=== PATIENT | female | born 1990 | race Caucasian/White ===

== ENCOUNTER → 2018-08-02 16:16 | Outpatient (CLI) | payer BC, SELFPAY ==
[2018-08-05 13:29] LABS: HPV Reflexed? NOT INDICATED
== END ==
PROVIDERS: Visit Provider Obstetrics & Gynecology
DX: Z12.4 Encounter for screening for malignant neoplasm of cervix (principal)
CPT/HCPCS: 87624; 88175; G0145

== ENCOUNTER → 2019-01-16 11:57 | Outpatient (CLI) | payer OTHER, SELFPAY ==
[2019-01-16 14:29] LABS: hCG Titer Quant., Serum 9150 mIU/mL (1-3)
[2019-01-16 16:34] LABS: Chlamydia Trachomatis by PCR Negative (Negative); Neisserai gonorrhoeae by PCR Negative (Negative); Probe Check PASS; Sample Adequacy Control PASS; Specimen Processing Control PASS
== END ==
PROVIDERS: Visit Provider Advanced Practice Midwife
DX: N91.2 Amenorrhea, unspecified (principal); Z11.3 Encounter for screening for infections with a predominantly sexual mode of transmission
CPT/HCPCS: 36415; 84702; 87491; 87591

== ENCOUNTER → 2019-01-31 11:30 | Outpatient (CLI) | payer OTHER, SELFPAY ==
[2019-01-31 13:33] LABS: Absolute Lymphocyte Count 1.55 X10^3/uL (0.83-4.51); Absolute Neutrophil Count 5.9 X10^3/uL (2.0-7.7); Basophil# 0.01 X10^3/uL; Basophil% 0.1 % (0-1); Color, Urine Yellow (Yellow); Eosinophil# 0.04 X10^3/uL; Eosinophils% 0.5 % (0-5); Glucose, Dipstick Normal (Normal); Hematocrit 41.3 % (37-47); Hemoglobin 13.7 g/dL (12.0-15.0); Ketone-Dipstick Negative (Negative); Leukocyte Esterase-Dipstick 100 /ul (Negative); Lymphocyte # 1.55 X10^3/ul (4.0); Lymphocyte % 19.5 % (19-41); Mean Corp Hgb Conc 33.2 g/dL (32-36); Mean Corpuscular Hgb 31.1 pg (27.0-32.0); Mean Corpuscular Volume 93.7 fL (81-99); Mean Platelet Vol. 12.6 fl (6.2-12.0); Monocyte# 0.45 X10^3/uL; Monocyte% 5.7 % (0-10); NRBC Flagged by Analyzer 0 % (0-5); Neutrophil # 5.88 X10^3/uL (2.7-7.7); Neutrophil % 73.9 % (47-70); Nitrite-Dipstick Negative (Negative); Occult Blood-Urine 25 /ul (Negative); Platelet Count 133 K/mm3 (150-450); Protein-Dipstick Negative (Negative); RBC Distribution Width CV 11.2 % (11.6-14.6); RBC Distribution Width SD 38.7 fl (35.1-43.9); Red Blood Count 4.41 M/mm3 (4.2-5.4); Specific Gravity, Urine 1.025 (1.002-1.030); Urine Bilirubin Dipstick Negative (Negative); Urine Clarity Sl. Cloudy (Clear); Urine Urobilinogen Normal (Normal)
[2019-01-31 13:55] LABS: Amphetamine Urine VISTA NEGATIVE (<1000 ng/mL); Barbiturate Urine VISTA NEGATIVE (< 200 ng/mL); Benzodiazepine Urine VISTA NEGATIVE (< 200 ng/mL); Cocaine Urine VISTA NEGATIVE (< 300 ng/mL); Ecstacy Urine VISTA NEGATIVE (< 500 ng/mL); Methadone Urine VISTA NEGATIVE (< 300 ng/mL); PCP Urine VISTA NEGATIVE (< 25 ng/mL); THC Urine VISTA NEGATIVE (< 50 ng/mL); Vista UDS pH Range 5
[2019-01-31 13:59] LABS: Thyroid Stim Hormone (TSH) 0.75 uIU/mL (0.358-3.74)
[2019-01-31 14:40] LABS: HIV - WCH Non-Reactive (Nonreactive); Hepatitis B Surface Antigen Non-Reactive (Nonreactive); Hepatitis C Antibody Non-Reactive (Nonreactive); Rubella IgG 306.5 IU/mL; Vitamin D,25 Hydroxy 21.2 ng/mL (29.95-100.01)
[2019-02-03 02:41] LABS: Prenatal RPR NONREACTIVE (NONREACTIVE)
== END ==
PROVIDERS: Visit Provider Obstetrics & Gynecology
DX: Z34.81 Encounter for supervision of other normal pregnancy, first trimester (principal)
CPT/HCPCS: 36415; 80307; 81002; 82306; 84443; 85025; 86703; 86762; 86803; 87340

== ENCOUNTER → 2019-04-03 09:19 | Outpatient (CLI) | payer OTHER, SELFPAY | PROVIDERS: Referring Provider Obstetrics & Gynecology; Visit Provider Obstetrics & Gynecology | DX: R00.2 Palpitations (principal) | CPT/HCPCS: 93225; 93226 ==

== ENCOUNTER → 2019-06-27 15:37 | Outpatient (CLI) | payer OTHER, SELFPAY ==
[2019-06-27 17:09] LABS: Hematocrit 32.7 % (37-47); Hemoglobin 10.5 g/dL (12.0-15.0); Mean Corp Hgb Conc 32.1 g/dL (32-36); Mean Corpuscular Hgb 29.4 pg (27.0-32.0); Mean Corpuscular Volume 91.6 fL (81-99); Mean Platelet Vol. 12.4 fl (6.2-12.0); Platelet Count 130 K/mm3 (150-450); RBC Distribution Width CV 11.8 % (11.6-14.6); RBC Distribution Width SD 39.2 fl (35.1-43.9); Red Blood Count 3.57 M/mm3 (4.2-5.4)
[2019-06-27 17:12] LABS: Glucose Challenge Gest 1H 50g 100 mg/dL (70-140)
[2019-06-27 17:25] LABS: Vitamin D,25 Hydroxy 34.6 ng/mL
== END ==
PROVIDERS: Referring Provider Obstetrics & Gynecology; Visit Provider Obstetrics & Gynecology
DX: Z34.83 Encounter for supervision of other normal pregnancy, third trimester (principal)
CPT/HCPCS: 36415; 82306; 82950; 85027

== ENCOUNTER → 2019-07-26 10:38 | Outpatient (CLI) | payer OTHER, SELFPAY ==
[2019-07-26 11:29] LABS: Hematocrit 35.5 % (37-47); Hemoglobin 11.4 g/dL (12.0-15.0); Mean Corp Hgb Conc 32.1 g/dL (32-36); Mean Corpuscular Hgb 29.8 pg (27.0-32.0); Mean Corpuscular Volume 92.7 fL (81-99); Mean Platelet Vol. 11.7 fl (6.2-12.0); Platelet Count 123 K/mm3 (150-450); RBC Distribution Width CV 14.6 % (11.6-14.6); RBC Distribution Width SD 48.6 fl (35.1-43.9); Red Blood Count 3.83 M/mm3 (4.2-5.4); White Blood Count 11.5 K/mm3 (4.4-11.0)
== END ==
PROVIDERS: Visit Provider Obstetrics & Gynecology
DX: O99.113 Other diseases of the blood and blood-forming organs and certain disorders involving the immune mechanism complicating pregnancy, third trimester (principal); D69.6 Thrombocytopenia, unspecified; Z3A.00 Weeks of gestation of pregnancy not specified
CPT/HCPCS: 36415; 85027

== ENCOUNTER → 2019-08-21 | Outpatient (CLI) | payer OTHER, SELFPAY | END | disposition home or self-care (01) | PROVIDERS: Visit Provider Obstetrics & Gynecology | DX: Z36.85 Encounter for antenatal screening for Streptococcus B (principal) | CPT/HCPCS: 87081 ==

== ENCOUNTER 2019-08-24 00:05 | Inpatient (IN) | payer OTHER, SELFPAY ==
[2019-08-24] VITALS (66 sets, daily range): BP systolic 80–143; BP diastolic 49–86; PULSE 84–202; RESP 16; TEMP 36.7–38.4; O2SAT 86–100; BMI 25.6
[2019-08-24] MEDS: Lactated Ringers 1,000 ML 50 ML IV (00:35)
[2019-08-24] MEDS: Lactated Ringers 500 ML 999 ML IV ×3 (00:55→07:39)
[2019-08-24 01:07] LABS: Absolute Lymphocyte Count 2.53 X10^3/uL (0.83-4.51); Basophil# 0.05 X10^3/uL; Basophil% 0.3 % (0-1); Eosinophil# 0.19 X10^3/uL; Eosinophils% 1.2 % (0-5); Hematocrit 37.2 % (37-47); Lymphocyte # 2.53 X10^3/ul (4.0); Lymphocyte % 16.6 % (19-41); Mean Corp Hgb Conc 32.3 g/dL (32-36); Mean Corpuscular Hgb 29.7 pg (27.0-32.0); Mean Corpuscular Volume 92.1 fL (81-99); Mean Platelet Vol. 12.2 fl (6.2-12.0); Monocyte# 1.36 X10^3/uL; Monocyte% 8.9 % (0-10); NRBC Flagged by Analyzer 0 % (0-5); Neutrophil # 10.95 X10^3/uL (2.7-7.7); Neutrophil % 71.7 % (47-70); Platelet Count 132 K/mm3 (150-450); RBC Distribution Width CV 14.3 % (11.6-14.6); RBC Distribution Width SD 48.7 fl (35.1-43.9); Red Blood Count 4.04 M/mm3 (4.2-5.4); White Blood Count 15.3 K/mm3 (4.4-11.0)
[2019-08-24 03:09] LABS: Probe Check PASS
[2019-08-24 03:10] LABS: Group B Strep DNA By PCR POSITIVE (Negative)
[2019-08-24] MEDS: Oxytocin 30 units/NS 500 ml 30 UNITS/500 ML IV.SOLN IV (03:58)
[2019-08-24] MEDS: Lactated Ringers 1,000 ML 200 ML IV ×2 (06:59→13:37)
[2019-08-24] MEDS: fentaNYL-bupivacaine (epidural) 100 ML BAG EPIDURAL ×3 (08:00→12:53)
--- NOTE | 2019-08-24 08:04 | HP.PCM_ITS ---
- Problem List (1) 36 weeks gestation of Status: Acute (2) Spontaneous rupture of amniotic membranes Status: Acute History Date of Admission: 08/24/19 Final MARGO: 09/15/19 Final MARGO Source: US <20 weeks Gestational age: 36 Weeks and 6 Days History of this : This is a 29 year-old, G [2], P [0], at 36 weeks gestational age. Allergies No Known Allergies Allergy (Verified 08/24/19 01:13) Home Medications: Home Medications Vits [Prenatabs FA] 1 tab PO DAILY 08/24/19 Smoking Status: Never smoker Alcohol: None Number of Fetus(es): 1 NST - FHR Rate Baby A Baseline: 140 Variability:: Moderate Accelerations:: 15 x 15 Decelerations:: Variable NST Reactive:: Yes FHR Category:: Category II Uterine Activity:: Q3 minutes History Past Pregnancies: PRIOR DELIVERY HISTORY DEL DATE GEST LAB WT LB WT OZ TYPE ANES LABOR TX May 14 6 0 0 0 Sab General No Labs: Mom's Problem List Problem Status Onset Code 36 weeks gestation of Acute [id number].[id number] Spontaneous rupture of amniotic membranes Acute Mom's Labs & Results 08/24/19 08/24/19 08/24/19 00:03 00:20 00:35 WBC 15.3 H RBC 4.04 L Hgb 12.0 Hct 37.2 MCV 92.1 MCH 29.7 MCHC 32.3 RDW Std Deviation 48.7 H RDW Coeff of Johanna 14.3 Plt Count 132 L MPV 12.2 H Immature Gran % (Auto) 1.300 H Neut % (Auto) 71.7 H Lymph % (Auto) 16.6 L Mclean % (Auto) 8.9 Eos % (Auto) 1.2 Baso % (Auto) 0.3 Absolute Neuts (auto) 11.0 H Absolute Lymphs (auto) 2.53 Nucleated RBC % 0 Group B Strep DNA POSITIVE H Specimen Comment Not Reportable Blood Type A POSITIVE Antibody Screen NEGATIVE Course Did the patient receive Yes care? Labs Blood Type: A RH: POSITIVE RPR/VDRL/Syphilis Nonreactive Rubella status Immune HbSAg Negative Date Done: 01/31/19 Chlamydia Negative Gonorrhea Negative HIV/AIDS Non-Reactive Group B Strep: Collected on Admission Current Obstetrical History Gestational Diabetes No Incompetent Cervix No Infertility No IUGR No Macrosomia No Hypertension/Pre-eclampsia No Placenta Previa/Abruption No PTL/PROM Yes Uterine anomaly No Oligohydramnios No Polyhydramnios No Multiple gestation No Past Medical History Asthma No Diabetes No Hypertension No Heart disease No Mitral valve prolapse No Neurologic/Seizure disorder/ No Migraines Kidney disease No Liver disease No Varicosities No Clotting disorders/Hx of DVT No Thyroid Dysfunction No Other medical diseases No Psychiatric disorders No Major trauma No Abnormal PAP smear No Sleep apnea No Mammogram in the last 2 years No Enter DETAILS of medical pt wore Holter monitor early (first history week of April) for heart palpitations, then it stopped Social History Marital Status: Alleged father Victor Manuel Keating Hx Smoking No Smoking Status Never smoker Expected Delivery Method: Spontaneous Vaginal Number of Visits: 13 Review of Systems Constitutional: Denies: Chills, Fever, Weight Change HEENT: Denies: Head Aches, Sinus Congestion, Sinus Drainage Cardiovascular: Denies: Chest Pain, Palpitations Respiratory: Denies: Cough, Shortness of breath at rest, Sputum production Gastrointestinal: Denies: Abdominal Pain, Nausea, Vomiting Genitourinary: Denies: Dysuria Musculoskeletal: Denies: Joint Pain, Joint Tenderness Skin: Denies: Rash, Wounds Neurological: Denies: Numbness, Tingling, Focal weakness Psychiatric: Denies: Anxiety, Depression, Homicidal Ideations, Suicidal Ideations Hematologic/ Lymphatic: Denies: Easy Bruising, Easy Bleeding Physical Exam Vitals: Vital Signs Temp Pulse BP Pulse Ox 98.6 F 103 H 110/66 87 08/24/19 06:22 08/24/19 08:03 08/24/19 08:03 08/24/19 08:02 General: Alert, Oriented x3, No apparent distress HEENT: Atraumatic, Normocephalic. 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 Negative for: Vulvar lesions Estimated gestational size: Appropriate for gestational size Presentation: Cephalic Cervix Dilation (cm): 3 Station: -1 Effacement (%): 70 Assessment/Plan All Active Problems 36 weeks gestation of (Acute) Spontaneous rupture of amniotic membranes (Acute) A/P: This is a 29 year-old, G [2], P [0], at 36 weeks gestational age. Here with SROM at 2300 08/23/2019 NST Category II with + accels, variables, moderate variability, UC Q3 minutes Epidural just placed Will restart Pitocin for augmentation after latent labor Expect Essential Procedure Criteria Procedure Essential: Yes Criteria Note: SROM Labor Risk to Patient if Procedure Delayed: Threat to patient's life if surgery or procedure is not performed
--- NOTE | 2019-08-24 08:30 | PCM.PN.BLA ---
Progress Note LABOR PROGRESS NOTE Uncomfortable with contractions. Just finished epidural. AVSS GEN - NAD, AAO x3 FHR 140, moderate variability, + acceleration 10 x 10, + deceleration - timing unclear TOCO 2-3/10 min SVE 4/70/-2, soft and midposition A/P: 29yo @ 36 6/7wga with PROM in latent labor, Cat I FHR -Continue pitocin as tolerated by mother and fetus -Will plan to place IUPC when more comfortable in next hour. -Continue PCN for GBS pos NAAT STROKE Vital Signs/Narrative: Vital Signs Temp Pulse BP Pulse Ox 08/24/19 09:35 103 H 100 08/24/19 08:47 93 99/62 08/24/19 08:43 95 99 08/24/19 08:41 97 93/54 L 08/24/19 08:38 92 91/52 L 100 08/24/19 08:36 97 87/49 L 08/24/19 08:32 99 80/57 L 86 08/24/19 08:29 98.6 F 95 100 08/24/19 08:27 94 101/60 08/24/19 08:18 105 H 100 08/24/19 08:17 105 H 104/57 L 08/24/19 08:13 104 H 100 08/24/19 08:12 100 110/64 08/24/19 08:08 101 H 94/56 L 96 08/24/19 08:07 106 H 113/65 08/24/19 08:03 103 H 110/66 100 08/24/19 08:02 103 H 113/66 87 08/24/19 08:00 102 H 102/57 L 08/24/19 07:57 112 H 99 08/24/19 07:54 105 H 86 08/24/19 07:52 111 H 143/86 H 98 08/24/19 07:46 111 H 98 08/24/19 07:37 202 H 100 08/24/19 07:05 110 H 116/82 H 08/24/19 06:22 98.6 F 96 98/50 L 96
[2019-08-24] MEDS: Ondansetron 4 MG/2 ML Vial IV (08:53)
[2019-08-24] MEDS: 0.9% Saline Lock 10 ML Syringe IV ×2 (08:53→17:19)
[2019-08-24] MEDS: proCHLORPERazine 10 MG/2 ML Vial IV (11:22)
[2019-08-24] MEDS: Acetaminophen 500 MG Tablet 1000 MG PO (13:53)
[2019-08-24] MEDS: Oxytocin 30 units/NS 500 ml 30 UNITS/500 ML IV.SOLN 334 UNITS IV (14:34)
--- NOTE | 2019-08-24 14:46 | OP.PCM_ITS ---
Problem List (1) (spontaneous vaginal delivery) Status: Acute Vaginal Delivery Maternal Presentation: Active Labor, Spontaneous Rupture of Membranes Method of Induction: - - Pitocin augmentation Amniotic Membrane Rupture Type: Spontaneous at home Rupture of Membrane time: 2300h 08/23/19 Amniotic Fluid Description: Clear Final MARGO: 09/15/19 Final MARGO Source: US <20 weeks Gestational age: 36 Weeks and 6 Days Date of Procedure: 08/24/19 Pre-Operative Diagnosis: 36 6/7wga, SROM Post-Operative Diagnosis: 36 6/7wga, SROM Surgery/ Procedure Performed: Vacuum Assisted Vaginal Delivery Anesthesiologist: Abram Bruner Type of Anesthesia: Epidural Description of Procedure: Patient was FD/+1 station on my arrival and pushing to +2 station and OA. FHR Cat II with recurrent deepening variable decelerations. Recent elevated temperature and baseline at 160 bpm concerning for suspected triple I. IV antibiotics ordered. I advised vacuum assisted vaginal delivery given Cat II FHR and anticipating at least additional hour in second stage. Reviewed vacuum associated risks as well as section as alternative. Patient desired to proceed. The Kiwi cap was placed at the flexion point and 500mmHg suction applied at 1409h. Over 20 minutes with 10 pulls and no pop offs, waning maternal effort the head descended, to +5 station. The suction was released and Kiwi cap removed. The infant shoulders delivered with ease to reveal a vigorous female at 1429h. The infant was placed on the maternal abdomen and furt her attended by nursery personnel. The cord was doubly clamped and cut after approximately 4 minutes of life. Cord gases were obtained. The placenta delivered spontaneously and appeared intact on inspection. A small vaginal laceration was repaired with 3-0 Vicryl with hemostasis attained. Perineum was intact Sponge and needle counts correct x 2. Presentation: Vertex Placental Delivery Description: Expressed Placenta Disposition: [facility] Cord Vessel Description: 3 Vessels Nuchal Cord Compression: Without compression Cord Gases drawn per routine: ABG, VBG Cord Entanglement: None Drain: Arboleda to straight drain Estimated Blood Loss: 300 ml A gender: Female (1 minute): 8 (5 minute): 9 Episiotomy Description: None Laceration: Vaginal Extension/lac Medications given after delivery: IV Pitocin Complications: None
[2019-08-24] MEDS: Acetaminophen 325 MG Tablet PO (22:28)
[2019-08-25 03:58] VITALS: BP 96/58; PULSE 85; RESP 16; TEMP 36.6
[2019-08-25] MEDS: Ibuprofen 600 MG Tablet PO ×3 (04:00→20:34)
[2019-08-25] MEDS: Acetaminophen 325 MG Tablet PO (06:03)
[2019-08-25 07:45] VITALS: BP 89/55; PULSE 95; RESP 16; TEMP 36.5
--- NOTE | 2019-08-25 09:15 | PCM.PN.OB ---
Patient Problems: Active and Suspected Problems 36 weeks gestation of (Acute) Spontaneous rupture of amniotic membranes (Acute) (spontaneous vaginal delivery) (Acute) Subjective: No issues overnight. Pain is controlled. OOB to chair. Denies heavy lochia. , working on latch with clinical education consultant. Voiding without difficulty. Objective: avss - Physical Exam Vitals/I&O's: Vital Signs Temp Pulse Resp BP Pulse Ox 97.7 F L 95 16 89/55 L 96 08/25/19 07:45 08/25/19 07:45 08/25/19 07:45 08/25/19 07:45 08/24/19 17:08 Oxygen Delivery Method Room Air Weight: 74.298 kg Body Mass Index (BMI) 25.6 Intake and Output for Last 24 Hours 08/23/19 08/24/19 08/25/19 23:59 23:59 23:59 Intake Total 5242.59 / 5242.59 Output Total 5350 / 5350 Balance -107.41 / -107.41 General: Alert, Oriented x3, Cooperative, No apparent distress HEENT: Atraumatic, Normocephalic Lungs: Clear to auscultation, Normal air movement Cardiovascular: Regular rate, Regular Rhythm, Normal S1, Normal S2 Abdomen: Soft, Non Tender, Non-Distended, - - Fundus firm and nontender Extremities: No Calf Tenderness, - - trace LE edema Neurological: Neuro grossly intact Psych/Mental Status: Normal Affect, Appropriate, Alert and oriented to time, place, person, mood and affect Current Medications Acetaminophen (Tylenol) 325 - 650 mg PO Q4H PRN PRN PRN Reason: Pain Score 1-3/10 Last Admin: 08/25/19 06:03 Dose: 650 mg Documented by: Bisacodyl (Dulcolax) 10 mg RECTAL UD PRN PRN Reason: If no BM Dibucaine (Dibucaine) 1 applic TOPICAL TID PRN PRN; Protocol PRN Reason: Discomfort Hydrocortisone (Hytone) 1 applic TOPICAL TID PRN PRN; Protocol PRN Reason: Discomfort Ibuprofen (Motrin) 600 mg PO Q6H PRN PRN PRN Reason: Pain Score 1-3/10 Last Admin: 08/25/19 04:00 Dose: 600 mg Documented by: Methylergonovine Maleate (Methergine) 0.2 mg IM X1 PRN PRN Reason: Excess bleeding/uterine atony Multivit/Folic Acid/Iron (Prenatabs Fa) 1 tablet PO DAILY@1200 BLANCA Senna/Docusate Sodium (Senokot-S, Cristal-Colace) 1 - 2 tablet PO DAILY PRN PRN PRN Reason: Constipation Simethicone (Mylicon) 80 mg PO PCHS PRN PRN Reason: Indigestion/Stomach pain Sodium Chloride () 5 - 15 ml IV UD PRN PRN Reason: SALINE FLUSH Last Admin: 08/24/19 17:19 Dose: 10 ml Documented by: Medical Necessity - Tobacco Use Smoking Status: Never smoker Assessment/Plan All Active Problems 36 weeks gestation of (Acute) Spontaneous rupture of amniotic membranes (Acute) (spontaneous vaginal delivery) (Acute) 29yo P1 PPD#1 s/p VAVD @ 36 6/7wga, doing well. -Rh pos -Routine care - -Plan for d/c home tomorrow
[2019-08-25] MEDS: Prenatal Vits Tablet 1 TABLET PO (11:44)
[2019-08-25 12:00] VITALS: BP 99/61; PULSE 94; RESP 16; TEMP 37.1
[2019-08-25 20:00] VITALS: BP 94/63; PULSE 97; RESP 14; TEMP 36.7
[2019-08-25] MEDS: Senna/Docusate Sodium 1 Tablet PO (20:34)
[2019-08-26 02:00] VITALS: BP 104/64; PULSE 86; RESP 16; TEMP 36.6
[2019-08-26] MEDS: Acetaminophen 325 MG Tablet PO (02:08)
[2019-08-26] MEDS: Ibuprofen 600 MG Tablet PO ×2 (06:05→13:24)
[2019-08-26 08:21] VITALS: BP 88/60; PULSE 74; RESP 16; TEMP 36.9
--- NOTE | 2019-08-26 10:57 | DCINST_ITS ---
Discharge Diet: No Restrictions Discharge Activity: Return to Normal Activity, May not drive while taking narcotic pain medications., May Shower May resume sexual activity in: 4-6 weeks Additional Activity Instructions:: Nothing in the vagina for 4-6 weeks. You may return to work/school in 6 weeks. Call your doctor if your incision/area has: Continuous Slow Oozing, Sudden Increased Bleeding, Increased Pain/ Swelling, Increased Redness, Foul Smelling Discharge Additional Instructions: If you experience any of the following, contact your healthcare provider. * Bleeding that soaks a pad every hour for 2 hours * Fever 100.4 or higher * Unrelieved incision or abdominal pain * Swelling, redness, discharge or bleeding from your incision or episiotomy site * Your incision begins to separate * Problems urinating (including inability to urinate or burning while urinating). * Visual changes * Severe headache * Flu-like symptoms * Pain or redness in one of both of your breasts * Pain, warmth, tenderness or swelling in your legs, especially the calf area * Frequent nausea and vomiting * Symptoms of depression or anxiety If you experience any of the following, call 911 or go to the nearest Emergency Room. * Chest pain * Problems breathing * Seizure activity * Partial or complete paralysis of a body part, slurred speech, weakness or drooping of the face, or a sudden inability to walk or hold your balance Allergies/Adverse Reactions: Allergies No Known Allergies Allergy (Verified 08/24/19 01:13) Medications to take at Discharge Vits [Prenatabs FA] 1 tab PO DAILY 08/24/19 Please Follow Up With: Carlee Mukherjee MD When: Call to make an appointment with your doctor in 6 weeks. If you have problems with depression to call immediately. Test Results: Test results from this visit will be discussed in further detail at your follow- up appointment, if applicable.
--- NOTE | 2019-08-26 10:57 | PCM.DCVAG ---
Discharge Diet: No Restrictions Discharge Activity: Return to Normal Activity, May not drive while taking narcotic pain medications., May Shower May resume sexual activity in: 4-6 weeks Additional Activity Instructions:: Nothing in the vagina for 4-6 weeks. You may return to work/school in 6 weeks. Call your doctor if your incision/area has: Continuous Slow Oozing, Sudden Increased Bleeding, Increased Pain/ Swelling, Increased Redness, Foul Smelling Discharge Additional Instructions: If you experience any of the following, contact your healthcare provider. Bleeding that soaks a pad every hour for 2 hours Fever 100.4 or higher Unrelieved incision or abdominal pain Swelling, redness, discharge or bleeding from your incision or episiotomy site Your incision begins to separate Problems urinating (including inability to urinate or burning while urinating). Visual changes Severe headache Flu-like symptoms Pain or redness in one of both of your breasts Pain, warmth, tenderness or swelling in your legs, especially the calf area Frequent nausea and vomiting Symptoms of depression or anxiety If you experience any of the following, call 911 or go to the nearest Emergency Room. Chest pain Problems breathing Seizure activity Partial or complete paralysis of a body part, slurred speech, weakness or drooping of the face, or a sudden inability to walk or hold your balance Allergies/Adverse Reactions: Allergies No Known Allergies Allergy (Verified 08/24/19 01:13) Medications to take at Discharge Vits [Prenatabs FA] 1 tab PO DAILY 08/24/19 Please Follow Up With: Carlee Mukherjee MD When: Call to make an appointment with your doctor in 6 weeks. If you have problems with depression to call immediately. Test Results: Test results from this visit will be discussed in further detail at your follow-up appointment, if applicable.
--- NOTE | 2019-08-26 11:25 | PN.OBGYN_ITS ---
Patient Problems: Active and Suspected Problems 36 weeks gestation of (Acute) Spontaneous rupture of amniotic membranes (Acute) (spontaneous vaginal delivery) (Acute) Subjective: Feeling okay, but reporting some anxiety. It isn't bad, but feels like tiny knots in her stomach. Daughter is now under bili lights and the unknown worries her. Denies heavy bleeding. 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 is going well, but wants to work with at next feed just to make sure she's producing enough. Would like to stay at the hospital with baby if she has to stay for lights. Objective: VSS. Fundus, firm, midline, u/1. Lochia rubra moderate. well. Sli ght anxiety, but understands when to call. - Physical Exam Vitals/I&O's: Vital Signs Temp Pulse Resp BP Pulse Ox 98.5 F 74 16 88/60 L 96 08/26/19 08:21 08/26/19 08:21 08/26/19 08:21 08/26/19 08:21 08/24/19 17:08 Oxygen Delivery Method Room Air Weight: 74.298 kg Body Mass Index (BMI) 25.6 Intake and Output for Last 24 Hours 08/24/19 08/25/19 08/26/19 23:59 23:59 23:59 Intake Total 5242.59 / 5242.59 Output Total 5350 / 5350 Balance -107.41 / -107.41 General: Alert, Oriented x3, Cooperative HEENT: Atraumatic, PERRLA, EOMI, Normocephalic Neck: Supple, No JVD, Negative Carotid Bruits Lungs: Clear to auscultation, Normal air movement Cardiovascular: Regular rate, No murmurs Abdomen: Bowel Sounds Present, Soft, Non Tender, Passing Flatus Extremities: No edema, Capillary Refill Less than 3 Seconds Skin: No rashes, No breakdown Musculoskeletal: No Tenderness to Palpation of Joints or Extremities Neurological: Cranial nerves II-XII grossly intact Psych/Mental Status: Normal Affect, Appropriate, Anxious - over daughter under bili lights and the unknown Current Medications Acetaminophen (Tylenol) 325 - 650 mg PO Q4H PRN PRN PRN Reason: Pain Score 1-3/10 Last Admin: 08/26/19 02:08 Dose: 650 mg Documented by: Bisacodyl (Dulcolax) 10 mg RECTAL UD PRN PRN Reason: If no BM Dibucaine (Dibucaine) 1 applic TOPICAL TID PRN PRN; Protocol PRN Reason: Discomfort Hydrocortisone (Hytone) 1 applic TOPICAL TID PRN PRN; Protocol PRN Reason: Discomfort Ibuprofen (Motrin) 600 mg PO Q6H PRN PRN PRN Reason: Pain Score 1-3/10 Last Admin: 08/26/19 06:05 Dose: 600 mg Documented by: Methylergonovine Maleate (Methergine) 0.2 mg IM X1 PRN PRN Reason: Excess bleeding/uterine atony Multivit/Folic Acid/Iron (Prenatabs Fa) 1 tablet PO DAILY@1200 BLANCA Last Admin: 08/25/19 11:44 Dose: 1 tablet Documented by: Senna/Docusate Sodium (Senokot-S, Cristal-Colace) 1 - 2 tablet PO DAILY PRN PRN PRN Reason: Constipation Last Admin: 08/25/19 20:34 Dose: 1 tablet Documented by: Simethicone (Mylicon) 80 mg PO PCHS PRN PRN Reason: Indigestion/Stomach pain Sodium Chloride () 5 - 15 ml IV UD PRN PRN Reason: SALINE FLUSH Last Admin: 08/24/19 17:19 Dose: 10 ml Documented by: Medical Necessity - Tobacco Use Smoking Status: Never smoker Assessment/Plan All Active Problems 36 weeks gestation of (Acute) Spontaneous rupture of amniotic membranes (Acute) (spontaneous vaginal delivery) (Acute) 29yo P1 PPD#2 s/p VAVD @ 36 6/7wga, doing well. -Routine care - -Daughter under bilirubin lights -Plan for d/c to hotel status and stay until tomorrow -Will do social visit in AM to check on anxiety
[2019-08-26 15:22] VITALS: BP 109/62; PULSE 94; RESP 16; TEMP 36.9
[2019-08-26] MEDS: Prenatal Vits Tablet 1 TABLET PO (15:25)
[2019-08-26 17:50] VITALS: BP 109/62; PULSE 94; RESP 16; TEMP 36.9
== END 2019-08-26 18:20 | disposition home or self-care (01) | DRG 806 ==
PROVIDERS: Admitting Provider Obstetrics & Gynecology; Referring Provider Obstetrics & Gynecology; Visit Provider Obstetrics & Gynecology
DX: O76 Abnormality in fetal heart rate and rhythm complicating labor and delivery (principal); O71.4 Obstetric high vaginal laceration alone; Z37.0 Single live birth; O42.913 Preterm premature rupture of membranes, unspecified as to length of time between rupture and onset of labor, third trimester; Z3A.36 36 weeks gestation of pregnancy; O99.824 Streptococcus B carrier state complicating childbirth
CPT/HCPCS: 59025; 59050; 85025; 86850; 86900; 86901; 87653; 99218; J7120; A4216; G0378; J2405; J3490

== ENCOUNTER 2019-08-30 11:21 | Day surgery (SDC) | payer OTHER, SELFPAY ==
[2019-08-24 01:17] VITALS: BMI 25.6
== END 2019-08-30 12:24 | disposition home or self-care (01) ==
LOC: SDC 11:24
PROVIDERS: Visit Provider Anesthesiology
PROC: 3E0R3GC Introduction of Other Therapeutic Substance into Spinal Canal, Percutaneous Approach (ICD-10-PCS; CPT 62273; principal; 2019-08-30 11:00)
DX: G97.1 Other reaction to spinal and lumbar puncture (principal)
CPT/HCPCS: 62273; J7120

== ENCOUNTER → 2020-07-12 | Outpatient (CLI) | payer OTHER, SELFPAY ==
[2019-08-24 01:17] VITALS: BMI 25.6
[2020-07-16 06:07] LABS: Chlamydia By Nucleic Acid AMP Negative (Negative)
[2020-07-16 08:49] LABS: Gonococcus By Nucleic Acid AMP Negative (Negative)
== END | disposition home or self-care (01) ==
LOC: LABSPEC 13:46
PROVIDERS: Visit Provider Student in an Organized Health Care Education/Training Program
DX: Z11.3 Encounter for screening for infections with a predominantly sexual mode of transmission (principal)
CPT/HCPCS: 87491; 87591

== ENCOUNTER → 2020-07-16 09:09 | Outpatient (CLI) | payer OTHER, SELFPAY ==
[2019-08-24 01:17] VITALS: BMI 25.6
[2020-07-16 10:49] LABS: Absolute Lymphocyte Count 1.42 X10^3/uL (0.83-4.51); Absolute Neutrophil Count 5.4 X10^3/uL (2.0-7.7); Basophil# 0.03 X10^3/uL; Basophil% 0.4 % (0-1); Eosinophil# 0.05 X10^3/uL; Eosinophils% 0.7 % (0-5); Hematocrit 41.7 % (37-47); Hemoglobin 13.7 g/dL (12.0-15.0); Lymphocyte # 1.42 X10^3/ul (4.0); Lymphocyte % 19.1 % (19-41); Mean Corp Hgb Conc 32.9 g/dL (32-36); Mean Corpuscular Volume 94.3 fL (81-99); Mean Platelet Vol. 13.3 fl (6.2-12.0); Monocyte# 0.52 X10^3/uL; NRBC Flagged by Analyzer 0 % (0-5); Neutrophil % 72.5 % (47-70); Platelet Count 135 K/mm3 (150-450); RBC Distribution Width CV 11.6 % (11.6-14.6); RBC Distribution Width SD 39.9 fl (35.1-43.9); Red Blood Count 4.42 M/mm3 (4.2-5.4); White Blood Count 7.4 K/mm3 (4.4-11.0)
[2020-07-16 11:36] LABS: HIV - WCH Non-Reactive (Nonreactive); Hepatitis B Surface Antigen Non-Reactive (Nonreactive); Hepatitis C Antibody Non-Reactive (Nonreactive); Rubella IgG Reactive (Nonreactive); Syphilis Antibodies Non-reactive
== END ==
PROVIDERS: Visit Provider Student in an Organized Health Care Education/Training Program
DX: Z34.81 Encounter for supervision of other normal pregnancy, first trimester (principal)
CPT/HCPCS: 85025; 86703; 86762; 86780; 86803; 87086; 87088; 87340

== ENCOUNTER → 2020-12-06 09:27 | Outpatient (CLI) | payer BC, SELFPAY ==
[2019-08-24 01:17] VITALS: BMI 25.6
[2020-12-06 10:33] LABS: Hematocrit 35.7 % (37-47); Hemoglobin 11.5 g/dL (12.0-15.0); Mean Corp Hgb Conc 32.2 g/dL (32-36); Mean Corpuscular Hgb 30.2 pg (27.0-32.0); Mean Corpuscular Volume 93.7 fL (81-99); Mean Platelet Vol. 12.4 fl (6.2-12.0); Platelet Count 104 K/mm3 (150-450); RBC Distribution Width CV 11.8 % (11.6-14.6); RBC Distribution Width SD 40.1 fl (35.1-43.9); Red Blood Count 3.81 M/mm3 (4.2-5.4); White Blood Count 7.6 K/mm3 (4.4-11.0)
[2020-12-06 10:49] LABS: Glucose Challenge Gest 1H 50g 76 mg/dL (70-140)
== END ==
PROVIDERS: Visit Provider Obstetrics & Gynecology
DX: Z34.82 Encounter for supervision of other normal pregnancy, second trimester (principal)
CPT/HCPCS: 36415; 82950; 85027

== ENCOUNTER 2020-12-18 18:46 | Outpatient (CLI) | payer BC, SELFPAY ==
[2020-12-18 18:50] VITALS: BP 125/74; PULSE 105; TEMP 36.5
[2020-12-18 18:54] VITALS: BMI 20.7
--- NOTE | 2020-12-18 18:59 | OB.TRI.HP_ITS ---
HPI - General HPI Narrative COOPER CROCKETT, is a 30 F who presents with c/o pelvic pressure and pain. She was lying down resting, when she felt immense pelvic pressure and felt something hard vaginally like a head. Her , Victor Manuel, looked and noted some large amount of purplish tissue. Patient denies passage of tissue, discharge, mucus or fluid outside of the vagina. Denies urinary retention or feels of stool retention. Maternal Data Information MARGO Calculator Estimated Delivery Date Method Current WG Current Estimate 02/26/21 LMP (Certain) 30w 0d Other Estimates 02/26/21 Manual 30w 0d [facility] Medical History (Updated 12/18/20 @ 19:[address] Carlee He MD) Gestational thrombocytopenia Home Medications vit,[id number] 1 tab PO DAILY 08/24/19 [History Last Taken 08/22/19 19:00] Allergy/AdvReac Type Severity Reaction Status Date / Time No Known Allergies Allergy Verified 12/18/20 19:13 Social History Smoking Status: Never smoker History 2 Elective abortions 0 Hx Para 1 Spontaneous abortions 0 Hx # Term Pregnancies 0 Ectopic pregnancies 0 Hx # Pregnancies 1 Multiple births 0 # of living children 1 Past Pregnancies Del. Date Name GA/Weeks Outcome Route Bth Weight Gen Labor Lgth Anesthesia Del Locatn Provider FOB 08/24/19 Scotlyn 36 live - vacuum 6lb 8 oz Female 12 e pidural [facility] Delivery Date: 08/24/19 pprom, labor, chorioamnionitis Carlee Mukherjee Constitutional Constitutional: Reports other Details: shakes Gastrointestinal Gastrointestinal: Reports abdominal pain and other Details: lower belly pressure Genitourinary Genitourinary: Reports abdominal discomfort, contractions, movement, urinary frequency and other Details: no vaginal bleeding, denies mucus plug or fluid leakage ; Denies burning urination, difficulty urinating, flank pain, hematuria, low back pain or urinary incontinence Physical Exam Const alert, oriented x3 and no apparent distress HEENT normocephalic Resp normal respiratory effort and normal air movement GI normal to inspection, nondistended, normoactive bowel sounds, soft to palpation, non-tender and non-distended GI Narrative: No hemorrhoids Inspection: gravid appearance of the vagina normal Narrative: ft/l/h, posterior and firm on exam Exam with Valsalva with no pelvic organ prolapse appreciated Extremity no pedal edema NST FHR Rate Baby A Baseline: 130 Variability:: Moderate Accelerations:: 15 x 15 Decelerations:: None NST Reactive:: Yes FHR Category:: Category I Uterine Activity:: irritability Assessment & Plan (1) 30 weeks gestation of : PLAN: Follow up U/A FFN sent
[2020-12-18 19:34] VITALS: BP 93/55; PULSE 88; TEMP 37.1; O2SAT 99
[2020-12-18 19:51] LABS: Fetal Fibronectin Negative
[2020-12-18 20:02] LABS: Mucous, Urine 0 SEEN /hpf (<or=2+); Red Blood Cells-Urine 0 SEEN /hpf (0-5)
[2020-12-18 20:06] LABS: Color, Urine Yellow (Yellow); Glucose, Dipstick Normal (Normal); Ketone-Dipstick 15 mg/dl (Negative); Leukocyte Esterase-Dipstick 100 /ul (Negative); Nitrite-Dipstick Negative (Negative); Occult Blood-Urine Negative /ul (Negative); Protein-Dipstick 30 mg/dl (Negative); Urine Bilirubin Dipstick Negative (Negative); Urine Clarity Clear (Clear); Urine Urobilinogen Normal (Normal); Urine pH 6.5 (5.0 - 8.0)
[2020-12-18 20:12] LABS: Squamous Epithelial Cells - UA 5-10 SEEN /hpf (5-10); White Blood Cells 5-10 SEEN /hpf (0-5)
[2020-12-18 20:13] LABS: Bacteria 1+ /hpf (None Seen)
--- NOTE | 2020-12-18 21:13 | OB.TRI.NOTE ---
HPI - General HPI Narrative COOPER CROCKETT, is a 30 F who presents c/o pelvic pressure and pain. Symptoms improved from prior, but feels anxious about what had happened previously. Relates contractions less frequent than every 10 minutes since prior evaluation and irregular, mild. Nurse relates spotting on repeat exam. Maternal Data Information MARGO Calculator Estimated Delivery Date Method Current WG Current Estimate 02/26/21 LMP (Certain) 30w 0d Other Estimates 02/26/21 Manual 30w 0d PFSH PFSH Medical History (Updated 12/18/20 @ 21:[address] Carlee He MD) Gestational thrombocytopenia Home Medications vit,[id number] 1 tab PO DAILY 08/24/19 [History Last Taken 08/22/19 19:00] Allergy/AdvReac Type Severity Reaction Status Date / Time No Known Allergies Allergy Verified 12/18/20 19:13 Social History Smoking Status: Never smoker History 2 Elective abortions 0 Hx Para 1 Spontaneous abortions 0 Hx # Term Pregnancies 0 Ectopic pregnancies 0 Hx # Pregnancies 1 Multiple births 0 # of living children 1 Past Pregnancies Del. Date Name GA/Weeks Outcome Route Bth Weight Infant Gen Labor Lgth Anesthesia Del Locatn Provider FOB 08/24/19 Scotlyn 36 live - vacuum 6lb 8 oz Female 12 epidural [facility] Delivery Date: 08/24/19 pprom, labor, chorioamnionitis Carlee Mukherjee Assessment & Plan (1) 30 weeks gestation of : (2) False labor: PLAN: History suggests transient enlarged vulvovaginal varicosity Repeat SVE by RN /-3 with spotting noted. Cervical length performed with 38-48mm, funnel present, 39-47mm with Valsalva Likely difference in examiners over time. Given FFN neg, cervical length long - low risk for labor at this time. Will dc home (3) Cystitis during , antepartum: PLAN: Macrobid x 1 rx to pharmacy f/u Ucx
[2020-12-18] MEDS: Nitrofurantoin Macrocrystals 100 MG Capsule PO (21:35)
== END 2020-12-18 21:50 | disposition home or self-care (01) ==
LOC: WPOUT 18:46 → WP 18:47
PROVIDERS: Visit Provider Obstetrics & Gynecology
DX: O47.03 False labor before 37 completed weeks of gestation, third trimester (principal); O23.13 Infections of bladder in pregnancy, third trimester; Z3A.30 30 weeks gestation of pregnancy
CPT/HCPCS: 59025; 59050; 76815; 81001; 82731; 87086; 87088; 99218; G0378

== ENCOUNTER → 2021-01-14 11:48 | Outpatient (CLI) | payer BC, SELFPAY ==
[2021-01-14 12:07] LABS: Platelet Count 112 K/mm3 (150-450)
== END ==
PROVIDERS: Visit Provider Obstetrics & Gynecology
DX: D69.6 Thrombocytopenia, unspecified (principal)
CPT/HCPCS: 36415; 85049

== ENCOUNTER → 2021-02-04 | Outpatient (CLI) | payer BC, SELFPAY | END | disposition home or self-care (01) | LOC: LABSPEC 13:21 | PROVIDERS: Visit Provider Obstetrics & Gynecology | DX: Z36.85 Encounter for antenatal screening for Streptococcus B (principal) | CPT/HCPCS: 87081 ==

== ENCOUNTER 2021-02-21 14:42 | Inpatient (IN) | payer BC, SELFPAY ==
[2021-02-21] VITALS (29 sets, daily range): BP systolic 84–113; BP diastolic 51–69; PULSE 81–100; TEMP 36.7–37.2; O2SAT 97–100; BMI 22.4
[2021-02-21] MEDS: Lactated Ringers 1,000 ML 50 ML IV (16:00)
[2021-02-21 16:35] LABS: Absolute Neutrophil Count 12.3 X10^3/uL (2.0-7.7); Basophil# 0.03 X10^3/uL; Basophil% 0.2 % (0-1); Eosinophil# 0.06 X10^3/uL; Eosinophils% 0.4 % (0-5); Hematocrit 32.4 % (37-47); Hemoglobin 10.4 g/dL (12.0-15.0); Mean Corp Hgb Conc 32.1 g/dL (32-36); Mean Corpuscular Hgb 27.4 pg (27.0-32.0); Mean Corpuscular Volume 85.5 fL (81-99); Mean Platelet Vol. 12.7 fl (6.2-12.0); Monocyte# 0.84 X10^3/uL; Monocyte% 5.6 % (0-10); NRBC Flagged by Analyzer 0 % (0-5); Neutrophil # 12.25 X10^3/uL (2.7-7.7); Neutrophil % 81.3 % (47-70); Platelet Count 109 K/mm3 (150-450); RBC Distribution Width CV 13.2 % (11.6-14.6); RBC Distribution Width SD 40.5 fl (35.1-43.9); Red Blood Count 3.79 M/mm3 (4.2-5.4); White Blood Count 15.1 K/mm3 (4.4-11.0)
[2021-02-21] MEDS: Oxytocin 30 units/NS 500 ml 30 UNITS/500 ML IV.SOLN IV (16:37)
[2021-02-21] MEDS: Lactated Ringers 500 ML 999 ML IV (18:47)
[2021-02-21] MEDS: fentaNYL-bupivacaine (epidural) 100 ML BAG EPIDURAL (19:38)
[2021-02-21] MEDS: Lactated Ringers 1,000 ML 200 ML IV (23:23)
[2021-02-22] VITALS (19 sets, daily range): BP systolic 92–110; BP diastolic 52–72; PULSE 72–103; RESP 12–18; TEMP 36.6–37.3; O2SAT 97–100
[2021-02-22] MEDS: fentaNYL-bupivacaine (epidural) 100 ML BAG EPIDURAL (00:01)
[2021-02-22] MEDS: Oxytocin 30 units/NS 500 ml 30 UNITS/500 ML IV.SOLN 334 UNITS IV (01:50)
--- NOTE | 2021-02-22 01:55 | HP.PCM_ITS ---
History and Physical Date of Admission: 02/21/21 ACOG ANTEPARTUM RECORD - HISTORY AND PHYSICAL (02/22/2021) Name: MARIBEL KEATING History of this : This is a 31 year old [id number] presents at 39 wks + 2 days gestation for induction for persistent decreased movement. OB Physician: Carlee He MD [place]'s Physician: [facility] ...................................................................... : 1990 Age: 31 Address: [address] [place] [address] Phone: H) [phone]) [phone] Insurance Carrier: [employer] [id number] Emergency Contact: VICTOR MANUEL KEIRA [phone] ...................................................................... Final MARGO: 02/26/21 By Ultrasound: 7 weeks 6 days PARITY: (G-Total Pregnancies P-Fullterm,Premature,Induced AB,Spont AB, Ectopics, Multiple,Living) MARGO CONFIRMATION: By LMP: 05/22/20 By First Ultrasound Exam: 02/23/21 Final MARGO: 02/26/21 OB PROBLEM LIST: Hx low iron w first pg. Current vitamins have NO iron. Declines AFP and CF. May want [id number]. Info given. Palpitations - Holter - occas sinus tach Thrombocytopenia ALLERGIES: No Known Drug Allergies MEDICATIONS: aspirin 81 mg tablet,delayed release One tablet by mouth daily Gummy 400 mcg-35 mg-25 mg-5 mg chewable tablet Two pills by mouth once a day promethazine 12.5 mg tablet One pill by mouth every six hours prn nausea/vomiting Supplement (s) [No Strength] Zinc 40 to 50 mg daily Vitamin C 500 mg tablet One tablet by mouth daily Vitamin D3 50 mcg (2,000 unit) capsule One capsule by mouth daily Zyrtec 10 mg tablet One pill by mouth once a day -- Amenorrhea. SOCIAL HISTORY: Smoking - Never Alcohol Use - socially not while Diet - balanced Diet, caffeine < 2 drinks per day and Water intake tries for 1-2 liters. Lifestyle - Exercise - Less since crampiness/spotting. 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 Drug Use - denies use of street drugs Sexual Activity - Residence - with Place of - [place] Spouse-Sig Other Name - Victor Manuel Keating Spouse-Sig Other Occupation - [employer] Spouse-Sig Other Phone No - [phone] Children Name(s) - Eileen ([facility] PRIOR DELIVERY HISTORY DEL DATE GEST LAB WT LB WT OZ TYPE ANES LABOR TX May 16 6 0 0 0 Sab General No Aug 20 36 12 6 8 Vag Epidural No ANTEPARTUM FLOW CHART VISIT GE RTC FU F F LA U U DATE WK MD WKS HT PN HR M SS BP ED WT LA GL D EF ST __ ____ ___ __ __ ___ __ __ __ ___ __ __ __ ___ __ 22 Oct 39 + + 104/64 0 147 - - 19 Jan 38 SHM 1 35 V + de 94/68 0 146 tr - 3+ 60 -3 12 Oct 37 SHM 1 35 V + + 100/62 0 146 - - 3 50 -3 05 Oct 36 SHM 1 35 V + + 102/70 0 141 - - 2+ 50 -3 28 Sep 35 SHM 1 34 V + + 102/60 0 140 ne ne 14 Sep 33 SHM 2 32 V + + 106/74 0 139 tr ne 01 Sep 32 SHM 2 32 V + + 114/62 0 136 tr ne 24 Dec 30 SHM 2 + 90/52 0 136 tr - 20 Dec 30 SHM 2 30 V + + 92/58 0 136 - - 06 Dec 28 SHM 2 28 V + + 80/50 0 135 - - 14 Nov 24 SHM 3 26 ? + + 108/80 0 133 - - 16 Oct 21 SHM 4 21 + + 90/56 0 129 - - 01 Oct 18 SHM 4 18 on ? 96/66 0 129 - - 19 September 16 JMW 2 17 U+ ? 102/60 0 126 ne ne Aug 12 CM 4 +U O 98/58 0 124 - - 16 Jul 7 CM 4 + 102/60 0 125 tr ne ANTEPARTUM NOTE(S): Feb 21 2021: Feb 18 2021: ctx's today Feb 11 2021: uncomfortable Feb 04 2021: See note Jan 28 2021: Doing Well Jan 14 2021: Jan 01 2021: Pt has prolapse and fitting for pesssary Dec 24 2020: see note Dec 20 2020: ER visit Dec 06 2020: very sore in lower abdomen Nov 13 2020: feeling well. Glucose given for next visit. AM Oct 16 2020: see note Oct 01 2020: No concerns expressed Sep 18 2020: US today, Declines AFP Aug 19 2020: Jul 16 2020: genetic packet, labs today COMPREHENSIVE ANTEPARTUM NOTE(S): Feb 21 2021: Maribel is here for a NST at 39 w 2 d. She reports that she is feeling some FM this morning, but last night until this morning, she felt none. She states that she is having some irregular ctx's. Denies LoF, and reports that on Wednesday, she had a small amount of light pink discharge. No edema noted. 2 mild ctx's noted on EEFM during NST. Maribel is very pleased that she felt some FM during NST. NST r Feb 21 2021: Persistent decreased mvmt. Induction of labor pending [facility] WP. They will allow for continuous monitoring. Paperwork completed. LMT Feb 19 2021: Maribel is here following call to Triage. Some contr last night. Unsure if she's felt movement today. If so it's very faint. FHT located w ease- Maribel is relieved. During NST felt several vague movements. NST reactive per Dr GRIFFITH. Pt concerned about lack of credible movements and knowing when to notify office. BPP done. NATASHA. Feb 18 2021: NST for dec FM Feb 11 2021: Uncomfortable, achy. Reviewed late term discomforts, SROM, labor, and FM. LMT Feb 11 2021: Cervix moderate and midposition. US today confirms CEPHALIC and grossly normal PHILLIP. Discussed IOL indications. Labor precautions. Feb 10 2021: H taken to OB. tkg Feb 04 2021: GBS today, LARC completed and declined. She does report tingling in hands and feet most of the time. No edema reported or appreciated in exam today. Reviewed late discomforts, possible nerve compression that may be causing the tingling. FM, SROM, and labor reviewed. LMT Feb 04 2021: GBS today, reviewed indications. Prior hx delivery at 36wga. Si/sx labor, SROM reviewed. Pt emphasizes that epidural desired for delivery. Concerned about worsening prolapse due to pushing. Hx spinal headache prior. Reassured, unlikely to recur. Jan 28 2021: Doing well. Good FM . Is unsure if she wants pessary in use before delivery, may want to wait. Jan 28 2021: Concerned about weight gain as was 160lb when she had her first. I reviewed 16lb weight gain in all including regain of initial lost weight. S c/w dates. Pt reassured. PTL, ROM, FM precautions. Discussed passive pushing techniques in labor, plan to labor down given significant prolapse. Jan 20 2021: Entry for 01/14/21: Started pelvic floor therapy and feels this has helped with pelvic pressure and prolapse. No prolapse flares since she started. Jan 14 2021: Maribel offers no compliants today. Will have labs done while here. Dec 24 2020: Maribel is here for evaluation of protrusion from vagina. Dec 20 2020: Maribel is here for a PNV at 30 wks. Good FM. No edema present. Was seen at [facility] ER this week due to intense ctx's. Since the visit, pt continues to have light bleeding and soreness. Moderate ctx's since. No other concerns expressed. MK Dec 20 2020: Was seen on 12/18/20 at [facility] L for contractions, false labor. Hx suggests transient vulvovaginal varicosity swelling associated with tetanic contractions. Ruled out for PTL with negative FFN and long cervical length. She started Macrobid for possible UTI. Reviewed Ucx results today negative. Given no improvement of discomfort will d/c. Relates light bleeding now resolved, feels it was related to c Dec 06 2020: Maribel is here for visit. Labs today for GCT, CBC. Very sore in lower abdomen at times. Reviewed maternity support belt. She could consider PT if desires and declines at this time. LMT Dec 06 2020: Recommend maternity belt for lower abdominal, hip and back soreness. PTL, ROM, FM precautions. Discussed PPBC including LARCs, reviewing potential placement. Advised Tdap, reviewed indications Oct 16 2020: Maribel is here for visit. Planned CL in 2 weeks. Considering not doing the Progesterone at this time. Will discuss further with Dr LO. Will give glucola next visit. LMT Oct 16 2020: Anatomy scan wnl, ANTERIOR placenta, EFW 63rd%. FEMALE c/s NIPT. Pt considering progesterone supplementation further. CL 42mm. PTL precautions. Discussed movement. Oct 01 2020: Maribel is here for a PNV/ CL screening at 18 wks 6 days. Pt starting to feel flutters. Reports mild soreness in lower abdomen/ pelvic area. No other concerns or issues discussed at this time. MK Oct 01 2020: Reports round ligament pain. Discussed supportive measures. CL 45mm, reviewed. Discussed increased risk for PTL/PTD, reviewed progesterone supplementation in r/b vs. observation. Recommend progesterone over 17 OHP. Pt considering. Continue CL [id number]. PTL precautions reviewed. Sep 18 2020: Maribel is here following US for PNV. States she is feeling really well with no N/V at all. Not sure if she has started to feel FM. No edema noted but does have some c/o pain in feet as if standing on cement all day. No other concerns voiced. Urine neg/neg. LSS Aug 19 2020: 12/5w visit. Desires NIPT - drawn today. Hx of PTD - will plan for transvaginal CL screening weeks 16-24w. COVID/exposure on 08/03. Continue ASA 81 mg. F/u 4w. CM Aug 19 2020: Beginning to feel better after COVID. Able to eat better now and tolerating fluids well. Wants Materni T Plus today. kbm Aug 03 2020: Call Msg from 4:15 PM Sat. Maribel calling @ 10 wks 3 days to report COVID test today is POSITIVE. tested POS on , her initial test same day was negative. She felt worse as the days went by and today was POS. US 07/16 showed viable IUP, + FH. Wondering what to do? Reviewed Sx. NO Temp, Non-productive cough, sore throat, body aches, headache unrelieved w/Tylenol, still has taste and smell Jul 22 2020: TELEHEALTH NOB- Maribel is a 30 yo G 3 P 1 w MARGO 10-27-21 planning a vag del w epidural at [facility] using [facility] for post disch ped care and to breastfeed. She pumped for 6 mo w her first. She states will probably repeat that. 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 They are pleased about the pg although she wishes it would have been later. Maribel whitehead REVIEW OF SYSTEMS: GENERAL - Denies fever, or chills SKIN - Denies rash, new skin lesions, or change in moles EYES - Denies blurred vision, or change in visual acuity EARS - Denies ear pain, or difficulty hearing NOSE - Denies nasal congestion, discharge, or bleeding MOUTH - Denies sore throat, or difficulty swallowing NECK - Denies pain or swelling RESPIRATORY - Denies shortness of breath, cough, wheezing CARDIOVASCULAR - Denies palpitations, chest pain, orthopnea, PND, peripheral edema, syncope or claudication GASTROINTESTINAL - Denies nausea, vomiting, diarrhea, constipation, Denies abdominal pain, melena and or bright red blood GENITOURINARY - Denies dysuria, frequency of urination, urgency, or hesitancy MUSCULOSKELETAL - Denies joint or muscle pain, or back pain NEUROLOGICAL - Denies localized numbness, weakness, or tingling PSYCHIATRIC - Denies depression, anxiety, substance abuse or suicide attempts ENDOCRINE - Denies heat or cold intolerance, weight loss or gain, increasing thirst HEMATO-IMMUNOLOGIC - Denies easy bruising, bleeding, oral ulcerations or recurrent infections GENETICS SCREENING: Age 35+ years: No Thalassemia: No Neural Tube Defect: No Down Syndrome: No JOHANNA-SACHS: No Sickle Cell Disease: No Hemophilia: No Musc. Dystrophy: No Cystic Fibrosis: No-declines screening [place] Chorea: No Mental Retardation: No Fragile X: No Other genetic: No Other defects: No SABs/still births: No Drugs since LMP: Yes INFECTION HISTORY: High risk AIDS: No High risk Hepatitis: No Exposed to TB: No Exposed to Herpes: No Rash/viral illness since LMP: No History of STD: No MENSTRUAL HISTORY: *Menses Amount/Duration: 4-5 daysMenses Regularity: RegularFrequency: monthlyMenarche (Age Onset): 15* PAST SUMMARY: PARITY: 1. Total Pregnancies............ 3 2. Full Term Pregnancies........ 0 3. Premature.................... 1 4. Abortions - Induced.......... 1 5. Abortions - Spontaneous...... 0 6. Ectopics..................... 0 7. Multiple Births.............. 0 8. Living Children.............. 1 PAST #1: Date of :.................. 05/03/13 Gestation Weeks:................ 6 Length of labor(hours):......... 0 Sex:............................ UNKNOWN Weight-lbs:............... 0 Weight-oz:................ 0 Type of Delivery:............... Sab Type of Anesthesia:............. General Place of Delivery:.............. [place]. Treatment of Labor?:.... No Comment: PAST #2: Date of :.................. 08/24/19 Gestation Weeks:................ 36 Length of labor(hours):......... 12 Sex:............................ F Weight-lbs:............... 6 Weight-oz:................ 8 Type of Delivery:............... Vag Type of Anesthesia:............. Epidural Place of Delivery:.............. [place] Treatment of Labor?:.... No Comment: AROM @ 36W. SPINAL GARY PHYSICAL EXAMINATION General Appearence: 31 yo female in no acute distress Vital Signs: AF, VSS Heart: RRR without rubs or gallops Lungs: CTA x 2 Breasts: deferred Abdomen: gravid Pelvis: Cervix: Presentation: cephalic Station: Fetus: Size: AGA Movement: present Heart: present LAB TEST(S) ORDERED SINCE:06/01/20 02/21/2021 TYPE AND SCREEN 02/21/2021 COVID 19 AG RAPID (RN COLLECT) 02/21/2021 CBC W/DIFF, AUTOMATED 02/07/2021 RULE OUT BETA STREP (GRP. B) 01/14/2021 PLATELET COUNT 12/21/2020 URINE CULTURE 12/18/2020 URINALYSIS, COMPLETE 12/18/2020 FIBRONECTIN 12/06/2020 GLUCOSE CHALLENGE GEST 1H 50G 12/06/2020 CBC-COMPLETE BLOOD CNT NO DIFF 08/25/2020 [id number] PLUS CORE 07/18/2020 CULTURE, URINE 07/16/2020 RUBELLA IGG 07/16/2020 T AND S-NO CHARGE W/PNP 07/16/2020 L509.8000 07/16/2020 HIV - [facility] 07/16/2020 HEPATITIS C ANTIBODY 07/16/2020 HEPATITIS B SURFACE ANTIGEN 07/16/2020 CHLAMYDIA/GC GISELA APTIMA 07/16/2020 CBC W/DIFF, AUTOMATED == ==== Order Observation Description Value Ref_Range A* Site == ==== COVID [facility] [place], [place], [address]~ TYPE AND SCRE AB SCREEN GEL NEGATIVE ML CBC W/DIFF, AUT NOTE [place] CBC W/DIFF, AUT WBC 15.1 K/mm3 4.4-11.0 H ML CBC W/DIFF, AUT RBC 3.79 M/mm3 4.2-5.4 L ML CBC W/DIFF, AUT HGB 10.4 g/dL 12.0-15.0 L ML CBC W/DIFF, AUT HCT 32.4 37-47 L ML CBC W/DIFF, AUT MCV 85.5 fL 81-99 ML CBC W/DIFF, AUT MCH 27.4 pg 27.0-32.0 ML CBC W/DIFF, AUT MCHC 32.1 g/dL 32-36 ML CBC W/DIFF, AUT RDW CV 13.2 11.6-14.6 ML CBC W/DIFF, AUT RDW SD 40.5 fl 35.1-43.9 ML CBC W/DIFF, AUT PLT 109 K/mm3 150-450 L ML CBC W/DIFF, AUT MPV 12.7 fl 6.2-12.0 H ML CBC W/DIFF, AUT NEUT% 81.3 47-70 H ML CBC W/DIFF, AUT LY% 12.0 19-41 L ML CBC W/DIFF, AUT MONO% 5.6 0-10 ML CBC W/DIFF, AUT EO% 0.4 0-5 ML CBC W/DIFF, AUT BASO% 0.2 0-1 ML CBC W/DIFF, AUT IG% 0.500 0.0-0.9 ML IG% - Immature Granulocytes (promyelocytes, myelocytes and metamyelocytes) > 1% indicates that a LEFT SHIFT is Present. CBC W/DIFF, AUT ABSOLUTE NEUT 12.3 X10 3/uL 2.0-7.7 H ML CBC W/DIFF, AUT ABSOLUTE LYMPH 1.80 X10 3/uL 0.83-4.51 ML CBC W/DIFF, AUT NUCLEATED RBC 0 0-5 ML RULE OUT BETA S NOTE [place] PLATELET COUNT NOTE [place] PLATELET COUNT PLT 112 K/mm3 150-450 L ML URINE CULTURE NOTE [place] URINALYSIS, COM NOTE [place] URINALYSIS, COM WBC 5-10 SEEN /hpf 0-5 ML URINALYSIS, COM RBC 0 SEEN /hpf 0-5 ML URINALYSIS, COM EPI,SQUAMOUS 5-10 SEEN /hpf 5-10 ML URINALYSIS, COM BACTERIA 1+ /hpf None Seen ML URINALYSIS, COM MUCUS 0 SEEN /hpf <or=2+ ML FIBRONECT NOTE [place] FIBRONECT FFIBRONECTIN Negative ML GLUCOSE CHALLEN NOTE [place] GLUCOSE CHALLEN GLU GEST 50G 1H 76 mg/dL 70-140 ML CBC-COMPLETE BL NOTE [place] CBC-COMPLETE BL WBC 7.6 K/mm3 4.4-11.0 ML CBC-COMPLETE BL RBC 3.81 M/mm3 4.2-5.4 L ML CBC-COMPLETE BL HGB 11.5 g/dL 12.0-15.0 L ML CBC-COMPLETE BL HCT 35.7 37-47 L ML CBC-COMPLETE BL MCV 93.7 fL 81-99 ML CBC-COMPLETE BL MCH 30.2 pg 27.0-32.0 ML CBC-COMPLETE BL MCHC 32.2 g/dL 32-36 ML CBC-COMPLETE BL RDW CV 11.8 11.6-14.6 ML CBC-COMPLETE BL RDW SD 40.1 fl 35.1-43.9 ML CBC-COMPLETE BL PLT 104 K/mm3 150-450 L ML CBC-COMPLETE BL MPV 12.4 fl 6.2-12.0 H ML [id number] PLUS GESTATION Vasquez LC_SEQCA [id number] PLUS FRACTION 12% LC_SEQCA [id number] PLUS GESTATIONAL AGE > OR = 9 Yes LC_SEQCA [id number] PLUS TEST RESULT Negative LC_SEQCA [id number] PLUS GETTER FILLER COMMENTS LC_CARINE This specimen showed an expected representation of chromosome 21, 18 and 13 material. Clinical correlation is suggested. [id number] PLUS APPROVED BY OSMANI Greene MD, PhD, Director, [place] [id number] PLUS TRISOMY 21 (DOWN SYNDROM Negative LC_SEQCA [id number] PLUS TRISOMY 18 (GARZA SYND Negative LC_SEQCA [id number] PLUS TRISOMY 13 (PATAU SYNDRO Negative LC_SEQCA [id number] PLUS SEX LC_SEQCA Consistent with Female [id number] PLUS NEGATIVE PREDICTIVE VALU Note LC_SEQCA The Negative Predictive Value (NPV) for trisomy 21, 18, and 13 is greater than 99%. The NPV for SCA and ESS cannot be calculated as SCA and ESS are only reported when an abnormality is detected. [id number] PLUS POSITIVE PREDICTIVE VALU N/A LC_SEQCA [id number] PLUS ABOUT THE TEST LC_SEQCA The MaterniT(R) 21 PLUS laboratory-developed test (LDT) analyzes circulating cell-free DNA from a maternal blood sample. The test is indicated for use in women with increased risk for chromosomal aneuploidy. Validation data on twin pregnancies is limited and the ability of this test to detect aneuploidy in a triplet has not yet been validated. [id number] PLUS TEST METHOD LC_SEQCA Circulating cell-free DNA was purified from the plasma component of maternal blood. The extracted DNA was then converted into a genomic DNA library for aneuploidy analysis of chromosomes 21, 18, and 13 via next generation sequencing.[1] Optional findings based on the test order include sex chromosome aneuploidy (SCA)[2], and enhanced sequencing series (ESS)[3], which will only be reported on as an additional finding when an abnormality is detected. SCA testing includes information on X and Y representation, while ESS testing includes deletions in selected regions (22q, 15q, 11q, 8q, 5p, 4p, 1p) and trisomy of chromosomes 16 and 22. [id number] PLUS PERFORMANCE LC_SEQCA The performance characteristics of the MaterniT(R) 21 PLUS laboratory-developed test (LDT) have been determined in a clinical validation study with women at increased risk for chromosomal aneuploidy.[1],[2],[3],[4] [id number] PLUS PERFORMANCE CHARACTERIST Note LC_SEQCA ! Y-Chromosome ( Sex) ! Accuracy: 99.4% ! ! ! ! Region (associated syndrome) ! Est. Sens# ! Est. Spec ! ! ! ! Trisomy 21 (Down Syndrome) ! 99.1% ! 99.9% ! ! ! ! Trisomy 18 (Garza Syndrome) ! >99.9% ! 99.6% ! ! ! ! Trisomy 13 (Patau Syndrome) ! 91.7% ! 99.7% ! ! ! ! Sex Chromosome Aneuploidies## ! 96.2% ! 99.7% ! ! ! * As reported in [facility] database [id number] [http://dbsearch.clinicalPolyThericsome.org/search/ ] # Estimated Sensitivity. Sensitivity estimated across the observed size distribution of each syndrome [per [facility] database nstd37] and across the range of fractions observed in routine clinical NIPT. Actual sensitivity can also be influenced by other factors such as the size of the event, total sequence counts, amplification bias, or sequence bias. ## Vasquez gestation only. [id number] PLUS LIMITATIONS OF THE TEST LC_SEQCA While the results of these tests are highly accurate, discordant results, including inaccurate sex prediction, may occur due to placental, maternal, or mosaicism or neoplasm; vanishing twin; prior maternal organ transplant; or other causes. Sex chromosomal aneuploidies are not reportable for known multiple gestations. These tests are screening tests and not diagnostic; they do not replace the accuracy and precision of diagnosis with CVS or amniocentesis. A patient with a positive test result should be referred for genetic counseling and offered invasive diagnosis for confirmation of test results.[5] A negative result does not ensure an unaffected nor does it exclude the possibility of other chromosomal abnormalities or defects which are not a part of these tests. An uninformative result may be reported, the causes of which may include, but are not limited to, insufficient sequencing coverage, noise or artifacts in the region, amplification or sequencing bias, or insufficient fraction. These tests are not intended to identify pregnancies at risk for neural tube defects or ventral wall defects. Testing for whole chromosome abnormalities (including sex chromosomes) and for subchromosomal abnormalities could lead to the potential discovery of both and maternal genomic abnormalities that could have major, minor, or no, clinical significance. Evaluating the significance of a positive or a non-reportable result may involve both invasive testing and additional studies on the mother. Such investigations may lead to a diagnosis of maternal chromosomal or subchromosomal abnormalities, which on occasion may be associated with benign or malignant maternal neoplasms. These tests may not accurately identify triploidy, balanced rearrangements, or the precise location of subchromosomal duplications or deletions; these may be detected by diagnosis with CVS or amniocentesis. The ability to report results may be impacted by maternal BMI, maternal weight, maternal systemic lupus erythematosus (SLE) and/or by certain pharmaceutical agents such as low molecular weight heparin (for example: Lovenox(R), Xaparin(R), Clexane(R) and Fragmin(R)). The results of this testing, including the benefits and limitations, should be discussed with a qualified healthcare provider. management decisions, including termination of the , should not be based on the results of these tests alone. The healthcare provider is responsible for the use of this information in the management of their patient. [id number] PLUS NOTE LC_SEQCA This test was developed and its performance characteristics determined by [facility]. It has not been cleared or approved by the Food and Drug Administration. This laboratory is certified under the Clinical Laboratory Improvement Amendments (CLIA) as qualified to perform high complexity clinical laboratory testing and accredited by the [employer] (CAP). If there is future clinical need for adding MaterniT GENOME testing, this specimen will be available until term. [facility] samples will not be retained beyond 60 days. [facility] patients will have to send a new sample for re-sequencing ([facility] Test Code: 659762). [id number] PLUS REFERENCES LC_SEQCA 1. Lani LAU, et al. Connie Med. 2012;14(3):296-305. 2. Supriya HO et al. Prenat Diag. 2013;33(6):591-597. 3. Reinier C, et al. Clin Chem. 2015 Apr;61(4):608-616. 4. Lani LAU, et al. Connie Med. 2011;13(11):913-920. 5. ACOG/SMFM Joint Committee Opinion No. 545, Apr 2012. [id number] PLUS PDF . LC_SEQCA [facility]~[address] [place], [address]~ T AND AB SCREEN GEL NEGATIVE ML HEPATITIS B JESUS NOTE [place] HEPATITIS B JESUS HEP B SURF AG Non-Reactive Nonreactive ML HEPATITIS C ANT NOTE [place] HEPATITIS C ANT HEPATITIS C AB Non-Reactive Nonreactive ML Non Reactive: < 0.8 Equivocal: >/= 0.8 to < 1.0 Reactive: >/= 1.0 The CDC recommends that a reactive/equivocal HCV antibody result be followed up by the HCV Nucleic Acid Amplification test (892072) HIV - [facility] NOTE [place] HIV - [facility] HIV Non-Reactive Nonreactive ML L509.8000 NOTE [place]OU[place] L509.8000 SYPHILIS ABS Non-reactive ML RUBELLA IGG NOTE [place] RUBELLA IGG RUBELLA IGG Reactive Nonreactive ML Antibody Results Interpretation of Immune Status Non Reactive Presumed Non-Immune Equivocal Equivocal Reactive Presumed Immune CBC W/DIFF, AUT NOTE [place] CBC W/DIFF, AUT WBC 7.4 K/mm3 4.4-11.0 ML CBC W/DIFF, AUT RBC 4.42 M/mm3 4.2-5.4 ML CBC W/DIFF, AUT HGB 13.7 g/dL 12.0-15.0 ML CBC W/DIFF, AUT HCT 41.7 37-47 ML CBC W/DIFF, AUT MCV 94.3 fL 81-99 ML CBC W/DIFF, AUT MCH 31.0 pg 27.0-32.0 ML CBC W/DIFF, AUT MCHC 32.9 g/dL 32-36 ML CBC W/DIFF, AUT RDW CV 11.6 11.6-14.6 ML CBC W/DIFF, AUT RDW SD 39.9 fl 35.1-43.9 ML CBC W/DIFF, AUT PLT 135 K/mm3 150-450 L ML CBC W/DIFF, AUT MPV 13.3 fl 6.2-12.0 H ML CBC W/DIFF, AUT NEUT% 72.5 47-70 H ML CBC W/DIFF, AUT LY% 19.1 19-41 ML CBC W/DIFF, AUT MONO% 7.0 0-10 ML CBC W/DIFF, AUT EO% 0.7 0-5 ML CBC W/DIFF, AUT BASO% 0.4 0-1 ML CBC W/DIFF, AUT IG% 0.300 0.0-0.9 ML IG% - Immature Granulocytes (promyelocytes, myelocytes and metamyelocytes) > 1% indicates that a LEFT SHIFT is Present. CBC W/DIFF, AUT ABSOLUTE NEUT 5.4 X10 3/uL 2.0-7.7 ML CBC W/DIFF, AUT ABSOLUTE LYMPH 1.42 X10 3/uL 0.83-4.51 ML CBC W/DIFF, AUT NUCLEATED RBC 0 0-5 ML CULTURE, URINE NOTE [place] CHLAMYDIA/GC NA NOTE [place] CHLAMYDIA/GC NA CHLAMY,NUC ACID Negative Negative [facility] CHLAMYDIA/GC NA GC BY NUC ACID Negative Negative [facility]CI Performed at: = - [facility], [place] [id number] Connection Worker: Aparna Guadalupe MD, Phone: [phone] *Negative results from patients with symptom onset beyond five days should be treated as presumptive and confirmed by a molecular assay if clinically necessary. Negative results should not be used as the sole basis for treatment or for patient management. COVID 19 AG RAPID (RN COLLECT) *Positive results do not differentiate between SARS-CoV and SARS-CoV-2. If differentation of the specific SARS virus is desired an additional sample and an additional order is required. COVID 19 AG RAPID (RN COLLECT) * This test has not been FDA cleared or approved; the test has been authorized by FDA under an Emergency Use Authorization (EAU) for use by laboratories certified under CLIA that meet the requirements to perform moderate, high, or waived complexity tests. COVID 19 AG RAPID (RN COLLECT) Normal Reference Range: Negative SARS-CoV-2 (COVID 19) Negative RAPID METHOD [facility] COVID19 Ag Card, lateral flow A POSITIVE Group B Beta Streptococcus is not isolated. Below infection level. Mixed Contaminants [place] Count 1000-10,000 A POSITIVE Urine Culture Below infection level. ORGANISM 1: Mixed Gram Positive Organisms [place] Count 1000-10,000 == ==== Impression /Plan: 39 wks + 3 days intrauterine . Preparations in progress for delivery.
--- NOTE | 2021-02-22 02:01 | EX.PCM.OBRPT ---
Maternal Data Information MARGO Calculator Estimated Delivery Date Method Current WG Current Estimate 02/26/21 LMP (Certain) 39w 3d Other Estimates 02/26/21 Manual 39w 3d Vaginal Delivery Maternal Presentation Maternal Presentation: Elective Induction Type of Induction: Pitocin Operative Information Date of Procedure: 02/22/21 Pre-Operative Diagnosis: IUP Post-Operative Diagnosis: IUP Surgery / Procedure Performed: Spontaneous Vaginal Delivery Type of Anesthesia: Epidural Drain: Arboleda to straight drain Estimated Blood Loss: 250 cc Findings Description of Procedure: Spontaneous vaginal delivery of a viable female infant with Apgars of 8/9 from an occiput anterior presentation with clear amniotic fluid and normal three-vessel placenta. No episiotomy or lacerations. Sponges okay. Delivery physician: Ari Del Cid MD. Presentation: Vertex Amniotic Membrane Rupture Type: Spontaneous Amniotic Fluid Description: Clear Placental Delivery Description: Spontaneous Placenta Disposition: [facility] Cord Vessel Description: 3 Vessels Cord Entanglement: None Cord Gases: ABG and VBG Infant A Gender: Female (1 minute): 8 (5 minute): 9 Post Vaginal Delivery Medications Given After Delivery: IV Pitocin Episiotomy Description: None Laceration: None Complication Complications: None
--- NOTE | 2021-02-22 02:04 | PCM.DC ---
Discharge Instructions Diet Discharge Diet: No restrictions Activity Discharge Activity: May Drive (In 1 to 2 days if not taking narcotic pain medication), May Shower and May Take a Tub Bath May resume sexual activity in: 4-6 weeks Additional Activity Instructions:: Nothing in the vagina for 4-6 weeks. You may return to work/school in 6 weeks. Dressing / Incision Call your doctor if you observe: Fever of 101 or Higher, Inability to urinate, Inability to have a bowel movement and Using more than 1 pad per hour Follow Up Care Please Follow Up With: Carlee Anna MD When: Call [phone] to make an appointment with your doctor in 6 weeks. Test Results: Test results from this visit will be discussed in further detail at your follow-up appointment, if applicable. Discharge Plan Admission Admit Date/Time: 02/21/21 14:42 Primary Reason for Your Visit: Vaginal Delivery Attending Provider: Ari Del Cid Primary Care Provider: Care Physician,Anusha Primary Discharge Orders/Prescriptions Prescriptions: No Action vit,[id number] 1 TABLET tablet 1 tab PO DAILY RF: 0 Referrals / Follow Up: Care Physician,No Primary [Primary Care Provider] - Disposition Disposition (needs filled in before D/C Order can be placed): Home, Self Care
[2021-02-22] MEDS: Ibuprofen 600 MG Tablet PO ×3 (03:09→21:38)
[2021-02-22] MEDS: Acetaminophen 500 MG Tablet 1000 MG PO ×3 (05:52→18:55)
--- NOTE | 2021-02-22 10:26 | PN.OBGYN_ITS ---
Subjective Subjective Patient without complaints and doing well. Minimal vaginal bleeding. Plans to go home tomorrow. Objective Data Objective Data Vital Signs: Vital Signs Temp Pulse Resp BP Pulse Ox 98.4 F 76 12 92/52 L 98 02/22/21 07:48 02/22/21 07:48 02/22/21 07:48 02/22/21 07:48 02/22/21 01:54 Oxygen Delivery Method Room Air Weight: 145 lb 6 oz Body Mass Index (BMI) 22.4 Intake & Output: Intake and Output for Last 24 Hours 02/20/21 02/21/21 02/22/21 23:59 23:59 23:59 Intake Total 1807.64 / 1807.64 1028.97 / 1028.97 Output Total 400 / 400 2675 / 2675 Balance 1407.64 / 1407.64 -1646.03 / -1646.03 Lab / Micro Data Result Diagrams: 02/21/21 16:00 Labs: Laboratory Results - last 24 hr 02/21/21 16:00: WBC 15.1 H, RBC 3.79 L, Hgb 10.4 L, Hct 32.4 L, MCV 85.5, MCH 27.4, MCHC 32.1, RDW Std Deviation 40.5, RDW Coeff of Johanna 13.2, Plt Count 109 L, MPV 12.7 H, Immature Gran % (Auto) 0.500, Neut % (Auto) 81.3 H, Lymph % (Auto) 12.0 L, [place] % (Auto) 5.6, Eos % (Auto) 0.4, Baso % (Auto) 0.2, Absolute Neuts (auto) 12.3 H, Absolute Lymphs (auto) 1.80, Nucleated RBC % 0 02/21/21 16:00: Blood Type A POSITIVE, Antibody Screen NEGATIVE Micro: Microbiology 02/21/21 19:15 Nasal Secretion SARS-CoV-2 Antigen (Rapid) - Final
[2021-02-22] MEDS: Senna/Docusate Sodium 1 Tablet PO (21:06)
[2021-02-23 00:19] VITALS: BP 89/44; PULSE 61; RESP 16; TEMP 36.3; O2SAT 100
[2021-02-23 04:35] VITALS: BP 92/57; PULSE 96; RESP 16; TEMP 36.6; O2SAT 96
[2021-02-23] MEDS: Acetaminophen 500 MG Tablet 1000 MG PO ×2 (04:40→11:08)
[2021-02-23 09:19] VITALS: BP 94/62; PULSE 91; RESP 16; TEMP 37.2; O2SAT 96
[2021-02-23] MEDS: Ibuprofen 600 MG Tablet PO (09:24)
[2021-02-23] MEDS: Senna/Docusate Sodium 1 Tablet PO (09:24)
--- NOTE | 2021-02-23 09:43 | PCM.PN.OB ---
Subjective Subjective Patient without complaints. Minimal vaginal bleeding reported. Ready to go home. Will release to home with routine instructions. Objective Data Objective Data Vital Signs: Vital Signs Temp Pulse Resp BP Pulse Ox 98.9 F 91 16 94/62 96 02/23/21 09:19 02/23/21 09:19 02/23/21 09:19 02/23/21 09:19 02/23/21 09:19 Oxygen Delivery Method Room Air Weight: 145 lb 6 oz Body Mass Index (BMI) 22.4 Intake & Output: Intake and Output for Last 24 Hours 02/21/21 02/22/21 02/23/21 23:59 23:59 23:59 Intake Total 1807.64 / 1807.64 1028.97 / 1028.97 Output Total 400 / 400 2675 / 2675 Balance 1407.64 / 1407.64 -1646.03 / -1646.03 Lab / Micro Data Result Diagrams: 02/21/21 16:00 Micro: Microbiology 02/21/21 19:15 Nasal Secretion SARS-CoV-2 Antigen (Rapid) - Final
== END 2021-02-23 11:15 | disposition home or self-care (01) | DRG 807 ==
PROVIDERS: Admitting Provider Obstetrics & Gynecology; Visit Provider Obstetrics & Gynecology
DX: O99.12 Other diseases of the blood and blood-forming organs and certain disorders involving the immune mechanism complicating childbirth (principal); Z37.0 Single live birth; O36.8130 Decreased fetal movements, third trimester, not applicable or unspecified; Z3A.39 39 weeks gestation of pregnancy; D69.6 Thrombocytopenia, unspecified; Z86.16 Personal history of COVID-19
CPT/HCPCS: 59025; 59050; 85025; 86850; 86900; 86901; 87426; 99218; J7120; G0378

== ENCOUNTER → 2024-06-09 | Outpatient (CLI) | payer OTHER, SELFPAY ==
[2024-06-09 12:21] LABS: Absolute Lymphocyte Count 1.15 X10^3/uL (0.83-4.51); Absolute Neutrophil Count 4.6 X10^3/uL (2.0-7.7); Basophil# 0.03 X10^3/uL; Basophil% 0.5 % (0-1); Eosinophil# 0.04 X10^3/uL; Eosinophils% 0.6 % (0-5); Hematocrit 43.3 % (37-47); Hemoglobin 14.6 g/dL (12.0-15.0); Lymphocyte # 1.15 X10^3/ul (0.83-4.51); Lymphocyte % 18.5 % (19-41); Mean Corp Hgb Conc 33.7 g/dL (32-36); Mean Corpuscular Hgb 30.9 pg (27.0-32.0); Mean Corpuscular Volume 91.7 fL (81-99); Mean Platelet Vol. 12.4 fl (6.2-12.0); Monocyte# 0.42 X10^3/uL; Monocyte% 6.7 % (0-10); NRBC Flagged by Analyzer 0 % (0-5); Neutrophil # 4.57 X10^3/uL (2.7-7.7); Neutrophil % 73.4 % (47-70); Platelet Count 115 K/mm3 (150-450); RBC Distribution Width CV 11.9 % (11.6-14.6); RBC Distribution Width SD 40.2 fl (35.1-43.9); Red Blood Count 4.72 M/mm3 (4.2-5.4); White Blood Count 6.2 K/mm3 (4.4-11.0)
[2024-06-09 12:58] LABS: HIV - WCH Non-Reactive (Nonreactive); Hepatitis B Surface Antigen Non-Reactive (Nonreactive); Hepatitis C Antibody Non-Reactive (Nonreactive); Rubella IgG Reactive (Nonreactive); Syphilis Antibodies Non-reactive
[2024-06-14 08:50] LABS: Chlamydia By Nucleic Acid AMP Negative; Gonococcus By Nucleic Acid AMP Negative
== END | disposition home or self-care (01) ==
PROVIDERS: Referring Provider Obstetrics & Gynecology; Visit Provider Obstetrics & Gynecology
DX: O09.90 Supervision of high risk pregnancy, unspecified, unspecified trimester (principal); Z3A.00 Weeks of gestation of pregnancy not specified
CPT/HCPCS: 36415; 85025; 86703; 86762; 86780; 86803; 86850; 86900; 86901; 87086; 87340; 87491; 87591; 87624; 88175; G0145

== ENCOUNTER → 2024-06-13 | Outpatient (CLI) | payer OTHER, SELFPAY | END | disposition home or self-care (01) | LOC: BWCLAB 13:16 | PROVIDERS: Referring Provider Obstetrics & Gynecology; Visit Provider Obstetrics & Gynecology | DX: Z34.81 Encounter for supervision of other normal pregnancy, first trimester (principal) ==

== ENCOUNTER → 2024-10-02 | Outpatient (CLI) | payer OTHER, SELFPAY ==
[2024-10-02 15:04] LABS: Absolute Lymphocyte Count 1.49 X10^3/uL (0.83-4.51); Absolute Neutrophil Count 7.9 X10^3/uL (2.0-7.7); Basophil# 0.03 X10^3/uL; Basophil% 0.3 % (0-1); Eosinophil# 0.08 X10^3/uL; Eosinophils% 0.8 % (0-5); Hematocrit 36.7 % (37-47); Hemoglobin 12.4 g/dL (12.0-15.0); Lymphocyte # 1.49 X10^3/ul (0.83-4.51); Lymphocyte % 14.8 % (19-41); Mean Corp Hgb Conc 33.8 g/dL (32-36); Mean Corpuscular Hgb 31.1 pg (27.0-32.0); Mean Platelet Vol. 12.5 fl (6.2-12.0); Monocyte# 0.51 X10^3/uL; Monocyte% 5.1 % (0-10); NRBC Flagged by Analyzer 0 % (0-5); Neutrophil # 7.87 X10^3/uL (2.7-7.7); Neutrophil % 78.1 % (47-70); Platelet Count 103 K/mm3 (150-450); RBC Distribution Width CV 12.3 % (11.6-14.6); RBC Distribution Width SD 41.4 fl (35.1-43.9); Red Blood Count 3.99 M/mm3 (4.2-5.4); White Blood Count 10.1 K/mm3 (4.4-11.0)
[2024-10-02 15:56] LABS: Glucose Challenge Gest 1H 50g 110 mg/dL (70-140); HIV Nonreactive (Nonreactive); Syphilis Antibodies Nonreactive (Nonreactive)
== END | disposition home or self-care (01) ==
LOC: LAB 13:55
PROVIDERS: Advanced Practice Midwife; Referring Provider Obstetrics & Gynecology; Visit Provider Obstetrics & Gynecology
DX: O09.92 Supervision of high risk pregnancy, unspecified, second trimester (principal); Z3A.00 Weeks of gestation of pregnancy not specified; Z13.1 Encounter for screening for diabetes mellitus
CPT/HCPCS: 36415; 82950; 85025; 86703; 86780; 86850; 86900; 86901

== ENCOUNTER → 2024-10-04 | Outpatient (CLI) | payer OTHER, SELFPAY | END | disposition home or self-care (01) | LOC: LABSPEC 11:47 | PROVIDERS: Referring Provider Nurse Practitioner Women's Health; Visit Provider Nurse Practitioner Women's Health | DX: O26.899 Other specified pregnancy related conditions, unspecified trimester (principal); R10.2 Pelvic and perineal pain; Z3A.00 Weeks of gestation of pregnancy not specified | CPT/HCPCS: 87086 ==

== ENCOUNTER 2024-11-21 07:55 | Outpatient (CLI) | payer OTHER, SELFPAY ==
[2024-11-21 08:32] VITALS: BMI 21.6
[2024-11-21 08:39] VITALS: PULSE 91; RESP 16; TEMP 36.5; O2SAT 95
[2024-11-21 08:40] VITALS: BP 99/64; PULSE 91
[2024-11-21 08:52] LABS: Hematocrit 37.3 % (37-47); Hemoglobin 12.7 g/dL (12.0-15.0); Immature Granulocytes Count 0.060 X10^3/uL (0.0-0.0); Mean Corp Hgb Conc 34.0 g/dL (32-36); Mean Corpuscular Volume 90.1 fL (81-99); Mean Platelet Vol. 12.4 fl (6.2-12.0); NRBC Flagged by Analyzer 0 % (0-5); Platelet Count 108 K/mm3 (150-450); RBC Distribution Width CV 12.4 % (11.6-14.6); RBC Distribution Width SD 40.7 fl (35.1-43.9); Red Blood Count 4.14 M/mm3 (4.2-5.4); White Blood Count 11.2 K/mm3 (4.4-11.0)
[2024-11-21 09:09] LABS: Partial Thromboplast Time 23.7 Seconds (24.1-36.2); Prothrombin Time (Protime)PT. 12.4 SECONDS (11.7-14.9)
[2024-11-21 09:20] LABS: Color, Urine Yellow (Yellow); Glucose, Dipstick Normal (Normal); Ketone-Dipstick Negative (Negative); Leukocyte Esterase-Dipstick 500 /ul (Negative); Nitrite-Dipstick Negative (Negative); Occult Blood-Urine 10 /ul (Negative); Protein-Dipstick 15 mg/dl (Negative); Specific Gravity, Urine 1.015 (1.002-1.030); Urine Bilirubin Dipstick Negative (Negative)
[2024-11-21 09:31] LABS: Fibrinogen 425 mg/dl (203-444)
--- NOTE | 2024-11-21 09:52 | OB.TRI.PN ---
Progress Notes Date of Service: 11/21/24 Progress Note: Patient presents for triage evaluation secondary to vaginal bleeding pregnacy FHT: 140 Moderate variability reactive no decelerations category I tracing [place]: occasional Contractions Assessment and plan: threatened labor no cervical change Reactive NST, reassuring maternal and status patient discharged to home to follow-up as schedule no cervical change ua and culture sent. See problem list details for additional plan information. Laboratory Studies: Laboratory Tests 11/21/24 Range/Units 08:33 WBC 11.2 H (4.4-11.0) K/mm3 RBC 4.14 L (4.2-5.4) M/mm3 Hgb 12.7 (12.0-15.0) g/dL Hct 37.3 (37-47) % MCV 90.1 (81-99) fL MCH 30.7 (27.0-32.0) pg MCHC 34.0 (32-36) g/dL RDW Std Deviation 40.7 (35.1-43.9) fl RDW Coeff of Johanna 12.4 (11.6-14.6) % Plt Count 108 L (150-450) K/mm3 MPV 12.4 H (6.2-12.0) fl Immature Gran % (Auto) 0.500 (0.0-0.9) % Neut % (Auto) 77.0 H (47-70) % Lymph % (Auto) 15.4 L (19-41) % [place] % (Auto) 6.0 (0-10) % Eos % (Auto) 0.8 (0-5) % Baso % (Auto) 0.3 (0-1) % Absolute Neuts (auto) 8.7 H (2.0-7.7) X10^3/uL Absolute Lymphs (auto) 1.73 (0.83-4.51) X10^3/uL Nucleated RBC % 0 (0-5) % PT 12.4 (11.7-14.9) SECONDS INR 0.9 APTT 23.7 L (24.1-36.2) Seconds Fibrinogen 425 (203-444) mg/dl Urine Color Yellow (Yellow) Urine Clarity Sl. Cloudy (Clear) Urine pH 8.0 (5.0 - 8.0) Ur Specific [place] 1.015 (1.002-1.030) Urine Protein 15 H (Negative) mg/dl Urine Glucose (UA) Normal (Normal) mg/dl Urine Ketones Negative (Negative) mg/dl Urine Occult Blood 10 H (Negative) /ul Urine Nitrite Negative (Negative) Urine Bilirubin Negative (Negative) mg/dL Urine Urobilinogen Normal (Normal) mg/dl Ur Leukocyte Esterase 500 H (Negative) /ul Blood Type A POSITIVE Antibody Screen NEGATIVE Charges/Coding Procedures Urinary/Genital [id number]: [id number] non-stress test Interp
== END 2024-11-21 11:40 | disposition home or self-care (01) ==
LOC: WPOUT 08:08 → WP 08:08
PROVIDERS: Referring Provider Obstetrics & Gynecology; Visit Provider Obstetrics & Gynecology
DX: O46.90 Antepartum hemorrhage, unspecified, unspecified trimester (principal); Z3A.00 Weeks of gestation of pregnancy not specified
CPT/HCPCS: 36415; 59025; 59050; 81002; 85025; 85384; 85610; 85730; 86850; 86900; 86901; 87086; 87088; 99221; G0378

== ENCOUNTER → 2024-11-23 | Outpatient (CLI) | payer OTHER, SELFPAY ==
--- NOTE | 2024-11-23 17:09 | US_ITS ---
PROCEDURE: OB LIMITED WITH BIOMETRICS 11/23/2024 REASON FOR EXAM: GROWTH TECHNIQUE: OB LIMITED WITH BIOMETRICS COMPARISON: None FINDINGS Number: 1 Position: Vertex Placental Position: Anterior and not low-lying Placental Abnormalities: No evidence of previa. DIMENSIONS: Biparietal Diameter: 8.3 cm: 33 weeks and 3 days: 29 percentile/ Head Circumference: 32.78 cm: 37 weeks and 2 days: 89 percentile/ Abdominal Circumference: 28.76 cm: 32 weeks and 5 days: 20 percentile/ Femur Length: 6.74 cm: 34 weeks and 5 days: 58 percentile./ ESTIMATED WEIGHT: 2220 g plus/-332 g ESTIMATED WEIGHT PERCENTILE (24+ weeks): 31 ESTIMATED GESTATIONAL AGE: Baseline: 34 weeks and 0 days By Ultrasound: 34 weeks and 6 days ESTIMATED DATE OF DELIVERY: Baseline: January 04, 2025 By Ultrasound: December 29, 2024 BIOPHYSICAL ASSESSMENT: Amniotic Fluid Volume: 3.1 cm Amniotic Fluid Index: 10.2 (8-24 cm normal range) Cardiac Motion: 141 beats per minute (average) Trunk and Limb Motion: Present. MATERNAL ANATOMY: Adnexa: Neither maternal ovary is successfully identified. Cervical Length (if measured): 3.9 cm US/OB Limited With Biometrics IMPRESSION: Single live intrauterine gestation with a mean gestational age of 34 weeks and 6 days. Reading Location: [id number]
--- OUTSIDE RECORDS SUMMARY | 2024-11-23 23:10 | XMS RPT_ITS | CCD ---
Author Organization [facility] Providers Care Electromechanic Name Role Phone No Doctor Assigned, Nodr Unavailable Unavail able Karohl, Jessica Unavailable Unavailable Karohl, Jessica Unavailable Unavailable Marques, PA-C Unavailable Unavailable Marques, PA-C Unavailable Unavailable No Doctor Assigned, Nodr Unavailable Unavail able GARDENIA MCDERMOTT Attending Unavailab celena CARCAMO, PHYSICIAN Primary Care Unavailable Tamika Sandhu Unavailable Unavailable Unavailable Tamika Sandhu Attending Tamika Martinez Primary Care Pk Sandhu, Tamika Levine Referring Pk Sandhu, Tamika Levine Attending Tamika Martinez Primary Care Pk Sandhu, Tamika Levine Referring Pk Laraarjoanna, Tamika Levine Attending Tamika Martinez Primary Care Pk Sandhu, Tamika Levine Referring Tamika Martinez MD Primary Care Provider Tamika Sandhu MD Unavailable TAMIKA SANDHU Primary Care Unavailab MELISSA Zaragoza Attending Unavailable Tamika Sandhu MD Primary Care Provider TAMIKA SANDHU Attending Unavailab TAMIKA Gunn Referring Unavailab le TAMIKA SANDHU Primary Care Unavailab TAMIKA Gunn Attending Unavailab TAMIKA Gunn Referring Unavailab TAMIKA Gunn Primary Care Unavailab TAMIKA Gunn Attending Unavailab TAMIKA Gunn Primary Care Unavailab le NO PRIMARY CAREMD Primary Care Unavailable AMARA GALLEGOS Attending Unavailable ROSALBA HOSKINS Referring Unavailab le NO PRIMARY CAREMD Primary Care Unavailable ROSALBA HOSKINS Referring Unavailab TAMIKA Kellogg Attending Unavailable Care Physician, No Primary Primary Care Provider Unavailable Care Physician, No Primary Referring Provider Un available Deborah ALCARAZ, Dr. Lennon Attending Provider Dr. Citlalli Cabrera MD Referring Provider Dr. Rosalba Yang DO Attending Provider [place] ACCOUNTING MANAGER-C, Kamla Attending Provider [phone] Kecia Faye CNM Attending Provider [phone] Marce ACCOUNTING MANAGER-C, Kamla Referring Provider Care Physician, No Primary Primary Care Provider Unavailable Care Physician, No Primary Referring Provider Un available Deborah ALCARAZ, Dr. Lennon Attending Provider Dr. Citlalli Cabrera MD Referring Provider [phone] Kecia Faye CNM Referring Provider [phone] Dr. Samm Colbert MD Attending Provider [phone] Samm Colbert MD Referring Provider [phone] Care Physician, No Primary Primary Care Provider Unavailable Care Physician, No Primary Referring Provider Un available Marce ACCOUNTING MANAGERKamla Attending Unavailable Care Physician, No Primary Primary Care Unava ilable Marce ACCOUNTING MANAGER, Kamla Referring Unavailable Care Physician, No Primary Primary Care Unava ilable Citlalli Cabrera Attending Unavailable Citlalli Cabrera Referring Unavailable Care Physician, No Primary Referring Unava ilable Care Physician, No Primary Primary Care Unava ilable Citlalli Cabrera Attending Unavailable Marce ACCOUNTING MANAGER, Kamla Attending Unavailable Care Physician, No Primary Primary Care Unava ilable Care Physician, No Primary Referring Unava ilable Care Physician, No Primary Primary Care Unava ilable Care Physician, No Primary Referring Unava ilable Citlalli Cabrera Attending Unavailable Care Physician, No Primary Primary Care Unava ilable Care Physician, No Primary Referring Unava ilable Deborah Citlalli Attending Unavailable Care Physician, No Primary Primary Care Unava ilable Care Physician, No Primary Referring Unava ilable Marce ACCOUNTING MANAGER, Kamla Attending Unavailable Care Physician, No Primary Primary Care Unava ilable Care Physician, No Primary Referring Unava ilable [place] ACCOUNTING MANAGER, Kamla Attending Unavailable Care Physician, No Primary Primary Care Unava ilable Care Physician, No Primary Referring Unava ilable Kecia Faye Attending Unavailable Rosalba Yang Attending Unavailabl e Care Physician, No Primary Primary Care Unava ilable Care Physician, No Primary Referring Unava ilable Care Physician, No Primary Primary Care Unava ilable Prah, Samm Attending Unavailable Kecia Faye Referring Unavailable Care Physician, No Primary Primary Care Unava ilable Care Physician, No Primary Referring Unava ilable Marcanthony, Citlalli Attending Unavailable Care Physician, No Primary Primary Care Unava ilable Marcanthony, Citlalli Attending Unavailable Marcanthony, Citlalli Consulting Unavailable Marcanthony, Citlalli Referring Unavailable Care Physician, No Primary Primary Care Unava ilable Prah, Samm Referring Unavailable Pracharley, Samm Attending Unavailable Care Physician, No Primary Primary Care Unava ilable Marcanthony, Citlalli Referring Unavailable Marcanthony, Citlalli Attending Unavailable Care Physician, No Primary Primary Care Unava ilable Marcanthony, Citlalli Attending Unavailable Marcanthony, Citlalli Referring Unavailable Care Physician, No Primary Primary Care Unava ilable Marcanthony, Citlalli Attending Unavailable Marcanthony, Citlalli Referring Unavailable Karthikeyananthony , Dr. Lennon Other Provider [phone] Medications Current Medications Medication Drug Class(es) Dates Sig (Normalized) Sig (Original) amoxicillin 875 mg / clavulanate 125 mg oral tablet (1 source) Penicillin-class Antibacterial Start: 06-18-2023 End: 06-28-2023 take 1 tablet by mouth twice daily amoxicillin-pot clavulanate (Augmentin) 875-125 mg tablet Indications: Acute sinusitis, recurrence not specified, unspecified location Take 1 tablet (875 mg) by mouth 2 times a day for 10 days. 20 tablet 0 06/18/2023 06/28/2023 Active azelaic acid 0.15 mg/mg topical gel (6 sources) Start: 10-15-2021 End: 03-28-2024 azelaic acid (Finacea) 15 % gel APPLY A THIN LAYER TO THE FACE EVERY MORNING. 10/15/2021 03/28/2024 Discontinued (Therapy completed) cephalexin 500 mg oral capsule (1 source) Cephalosporin Antibacterial Start: 11-21-2024 take 1 capsule by mouth every six hours Cephalexin 500 mg capsule Active 500 mg PO EVERY 6 HOURS 28 7 0 November 21, 2024 12:00am lisdexamfetamine dimesylate 40 mg oral capsule (9 sources) Central Nervous System Stimulant Start: 03-09-2024 End: 04-08-2024 take 1 capsule by mouth once daily in the morning lisdexamfetamine (Vyvanse) 40 mg capsule Indications: Attention deficit disorder, unspecified type Take 1 capsule (40 mg) by mouth once daily in the morning. 30 capsule 03/09/2024 04/08/2024 Active Start: 12-10-2023 End: 01-09-2024 take 1 capsule by mouth once daily in the morning lisdexamfetamine (Vyvanse) 40 mg capsule Indications: Attention deficit disorder, unspecified hyperactivity presence Take 1 capsule (40 mg) by mouth once daily in the morning. 30 capsule 12/10/2023 01/09/2024 Active Start: 06-14-2023 End: 07-14-2023 take 1 capsule by mouth once daily in the morning lisdexamfetamine (Vyvanse) 40 mg capsule Indications: Attention deficit disorder, unspecified hyperactivity presence Take 1 capsule (40 mg) by mouth once daily in the morning. 30 capsule 0 06/14/2023 07/14/2023 Active Start: 04-12-2023 End: 05-12-2023 take 1 capsule by mouth once daily in the morning lisdexamfetamine (Vyvanse) 40 mg capsule Indications: Attention deficit disorder, unspecified hyperactivity presence Take 1 capsule (40 mg) by mouth once daily in the morning. 30 capsule 0 04/12/2023 05/12/2023 Active Start: 11-30-2022 End: 12-30-2022 take 1 capsule by mouth once daily in the morning lisdexamfetamine (Vyvanse) 40 mg capsule Indications: Attention deficit disorder, unspecified hyperactivity presence Take 1 capsule (40 mg) by mouth once daily in the morning. 30 capsule 0 11/30/2022 12/30/2022 Active Start: 09-01-2022 End: 10-01-2022 take 1 capsule by mouth once daily in the morning lisdexamfetamine (Vyvanse) 40 mg capsule Indications: Attention deficit disorder, unspecified hyperactivity presence Take 1 capsule (40 mg) by mouth once daily in the morning. 30 capsule 0 09/01/2022 10/01/2022 Active Start: 08-04-2022 End: 09-01-2022 take 1 capsule by mouth once daily Vyvanse 30 mg capsule Indications: Attention deficit disorder, unspecified hyperactivity presence Take 1 capsule (30 mg) by mouth once daily. 30 capsule 0 08/04/2022 09/01/2022 Discontinued (Therapy completed) Start: 04-21-2022 take 1 capsule by [facility] once daily Vyvanse 30 MG Oral Capsule TAKE 1 CAPSULE Daily Quantity: 30 Refills: 0 Ordered: 23-Jun-2022 Tamika Sandhu MD Start : 21-Apr-2022 Active oseltamivir 75 mg oral capsule (1 source) Neuraminidase Inhibitor Start: 05-07-2023 End: 05-12-2023 take 1 capsule by mouth twice daily oseltamivir (Tamiflu) 75 mg capsule Indications: Influenza Take 1 capsule (75 mg) by mouth 2 times a day for 5 days. 10 capsule 0 05/07/2023 05/12/2023 Active Pnv No.750-Os-[id number]-Dha- Epa-Fish 400 mcg-35 mg- 25 mg-5 mg tablet,chewable (9 sources) Start: 06-02-2024 Pnv No.749-Rl-Qe9-Dha- Epa-Fish 400 mcg-35 mg- 25 mg-5 mg tablet,chewable Active 1 {tbl} PO DAILY June 02, 2024 1:00am Start: 06-02-2024 Pnv No.153-Fa- Pj9-Ucn-Euv-Fish 400 mcg-35 mg- 25 mg-5 mg tablet,chewable Active {tbl} PO June 02, 2024 1:00am predniSONE 20 mg oral tablet (1 source) Start: 06-18-2023 End: 06-23-2023 take 1 tablet by mouth once daily predniSONE (Deltasone) 20 mg tablet Indications: Acute sinusitis, recurrence not specified, unspecified location Take 1 tablet (20 mg) by mouth once daily for 5 days. 5 tablet 0 06/18/2023 06/23/2023 Active tretinoin 0.5 mg/ml topical cream (8 sources) Retinoid Start: 04-13-2022 tretinoin (Ret in-A) 0.05 % cream APPLY A THIN LAYER TO THE FACE NIGHTLY TOLERATED. 04/13/2022 Active Start: 04-13-2022 Tretinoin 0.05 % External Cream Quantity: 45 Refills: 0 Ordered: 13-Apr-2022 DO Start : 13-Apr-2022 Active Completed/Discontinued Medications Medication Drug Class(es) Dates Sig (Normalized) Sig (Original) amoxicillin 500 mg oral tablet (6 sources) Penicillin-class Antibacterial Start: 10-11-2024 End: 11-08-2024 take 1 tablet by mouth three times daily Amoxicillin 500 mg tablet Discontinued 500 mg PO THREE TIMES A DAY 84 28 0 October 11, 2024 12:00am November 07, 2024 12:00am November 08, 2024 12:06am Start: 03-28-2024 End: 04-07-2024 take 1 tablet by mouth twice daily amoxicillin (Amoxil) 875 mg tablet Indications: Acute sinusitis, recurrence not specified, unspecified location Take 1 tablet (875 mg) by mouth 2 times a day for 10 days. 20 tablet 03/28/2024 04/07/2024 Active nitrofurantoin, macrocrystals 25 mg / nitrofurantoin, monohydrate 75 mg oral capsule (8 sources) Nitrofuran Antibacterial Start: 10-04-2024 End: 10-11-2024 take 1 capsule by mouth twice daily at mealtime Nitrofurantoin Monohyd/M-Cryst (Macrobid) 100 mg capsule Discontinued 100 mg PO TWICE A DAY 14 7 0 October 04, 2024 12:00am October 10, 2024 12:00am October 11, 2024 12:08am must administer with a meal/food ondansetron 4 mg oral tablet (13 sources) Serotonin-3 Receptor Antagonist Start: 06-02-2024 End: 10-17-2024 take 1 tablet by mouth every eight hours as needed Ondansetron Hcl 4 mg tablet Discontinued 4 mg PO Q8H as needed June 02, 2024 1:00am October 17, 2024 9:33am Start: 05-07-2023 End: 03-28-2024 take 1 tablet by mouth every eight hours for nausea ondansetron ODT (Zofran-ODT) 4 mg disintegrating tablet Indications: Influenza Take 1 tablet (4 mg) by mouth every 8 hours if needed for nausea or vomiting. 10 tablet 05/07/2023 03/28/2024 Discontinued (Therapy completed) Vit,[id number]-Tqmsx 1 TABLET tablet (9 sources) Start: 08-24-2019 End: 06-02-2024 take 1 tablet by mouth once daily Vit,[id number]-Cuwn-Kfsvx 1 TABLET tablet Discontinued 1 {tbl} PO DAILY August 24, 2019 12:00am June 02, 2024 10:17am Check with primary doctor Start: 08-24-2019 End: 06-02-2024 take 1 tablet by mouth once daily Vit,Rqdr09-Vuxz-Xqyta 1 TABLET tablet Discontinued 1 {tbl} PO DAILY August 24, 2019 12:00am June 02, 2024 10:17am Problems Active Problems Problem Classification Problem Date Documented Date Episodic/Chronic Abdominal pain (1 source) Pelvic and perineal pain; Translations: [Pelvic and perineal pain] Onset: 10-04-2024 Episodic Bacterial infection; unspecified site (3 sources) History of methicillin resistant Staphylococcus aureus infection; Translations: [Personal history of Methicillin resistant Staphylococcus aureus] Episodic Comment on above: Rt leg, 2005; Coagulation and hemorrhagic disorders (1 source) Thrombocytopenia, unspecified; Translations: [Thrombocytopenia, unspecified] Onset: 10-17-2024 Chronic Disorders usually diagnosed in infancy, childhood, or adolescence (15 sources) Attention deficit hyperactivity disorder, predominantly inattentive type; Translations: [Attention deficit disorder without mention of hyperactivity] Onset: 09-01-2022 09-01-2022 Chronic Influenza (3 sources) Influenza; Translations: [Influenza due to unidentified influenza virus with other respiratory manifestations] Onset: 05-07-2023 05-07-2023 Episodic Other complications of (20 sources) High risk ; Translations: [Supervision of high risk , unspecified, unspecified trimester] 09-06-2024 Episodic Comment on above: PRR , MARGO 01[birth year]/25 ,girl PC Eileen, Ivette Victor Manuel Other complications of (20 sources) H/O: premature delivery; Translations: [Supervision of other high risk pregnancies, unspecified trimester] 06-02-2024 Episodic Comment on above: first 36 w ks Other complications of (20 sources) H/O: previous delivery by vacuum extraction; Translations: [Supervision of with other poor reproductive or obstetric history, unspecified trimester] 06-02-2024 Episodic Comment on above: first Other complications of (20 sources) Urinary tract infection in ; Translations: [Unspecified infection of urinary tract in , unspecified trimester] 10-04-2024 Episodic Comment on above: culture pending, amelia wade sent macrobid initially. Culture actinomyces, at 50,000 but will treat with Amoxil X 4 wk and will then need repeat culture. LM for ID to discuss, patient declining ATB tx. Other complications of (20 sources) Thrombocytopenic disorder; Translations: [Other diseases of the blood and blood-forming organs and certain disorders involving the immune mechanism complicating , unspecified trimester] 10-02-2024 Episodic Comment on above: repeat in 2 weeks- h ematology consult Platelet count has b een greater than 100K so no intervention needed at this time. She does not meet the criteria for ITP.If Platelets are greater than 80,000, she can get Epidural anesthesia since that is what she wants.. Other complications of (1 source) Other diseases of the blood and blood-forming organs and certain disorders involving the immune mechanism complicating , unspecified trimester; Translations: [Other diseases of the blood and blood-forming organs and certain disorders involving the immune mechanism complicating , unspecified trimester] Onset: 10-17-2024 Episodic Other complications of (1 source) Other specified related conditions, unspecified trimester; Translations: [Other specified related conditions, unspecified trimester] Onset: 10-11-2024 Episodic Other complications of (1 source) Supervision of other high risk pregnancies, unspecified trimester; Translations: [Supervision of other high risk pregnancies, unspecified trimester] Onset: 10-02-2024 Episodic Other complications of (1 source) Supervision of with other poor reproductive or obstetric history, unspecified trimester; Translations: [Supervision of with other poor reproductive or obstetric history, unspecified trimester] Onset: 10-02-2024 Episodic Other complications of (1 source) Supervision of high risk , unspecified, second trimester; Translations: [Supervision of high risk , unspecified, second trimester] Onset: 10-05-2024 Episodic Other and delivery including normal (20 sources) Vaginal delivery; Translations: [Encounter for full-term uncomplicated delivery] Onset: 06-28-2024 12-18-2020 Episodic Comment on above: NIPT low risk, f/u a natomy complete & nl. Other upper respiratory disease (16 sources) Ulcer of nasal septum; Translations: [Abscess, furuncle and carbuncle of nose] 10-17-2024 Episodic Polyhydramnios and other problems of amniotic cavity (9 sources) Spontaneous rupture of membranes 12-18-2020 Episodic Prolapse of female genital organs (20 sources) Cystocele co-occurrent with incomplete uterovaginal prolapse; Translations: [Incomplete uterovaginal prolapse] 10-04-2024 Chronic Comment on above: declines pessary Residual codes; unclassified (9 sources) Gestation period, 36 weeks; Translations: [36 weeks gestation of ] 12-18-2020 Episodic Residual codes; unclassified (20 sources) H/O: ; Translations: [Personal history of other complications of , childbirth and the puerperium] 06-02-2024 Episodic Comment on above: first Residual codes; unclassified (1 source) Personal history of other complications of , childbirth and the puerperium; Translations: [Personal history of other complications of , childbirth and the puerperium] Onset: 10-02-2024 Episodic Residual codes; unclassified (1 source) 26 weeks gestation of ; Translations: [26 weeks gestation of ] Onset: 10-02-2024 Episodic Screening and history of mental health and substance abuse codes (3 sources) Personal history of other mental and behavioral disorders; Translations: [History of attention deficit hyperactivity disorder (ADHD)] Episodic Past or Other Problems Problem Classification Problem Date Documented Da te Episodic/Chronic Other complications of (1 source) Supervision of high risk , unspecified, unspecified trimester; Translations: [Supervision of high risk , unspecified, unspecified trimester] Onset: 08-04-2024 Episodic Other screening for suspected conditions (not mental disorders or infectious disease) (1 source) Encounter for screening for malignant neoplasm of cervix; Translations: [Encounter for screening for malignant neoplasm of cervix] Onset: 06-09-2024 Episodic Other upper respiratory infections (4 sources) Acute sinusitis; Translations: [Acute sinusitis, unspecified] Onset: 06-18-2023 06-18-2023 Episodic Residual codes; unclassified (1 source) 10 weeks gestation of ; Translations: [10 weeks gestation of ] Onset: 06-09-2024 Episodic Results Test Name Value Interpretation Reference Range Facility Absolute lymphocyte countOrd ered By: Citlalli Cabrera on 11-21-2024 Lymphocytes Auto (Unsp spec) [#/Vol] 1.73 10*3/uL 0.83-4.51 [facility] Absolute neutrophil countOrd ered By: Citlalli Cabrera on 11-21-2024 Neutrophils (Bld) [#/Vol] 8.7 10*3/uL High 2.0-7.7 [facility] Activated partial thrombopla stin time (aPTT) in platelet poor plasma by coagulation aOrdered By: Citlalli Cabrera on 11-21-2024 aPTT Coag (PPP) [Time] 23.7 s Low 24.1-36.2 [facility] Automated lymphocyte count a s percentage of total leukocytesOrdered By: Citlalli Cabrera on 11-21-2024 Lymphocytes/100 WBC Auto (Unsp spec) 15.4 % Low 19-41 [facility] Basophil percentageOrdered B y: Citlalli Cabrera on 11-21-2024 Basophils/100 WBC (Bld) 0.3 % 0-1 [facility] Bilirubin Test strip Ql (U)O rdered By: Citlalli Cabrera on 11-21-2024 Bilirubin Ql (U) Negative Negative [facility] CBC W/Diff, Automatedon 11-01 Absolute Lymph 1.73 X10 3/uL Normal 0.83-4.51 [facility] Comment on above: Performed By: #### L 7000.1800, L7400.0280, M100.2200 #### [facility] [address] [place], [address] Absolute Neut 8.7 X10 3/uL High 2.0-7.7 [facility] Comment on above: Performed By: #### L 7000.1800, L7400.0280, M100.2200 #### [facility] [address] [place], [address] Basophils/100 WBC (Bld) 0.3 % Normal 0-1 [facility] Comment on above: Performed By: #### L 7000.1800, [id number], M100.2200 #### [facility] [address] [place], [address] Eosinophils/100 WBC (Bld) 0.8 % Normal 0-5 [facility] Comment on above: Performed By: #### L 7000.1800, L7400.0280, M100.2200 #### [facility] [address] [place], [address] Erythrocyte distribution width (RBC) [Ratio] 12.4 % Normal 11.6-14.6 [facility] Comment on above: Performed By: #### L 7000.1800, L7400.0280, M100.2200 #### [facility] [address] [place], [address] Hematocrit (Bld) [Volume fraction] 37.3 % Normal 37-47 [facility] Comment on above: Performed By: #### L 7000.1800, L7400.0280, M100.2200 #### [facility] [address] [place], [address] Hemoglobin (Bld) [Mass/Vol] 12.7 g/dL Normal 12.0-15.0 [facility] Comment on above: Performed By: #### L 7000.1800, L7400.0280, M100.2200 #### [facility] [address] [place], [address] IG% 0.500 Normal 0.0-0.9 [facility] Comment on above: Result Comment: IG% - Immature Granulocytes (promyelocytes, myelocytes and metamyelocytes) > 1% indicates that a LEFT SHIFT is Present. Performed By: #### L 7000.1800, L7400.0280, M100.2200 #### [facility] [address] [place], [address] Lymphocytes/100 WBC (Bld) 15.4 % Low 19-41 [facility] Comment on above: Performed By: #### L 7000.1800, [id number], M100.2200 #### [facility] [address] [place], [address] MCH (RBC) [Entitic mass] 30.7 pg Normal 27.0-32.0 [facility] Comment on above: Performed By: #### L 7000.1800, [id number], M100.2200 #### [facility] [address] [place], [address] MCHC (RBC) [Mass/Vol] 34.0 g/dL Normal 32-36 [facility] Comment on above: Performed By: #### L 7000.1800, [id number], M100.2200 #### [facility] [address] [place], [address] MCV (RBC) [Entitic vol] 90.1 fL Normal 81-99 [facility] Comment on above: Performed By: #### L 7000.1800, [id number], M100.2200 #### [facility] [address] [place], [address] Monocytes/100 WBC (Bld) 6.0 % Normal 0-10 [facility] Comment on above: Performed By: #### L 7000.1800, [id number], M100.2200 #### [facility] [address] [place], [address] Neutrophils/100 WBC (Bld) 77.0 % High 47-70 [facility] Comment on above: Performed By: #### L 7000.1800, [id number], M1.2199 #### [facility] [address] [place], [address] Nucleated RBC (Bld) [#/Vol] 0 10*3/uL Normal 0-5 [facility] Comment on above: Performed By: #### L 7000.1800, [id number], #### [facility] [address] [place], [address] Platelet mean volume (Bld) [Entitic vol] 12.4 fL High 6.2-12.0 [facility] Comment on above: Performed By: #### L 7000.1800, [id number], #### [facility] [address] [place], [address] Platelets (Bld) [#/Vol] 108 10*3/uL Low 150-450 [facility] Comment on above: Performed By: #### L 7000.1800, [id number], .2199 #### [facility] [address] [place], [address] RBC (Bld) [#/Vol] 4.14 10*6/uL Low 4.2-5.4 [facility] Comment on above: Performed By: #### L 7000.1800, [id number], #### [facility] [address] [place], [address] RDW SD 40.7 fl Normal 35.1-43.9 [facility] Comment on above: Performed By: #### L 7000.1800, [id number], M100.0 #### [facility] [address] [place], [address] WBC (Bld) [#/Vol] 11.2 10*3/uL High 4.4-11.0 [facility] Comment on above: Performed By: #### L 7000.1800, [id number], M100.2200 #### [facility] [address] [place], [address] Eosinophil percentageOrdered By: Citlalli Cabrera on 11-21-2024 Eosinophils/100 WBC (Bld) 0.8 % 0-5 [facility] Erythrocyte distribution wid th ratioOrdered By: Citlalli Cabrera on 11-21-2024 Erythrocyte distribution width (RBC) [Ratio] 12.4 % 11.6-14.6 [facility] Erythrocyte distribution wid th standard deviationOrdered By: Citlalli Cabrera on 11-21-2024 Erythrocyte distribution width (RBC) [Ratio] 40.7 fl 35.1-43.9 [facility] Fibrinogenon 11-21-2024 FIBRINOGEN 425 mg/dl Normal 203-444 [facility] Comment on above: Performed By: #### L 7000.1800, [id number], M100.2200 #### [facility] [address] [place], [address] Hematocrit Auto (Bld) [Volum e fraction]Ordered By: Citlalli Cabrera on 11-21-2024 Hematocrit (Bld) [Volume fraction] 37.3 % 37-47 [facility] Hemoglobin measurementOrdere d By: Citlalli Cabrera on 11-21-2024 Hemoglobin (Bld) [Mass/Vol] 12.7 g/dL 12.0-15.0 [facility] Immature granulocytes/100 WB C Auto (Bld)Ordered By: Citlalli Cabrera on 11-21-2024 Immature granulocytes/100 WBC (Bld) 0.500 % 0.0-0.9 [facility] Comment on above: IG% - Immature Granu locytes (promyelocytes, myelocytes and metamyelocytes) > 1% indicates that a LEFT SHIFT is Present. International normalized rat io (INR) calculationOrdered By: Citlalli Cabrera on 11-21-2024 INR Coag (Bld) [Relative time] 0.9 {INR} [facility] Ketones Test strip Ql (U)Ord ered By: Citlalli Cabrera on 11-21-2024 Ketones Ql (U) Negative Negative [facility] MCV (mean corpuscular volume ) determinationOrdered By: Citlalli Cabrera on 11-21-2024 MCV (RBC) [Entitic vol] 90.1 fL 81-99 [facility] Mean corpuscular hemoglobin (MCH) determinationOrdered By: Citlalli Cabrera on 11-21-2024 MCH (RBC) [Entitic mass] 30.7 pg 27.0-32.0 [facility] Mean corpuscular hemoglobin concentration (MCHC) determinationOrdered By: Citlalli Cabrera on 11-21-2024 MCHC (RBC) [Mass/Vol] 34.0 g/dL 32-36 [facility] Mean platelet volume determi nationOrdered By: Citlalli Cabrera on 11-21-2024 Platelet mean volume (Bld) [Entitic vol] 12.4 fL High 6.2-12.0 [facility] Monocyte percentageOrdered B y: Citlalli Cabrera on 11-21-2024 Monocytes/100 WBC (Bld) 6.0 % 0-10 [facility] Neutrophil percentageOrdered By: Citlalli Cabrera on 11-21-2024 Neutrophils/100 WBC (Bld) 77.0 % High 47-70 [facility] Nitrite Test strip Ql (U)Ord ered By: Citlalli Cabrera on 11-21-2024 Nitrite Ql (U) Negative Negative [facility] Nucleated red blood cell per centageOrdered By: Citlalli Cabrera on 11-21-2024 Nucleated RBC/100 WBC (Bld) [Ratio] 0 % 0-5 [facility] OB Triage Progress Noteon OB Triage Progress Note [facility] Medical Records Department [address] [place] [address] OB Triage Progress Note 11/21/24 0952 MR#: [id number] Acct: [id number] Name: MARIBEL CROCKETT Rep #: [id number] : 1990 34 From: Citlalli Cabrera MD PCP: Care Physician,No Primary Status:DEP CLI Y DOS: Location: WPOUT Progress Notes Date of Service: 11/21/24 Progress Note: Patient presents for triage evaluation secondary to vaginal bleeding pregnacy FHT: 140 Moderate variability reactive no decelerations category I tracing [place]: occasional Contractions Assessment and plan: threatened labor no cervical change Reactive NST, reassuring maternal and status patient discharged to home to follow-up as schedule no cervical change ua and culture sent. See problem list details for additional plan information. Laboratory Studies: Laboratory Tests 11/21/24 Range/Units 08:33 WBC 11.2 H (4.4-11.0) K/mm3 RBC 4.14 L (4.2-5.4) M/mm3 Hgb 12.7 (12.0-15.0) g/dL Hct 37.3 (37-47) % MCV 90.1 (81-99) fL MCH 30.7 (27.0-32.0) pg MCHC 34.0 (32-36) g/dL RDW Std Deviation 40.7 (35.1-43.9) fl RDW Coeff of Johanna 12.4 (11.6-14.6) % Plt Count 108 L (150-450) K/mm3 MPV 12.4 H (6.2-12.0) fl Immature Gran % (Auto) 0.500 (0.0-0.9) % Neut % (Auto) 77.0 H (47-70) % Lymph % (Auto) 15.4 L (19-41) % [place] % (Auto) 6.0 (0-10) % Eos % (Auto) 0.8 (0-5) % Baso % (Auto) 0.3 (0-1) % Absolute Neuts (auto) 8.7 H (2.0-7.7) X10 3/uL Absolute Lymphs (auto) 1.73 (0.83-4.51) X10 3/uL Nucleated RBC % 0 (0-5) % PT 12.4 (11.7-14.9) SECONDS INR 0.9 APTT 23.7 L (24.1-36.2) Seconds Fibrinogen 425 (203-444) mg/dl Urine Color Yellow (Yellow) Urine Clarity Sl. Cloudy (Clear) Urine pH 8.0 (5.0 - 8.0) Ur Specific [place] 1.015 (1.002-1.030) Urine Protein 15 H (Negative) mg/dl Urine Glucose (UA) Normal (Normal) mg/dl Urine Ketones Negative (Negative) mg/dl Urine Occult Blood 10 H (Negative) /ul Urine Nitrite Negative (Negative) Urine Bilirubin Negative (Negative) mg/dL Urine Urobilinogen Normal (Normal) mg/dl Ur Leukocyte Esterase 500 H (Negative) /ul Blood Type A POSITIVE Antibody Screen NEGATIVE Charges/Coding Procedures Urinary/Genital 52xxx-59xxx: [id number] non-stress test Interp 11/21/242001 Date Citlalli Cabrera MD Cosigner Signature (if applicable): Date CC: Dr. Citlalli Cabrera MD; No Primary Care Physician Signed Normal [facility] Partial Thromboplast Timeon 11-21-2024 aPTT Coag (Bld) [Time] 23.7 s Low 24.1-36.2 [facility] Comment on above: Performed By: #### L 7000.1800, L7400.0280, M100.2200 #### [facility] [address] [place] [address], [address] Platelet countOrdered By: Khoi Cabrera on 11-21-2024 Platelets (Bld) [#/Vol] 108 10*3/uL Low 150-450 [facility] Protein Test strip Ql (U)Ord ered By: Citlalli Cabrera on 11-21-2024 Protein Ql (U) 15 mg/dl High Negative [facility] Prothrombin Time w/INRon INR Coag (PPP) [Relative time] 0.9 {INR} Normal [facility] Comment on above: Performed By: #### L 7000.1800, L7400.0280, M100.2200 #### [facility] [address] [place], [address] PT Coag (PPP) [Time] 12.4 s Normal 11.7-14.9 [facility] Comment on above: Performed By: #### L 7000.1800, L7400.0280, M100.2200 #### [facility] [address] [place], [address] Prothrombin timeOrdered By: Citlalli Cabrera on 11-21-2024 PT Coag (PPP) [Time] 12.4 s 11.7-14.9 [facility] RBC Auto (Bld) [#/Vol]Ordere d By: Citlalli Cabrera on 11-21-2024 RBC (Bld) [#/Vol] 4.14 10*6/uL Low 4.2-5.4 [facility] Type AND Screenon 11-21-2024 Ab SCREEN GEL Negative Normal [facility] Comment on above: Order Comment: Labor Performed By: #### L 7000.1800, L7400.0280, M100.2200 #### [facility] [address] [place], [address] Urinalysis, Routine (Dipstic k)on 11-21-2024 BILIRUBIN URINE Negative Normal Negative [facility] Comment on above: Order Comment: CLEAN CATCH Performed By: #### L 7000.1800, L7400.0280, M100.2200 #### [facility] [address] [place], [address] Clarity (U) Sl. Cloudy Normal Clear [facility] Comment on above: Order Comment: CLEAN CATCH Performed By: #### L 7000.1800, L7400.0280, M100.2200 #### [facility] [address] [place], [address] Color (U) Yellow Normal Yellow [facility] Comment on above: Order Comment: CLEAN CATCH Performed By: #### L 7000.1800, L7400.0280, M100.2200 #### [facility] [address] [place], [address] GLUCOSE, UR Normal Normal Normal [facility] Comment on above: Order Comment: CLEAN CATCH Performed By: #### L 7000.1800, L7400.0280, M100.2200 #### [facility] [address] [place], [address] KETONE UR Negative Normal Negative [facility] Comment on above: Order Comment: CLEAN CATCH Performed By: #### L 7000.1800, L7400.0280, M100.2200 #### [facility] [address] [place], [address] LEUK ESTERASE 500 /ul Abnormal Negative [facility] Comment on above: Order Comment: CLEAN CATCH Performed By: #### L 7000.1800, L7400.0280, M100.2200 #### [facility] [address] [place], [address] Nitrite Ql (U) Negative Normal Negative [facility] Comment on above: Order Comment: CLEAN CATCH Performed By: #### L 7000.1800, L7400.0280, M100.2200 #### [facility] [address] [place], [address] OCCULT BLOOD-UR 10 /ul Abnormal Negative [facility] Comment on above: Order Comment: CLEAN CATCH Performed By: #### L 7000.1800, L7400.0280, M100.2200 #### [facility] [address] [place], [address] pH UR 8.0 Normal 5.0 - 8.0 [facility] Comment on above: Order Comment: CLEAN CATCH Performed By: #### L 7000.1800, L7400.0280, M100.2200 #### [facility] [address] [place], [address] PROT DIPSTX 15 mg/dl Abnormal Negative [facility] Comment on above: Order Comment: CLEAN CATCH Performed By: #### L 7000.1800, L7400.0280, M100.2200 #### [facility] [address] [place], [address] SP.GR. DIPSTX 1.015 Normal 1.002-1.030 [facility] Comment on above: Order Comment: CLEAN CATCH Performed By: #### L 7000.1800, L7400.0280, M100.2200 #### [facility] [address] [place], [address] UROBILI Normal Normal Normal [facility] Comment on above: Order Comment: CLEAN CATCH Performed By: #### L 7000.1800, L7400.0280, M100.2200 #### [facility] [address] [place], [address] BILIRUBIN URINE Normal Negative [facility] Comment on above: Order Comment: COLLE CTOR TO SPECIFY Result Comment: Canc elled via OM: Order edited - Discontinuing original order Performed By: #### L 7000.1800, L7400.0280, M100.2200 #### [facility] [address] [place], [address] Clarity (U) Normal Clear [facility] Comment on above: Order Comment: COLLE CTOR TO SPECIFY Result Comment: Canc elled via OM: Order edited - Discontinuing original order Performed By: #### L 7000.1800, L7400.0280, M100.2200 #### [facility] [address] [place], [address] Color (U) Normal Yellow [facility] Comment on above: Order Comment: COLLE CTOR TO SPECIFY Result Comment: Canc elled via OM: Order edited - Discontinuing original order Performed By: #### L 7000.1800, L7400.0280, M100.2200 #### [facility] [address] [place], [address] GLUCOSE, UR Normal Normal [facility] Comment on above: Order Comment: COLLE CTOR TO SPECIFY Result Comment: Canc elled via OM: Order edited - Discontinuing original order Performed By: #### L 7000.1800, L7400.0280, M100.2200 #### [facility] [address] [place], [address] KETONE UR Normal Negative [facility] Comment on above: Order Comment: CAROLE CTOR TO SPECIFY Result Comment: Canc elled via OM: Order edited - Discontinuing original order Performed By: #### L 7000.1800, L7400.0280, M100.2200 #### [facility] [address] [place], [address] LEUK ESTERASE Normal Negative [facility] Comment on above: Order Comment: CAROLE CTOR TO SPECIFY Result Comment: Canc elled via OM: Order edited - Discontinuing original order Performed By: #### L 7000.1800, L7400.0280, M100.2200 #### [facility] [address] [place], [address] Nitrite Ql (U) Normal Negative [facility] Comment on above: Order Comment: CAROLE CTOR TO SPECIFY Result Comment: Canc elled via OM: Order edited - Discontinuing original order Performed By: #### L 7000.1800, L7400.0280, M100.2200 #### [facility] [address] [place], [address] OCCULT BLOOD-UR Normal Negative [facility] Comment on above: Order Comment: COLLE CTOR TO SPECIFY Result Comment: Canc elled via OM: Order edited - Discontinuing original order Performed By: #### L 7000.1800, L7400.0280, M100.2200 #### [facility] [address] [place], [address] pH UR Normal 5.0 - 8.0 [facility] Comment on above: Order Comment: COLLE CTOR TO SPECIFY Result Comment: Canc elled via OM: Order edited - Discontinuing original order Performed By: #### L 7000.1800, L7400.0280, M100.2200 #### [facility] [address] [place], [address] PROT DIPSTX Normal Negative [facility] Comment on above: Order Comment: COLLE CTOR TO SPECIFY Result Comment: Canc elled via OM: Order edited - Discontinuing original order Performed By: #### L 7000.1800, L7400.0280, M100.2200 #### [facility] [address] [place], [address] SP.GR. DIPSTX Normal 1.002-1.030 [facility] Comment on above: Order Comment: COLLE CTOR TO SPECIFY Result Comment: Canc elled via OM: Order edited - Discontinuing original order Performed By: #### L 7000.1800, L7400.0280, M100.2200 #### [facility] [address] [place], [address] UR Preservative Normal [facility] Comment on above: Order Comment: COLLE CTOR TO SPECIFY Result Comment: Canc elled via OM: Order edited - Discontinuing original order Performed By: #### L 7000.1800, L7400.0280, M100.2200 #### [facility] [address] [place], [address] UROBILI Normal Normal [facility] Comment on above: Order Comment: COLLE CTOR TO SPECIFY Result Comment: Canc elled via OM: Order edited - Discontinuing original order Performed By: #### L 7000.1800, L7400.0280, M100.2200 #### [facility] [address] [place], [address] Urine clarityOrdered By: Felton Cabrera on 11-21-2024 Clarity (U) Sl. Cloudy Clear [facility] Urine color determinationOrd ered By: Citlalli Cabrera on 11-21-2024 Color (U) Yellow Yellow [facility] Urine glucose detectionOrder ed By: Citlalli Cabrera on 11-21-2024 Glucose Ql (U) Normal mg/dl Normal [facility] Urine leukocyte esterase det ection by dipstickOrdered By: Citlalli Cabrera on 11-21-2024 Leukocyte esterase Test strip Ql (U) 500 /ul High Negative [facility] Urine pHOrdered By: Citlalli medrano on 11-21-2024 pH (U) 8.0 [pH] 5.0 - 8.0 [facility] Urine specific gravity measu rementOrdered By: Citlalli Cabrera on 11-21-2024 Specific gravity (U) [Rel density] 1.015 1.002-1.030 [facility] Urine urobilinogen measureme ntOrdered By: Citlalli Cabrera on 11-21-2024 Urobilinogen Ql (U) Normal mg/dl Normal [facility] White blood cell (WBC) count Ordered By: Citlalli Cabrera on 11-21-2024 WBC (Bld) [#/Vol] 11.2 10*3/uL High 4.4-11.0 [facility] - Chemistry and C hemistry - challengeOrdered By: Kamla Zheng on 11-08-2024 Glucose Ql (U) Negative [facility] - UrinalysisOrder ed By: Kamla Zheng on 11-08-2024 Protein Ql (U) Negative [facility] 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 Reporton 11-08-2024 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 Report [address], [address] [place] [address] OFFICE VISIT Date of Service: 11/08/24 MR#: [id number] Acct: [id number] Name: MARIBEL CROCKETT Rep #: [id number] : 1990 Provider: MITZI johnson Age/Sex: 34/F Location: [facility] Status: Signed Intake Vital Signs 10/02/24 14:24 10/23/24 15:11 11/08/24 15:43 Height 5 ft 7.5 in 5 ft 7.5 in 5 ft 7.5 in Weight: 143 lb 2 oz BMI 22.1 BP 118/64 Intake Visit Reasons: 32 wk ob Chief Complaint: 32 Week OB Inspector Cold Working Required: No Is patient in pain?: No Allergies No Known Allergies Allergy (Verified 11/08/24 15:44) Medications ???Medication ???Instructions ???Recorded ???Confirmed ???Type PNV 153-FA 400 mcg-om3 35 mg-dha tab PO 06/02/24 11/08/24 History 25 mg-epa 5 mg-fish oil chew tablet Last Menstrual Period: 03/30/24 Zika: Zika virus screening: Negative : No PFSH PFSH Medical History Varicose vein vulva-delivered FH: breast cancer Cystitis during , antepartum False labor Gestational thrombocytopenia 30 weeks gestation of Surgical History H/O basal cell carcinoma excision History of surgery History of surgery History of surgery Family History Grandmother Breast cancer, Onset Age: 65 Maternal- mets to liver Grandfather Myocardial infarction, Onset Age: 78 Paternal Social History adopted: No household members: spouse and children number of children: 2 current occupational status: unemployed current occupation: [employer] pets and animals: Yes pets and animals: dog(s) history of recent travel: No sexually active: Yes Smoking Status: Never smoker alcohol intake: current alcohol intake frequency: a few times a month details: Not while substance use type: does not use well-balanced diet: daily or most days caffeine: Yes Type: coffee Number of servings: 2 eating out: rarely or never during the past year weight has: remained stable what type of physical activity do you participate in: none ramesh/congregation: Gn[employer]ism seatbelt use: always do you feel safe at home: Yes 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 Date Name GA/Weeks Outcome Route Bth Weight Infant Gen Labor Lgth Anesthesia Del Locatn Provider FOB 08/24/19 [place] 36 live - vacuum 6lb 8 oz Female 12 epidural [facility] l[facility]aron Neri Rush 02/22/21 [place] 38 live - full term 6# 8oz Female epidural [facility] Asamichelle cid Victor Manuel Delivery Date: 08/24/19 Last Updated by: Carlee He MD pprom, labor, chorioamnionitis Delivery Date: 02/22/21 Last Updated by: Patricia Nichols iol, , prolapse(vulvo-vaginal varicosity) at 26 wks and two more times after- no problems since HPI 32 wk ob Details: MARIBEL CROCKETT is a 34 year old who presents for routine OB visit. OB Visit MARGO Calculator Estimated Delivery Date Method Current WG Current Estimate 01/04/25 LMP (Uncertain) 31w 6d Other Estimates 01/02/25 Ultrasound #1 32w 1d Expected Delivery Route/Plan Labor Preferences- CB/BF classes: no labor support person: Victor Manuel labor intervention preferences: [] pain management options preferred: discussed cut cord/dad catch: cord : yes PP control planned: discussed discussed possible routes of delivery and associated risks: [] special requests: [] Specific Issue/Plans Covid status: [] Flu vaccine: [] Tdap vaccine: [] Rhogam: [] LARC form signed: [] Problem list reviewed and updated with the most current plan of care details and appropriate orders placed. Relevant counseling for the gestational age provided. Continue routine care and follow up unless otherwise noted in visit notes/problem list details Initial Weight: Not Recorded Date -???-???-???-???-???-???- ???-???-???-???-???-???- EGA Weight BP Urine Prot -???-???-???-???-???-???- ???-???-???-???-???-???- Glucose FHR FuHt Pres Dilation -???-???-???-???-???-???- ???-???-???-???-???-???- Effaced St Visit Note 06/09/24 -???-???-???-???-???-???- ???-???-???-???-???-???- 10w 1d 121 lb 6 oz 116/80 -???-???-???-???-???-???- ???-???-???-???-???-???- 175 -???-???-???-???-???-???- ???-???-???-???-???-???- SM- CRL 3.5 cm cons with LMP 07/14/24 -???- (more content not included)... Normal [facility] - Chemistry and C hemistry - challengeOrdered By: Citlalli Cabrera on 10-23-2024 Glucose Ql (U) Negative [facility] - UrinalysisOrder ed By: Citlalli Cabrera on 10-23-2024 Protein Ql (U) Negative [facility] 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 Reporton 10-23-2024 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 Report [facility] [address], [address] [place] [address] OFFICE VISIT Date of Service: 10/23/24 MR#: [id number] Acct: [id number] Name: MARIBEL CROCKETT Rep #: [id number] : 1990 Provider: Dr. Citlalli acuna MD Age/Sex: 34/F Location: [facility] Status: Signed Intake Vital Signs 08/09/24 15:05 10/17/24 09:36 10/23/24 15:11 Height 5 ft 7.5 in 5 ft 7.5 in Weight: 144 lb 4 oz BMI 22.2 BP 95/60 Intake Visit Reasons: 30wk ob, pessary fitting. Inspector Cold Working Required: No Is patient in pain?: Yes (vaginal prolapse causing discomfort) Allergies No Known Allergies Allergy (Verified 10/23/24 15:09) Medications ???Medication ???Instructions ???Recorded ???Confirmed ???Type PNV 153-FA 400 mcg-om3 35 mg-dha tab PO 06/02/24 10/23/24 History 25 mg-epa 5 mg-fish oil chew tablet amoxicillin 500 mg tablet 500 mg PO TID 28 days #84 tabs 03/2710/23/24 Rx Last Menstrual Period: 03/30/24 Zika: Zika virus screening: Negative : No PFSH PFSH Medical History Varicose vein vulva-delivered FH: breast cancer Cystitis during , antepartum False labor Gestational thrombocytopenia 30 weeks gestation of Surgical History H/O basal cell carcinoma excision History of surgery History of surgery History of surgery Family History Grandmother Breast cancer, Onset Age: 65 Maternal- mets to liver Grandfather Myocardial infarction, Onset Age: 78 Paternal Social History adopted: No household members: spouse and children number of children: 2 current occupational status: unemployed current occupation: [employer] pets and animals: Yes pets and animals: dog(s) history of recent travel: No sexually active: Yes Smoking Status: Never smoker alcohol intake: current alcohol intake frequency: a few times a month details: Not while substance use type: does not use well-balanced diet: daily or most days caffeine: Yes Type: coffee Number of servings: 2 eating out: rarely or never during the past year weight has: remained stable what type of physical activity do you participate in: none ramesh/congregation: [employer] seatbelt use: always do you feel safe at home: Yes 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 Date Name GA/Weeks Outcome Route Bth Weight Gen Labor Lgth Anesthesia Del Locatn Provider FOB 08/24/19 [place] 36 live - vacuum 6lb 8 oz Female 12 epidural [facility] l[facility] Neri Victor Manuel 02/22/21 [place] 38 live - full term 6# 8oz Female epidural [facility] Asamichelle cid Victor Manuel Delivery Date: 08/24/19 Last Updated by: Carlee He MD pprom, labor, chorioamnionitis Delivery Date: 02/22/21 Last Updated by: Patricia Nichols iol, , prolapse(vulvo-vaginal varicosity) at 26 wks and two more times after- no problems since HPI 30wk ob, pessary fitting. Details: MARIBEL CROCKETT is a 34 year old who presents for routine OB visit. OB Visit MARGO Calculator Estimated Delivery Date Method Current WG Current Estimate 01/04/25 LMP (Uncertain) 29w 4d Other Estimates 01/02/25 Ultrasound #1 29w 6d Expected Delivery Route/Plan Labor Preferences- CB/BF classes: no labor support person: Victor Manuel labor intervention preferences: [] pain management options preferred: discussed cut cord/dad catch: cord : yes PP control planned: discussed discussed possible routes of delivery and associated risks: [] special requests: [] Specific Issue/Plans Covid status: [] Flu vaccine: [] Tdap vaccine: [] Rhogam: [] LARC form signed: [] Problem list reviewed and updated with the most current plan of care details and appropriate orders placed. Relevant counseling for the gestational age provided. Continue routine care and follow up unless otherwise noted in visit notes/problem list details Initial Weight: Not Recorded Date -???-???-???-???-???-???- ???-???-???-???-???-???- EGA Weight BP Urine Prot -???-???-???-???-???-???- ???-???-???-???-???-???- Glucose FHR FuHt Pres Dilation -???-???-???-???-???-???- ???-???-???-???-???-???- Effaced St Visit Note 06/09/24 -???-???-???-???-???-???- ???-???-???-???-???-???- 10w 1d 121 lb 6 oz 116/80 -???-???-???-???-???-???- ???-???-???-???-???-???- (more content not included)... Normal [facility] Absolute lymphocyte countOrd ered By: Samm Colbert on 10-17-2024 Lymphocytes Auto (Unsp spec) [#/Vol] 1.56 10*3/uL 0.83-4.51 [facility] Absolute neutrophil countOrd ered By: Samm Colbert on 10-17-2024 Neutrophils (Bld) [#/Vol] 7.0 10*3/uL 2.0-7.7 [facility] Anion gap in Serum or Plasma Ordered By: Samm Colbert on 10-17-2024 Anion gap [Moles/Vol] 10 mmol/L 5-15 [facility] Automated lymphocyte count a s percentage of total leukocytesOrdered By: Samm Colbert on 10-17-2024 Lymphocytes/100 WBC Auto (Unsp spec) 16.8 % Low 19-41 [facility] BUN/creatinine ratioOrdered By: Samm Colbert on 10-17-2024 Urea nitrogen/Creatinine [Mass ratio] 18.6 mg/mg 10-20 [facility] Basophil percentageOrdered B y: Samm Colbert on 10-17-2024 Basophils/100 WBC (Bld) 0.2 % 0-1 [facility] Bilirubin, totalOrdered By: Samm Colbert on 10-17-2024 Bilirubin [Mass/Vol] mg/dL 0.00-1.30 [facility] CBC W/Diff, Automatedon 10-01 Absolute Lymph 1.56 X10 3/uL Normal 0.83-4.51 [facility] Comment on above: Performed By: #### L 7000.1800, L7400.0280, M100.2200 #### [facility] [address] [place], [address] Absolute Neut 7.0 X10 3/uL Normal 2.0-7.7 [facility] Comment on above: Performed By: #### L 7000.1800, L7400.0280, M100.2200 #### [facility] [address] [place], [address] Basophils/100 WBC (Bld) 0.2 % Normal 0-1 [facility] Comment on above: Performed By: #### L 7000.1800, L7400.0280, M100.2200 #### [facility] [address] [place], [address] Eosinophils/100 WBC (Bld) 0.9 % Normal 0-5 [facility] Comment on above: Performed By: #### L 7000.1800, L7400.0280, M100.2200 #### [facility] [address] [place], [address] Erythrocyte distribution width (RBC) [Ratio] 12.6 % Normal 11.6-14.6 [facility] Comment on above: Performed By: #### L 7000.1800, L7400.0280, M100.2200 #### [facility] [address] [place], [address] Hematocrit (Bld) [Volume fraction] 37.7 % Normal 37-47 [facility] Comment on above: Performed By: #### L 7000.1800, L7400.0280, M100.2200 #### [facility] [address] [place], [address] Hemoglobin (Bld) [Mass/Vol] 12.8 g/dL Normal 12.0-15.0 [facility] Comment on above: Performed By: #### L 7000.1800, L7400.0280, M100.2200 #### [facility] [address] [place], [address] IG% 0.500 Normal 0.0-0.9 [facility] Comment on above: Result Comment: IG% - Immature Granulocytes (promyelocytes, myelocytes and metamyelocytes) > 1% indicates that a LEFT SHIFT is Present. Performed By: #### L 7000.1800, L7400.0280, M100.0 #### [facility] [address] [place], [address] Lymphocytes/100 WBC (Bld) 16.8 % Low 19-41 [facility] Comment on above: Performed By: #### L 7000.1800, L7400.0280, M100.0 #### [facility] [address] [place], [address] MCH (RBC) [Entitic mass] 30.9 pg Normal 27.0-32.0 [facility] Comment on above: Performed By: #### L 7000.1800, L7400.0280, M100.0 #### [facility] [address] [place], [address] MCHC (RBC) [Mass/Vol] 34.0 g/dL Normal 32-36 [facility] Comment on above: Performed By: #### L 7000.1800, L7400.0280, M100.2200 #### [facility] [address] [place], [address] MCV (RBC) [Entitic vol] 91.1 fL Normal 81-99 [facility] Comment on above: Performed By: #### L 7000.1800, L7400.0280, M100.2200 #### [facility] [address] [place], [address] Monocytes/100 WBC (Bld) 6.7 % Normal 0-10 [facility] Comment on above: Performed By: #### L 7000.1800, L7400.0280, M100.2200 #### [facility] [address] [place], [address] Neutrophils/100 WBC (Bld) 74.9 % High 47-70 [facility] Comment on above: Performed By: #### L 7000.1800, L7400.0280, M100.2200 #### [facility] [address] [place], [address] Nucleated RBC (Bld) [#/Vol] 0 10*3/uL Normal 0-5 [facility] Comment on above: Performed By: #### L 7000.1800, L7400.0280, M100.2200 #### [facility] [address] [place], [address] Platelet mean volume (Bld) [Entitic vol] 11.9 fL Normal 6.2-12.0 [facility] Comment on above: Performed By: #### L 7000.1800, L7400.0280, M100.2200 #### [facility] [address] [place], [address] Platelets (Bld) [#/Vol] 105 10*3/uL Low 150-450 [facility] Comment on above: Performed By: #### L 7000.1800, L7400.0280, M100.2200 #### [facility] [address] [place], [address] RBC (Bld) [#/Vol] 4.14 10*6/uL Low 4.2-5.4 [facility] Comment on above: Performed By: #### L 7000.1800, L7400.0280, M100.2200 #### [facility] [address] [place], [address] RDW SD 41.7 fl Normal 35.1-43.9 [facility] Comment on above: Performed By: #### L 7000.1800, L7400.0280, M100.2200 #### [facility] [address] [place], [address] WBC (Bld) [#/Vol] 9.3 10*3/uL Normal 4.4-11.0 [facility] Comment on above: Performed By: #### L 7000.1800, L7400.0280, M100.0 #### [facility] [address] [place], [address] Carbon dioxide, total [Moles /volume] in Central venous bloodOrdered By: Samm Colbert on 10-17-2024 CO2 [Moles/Vol] 21.0 mmol/L 21.0-32.0 [facility] Chloride assayOrdered By: Aidee Colbert on 10-17-2024 Chloride [Moles/Vol] 104 mmol/L 98-108 [facility] Comprehensive Metabolic Prof ilon 10-17-2024 Albumin [Mass/Vol] 3.5 g/dL Normal 3.5-5.0 [facility] Comment on above: Performed By: #### L 7000.1800, L7400.0280, M1.0 #### [facility] [address] [place], [address] Albumin/Globulin [Mass ratio] 1.5 {ratio} Normal 0.9-2.4 [facility] Comment on above: Performed By: #### L 7000.1800, L7400.0280, M100.2200 #### [facility] [address] [place], [address] ALK PHOS 54 U/L Normal 35-104 [facility] Comment on above: Performed By: #### L 7000.1800, L7400.0280, .2199 #### [facility] [address] [place], [address] ALT [Catalytic activity/Vol] 15 U/L Normal <=34 [facility] Comment on above: Performed By: #### L 7000.1800, L7400.0280, .2199 #### [facility] [address] [place], [address] AST [Catalytic activity/Vol] 21 U/L Normal <=31 [facility] Comment on above: Performed By: #### L 7000.1800, L7400.0280, #### [facility] [address] [place], [address] BUN/CRE 18.6 RATIO Normal 10-20 [facility] Comment on above: Performed By: #### L 7000.1800, L7400.0280, #### [facility] [address] [place], [address] Calcium [Mass/Vol] 8.2 mg/dL Normal 7.6-11.0 [facility] Comment on above: Performed By: #### L 7000.1800, L7400.0280, #### [facility] [address] [place], [address] Chloride [Moles/Vol] 104 mmol/L Normal 98-108 [facility] Comment on above: Performed By: #### L 7000.1800, L7400.0280, #### [facility] [address] [place], [address] CO2 [Moles/Vol] 21.0 mmol/L Normal 21.0-32.0 [facility] Comment on above: Performed By: #### L 7000.1800, L7400.0280, M100.2200 #### [facility] [address] [place], [address] Creatinine [Mass/Vol] 0.42 mg/dL Low 0.70-1.20 [facility] Comment on above: Performed By: #### L 7000.1800, L7400.0280, M100.2200 #### [facility] [address] [place], [address] GAP 10 Normal 5-15 [facility] Comment on above: Performed By: #### L 7000.1800, L7400.0280, M100.0 #### [facility] [address] [place], [address] GFR/1.73 sq M.predicted among non-blacks MDRD (S/P/Bld) [Vol rate/Area] 132 mL/min/{1.73_m2} Normal >60 [facility] Comment on above: Result Comment: mL/m in/1.73m2 CKD-EPI Creatinine Equation (2020) Performed By: #### L 7000.1800, L7400.0280, M100.0 #### [facility] [address] [place], [address] Globulin (S) [Mass/Vol] 2.3 g/dL Normal 2.2-4.2 [facility] Comment on above: Performed By: #### L 7000.1800, L7400.0280, M100.2200 #### [facility] [address] [place], [address] Glucose [Mass/Vol] 78 mg/dL Normal 70-99 [facility] Comment on above: Performed By: #### L 7000.1800, L7400.0280, M100.2200 #### [facility] [address] [place], [address] Potassium [Moles/Vol] 3.8 mmol/L Normal 3.3-5.1 [facility] Comment on above: Performed By: #### L 7000.1800, L7400.0280, M100.2200 #### [facility] [address] [place], [address] Sodium [Moles/Vol] 136 mmol/L Normal 133-145 [facility] Comment on above: Performed By: #### L 7000.1800, L7400.0280, M100.2200 #### [facility] [address] [place], [address] T BILI < 0.15 Normal 0.00-1.30 [facility] Comment on above: Performed By: #### L 7000.1800, L7400.0280, M100.2200 #### [facility] [address] [place], [address] T PROT 5.9 g/dL Normal 5.9-8.4 [facility] Comment on above: Performed By: #### L 7000.1800, L7400.0280, M100.2200 #### [facility] [address] [place], [address] Urea nitrogen [Mass/Vol] 8 mg/dL Normal 4-19 [facility] Comment on above: Performed By: #### L 7000.1800, L7400.0280, M100.2200 #### [facility] [address] [place], [address] Eosinophil percentageOrdered By: Samm Colbert on 10-17-2024 Eosinophils/100 WBC (Bld) 0.9 % 0-5 [facility] Erythrocyte distribution wid th ratioOrdered By: Samm Colbert on 10-17-2024 Erythrocyte distribution width (RBC) [Ratio] 12.6 % 11.6-14.6 [facility] Erythrocyte distribution wid th standard deviationOrdered By: Samm Colbert on 10-17-2024 Erythrocyte distribution width (RBC) [Ratio] 41.7 fl 35.1-43.9 [facility] Ferritinon 10-17-2024 Ferritin [Mass/Vol] 14 ng/mL Low 22-378 [facility] Comment on above: Performed By: #### L 7000.1800, L7400.0280, M100.2200 #### [facility] [address] [place], [place], [id number] Glomerular filtration rate ( GFR) estimation/1.73 sq m using serum, plasma, or whole bOrdered By: Samm Colbert on 10-17-2024 GFR/1.73 sq M.predicted among non-blacks MDRD (S/P/Bld) [Vol rate/Area] 132 mL/min/{1.73_m2} >60 [facility] Comment on above: mL/min/1.73m2 CKD-EP I Creatinine Equation (2020) Hematocrit Auto (Bld) [Volum e fraction]Ordered By: Samm Colbert on 10-17-2024 Hematocrit (Bld) [Volume fraction] 37.7 % 37-47 [facility] Hemoglobin measurementOrdere d By: Samm Colbert on 10-17-2024 Hemoglobin (Bld) [Mass/Vol] 12.8 g/dL 12.0-15.0 [facility] Immature granulocytes/100 WB C Auto (Bld)Ordered By: Samm Colbert on 10-17-2024 Immature granulocytes/100 WBC (Bld) 0.500 % 0.0-0.9 [facility] Comment on above: IG% - Immature Granu locytes (promyelocytes, myelocytes and metamyelocytes) > 1% indicates that a LEFT SHIFT is Present. Iron measurement (mass/mass) Ordered By: Samm Colbert on 10-17-2024 Iron (Unsp spec) [Mass/Mass] 87 ug/dL 50-170 [facility] Iron+Iron Binding Capacityon 10-17-2024 Iron [Mass/Vol] 87 ug/dL Normal 50-170 [facility] Comment on above: Performed By: #### L 7000.1800, L7400.0280, M100.2200 #### [facility] [address] [place], [address] IRON SATURATION 21.0 Normal 13-59 [facility] Comment on above: Performed By: #### L 7000.1800, L7400.0280, M100.2200 #### [facility] [address] [place], [address] TIBC 425 ug/dL Normal 250-450 [facility] Comment on above: Performed By: #### L 7000.1800, L7400.0280, M100.2200 #### [facility] [address] [place], [address] UIBC 338 ug/dL Normal 228-428 [facility] Comment on above: Performed By: #### L 7000.1800, L7400.0280, M100.2200 #### [facility] [address] [place], [address] LDHon 10-17-2024 LDH 157 U/L Normal 84-246 [facility] Comment on above: Order Comment: 1 Performed By: #### L 7000.1800, L7400.0280, M100.2200 #### [facility] [address] [place], [address] Laboratory - Chemistry and C hemistry - challengeOrdered By: Samm Colbert on 10-17-2024 AST [Catalytic activity/Vol] 21 U/L <32 [facility] Lactate dehydrogenase (LDH) measurementOrdered By: Samm Colbert on 10-17-2024 LDH [Catalytic activity/Vol] 157 U/L 84-246 [facility] MCV (mean corpuscular volume ) determinationOrdered By: Samm Colbert on 10-17-2024 MCV (RBC) [Entitic vol] 91.1 fL 81-99 [facility] Mean corpuscular hemoglobin (MCH) determinationOrdered By: Samm Colbert on 10-17-2024 MCH (RBC) [Entitic mass] 30.9 pg 27.0-32.0 [facility] Mean corpuscular hemoglobin concentration (MCHC) determinationOrdered By: Samm Colbert on 10-17-2024 MCHC (RBC) [Mass/Vol] 34.0 g/dL 32-36 [facility] Mean platelet volume determi nationOrdered By: Samm Colbert on 10-17-2024 Platelet mean volume (Bld) [Entitic vol] 11.9 fL 6.2-12.0 [facility] Monocyte percentageOrdered B y: Samm Colbert on 10-17-2024 Monocytes/100 WBC (Bld) 6.7 % 0-10 [facility] Neutrophil percentageOrdered By: [place] Sayra on 10-17-2024 Neutrophils/100 WBC (Bld) 74.9 % High 47-70 [facility] No Panel InformationOrdered By: Samm Colbert on 10-17-2024 Unsaturated Iron Binding Capacity 338 ug/dL 228-428 [facility] Nucleated red blood cell per centageOrdered By: Samm Colbert on 10-17-2024 Nucleated RBC/100 WBC (Bld) [Ratio] 0 % 0-5 [facility] Oncology Visit Reporton 10-01 Oncology Visit Report [facility] [place] [facility] [address] [place] [address] OFFICE VISIT Date of Service: 10/17/24 09 MR#: [id number] Acct: [id number] Name: MARIBEL CROCKETT Rep #: [id number] : 1990 From: Samm Colbert MD Age/Sex: 34/F Location: [facility] Status: Signed HPI Subjective Date of Service 10/17/24 Chief Complaint Referred for thrombocytopenia. History of Present Illness 34-year-old woman was found to have low platelets, she is now 29 weeks and referred for further evaluation. She has had low platelets for about 4/5 years, they are always above 100,000. With all her other pregnancies platelets have been low but has never needed platelet transfusion. Denies family history, has bleeding from the left nostril on and off. [facility] Medical History Varicose vein vulva-delivered FH: breast cancer Cystitis during , antepartum False labor Gestational thrombocytopenia 30 weeks gestation of Surgical History H/O basal cell carcinoma excision History of surgery History of surgery History of surgery Family History Grandmother Breast cancer, Onset Age: 65 Maternal- mets to liver Grandfather Myocardial infarction, Onset Age: 78 Paternal Social History adopted: No household members: spouse and children number of children: 2 current occupational status: unemployed current occupation: [employer] pets and animals: Yes pets and animals: dog(s) history of recent travel: No sexually active: Yes Smoking Status: Never smoker alcohol intake: current alcohol intake frequency: a few times a month details: Not while substance use type: does not use well-balanced diet: daily or most days caffeine: Yes Type: coffee Number of servings: 2 eating out: rarely or never during the past year weight has: remained stable what type of physical activity do you participate in: none ramesh/congregation: Gnosticism seatbelt use: always do you feel safe at home: Yes 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 Female Reproductive History Menstrual Ab induced: 0 Ab spontaneous: 0 Ectopics: 0 ROS Constitutional Constitutional: Reports systems reviewed and no addt'l complaints, except as documented Eyes Eyes: Reports systems reviewed and no addt'l complaints, except as documented ENT HEENT: Reports systems reviewed and no addt'l complaints, except as documented Cardiovascular Cardiovascular: Reports systems reviewed and no addt'l complaints, except as documented Respiratory/Chest Respiratory/Chest: Reports systems reviewed and no addt'l complaints, except as documented Gastrointestinal Gastrointestinal: Reports systems reviewed and no addt'l complaints, except as documented Genitourinary Genitourinary: Reports systems reviewed and no addt'l complaints, except as documented Musculoskeletal Musculoskeletal: Reports systems reviewed and no addt'l complaints, except as documented Integumentary Integumentary: Reports systems reviewed and no addt'l complaints, except as documented Neurologic Neurologic: Reports systems reviewed and no addt'l complaints, except as documented Psychiatric Psychiatric: Reports systems reviewed and no addt'l complaints, except as documented Endocrine Endocrinology: Reports systems reviewed and no addt'l complaints, except as documented Hematologic/Lymphatic Hematologic/Lymphatic: Reports systems reviewed and no addt'l complaints, except as documented Allergic/Immunologic Allergic/Immunologic: Reports systems reviewed and no addt'l complaints, except as documented Intake Vital Signs 10/04/24 10:35 10/17/24 09:35 10/17/24 09:36 Height 5 ft 7.5 in 5 ft 7.5 in 5 ft 7.5 in Weight: 63.049 kg 64.212 kg BMI 21.4 21.8 BP 109/70 90/59 L Blood Pressure Location Lt brachial Position Sitting Respiration 18 Pulse 82 Pulse Source Monitor Temp 98.2 F Temperature Source Temporal Artery Pulse Oximetry (%) 98 Oxygen Delivery Method room air Intake Is patient in pain?: Yes ( pain) Pain scale (1-10): 3 Allergies No Known Allergies Allergy (Verified 10/17/24 09:33) Medications ???Medication ???Instructions ???Recorded ???Confirmed ???Type PNV 153-FA 400 mcg-om3 35 mg-dha tab PO 06/02/24 10/17/24 History 25 mg-epa 5 mg-fish oil chew tablet amoxicillin 500 mg tablet 500 mg PO TID 28 days #84 tabs 03/2710/17/24 Rx Central Venous Access Central Venous Access: No Exam Physical Exam Const alert, oriented x3 and no apparent distress HEENT normocephalic, exter (more content not included)... Normal [facility] Platelet countOrdered By: Aidee Colbert on 10-17-2024 Platelets (Bld) [#/Vol] 105 10*3/uL Low 150-450 [facility] Potassium measurement (mass/ volume)Ordered By: Samm Colbert on 10-17-2024 Potassium (Unsp spec) [Mass/Vol] 3.8 mmol/L 3.3-5.1 [facility] RBC Auto (Bld) [#/Vol]Ordere d By: Samm Colbert on 10-17-2024 RBC (Bld) [#/Vol] 4.14 10*6/uL Low 4.2-5.4 [facility] Serum creatinine measurement (mass/volume)Ordered By: Samm Colbert on 10-17-2024 Creatinine [Mass/Vol] 0.42 mg/dL Low 0.70-1.20 [facility] Serum globulin measurementOr dered By: Samm Colbert on 10-17-2024 Globulin (S) [Mass/Vol] 2.3 g/dL 2.2-4.2 [facility] Serum glucose measurement (m ass/volume)Ordered By: Samm Colbert on 10-17-2024 Glucose [Mass/Vol] 78 mg/dL 70-99 [facility] Serum or plasma alanine elizondo otransferase (ALT) measurementOrdered By: Samm Colbert on 10-17-2024 ALT [Catalytic activity/Vol] 15 U/L <35 [facility] Serum or plasma albumin kourtney urement (mass/volume)Ordered By: Samm Colbert on 10-17-2024 Albumin [Mass/Vol] 3.5 g/dL 3.5-5.0 [facility] Serum or plasma albumin/glob ulin mass ratioOrdered By: Samm Colbert on 10-17-2024 Albumin/Globulin [Mass ratio] 1.5 {ratio} 0.9-2.4 [facility] Serum or plasma alkaline nhung sphatase measurementOrdered By: Samm Colbert on 10-17-2024 ALP [Catalytic activity/Vol] 54 U/L 35-104 [facility] Serum or plasma calcium kourtney urement (mass/volume)Ordered By: Samm Colbert on 10-17-2024 Calcium [Mass/Vol] 8.2 mg/dL 7.6-11.0 [facility] Serum or plasma ferritin mary surement (mass/volume)Ordered By: Samm Colbert on 10-17-2024 Ferritin [Mass/Vol] 14 ng/mL Low 22-378 [facility] Serum or plasma iron saturat ion measurement (mass fraction)Ordered By: Samm Colbert on 10-17-2024 Iron saturation [Mass fraction] 21.0 % 13-59 [facility] Serum or plasma urea nitroge n measurement (mass/volume)Ordered By: Samm Colbert on 10-17-2024 Urea nitrogen [Mass/Vol] 8 mg/dL 4-19 [facility] Sodium levelOrdered By: Carlos Colbert on 10-17-2024 Sodium [Moles/Vol] 136 mmol/L 133-145 [facility] Total proteinOrdered By: Gilmer Colbert on 10-17-2024 Protein [Mass/Vol] 5.9 g/dL 5.9-8.4 [facility] Vitamin B12on 10-17-2024 Cobalamin (Vitamin B12) [Mass/Vol] 523 pg/mL Normal 180-914 [facility] Comment on above: Performed By: #### L 7000.1800, L7400.0280, M1 #### [facility] [address] [place], [place], [id number] Vitamin B12 ser/plasOrdered By: Samm Colbert on 10-17-2024 Cobalamin (Vitamin B12) [Mass/Vol] 523 pg/mL 180-914 [facility] White blood cell (WBC) count Ordered By: Samm Colbert on 10-17-2024 WBC (Bld) [#/Vol] 9.3 10*3/uL 4.4-11.0 [facility] Urine Cultureon 10-11-2024 URC #2 FORMERLY [facility]. Susceptibility not normally performed on this organism. Urine Culture Urine Culture Urine Culture Urine Culture Urine Culture Streptococcus mitis/ oralis [place] Count 11,000-25,000 [place] odontolyticus [place] odontolyticus Streptococcus mitis/ oralis: REACTION Ampicillin Islt [place] <=0.25 S Penicillin G Islt [place] 0.12 Cefotaxime Islt [place] <=0.12 S cefTRIAXone Islt [place] <=0.12 S Linezolid Islt [place] <=2 S Vancomycin Islt [place] 0.5 S Normal [facility] Comment on above: Performed By: #### L 7000.1800, L7400.0280, M100.2200 #### [facility] [address] [place], [address] Laboratory - Chemistry and C hemistry - challengeOrdered By: Kamla Zheng on 10-04-2024 Bilirubin Ql (U) Negative [facility] Glucose Ql (U) Negative [facility] Ketones Ql (U) Negative [facility] pH (U) 8.0 [pH] [facility] Specific gravity (U) [Rel density] 1.010 [facility] Urobilinogen (U) [Mass/Vol] Negative [facility] - Hematology and Cell countsOrdered By: Kamla Zheng on 10-04-2024 Hemoglobin Ql (U) Negative [facility] - Specimen inform ationOrdered By: Kamla Zheng on 10-04-2024 Clarity (U) Cloudy [facility] Color (U) YELLOW [facility] - UrinalysisOrder ed By: Kamla Zheng on 10-04-2024 Nitrite Ql (U) Negative [facility] Protein Ql (U) Negative [facility] No Panel InformationOrdered By: Kamla Zheng on 10-04-2024 Urine Leukocytes Positive [facility] Urine Non-Hemolyzed Blood Negative [facility] 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 Reporton 10-04-2024 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 prolapse Inspector Cold Working Required: No Is patient in pain?: No Allergies No Known Allergies Allergy (Verified 10/04/24 11:24) Medications ???Medication ???Instructions ???Recorded ???Confirmed ???Type PNV 153-FA 400 mcg-om3 35 mg-dha tab PO 06/02/24 10/04/24 History 25 mg-epa 5 mg-fish oil chew tablet ondansetron HCl 4 mg tablet 4 mg PO Q8H PRN 06/02/24 10/04/24 History nitrofurantoin 100 mg PO BID 7 days #14 caps 08/2510/04/24 Rx monohydrate/macrocrystals 100 mg capsule (Macrobid) Last Menstrual Period: 03/30/24 Zika: Zika virus screening: Negative : No PFSH PFSH Medical History Varicose vein vulva-delivered FH: breast cancer Cystitis during , antepartum False labor Gestational thrombocytopenia 30 weeks gestation of Surgical History H/O basal cell carcinoma excision History of surgery History of surgery History of surgery Family History Grandmother Breast cancer, Onset Age: 65 Maternal- mets to liver Grandfather Myocardial infarction, Onset Age: 78 Paternal Social History adopted: No household members: spouse and children number of children: 2 current occupational status: unemployed current occupation: [employer] pets and animals: Yes pets and animals: dog(s) history of recent travel: No sexually active: Yes Smoking Status: Never smoker alcohol intake: current alcohol intake frequency: a few times a month details: Not while substance use type: does not use well-balanced diet: daily or most days caffeine: Yes Type: coffee Number of servings: 2 eating out: rarely or never during the past year weight has: remained stable what type of physical activity do you participate in: none ramesh/congregation: [employer] seatbelt use: always do you feel safe at home: Yes 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 Date Name GA/Weeks Outcome Route Bth Weight Gen Labor Lgth Anesthesia Del Locatn Provider FOB 08/24/19 Jose Elykadi 36 live - vacuum 6lb 8 oz Female 12 epidural [facility] Neri Rush 02/22/21 Ivette 39 live - full term 6# 8oz Female epidural [facility] Delivery Date: 08/24/19 Last Updated by: Carlee He MD pprom, labor, chorioamnionitis Delivery Date: 02/22/21 Last Updated by: Patricia Nichols iol, , prolapse(vulvo-vaginal varicosity) at 26 wks and two more times after- no problems since HPI Possible Prolapse 26w6d per Details: MARIBEL CROCKETT is a 34 year old who presents for routine OB visit. OB Visit MARGO Calculator Estimated Delivery Date Method Current WG Current Estimate 01/04/25 LMP (Uncertain) 26w 6d Other Estimates 01/02/25 Ultrasound #1 27w 1d Expected Delivery Route/Plan Labor Preferences- CB/BF classes: no labor support person: Victor Manuel labor intervention preferences: [] pain management options preferred: discussed cut cord/dad catch: cord : yes PP control planned: discussed discussed possible routes of delivery and associated risks: [] special requests: [] Specific Issue/Plans Covid status: [] Flu vaccine: [] Tdap vaccine: [] Rhogam: [] LARC form signed: [] Problem list reviewed and updated with the most current plan of care details and appropriate orders placed. Relevant counseling for the gestational age provided. Continue routine care and follow up unless otherwise noted in visit notes/problem list details Initial Weight: Not Recorded Date -???-???-???-???-???-???- ???-???-???-???-???-???- EGA Weight BP Urine Prot -???-???-???-???-???-???- ???-???-???-???-???-???- Glucose FHR FuHt Pres Dilation -???-???-???-???-???-???- ???-???-???-???-???-???- (more content not included)... Normal [facility] Urine cultureOrdered By: Elias Zheng on 10-04-2024 Bacteria identified Cx Nom (U) Streptococcus mitis/ oralis Abnormal [facility] Bacteria identified Cx Nom (U) [place] odontolyticus Abnormal [facility] Absolute lymphocyte countOrd ered By: Kecia Faye on 10-02-2024 Lymphocytes Auto (Unsp spec) [#/Vol] 1.49 10*3/uL 0.83-4.51 [facility] Absolute neutrophil countOrd ered By: Kecia Faye on 10-02-2024 Neutrophils (Bld) [#/Vol] 7.9 10*3/uL High 2.0-7.7 [facility] Automated lymphocyte count a s percentage of total leukocytesOrdered By: Kecia Yunier on 10-02-2024 Lymphocytes/100 WBC Auto (Unsp spec) 14.8 % Low 19-41 [facility] Basophil percentageOrdered B y: Kecia Faye on 10-02-2024 Basophils/100 WBC (Bld) 0.3 % 0-1 [facility] CBC W/Diff, Automatedon Absolute Lymph 1.49 X10 3/uL Normal 0.83-4.51 [facility] Comment on above: Performed By: #### L 7000.1800, L7400.0280, M100.2200 #### [facility] [address] [place], [address] Absolute Neut 7.9 X10 3/uL High 2.0-7.7 [facility] Comment on above: Performed By: #### L 7000.1800, L7400.0280, M100.2200 #### [facility] [address] [place], [address] Basophils/100 WBC (Bld) 0.3 % Normal 0-1 [facility] Comment on above: Performed By: #### L 7000.1800, L7400.0280, M100.2200 #### [facility] [address] [place], [address] Eosinophils/100 WBC (Bld) 0.8 % Normal 0-5 [facility] Comment on above: Performed By: #### L 7000.1800, L7400.0280, M100.2200 #### [facility] [address] [place], [address] Erythrocyte distribution width (RBC) [Ratio] 12.3 % Normal 11.6-14.6 [facility] Comment on above: Performed By: #### L 7000.1800, L7400.0280, 0 #### [facility] [address] [place], [address] Hematocrit (Bld) [Volume fraction] 36.7 % Low 37-47 [facility] Comment on above: Performed By: #### L 7000.1800, L7400.0280, #### [facility] [address] [place], [address] Hemoglobin (Bld) [Mass/Vol] 12.4 g/dL Normal 12.0-15.0 [facility] Comment on above: Performed By: #### L 7000.1800, L7400.0280, #### [facility] [address] [place], [address] IG% 0.900 Normal 0.0-0.9 [facility] Comment on above: Result Comment: IG% - Immature Granulocytes (promyelocytes, myelocytes and metamyelocytes) > 1% indicates that a LEFT SHIFT is Present. Performed By: #### L 7000.1800, L7400.0280, #### [facility] [address] [place], [address] Lymphocytes/100 WBC (Bld) 14.8 % Low 19-41 [facility] Comment on above: Performed By: #### L 7000.1800, L7400.0280, #### [facility] [address] [place], [address] MCH (RBC) [Entitic mass] 31.1 pg Normal 27.0-32.0 [facility] Comment on above: Performed By: #### L 7000.1800, L7400.0280, M100.2200 #### [facility] [address] [place], [address] MCHC (RBC) [Mass/Vol] 33.8 g/dL Normal 32-36 [facility] Comment on above: Performed By: #### L 7000.1800, L7400.0280, M100.2200 #### [facility] [address] [place], [address] MCV (RBC) [Entitic vol] 92.0 fL Normal 81-99 [facility] Comment on above: Performed By: #### L 7000.1800, L7400.0280, M100.0 #### [facility] [address] [place], [address] Monocytes/100 WBC (Bld) 5.1 % Normal 0-10 [facility] Comment on above: Performed By: #### L 7000.1800, L7400.0280, M100.2200 #### [facility] [address] [place], [address] Neutrophils/100 WBC (Bld) 78.1 % High 47-70 [facility] Comment on above: Performed By: #### L 7000.1800, L7400.0280, M100.0 #### [facility] [address] [place], [address] Nucleated RBC (Bld) [#/Vol] 0 10*3/uL Normal 0-5 [facility] Comment on above: Performed By: #### L 7000.1800, L7400.0280, M100.2200 #### [facility] [address] [place], [address] Platelet mean volume (Bld) [Entitic vol] 12.5 fL High 6.2-12.0 [facility] Comment on above: Performed By: #### L 7000.1800, L7400.0280, M100.2200 #### [facility] [address] [place], [address] Platelets (Bld) [#/Vol] 103 10*3/uL Low 150-450 [facility] Comment on above: Performed By: #### L 7000.1800, L7400.0280, M100.2200 #### [facility] [address] [place], [address] RBC (Bld) [#/Vol] 3.99 10*6/uL Low 4.2-5.4 [facility] Comment on above: Performed By: #### L 7000.1800, L7400.0280, M100.2200 #### [facility] [address] [place], [address] RDW SD 41.4 fl Normal 35.1-43.9 [facility] Comment on above: Performed By: #### L 7000.1800, L7400.0280, M100.2200 #### [facility] [address] [place], [address] WBC (Bld) [#/Vol] 10.1 10*3/uL Normal 4.4-11.0 [facility] Comment on above: Performed By: #### L 7000.1800, L7400.0280, M100.2200 #### [facility] [address] [place], [address] Eosinophil percentageOrdered By: Kecia Faye on 10-02-2024 Eosinophils/100 WBC (Bld) 0.8 % 0-5 [facility] Erythrocyte distribution wid th ratioOrdered By: Kecia Faye on 10-02-2024 Erythrocyte distribution width (RBC) [Ratio] 12.3 % 11.6-14.6 [facility] Erythrocyte distribution wid th standard deviationOrdered By: Kecia Faye on 10-02-2024 Erythrocyte distribution width (RBC) [Ratio] 41.4 fl 35.1-43.9 [facility] Glucose Challenge Gest 1H 50 boogie 10-02-2024 GLU GEST 50g 1H 110 mg/dL Normal 70-140 [facility] Comment on above: Performed By: #### L 7000.1800, L7400.0280, M100.2200 #### [facility] [address] [place], [place], [id number] Glucose measurement at 2 james rs post-dose gestational glucose tolerance testOrdered By: Kecia Faye on 10-02-2024 Glucose [Mass/Vol] 110 mg/dL 70-140 [facility] HIVon 10-02-2024 HIV Non-Reactive Normal Nonreactive [facility] Comment on above: Result Comment: Non- Reactive Reactive Repeatedly reactive samples must be confirmed according to CDC recommended confirmatory algorithms. The subresults for either HIVAG or AHIV can be used as an aid in the selection of the confirmation algorithm for reactive samples. Send out specimens with Reactive results to [facility] for confirmation. Order the HIV antibody detection and differentiation: lc#[id number] Performed By: #### L 7000.1800, L7400.0280, M100.2200 #### [facility] [address] [facility] [place], [place], [id number] Hematocrit Auto (Bld) [Volum e fraction]Ordered By: Kecia Faye on 10-02-2024 Hematocrit (Bld) [Volume fraction] 36.7 % Low 37-47 [facility] Hemoglobin measurementOrdere d By: Kecia Faye on 10-02-2024 Hemoglobin (Bld) [Mass/Vol] 12.4 g/dL 12.0-15.0 [facility] Immature granulocytes/100 WB C Auto (Bld)Ordered By: Kecia Faye on 10-02-2024 Immature granulocytes/100 WBC (Bld) 0.900 % 0.0-0.9 [facility] Comment on above: IG% - Immature Granu locytes (promyelocytes, myelocytes and metamyelocytes) > 1% indicates that a LEFT SHIFT is Present. Laboratory - Chemistry and C hemistry - challengeOrdered By: Kecia Faye on 10-02-2024 Glucose Ql (U) Negative [facility] - UrinalysisOrder ed By: Kecia Faye on 10-02-2024 Protein Ql (U) Negative [facility] MCV (mean corpuscular volume ) determinationOrdered By: Kecia Faye on 10-02-2024 MCV (RBC) [Entitic vol] 92.0 fL 81-99 [facility] Mean corpuscular hemoglobin (MCH) determinationOrdered By: Kecia Faye on 10-02-2024 MCH (RBC) [Entitic mass] 31.1 pg 27.0-32.0 [facility] Mean corpuscular hemoglobin concentration (MCHC) determinationOrdered By: Kecia Faye on 10-02-2024 MCHC (RBC) [Mass/Vol] 33.8 g/dL 32-36 [facility] Mean platelet volume determi nationOrdered By: Kecia Faye on 10-02-2024 Platelet mean volume (Bld) [Entitic vol] 12.5 fL High 6.2-12.0 [facility] Monocyte percentageOrdered B y: Kecia Faye on 10-02-2024 Monocytes/100 WBC (Bld) 5.1 % 0-10 [facility] Neutrophil percentageOrdered By: Kecia Faye on 10-02-2024 Neutrophils/100 WBC (Bld) 78.1 % High 47-70 [facility] No Panel InformationOrdered By: Kecia Faye on 10-02-2024 HIV (1&2) Antibody Non-Reactive Nonreactive [facility] Comment on above: Non-ReactiveReactive Repeatedly reactive samples must be confirmed according to CDC recommended confirmatory algorithms. The subresults for either HIVAG or AHIV can be used as an aid in the selection of the confirmation algorithm for reactive samples.Send out specimens with Reactive results to [facility] for confirmation.Order the HIV antibody detection and differentiation: lc#[id number] Nucleated red blood cell per centageOrdered By: Kecia Faye on 10-02-2024 Nucleated RBC/100 WBC (Bld) [Ratio] 0 % 0-5 [facility] 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 Reporton 10-02-2024 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 Report [facility]'[address], [address] [place] [address] OFFICE VISIT Date of Service: 10/02/24 MR#: [id number] Acct: [id number] Name: MARIBEL CROCKETT Rep #: [id number] : 1990 Provider: LEYLA Masters ams Age/Sex: 34/F Location: [facility] Status: Signed Intake Vital Signs 08/09/24 15:05 09/06/24 14:13 10/02/24 14:24 Height 5 ft 7.5 in 5 ft 7.5 in 5 ft 7.5 in Weight: 139 lb 4 oz BMI 21.4 BP 96/65 Intake Visit Reasons: 27 WK OB/GLUCOSE Chief Complaint: 27wk OB Inspector Cold Working Required: No Is patient in pain?: No Allergies No Known Allergies Allergy (Verified 10/02/24 14:26) Medications ???Medication ???Instructions ???Recorded ???Confirmed ???Type PNV 153-FA 400 mcg-om3 35 mg-dha tab PO 06/02/24 10/02/24 History 25 mg-epa 5 mg-fish oil chew tablet ondansetron HCl 4 mg tablet 4 mg PO Q8H PRN 06/02/24 10/02/24 History Last Menstrual Period: 03/30/24 : No Have you fallen in the past year?: No PFSH PFSH Medical History Varicose vein vulva-delivered FH: breast cancer Cystitis during , antepartum False labor Gestational thrombocytopenia 30 weeks gestation of Surgical History H/O basal cell carcinoma excision History of surgery History of surgery History of surgery Family History Grandmother Breast cancer, Onset Age: 65 Maternal- mets to liver Grandfather Myocardial infarction, Onset Age: 78 Paternal Social History adopted: No household members: spouse and children number of children: 2 current occupational status: unemployed current occupation: [employer] pets and animals: Yes pets and animals: dog(s) history of recent travel: No sexually active: Yes Smoking Status: Never smoker alcohol intake: current alcohol intake frequency: a few times a month details: Not while substance use type: does not use well-balanced diet: daily or most days caffeine: Yes Type: coffee Number of servings: 2 eating out: rarely or never during the past year weight has: remained stable what type of physical activity do you participate in: none ramesh/congregation: Gnosticism seatbelt use: always do you feel safe at home: Yes 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 Date Name GA/Weeks Outcome Route Bth Weight Infant Gen Labor Lgth Anesthesia Del Locatn Provider FOB 08/24/19 [place] 36 live - vacuum 6lb 8 oz Female 12 epidural [facility] Neri Rush 02/22/21 [place] 38 live - full term 6# 8oz Female epidural [facility] Delivery Date: 08/24/19 Last Updated by: Carlee He MD pprom, labor, chorioamnionitis Delivery Date: 02/22/21 Last Updated by: Patricia Nichols iol, , prolapse(vulvo-vaginal varicosity) at 26 wks and two more times after- no problems since HPI 27 WK OB/GLUCOSE Details: MARIBEL CROCKETT is a 34 year old who presents for routine OB visit. OB Visit [facility] Calculator Estimated Delivery Date Method Current WG Current Estimate 01/04/25 LMP (Uncertain) 26w 4d Other Estimates 01/02/25 Ultrasound #1 26w 6d Expected Delivery Route/Plan Labor Preferences- CB/BF classes: no labor support person: Victor Manuel labor intervention preferences: [] pain management options preferred: discussed cut cord/dad catch: cord : yes PP control planned: discussed discussed possible routes of delivery and associated risks: [] special requests: [] Specific Issue/Plans Covid status: [] Flu vaccine: [] Tdap vaccine: [] Rhogam: [] LARC form signed: [] Problem list reviewed and updated with the most current plan of care details and appropriate orders placed. Relevant counseling for the gestational age provided. Continue routine care and follow up unless otherwise noted in visit notes/problem list details Initial Weight: Not Recorded Date -???-???-???-???-???-???- ???-???-???-???-???-???- EGA Weight BP Urine Prot -???-???-???-???-???-???- ???-???-???-???-???-???- Glucose FHR FuHt Pres Dilation -???-???-???-???-???-???- ???-???-???-???-???-???- Effaced St Visit Note 06/09/24 -???-???-???-???-???-???- ???-???-???-???-???-???- 10w 1d 121 lb 6 oz 116/80 -???-???-???-???-???-???- ???-???-???-???-???-???- 175 -???-???-???-???-???-???- ???-???-???-?? (more content not included)... Normal [facility] Platelet countOrdered By: Rian Faye on 10-02-2024 Platelets (Bld) [#/Vol] 103 10*3/uL Low 150-450 [facility] RBC Auto (Bld) [#/Vol]Ordere d By: Kecia Faye on 10-02-2024 RBC (Bld) [#/Vol] 3.99 10*6/uL Low 4.2-5.4 [facility] Syphilis Antibodieson 2024 Syphilis Abs Non-Reactive Normal Nonreactive [facility] Comment on above: Performed By: #### L 7000.1800, L7400.0280, M100.2200 #### [facility] [address] [place], [place], [id number] Type AND Screenon 10-02-2024 Ab SCREEN GEL Negative Normal [facility] Comment on above: Order Comment: PN Performed By: #### L 7000.1800, L7400.0280, M100.2200 #### [facility] [address], [address] White blood cell (WBC) count Ordered By: Kecia Faye on 10-02-2024 WBC (Bld) [#/Vol] 10.1 10*3/uL 4.4-11.0 [facility] - Chemistry and C hemistry - challengeOrdered By: Kamla Zheng on 09-06-2024 Glucose Ql (U) Negative [facility] - UrinalysisOrder ed By: Kamla Zheng on 09-06-2024 Protein Ql (U) Negative [facility] 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 Reporton 09-06-2024 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 Report [facility] [address], [address] [place] [address] OFFICE VISIT Date of Service: 09/06/24 MR#: [id number] Acct: [id number] Name: MARIBEL CROCKETT Rep #: [id number] : 1990 Provider: MITZI johnson Age/Sex: 34/F Location: [facility] Status: Signed Intake Vital Signs 07/14/24 13:29 08/09/24 15:05 09/06/24 14:13 Height 5 ft 7.5 in 5 ft 7.5 in 5 ft 7.5 in Weight: 134 lb 8 oz BMI 20.7 BP 106/70 Intake Visit Reasons: 23 wk ob Chief Complaint: 23 Week OB Inspector Cold Working Required: No Is patient in pain?: No Allergies No Known Allergies Allergy (Verified 09/06/24 14:13) Medications ???Medication ???Instructions ???Recorded ???Confirmed ???Type PNV 153-FA 400 mcg-om3 35 mg-dha tab PO 06/02/24 09/06/24 History 25 mg-epa 5 mg-fish oil chew tablet ondansetron HCl 4 mg tablet 4 mg PO Q8H PRN 06/02/24 09/06/24 History Last Menstrual Period: 03/30/24 Zika: Zika virus screening: Negative : No PFSH PFSH Medical History Varicose vein vulva-delivered FH: breast cancer Cystitis during , antepartum False labor Gestational thrombocytopenia 30 weeks gestation of Surgical History H/O basal cell carcinoma excision History of surgery History of surgery History of surgery Family History Grandmother Breast cancer, Onset Age: 65 Maternal- mets to liver Grandfather Myocardial infarction, Onset Age: 78 Paternal Social History adopted: No household members: spouse and children number of children: 2 current occupational status: unemployed current occupation: [employer] pets and animals: Yes pets and animals: dog(s) history of recent travel: No sexually active: Yes Smoking Status: Never smoker alcohol intake: current alcohol intake frequency: a few times a month details: Not while substance use type: does not use well-balanced diet: daily or most days caffeine: Yes Type: coffee Number of servings: 2 eating out: rarely or never during the past year weight has: remained stable what type of physical activity do you participate in: none ramesh/congregation: Gnosticism seatbelt use: always do you feel safe at home: Yes 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 Date Name GA/Weeks Outcome Route Bth Weight Gen Labor Lgth Anesthesia Del Locatn Provider FOB 08/24/19 [place] 36 live - vacuum 6lb 8 oz Female 12 epidural [facility] Jg Rush 02/22/21 [place] 38 live - full term 6# 8oz Female epidural [facility] Cal Rush Delivery Date: 08/24/19 Last Updated by: Carlee He MD pprom, labor, chorioamnionitis Delivery Date: 02/22/21 Last Updated by: Patricia Nichols iol, , prolapse(vulvo-vaginal varicosity) at 26 wks and two more times after- no problems since HPI 23 wk ob Details: MARIBEL CROCKETT is a 34 year old who presents for routine OB visit. OB Visit [facility] Calculator Estimated Delivery Date Method Current WG Current Estimate 01/04/25 LMP (Uncertain) 22w 6d Other Estimates 01/02/25 Ultrasound #1 23w 1d Expected Delivery Route/Plan Labor Preferences- CB/BF classes: no labor support person: Victor Manuel labor intervention preferences: [] pain management options preferred: discussed cut cord/dad catch: cord : yes PP control planned: discussed discussed possible routes of delivery and associated risks: [] special requests: [] Specific Issue/Plans Covid status: [] Flu vaccine: [] Tdap vaccine: [] Rhogam: [] LARC form signed: [] Problem list reviewed and updated with the most current plan of care details and appropriate orders placed. Relevant counseling for the gestational age provided. Continue routine care and follow up unless otherwise noted in visit notes/problem list details Initial Weight: Not Recorded Date -???-???-???-???-???-???- ???-???-???-???-???-???- EGA Weight BP Urine Prot -???-???-???-???-???-???- ???-???-???-???-???-???- Glucose FHR FuHt Pres Dilation -???-???-???-???-???-???- ???-???-???-???-???-???- Effaced St Visit Note 06/09/24 -???-???-???-???-???-???- ???-???-???-???-???-???- 10w 1d 121 lb 6 oz 116/80 -???-???-???-???-???-???- ???-???-???-???-???-???- 175 -???-???-???-???-???-???- ?? (more content not included)... Normal [facility] - Chemistry and C hemistry - challengeOrdered By: Citlalli Cabrera on 08-09-2024 Glucose Ql (U) Negative [facility] - UrinalysisOrder ed By: Citlalli Cabrera on 08-09-2024 Protein Ql (U) Negative [facility] 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 Reporton 08-09-2024 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 Report [facility] [address], [address] [place] [address] OFFICE VISIT Date of Service: 08/09/24 MR#: [id number] Acct: [id number] Name: MARIBEL CROCKETT Rep #: [id number] : 1990 Provider: Dr. Citlalli acuna MD Age/Sex: 34/F Location: [facility] Status: Signed Intake Vital Signs 07/14/24 13:29 08/09/24 15:03 08/09/24 15:05 Height 5 ft 7.5 in 5 ft 7.5 in 5 ft 7.5 in Weight: 130 lb BMI 20.0 BP 103/65 Intake Visit Reasons: 19wk ob Inspector Cold Working Required: No Is patient in pain?: No Allergies No Known Allergies Allergy (Verified 08/09/24 15:04) Medications ???Medication ???Instructions ???Recorded ???Confirmed ???Type PNV 153-FA 400 mcg-om3 35 mg-dha tab PO 06/02/24 08/09/24 History 25 mg-epa 5 mg-fish oil chew tablet ondansetron HCl 4 mg tablet 4 mg PO Q8H PRN 06/02/24 08/09/24 History Last Menstrual Period: 03/30/24 Zika: Zika virus screening: Negative : No PFSH PFSH Medical History Varicose vein vulva-delivered FH: breast cancer Cystitis during , antepartum False labor Gestational thrombocytopenia 30 weeks gestation of Surgical History H/O basal cell carcinoma excision History of surgery History of surgery History of surgery Family History Grandmother Breast cancer, Onset Age: 65 Maternal- mets to liver Grandfather Myocardial infarction, Onset Age: 78 Paternal Social History adopted: No household members: spouse and children number of children: 2 current occupational status: unemployed current occupation: [employer] pets and animals: Yes pets and animals: dog(s) history of recent travel: No sexually active: Yes Smoking Status: Never smoker alcohol intake: current alcohol intake frequency: a few times a month details: Not while substance use type: does not use well-balanced diet: daily or most days caffeine: Yes Type: coffee Number of servings: 2 eating out: rarely or never during the past year weight has: remained stable what type of physical activity do you participate in: none ramesh/congregation: Gnosticism seatbelt use: always do you feel safe at home: Yes 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 Date Name GA/Weeks Outcome Route Bth Weight Gen Labor Lgth Anesthesia Del Locat[facility] Provider [facility] 6[facility] 8 [facility] Female 12 epidural [facility] Ho titi Rush 02/22/21 [place] 38 live - full term 6# 8oz Female epidural [facility] Cal Rush Delivery Date: 08/24/19 Last Updated by: Carlee He MD pprom, labor, chorioamnionitis Delivery Date: 02/22/21 Last Updated by: Patriica Nichols iol, , prolapse(vulvo-vaginal varicosity) at 26 wks and two more times after- no problems since HPI 19wk ob Details: MARIBEL CROCKETT is a 34 year old who presents for routine OB visit. OB Visit [facility] Calculator Estimated Delivery Date Method Current WG Current Estimate 01/04/25 LMP (Uncertain) 18w 6d Other Estimates 01/02/25 Ultrasound #1 19w 1d Expected Delivery Route/Plan Labor Preferences- CB/BF classes: [] labor support person: [] labor intervention preferences: [] pain management options preferred: [] cut cord/dad catch: [] : [] PP control planned: [] discussed possible routes of delivery and associated risks: [] special requests: [] Specific Issue/Plans Covid status: [] Flu vaccine: [] Tdap vaccine: [] Rhogam: [] LARC form signed: [] Problem list reviewed and updated with the most current plan of care details and appropriate orders placed. Relevant counseling for the gestational age provided. Continue routine care and follow up unless otherwise noted in visit notes/problem list details Initial Weight: Not Recorded Date -???-???-???-???-???-???- ???-???-???-???-???-???- EGA Weight BP Urine Prot -???-???-???-???-???-???- ???-???-???-???-???-???- Glucose FHR FuHt Pres Dilation -???-???-???-???-???-???- ???-???-???-???-???-???- Effaced St Visit Note 06/09/24 -???-???-???-???-???-???- ???-???-???-???-???-???- 10w 1d 121 lb 6 oz 116/80 -???-???-???-???-???-???- ???-???-???-???-???-???- 175 -???-???-???-???-???-???- ???-???-???-???-???-???- SM- CRL 3.5 cm cons with LMP 03 (more content not included)... Normal [facility] - Chemistry and C hemistry - challengeOrdered By: Rosalba Mike on 07-14-2024 Glucose Ql (U) Negative [facility] - UrinalysisOrder ed By: Rosalba Mike on 07-14-2024 Protein Ql (U) Negative [facility] 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 Reporton 07-14-2024 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 Report [facility] [address], [address] [place] [address] OFFICE VISIT Date of Service: 07/14/24 MR#: [id number] Acct: [id number] Name: MARIBEL CROCKETT Rep #: [id number] : 1990 Provider: Dr. Rosalba Mata DO Age/Sex: 34/F Location: [facility] Status: Signed Intake Vital Signs 02/21/21 15:13 06/09/24 10:15 07/14/24 13:28 07/14/24 13:29 Height 5 ft 7.5 in 5 ft 7.5 in 5 ft 7.5 in 5 ft 7.5 in Weight: 126 lb 2 oz BMI 19.4 BP 115/75 Intake Visit Reasons: 15 wk OB Inspector Cold Working Required: No Is patient in pain?: No Allergies No Known Allergies Allergy (Verified 07/14/24 13:28) Medications ???Medication ???Instructions ???Recorded ???Confirmed ???Type PNV 153-FA 400 mcg-om3 35 mg-dha tab PO 06/02/24 07/14/24 History 25 mg-epa 5 mg-fish oil chew tablet ondansetron HCl 4 mg tablet 4 mg PO Q8H PRN 06/02/24 07/14/24 History Last Menstrual Period: 03/30/24 Zika: Zika virus screening: Negative : No PFSH PFSH Medical History Varicose vein vulva-delivered FH: breast cancer Cystitis during , antepartum False labor Gestational thrombocytopenia 30 weeks gestation of Surgical History H/O basal cell carcinoma excision History of surgery History of surgery History of surgery Family History Grandmother Breast cancer, Onset Age: 65 Maternal- mets to liver Grandfather Myocardial infarction, Onset Age: 78 Paternal Social History adopted: No household members: spouse and children number of children: 2 current occupational status: unemployed current occupation: [employer] pets and animals: Yes pets and animals: dog(s) history of recent travel: No sexually active: Yes Smoking Status: Never smoker alcohol intake: current alcohol intake frequency: a few times a month details: Not while substance use type: does not use well-balanced diet: daily or most days caffeine: Yes Type: coffee Number of servings: 2 eating out: rarely or never during the past year weight has: remained stable what type of physical activity do you participate in: none ramesh/congregation: Gnosticism seatbelt use: always do you feel safe at home: Yes 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 Date Name GA/Weeks Outcome Route Bth Weight Gen Labor Lgth Anesthesia Del Locatn Provider [facility] - [facility] 6lb 8 [facility] Female 12 epidural [facility] Jg Rush 02/22/21 [place] 38 live - full term 6# 8oz Female epidural [facility] Cal Rush Delivery Date: 08/24/19 Last Updated by: Carlee He MD pprom, labor, chorioamnionitis Delivery Date: 02/22/21 Last Updated by: Patricia Nichols iol, , prolapse(vulvo-vaginal varicosity) at 26 wks and two more times after- no problems since HPI 15 wk OB Details: MARIBEL CROCKETT is a 34 year old who presents for routine OB visit. OB Visit [facility] Calculator Estimated Delivery Date Method Current WG Current Estimate 01/04/25 LMP (Uncertain) 15w 1d Other Estimates 01/02/25 Ultrasound #1 15w 3d Expected Delivery Route/Plan Labor Preferences- CB/BF classes: [] labor support person: [] labor intervention preferences: [] pain management options preferred: [] cut cord/dad catch: [] : [] PP control planned: [] discussed possible routes of delivery and associated risks: [] special requests: [] Specific Issue/Plans Covid status: [] Flu vaccine: [] Tdap vaccine: [] Rhogam: [] LARC form signed: [] Problem list reviewed and updated with the most current plan of care details and appropriate orders placed. Relevant counseling for the gestational age provided. Continue routine care and follow up unless otherwise noted in visit notes/problem list details Initial Weight: Not Recorded Date -???-???-???-???-???-???- ???-???-???-???-???-???- EGA Weight BP Urine Prot -???-???-???-???-???-???- ???-???-???-???-???-???- Glucose FHR FuHt Pres Dilation -???-???-???-???-???-???- ???-???-???-???-???-???- Effaced St Visit Note 06/09/24 -???-???-???-???-???-???- ???-???-???-???-???-???- 10w 1d 121 lb 6 oz 116/80 -???-???-???-???-???-???- ???-???-???-???-???-???- 175 -???-???-???-???-???-???- ???-???-???-???-?? (more content not included)... Normal [facility] PAP IG HPV APTIMA 16/18,45on 07-04-2024 ORDER Normal [facility] Comment on above: Order Comment: Clini ximena Info: Collection Vial: Thin Prep Vial SUPERVISOR SCREEN PRINTING Source: CERVICAL Date LMP/Menopause: LMP Date: Place date of last LMP if known 03/30/24 Collection Techniques: CX BROOM ONLY Result Comment: IGP, Aptima HPV, rfc 16/18,45 Interpretation: NEGATIVE FOR INTRAEPITHELIAL LESION AND MALIGNANCY Specimen Adequacy: Satisfactory for evaluation. Endocervical and/or squamous metaplastic cells (endocervical component) are present. Comments: The pap smear is a screening test designated to aid in the detection of pre-malignant and malignant conditions of the uterine cervix. It is not a diagnostic procedure and should not be used as the sole means of detecting cervical cancer. Both false-positive and false-negative reports do occur. This liquid based ThinPrep(R) pap test was screened with the use of an image guided system. Performed by Domingo Solis, Jointer Machine (ASCP) This nucleic acid amplification test detects fourteen high-risk HPV types (16,18,31,33,35,39,45,51,52,56,58,59,66,68) without differentiation. HPV RESULTS: HPV Aptima: Negative HPV Genotype Reflex Criteria not met, HPV Genotype not performed. TESTING PERFORMED AT [facility]. ORIGINAL REPORT ON FILE IN LAB CONTAINS ADDITIONAL TEST SITE INFORMATION. Performed By: #### L 7000.1800, L7400.0280, M100.2200 #### [facility] [address], [address] Chlamydia/GC GISELA aptimaon CHLAMY,NUC ACID Negative Normal [facility] Comment on above: Performed By: #### L 7000.1800, L7400.0280, M100.2200 #### [facility] [address] [place], [address] GC BY NUC ACID Negative Normal [facility] Comment on above: Performed By: #### L 7000.1800, L7400.0280, M100.2200 #### [facility] [address] [place], [address] NATERAon 06-13-2024 NATURA SEE SCANNED REPORT Normal [facility] Comment on above: Performed By: #### L 7000.1800, L7400.0280, M100.2200 #### [facility] [address] [place], [address] Urine Cultureon 06-10-2024 URC Culture exhibits no growth. Normal [facility] Comment on above: Performed By: #### L 7000.1800, L7400.0280, M100.2200 #### [facility] [address] [place], [address] Absolute lymphocyte countOrd ered By: Citlalli Cabrera on 06-09-2024 Lymphocytes Auto (Unsp spec) [#/Vol] 1.15 10*3/uL 0.83-4.51 [facility] Absolute neutrophil countOrd ered By: Citlalli Cabrera on 06-09-2024 Neutrophils (Bld) [#/Vol] 4.6 10*3/uL 2.0-7.7 [facility] Automated lymphocyte count a s percentage of total leukocytesOrdered By: Citlalli Cabrera on 06-09-2024 Lymphocytes/100 WBC Auto (Unsp spec) 18.5 % Low 19-41 [facility] Basophil percentageOrdered B y: Citlalli Cabrera on 06-09-2024 Basophils/100 WBC (Bld) 0.5 % 0-1 [facility] CBC W/Diff, Automatedon 02- Absolute Lymph 1.15 X10 3/uL Normal 0.83-4.51 [facility] Comment on above: Performed By: #### L 509.4005, L3890.6100, L3890.6300, L3890.6005, L900.0098, BTS, L509.8000, L100.0100 #### [facility] [address] [place], [address] Absolute Neut 4.6 X10 3/uL Normal 2.0-7.7 [facility] Comment on above: Performed By: #### L 509.4005, L3890.6100, L3890.6300, L3890.6005, L900.0098, BTS, L509.8000, L100.0100 #### [facility] [address] [place], [address] Basophils/100 WBC (Bld) 0.5 % Normal 0-1 [facility] Comment on above: Performed By: #### L 509.4005, L3890.6100, L3890.6300, L3890.6005, L900.0098, BTS, L509.8000, L100.0100 #### [facility] [address] [facility] [place], [address] Eosinophils/100 WBC (Bld) 0.6 % Normal 0-5 [facility] Comment on above: Performed By: #### L 509.4005, L3890.6100, L3890.6300, L3890.6005, L900.0098, BTS, L509.8000, L100.0100 #### [facility] [address] [place], [address] Erythrocyte distribution width (RBC) [Ratio] 11.9 % Normal 11.6-14.6 [facility] Comment on above: Performed By: #### L 509.4005, L3890.6100, L3890.6300, L3890.6005, L900.0098, BTS, L509.8000, L100.0100 #### [facility] [address] [place], [address] Hematocrit (Bld) [Volume fraction] 43.3 % Normal 37-47 [facility] Comment on above: Performed By: #### L 509.4005, L3890.6100, L3890.6300, L3890.6005, L900.0098, BTS, L509.8000, L100.0100 #### [facility] [address] [place], [address] Hemoglobin (Bld) [Mass/Vol] 14.6 g/dL Normal 12.0-15.0 [facility] Comment on above: Performed By: #### L 509.4005, L3890.6100, L3890.6300, L3890.6005, L900.0098, BTS, L509.8000, L100.0100 #### [facility] [address] [place], [address] IG% 0.300 Normal 0.0-0.9 [facility] Comment on above: Result Comment: IG% - Immature Granulocytes (promyelocytes, myelocytes and metamyelocytes) > 1% indicates that a LEFT SHIFT is Present. Performed By: #### L 509.4005, L3890.6100, L3890.6300, L3890.6005, L900.0098, BTS, L509.8000, L100.0100 #### [facility] [address] [place], [address] Lymphocytes/100 WBC (Bld) 18.5 % Low 19-41 [facility] Comment on above: Performed By: #### L 509.4005, L3890.6100, L3890.6300, L3890.6005, L900.0098, BTS, L509.8000, L100.0100 #### [facility] [address] [place], [address] MCH (RBC) [Entitic mass] 30.9 pg Normal 27.0-32.0 [facility] Comment on above: Performed By: #### L 509.4005, L3890.6100, L3890.6300, L3890.6005, L900.0098, BTS, L509.8000, L100.0100 #### [facility] [address] [place], [address] MCHC (RBC) [Mass/Vol] 33.7 g/dL Normal 32-36 [facility] Comment on above: Performed By: #### L 509.4005, L3890.6100, L3890.6300, L3890.6005, L900.0098, BTS, L509.8000, L100.0100 #### [facility] [address] [place], [address] MCV (RBC) [Entitic vol] 91.7 fL Normal 81-99 [facility] Comment on above: Performed By: #### L 509.4005, L3890.6100, L3890.6300, L3890.6005, L900.0098, BTS, L509.8000, L100.0100 #### [facility] [address] [place], [address] Monocytes/100 WBC (Bld) 6.7 % Normal 0-10 [facility] Comment on above: Performed By: #### L 509.4005, L3890.6100, L3890.6300, L3890.6005, L900.0098, BTS, L509.8000, L100.0100 #### [facility] [address] [place], [address] Neutrophils/100 WBC (Bld) 73.4 % High 47-70 [facility] Comment on above: Performed By: #### L 509.4005, L3890.6100, L3890.6300, L3890.6005, L900.0098, BTS, L509.8000, L100.0100 #### [facility] [address] [place], [address] Nucleated RBC (Bld) [#/Vol] 0 10*3/uL Normal 0-5 [facility] Comment on above: Performed By: #### L 509.4005, L3890.6100, L3890.6300, L3890.6005, L900.0098, BTS, L509.8000, L100.0100 #### [facility] [address] [place], [address] Platelet mean volume (Bld) [Entitic vol] 12.4 fL High 6.2-12.0 [facility] Comment on above: Performed By: #### L 509.4005, L3890.6100, L3890.6300, L3890.6005, L900.0098, BTS, L509.8000, L100.0100 #### [facility] [address] [place], [address] Platelets (Bld) [#/Vol] 115 10*3/uL Low 150-450 [facility] Comment on above: Performed By: #### L 509.4005, L3890.6100, L3890.6300, L3890.6005, L900.0098, BTS, L509.8000, L100.0100 #### [facility] [address] [place], [address] RBC (Bld) [#/Vol] 4.72 10*6/uL Normal 4.2-5.4 [facility] Comment on above: Performed By: #### L 509.4005, L3890.6100, L3890.6300, L3890.6005, L900.0098, BTS, L509.8000, L100.0100 #### [facility] [address] [place], [address] RDW SD 40.2 fl Normal 35.1-43.9 [facility] Comment on above: Performed By: #### L 509.4005, L3890.6100, L3890.6300, L3890.6005, L900.0098, BTS, L509.8000, L100.0100 #### [facility] [address] [place], [address] WBC (Bld) [#/Vol] 6.2 10*3/uL Normal 4.4-11.0 [facility] Comment on above: Performed By: #### L 509.4005, L3890.6100, L3890.6300, L3890.6005, L900.0098, BTS, L509.8000, L100.0100 #### [facility] [address] [place], [address] Cervical or vaginal specimen microscopic examination by liquid based cytology (reportOrdered By: Citlalli Cabrera on 06-09-2024 Cytology report Cyto stain.thin prep Doc (Cvx/Vag) Not Reportable [facility] Chlamydia trachomatis rRNA d etection by probe and target amplification methodOrdered By: Citlalli Cabrera on 06-09-2024 C. trachomatis rRNA GISELA+probe Ql (Unsp spec) Negative [facility] Eosinophil percentageOrdered By: Citlalli Cabrera on 06-09-2024 Eosinophils/100 WBC (Bld) 0.6 % 0-5 [facility] Erythrocyte distribution wid th ratioOrdered By: Citlalli Cabrera on 06-09-2024 Erythrocyte distribution width (RBC) [Ratio] 11.9 % 11.6-14.6 [facility] Erythrocyte distribution wid th standard deviationOrdered By: Citlalli Cabrera on 06-09-2024 Erythrocyte distribution width (RBC) [Ratio] 40.2 fl 35.1-43.9 [facility] HIV - WCHon 06-09-2024 HIV Non-Reactive Normal Nonreactive [facility] Comment on above: Order Comment: Reaso n for Exam: Performed By: #### L 509.4005, L3890.6100, L3890.6300, L3890.6005, L900.0098, BTS, L509.8000, L100.0100 #### [facility] [address] [place], [address] HIV 1 and HIV-2 antibody ass ay with HIV-1 p24 antigen detectionOrdered By: Citlalli Cabrera on 06-09-2024 HIV 1+2 Ab+HIV1 p24 Ag IA Ql Non-Reactive Nonreactive [facility] Hematocrit Auto (Bld) [Volum e fraction]Ordered By: Citlalli Cabrera on 06-09-2024 Hematocrit (Bld) [Volume fraction] 43.3 % 37-47 [facility] Hemoglobin measurementOrdere d By: Citlalli Cabrera on 06-09-2024 Hemoglobin (Bld) [Mass/Vol] 14.6 g/dL 12.0-15.0 [facility] Hepatitis B Surface Antigeno n 06-09-2024 HEP B Surf Ag [facility]-Reactive [facility] Comment on above: Order Comment: Reaso n for Exam: Performed By: #### L 509.4005, L3890.6100, L3890.6300, L3890.6005, L900.0098, BTS, L509.8000, L100.0100 #### [facility] [address] [place], [address] Hepatitis C Antibodyon 06-09 Hepatitis C AB Non-Reactive Normal Nonreactive [facility] Comment on above: Order Comment: Reaso n for Exam: Result Comment: Non Reactive: < 0.8 Equivocal: >/= 0.8 to < 1.0 Reactive: >/= 1.0 The CDC requires that a reactive/equivocal HCV antibody result be sent out for confirmation. HCV Quant by PCR testing. Performed By: #### L 7000.1800, L7400.0280, M100.2200 #### [facility] [address] [place], [address] Immature granulocytes/100 WB C Auto (Bld)Ordered By: Citlalli Cabrera on 06-09-2024 Immature granulocytes/100 WBC (Bld) 0.300 % 0.0-0.9 [facility] Comment on above: IG% - Immature Granu locytes (promyelocytes, myelocytes and metamyelocytes) > 1% indicates that a LEFT SHIFT is Present. L509.8000on 06-09-2024 Syphilis Abs Non-Reactive Normal [facility] Comment on above: Order Comment: Reaso n for Exam: Performed By: #### L 509.4005, L3890.6100, L3890.6300, L3890.6005, L900.0098, BTS, L509.8000, L100.0100 #### [facility] [address], [address] MCV (mean corpuscular volume ) determinationOrdered By: Citlalli Cabrera on 06-09-2024 MCV (RBC) [Entitic vol] 91.7 fL 81-99 [facility] Mean corpuscular hemoglobin (MCH) determinationOrdered By: Citlalli Cabrera on 06-09-2024 MCH (RBC) [Entitic mass] 30.9 pg 27.0-32.0 [facility] Mean corpuscular hemoglobin concentration (MCHC) determinationOrdered By: Citlalli Cabrera on 06-09-2024 MCHC (RBC) [Mass/Vol] 33.7 g/dL 32-36 [facility] Mean platelet volume determi nationOrdered By: Citlalli Cabrera on 06-09-2024 Platelet mean volume (Bld) [Entitic vol] 12.4 fL High 6.2-12.0 [facility] Monocyte percentageOrdered B y: Citlalli Cabrera on 06-09-2024 Monocytes/100 WBC (Bld) 6.7 % 0-10 [facility] NATERAon 06-09-2024 NATURA SEE SCANNED REPORT Normal [facility] Comment on above: Order Comment: This specimen has been REJECTED due to Laboratory criteria: Quanity Not Sufficient. Comments: NIPT with Gender only Result Comment: This specimen has been REJECTED due to Laboratory criteria: Quanity Not Sufficient. Performed By: #### L 509.4005, L3890.6100, L3890.6300, L3890.6005, L900.0098, BTS, L509.8000, L100.0100 #### [facility] [address] [place], [address] Neisseria gonorrhoeae nuclei c acid detection by amplified probe techniqueOrdered By: Citlalli Cabrera on 06-09-2024 N. gonorrhoeae DNA GISELA+probe Ql (Unsp spec) Negative [facility] Neutrophil percentageOrdered By: Citlalli Cabrera on 06-09-2024 Neutrophils/100 WBC (Bld) 73.4 % High 47-70 [facility] No Panel InformationOrdered By: Citlalli Cabrera on 06-09-2024 Pap Smear Test Ordered See comment W [facility] Comment on above: IGP, Aptima HPV, rfc 16/18,45Interpretation:NEGATIVE FOR INTRAEPITHELIAL LESION AND MALIGNANCYSpecimen Adequacy:Satisfactory for evaluation. Endocervical and/or squamousmetaplastic cells (endocervical component) are present.Comments:The pap smear is a screening test designated to aid in thedetection of pre-malignant and malignant conditions of theuterine cervix. It is not a diagnostic procedure and shouldnot be used as the sole means of detecting cervical cancer. Both false-positive and false-negative reports do occur.This liquid based ThinPrep(R) pap test was screened with the use of an image guided system. Performed by Domingo Solis, Jointer Machine (ASCP) This nucleic acid amplification test detects fourteen high-risk HPV types (16,18,31,33,35,39,45,51,52,56,58,59,66,68) without differentiation.HPV RESULTS: HPV Aptima: Negative HPV Genotype Reflex Criteria not met, HPV Genotype not performed. ____ TESTING PERFORMED AT [facility]. ORIGINAL REPORT ON FILE IN LAB CONTAINS ADDITIONAL TEST SITE INFORMATION. 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 Citlalli acuna MD Age/Sex: 34/F Location: [facility] Status: Signed Intake Vital Signs 02/21/21 15:13 06/09/24 10:15 Height 5 ft 7.5 in 5 ft 7.5 in Weight: 121 lb 6 oz BMI 18.7 BP 116/80 Intake Visit Reasons: LMP 03/30/24 MARGO 01/04/25 Inspector Cold Working Required: No Is patient in pain?: No Allergies No Known Allergies Allergy (Verified 06/09/24 10:17) Medications ???Medication ???Instructions ???Recorded ???Confirmed ???Type PNV 153-FA 400 mcg-om3 35 mg-dha tab PO 06/02/24 06/09/24 History 25 mg-epa 5 mg-fish oil chew tablet ondansetron HCl 4 mg tablet 4 mg PO Q8H PRN 06/02/24 06/09/24 History Last Menstrual Period: 03/30/24 Zika: Zika virus screening: Negative : No Have you fallen in the past year?: No PFSH PFSH Medical History Varicose vein vulva-delivered FH: breast cancer Cystitis during , antepartum False labor Gestational thrombocytopenia 30 weeks gestation of Surgical History H/O basal cell carcinoma excision History of surgery History of surgery History of surgery Family History Grandmother Breast cancer, Onset Age: 65 Maternal- mets to liver Grandfather Myocardial infarction, Onset Age: 78 Paternal Social History adopted: No household members: spouse and children number of children: 2 service: No current occupational status: unemployed current occupation: [employer] pets and animals: Yes pets and animals: dog(s) history of recent travel: No sexually active: Yes Smoking Status: Never smoker alcohol intake: current alcohol intake frequency: a few times a month details: Not while substance use type: does not use well-balanced diet: daily or most days caffeine: Yes Type: coffee Number of servings: 2 eating out: rarely or never during the past year weight has: remained stable what type of physical activity do you participate in: none ramesh/congregation: Gnosticism seatbelt use: always do you feel safe at home: Yes 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 Date Name GA/Weeks Outcome Route Bth Weight Gen Labor Lgth Anesthesia Del Locatn Provider FOB 08/24/19 [place] 36 live - vacuum 6lb 8 oz Female 12 epidural [facility] 02/22/21 [place] 38 live - full term 6# 8oz Female epidural [facility] Cal Rush Delivery Date: 08/24/19 Last Updated by: Carlee He MD pprom, labor, chorioamnionitis Delivery Date: 02/22/21 Last Updated by: Patricia Nichols iol, , prolapse(vulvo-vaginal varicosity) at 26 wks and two more times after- no problems since HPI LMP 03/30/24 MARGO 01/04/25 Details: MARIBEL CROCKETT is a 34 year old who presents for New OB visit. OB Visit [facility] Calculator Estimated Delivery Date Method Current WG Current Estimate 01/04/25 LMP (Uncertain) 10w 1d Other Estimates 01/02/25 Ultrasound #1 10w 3d Comments: HIV: Urine Culture: Sequential Screen: NIPT Screen: Estimated Due Date: 01/04/25 Expected Delivery Route/Plan Labor Preferences- CB/BF classes: [] labor support person: [] labor intervention preferences: [] pain management options preferred: [] cut cord/dad catch: [] : [] PP control planned: [] discussed possible routes of delivery and associated risks: [] special requests: [] Specific Issue/Plans Covid status: [] Flu vaccine: [] Tdap vaccine: [] Rhogam: [] LARC form signed: [] Problem list reviewed and updated with the most current plan of care details and appropriate orders placed. Relevant counseling for the gestational age provided. Continue routine care and follow up unless otherwise noted in visit notes/problem list details Initial Weight: Not Recorded Date -???-???-???-???-???-???- ???-???-???-???-???-???- EGA Weight BP Urine Prot -???-???-???-???-???-???- ???-???-???-???-???-???- Glucose FHR FuHt Pres Dilation -???-???-???-???-???-???- ???-???-???-???-???-???- Effaced St Visit Note 06/09/24 -???-???-???-???-???-???- ???-???-???-???-???-???- 10w (more content not included)... Normal [facility] Platelet countOrdered By: Khoi Cabrera on 06-09-2024 Platelets (Bld) [#/Vol] 115 10*3/uL Low 150-450 [facility] RBC Auto (Bld) [#/Vol]Ordere d By: Citlalli Cabrera on 06-09-2024 RBC (Bld) [#/Vol] 4.72 10*6/uL 4.2-5.4 [facility] Rubella IgGon 06-09-2024 Rubella IgG Reactive Normal Nonreactive [facility] Comment on above: Order Comment: Reaso n for Exam: Result Comment: Anti body Results Interpretation of Immune Status Non Reactive Presumed Non-Immune Equivocal Equivocal Reactive Presumed Immune Performed By: #### L 509.4005, L3890.6100, L3890.6300, L3890.6005, L900.0098, BTS, L509.8000, L100.0100 #### [facility] [address] [place], [address] Serum Treponema species anti body detectionOrdered By: Citlalli Cabrera on 06-09-2024 Treponema sp Ab Ql (S) Non-Reactive [facility] Type AND Screenon 06-09-2024 ABO and Rh group Nom (Bld) Blood group A Rh(D) positive Normal [facility] Comment on above: Order Comment: PN Performed By: #### L 7000.1800, L7400.0280, M100.2200 #### [facility] [address] [place], [address] Ab SCREEN GEL Negative Normal [facility] Comment on above: Order Comment: PN Performed By: #### L 7000.1800, L7400.0280, M100.2200 #### [facility] [address] [place], [address] Urine cultureOrdered By: Felton Cabrera on 06-09-2024 Bacteria identified Cx Nom (U) Culture exhibits no growth. [facility] White blood cell (WBC) count Ordered By: Citlalli Cabrera on 06-09-2024 WBC (Bld) [#/Vol] 6.2 10*3/uL 4.4-11.0 [facility] Office Visiton 05-19-2022 Follow-up visit Diagnoses/Problems ADD (attention deficit disorder) (314.00) (F98.8) Orders ADD (attention deficit disorder) Renew: Vyvanse 30 MG Oral Capsule; TAKE 1 CAPSULE Daily Provider Impressions Continue current medications. F/u in 3-4 months, sooner if needed. Chief Complaint 1 mo f/u History of Present IllnessHere for f/u ADHD. She states that the medication is working well for her right now. Review of Systems Constitutional: Negative except as documented in history of present illness. Respiratory: Negative except as documented in history of present illness. Cardiovascular: Negative except as documented in history of present illness. Active Problems ADD (attention deficit disorder) (314.00) (F98.8) Past Medical History History of attention deficit hyperactivity disorder (ADHD) (V11.8) (Z86.59) History of methicillin resistant Staphylococcus aureus infection (V12.04) (Z86.14) Rt leg, 2006 Surgical History History of Appendectomy 2005 History of Breast augmentation 2013 History of [place] tooth extraction x4, 2009 Social History Caffeine use (V49.89) (Z78.9) Never smoker Occasional alcohol use Allergies No Known Drug Allergies Recorded By: Tonya Kearney; 04/07/2022 3:19:18 PM Current Meds Medication NameInstruction Tretinoin 0.05 % External Cream Vyvanse 30 MG Oral CapsuleTAKE 1 CAPSULE Daily Vitals Vital Signs Recorded: 19May2022 10:07AM Heart Rate94 Ipbfilra790, LUE, Sitting Yhgswahaw87, LUE, Sitting Height5 ft 7.75 in Vbybmi659 lb 8 oz BMI Oiixxeqbmj57.61 kg/m2 BSA Calculated1.65 Tobacco Useb) No Falls Screening (Age 18+)a) No falls within the last year O2 Aklkbdqkkm71 Physical Exam General: Alert and oriented, No acute distress. Respiratory: Lungs are clear to auscultation, Respirations are non-labored, Breath sounds are equal. Cardiovascular: Normal rate, Regular rhythm, No murmur. Integumentary: Warm, Dry. Neurologic: Alert, Oriented, No focal deficits. Psychiatric: Cooperative, Appropriate mood AND affect. Signatures Electronically signed by : Tamika Sandhu MD; May 19 2022 10:30AM EST (Author) Normal [facility] DRUG SCREEN,URINE WITH REFLE X TO CONFIRMATIONon 04-21-2022 AMPHETAMINE SCREEN,U Negative Normal NEGATIVE [facility] Comment on above: Result Comment: CUTO FF LEVEL: 500 NG/ML Cross-reactivity has been reported with high concentrations of the following drugs: buproprion, chloroquine, chlorpromazine, ephedrine, mephentermine, fenfluramine, phentermine, phenylpropanolamine, pseudoephedrine, and propranolol. Performed By: #### D RUGR #### [place] [address] BARBITURATES SCREEN,U Negative Normal NEGATIVE [facility] Comment on above: Result Comment: CUTO FF LEVEL: 200 NG/ML Performed By: #### D RUGR #### [place] [address] BENZODIAZEPINES SCREEN,U Negative Normal NEGATIVE [facility] Comment on above: Result Comment: CUTO FF LEVEL: 200 NG/ML Performed By: #### D RUGR #### [place] [address] CANNABINOIDS SCREEN,U Negative Normal NEGATIVE [facility] Comment on above: Result Comment: CUTO FF LEVEL: 50 NG/ML Performed By: #### D RUGR #### [place] [address] COCAINE METABOLITE SCREEN,U Negative Normal NEGATIVE [facility] Comment on above: Result Comment: CUTO FF LEVEL: 150 NG/ML Performed By: #### D RUGR #### [place] [address] DRUG SCREEN COMMENT SEE BELOW Normal [facility] Comment on above: Result Comment: Drug screen results are presumptive and should not be used to assess compliance with prescribed medication. Definitive confirmatory drug testing has been added to this sample for any positive screen result and will be reported separately. . Toxicology screening results are reported qualitatively. The concentration must be greater than or equal to the cutoff to be reported as positive. The concentration at which the screening test can detect an individual drug or metabolite varies. The absence of expected drug(s) and/or drug metabolite(s) may indicate non-compliance, inappropriate timing of specimen collection relative to drug administration, poor drug absorption, diluted/adulterated urine, or limitations of testing. For medical purposes only; not valid for forensic use. . Interpretive questions should be directed to the laboratory medical directors. Performed By: #### D RUGR #### [place] [address] FENTANYL SCREEN,URINE Negative Normal NEGATIVE [facility] Comment on above: Result Comment: CUTO FF LEVEL: 5 NG/ML Performed By: #### D RUGR #### [place] [address] METHADONE SCREEN,U Negative Normal NEGATIVE [facility] Comment on above: Result Comment: CUTO FF LEVEL: 150 NG/ML The metabolite Q-perxe-vquznucqatowll (LAAM) is not detected by this method in concentrations that would be found in the urine of patients on LAAM therapy. Performed By: #### D RUGR #### [place] [address] OPIATES SCREEN,U Negative Normal NEGATIVE [facility] Comment on above: Result Comment: CUTO FF LEVEL: 300 NG/ML The opiate screen does not detect fentanyl, meperidine, or tramadol. Oxycodone is not consistently detected (refer to Oxycodone Screen, Urine result). Performed By: #### D RUGR #### [place] [address] OXYCODONE SCREEN,U Negative Normal NEGATIVE [facility] Comment on above: Result Comment: CUTO FF LEVEL: 100 NG/ML This test will accurately detect both oxycodone and oxymorphone. Performed By: #### D RUGR #### [place] [address] PCP SCREEN,U Negative Normal NEGATIVE [facility] Comment on above: Result Comment: CUTO FF LEVEL: 25 NG/ML Cross-reactivity has been reported with dextromethorphan. Performed By: #### D RUGR #### [place] [address] Laboratory - Drug toxicology on 04-21-2022 Amphetamines Screen Ql (U) Negative NEGATIVE -[facility] [employer] [facility] Work Phone: Comment on above: CUTOFF LEVEL: 500 NG /ML Cross-reactivity has been reported with high concentrations of the following drugs: buproprion, chloroquine, chlorpromazine, ephedrine, mephentermine, fenfluramine, phentermine, phenylpropanolamine, pseudoephedrine, and propranolol. Barbiturates Screen Ql (U) Negative NEGATIVE [facility] Work Phone: Comment on above: CUTOFF LEVEL: 200 NG /ML Benzodiazepines Ql (U) Negative NEGATIVE [facility] Work Phone: Comment on above: CUTOFF LEVEL: 200 NG /ML Benzoylecgonine Screen Ql (U) Negative NEGATIVE [facility] Work Phone: Comment on above: CUTOFF LEVEL: 150 NG /ML Cannabinoids Screen Ql (U) Negative NEGATIVE [facility] Work Phone: Comment on above: CUTOFF LEVEL: 50 NG/ ML Methadone Screen Ql (U) Negative NEGATIVE [facility] Work Phone: Comment on above: CUTOFF LEVEL: 150 NG /ML The metabolite I-xqxyb-nvsfpzizvyydhr (LAAM) is not detected by this method in concentrations that would be found in the urine of patients on LAAM therapy. Opiates Screen Ql (U) Negative NEGATIVE [facility] Work Phone: Comment on above: CUTOFF LEVEL: 300 NG /ML The opiate screen does not detect fentanyl, meperidine, or tramadol. Oxycodone is not consistently detected (refer to Oxycodone Screen, Urine result). oxyCODONE+oxyMORphone Screen Ql (U) Negative NEGATIVE [facility] Work Phone: Comment on above: CUTOFF LEVEL: 100 NG /ML This test will accurately detect both oxycodone and oxymorphone. Phencyclidine Ql (U) Negative NEGATIVE [facility] Work Phone: Comment on above: CUTOFF LEVEL: 25 NG/ ML Cross-reactivity has been reported with dextromethorphan. No Panel Informationon 04-21 Negative NEGATIVE [employer] [facility] Work Phone: Comment on above: CUTOFF LEVEL: 5 NG/M L SEE BELOW -[employer] [facility] Work Phone: Comment on above: Drug screen results are presumptive and should not be used to assess compliance with prescribed medication. Definitive confirmatory drug testing has been added to this sample for any positive screen result and will be reported separately. .Toxicology screening results are reported qualitatively. The concentration must be greater than or equal to the cutoff to be reported as positive. The concentration at which the screening test can detect an individual drug or metabolite varies. The absence of expected drug(s) and/or drug metabolite(s) may indicate non-compliance, inappropriate timing of specimen collection relative to drug administration, poor drug absorption, diluted/adulterated urine, or limitations of testing. For medical purposes only; not valid for forensic use. .Interpretive questions should be directed to the laboratory medical directors. Office Visiton 04-21-2022 Follow-up visit Diagnoses/Problems ADD (attention deficit disorder) (314.00) (F98.8) Orders ADD (attention deficit disorder) Start: Vyvanse 30 MG Oral Capsule; TAKE 1 CAPSULE Daily Provider Impressions We will start Vyvanse at 30 mg daily. Get Drug screen and controlled substance agreement today. F/u in 1 month, sooner if needed. Chief Complaint 2 week f/u, lab review History of Present IllnessHere for f/u recent labs, ADHD. We did get her records from her psychiatrist. Review of Systems Constitutional: Negative except as documented in history of present illness. Respiratory: Negative except as documented in history of present illness. Cardiovascular: Negative except as documented in history of present illness. Active Problems ADD (attention deficit disorder) (314.00) (F98.8) Past Medical History History of attention deficit hyperactivity disorder (ADHD) (V11.8) (Z86.59) History of methicillin resistant Staphylococcus aureus infection (V12.04) (Z86.14) Rt leg, 2006 Surgical History History of Appendectomy 2005 History of Breast augmentation 2014 History of [place] tooth extraction x4, 2010 Social History Caffeine use (V49.89) (Z78.9) Never smoker Occasional alcohol use Allergies No Known Drug Allergies Recorded By: Tonya Kearney; 04/07/2022 3:19:18 PM Vitals Vital Signs Recorded: 21Apr2022 10:04AM Heart Rate92 Itjmzgdj703, LUE, Sitting Zegorciky49, LUE, Sitting Height5 ft 7.75 in Yybbes242 lb 9 oz BMI Kqeggbamzt68.08 kg/m2 BSA Calculated1.67 Tobacco Useb) No Falls Screening (Age 18+)a) No falls within the last year O2 Kdyruiqecw36 Physical Exam General: Alert and oriented, No acute distress. Respiratory: Lungs are clear to auscultation, Respirations are non-labored, Breath sounds are equal. Cardiovascular: Normal rate, Regular rhythm, No murmur. Integumentary: Warm, Dry. Neurologic: Alert, Oriented, No focal deficits. Psychiatric: Cooperative, Appropriate mood AND affect. Results/Data Complete Blood Count + [id number] 10:42AMTamika Sandhu [Apr 20, 2022 9:04AM Tamika Sandhu] appt 04/21 Test NameResultFlagReference White Blood Cell Count4.4 x10E9/L4.4 - 11.3 Red Blood Cell Count4.50 x10E12/LSee Below Reference Range: 4.00 - 5.20 Ejwhrxlmgt65.8 g/dLSee Below Reference Range: 12.0 - 16.0 HCT42.9 %See Below Reference Range: 36.0 - 46.0 MCV95 fL80 - 100 MCHC32.2 g/dLSee Below Reference Range: 32.0 - 36.0 Platelet Hlphx323 x10E9/LL150 - 450 RDW-CV11.8 %See Below Reference Range: 11.5 - 14.5 Neutrophil %52.7 %See Below Reference Range: 40.0 - 80.0 % Automated Immature Gran0.2 %0.0 - 0.9 Immature Granulocyte Count (IG) includes promyelocytes, myelocytes and metamyelocytes but does not include bands. Percent differential counts (%) should be interpreted in the context of the absolute cell counts (cells/L). Lymphocyte %37.7 %See Below Reference Range: 13.0 - 44.0 Monocyte %7.5 %2.0 - 10.0 Eosinophil %1.4 %0.0 - 6.0 Basophil %0.5 %0.0 - 2.0 Neutrophil Count2.32 x10E9/LSee Below Reference Range: 1.20 - 7.70 Percent differential counts (%) should be interpreted in the context of the absolute cell counts (cells/L). Lymphocyte Count1.66 x10E9/LSee Below Reference Range: 1.20 - 4.80 Monocyte Count0.33 x10E9/LSee Below Reference Range: 0.10 - 1.00 Eosinophil Count0.06 x10E9/LSee Below Reference Range: 0.00 - 0.70 Basophil Count0.02 x10E9/LSee Below Reference Range: 0.00 - 0.10 Comprehensive Metabolic [id number] 10:42Tamika Johnston [Apr 20, 2022 9:04AM Tamika Sandhu] appt 04/21 Test NameResultFlagReference Glucose, Serum73 mg/dLL74 - 99 Sodium, Bvenu738 mmol/L136 - 145 POTASSIUM3.6 mmol/L3.5 - 5.3 Chloride, Oaqna219 mmol/L98 - 107 Bicarbonate, Serum28 mmol/L21 - 32 Anion Gap, Serum13 mmol/L10 - 20 Blood Urea Nitrogen, Serum11 mg/dL6 - 23 CREATININE0.76 mg/dLSee Below Reference Range: 0.50 - 1.05 Calcium, Serum9.3 mg/dL8.6 - 10.3 Albumin, Serum4.5 g/dL3.4 - 5.0 ALKALINE TYEJBTGKBTW02 U/L33 - 110 Protein, Total Serum6.7 g/dL6.4 - 8.2 Bilirubin, Serum Total0.6 mg/dL0.0 - 1.2 ALT (SGPT), Serum17 U/L7 - 45 Patients treated with Sulfasalazine may generate falsely decreased results for ALT. GFR FEMALE>90 mL/min/1.73m2>90 CALCULATIONS OF ESTIMATED GFR ARE PERFORMED USING THE 2020 CKD-EPI STUDY REFIT EQUATION WITHOUT THE RACE VARIABLE FOR THE IDMS-TRACEABLE CREATININE METHODS. https://jasn.asnjournals. org/content//ASN.8103120397 AST22 U/L9 - 39 Lipid Gtudf55Rwl6337 10:42Tamika Johnston [Apr 20, 2022 9:04AM Tamika Sandhu] appt 04/21 Test NameResultFlagReference Cholesterol, Dawwr086 mg/dL0 - 199 . AGE DESIRABLE BORDERLINE HIGH HIGH 0-19 Y 0 - 169 170 - 199 >/= 200 20-24 Y 0 - 189 190 - 224 >/= 225 >24 Y 0 - 199 200 - 239 >/= 240 All ranges are based on fasting samples. Specific therapeutic targets will vary based on patient-specific cardiac r (more content not included)... Normal [employer] Tobacco Screening.on 022 Fall risk assessment a) No falls within the last year [facility] Work Phone: Tobacco use status CPHS b) No [facility] Work Phone: CBC AND DIFFERENTIALon 04-09 % AUTOMATED IMMATURE GRAN 0.2 % Normal 0.0 - 0.9 [facility] Comment on above: Result Comment: Shala ture Granulocyte Count (IG) includes promyelocytes, myelocytes and metamyelocytes but does not include bands. Percent differential counts (%) should be interpreted in the context of the absolute cell counts (cells/L). Performed By: #### C BCDF #### [address] [address] Basophils (Bld) [#/Vol] 0.02 10*3/uL Normal 0.00 - 0.10 [facility] Comment on above: Performed By: #### C BCDF #### [address] [address] Basophils/100 WBC (Bld) 0.5 % Normal 0.0 - 2.0 [facility] Comment on above: Performed By: #### C BCDF #### [address] [address] Eosinophils (Bld) [#/Vol] 0.06 10*3/uL Normal 0.00 - 0.70 [facility] Comment on above: Performed By: #### C BCDF #### [address] [place] [address] Eosinophils/100 WBC (Bld) 1.4 % Normal 0.0 - 6.0 [facility] Comment on above: Performed By: #### C BCDF #### [address] [address] Erythrocyte distribution width (RBC) [Ratio] 11.8 % Normal 11.5 - 14.5 [facility] Comment on above: Performed By: #### C BCDF #### [address] [address] Hematocrit (Bld) [Volume fraction] 42.9 % Normal 36.0 - 46.0 [facility] Comment on above: Performed By: #### C BCDF #### [address] [address] Hemoglobin (Bld) [Mass/Vol] 13.8 g/dL Normal 12.0 - 16.0 [facility] Comment on above: Performed By: #### C BCDF #### [address] [address] Lymphocytes (Bld) [#/Vol] 1.66 10*3/uL Normal 1.20 - 4.80 [facility] Comment on above: Performed By: #### C BCDF #### [address] [address] Lymphocytes/100 WBC (Bld) 37.7 % Normal 13.0 - 44.0 [facility] Comment on above: Performed By: #### C BCDF #### [address] [address] MCHC (RBC) [Mass/Vol] 32.2 g/dL Normal 32.0 - 36.0 [facility] Comment on above: Performed By: #### C BCDF #### [address] [address] MCV (RBC) [Entitic vol] 95 fL Normal 80 - 100 [facility] Comment on above: Performed By: #### C BCDF #### [address] [address] Monocytes (Bld) [#/Vol] 0.33 10*3/uL Normal 0.10 - 1.00 [facility] Comment on above: Performed By: #### C BCDF #### [address] [address] Monocytes/100 WBC (Bld) 7.5 % Normal 2.0 - 10.0 [facility] Comment on above: Performed By: #### C BCDF #### [address] [address] Neutrophils (Bld) [#/Vol] 2.32 10*3/uL Normal 1.20 - 7.70 [facility] Comment on above: Result Comment: Perc ent differential counts (%) should be interpreted in the context of the absolute cell counts (cells/L). Performed By: #### C BCDF #### [address] [address] Neutrophils/100 WBC (Bld) 52.7 % Normal 40.0 - 80.0 [facility] Comment on above: Performed By: #### C BCDF #### [address] [address] Platelets (Bld) [#/Vol] 130 10*3/uL Low 150 - 450 [facility] Comment on above: Performed By: #### C BCDF #### [address] [address] RBC 4.50 x10E12/L Normal 4.00 - 5.20 [facility] Comment on above: Performed By: #### C BCDF #### [address] [address] WBC (Bld) [#/Vol] 4.4 10*3/uL Normal 4.4 - 11.3 [facility] Comment on above: Performed By: #### C BCDF #### [address] [address] COMPREHENSIVE PANELon 2021 Albumin [Mass/Vol] 4.5 g/dL Normal 3.4 - 5.0 [facility] Comment on above: Performed By: #### C MP #### [address] [address] ALP [Catalytic activity/Vol] 44 U/L Normal 33 - 110 [facility] Comment on above: Performed By: #### C MP #### [address] [address] ALT [Catalytic activity/Vol] 17 U/L Normal 7 - 45 [facility] Comment on above: Result Comment: Annalisa ents treated with Sulfasalazine may generate falsely decreased results for ALT. Performed By: #### C MP #### [address] [address] Anion gap [Moles/Vol] 13 mmol/L Normal 10 - 20 [facility] Comment on above: Performed By: #### C MP #### [address] [address] AST [Catalytic activity/Vol] 22 U/L Normal 9 - 39 [facility] Comment on above: Performed By: #### C MP #### [address] [address] Bilirubin [Mass/Vol] 0.6 mg/dL Normal 0.0 - 1.2 [facility] Comment on above: Performed By: #### C MP #### [address] [address] Calcium [Mass/Vol] 9.3 mg/dL Normal 8.6 - 10.3 [facility] Comment on above: Performed By: #### C MP #### [address] [address] Chloride [Moles/Vol] 103 mmol/L Normal 98 - 107 [facility] Comment on above: Performed By: #### C MP #### [address] [address] Creatinine [Mass/Vol] 0.76 mg/dL Normal 0.50 - 1.05 [facility] Comment on above: Performed By: #### C MP #### [address] [address] eGFR FEMALE >90 Normal >90 [facility] Comment on above: Result Comment: CALC ULATIONS OF ESTIMATED GFR ARE PERFORMED USING THE 2020 CKD-EPI STUDY REFIT EQUATION WITHOUT THE RACE VARIABLE FOR THE IDMS-TRACEABLE CREATININE METHODS. https://jasn.asnjournals.org/content//ASN.46545 [address] Performed By: #### C MP #### [address] [address] Glucose [Mass/Vol] 73 mg/dL Low 74 - 99 [facility] Comment on above: Performed By: #### C MP #### [address] [address] HCO3 (Bld) [Moles/Vol] 28 mmol/L Normal 21 - 32 [facility] Comment on above: Performed By: #### C MP #### [address] [address] Potassium [Moles/Vol] 3.6 mmol/L Normal 3.5 - 5.3 [facility] Comment on above: Performed By: #### C MP #### [address] [address] Protein [Mass/Vol] 6.7 g/dL Normal 6.4 - 8.2 [facility] Comment on above: Performed By: #### C MP #### [address] [address] Sodium [Moles/Vol] 140 mmol/L Normal 136 - 145 [facility] Comment on above: Performed By: #### C MP #### [address] [address] Urea nitrogen [Mass/Vol] 11 mg/dL Normal 6 - 23 [facility] Comment on above: Performed By: #### C MP #### [address] [address] Complete Blood Count + Diffe jorden 04-09-2022 Basophils/100 WBC (Bld) 0.5 % 0.0 - 2.0 [facility] [facility] Work Phone: Erythrocyte distribution width (RBC) [Ratio] 11.8 % See Below [facility] Work Phone: Comment on above: Reference Range: 11. 5 - 14.5 Hematocrit (Bld) [Volume fraction] 42.9 % See Below [facility] Work Phone: Comment on above: Reference Range: 36. 0 - 46.0 Hemoglobin (Bld) [Mass/Vol] 13.8 g/dL See Below [facility] Work Phone: Comment on above: Reference Range: 12. 0 - 16.0 Lymphocytes/100 WBC (Bld) 37.7 % See Below [facility] Work Phone: Comment on above: Reference Range: 13. 0 - 44.0 MCHC (RBC) [Mass/Vol] 32.2 g/dL See Below [facility] Work Phone: Comment on above: Reference Range: 32. 0 - 36.0 MCV (RBC) [Entitic vol] 95 fL 80 - 100 [facility] Work Phone: Monocytes/100 WBC (Bld) 7.5 % 2.0 - 10.0 [facility] Work Phone: Neutrophils/100 WBC (Bld) 52.7 % See Below [facility] Work Phone: Comment on above: Reference Range: 40. 0 - 80.0 Platelets (Bld) [#/Vol] 130 10*3/uL below low threshold 150 - 450 [facility] Work Phone: RBC (Bld) [#/Vol] 4.50 {x10E12/L} See Below [facility] Work Phone: Comment on above: Reference Range: 4.0 0 - 5.20 WBC (Bld) [#/Vol] 4.4 10*3/uL 4.4 - 11.3 [facility] Work Phone: Complete Blood Count + Differential 0.02 {x10E9/L} See Below [facility] Work Phone: Comment on above: Reference Range: 0.0 0 - 0.10 Complete Blood Count + Differential 0.06 {x10E9/L} See Below [employer] [facility] Work Phone: Comment on above: Reference Range: 0.0 0 - 0.70 Complete Blood Count + Differential 0.33 {x10E9/L} See Below [facility] Work Phone: Comment on above: Reference Range: 0.1 0 - 1.00 Complete Blood Count + Differential 1.66 {x10E9/L} See Below [employer] [facility] Work Phone: Comment on above: Reference Range: 1.2 0 - 4.80 Complete Blood Count + Differential 2.32 {x10E9/L} See Below [employer] [facility] Work Phone: Comment on above: Reference Range: 1.2 0 - 7.70 Percent differential counts (%) should be interpreted in the context of the absolute cell counts (cells/L). Complete Blood Count + Differential 1.4 % 0.0 - 6.0 [employer] [facility] [facility] Work Phone: Complete Blood Count + Differential 0.2 % 0.0 - 0.9 [facility] Work Phone: Comment on above: Immature Granulocyte Count (IG) includes promyelocytes, myelocytes and metamyelocytes but does not include bands. Percent differential counts (%) should be interpreted in the context of the absolute cell counts (cells/L). LIPID PANEL (CORONARY RISK 2 )on 04-09-2022 Cholesterol [Mass/Vol] 161 mg/dL Normal 0 - 199 [facility] Comment on above: Result Comment: . AGE DESIRABLE BORDERLINE HIGH HIGH 0-19 Y 0 - 169 170 - 199 >/= 200 20-24 Y 0 - 189 190 - 224 >/= 225 >24 Y 0 - 199 200 - 239 >/= 240 All ranges are based on fasting samples. Specific therapeutic targets will vary based on patient-specific cardiac risk. . Pediatric guidelines reference:Pediatrics 2011, 128(S5). Adult guidelines reference: NCEP ATPIII Guidelines, ED 2001, 258:2486-97 . Venipuncture immediately after or during the administration of Metamizole may lead to falsely low results. Testing should be performed immediately prior to Metamizole dosing. Performed By: #### L IPID #### [address] [address] Cholesterol in HDL [Mass/Vol] 93.0 mg/dL Normal [facility] Comment on above: Result Comment: . AGE VERY LOW LOW NORMAL HIGH 0-19 Y < 35 < 40 40-45 ---- 20-24 Y ---- < 40 >45 ---- >24 Y ---- < 40 40-60 >60 . Performed By: #### L IPID #### [address] [address] Cholesterol in LDL [Mass/Vol] 47 mg/dL Normal 0 - 99 [facility] Comment on above: Result Comment: . NEAR BORD AGE DESIRABLE OPTIMAL HIGH HIGH VERY HIGH 0-19 Y 0 - 109 --- 110-129 >/= 130 ---- 20-24 Y 0 - 119 --- 120-159 >/= 160 ---- >24 Y 0 - 99 100-129 130-159 160-189 >/=190 . Performed By: #### L IPID #### [address] [address] Cholesterol in VLDL [Mass/Vol] 21 mg/dL Normal 0 - 40 [facility] Comment on above: Performed By: #### L IPID #### [address] [address] Cholesterol.total/Chol esterol in HDL [Mass ratio] 1.7 {ratio} Normal [facility] Comment on above: Result Comment: REF VALUES DESIRABLE < 3.4 HIGH RISK > 5.0 Performed By: #### L IPID #### [address] [address] Triglyceride [Mass/Vol] 104 mg/dL Normal 0 - 149 [facility] Comment on above: Result Comment: . AGE DESIRABLE BORDERLINE HIGH HIGH VERY HIGH 0 D-90 D 19 - 174 ---- ---- ---- 91 D- 9 Y 0 - 74 75 - 99 >/= 100 ---- 10-19 Y 0 - 89 90 - 129 >/= 130 ---- 20-24 Y 0 - 114 115 - 149 >/= 150 ---- >24 Y 0 - 149 150 - 199 200- 499 >/= 500 . Venipuncture immediately after or during the administration of Metamizole may lead to falsely low results. Testing should be performed immediately prior to Metamizole dosing. Performed By: #### L IPID #### [address] [address] Laboratory - Chemistry and C hemistry - challengeon 04-09-2022 Albumin BCP dye [Mass/Vol] 4.5 g/dL 3.4 - 5.0 [facility] Work Phone: ALP [Catalytic activity/Vol] 44 U/L 33 - 110 [facility] Work Phone: ALT With P-5'-P [Catalytic activity/Vol] 17 U/L 7 - 45 [facility] Work Phone: Comment on above: Patients treated wit h Sulfasalazine may generate falsely decreased results for ALT. Anion gap [Moles/Vol] 13 mmol/L 10 - 20 [facility] Work Phone: AST With P-5'-P [Catalytic activity/Vol] 22 U/L 9 - 39 [facility] Work Phone: Bilirubin [Mass/Vol] 0.6 mg/dL 0.0 - 1.2 [facility] Work Phone: Calcium [Mass/Vol] 9.3 mg/dL 8.6 - 10.3 [facility] Work Phone: Chloride [Moles/Vol] 103 mmol/L 98 - 107 [facility] Work Phone: CO2 [Moles/Vol] 28 mmol/L 21 - 32 [facility] Work Phone: Creatinine [Mass/Vol] 0.76 mg/dL See Below [facility] Work Phone: Comment on above: Reference Range: 0.5 0 - 1.05 Glucose [Mass/Vol] 73 mg/dL below low threshold 74 - 99 [facility] Work Phone: Potassium [Moles/Vol] 3.6 mmol/L 3.5 - 5.3 [facility] Work Phone: Protein [Mass/Vol] 6.7 g/dL 6.4 - 8.2 [facility] Work Phone: Sodium [Moles/Vol] 140 mmol/L 136 - 145 [facility] Work Phone: TSH Qn 1.39 m[IU]/L See Below [facility] Work Phone: Comment on above: Reference Range: 0.4 4 - 3.98 TSH testing is performed using different testing methodology at [facility] than at other [facility] hospitals. Direct result comparisons should only be made within the same method. Urea nitrogen [Mass/Vol] 11 mg/dL 6 - 23 [facility] Work Phone: Lipid Panelon 04-09-2022 Cholesterol [Mass/Vol] 161 mg/dL 0 - 199 [email or web address] Work Phone: Comment on above: . AGE DESIRABLE BORD CLAIRE HIGH HIGH 0-19 Y 0 - 169 170 - 199 >/= 200 20-24 Y 0 - 189 190 - 224 >/= 225 >24 Y 0 - 199 200 - 239 >/= 240 All ranges are based on fasting samples. Specific therapeutic targets will vary based on patient-specific cardiac risk.. Pediatric guidelines reference:Pediatrics 2011, 128(S5). Adult guidelines reference: NCEP ATPIII Guidelines, ED 2001, 258:5056-97. Venipuncture immediately after or during the administration of Metamizole may lead to falsely low results. Testing should be performed immediately prior to Metamizole dosing. Cholesterol in HDL [Mass/Vol] 93.0 mg/dL [facility] Work Phone: Comment on above: . AGE VERY LOW LOW N ORMAL HIGH 0-19 Y < 35 < 40 40-45 ---- 20-24 Y ---- < 40 >45 ---- >24 Y ---- < 40 40-60 >60. Cholesterol in LDL [Mass/Vol] 47 mg/dL 0 - 99 [email or web address] Work Phone: Comment on above: . NEAR BORD AGE ISABEL RABLE OPTIMAL HIGH HIGH VERY HIGH 0-19 Y 0 - 109 --- 110-129 >/= 130 ---- 20-24 Y 0 - 119 --- 120-159 >/= 160 ---- >24 Y 0 - 99 100-129 130-159 160-189 >/=190. Cholesterol.total/Chol esterol in HDL [Mass ratio] 1.7 {ratio} [facility] Work Phone: Comment on above: REF VALUESDESIRABLE < 3.4HIGH RISK > 5.0 Triglyceride [Mass/Vol] 104 mg/dL 0 - 149 [facility] Work Phone: Comment on above: . AGE DESIRABLE BORD CLAIRE HIGH HIGH VERY HIGH 0 D-90 D 19 - 174 ---- ---- ----91 D- 9 Y 0 - 74 75 - 99 >/= 100 ---- 10-19 Y 0 - 89 90 - 129 >/= 130 ---- 20-24 Y 0 - 114 115 - 149 >/= 150 ---- >24 Y 0 - 149 150 - 199 200- 499 >/= 500. Venipuncture immediately after or during the administration of Metamizole may lead to falsely low results. Testing should be performed immediately prior to Metamizole dosing. Lipid Panel 21 mg/dL 0 - 40 [facility] Work Phone: No Panel Informationon 04-09 >90 >90 [facility] Work Phone: Comment on above: CALCULATIONS OF TIFFANY MATED GFR ARE PERFORMED USING THE 2020 CKD-EPI STUDY REFIT EQUATION WITHOUT THE RACE VARIABLE FOR THE IDMS-TRACEABLE CREATININE METHODS.https://jasn.asnjournals.org/content//A SN.7976006688 TSH WITH REFLEX TO FREE T4 I F ABNORMALon 04-09-2022 TSH Qn 1.39 m[IU]/L Normal 0.44 - 3.98 [facility] Comment on above: Result Comment: TSH testing is performed using different testing methodology at [facility] than at other [facility]. Direct result comparisons should only be made within the same method. Performed By: #### T HYDS #### [address] [address] VITAMIN B12on 04-09-2022 Cobalamin (Vitamin B12) [Mass/Vol] 474 pg/mL Normal 211 - 911 [facility] Comment on above: Performed By: #### V TB12 #### [address] [address] Vitamin B12, Serumon 022 Cobalamin (Vitamin B12) [Mass/Vol] 474 pg/mL 211 - 911 [facility] Work Phone: Office Visiton 04-07-2022 Follow-up visit Diagnoses/Problems Encounter for preventive health examination (V70.0) (Z00.00) ADD (attention deficit disorder) (314.00) (F98.8) Orders ADD (attention deficit disorder), Health Maintenance Complete Blood Count + Differential; Status:Active; Requested for:[id number]; Comprehensive Metabolic Panel; Status:Active; Requested for:[id number]; Drug Screen, Urine With Reflex To Confirmation; Status:Active; Requested for:[id number]; Lipid Panel; Status:Active; Requested for:[id number]; TSH WITH REFLEX TO FREE T4 IF ABNORMAL; Status:Active; Requested for:[id number]; Vitamin B12, Serum; Status:Active; Requested for:[id number]; SocHx: Never smoker Tobacco Use Screening; Status:Complete; Done: [id number] Provider Impressions Will check some labs/urine, get her old records. F/u in 2 weeks and we will consider starting medication at that time. 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 Overall she is doing well. She states that she is interested in restarting ADHD medication. Has been off since she had kids - about 4 years since she last took something. She was on Vyvanse on before. She has tried straterra and did not tolerate that. She was on medication for at least 6-7 years. She was seen in [place] for it in the past. She is having issues with focus, concentration. States that she is considering going back to work and would really find it helpful to be on medication to help with that. Review of Systems Constitutional: Negative except as documented in history of present illness. Respiratory: Negative except as documented in history of present illness. Cardiovascular: Negative except as documented in history of present illness. Past Medical History History of attention deficit hyperactivity disorder (ADHD) (V11.8) (Z86.59) History of methicillin resistant Staphylococcus aureus infection (V12.04) (Z86.14) Rt leg, 2006 Surgical History History of Appendectomy 2005 History of Breast augmentation 2014 History of [place] tooth extraction x4, 2010 Social History Caffeine use (V49.89) (Z78.9) Never smoker Occasional alcohol use Allergies No Known Drug Allergies Recorded By: Tonya Kearney; 04/07/2022 3:19:18 PM Vitals Vital Signs Recorded: [id number] 03:16PM Heart Rate82 Ivtdmfkt985, LUE, Sitting Miqadlrsy45, LUE, Sitting Height5 ft 7.75 in Uuytng274 lb 8 oz BMI Evppczvmky16.76 kg/m2 BSA Calculated1.66 Tobacco Useb) No Falls Screening (Age 18+)a) No falls within the last year O2 Kvlrjtduph13 Physical Exam General: Alert and oriented, No acute distress. Respiratory: Lungs are clear to auscultation, Respirations are non-labored, Breath sounds are equal. Cardiovascular: Normal rate, Regular rhythm, No murmur. Integumentary: Warm, Dry. Neurologic: Alert, Oriented, No focal deficits. Psychiatric: Cooperative, Appropriate mood AND affect. Signatures Electronically signed by : Tamika Sandhu MD; Apr 07 2022 5:07PM EST (Author) Normal [email or web address] Tobacco Screening.on Fall risk assessment a) No falls within the last year [facility] Work Phone: Tobacco use status [facility]PHS b) No [facility] Work Phone: CT PULMONARY ARTERIESon CT PULMONARY ARTERIES EXAMINATION: CT PULMONARY ARTERIES HISTORY: ORDERING SYSTEM PROVIDED HISTORY: Pulmonary embolism (PE) suspected, neg D-dimer, TECHNOLOGIST PROVIDED HISTORY: Illness/Other Reason for exam: Pulmonary embolism (PE) suspected, neg D-dimer Encounter Type: Initial Additional signs and symptoms: Pulmonary embolism (PE) suspected, neg D-dimer ORDERING SYSTEM PROVIDED DIAGNOSIS CODES: COMPARISON: X-ray chest 12/02/2021. TECHNIQUE: CT angiography of the pulmonary arteries following the administration of intravenous contrast. Coronal and sagittal MIP images were performed. Dose reduction techniques were achieved by using automated exposure control and/or adjustment of mA and/or kV according to patient size and/or use of iterative reconstruction technique. CONTRAST: IOPAMIDOL 76 % INTRAVENOUS SOLUTION - 75 mL, FINDINGS: The heart is normal in size. There is no abnormal pericardial effusion. The thoracic aorta is patent and nondilated. There is no aortic dissection flap. The pulmonary arteries opacify normally with no intraluminal filling defect identified. There are no enlarged thoracic lymph nodes. There is residual thymic tissue. The tracheobronchial tree appears patent. There is very minimal dependent pulmonary atelectasis. There is no lung consolidation or lung mass. There is no pleural effusion. There is no pneumothorax. Minimal biapical pleural thickening is noted. The imaged upper abdomen is within the limits of normal. There is no acute osseous pathology. IMPRESSION: No visible pulmonary embolism. No active lung disease. Workstation ID: [id number] Dictated by: RASHAWN CHAVES on WedDec 02, 2021 6:10:33 PM EDT Transcribed by: RASHAWN CHAVES on WedDec 02, 2021 6:10:33 PM EDT Finalized by: RASHAWN CHAVES on WedDec 02, 2021 6:10:33 PM EDT [facility] Comment on above: Order Comment: Injur y/Trauma or Illness?:Illness/Other How long have you had these symptoms (acute/chronic)?:Acute Reason for exam?:Pulmonary embolism (PE) suspected, neg D-dimer Type of Exam?:Initial Additional signs and symptoms?:Pulmonary embolism (PE) suspected, neg D-dimer XR CHEST PA/APon 12-02-2021 XR CHEST PA/AP EXAMINATION: XR CHEST PA/AP HISTORY: ORDERING SYSTEM PROVIDED HISTORY: chest pain, TECHNOLOGIST PROVIDED HISTORY: Illness/Other Reason for exam: chest pain Cancer History: unk Surgery, RadiationHistory: breast implants Encounter Type: Initial Additional signs and symptoms: chest pain ORDERING SYSTEM PROVIDED DIAGNOSIS CODES: COMPARISON: None FINDINGS: One-view chest x-ray. No pneumothorax, pleural effusion or focal airspace consolidation. Heart is normal in size. Bony thorax is unremarkable. IMPRESSION: No acute cardiopulmonary process. ST/klb Workstation ID: [id number] Dictated by: REBECCA KIRK on WedDec 02, 2021 4:57:59 PM EDT Transcribed by: KORINA JENNINGS on WedDec 02, 2021 5:09:44 PM EDT Finalized by: REBECCA KIRK on WedDec 02, 2021 7:16:44 PM EDT [facility] Comment on above: Order Comment: Injur y/Trauma or Illness?:Illness/Other How long have you had these symptoms (acute/chronic)?:Acute Reason for exam?:chest pain History of cancer?:unk Surgeries, chemotherapy, or radiation?:breast implants Type of Exam?:Initial Additional signs and symptoms?:chest pain CNTHERAPYon 01-03-2021 CNTHERAPY OT/PT/Speech Visit ( PTWS) ----- MARIBEL CROCKETT ([id number]) 1990 F Date Time Provider Department 01/03/21 7:30 AM TREVOR MIRELES PTDULCE Date Time Provider Department Vickery 01/03/2021 7:30 AM [id number], CARA PTDULCE [place] Reason for Visit: PT Eval [747] PT Discharge [752] Primary Visit Diagnosis:Female genital prolapse, unspecified type [N81.9] Other Visit Diagnosis:Muscle weakness [M62.81] Allergies As of Date: 01/03/2021 (No Known Allergies) Date Reviewed: 06/09/2013 Reviewed by: Pattie Le)(Hist) KJ Goldstein - Fully Assessed Prescriptions as of 03/04/2021 - bimatoprost(LATISSE 0.03 % EYELASH DROPS) Once dialy as directed to upper lash line Progress Notes: Trevor Mireles PT 03/04/2021 11:23 AM Addendum 03/04/2021 [facility] PHYSICAL THERAPY DISCONTINUANCE OF CARE Plan of Care Period: Start of Care Date: 01/03/21 Last Visit Date: 01/03/2021 Therapy Program: Patient did not return for follow up care as planned. Please refer to last visit note for interventions provided for this episode of care. Assessment: Unable to formally assess goal achievement. Reason for Discontinuation of Care: Patient has not returned to therapy or scheduled additional follow-up appointments. Trevor Mireles PT Episode Visit Count: 1 Therapist That Will Oversee The Plan Of Care: Trevor Mireles Start of Care Date: 01/03/21 Onset Date: 12/13/20 Patient Identified by Name and Date of : Yes REHABILITATION AND SPORTS THERAPY PHYSICAL THERAPY EVALUATION PLAN OF CARE: Assessment: Maribel Crockett presents with the chief complaint of pelvic organ prolapse. She presents with impairments of decreased core strength; feeling of pelvic pressure. Pelvic floor muscle assessment deferred due to current , can perform after delivery once cleared by physician. She may benefit from skilled therapy services to increase strength, improve pelvic organ prolapse symptoms, and improve overall functional activities. Prognosis: Good Good due to: current objective clinical presentation Goals for Episode of Care: created on 01/03/21 through 03/04/21 [place] in home exercise program. Patient will demonstrate increase in core strength to at least 4/5 during manual muscle testing in order to improve function for prior functional tasks. Incontinence: Increase strength of pelvic floor to Power: at least 3/5-TBA Patient demonstrates ability to perform diaphragmatic breathing / relaxation Patient demonstrates ability to correctly isolate pelvic floor muscles-TBA Patient displays improved muscle dynamics of pelvic floor including ability to lengthen muscles-TBA Patient reports improved pelvic organ prolapse symptoms compared to baseline. Patient Goals: improve pelvic pressure, "know how to relax pelvic muscles for delivery" Planned Interventions, Frequency, and Duration: Current Frequency: 1x/week Duration: 3 weeks (reassess at 3 weeks and progress as indicated) Total Number of Visits Planned: 3 Planned Treatment Interventions: Therapeutic exercise (49259);Manual therapy (38353);Self-long-term management (22640);Patient/Family/Ca regiver Education PLAN FOR NEXT VISIT: progress strengthening exercises as tolerated Patient demonstrates good understanding of plan of care and treatment. The above goals and plan of care were discussed and agreed upon by patient/family. SUBJECTIVE: Pt is 32 weeks . Pt reports going to the hospital a few weeks ago, thinking she was having the baby due to having a bulge in vaginal canal. Pt reports SKIN TANNER determined it was prolapse. Pt reports wearing belly belt, which helps with pressure. 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 Intake Information: Prescription present Previous Treatment: None Falls Interview: No positive findings with falls interview Aquatic Screen: No PAST MEDICAL HISTORY Diagnosis Date - PMH - PAST MEDICAL HISTORY OF stap Mers[place] PAST SURGICAL HISTORY Procedure Laterality Date - PAST SURGICAL HISTORY OF wisdom teeth Pain: Pain Pain Level: 0 Pain Location: (pelvic floor) Post Treatment Pain Post Treatment Pain Level: No Change PROMIS Scales T-scores: mean of general population = 50. 5 points is clinically meaningfully difference Percentiles provide an indication of how the patient's score ranks in relation to the general population. Higher percentile rankings indicate better function/quality of life. 50th percentile is the average of the general (more content not included)... Normal [facility] Prolactin Lvlon 11-03-2017 Protein mass conc 14.3 ng/mL Normal [facility] Comment on above: Result Comment: Male 4.0 - 15.2 Female 4.8 - 23.3Performed At: [facility] [id number] [place], [place] [id number] Vincent PhD Ph:[phone] Performed By: #### 1 [id number] ####IBRAHIMA Monsalve Outs [id number] [place] [address] Auto Diffon 11-02-2017 Basophils Auto #/vol (Bld) 0.0 E3/mcL Normal 0.0-0.2 [facility] Comment on above: Order Comment: Order Added by Discern Expert. Performed By: #### 2 [id number] ####IBRAHIMA [address] [place] [address] Basophils/100 WBC Auto (Bld) 0.3 % Normal 0.0-2.0 [facility] Comment on above: Order Comment: Order Added by Discern Expert. Performed By: #### 2 [id number] ####IBRAHIMA [address] [place] [address] Eos Absolute 0.1 E3/mcL Normal 0.0-0.7 [facility] Comment on above: Order Comment: Order Added by Discern Expert. Performed By: #### 2 [id number] ####IBRAHIMA [address]FzzHsgl[address] [place] [address] Eosinophils/100 WBC Auto (Bld) 1.2 % Normal 0.0-11.0 [facility] Comment on above: Order Comment: Order Added by Discern Expert. Performed By: #### 2 [id number] ####IBRAHIMA [address] [place] [address] Lymphocytes Auto #/vol (Bld) 2.0 E3/mcL Normal 1.2-3.4 [facility] Comment on above: Order Comment: Order Added by Discern Expert. Performed By: #### 2 [id number] ####IBRAHIMA [address] [place] [address] Lymphocytes/100 WBC Auto (Bld) 33.9 % Normal 20.0-55.0 [facility] Comment on above: Order Comment: Order Added by Discern Expert. Performed By: #### 2 [id number] ####IBRAHIMA [address] [place] [address] Amite Absolute 0.4 E3/mcL Normal 0.0-0.7 [facility] Comment on above: Order Comment: Order Added by Discern Expert. Performed By: #### 2 [id number] ####IBRAHIMA [address] [place] [address] Monocytes/100 WBC Auto (Bld) 7.1 % Normal 0.0-10.0 [facility] Comment on above: Order Comment: Order Added by Discern Expert. Performed By: #### 2 [id number] ####IBRAHIMA [address] [place] [address] Neutro Absolute 3.3 E3/mcL Normal 1.4-6.5 [facility] Comment on above: Order Comment: Order Added by Discern Expert. Performed By: #### 2 [id number] ####IBRAHIMA [address] [place] [address] Neutro Auto 57.5 % Normal 37.0-75.0 [facility] Comment on above: Order Comment: Order Added by Discern Expert. Performed By: #### 2 [id number] ####IBRAHIMA [address] [place] [address] CBC w/ Auto Diffon 8 Erythrocyte distribution width Auto Ratio (RBC) 12.4 % Normal 11.5-14.5 [facility] Comment on above: Performed By: #### 2 [id number] ####IBRAHIMA [address] [place] [id number] Hematocrit Auto Volume Fraction (Bld) 43.8 % Normal 36.0-48.0 [facility] Comment on above: Performed By: #### 2 [id number] ####IBRAHIMA [address] [place] [id number] Hemoglobin mass conc (Bld) 14.5 g/dL Normal 12.0-16.0 [facility] Comment on above: Performed By: #### 2 [id number] ####IBRAHIMA [address] [place] [id number] MCH Auto Entitic mass (RBC) 31.0 pg Normal 27.0-31.0 [facility] Comment on above: Performed By: #### 2 [id number] ####IBRAHIMA [address] [place] [address] MCHC Auto mass conc (RBC) 33.2 g/dL Normal 33.0-37.0 [facility] Comment on above: Performed By: #### 2 [id number] ####IBRAHIMA [address] [place] [id number] MCV Auto Entitic volume (RBC) 93.5 fL Normal 78.0-100.0 [facility] Comment on above: Performed By: #### 2 [id number] ####IBRAHIMA [address] [place] [id number] Platelet mean volume Auto Entitic volume (Bld) 10.0 fL Normal 7.4-11.0 [facility] Comment on above: Performed By: #### 2 [id number] ####IBRAHIMA [address] [place] [id number] Platelets Auto #/vol (Bld) 158 E3/mcL Normal 130-400 [facility] Comment on above: Performed By: #### 2 [id number] ####IBRAHIMA [address] [place] [id number] RBC Auto #/vol (Bld) 4.68 E6/mcL Normal 3.90-5.40 [facility] Comment on above: Performed By: #### 2 [id number] ####IBRAHIMA [address] [place] [id number] WBC Auto #/vol (Bld) 5.8 E3/mcL Normal 3.6-11.0 [facility] Comment on above: Performed By: #### 2 [id number] ####IBRAHIMA [address] [place] [address] CMPon 11-02-2017 Albumin mass conc 4.1 g/dL Normal 3.2-5.0 [facility] Comment on above: Performed By: #### 2 [id number] ####IBRAHIMA [address] [place] [address] Albumin/Globulin mass ratio 1.6 {ratio} Normal 1.1-1.9 [facility] Comment on above: Performed By: #### 2 [id number] ####IBRAHIMA [address] [place] [address] Alk Phos 46 Int._Unit/L Normal 42-121 [facility] Comment on above: Performed By: #### 2 [id number] ####IBRAHIMA [address] [place] [address] ALT enzyme act/vol 18 Int._Unit/L Normal 10-40 [facility] Comment on above: Performed By: #### 2 [id number] ####IBRAHIMA [id number] [place] [address] AST enzyme act/vol 24 Int._Unit/L Normal 10-42 [facility] Comment on above: Performed By: #### 2 [id number] ####IBRAHIMA [id number] [place] [address] Bili Total 0.7 mg/dL Normal 0.2-1.0 [facility] Comment on above: Performed By: #### 2 [id number] ####IBRAHIMA [id number] [place] [address] Creatinine mass conc 0.7 mg/dL Normal 0.6-1.3 [facility] Comment on above: Performed By: #### 2 [id number] ####IBRAHIMA [id number] [place] [address] Globulin Calculated mass conc (S) 2.6 g/dL Normal 2.0-4.0 [facility] Comment on above: Performed By: #### 2 [id number] ####IBRAHIMA [id number] [place] [address] Protein mass conc 6.7 g/dL Normal 6.4-8.3 [facility] Comment on above: Performed By: #### 2 [id number] ####IBRAHIMA [id number] [place] [address] Urea nitrogen mass conc 6 mg/dL Low 7-18 [facility] Comment on above: Performed By: #### 2 [id number] ####IBRAHIMA [id number] [place] [address] Urea nitrogen/Creatinine mass ratio 8.6 ratio Normal 5.4-30.0 [facility] Comment on above: Performed By: #### 2 [id number] ####IBRAHIMA CuhHkha1039 [place] [address] Calcium mass conc 9.5 mg/dL Normal 8.4-10.2 [facility] Comment on above: Performed By: #### 2 [id number] ####IBRAHIMA UsrGrby5610 [place] [address] Chloride molar conc 105 mmol/L Normal 98-107 [facility] Comment on above: Performed By: #### 2 [id number] ####IBRAHIMAKadeem [id number] [place] [address] CO2 molar conc 27.9 mmol/L Normal 24.0-30.0 [facility] Comment on above: Performed By: #### 2 [id number] ####IBRAHIMAKadeem MathewPqpMxjk5907 [place] [address] Glucose mass conc 89 mg/dL Normal 70-99 [facility] Comment on above: Performed By: #### 2 [id number] ####IBRAHIMAKadeem [id number] [place] [address] Potassium molar conc 3.9 mmol/L Normal 3.5-5.1 [facility] Comment on above: Performed By: #### 2 [id number] ####IBRAHIMAKadeem [id number] [place] [address] Sodium molar conc 141 mmol/L Normal 136-145 [facility] Comment on above: Performed By: #### 2 [id number] ####IBRAHIMAKadeem [id number] [place] [address] Folateon 11-02-2017 Folate Lvl 17.20 ng/mL Normal >=4.00 [facility] Comment on above: Result Comment: The WHO Technical Consultation on folate and vitamin B12 deficiencieshas determined that deficient folate concentrations are considered to beless than 4ng/ml. Performed By: #### 2 [id number] ####IBRAHIMA [id number] [place] [address] Lipid Profileon 11-02-2017 Cholesterol in HDL mass conc 103 mg/dL Normal >=41 [facility] Comment on above: Performed By: #### 3 [id number] ####IBRAHIMAKadeem [id number] [place] [address] Cholesterol in LDL mass conc 69 mg/dL Normal 0-130 [facility] Comment on above: Result Comment: <100 [id number] NEAR / ABOVE [id number] 159 BORDERLINE [id number] HIGH>190 VERY HIGHCALC LDL NOT VALID WHEN TRIGLYCERIDE IS >400 MG/DL Performed By: #### 3 [id number] ####IBRAHIMAKadeem [id number] [place] [address] Cholesterol in VLDL mass conc 9 mg/dL Normal [facility] Comment on above: Performed By: #### 3 [id number] ####IBRAHIMAKadeem [id number] [place] [address] Cholesterol mass conc 181 mg/dL Normal 50-200 [facility] Comment on above: Result Comment: TOTA L CHOLEESTEROL: <200 NORMAL 200 - 239 BORDERLINE HIGH >240 HIGH Performed By: #### 3 [id number] ####IBRAHIMAKadeem [id number] [place] [address] Triglyceride mass conc 45 mg/dL Normal 35-150 [facility] Comment on above: Result Comment: <150 [id number] BORDERLINE [id number] HIGH>500 VERY HIGH Performed By: #### 3 [id number] ####IBRAHIMA [id number] [place] [address] TSHon 11-02-2017 Thyrotropin Qn 2.77 mIU/m Normal 0.30-5.60 [facility] Comment on above: Performed By: #### 2 [id number] ####IBRAHIMA [id number] [place] [address] Vit B12on 11-02-2017 Cobalamin (Vitamin B12) mass conc 361 pg/mL Normal 180-914 [facility] Comment on above: Performed By: #### 2 [id number] ####IBRAHIMA Mkaezmal8279 [place] [address] Vitamin D 25 Hydroxyon 11-02 Vitamin D 25 Hydroxy 37.0 ng/mL Normal 30.0-100.0 [facility] Comment on above: Performed By: #### 5 [id number] ####IBRAHIMA [id number] [place] [address] eGFRon 11-02-2017 eGFR AA >60 Normal [facility] Comment on above: Order Comment: Order added by Discern Expert. Performed By: #### 1 [id number] ####IBRAHIMA [id number] [place] [address] GFR/1.73 sq M predicted among non-blacks MDRD vol rate/area (S/P/Bld) mL/min/{1.73_m2} Normal [facility] Comment on above: Order Comment: Order added by Discern Expert. Performed By: #### 1 [id number] ####IBRAHIMA JxdPmfn7321 [place] [address] Vital Signs Date Time Vital Sign Value Performing Clinician Facility 11-23-2024 15:34-0400 Body height 172.72 cm No Primary Care Physician [facility] 11-23-2024 15:32-0400 Body mass index (BMI) [Ratio] 22.1 kg/m2 No Primary Care Physician [facility] 11-23-2024 15:32-0400 Body weight 65.99 kg No Primary Care Physician [facility] 11-23-2024 15:32-0400 Diastolic blood pressure 64 mm[Hg] No Primary Care Physician [facility] 11-23-2024 15:32-0400 Systolic blood pressure 99 mm[Hg] No Primary Care Physician [facility] 11-21-2024 08:40-0400 Diastolic blood pressure 64 mm[Hg] No Primary Care Physician [facility] 11-21-2024 08:40-0400 Heart rate 91 /min No Primary Care Physician [facility] 11-21-2024 08:40-0400 Systolic blood pressure 99 mm[Hg] No Primary Care Physician [facility] 11-21-2024 08:39-0400 Body temperature 97.7 [degF] No Primary Care Physician [facility] 11-21-2024 08:39-0400 Respiratory rate 16 /min No Primary Care Physician [facility] 11-21-2024 08:39-0400 SaO2% (BldA) [Mass fraction] 95 % No Primary Care Physician [facility] 11-21-2024 08:32-0400 Body height 172.72 cm No Primary Care Physician [facility] 11-21-2024 08:32-0400 Body mass index (BMI) [Ratio] 21.6 kg/m2 No Primary Care Physician [facility] 11-21-2024 08:32-0400 Body weight 64.5 kg No Primary Care Physician [facility] 11-08-2024 15:43-0400 Body height 171.45 cm No Primary Care Physician [facility] 11-08-2024 15:43-0400 Body mass index (BMI) [Ratio] 22.1 kg/m2 No Primary Care Physician [facility] 11-08-2024 15:43-0400 Body weight 64.92 kg No Primary Care Physician [facility] 11-08-2024 15:43-0400 Diastolic blood pressure 64 mm[Hg] No Primary Care Physician [facility] 11-08-2024 15:43-0400 Systolic blood pressure 118 mm[Hg] No Primary Care Physician [facility] 10-23-2024 15:11-0400 Body height 171.45 cm No Primary Care Physician [facility] 10-23-2024 15:11-0400 Body mass index (BMI) [Ratio] 22.2 kg/m2 No Primary Care Physician [facility] 10-23-2024 15:11-0400 Body weight 65.43 kg No Primary Care Physician [facility] 10-23-2024 15:11-0400 Diastolic blood pressure 60 mm[Hg] No Primary Care Physician [facility] 10-23-2024 15:11-0400 Systolic blood pressure 95 mm[Hg] No Primary Care Physician [facility] 10-17-2024 09:36-0400 Body height 171.45 cm No Primary Care Physician [facility] 10-17-2024 09:35-0400 Body mass index (BMI) [Ratio] 21.8 kg/m2 No Primary Care Physician [facility] 10-17-2024 09:35-0400 Body temperature 98.2 [degF] No Primary Care Physician [facility] 10-17-2024 09:35-0400 Body weight 64.21 kg No Primary Care Physician [facility] 10-17-2024 09:35-0400 Diastolic blood pressure 59 mm[Hg] No Primary Care Physician [facility] 10-17-2024 09:35-0400 Heart rate 82 /min No Primary Care Physician [facility] 10-17-2024 09:35-0400 Respiratory rate 18 /min No Primary Care Physician [facility] 10-17-2024 09:35-0400 SaO2% (BldA) [Mass fraction] 98 % No Primary Care Physician [facility] 10-17-2024 09:35-0400 Systolic blood pressure 90 mm[Hg] No Primary Care Physician [facility] 10-04-2024 10:35-0400 Body height 171.45 cm No Primary Care Physician [facility] 10-04-2024 10:35-0400 Body mass index (BMI) [Ratio] 21.4 kg/m2 No Primary Care Physician [facility] 10-04-2024 10:35-0400 Body weight 63.04 kg No Primary Care Physician [facility] 10-04-2024 10:35-0400 Diastolic blood pressure 70 mm[Hg] No Primary Care Physician [facility] 10-04-2024 10:35-0400 Systolic blood pressure 109 mm[Hg] No Primary Care Physician [facility] 10-02-2024 14:24-0400 Body height 171.45 cm No Primary Care Physician [facility] 10-02-2024 14:24-0400 Body mass index (BMI) [Ratio] 21.4 kg/m2 No Primary Care Physician [facility] 10-02-2024 14:24-0400 Body weight 63.16 kg No Primary Care Physician [facility] 10-02-2024 14:24-0400 Diastolic blood pressure 65 mm[Hg] No Primary Care Physician [facility] 10-02-2024 14:24-0400 Systolic blood pressure 96 mm[Hg] No Primary Care Physician [facility] 09-06-2024 14:13-0400 Body mass index (BMI) [Ratio] 20.7 kg/m2 No Primary Care Physician [facility] 09-06-2024 14:13-0400 Body weight 61 kg No Primary Care Physician [facility] 09-06-2024 14:13-0400 Diastolic blood pressure 70 mm[Hg] No Primary Care Physician [facility] 09-06-2024 14:13-0400 Systolic blood pressure 106 mm[Hg] No Primary Care Physician [facility] 08-09-2024 15:05-0400 Body mass index (BMI) [Ratio] 20 kg/m2 No Primary Care Physician [facility] 08-09-2024 15:05-0400 Body weight 58.96 kg No Primary Care Physician [facility] 08-09-2024 15:05-0400 Diastolic blood pressure 65 mm[Hg] No Primary Care Physician [facility] 08-09-2024 15:05-0400 Systolic blood pressure 103 mm[Hg] No Primary Care Physician [facility] 07-14-2024 13:28-0400 Body mass index (BMI) [Ratio] 19.4 kg/m2 No Primary Care Physician [facility] 07-14-2024 13:28-0400 Body weight 57.2 kg No Primary Care Physician [facility] 07-14-2024 13:28-0400 Diastolic blood pressure 75 mm[Hg] No Primary Care Physician [facility] 07-14-2024 13:28-0400 Systolic blood pressure 115 mm[Hg] No Primary Care Physician [facility] 06-09-2024 10:15-0500 Body mass index (BMI) [Ratio] 18.7 kg/m2 No Primary Care Physician [facility] 06-09-2024 10:15-0500 Body weight 55.05 kg No Primary Care Physician [facility] 06-09-2024 10:15-0500 Diastolic blood pressure 80 mm[Hg] No Primary Care Physician [facility] 06-09-2024 10:15-0500 Systolic blood pressure 116 mm[Hg] No Primary Care Physician [facility] 03-28-2024 11:29-0500 Body height 170.2 cm Tamika Sandhu MD Work Phone: [facility] 03-28-2024 11:29-0500 Body mass index (BMI) [Ratio] 18.43 kg/m2 Tamika Sandhu MD Work Phone: [facility] 03-28-2024 11:29-0500 Body weight 53.38 kg Tamika Sandhu MD Work Phone: [facility] 03-28-2024 11:29-0500 Diastolic blood pressure 64 mm[Hg] Tamika Sandhu MD Work Phone: [facility] 03-28-2024 11:29-0500 Heart rate 117 /min Tamika Sandhu MD Work Phone: [facility] 03-28-2024 11:29-0500 SaO2% (BldA) [Mass fraction] 99 % Tamika Sandhu MD Work Phone: [facility] 03-28-2024 11:29-0500 Systolic blood pressure 111 mm[Hg] Tamika Sandhu MD Work Phone: [facility] 12-17-2023 09:04-0400 Body height 170.2 cm Tamika Sandhu MD Work Phone: [facility] 12-17-2023 09:04-0400 Body mass index (BMI) [Ratio] 18.34 kg/m2 Tamika Sandhu MD Work Phone: [facility] 12-17-2023 09:04-0400 Body weight 53.12 kg Tamika Sandhu MD Work Phone: [facility] 12-17-2023 09:04-0400 Diastolic blood pressure 62 mm[Hg] Tamika Sandhu MD Work Phone: [facility] 12-17-2023 09:04-0400 Heart rate 93 /min Tamika Sandhu MD Work Phone: [facility] 12-17-2023 09:04-0400 SaO2% (BldA) [Mass fraction] 99 % Tamika Sandhu MD Work Phone: [facility] 12-17-2023 09:04-0400 Systolic blood pressure 96 mm[Hg] Tamika Sandhu MD Work Phone: [facility] 06-18-2023 10:53-0500 Body height 170.2 cm Tamika Sandhu MD Work Phone: [facility] 06-18-2023 10:53-0500 Body mass index (BMI) [Ratio] 18.2 kg/m2 Tamika Sandhu MD Work Phone: [facility] 06-18-2023 10:53-0500 Body weight 52.71 kg Tamika Sandhu MD Work Phone: [facility] 06-18-2023 10:53-0500 Diastolic blood pressure 70 mm[Hg] Tamika Sandhu MD Work Phone: [facility] 06-18-2023 10:53-0500 Heart rate 120 /min Tamika Sandhu MD Work Phone: [facility] 06-18-2023 10:53-0500 Systolic blood pressure 108 mm[Hg] Tamika Sandhu MD Work Phone: [facility] 05-07-2023 09:12-0500 Body height 170.2 cm Melissa Lin [employer] Work Phone: [facility] 05-07-2023 09:12-0500 Body mass index (BMI) [Ratio] 18.01 kg/m2 Melissa Lin [employer] Work Phone: [facility] 05-07-2023 09:12-0500 Body temperature 97.59 [degF] Melissa Lin [employer] Work Phone: [facility] 05-07-2023 09:12-0500 Body weight 52.16 kg Melissa Alvesta [employer] Work Phone: [facility] 05-07-2023 09:12-0500 Diastolic blood pressure 73 mm[Hg] Melissa Riley [employer] Work Phone: [facility] 05-07-2023 09:12-0500 Heart rate 112 /min Melissa Riley [employer] Work Phone: [facility] 05-07-2023 09:12-0500 Respiratory rate 16 /min Melissa Riley [employer] Work Phone: [facility] 05-07-2023 09:12-0500 SaO2% (BldA) [Mass fraction] 96 % Melissa Riley [employer] Work Phone: [facility] 05-07-2023 09:12-0500 Systolic blood pressure 110 mm[Hg] Melissa Riley [employer] Work Phone: [facility] 12-14-2022 09:29-0400 Body height 171.5 cm Tamika Sandhu MD Work Phone: [facility] 12-14-2022 09:29-0400 Body mass index (BMI) [Ratio] 17.9 kg/m2 Tamika Sandhu MD Work Phone: [facility] 12-14-2022 09:29-0400 Body weight 52.62 kg Tamika Sandhu MD Work Phone: [facility] 12-14-2022 09:29-0400 Diastolic blood pressure 76 mm[Hg] Tamika Sandhu MD Work Phone: [facility] 12-14-2022 09:29-0400 Heart rate 92 /min Tamika Sandhu MD Work Phone: [facility] 12-14-2022 09:29-0400 Systolic blood pressure 116 mm[Hg] Tamika Sandhu MD Work Phone: [facility] 09-01-2022 10:05-0400 Body height 171.5 cm Tamika Sandhu MD Work Phone: [facility] 09-01-2022 10:05-0400 Body mass index (BMI) [Ratio] 17.36 kg/m2 Tamika Sandhu MD Work Phone: [facility] 09-01-2022 10:05-0400 Body weight 51.03 kg Tamika Sandhu MD Work Phone: [facility] 09-01-2022 10:05-0400 Diastolic blood pressure 70 mm[Hg] Tamika Sandhu MD Work Phone: [facility] 09-01-2022 10:05-0400 Heart rate 100 /min Tamika Sandhu MD Work Phone: [facility] 09-01-2022 10:05-0400 SaO2% (BldA) [Mass fraction] 99 % Tamika Sandhu MD Work Phone: [facility] 09-01-2022 10:05-0400 Systolic blood pressure 112 mm[Hg] Tamika Sandhu MD Work Phone: [facility] 04-21-2022 10:04-0500 Body height 172.09 cm Tamika Sandhu Work Phone: [facility] Work Phone: 04-21-2022 10:04-0500 Body mass index (BMI) [Ratio] 19.08 kg/m2 Tamika Sandhu Work Phone: [facility] Work Phone: 04-21-2022 10:04-0500 Body surface area Derived from formula 1.67 m2 Tamika Sandhu Work Phone: [facility] Work Phone: 04-21-2022 10:04-0500 Body weight 56.5 kg Tamika Sandhu Work Phone: [facility] Work Phone: 04-21-2022 10:04-0500 Diastolic blood pressure 68 mm[Hg] Tamika Sandhu Work Phone: [facility] Work Phone: 04-21-2022 10:04-0500 Heart rate 92 /min Tamika Sandhu Work Phone: [facility] Work Phone: 04-21-2022 10:04-0500 SaO2% (BldA) [Mass fraction] 98 % Tamika Sandhu Work Phone: [facility] Work Phone: 04-21-2022 10:04-0500 Systolic blood pressure 100 mm[Hg] Tamika Sandhu Work Phone: [facility] Work Phone: 04-07-2022 15:16-0500 Body height 172.09 cm Tamika Sandhu Work Phone: [facility] Work Phone: 04-07-2022 15:16-0500 Body mass index (BMI) [Ratio] 18.76 kg/m2 Tamika Sandhu Work Phone: [facility] Work Phone: 04-07-2022 15:16-0500 Body surface area Derived from formula 1.66 m2 Tamika Sandhu Work Phone: [facility] Work Phone: 04-07-2022 15:16-0500 Body weight 55.57 kg Tamika Sandhu Work Phone: [employer] [facility] Work Phone: 04-07-2022 15:16-0500 Diastolic blood pressure 72 mm[Hg] Tamika Sandhu Work Phone: [employer] [employer] [facility] Work Phone: 04-07-2022 15:16-0500 Heart rate 82 /min Tamika Sandhu Work Phone: [employer] [facility] Work Phone: 04-07-2022 15:16-0500 SaO2% (BldA) [Mass fraction] 97 % Tamika Sandhu Work Phone: [employer] [facility] Work Phone: 04-07-2022 15:16-0500 Systolic blood pressure 100 mm[Hg] Tamika Sandhu Work Phone: [employer] [facility] Work Phone: Encounters Encounter Date Encounter Type Care Provider Facility Start: 11-23-2024 End: 11-23-2024 ambulatory No Primary Care Physician Facility:[facility] Start: 11-23-2024 End: 11-23-[address] Citlalli Cabrera MD -[facility] Work Phone: Start: 11-21-2024 ambulatory No Primary Car e Physician Facility:[facility] Start: 11-21-2024 Non-patient / Non-visit Dr. Khoi Cabrera MD -[facility] Start: 11-21-2024 End: 11-21-2024 ambulatory No Primary Care Physician -[facility] Start: 11-21-2024 End: 11-21-[address] Citlalli Cabrera MD [facility] Work Phone: Start: 11-08-2024 End: 11-08-2024 Patient encounter procedure Kamla CARTAGENA -[facility] Work Phone: Start: 11-08-2024 End: 11-08-2024 ambulatory No Primary Care Physician -[facility] Start: 10-23-2024 End: 10-23-[address] Citlalli Cabrera MD -[facility] Work Phone: Start: 10-23-2024 End: 10-23-2024 ambulatory No Primary Care Physician [facility] Work Phone: Start: 10-17-[address] Samm Colbert MD -[facility] Start: 10-17-2024 ambulatory No Primary Car e Physician Facility:[facility] Start: 10-17-2024 End: 10-17-[address] Samm Colbert MD -[facility] Work Phone: Start: 10-17-2024 End: 10-17-2024 ambulatory No Primary Care Physician [facility] Work Phone: Start: 10-04-2024 End: 10-04-2024 ambulatory No Primary Care Physician [facility] Work Phone: Start: 10-04-2024 End: 10-04-2024 Patient encounter procedure Kamla Zheng ACCOUNTING MANAGER-C -[facility] Work Phone: Start: 10-04-2024 End: 10-04-2024 Patient encounter procedure Kamla Zheng ACCOUNTING MANAGER-C -[facility] Work Phone: Start: 10-04-2024 End: 10-04-2024 ambulatory No Primary Care Physician [facility] Work Phone: Start: 10-04-2024 End: 10-04-2024 ambulatory Kamla Zheng ACCOUNTING MANAGER Facility:[facility] Start: 10-02-2024 End: 10-02-2024 ambulatory No Primary Care Physician [facility] Work Phone: Start: 10-02-2024 End: 10-02-2024 Patient encounter procedure Kecia Faye CNM -[facility] Work Phone: Start: 10-02-2024 End: 10-02-2024 ambulatory No Primary Care Physician Facility:[facility] Start: 09-06-2024 End: 09-06-2024 Patient encounter procedure Kamla CARTAGENA -[facility] Work Phone: Start: 09-06-2024 End: 09-06-2024 ambulatory No Primary Care Physician Facility:[facility] Start: 08-29-2024 End: 08-29-2024 ambulatory MD NO PRIMARY CARE [facility] Start: 08-15-2024 End: 08-15-2024 ambulatory MD NO PRIMARY CARE [facility] Start: 08-09-2024 End: 08-09-[address] Citlalli Cabrera MD -[facility] Work Phone: Start: 08-09-2024 End: 08-09-2024 ambulatory No Primary Care Physician Facility:[facility] Start: 07-14-2024 End: 07-14-[address] Rosalba Yang DO -[facility] Work Phone: Start: 07-14-2024 End: 07-14-2024 ambulatory Rosalba Yang Facility:[facility] Start: 06-13-2024 End: 06-13-[address] Citlalli Cabrera MD -[facility] Start: 06-13-2024 End: 06-13-2024 ambulatory No Primary Care Physician Facility:[facility] Start: 06-09-2024 End: 06-09-[address] Citlalli Cabrera MD -[facility] Work Phone: Start: 06-09-2024 End: 06-09-2024 ambulatory No Primary Care Physician Facility:[facility] Start: 06-09-2024 End: 06-09-2024 ambulatory No Primary Care Physician Facility:[facility] Start: 03-28-2024 End: 03-28-2024 Office outpatient visit 15 minutes Tamika Sandhu MD Work Phone: [facility] Comment on above: Acute sinusitis, rec urrence not specified, unspecified location (Primary Dx) Start: 03-28-2024 End: 03-28-2024 ambulatory TAMIKA Quan [facility] Start: 12-17-2023 End: 12-17-2023 Office outpatient visit 15 minutes Tamika Sandhu MD Work Phone: [facility] Comment on above: Attention deficit di sorder, unspecified hyperactivity presence Start: 12-17-2023 End: 12-17-2023 ambulatory TAMIKA Quan [facility] Start: 06-18-2023 End: 06-18-2023 ambulatory TAMIKA Quan [facility] Start: 06-18-2023 End: 06-18-2023 Office outpatient visit 25 minutes Tamika Sandhu MD Work Phone: [facility] Comment on above: Acute sinusitis, rec urrence not specified, unspecified location (Primary Dx); Attention deficit disorder, unspecified hyperactivity presence Start: 05-07-2023 End: 05-07-2023 [facility] Start: 05-07-2023 End: 05-07-2023 Patient encounter procedure Melissa Lin APRN-[employer] Work Phone: [facility] Comment on above: Influenza (Primary D x) Start: 12-14-2022 End: 12-14-2022 Office outpatient visit 15 minutes Tamika Sandhu MD Work Phone: [facility] Comment on above: Attention deficit di sorder, unspecified hyperactivity presence (Primary Dx) Start: 09-01-2022 End: 09-01-2022 Office outpatient visit 15 minutes Tamika Sandhu MD Work Phone: [facility] Comment on above: Attention deficit di sorder, unspecified hyperactivity presence Start: 06-23-2022 AUDIT Tamika plunkett Work Phone: [facility] Work Phone: Start: 05-19-2022 ambulatory Tamika Sandhu Facility:[id number] Start: 04-21-2022 EPV, Provider: Tamika Sandhu, Status: Pen, Time: 10:00 AM Tamika Sandhu Work Phone: [employer] [facility] Work Phone: Start: 04-21-2022 Office outpatient vi sit 15 minutes Tamika Sandhu Work Phone: [employer] Work Phone: Start: 04-21-2022 ambulatory Tamika Sandhu Facility:[id number] Start: 04-20-2022 Chart Update Tamika plunkett Work Phone: [employer] Work Phone: Start: 04-07-2022 ambulatory Tamika Sandhu Facility:[id number] Start: 12-02-2021 End: 12-02-2021 Emergency department patient visit [facility] Start: 11-02-2017 End: 11-03-2017 Patient encounter WILLIAM Marques Facility:[facility] Start: 01-18-2017 End: 01-19-2017 Patient encounter Nodr No Doctor Assigned Facility:[facility] Procedures Date Procedure Procedure Detail Performing Clinician Start: 11-21-2024 Fibrinogen assay, quantitative No Primary Care Physician Start: 11-21-2024 Urnls dip stick/tabl et reagent auto microscopy No Primary Care Physician Start: 10-17-2024 Total iron binding c apacity measurement No Primary Care Physician Start: 10-04-2024 Urine culture No Primar y Care Physician Start: 10-02-2024 Serologic test for syphilis No Primary Care Physician Start: 06-13-2024 Procedure No Primary Care Physician Start: 06-09-2024 Urine culture No Primar y Care Physician Start: 06-09-2024 Liquid based cervica l cytology screening No Primary Care Physician Start: 06-09-2024 Hepatitis B surface antigen measurement No Primary Care Physician Start: 06-09-2024 Hepatitis C antibody measurement No Primary Care Physician Comment on above: Non Reactive: < 0.8 Equivocal: >/= 0.8 to < 1.0 Reactive: >/= 1.0The CDC requires that a reactive/equivocal HCV antibody result be sent out for confirmation. HCV Quant by PCR testing. Start: 06-09-2024 Rubella IgG measurement No Primary Care Physician Comment on above: Antibody Results Int erpretation of Immune Status Non Reactive Presumed Non-Immune Equivocal Equivocal Reactive Presumed Immune Start: 06-18-2023 FOLLOW UP IN FAMILY MEDICINE TAMIKA SANDHU Start: 04-09-2022 Lipid 1996 panel - S rima or Plasma Tamika Sandhu MD Work Phone: Appendectomy Tamika mccormick Work Phone: Comment on above: 2005; Augmentation mammoplasty Marysol Sandhu Work Phone: Comment on above: 2013; Extraction of wisdom tooth K doug Sandhu Work Phone: Comment on above: x4, 2009; Plan of Treatment Date Care Activity Detail Author Start: 2041 Zoster Vaccines (1 of 2) Zoster Vaccines (1 of 2) [facility] Start: 04-09-2027 Lipid panel Lipid Panel [facility] Start: 11-21-2024 Bacteria identified in Urine by Culture Urine Culture [facility] Start: 11-21-2024 End: 11-21-2024 [facility] Start: 11-21-2024 Nonstress test [facility] Start: 11-21-2024 Obstetric monitoring [facility] Start: 11-21-2024 Vital signs measurements [facility] Start: 11-21-2024 Catheterization of vein [facility] Start: 11-21-2024 Patient discharge [facility] Start: 10-17-2024 CBC W Auto Differential panel - Blood [facility] Start: 10-17-2024 Cobalamin (Vitamin B12) [Mass/volume] in Serum or Plasma [facility] Start: 10-17-2024 Comprehensive metabolic 2000 panel - Serum or Plasma [facility] Start: 10-17-2024 Iron and Iron binding capacity panel - Serum or Plasma [facility] Start: 10-17-2024 [facility] Start: 10-17-2024 Ferritin [Mass/volume] in Serum or Plasma [facility] Start: 10-17-2024 Lactate dehydrogenase measurement [facility] Start: 10-04-2024 Bacteria identified in Urine by Culture Urine Culture [facility] Start: 10-04-2024 [facility] Start: 06-23-2024 End: 06-23-2024 Patient encounter procedure [facility] Start: 01-02-2024 COVID-19 Vaccine ( season) COVID-19 Vaccine () [facility] Start: 01-02-2024 Influenza vaccination Influenza Vaccine (#1) [facility] Start: 12-17-2023 End: 12-17-2023 Patient encounter procedure 12/17/2023 9:00 AM EDT Office Visit [address] [phone] aTmika Sandhu MD [address] [place] [address] Medical Office [place], [place] [id number] [facility] Start: 06-14-2023 End: 06-14-2023 Patient encounter procedure 06/14/2023 9:20 AM EST Office Visit [address] [phone] Tamika Sandhu MD [address] [place] [address] [place] [address] [facility] Start: 01-01-2023 COVID-19 Vaccine () COVID-19 Vaccine () [facility] Start: 01-01-2023 Influenza vaccination [facility] Start: 12-03-2022 End: 12-03-2022 Patient encounter procedure 12/03/2022 9:20 AM EDT Office Visit [address] [phone] Tamika Sandhu MD [address] [facility] [place] [address] [facility] Start: 09-01-2022 EPV, Provider: Tamika Sandhu, Status: Pen, Time: 10:00 AM EPV, Provider: Tamika Sandhu, Status: Pen, Time: 10:00 AM [facility] Work Phone: Start: 05-19-2022 EPV, Provider: Tamika Sandhu, Status: Pen, Time: 10:00 AM EPV, Provider: Tamika Sandhu, Status: Pen, Time: 10:00 AM [facility] Work Phone: Start: 01-11-2012 Screening for malignant neoplasm of cervix [facility] Start: 2009 Hepatitis C screening Hepatitis C Screening [facility] Start: 01-11-2004 Varicella vaccination Varicella Vaccines (1 of 2 - 13+ 2-dose series) [facility] Start: 11-14-2003 Varicella vaccination Varicella Vaccines (1 of 2 - 2-dose childhood series) [facility] Start: 10-18-2003 DTaP/Tdap/Td Vaccines (6 - Tdap) DTaP/Tdap/Td Vaccines (6 - Tdap) [facility] Start: 1991 COVID-19 Vaccine (#1) COVID-19 Vaccine (#1) [facility] Start: 1991 HIV screening HIV Screening [facility] Start: 1991 Yearly Adult Physical Yearly Adult Physical [facility] Alanine aminotransfe rase [Enzymatic activity/volume] in Serum or Plasma [facility] Albumin [Mass/volume ] in Serum or Plasma [facility] Alkaline phosphatase [Enzymatic activity/volume] in Serum or Plasma [facility] Anion gap in Serum or Plasma [facility] Bilirubin, total measurement [facility] BUN/Creatinine ratio [facility] Calcium [Mass/volume ] in Serum or Plasma [facility] Carbon dioxide, tota l [Moles/volume] in Central venous blood [facility] Creatinine [Mass/vol ume] in Serum or Plasma [facility] Erythrocyte mean cor puscular volume determination [facility] Erythrocyte mean cor puscular volume determination [facility] Folate [Moles/volume ] in Serum or Plasma [facility] Glucose [Mass/volume ] in Serum or Plasma [facility] Hematocrit [Volume F raction] of Blood [facility] Hematocrit [Volume F raction] of Blood [facility] Hemoglobin [Mass/vol ume] in Blood [facility] Hemoglobin [Mass/vol ume] in Blood [facility] Iron [Mass/mass] in Unspecified specimen [facility] Iron saturation [Mas s Fraction] in Serum or Plasma [facility] Leukocytes [#/volume ] in Blood [facility] Leukocytes [#/volume ] in Blood [facility] Mean corpuscular hem oglobin concentration determination [facility] Mean corpuscular hem oglobin concentration determination [facility] Mean corpuscular hem oglobin determination [facility] Mean corpuscular hem oglobin determination [facility] Measurement of gluco se 2 hours after glucose challenge for glucose tolerance test [facility] Measurement of renal function [facility] Neutrophil count [facility] Neutrophil count [facility] Neutrophil percent differential count [facility] Neutrophil percent differential count [facility] Patient Education Kick Counts ED False Labor OB Triage: Return to Hospital or Notify Physician if you Experience: [facility] Work Phone: Platelets [#/volume] in Blood [facility] Platelets [#/volume] in Blood [facility] Potassium measurement [facility] Red blood cell count [facility] Red blood cell count [facility] Red cell distributio n width determination [facility] Red cell distributio n width determination [facility] Serologic test for syphilis [facility] Serum chloride measurement [facility] Sodium measurement [facility] Total iron binding c apacity measurement [facility] Total protein measurement [facility] Ultrasound scan for growth [facility] Urea nitrogen [Mass/ volume] in Serum or Plasma [facility] Urine culture [facility] Urine culture [facility] Immunizations Immunization Date Immunization Notes Care Provider Shant mendez 08-17-2019 tetanus toxoid, redu luis diphtheria toxoid, and acellular pertussis vaccine, adsorbed No Primary Care Physician [facility] 10-08-2006 meningococcal polysaccharide (groups A, C, Y and W-135) diphtheria toxoid conjugate vaccine (MCV4P) Tamika Sandhu Work Phone: [facility] Work Phone: 10-17-2003 measles, mumps and rubella virus vaccine Tamika Solorzanojoanna Work Phone: [facility] Work Phone: 10-17-2003 TD(adult) unspecifie d formulation Tamikaphill Larakeily Work Phone: [facility] Work Phone: 08-10-1996 diphtheria, tetanus toxoids and pertussis vaccine Tamika Kadeem Rashadjoanna Work Phone: [facility] Work Phone: 08-10-1996 trivalent poliovirus vaccine, live, oral Tamika Larakeily Work Phone: [facility] Work Phone: 07-27-1995 hepatitis B vaccine, pediatric or pediatric/adolescent dosage Tamika Kadeem Marcokeily Work Phone: [facility] [employer] [facility] Work Phone: 02-23-1995 hepatitis B vaccine, pediatric or pediatric/adolescent dosage Tamikaphill Larakeily Work Phone: [facility] Work Phone: 01-21-1995 hepatitis B vaccine, pediatric or pediatric/adolescent dosage Tamika Sandhu Work Phone: [facility] Work Phone: 12-24-1992 diphtheria, tetanus toxoids and pertussis vaccine [facility] Work Phone: [facility] Work Phone: 11-11-1992 haemophilus influenz ae type b vaccine, PRP-T conjugate Tamika Quan [facility] Work Phone: [facility] Work Phone: 11-11-1992 measles, mumps and rubella virus vaccine Tamika Quan [facility] Work Phone: [facility] Work Phone: 11-11-1992 trivalent poliovirus vaccine, live, oral [facility] Work Phone: [facility] Work Phone: 1991 diphtheria, tetanus toxoids and pertussis vaccine [facility] Work Phone: [facility] Work Phone: 1991 haemophilus influenz ae type b vaccine, PRP-T conjugate [facility] Work Phone: [facility] Work Phone: 1991 diphtheria, tetanus toxoids and pertussis vaccine [facility] Work Phone: [facility] Work Phone: 1991 haemophilus influenz ae type b vaccine, PRP-T conjugate Tamika Quan [facility] Work Phone: [facility] Work Phone: 1991 trivalent poliovirus vaccine, live, oral [facility] Work Phone: [facility] Work Phone: 1991 diphtheria, tetanus toxoids and pertussis vaccine Tamika Sandhu Work Phone: [facility] Work Phone: 1991 haemophilus influenz ae type b vaccine, PRP-T conjugate [facility] Work Phone: [facility] Work Phone: 1991 trivalent poliovirus vaccine, live, oral [facility] Work Phone: [facility] Work Phone: Payers Date Payer Category Payer Self-pay 2022 Managed Care (Private) [employer] [id number] 2022 Private Health Insurance [employer] [facility] [employer] [id number] 2022-Present [id number] [place] [id number] 2022 Private Health Insurance [id number] 2021 Unknown [id number] 2017 Unknown 1991 Unknown [id number] 2.16.840.1.533309.3.579. 2.902 1991 Unknown [id number] 2.16.840.1.219476.3.579. 2.356 1991 Unknown [id number] 2.16.840.1.687289.3.579. 2.356 1991 Unknown [id number] 2.16.840.1.801988.3.579. 2.356 1991 Unknown [id number] 2.16.840.1.208335.3.579. 2.1243 1991 Unknown [id number] 2.16.840.1.690311.3.579. 2.1244 1991 Unknown [id number] 2.840.1.021120.3.579. 2.1244 1991 Unknown [id number] 2.840.1.788925.3.579. 2.1244 1991 Unknown [id number] 2.16840.1.507199.3.579. 2.479 1991 Unknown [id number] 2.16.840.1.925804.3.579. 2.479 Unknown [id number] 2.16840.1.986616.3.579. 2.462 Unknown [id number] 2.16.840.1.200320.3.579. 2.462 Unknown [id number] 2.16.840.1.093932.3.579. 2.462 Unknown [id number] 2.16.840.1.948442.3.579. 2.462 Unknown [id number] 2.16.840.1.049757.3.579. 2.462 Unknown [id number] 2.16.840.1.904435.3.579. 2.462 Unknown [id number] 2.16.840.1.742106.3.579. 2.462 Unknown [id number] 2.16.840.1.381904.3.579. 2.462 Unknown [id number] 2.16.840.1.289507.3.579. 2.462 Unknown [id number] 2.16.840.1.375533.3.579. 2.462 Unknown [id number] 2.16.840.1.752135.3.579. 2.462 Unknown [id number] 2.16.840.1.354843.3.579. 2.462 Unknown [id number] 2.16.840.1.180402.3.579. 2.462 Unknown [id number] 2.16.840.1.037963.3.579. 2.462 Unknown [id number] 2.16.840.1.236727.3.579. 2.462 Unknown [id number] 2.16.840.1.857652.3.579. 2.462 Unknown [id number] 2.16.840.1.195303.3.579. 2.462 Social History Date Type Detail Facility Start: 09-01-2022 End: 06-18-2023 Occasional alcohol use Occasional alcohol use [facility] Work Phone: Start: 09-01-2022 End: 10-04-2024 Tobacco smoking status NHIS Never smoked tobacco [facility] Work Phone: Start: 09-01-2022 Tobacco use and exposure Smokeless tobacco non-user [facility] Work Phone: Start: 09-01-2022 End: 12-17-2023 Alcohol intake Current drinker of alcohol (finding) [facility] Work Phone: Start: 1990 Sex Assigned At Not on file [facility] Work Phone: Start: 09-01-2022 End: 06-18-2023 Gender identity Not on file [facility] Work Phone: Start: 08-22-2022 End: 03-28-2024 Exposure to SARS-CoV-2 (event) Not sure [facility] Start: 08-24-2019 Alcohol Alcohol [facility] Start: 1990 Sex Assigned At Female W [facility] Clinical Notes 01-03-2021 to 11-23-2024 Note Date & Type Note Facility 11-23-2024 Progress note [facility] 11-23-2024 Progress note Note Date/Time November 23, 2024 4:08pm [facility] [address], [address] [place] [address] OFFICE VISIT Date of Service: 11/23/24 MR#: [id number] Acct: [id number] Name: MARIBEL CROCKETT Rep #: [id number] : 1990 Provider: Dr. Jesus Cabrera MD Age/Sex: 34/F Location: [facility] Status: Signed Intake Vital Signs 10/02/24 14:24 11/21/24 08:32 11/23/24 15:32 11/23/24 15:34 Height 5 ft 7.5 in 5 ft 8 in 5 ft 8 in 5 ft 8 in Weight: 145 lb 8 oz BMI 22.1 BP 99/64 Intake Visit Reasons: 34 wk ob Inspector Cold Working Required: No Is patient in pain?: No Allergies No Known Allergies Allergy (Verified 11/23/24 15:32) Medications ?Medication ?Instructions ?Recorded ?Confirmed ?Type PNV 153-FA 400 mcg-om3 35 mg-dha 1 tab PO DAILY pregna ncy 06/02/24 11/23/24 History 25 mg-epa 5 mg-fish oil chew tablet cephalexin 500 mg capsule 500 mg PO Q6 7 days #28 caps 11/21/24 11/23/24 Rx Last Menstrual Period: 03/30/24 Zika: Zika virus screening: Negative : No PFSH PFSH Medical History Varicose vein vulva-delivered FH: breast cancer Cystitis during , antepartum False labor Gestational thrombocytopenia 30 weeks gestation of Surgical History H/O basal cell carcinoma excision History of surgery History of surgery History of surgery Family History Grandmother Breast cancer, Onset Age: 65 Maternal- mets to liver Grandfather Myocardial infarction, Onset Age: 78 Paternal Social History adopted: No household members: spouse and children number of children: 2 current occupational status: unemployed current occupation: [employer] pets and animals: Yes pets and animals: dog(s) history of recent travel: No sexually active: Yes Smoking Status: Never smoker alcohol intake: current alcohol intake frequency: a few times a month details: Not while substance use type: does not use well-balanced diet: daily or most days caffeine: Yes Type: coffee Number of servings: 2 eating out: rarely or never during the past year weight has: remained stable what type of physical activity do you participate in: none ramesh/congregation: [employer] seatbelt use: always do you feel safe at home: Yes 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 Date Name GA/Weeks Outcome Route Bth Weight Infant Gen Labor Lgth Anesthesia Del Locat[facility] 8 [facility] Female 12 e pidural [facility] Ibis Rush 02/22/21 Ivette 38 live - full term 6# 8oz Female epi dural [facility] Nehemias Rush Delivery Date: 08/24/19 Last Updated by: Carlee He MD pprom, labor, chorioamnionitis Delivery Date: 02/22/21 Last Updated by: Patricia Nichols iol, , prolapse(vulvo-vaginal varicosity) at 26 wks and two more times after- no problems since HPI 34 wk ob Details: MARIBEL CROCKETT is a 34 year old who presents for routine OB visit. OB Visit [facility] Calculator Estimated Delivery Date Method Current WG Current Estimate 01/04/25 LMP (Uncertain) 34w 0d Other Estimates 01/02/25 Ultrasound #1 34w 2d Expected Delivery Route/Plan Labor Preferences- CB/BF classes: no labor support person: Victor Manuel labor intervention preferences: [] pain management options preferred: discussed cut cord/dad catch: cord : yes PP control planned: discussed discussed possible routes of delivery and associated risks: [] special requests: [] Specific Issue/Plans Covid status: [] Flu vaccine: [] Tdap vaccine: [] Rhogam: [] LARC form signed: [] Problem list reviewed and updated with the most current plan of care details and appropriate orders placed. Relevant counseling for the gestational age provided. Continue routine care and follow up unless otherwise noted in visit notes/problem list details Initial Weight: Not Recorded Date -?-?-?-?-?-?-?-?-?-?-?-?- EGA Weight BP Urine Prot -?-?-?-?-?-?-?-?-?-?-?-?- Glucose FHR FuHt Pres Dilation -?-?-?-?-?-?-?-?-?-?-?-?- Effaced St Visit Note 06/09/24 -?-?-?-?-?-?-?-?-?-?-?-?- 10w 1d 121 lb 6 oz 116/80 -?-?-?-?-?-?-?-?-?-?-?-?- 175 -?-?-?-?-?-?-?-?-?-?-?-?- SM- CRL 3.5 cm c ons with LMP 07/14/24 -?-?-?-?-?-?-?-?-?-?-?-?- 15w 1d 126 lb 2 oz 115/75 Nega tive -?-?-?-?-?-?-?-?-?-?-?-?- Negative 164 -?--?-?-?-?-?-?-?-?-?-?-?- JV- has complain t about headaches from sinus congestion which is also secondary to allergies. anatomy ultrasound ordered. 08/09/24 -?-?-?-?-?-?-?-?-?-?-?-?- 18w 6d 130 lb 103/65 Negative -?-?-?-?-?-?-?-?-?-?-?-?- Negative 150 -?-?-?-?-?-?-?-?-?-?-?-?- SM- no vb lof co vulvar discomfort, has had even before 09/06/24 -?-?-?-?-?-?-?-?-?-?-?-?- 22w 6d 134 lb 8 oz 106/70 Nega tive -?-?-?-?-?-?-?-?-?-?-?-?- Negative 153 -?-?-?-?-?-?-?-?-?-?-?-?- -No VB, LOF. G oodFM. No concerns 10/02/24 -?-?-?-?-?-?-?-?-?-?-?-?- 26w 4d 139 lb 4 oz 96/65 Nega tive -?-?-?-?-?-?-?-?-?-?-?-?- Negative 155 25 -?-?-?-?-?-?-?-?-?-?-?-?- KW- no vb/crampi ng. good fm. glucose today. support belt for pelvic pain. 10/04/24 -?-?-?-?-?-?-?-?-?-?-?-?- 26w 6d 139 lb 109/70 Negative -?-?-?-?-?-?-?-?-?-?-?-?- Negative 148 0 -?-?-?-?-?-?-?-?-?-?-?-?- -No VB, LOF. H as vaginal prolapse/see exam note. 10/23/24 -?-?-?-?-?-?-?-?-?-?-?-?- 29w 4d 144 lb 4 oz 95/60 Nega tive -?-?-?-?-?-?-?-?-?-?-?-?- Negative 140 28 -?-?-?-?--?-?-?-?-?-?-?-?- Sm- no vb lof go od fm no reuglar ctx reviewed platelet counts. reviewed pelvic pressure and reviewed pessary indications 11/08/24 -?-?-?-?-?-?-?-?-?-?-?-?- 31w 6d 143 lb 2 oz 118/64 Nega tive -?-?-?-?-?-?-?-?-?-?-?-?- Negative 146 30 -?-?-?-?-?-?-?-?-?-?-?-?- MH-No VB, LOF. S ome pubic bone discomfort. Good Fm. 11/23/24 -?-?-?-?-?-?-?-?-?-?-?-?- 34w 0d 145 lb 8 oz 99/64 Nega tive -?-?-?-?-?-?-?-?-?-?-?-?- Negative 150 32 1.5 -?-?-?-?-?-?-?-?-?-?-?-?- SM- seen in [facility] wednesday for contracitons and bleeding, had more brown discharge yesterday morning. ACOG First Trimester First Trimester: Discussed Results POC Urinalysis 2 Dip (Clinic) Office Urine Glucose Negative Last Edit by Kamla Sheehan on 11/23/24 15:37 Office Urine Protein Negative Last Edit by Kamla Sheehan on 11/23/24 15:37 Coding Level of Care Code OB Routine Diagnoses Thrombocytopenia affecting O99.119; D69.6 Nasal septum ulceration J34.0 Urinary tract infection in mother during second trimester of O23.42 Trimester: second trimester Cystocele with incomplete uterovaginal prolapse N81.2 Hx of delivery, currently O09.899 Supervision of high risk in third trimester O09.93 Trimester: third trimester Hx of delivery by vacuum extraction, currently O09.299 34 weeks gestation of Z3A.34 Weeks of gestation: 34 weeks History of chorioamnionitis Z87.59 Assessment and Plan Assessment and Plan (1) Thrombocytopenia affecting : Status: Chronic Comment: Platelet count has been greater than 100K so no intervention needed at this time. She does not meet the criteria for ITP. If Platelets are greater than 80,000, she can get Epidural anesthesia since that is what she wants.. (2) Nasal septum ulceration: Status: Acute (3) UTI in : Status: Acute Qualifiers: Trimester: second trimester Qualified Code(s): O23.42 - Unspecified infection of urinary tract in , second trimester Comment: macrobid initially. Culture actinomyces, at 50,000 but will treat with Amoxil X 4 wk and will then need repeat culture. LM for ID to discuss, patient declining ATB tx. (4) Cystocele with incomplete uterovaginal prolapse: Status: Acute Comment: declines pessary (5) Hx of delivery, currently : Status: Acute Comment: first 36 wks (6) Supervision of high-risk : Status: Acute Qualifiers: Trimester: third trimester Qualified Code(s): O09.93 - Supervision of high risk , unspecified, third trimester Comment: PRR , [facility] 01/04/25,girl PC Eileen, [place] Victor Manuel (7) Hx of delivery by vacuum extraction, currently : Status: Acute Comment: first (8) : Status: Acute Qualifiers: Weeks of gestation: 34 weeks Qualified Code(s): Z3A.34 - 34 weeks gestation of Comment: NIPT low risk, f/u anatomy complete & nl. (9) History of chorioamnionitis: Status: Acute Comment: first Orders: Orders POC Urinalysis 2 Dip (Clinic) Today 11/23/24 3048 <Electronically signed by Citlalli mi MD> Date _ [facility]alli [facility]rera [facility] Signature: Date (if applicable) CC: ~ [facility] Work Phone: 1(867) 364-624906-23-2025 [facility] [address] [place] [address], [address] [place] [address] OFFICE VISIT Date of Service: 10/23/24 MR#: [id number] Acct: [id number] Name: MARIBEL CROCKETT Rep #: [id number] : 1990 Provider: Dr. Jesus Cabrera MD Age/Sex: 34/F Location: [facility] Status: Signed Intake Vital Signs 08/09/24 15:05 10/17/24 09:36 10/23/24 15:11 Height 5 ft 7.5 in 5 ft 7.5 in Weight: 144 lb 4 oz BMI 22.2 BP 95/60 Intake Visit Reasons: 30wk ob, pessary fitting. Inspector Cold Working Required: No Is patient in pain?: Yes (vaginal prolapse causing discomfort) Allergies No Known Allergies Allergy (Verified 10/23/24 15:09) Medications ?Medication ?Instructions ?Recorded ?Confirmed ?Type PNV 153-FA 400 mcg-om3 35 mg-dha tab PO 06/02/2410/23 History 25 mg-epa 5 mg-fish oil chew tablet amoxicillin 500 mg tablet 500 mg PO TID 28 days #84 ta bs 10/11/24 10/23/24 Rx Last Menstrual Period: 03/30/24 Zika: Zika virus screening: Negative : No PFSH PFSH Medical History Varicose vein vulva-delivered FH: breast cancer Cystitis during , antepartum False labor Gestational thrombocytopenia 30 weeks gestation of Surgical History H/O basal cell carcinoma excision History of surgery History of surgery History of surgery Family History Grandmother Breast cancer, Onset Age: 65 Maternal- mets to liver Grandfather Myocardial infarction, Onset Age: 78 Paternal Social History adopted: No household members: spouse and children number of children: 2 current occupational status: unemployed current occupation: [employer] pets and animals: Yes pets and animals: dog(s) history of recent travel: No sexually active: Yes Smoking Status: Never smoker alcohol intake: current alcohol intake frequency: a few times a month details: Not while substance use type: does not use well-balanced diet: daily or most days caffeine: Yes Type: coffee Number of servings: 2 eating out: rarely or never during the past year weight has: remained stable what type of physical activity do you participate in: none ramesh/congregation: Gnostic[employer] seatbelt use: always do you feel safe at home: Yes 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 Date Name GA/Weeks Outcome Route Bth Weight Infant Gen Labor Lgth A nesthesia Del Locatn Provider FOB 08/24/19 [place] 36 live - vacuum 6lb 8 oz Female 12 e pidural [facility] Ibis Rush 02/22/21 [place] 38 live - full term 6# 8oz Female epi dural [facility] Nehemias Rush Delivery Date: 08/24/19 Last Updated by: Carlee He MD pprom, labor, chorioamnionitis Delivery Date: 02/22/21 Last Updated by: Patricia Nichols iol, , prolapse(vulvo-vaginal varicosity) at 26 wks and two more times after- no problems since HPI 30wk ob, pessary fitting. Details: MARIBEL CROCKETT is a 34 year old who presents for routine OB visit. OB Visit MARGO Calculator Estimated Delivery Date Method Current WG Current Estimate 01/04/25 LMP (Uncertain) 29w 4d Other Estimates 01/02/25 Ultrasound #1 29w 6d Expected Delivery Route/Plan Labor Preferences- CB/BF classes: no labor support person: Victor Manuel labor intervention preferences: [] pain management options preferred: discussed cut cord/dad catch: cord : yes PP control planned: discussed discussed possible routes of delivery and associated risks: [] special requests: [] Specific Issue/Plans Covid status: [] Flu vaccine: [] Tdap vaccine: [] Rhogam: [] LARC form signed: [] Problem list reviewed and updated with the most current plan of care details and appropriate ordersplaced. Relevant counseling for the gestational age provided. Continue routine care and follow up unless otherwise noted in visit notes/problem list details Initial Weight: Not Recorded Date -?-?-?-?-?-?-?-?-?-?-?-?- EGA Weight BP Urine Prot -?-?-?-?-?-?-?-?-?-?-?-?- Glucose FHR FuHt Pres Dilation -?-?-?-?-?-?-?-?-?-?-?-?- Effaced St Visit Note 06/09/24 -?-?-?-?-?-?-?-?-?-?-?-?- 10w 1d 121 lb 6 oz 116/80 -?-?-?-?-?-?-?-?-?-?-?-?- 175 -?-?-?-?-?-?-?-?-?-?-?-?- SM- CRL 3.5 cm c ons with LMP 07/14/24 -?-?-?-?-?-?-?-?-?-?-?-?- 15w 1d 126 lb 2 oz 115/75 Nega tive -?-?-?-?-?-?-?-?-?-?-?-?- Negative 164 -?-?-?-?-?-?-?-?-?-?-?-?- JV- has complain t about headaches from sinus congestion which is also secondary to allergies. anatomy ultrasound ordered. 08/09/24 -?-?-?-?-?-?-?-?-?-?-?-?- 18w 6d 130 lb 103/65 Negative -?-?-?-?-?-?-?-?-?-?-?-?- Negative 150 -?-?-?-?-?-?-?-?-?-?-?-?- SM- no vb lof co vulvar discomfort, has had even before 09/06/24 -?-?-?-?-?-?-?-?-?-?-?-?- 22w 6d 134 lb 8 oz 106/70 Nega tive -?-?-?-?-?-?-?-?-?-?-?-?- Negative 153 -?-?-?-?-?-?-?-?-?-?-?-?- -No VB, LOF. G oodFM. No concerns 10/02/24 -?-?-?-?-?-?-?-?-?-?-?-?- 26w 4d 139 lb 4 oz 96/65 Nega tive -?-?-?-?-?-?-?-?-?-?-?-?- Negative 155 25 -?-?-?-?-?-?-?-?-?-?-?-?- KW- no vb/crampi ng. amy fm. glucose today. support belt for pelvic pain. 10/04/24 -?-?-?-?-?-?-?-?-?--?-?-?- 26w 6d 139 lb 109/70 Negative -?-?-?-?-?-?-?-?-?-?-?-?- Negative 148 0 -?-?-?-?-?-?-?-?-?-?-?-?- -No VB, LOF. H as vaginal prolapse/see exam note. 10/23/24 -?-?-?-?-?-?-?-?-?-?-?-?- 29w 4d 144 lb 4 oz 95/60 Nega tive -?-?-?-?-?-?-?-?-?-?-?-?- Negative 140 28 -?-?-?-?-?-?-?-?-?-?-?-?- Sm- no vb lof go od fm no reuglar ctx reviewed platelet counts. reviewed pelvic pressure and reviewed pessary indications ACOG First Trimester First Trimester: Discussed Results POC Urinalysis 2 Dip (Clinic) Office Urine Glucose Negative Last Edit by Kamla Sheehan on 10/23/24 15:17 Office Urine Protein Negative Last Edit by Kamla Sheehan on 10/23/24 15:17 Coding Level of Care Code OB Routine Diagnoses Thrombocytopenia affecting O99.119; D69.6 Nasal septum ulceration J34.0 Urinary tract infection in mother during second trimester of O23.42 Trimester: second trimester Cystocele with incomplete uterovaginal prolapse N81.2 Hx of delivery, currently O09.899 Supervision of high risk in second trimester O09.92 Trimester: second trimester Hx of delivery by vacuum extraction, currently O09.299 29 weeks gestation of Z3A.29 Weeks of gestation: 29 weeks History of chorioamnionitis Z87.59 Assessment and Plan Assessment and Plan (1) Thrombocytopenia affecting : Status: Chronic Comment: Platelet count has been greater than 100K so no intervention needed at this time. She does not meetthe criteria for ITP. If Platelets are greater than 80,000, she can get Epidural anesthesia since that is what she wants.. (2) Nasal septum ulceration: Status: Acute (3) UTI in : Status: Acute Qualifiers: Trimester: second trimester Qualified Code(s): O23.42 - Unspecified infection of urinary tract in , second trimester Comment: macrobid initially. Culture actinomyces, at 50,000 but will treat with Amoxil X 4 wk and will then need repeat culture. LM for ID to discuss, patient declining ATB tx. (4) Cystocele with incomplete uterovaginal prolapse: Status: Acute Comment: declines pessary (5) Hx of delivery, currently : Status: Acute Comment: first 36 wks (6) Supervision of high-risk : Status: Acute Qualifiers: Trimester: second trimester Qualified Code(s): O09.92 - Supervision of high risk , unspecified, second trimester Comment: PRR , MARGO 01/04/25,girl PC Eileen, [place] Victor Manuel (7) Hx of delivery by vacuum extraction, currently : Status: Acute Comment: first (8) : Status: Acute Qualifiers: Weeks of gestation: 29 weeks Qualified Code(s): Z3A.29 - 29 weeks gestation of Comment: NIPT low risk, f/u anatomy complete & nl. (9) History of chorioamnionitis: Status: Acute Comment: first Orders: Orders POC Urinalysis 2 Dip (Clinic) Today 10/23/24 1533 hiwot ALCARAZ> Date _ Citlalli Cabrera MD Cosigner Signature: Date (if applicable) CC: ~ [facility]06-23-2025 Progress note Author Citlalli Cabrera [facility] Note Date/Time October 23, 2024 3:33 pm [facility] [address] [place] [address], [address] [place] [address] OFFICE VISIT Date of Service: 10/23/24 MR#: [id number] Acct: [id number] Name: MARIBEL CROCKETT Rep #: [id number] : 1990 Provider: Dr. Jesus Cabrera MD Age/Sex: 34/F Location: [facility] Status: Signed Intake Vital Signs 08/09/24 15:05 10/17/24 09:36 10/23/24 15:11 Height 5 ft 7.5 in 5 ft 7.5 in Weight: 144 lb 4 oz BMI 22.2 BP 95/60 Intake Visit Reasons: 30wk ob, pessary fitting. Inspector Cold Working Required: No Is patient in pain?: Yes (vaginal prolapse causing discomfort) Allergies No Known Allergies Allergy (Verified 10/23/24 15:09) Medications ?Medication ?Instructions ?Recorded ?Confirmed ?Type PNV 153-FA 400 mcg-om3 35 mg-dha tab PO 06/02/2410/23 History 25 mg-epa 5 mg-fish oil chew tablet amoxicillin 500 mg tablet 500 mg PO TID 28 days #84 ta bs 10/11/24 10/23/24 Rx Last Menstrual Period: 03/30/24 Zika: Zika virus screening: Negative : No PFSH PFSH Medical History Varicose vein vulva-delivered FH: breast cancer Cystitis during , antepartum False labor Gestational thrombocytopenia 30 weeks gestation of Surgical History H/O basal cell carcinoma excision History of surgery History of surgery History of surgery Family History Grandmother Breast cancer, Onset Age: 65 Maternal- mets to liver Grandfather Myocardial infarction, Onset Age: 78 Paternal Social History adopted: No household members: spouse and children number of children: 2 current occupational status: unemployed current occupation: [employer] pets and animals: Yes pets and animals: dog(s) history of recent travel: No sexually active: Yes Smoking Status: Never smoker alcohol intake: current alcohol intake frequency: a few times a month details: Not while substance use type: does not use well-balanced diet: daily or most days caffeine: Yes Type: coffee Number of servings: 2 eating out: rarely or never during the past year weight has: remained stable what type of physical activity do you participate in: none ramesh/congregation: Gnostic[employer] seatbelt use: always do you feel safe at home: Yes 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 Date Name GA/Weeks Outcome Route Bth Weight Infant Gen Labor Lgth A nesthesia Del Locatn Provider FOB 08/24/19 [facility] 36 live - vacuum 6lb 8 oz Female 12 e pidural [facility] Ibis Rush 02/22/21 [place] 38 live - full term 6# 8oz Female epi dural [facility] Nehemias Rush Delivery Date: 08/24/19 Last Updated by: Carlee He MD pprom, labor, chorioamnionitis Delivery Date: 02/22/21 Last Updated by: Patricia Nichols iol, , prolapse(vulvo-vaginal varicosity) at 26 wks and two more times after- no problems since HPI 30wk ob, pessary fitting. Details: MARIBEL CROCKETT is a 34 year old who presents for routine OB visit. OB Visit MARGO Calculator Estimated Delivery Date Method Current WG Current Estimate 01/04/25 LMP (Uncertain) 29w 4d Other Estimates 01/02/25 Ultrasound #1 29w 6d Expected Delivery Route/Plan Labor Preferences- CB/BF classes: no labor support person: Victor Manuel labor intervention preferences: [] pain management options preferred: discussed cut cord/dad catch: cord : yes PP control planned: discussed discussed possible routes of delivery and associated risks: [] special requests: [] Specific Issue/Plans Covid status: [] Flu vaccine: [] Tdap vaccine: [] Rhogam: [] LARC form signed: [] Problem list reviewed and updated with the most current plan of care details and appropriate orders placed. Relevant counseling for the gestational age provided. Continue routine care and follow up unless otherwise noted in visit notes/problem list details Initial Weight: Not Recorded Date -?-?-?-?-?-?-?-?-?-?-?-?- EGA Weight BP Urine Prot -?-?-?-?-?-?-?-?-?-?-?-?- Glucose FHR FuHt Pres Dilation -?-?-?-?-?-?-?-?-?-?-?-?- Effaced St Visit Note 06/09/24 -?-?-?-?-?-?-?-?-?-?-?-?- 10w 1d 121 lb 6 oz 116/80 -?-?-?-?-?-?-?-?-?-?-?-?- 175 -?-?-?-?-?-?-?-?-?-?-?-?- SM- CRL 3.5 cm c ons with LMP 07/14/24 -?-?-?-?-?-?-?-?-?-?-?-?- 15w 1d 126 lb 2 oz 115/75 Nega tive -?-?-?-?-?-?-?-?-?-?-?-?- Negative 164 -?-?-?-?-?-?-?-?-?-?-?-?- JV- has complain t about headaches from sinus congestion which is also secondary to allergies. anatomy ultrasound ordered. 08/09/24 -?-?-?-?-?-?-?-?-?-?-?-?- 18w 6d 130 lb 103/65 Negative -?-?-?-?-?-?-?-?-?-?-?-?- Negative 150 -?-?-?-?-?-?-?-?-?-?-?-?- SM- no vb lof co vulvar discomfort, has had even before 09/06/24 -?-?-?-?-?-?-?-?-?-?-?-?- 22w 6d 134 lb 8 oz 106/70 Nega tive -?-?-?-?-?-?-?-?-?-?-?-?- Negative 153 -?-?-?-?-?-?-?-?-?-?-?-?- -No VB, LOF. G oodFM. No concerns 10/02/24 -?-?-?-?-?-?-?-?-?-?-?-?- 26w 4d 139 lb 4 oz 96/65 Nega tive -?-?-?-?-?-?-?-?-?-?-?-?- Negative 155 25 -?-?-?-?-?-?-?-?-?-?-?-?- KW- no vb/crampi ng. good fm. glucose today. support belt for pelvic pain. 10/04/24 -?-?-?-?-?-?-?-?-?--?-?-?- 26w 6d 139 lb 109/70 Negative -?-?-?-?-?-?-?-?-?-?-?-?- Negative 148 0 -?-?-?-?-?-?-?-?-?-?-?-?- -No VB, LOF. H as vaginal prolapse/see exam note. 10/23/24 -?-?-?-?-?-?-?-?-?-?-?-?- 29w 4d 144 lb 4 oz 95/60 Nega tive -?-?-?-?-?-?-?-?-?-?-?-?- Negative 140 28 -?-?-?-?-?-?-?-?-?-?-?-?- Sm- no vb lof go od fm no reuglar ctx reviewed platelet counts. reviewed pelvic pressure and reviewed pessary indications ACOG First Trimester First Trimester: Discussed Results POC Urinalysis 2 Dip (Clinic) Office Urine Glucose Negative Last Edit by Kamla Sheehan on 10/23/24 15:17 Office Urine Protein Negative Last Edit by Kamla Sheehan on 10/23/24 15:17 Coding Level of Care Code OB Routine Diagnoses Thrombocytopenia affecting O99.119; D69.6 Nasal septum ulceration J34.0 Urinary tract infection in mother during second trimester of O23.42 Trimester: second trimester Cystocele with incomplete uterovaginal prolapse N81.2 Hx of delivery, currently O09.899 Supervision of high risk in second trimester O09.92 Trimester: second trimester Hx of delivery by vacuum extraction, currently O09.299 29 weeks gestation of Z3A.29 Weeks of gestation: 29 weeks History of chorioamnionitis Z87.59 Assessment and Plan Assessment and Plan (1) Thrombocytopenia affecting : Status: Chronic Comment: Platelet count has been greater than 100K so no intervention needed at this time. She does not meet the criteria for ITP. If Platelets are greater than 80,000, she can get Epidural anesthesia since that is what she wants.. (2) Nasal septum ulceration: Status: Acute (3) UTI in : Status: Acute Qualifiers: Trimester: second trimester Qualified Code(s): O23.42 - Unspecified infection of urinary tract in , second trimester Comment: macrobid initially. Culture actinomyces, at 50,000 but will treat with Amoxil X 4 wk and will then need repeat culture. LM for ID to discuss, patient declining ATB tx. (4) Cystocele with incomplete uterovaginal prolapse: Status: Acute Comment: declines pessary (5) Hx of delivery, currently : Status: Acute Comment: first 36 wks (6) Supervision of high-risk : Status: Acute Qualifiers: Trimester: second trimester Qualified Code(s): O09.92 - Supervision of high risk , unspecified, second trimester Comment: PRR , MARGO 01/04/25,girl PC Eileen[place]h Victor Manuel (7) Hx of delivery by vacuum extraction, currently : Status: Acute Comment: first (8) : Status: Acute Qualifiers: Weeks of gestation: 29 weeks Qualified Code(s): Z3A.29 - 29 weeks gestation of Comment: NIPT low risk, f/u anatomy complete & nl. (9) History of chorioamnionitis: Status: Acute Comment: first Orders: Orders POC Urinalysis 2 Dip (Clinic) Today 10/23/24 1533 <Electronically signed by Citlalli mi MD> Date _ Citlalli Cabrera MD Cosign Signature: Date (if applicable) CC: ~ [facility] Work Phone: 1(402) 380-218006-02-2025 Progress [facility] [address] [place] [address], [address] [place] [address] OFFICE VISIT Date of Service: 10/02/24 MR#: [id number] Acct: [id number] Name: MARIBEL CROCKETT Rep #: [id number] : 1990 Provider: LEYLA Faye Age/Sex: 34/F Location: [facility] Status: Signed Intake Vital Signs 08/09/24 15:05 09/06/24 14:13 10/02/24 14:24 Height 5 ft 7.5 in 5 ft 7.5 in 5 ft 7.5 in Weight: 139 lb 4 oz BMI 21.4 BP 96/65 Intake Visit Reasons: 27 WK OB/GLUCOSE Chief Complaint: 27wk OB Inspector Cold Working Required: No Is patient in pain?: No Allergies No Known Allergies Allergy (Verified 10/02/24 14:26) Medications ?Medication ?Instructions ?Recorded ?Confirmed ?Type PNV 153-FA 400 mcg-om3 35 mg-dha tab PO 06/02/2410/02 History 25 mg-epa 5 mg-fish oil chew tablet ondansetron HCl 4 mg tablet 4 mg PO Q8H PRN 06/02/24 0 10/02/24 History Last Menstrual Period: 03/30/24 : No Have you fallen in the past year?: No PFSH PFSH Medical History Varicose vein vulva-delivered FH: breast cancer Cystitis during , antepartum False labor Gestational thrombocytopenia 30 weeks gestation of Surgical History H/O basal cell carcinoma excision History of surgery History of surgery History of surgery Family History Grandmother Breast cancer, Onset Age: 65 Maternal- mets to liver Grandfather Myocardial infarction, Onset Age: 78 Paternal Social History adopted: No household members: spouse and children number of children: 2 current occupational status: unemployed current occupation: [employer] pets and animals: Yes pets and animals: dog(s) history of recent travel: No sexually active: Yes Smoking Status: Never smoker alcohol intake: current alcohol intake frequency: a few times a month details: Not while substance use type: does not use well-balanced diet: daily or most days caffeine: Yes Type: coffee Number of servings: 2 eating out: rarely or never during the past year weight has: remained stable what type of physical activity do you participate in: none ramesh/congregation: [employer] seatbelt use: always do you feel safe at home: Yes 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 Date Name GA/Weeks Outcome Route Bth Weight Gen Labor Lgth Anesthesia Del Locatn Provider FOB 08/24/19 [place] 36 live - vacuum 6lb 8 oz Female 12 e pidural [facility] Ibis Rush 02/22/21 [place] 38 live - full term 6# 8oz Female epi dural [facility] Nehemias Rush Delivery Date: 08/24/19 Last Updated by: Carlee He MD pprom, labor, chorioamnionitis Delivery Date: 02/22/21 Last Updated by: Patricia Nichols iol, , prolapse(vulvo-vaginal varicosity) at 26 wks and two more times after- no problems since HPI 27 WK OB/GLUCOSE Details: MARIBEL CROCKETT is a 34 year old who presents for routine OB visit. OB Visit MARGO Calculator Estimated Delivery Date Method Current WG Current Estimate 01/04/25 LMP (Uncertain) 26w 4d Other Estimates 01/02/25 Ultrasound #1 26w 6d Expected Delivery Route/Plan Labor Preferences- CB/BF classes: no labor support person: Victor Manuel labor intervention preferences: [] pain management options preferred: discussed cut cord/dad catch: cord : yes PP control planned: discussed discussed possible routes of delivery and associated risks: [] special requests: [] Specific Issue/Plans Covid status: [] Flu vaccine: [] Tdap vaccine: [] Rhogam: [] LARC form signed: [] Problem list reviewed and updated with the most current plan of care details and appropriate ordersplaced. Relevant counseling for the gestational age provided. Continue routine care and follow up unless otherwise noted in visit notes/problem list details Initial Weight: Not Recorded Date -?-?-?-?-?-?-?-?-?-?-?-?- EGA Weight BP Urine Prot -?-?-?-?-?-?-?-?-?-?-?-?- Glucose FHR FuHt Pres Dilation -?-?-?-?-?-?-?-?-?-?-?-?- Effaced St Visit Note 06/09/24 -?-?-?-?-?-?-?-?-?-?-?-?- 10w 1d 121 lb 6 oz 116/80 -?-?-?-?-?-?-?-?-?-?-?-?- 175 -?-?-?-?-?-?-?-?-?-?-?-?- SM- CRL 3.5 cm c ons with LMP 07/14/24 -?-?-?-?-?-?-?-?-?-?-?-?- 15w 1d 126 lb 2 oz 115/75 Nega tive -?-?-?-?-?-?-?-?-?-?-?-?- Negative 164 -?-?-?-?-?-?-?-?-?-?-?-?- JV- has complain t about headaches from sinus congestion which is also secondary to allergies. anatomy ultrasound ordered. 08/09/24 -?-?-?-?-?-?-?-?-?-?-?-?- 18w 6d 130 lb 103/65 Negative -?-?-?-?-?-?-?-?-?-?-?-?- Negative 150 -?-?-?-?-?-?-?-?-?-?-?-?- SM- no vb lof co vulvar discomfort, has had even before 09/06/24 -?-?-?-?-?-?-?-?-?-?-?-?- 22w 6d 134 lb 8 oz 106/70 Nega tive -?-?-?-?-?-?-?-?-?-?-?-?- Negative 153 -?-?-?-?-?-?-?-?-?-?-?-?- MH-No VB, LOF. G oodFM. No concerns 10/02/24 -?-?-?-?-?-?-?-?-?-?-?-?- 26w 4d 139 lb 4 oz 96/65 Nega tive -?-?-?-?-?-?-?-?-?-?-?-?- Negative 155 25 -?-?-?-?-?-?-?-?-?-?-?-?- KW- no vb/crampi ng. good fm. glucose today. support belt for pelvic pain. ACOG First Trimester First Trimester: Discussed ROS Const Reports system reviewed and no additional complaints, except as documented Eyes Reports system reviewed and no additional complaints, except as documented ENT Reports system reviewed and no additional complaints, except as documented Card Reports system reviewed and no additional complaints, except as documented Resp Reports system reviewed and no additional complaints, except as documented GI Reports system reviewed and no additional complaints, except as documented, Denies nausea and Denies vomiting Reports system reviewed and no additional complaints, except as documented Musc Reports system reviewed and no additional complaints, except as documented Skin/Breast Reports system reviewed and no additional complaints, except as documented Neuro Yes system reviewed and no additional complaints, except as documented Psych Reports system reviewed and no additional complaints, except as documented Endo Reports system reviewed and no additional complaints, except as documented Otni/Lymph Reports system reviewed and no additional complaints, except as documented Aller/Immun Reports system reviewed and no additional complaints, except as documented Exam Const General: cooperative, healthy appearing and no acute distress Orientation: alert, awake and oriented x3 Neck Neck: normal visual inspection and full ROM Resp Effort & Inspection: normal respiratory effort, able to speak in complete sentences and symmetric chest movement GI Inspection: normal to inspection Palpation: soft and other Other: gravid Skin General: no rashes or lesions noted Neuro General: patient alert, patient awake and patient oriented x3 Cognition: normal cognition Speech: speech normal Gait: normal gait Motor: muscle tone normal throughout Extrem General: normal to inspection and full ROM Psych Appearance: grossly normal Mental Status: mental status grossly normal Mood: congruent mood Affect: normal affect Speech and Movement: speech and movement normal Attitude: cooperative Thought Process: normal Thought Content: normal Judgment: judgment good Results POC Urinalysis 2 Dip (Clinic) Office Urine Glucose Negative Last Edit by Odalys Post on 10/02/24 14:30 Office Urine Protein Negative Last Edit by Odalys Post on 10/02/24 14:30 Coding Level of Care Code OB Routine Diagnoses Hx of delivery, currently O09.899 Supervision of high risk in second trimester O09.92 Trimester: second trimester Hx of delivery by vacuum extraction, currently O09.299 26 weeks gestation of Z3A.26 Weeks of gestation: 26 weeks History of chorioamnionitis Z87.59 Assessment and Plan Assessment and Plan (1) Hx of delivery, currently : Status: Acute Comment: first 36 wks (2) Supervision of high-risk : Status: Acute Qualifiers: Trimester: second trimester Qualified Code(s): O09.92 - Supervision of high risk , unspecified, second trimester Comment: PRR , MARGO 01/04/25,girl PC Eileen, [place] Victor Manuel (3) Hx of delivery by vacuum extraction, currently : Status: Acute Comment: first (4) : Status: Acute Qualifiers: Weeks of gestation: 26 weeks Qualified Code(s): Z3A.26 - 26 weeks gestation of Comment: NIPT low risk, f/u anatomy complete & nl. (5) History of chorioamnionitis: Status: Acute Comment: first Orders: Orders POC Urinalysis 2 Dip (Clinic) Today Plan Details Additional Comments: ACOG trimester education reviewed and updated. see problem list details for updated plan management information and see below for orders placed atthis visit. GA appropriate handout given. Clinical Quality Measures Falls Risk Screening/Assistive Devices Have you fallen in the past year?: No 10/02/24 1445 s CNM> Date _ Kecia Faye CNM Cosigner Signature: Date (if applicable) CC: ~ [facility]06-02-2025 Progress note Author Kecia Faye [facility] Note Date/Time October 02, 2024 2:45p [facility] [address] [place] [address], [address] [place] [address] OFFICE VISIT Date of Service: 10/02/24 MR#: [id number] Acct: [id number] Name: MARIBEL CROCKETT Rep #: [id number] : 1990 Provider: LEYLA Faye Age/Sex: 34/F Location: [facility] Status: Signed Intake Vital Signs 08/09/24 15:05 09/06/24 14:13 10/02/24 14:24 Height 5 ft 7.5 in 5 ft 7.5 in 5 ft 7.5 in Weight: 139 lb 4 oz BMI 21.4 BP 96/65 Intake Visit Reasons: 27 WK OB/GLUCOSE Chief Complaint: 27wk OB Inspector Cold Working Required: No Is patient in pain?: No Allergies No Known Allergies Allergy (Verified 10/02/24 14:26) Medications ?Medication ?Instructions ?Recorded ?Confirmed ?Type PNV 153-FA 400 mcg-om3 35 mg-dha tab PO 06/02/2410/02 History 25 mg-epa 5 mg-fish oil chew tablet ondansetron HCl 4 mg tablet 4 mg PO Q8H PRN 06/02/24 0 10/02/24 History Last Menstrual Period: 03/30/24 : No Have you fallen in the past year?: No PFSH PFSH Medical History Varicose vein vulva-delivered FH: breast cancer Cystitis during , antepartum False labor Gestational thrombocytopenia 30 weeks gestation of Surgical History H/O basal cell carcinoma excision History of surgery History of surgery History of surgery Family History Grandmother Breast cancer, Onset Age: 65 Maternal- mets to liver Grandfather Myocardial infarction, Onset Age: 78 Paternal Social History adopted: No household members: spouse and children number of children: 2 current occupational status: unemployed current occupation: [employer] pets and animals: Yes pets and animals: dog(s) history of recent travel: No sexually active: Yes Smoking Status: Never smoker alcohol intake: current alcohol intake frequency: a few times a month details: Not while substance use type: does not use well-balanced diet: daily or most days caffeine: Yes Type: coffee Number of servings: 2 eating out: rarely or never during the past year weight has: remained stable what type of physical activity do you participate in: none ramesh/congregation: Gnosticism seatbelt use: always do you feel safe at home: Yes 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 Date Name GA/Weeks Outcome Route Bth Weight Infant Gen Labor Lgth Anesthesia Del Locatn Provider FOB 08/24/19 Scotlyn 36 live - vacuum 6lb 8 oz Female 12 e pidural [facility] Ibis Rush 02/22/21 Ivette 38 live - full term 6# 8oz Female epi dural [facility] Nehemias Rush Delivery Date: 08/24/19 Last Updated by: Carlee He MD pprom, labor, chorioamnionitis Delivery Date: 02/22/21 Last Updated by: Patricia Nichols iol, , prolapse(vulvo-vaginal varicosity) at 26 wks and two more times after- no problems since HPI 27 WK OB/GLUCOSE Details: MARIBEL CROCKETT is a 34 year old who presents for routine OB visit. OB Visit MARGO Calculator Estimated Delivery Date Method Current WG Current Estimate 01/04/25 LMP (Uncertain) 26w 4d Other Estimates 01/02/25 Ultrasound #1 26w 6d Expected Delivery Route/Plan Labor Preferences- CB/BF classes: no labor support person: Victor Manuel labor intervention preferences: [] pain management options preferred: discussed cut cord/dad catch: cord : yes PP control planned: discussed discussed possible routes of delivery and associated risks: [] special requests: [] Specific Issue/Plans Covid status: [] Flu vaccine: [] Tdap vaccine: [] Rhogam: [] LARC form signed: [] Problem list reviewed and updated with the most current plan of care details and appropriate orders placed. Relevant counseling for the gestational age provided. Continue routine care and follow up unless otherwise noted in visit notes/problem list details Initial Weight: Not Recorded Date -?-?-?-?-?-?-?-?-?-?-?-?- EGA Weight BP Urine Prot -?-?-?-?-?-?-?-?-?-?-?-?- Glucose FHR FuHt Pres Dilation -?-?-?-?-?-?-?-?-?-?-?-?- Effaced St Visit Note 06/09/24 -?-?-?-?-?-?-?-?-?-?-?-?- 10w 1d 121 lb 6 oz 116/80 -?-?-?-?-?-?-?-?-?-?-?-?- 175 -?-?-?-?-?-?-?-?-?-?-?-?- SM- CRL 3.5 cm c ons with LMP 07/14/24 -?-?-?-?-?-?-?-?-?-?-?-?- 15w 1d 126 lb 2 oz 115/75 Nega tive -?-?-?-?-?-?-?-?-?-?-?-?- Negative 164 -?-?-?-?-?-?-?-?-?-?-?-?- JV- has complain t about headaches from sinus congestion which is also secondary to allergies. anatomy ultrasound ordered. 08/09/24 -?-?-?-?-?-?-?-?-?-?-?-?- 18w 6d 130 lb 103/65 Negative -?-?-?-?-?-?-?-?-?-?-?-?- Negative 150 -?-?-?-?-?-?-?-?-?-?-?-?- SM- no vb lof co vulvar discomfort, has had even before 09/06/24 -?-?-?-?-?-?-?-?-?-?-?-?- 22w 6d 134 lb 8 oz 106/70 Nega tive -?-?-?-?-?-?-?-?-?-?-?-?- Negative 153 -?-?-?-?-?-?-?-?-?-?-?-?- MH-No VB, LOF. G oodFM. No concerns 10/02/24 -?-?-?-?-?-?-?-?-?-?-?-?- 26w 4d 139 lb 4 oz 96/65 Nega tive -?-?-?-?-?-?-?-?-?-?-?-?- Negative 155 25 -?-?-?-?-?-?-?-?-?-?-?-?- KW- no vb/crampi ng. good fm. glucose today. support belt for pelvic pain. ACOG First Trimester First Trimester: Discussed ROS Const Reports system reviewed and no additional complaints, except as documented Eyes Reports system reviewed and no additional complaints, except as documented ENT Reports system reviewed and no additional complaints, except as documented Card Reports system reviewed and no additional complaints, except as documented Resp Reports system reviewed and no additional complaints, except as documented GI Reports system reviewed and no additional complaints, except as documented, Denies nausea and Denies vomiting Reports system reviewed and no additional complaints, except as documented Musc Reports system reviewed and no additional complaints, except as documented Skin/Breast Reports system reviewed and no additional complaints, except as documented Neuro Yes system reviewed and no additional complaints, except as documented Psych Reports system reviewed and no additional complaints, except as documented Endo Reports system reviewed and no additional complaints, except as documented Toni/Lymph Reports system reviewed and no additional complaints, except as documented Aller/Immun Reports system reviewed and no additional complaints, except as documented Exam Const General: cooperative, healthy appearing and no acute distress Orientation: alert, awake and oriented x3 Neck Neck: normal visual inspection and full ROM Resp Effort & Inspection: normal respiratory effort, able to speak in complete sentences and symmetric chest movement GI Inspection: normal to inspection Palpation: soft and other Other: gravid Skin General: no rashes or lesions noted Neuro General: patient alert, patient awake and patient oriented x3 Cognition: normal cognition Speech: speech normal Gait: normal gait Motor: muscle tone normal throughout Extrem General: normal to inspection and full ROM Psych Appearance: grossly normal Mental Status: mental status grossly normal Mood: congruent mood Affect: normal affect Speech and Movement: speech and movement normal Attitude: cooperative Thought Process: normal Thought Content: normal Judgment: judgment good Results POC Urinalysis 2 Dip (Clinic) Office Urine Glucose Negative Last Edit by Odalys Post on 10/02/24 14:30 Office Urine Protein Negative Last Edit by Odalys Post on 10/02/24 14:30 Coding Level of Care Code OB Routine Diagnoses Hx of delivery, currently O09.899 Supervision of high risk in second trimester O09.92 Trimester: second trimester Hx of delivery by vacuum extraction, currently O09.299 26 weeks gestation of Z3A.26 Weeks of gestation: 26 weeks History of chorioamnionitis Z87.59 Assessment and Plan Assessment and Plan (1) Hx of delivery, currently : Status: Acute Comment: first 36 wks (2) Supervision of high-risk : Status: Acute Qualifiers: Trimester: second trimester Qualified Code(s): O09.92 - Supervision of high risk , unspecified, second trimester Comment: PRR , MARGO 01/04/25,girl PC Ivette Arellano Victor Manuel (3) Hx of delivery by vacuum extraction, currently : Status: Acute Comment: first (4) : Status: Acute Qualifiers: Weeks of gestation: 26 weeks Qualified Code(s): Z3A.26 - 26 weeks gestation of Comment: NIPT low risk, f/u anatomy complete & nl. (5) History of chorioamnionitis: Status: Acute Comment: first Orders: Orders POC Urinalysis 2 Dip (Clinic) Today Plan Details Additional Comments: ACOG trimester education reviewed and updated. see problem list details for updated plan management information and see below for orders placed at this visit. GA appropriate handout given. Clinical Quality Measures Falls Risk Screening/Assistive Devices Have you fallen in the past year?: No 10/02/24 2907 <Electronically signed by Kecia dillard CNM> Date _ Kecia Faye CNM Cosigner Signature: Date (if applicable) CC: ~ [facility] [employer] Work Phone: 1(167) 566-866504-09-2025 Evaluation note* Diagnosis Onset Date Resolution Status Admit Date History of chorioamnionitis acute August 09, 2024 2:55pm Hx of delivery by vacuum extraction, currently acute A pril 2024 2:55pm Hx of delivery, curr ently acute August 09, 2024 2:55pm acute August 09 2:55pm Supervision of high-risk acute August 09, 2024 2:55pm History of chorioamnionitis acute September 06, 2024 2:08pm Hx of delivery by vacuum extraction, currently acute M ay 2024 2:08pm Hx of delivery, curr ently acute September 06, 2024 2: 08pm acute September 06, 2024 2:08pm Supervision of high-risk acute September 06, 2024 2: 08pm History of chorioamnionitis acute October 02, 2024 2:10pm Hx of delivery by vacuum extraction, currently acute J [facility] 2024 2:10pm Hx of delivery, curr ently acute October 02, 2024 2 :10pm acute October 02, 2024 2:10pm Supervision of high-risk acute October 02, 2024 2 :10pm Cystocele with incomplete uterovaginal prolapse acute October 04, 2024 10:31am History of chorioamnionitis acute October 04, 2024 10:31am Hx of delivery by vacuum extraction, currently acute J [facility] 2024 10:31am Hx of delivery, curr ently acute October 04, 2024 1 0:31am acute October 04, 2024 10:31am Supervision of high-risk acute October 04, 2024 1 0:31am UTI in acute October 10:31am Thrombocytopenia affecting chronic October 04, 2024 1 0:31am Nasal septum ulceration acute J [facility] 2024 9:06am Thrombocytopenia affecting chronic October 17, 2024 9:06am Cystocele with incomplete uterovaginal prolapse acute October 23, 2024 2:49pm History of chorioamnionitis acute October 23, 2024 2:49pm Hx of delivery by vacuum extraction, [facility] 2:49pm Hx of delivery, curr ently acute October 23, 2024 2:49pm Nasal septum ulceration acute [facility] 2:49pm acute October 23 2:49pm Supervision of high-risk acute October 23, 2024 2:49pm UTI in acute October 2:49pm Thrombocytopenia affecting chronic October 23, 2024 2:49pm Cystocele with incomplete uterovaginal prolapse acute November 08, 2024 3:37pm History of chorioamnionitis acute November 08, 2024 3:37pm Hx of delivery by vacuum extraction, currently acute [facility] 2024 3:37pm Hx of delivery, curr ently acute November 08, 2024 3 :37pm acute November 08, 2024 3:37pm Supervision of high-risk acute November 08, 2024 3 :37pm UTI in acute October 3:37pm Thrombocytopenia affecting chronic November 08, 2024 3 :37pm [facility] Work Phone: 1(374) 846-146404-09-2025 Evaluation note* Diagnosis Onset Date Resolution Status Admit Date History of chorioamnionitis acute August 09, 2024 2:55pm Hx of delivery by vacuum extraction, currently acute A pril 2024 2:55pm Hx of delivery, curr ently acute August 09, 2024 2:55pm acute August 09 2:55pm Supervision of high-risk acute August 09, 2024 2:55pm History of chorioamnionitis acute September 06, 2024 2:08pm Hx of delivery by vacuum extraction, currently acute M ay 2024 2:08pm Hx of delivery, curr ently acute September 06, 2024 2: 08pm acute September 06, 2024 2:08pm Supervision of high-risk acute September 06, 2024 2: 08pm History of chorioamnionitis acute October 02, 2024 2:10pm Hx of delivery by vacuum extraction, currently acute J [facility] 2024 2:10pm Hx of delivery, curr ently acute October 02, 2024 2 :10pm acute October 02, 2024 2:10pm Supervision of high-risk acute October 02, 2024 2 :10pm Cystocele with incomplete uterovaginal prolapse acute October 04, 2024 10:31am History of chorioamnionitis acute October 04, 2024 10:31am Hx of delivery by vacuum extraction, currently acute J [facility] 2024 10:31am Hx of delivery, curr ently acute October 04, 2024 1 0:31am acute October 04, 2024 10:31am Supervision of high-risk acute October 04, 2024 1 0:31am UTI in acute October 10:31am Thrombocytopenia affecting chronic October 04, 2024 1 0:31am Nasal septum ulceration acute J une 2024 9:06am Thrombocytopenia affecting chronic October 17, 2024 9:06am Cystocele with incomplete uterovaginal prolapse acute October 23, 2024 2:49pm History of chorioamnionitis acute October 23, 2024 2:49pm Hx of delivery by vacuum extraction, currently acute J 2024 2:49pm Hx of delivery, curr ently acute October 23, 2024 2:49pm Nasal septum ulceration acute J [facility] 2024 2:49pm acute October 23 2:49pm Supervision of high-risk acute October 23, 2024 2:49pm UTI in acute October 2:49pm Thrombocytopenia affecting chronic October 23, 2024 2:49pm Cystocele with incomplete uterovaginal prolapse acute November 08, 2024 3:37pm History of chorioamnionitis acute November 08, 2024 3:37pm Hx of delivery by vacuum extraction, currently acute J [email or web address] 3:37pm Hx of delivery, curr ently acute November 08, 2024 3 :37pm acute November 08, 2024 3:37pm Supervision of high-risk acute November 08, 2024 3 :37pm UTI in acute October 3:37pm Thrombocytopenia affecting chronic November 08, 2024 3 :37pm Cystocele with incomplete uterovaginal prolapse acute November 23, 2024 3:15pm History of chorioamnionitis acute November 23, 2024 3:15pm Hx of delivery by vacuum extraction, currently acute J 2024 3:15pm Hx of delivery, curr ently acute November 23, 2024 3:15pm Nasal septum ulceration acute [facility]20[facility] 3:15pm acute November 23 3:15pm Supervision of high-risk acute November 23, 2024 3:15pm UTI in acute October 3:15pm Thrombocytopenia affecting chronic November 23, 2024 3:15pm [facility] Work Phone: 1(444) 106-982703-14-2025 Evaluation note* Diagnosis Onset Date Resolution Status Admit Date History of chorioamnionitis acute July 14, 2024 1:20pm Hx of delivery by vacuum extraction, currently acute [facility] 2024 1:20pm Hx of delivery, curr ently acute July 14, 2024 1:20pm acute July 14 1:20pm Supervision of high-risk acute July 14, 2024 1:20pm History of chorioamnionitis acute August 09, 2024 2:55pm Hx of delivery by vacuum extraction, currently acute A pril 2024 2:55pm Hx of delivery, curr ently acute August 09, 2024 2:55pm acute August 09 2:55pm Supervision of high-risk acute August 09, 2024 2:55pm History of chorioamnionitis acute September 06, 2024 2:08pm Hx of delivery by vacuum extraction, currently acute M ay 2024 2:08pm Hx of delivery, curr ently acute September 06, 2024 2: 08pm acute September 06, 2024 2:08pm Supervision of high-risk acute September 06, 2024 2: 08pm History of chorioamnionitis acute October 02, 2024 2:10pm Hx of delivery by vacuum extraction, currently acute J [facility] 2024 2:10pm Hx of delivery, curr ently acute October 02, 2024 2 :10pm acute October 02, 2024 2:10pm Supervision of high-risk acute October 02, 2024 2 :10pm Cystocele with incomplete uterovaginal prolapse acute October 04, 2024 10:31am History of chorioamnionitis acute October 04, 2024 10:31am Hx of delivery by vacuum extraction, currently acute J [facility] 2024 10:31am Hx of delivery, curr ently acute October 04, 2024 1 0:31am acute October 04, 2024 10:31am Supervision of high-risk acute October 04, 2024 1 0:31am UTI in acute October 10:31am Thrombocytopenia affecting chronic October 04, 2024 1 0:31am Nasal septum ulceration acute J [facility] 2024 9:06am Thrombocytopenia affecting chronic October 17, 2024 9:06am [facility] Work Phone: 1(779) 328-654903-14-2025 Evaluation note* Diagnosis Onset Date Resolution Status Admit Date History of chorioamnionitis acute July 14, 2024 1:20pm Hx of delivery by vacuum extraction, currently acute M arch 2024 1:20pm Hx of delivery, curr ently acute July 14, 2024 1:20pm acute July 14 1:20pm Supervision of high-risk acute July 14, 2024 1:20pm History of chorioamnionitis acute August 09, 2024 2:55pm Hx of delivery by vacuum extraction, currently acute A pril 2024 2:55pm Hx of delivery, curr ently acute August 09, 2024 2:55pm acute August 09 2:55pm Supervision of high-risk acute August 09, 2024 2:55pm History of chorioamnionitis acute September 06, 2024 2:08pm Hx of delivery by vacuum extraction, currently acute M ay 2024 2:08pm Hx of delivery, curr ently acute September 06, 2024 2: 08pm acute September 06, 2024 2:08pm Supervision of high-risk acute September 06, 2024 2: 08pm History of chorioamnionitis acute October 02, 2024 2:10pm Hx of delivery by vacuum extraction, currently acute J [facility] 2024 2:10pm Hx of delivery, curr ently acute October 02, 2024 2 :10pm acute October 02, 2024 2:10pm Supervision of high-risk acute October 02, 2024 2 :10pm Cystocele with incomplete uterovaginal prolapse acute October 04, 2024 10:31am History of chorioamnionitis acute October 04, 2024 10:31am Hx of delivery by vacuum extraction, currently acute J [facility] 2024 10:31am Hx of delivery, curr ently acute October 04, 2024 1 0:31am acute October 04, 2024 10:31am Supervision of high-risk acute October 04, 2024 1 0:31am UTI in acute October 10:31am Thrombocytopenia affecting chronic October 04, 2024 1 0:31am Nasal septum ulceration acute J [facility] 2024 9:06am Thrombocytopenia affecting chronic October 17, 2024 9:06am Cystocele with incomplete uterovaginal prolapse acute October 23, 2024 2:49pm History of chorioamnionitis acute October 23, 2024 2:49pm Hx of delivery by vacuum extraction, currently acute J une 2024 2:49pm Hx of delivery, curr ently acute October 23, 2024 2:49pm Nasal septum ulceration acute J une 2024 2:49pm acute October 23 2:49pm Supervision of high-risk acute October 23, 2024 2:49pm UTI in acute October 2:49pm Thrombocytopenia affecting chronic October 23, 2024 2:49pm [facility] Work Phone: 1(225) 189-255103-14-2025 Evaluation note* Diagnosis Onset Date Resolution Status Admit Date History of chorioamnionitis acute July 14, 2024 1:20pm Hx of delivery by vacuum extraction, currently acute M arch 2024 1:20pm Hx of delivery, curr ently acute July 14, 2024 1:20pm acute July 14 1:20pm Supervision of high-risk acute July 14, 2024 1:20pm History of chorioamnionitis acute August 09, 2024 2:55pm Hx of delivery by vacuum extraction, currently acute A pril 2024 2:55pm Hx of delivery, curr ently acute August 09, 2024 2:55pm acute August 09 2:55pm Supervision of high-risk acute August 09, 2024 2:55pm History of chorioamnionitis acute September 06, 2024 2:08pm Hx of delivery by vacuum extraction, currently acute M ay 2024 2:08pm Hx of delivery, curr ently acute September 06, 2024 2: 08pm acute September 06, 2024 2:08pm Supervision of high-risk acute September 06, 2024 2: 08pm History of chorioamnionitis acute October 02, 2024 2:10pm Hx of delivery by vacuum extraction, currently acute J une 2024 2:10pm Hx of delivery, curr ently acute October 02, 2024 2 :10pm acute October 02, 2024 2:10pm Supervision of high-risk acute October 02, 2024 2 :10pm Cystocele with incomplete uterovaginal prolapse acute October 04, 2024 10:31am History of chorioamnionitis acute October 04, 2024 10:31am Hx of delivery by vacuum extraction, currently acute [facility] 10:31am Hx of delivery, curr ently acute October 04, 2024 1 0:31am acute October 04, 2024 10:31am Supervision of high-risk acute October 04, 2024 1 0:31am UTI in acute October 10:31am Thrombocytopenia affecting chronic October 04, 2024 1 0:31am Nasal septum ulceration acute J [facility] 2024 9:06am Thrombocytopenia affecting chronic October 17, 2024 9:06am Cystocele with incomplete uterovaginal prolapse acute October 23, 2024 2:49pm History of chorioamnionitis acute October 23, 2024 2:49pm Hx of delivery by vacuum extraction, currently acute [facility] 2024 2:49pm Hx of delivery, curr ently acute October 23, 2024 2:49pm Nasal septum ulceration acute [facility] 2024 2:49pm acute October 23 2:49pm Supervision of high-risk acute October 23, 2024 2:49pm UTI in acute October 2:49pm Thrombocytopenia affecting chronic October 23, 2024 2:49pm Cystocele with incomplete uterovaginal prolapse acute November 08, 2024 3:37pm History of chorioamnionitis acute November 08, 2024 3:37pm Hx of delivery by vacuum extraction, currently acute [facility] 2024 3:37pm Hx of delivery, curr ently acute November 08, 2024 3 :37pm Nasal septum ulceration acute [facility] 2024 3:37pm acute November 08, 2024 3:37pm Supervision of high-risk acute November 08, 2024 3 :37pm UTI in acute October 3:37pm Thrombocytopenia affecting chronic November 08, 2024 3 :37pm [facility] Work Phone: 1(991) 250-851202-07-2025 Evaluation note* Diagnosis Onset Date Resolution Status Admit Date History of chorioamnionitis acute June 09, 2024 10:08am Hx of delivery by vacuum extraction, currently acute F [email or web address] 10:08am Hx of delivery, currently acute June 09, 2024 10:08am acute June 09, 2024 10:08am Supervision of high-risk acute June 09 10:08am History of chorioamnionitis acute July 14, 2024 1:20pm Hx of delivery by vacuum extraction, currently acute M arch 2024 1:20pm Hx of delivery, currently acute July 14, 2 025 1:20pm acute July 14 1:20pm Supervision of high-risk acute July 14, 2024 1:20pm History of chorioamnionitis acute August 09, 2024 2:55pm Hx of delivery by vacuum extraction, currently acute A pril 2024 2:55pm Hx of delivery, currently acute August 09 2:55pm acute August 09 2:55pm Supervision of high-risk acute August 09, 2024 2:55pm History of chorioamnionitis acute September 06, 2024 2:08pm Hx of delivery by vacuum extraction, currently acute M 2024 2:08pm Hx of delivery, currently acute September 06, 2024 2:08pm acute September 06, 2024 2:08pm Supervision of high-risk acute September 06, 2024 2: 08pm History of chorioamnionitis acute October 02, 2024 2:10pm Hx of delivery by vacuum extraction, currently acute J [facility] 2024 2:10pm Hx of delivery, currently acute October 02 2:10pm acute October 02, 2024 2:10pm Supervision of high-risk acute October 02, 2024 2 :10pm [facility] Work Phone: 1(706) 322-718302-07-2025 Evaluation note* Diagnosis Onset Date Resolution Status Admit Date History of chorioamnionitis acute June 09, 2024 10:08am Hx of delivery by vacuum extraction, currently acute F [email or web address] 10:08am Hx of delivery, currently acute June 09, 2024 10:08am acute June 09, 2024 10:08am Supervision of high-risk acute June 09 10:08am History of chorioamnionitis acute July 14, 2024 1:20pm Hx of delivery by vacuum extraction, currently acute M arch 2024 1:20pm Hx of delivery, currently acute July 14, 2 025 1:20pm acute July 14 1:20pm Supervision of high-risk acute July 14, 2024 1:20pm History of chorioamnionitis acute August 09, 2024 2:55pm Hx of delivery by vacuum extraction, currently acute A pril 2024 2:55pm Hx of delivery, currently acute August 09 2:55pm acute August 09 2:55pm Supervision of high-risk acute August 09, 2024 2:55pm History of chorioamnionitis acute September 06, 2024 2:08pm Hx of delivery by vacuum extraction, currently acute M ay 2024 2:08pm Hx of delivery, currently acute September 06, 2024 2:08pm acute September 06, 2024 2:08pm Supervision of high-risk acute September 06, 2024 2: 08pm History of chorioamnionitis acute October 02, 2024 2:10pm Hx of delivery by vacuum extraction, currently acute J une 2024 2:10pm Hx of delivery, currently acute October 02 2:10pm acute October 02, 2024 2:10pm Supervision of high-risk acute October 02, 2024 2 :10pm Cystocele with incomplete uterovaginal prolapse acute October 04, 2024 10:31am History of chorioamnionitis acute October 04, 2024 10:31am Hx of delivery by vacuum extraction, currently acute J une 2024 10:31am Hx of delivery, currently acute October 04 10:31am acute October 04, 2024 10:31am Supervision of high-risk acute October 04, 2024 1 0:31am Thrombocytopenia affecting acute October 04, 2024 1 0:31am UTI in acute October 10:31am [facility] Work Phone: 1([phone]) 297-514602-07-2025 Evaluation note* Diagnosis Onset Date Resolution Status Admit Date History of chorioamnionitis acute June 09, 2024 10:08am Hx of delivery by vacuum extraction, currently acute F ebruary 2024 10:08am Hx of delivery, currently acute June 09, 2024 10:08am acute June 09, 2024 10:08am Supervision of high-risk acute June 09 10:08am History of chorioamnionitis acute July 14, 2024 1:20pm Hx of delivery by vacuum extraction, currently acute M arch 2024 1:20pm Hx of delivery, currently acute July 14, 1:20pm acute July 14 1:20pm Supervision of high-risk acute July 14, 2024 1:20pm History of chorioamnionitis acute August 09, 2024 2:55pm Hx of delivery by vacuum extraction, currently acute A pril 2024 2:55pm Hx of delivery, currently acute August 09 2:55pm acute August 09 2:55pm Supervision of high-risk acute August 09, 2024 2:55pm History of chorioamnionitis acute September 06, 2024 2:08pm Hx of delivery by vacuum extraction, currently acute M ay 2024 2:08pm Hx of delivery, currently acute September 06, 2024 2:08pm acute September 06, 2024 2:08pm Supervision of high-risk acute September 06, 2024 2: 08pm History of chorioamnionitis acute October 02, 2024 2:10pm Hx of delivery by vacuum extraction, currently acute J une 2024 2:10pm Hx of delivery, currently acute October 02 2:10pm acute October 02, 2024 2:10pm Supervision of high-risk acute October 02, 2024 2 :10pm History of chorioamnionitis acute October 04, 2024 10:31am Hx of delivery by vacuum extraction, currently acute J une 2024 10:31am Hx of delivery, currently acute October 04 10:31am acute October 04, 2024 10:31am Supervision of high-risk acute October 04, 2024 1 0:31am Thrombocytopenia affecting acute October 04, 2024 1 0:31am [facility] Work Phone: 1(117) 810-214111-26-2024 History of Present illness Narrative* Mlie Zee MA - 03/28/2024 11:20 AM EST Subjective Patient ID: Maribel Crockett is a 34 y.o. female who presents for patient woke up yesterday feel fatigue and their glands were swollen. Patients childrens have the sniffles and cough. X 1 day. HPI Review of Systems Objective There were no vitals taken for this visit. Physical Exam Assessment/Plan * Tamika Sandhu MD - 03/28/2024 11:20 AM EST Subjective Maribel Crockett is a 34 y.o. female who presents for No chief complaint on file.. Here c/o 2 day h/o fatigue, swollen glands, sinus pressure. She has had sinus pressure, drainage since her dog hit her in the face about a year ago. Objective Visit Vitals BP 111/64 (BP Location: Left arm, Patient Position: Sitting, BP Cuff Size: Adult) Pulse (!) 117 Physical Exam Vitals reviewed. Constitutional: General: She is not in acute distress. HENT: Head: Normocephalic and atraumatic. Right Ear: Tympanic membrane normal. Left Ear: Tympanic membrane normal. Mouth/Throat: Mouth: Mucous membranes are moist. Comments: Mild erythema, no exudates. Cardiovascular: Rate and Rhythm: Normal rate and regular rhythm. Heart sounds: No murmur heard. Pulmonary: Effort: Pulmonary effort is normal. No respiratory distress. Breath sounds: Normal breath sounds. Skin: General: Skin is warm and dry. Neurological: General: No focal deficit present. Mental Status: She is alert. Mental status is at baseline. Assessment/Plan Problem List Items Addressed This Visit None Visit Diagnoses Acute sinusitis, recurrence not specified, unspecified location - Primary Relevant Medications amoxicillin (Amoxil) 875 mg tablet Tamika Sandhu MD [facility]: 1([phone]) 705-490511-26-2024 Instructions* Patient Instructions* Tamika Sandhu MD - 03/28/2024 11:20 AM EST We will treat with amoxicillin and also discussed referral to ENT for further evaluation of the sinus issues she has had. She will let us know if she needs a referral. [facility] Work Phone: 1(342) 876-605208-16-2024 History of Present illness Narrative* Mile Zee MA - 12/17/2023 9:00 AM EDT Subjective Patient ID: Maribel Crockett is a 33 y.o. female who presents for 6 month follow up. HPI Review of Systems Objective There were no vitals taken for this visit. Physical Exam Assessment/Plan * Tamika Sandhu MD - 12/17/2023 9:00 AM EDT Subjective Maribel Crockett is a 33 y.o. female who presents for No chief complaint on file.. Here for f/u ADD. She feels that the medication is working well for her. Feels like the current dose is working well. Objective Visit Vitals BP 96/62 (BP Location: Left arm, Patient Position: Sitting, BP Cuff Size: Adult) Pulse 93 Physical Exam Vitals reviewed. Constitutional: General: She is not in acute distress. Cardiovascular: Rate and Rhythm: Normal rate and regular rhythm. Heart sounds: No murmur heard. Pulmonary: Effort: Pulmonary effort is normal. No respiratory distress. Breath sounds: Normal breath sounds. Skin: General: Skin is warm and dry. Neurological: General: No focal deficit present. Mental Status: She is alert. Mental status is at baseline. Assessment/Plan Problem List Items Addressed This Visit Attention deficit disorder Tamika Sandhu MD [facility] Work Phone: 1([phone]) 480-285408-16-2024 Instructions* Patient Instructions* Tamika Sandhu MD - 12/17/2023 9:00 AM EDT Continue current medications. Follow up with specialists as scheduled. Follow up in 6 months, sooner if needed. [facility] Work Phone: 1(148) 301-320202-16-2024 History of Present illness Narrative* Mile Zee MA - 06/18/2023 10:40 AM EST Subjective Patient ID: Maribel Crockett is a 33 y.o. female who presents for 6 month follow up and patient has hada cough for over a month and unable to get rid of it HPI Review of Systems Objective There were no vitals taken for this visit. Physical Exam Assessment/Plan * Tamika Sandhu MD - 06/18/2023 10:40 AM EST Subjective Maribel Crockett is a 33 y.o. female who presents for No chief complaint on file.. Here for f/u ADD. She feels that the medication is working well for her. Feels like the current dose is working well. She has had a cough for about a month, having a lot of sinus drainage. She has been coughing so hard that her left ribs are hurting. No known fevers. She had flu in May and was treated with tamiflu but has just not gotten better. Objective Visit Vitals BP 108/70 (BP Location: Left arm, Patient Position: Sitting, BP Cuff Size: Adult) Pulse (!) 120 Physical Exam Vitals reviewed. Constitutional: General: She is not in acute distress. Cardiovascular: Rate and Rhythm: Normal rate and regular rhythm. Heart sounds: No murmur heard. Pulmonary: Effort: Pulmonary effort is normal. No respiratory distress. Breath sounds: Normal breath sounds. Skin: General: Skin is warm and dry. Neurological: General: No focal deficit present. Mental Status: She is alert. Mental status is at baseline. Assessment/Plan Problem List Items Addressed This Visit Attention deficit disorder Relevant Orders Follow Up In Primary Care - Established Other Visit Diagnoses Acute sinusitis, recurrence not specified, unspecified location - Primary Relevant Medications amoxicillin-pot clavulanate (Augmentin) 875-125 mg tablet predniSONE (Deltasone) 20 mg tablet Tamika Sandhu MD [facility] Work Phone: 1([phone]) 609-647402-16-2024 Instructions* Patient Instructions* Tamika Sandhu MD - 06/18/2023 10:40 AM EST Will treat with augmentin and prednisone. Follow up if no improvement or if she worsens. Otherwise continue current medications and follow up in 6 months. [facility] Work Phone: 1([phone]) 193-945701-05-2024 History of Present illness Narrative* CAMILA Reid - 05/07/2023 9:05 AM EST [facility] CAMILA Reid Visit Note - 05/07/2023 9:37 AM This note was generated with voice recognition software and may contain errors including spelling, grammar, syntax, and misrecognization of what was dictated. Patient: Maribel Crockett, , 33 y.o., female PCP: Tamika Sandhu MD ALLERGIES: No Known Allergies CURRENT MEDICATIONS: Current Outpatient Medications Medication Instructions azelaic acid (Finacea) 15 % gel APPLY A THIN LAYER TO THE FACE EVERY MORNING. lisdexamfetamine (VYVANSE) 40 mg, oral, Every morning ondansetron ODT (ZOFRAN-ODT) 4 mg, oral, Every 8 hours PRN oseltamivir (TAMIFLU) 75 mg, oral, 2 times daily tretinoin (Retin-A) 0.05 % cream APPLY A THIN LAYER TO THE FACE NIGHTLY TOLERATED. PAST MEDICAL HX: Patient Active Problem List Diagnosis Attention deficit disorder Also has history of acne. SURGICAL HX: Past Surgical History: Procedure Laterality Date OTHER SURGICAL HISTORY 04/07/2022 Breast augmentation OTHER SURGICAL HISTORY 04/07/2022 Appendectomy OTHER SURGICAL HISTORY 04/07/2022 [place] tooth extraction FAMILY HX: No pertinent history. SOCIAL HX: reports that she has never smoked. She has never used smokeless tobacco. ; is a stay at [employer]. Has two young children. CHIEF COMPLAINT: Chief Complaint Patient presents with URI BODY ACHES, HEADACHES, CHILLS, COUGH X 1 DAY HISTORY OF PRESENT ILLNESS: The history was obtained from patientSelam López is a 33 y.o. female, who presents with a chief complaint of body aches, headaches, fatigue, sweating/chills, and a productive cough x 3 days. Has also had PND and a runny nose. Reports her currently has influenza B andis on Tamiflu. She denies having any sore throat, ear pain, abdominal pain, chest pain, wheezing/shortness of breath, rashes, urinary symptoms, nausea/vomiting, and diarrhea. Denies any lightheadedness or dizziness; no changes in mental status. No swelling in legs. Appetite is normal; is able to eat and drink fluids without difficulty; denies loss of sense of taste or smell. Reports symptoms havegotten worse since onset. Has been taking Tylenol without much relief; no other qwcy-bvs-spwhtzm medications or home remedies for symptom management. Has received the COVID vaccine x 1 . Last known COVID infection was in 2019. Is not a smoker. No known history of asthma/COPD/respiratory issues. REVIEW OF SYSTEMS: 10 systems reviewed negative with exception of history of present illness as listed above. TODAY'S VITALS: BP 110/73 Pulse (!) 112 Temp 36.4 C (97.6 F) Resp 16 Ht 1.702 m (5' 7") Wt 52.2 kg (115 lb) LMP 05/07/2023 SpO2 96% BMI 18.01 kg/m Recheck HR: 104. PHYSICAL EXAMINATION: General: Mildly ill-appearing, well nourished female; alert and oriented; in no acute distress. Sitting comfortably on exam table. Non-dyspneic. Eyes: Pupils equal, round and reactive to light. No conjunctival erythema; no scleral icterus. HENT: No frontal or maxillary sinus tenderness; + audible nasal congestion. Airway patent, TMs and ear canals clear/unremarkable bilaterally. Nasal mucosa mildly injected and edematous. Oral mucosa moist. Posterior pharynx mildly injected but without vesicles or oropharyngeal exudate aside from PND. Uvula is midline. Managing oral secretions without difficulty. Neck: Supple. Mildly tender, mobile anterior cervical lymphadenopathy bilat. Trachea is midline. Respiratory: Respirations easy and unlabored, Breath sounds equal. Lungs are clear to auscultation;no wheezes, rhonchi, or rales; has good air movement throughout. + productive cough noted. Non-dyspneic with ambulation; able to maintain SpO2. Cardiovascular: Normal rate, Regular rhythm. Normal S1S2. No m/r/g. No peripheral edema. Gastrointestinal: Soft, non-tender, non-distended; no palpable masses or organomegaly. Bowel soundsnormoactive. Musculoskeletal: Grossly normal; appropriate for age. Integumentary: [place], warm, dry, and intact. No rashes or skin discoloration appreciated. Good skin turgor. Neurologic: Alert and oriented, no gross deficits. Cognition and Speech: Oriented, Speech clear and coherent. Psychiatric: Cooperative, Appropriate mood & affect. Medical Decision Making LABORATORY or RADIOLOGICAL IMAGING ORDERS/RESULTS: None. IMPRESSION/PLAN: Course: Worsening; stable 1. Influenza - oseltamivir (Tamiflu) 75 mg capsule; Take 1 capsule (75 mg) by mouth 2 times a day for 5 days. Dispense: 10 capsule; Refill: 0 - ondansetron ODT (Zofran-ODT) 4 mg disintegrating tablet; Take 1 tablet (4 mg) by mouth every 8 hours if needed for nausea or vomiting. Dispense: 10 tablet; Refill: 0 No red flags on exam; symptoms suspicious for Influenza B based on her known exposure within her household. She declines testing at this point. Per her request, as sxs have been ongoing for <48 hours, will begin Tamiflu (as well as Zofran, per her request, as she reports this was helpful during a prior year's use of Tamiflu). Instructed to increase her fluid intake, continue conservative measures for management of symptoms, as well. Patient was advised to follow-up with her primary care provider for any persisting symptoms or additional concerns in 3-5 days. Patient agrees plan of care, questions were encouraged and answered. CAMILA Reid Advanced Practice Provider [facility] documented in this [facility] Work Phone: [phone]) 190-889308-14-2023 History of Present illness Narrative* Debbie Otero CMA - 12/14/2022 9:20 AM EDT Subjective Patient ID: Maribel Crockett is a 32 y.o. female who presents for 3 month check HPI Review of Systems Objective There were no vitals taken for this visit. Physical Exam Assessment/Plan * Tamika Sandhu MD - 12/14/2022 9:20 AM EDT Subjective Maribel Crockett is a 32 y.o. female who presents for No chief complaint on file.. Here for f/u ADD. She feels that the medication is working well for her. Feels like the current dose is working well. Objective Visit Vitals BP 116/76 Pulse 92 Physical Exam Vitals reviewed. Constitutional: General: She is not in acute distress. Pulmonary: Effort: Pulmonary effort is normal. No respiratory distress. Skin: General: Skin is warm and dry. Neurological: General: No focal deficit present. Mental Status: She is alert. Mental status is at baseline. Assessment/Plan Problem List Items Addressed This Visit Attention deficit disorder - Primary Tamika Sandhu MD [facility] Work Phone: 1(284) 265-395208-14-2023 Instructions* Patient Instructions* Tamika Sandhu MD - 12/14/2022 9:20 AM EDT Continue current medications. Follow up in 6 months, sooner if needed. [facility] Work Phone: 1([phone]) 352-922905-02-2023 History of Present illness Narrative* Porsha Lord MA - 09/01/2022 10:00 AM EDT Pt is here today for 4 month check up. * Tamika Sandhu MD - 09/01/2022 10:00 AM EDT Subjective Maribel Crockett is a 32 y.o. female who presents for No chief complaint on file.. Here for f/u ADD. She states that the medication is working well for her right now but it does wearoff early in the day - she would be interested in increasing and we will go up to 40 mg daily. Objective Visit Vitals BP 112/70 Pulse 100 Physical Exam Vitals reviewed. Constitutional: General: She is not in acute distress. Pulmonary: Effort: Pulmonary effort is normal. No respiratory distress. Skin: General: Skin is warm and dry. Neurological: General: No focal deficit present. Mental Status: She is alert. Mental status is at baseline. Assessment/Plan Problem List Items Addressed This Visit Other Attention deficit disorder Tamika Sandhu MD [facility] Work Phone: 1([phone]) 183-659905-02-2023 Instructions* Patient Instructions* Tamika Sandhu MD - 09/01/2022 10:00 AM EDT Will increase the vyvanse to 40 mg daily, follow up here in 3 months, sooner if needed. [facility] Work Phone: 1([phone]) 924-321609-03-2021 NoteHNO ID: [id number] Author: Trevor Mireles PT Service: ? Author Type: Physical Therapist Type: Progress Notes Filed: 03/04/2021 11:23 AM Note Text: 03/04/2021 [facility] PHYSICAL THERAPY DISCONTINUANCE OF CARE Plan of Care Period: Start of Care Date: 01/03/21 Last Visit Date: 01/03/2021 Therapy Program: Patient did not return for follow up care as planned. Please refer to last visit note for interventions provided for this episode of care. Assessment: Unable to formally assess goal achievement. Reason for Discontinuation of Care: Patient has not returned to therapy or scheduled additional follow-up appointments. Trevor Mireles PT Episode Visit Count: 1 Therapist That Will Oversee The Plan Of Care: Trevor Mireles Start of Care Date: 01/03/21 Onset Date: 12/13/20 Patient Identified by Name and Date of : Yes REHABILITATION AND SPORTS THERAPY PHYSICAL THERAPY EVALUATION PLAN OF CARE: Assessment: Maribel Crockett presents with the chief complaint of pelvic organ prolapse. She presents with impairments of decreased core strength; feeling of pelvic pressure. Pelvic floor muscle assessment deferred due to current , can perform after delivery once cleared by physician. She may benefit from skilled therapy services to increase strength, improve pelvic organ prolapse symptoms, and improve overall functional activities. Prognosis: Good Good due to: current objective clinical presentation Goals for Episode of Care: created on 01/03/21 through 03/04/21 [place] in home exercise program. Patient will demonstrate increase in core strength to at least 4/5 during manual muscle testing in order to improve function for prior functional tasks. Incontinence: Increase strength of pelvic floor to Power: at least 3/5-TBA Patient demonstrates ability to perform diaphragmatic breathing / relaxation Patient demonstrates ability to correctly isolate pelvic floor muscles-TBA Patient displays improved muscle dynamics of pelvic floor including ability to lengthen muscles-TBA Patient reports improved pelvic organ prolapse symptoms compared to baseline. Patient Goals: improve pelvic pressure, "know how to relax pelvic muscles for delivery" Planned Interventions, Frequency, and Duration: Current Frequency: 1x/week Duration: 3 weeks (reassess at 3 weeks and progress as indicated) Total Number of Visits Planned: 3 Planned Treatment Interventions: Therapeutic exercise (49699);Manual therapy (96464);Self-long-term management (26894);Patient/Family/Caregiver Education PLAN FOR NEXT VISIT: progress strengthening exercises as tolerated Patient demonstrates good understanding of plan of care and treatment. The above goals and plan of care were discussed and agreed upon by patient/family. SUBJECTIVE: Pt is 32 weeks . Pt reports going to the hospital a few weeks ago, thinking she was having the baby due to having a bulge in vaginal canal. Pt reports [facility] determined it was prolapse. Pt reports wearing belly belt, which helps with pressure. 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 Intake Information: Prescription present Previous Treatment: None Falls Interview: No positive findings with falls interview Aquatic Screen: No PAST MEDICAL HISTORY Diagnosis Date - PMH - PAST MEDICAL HISTORY OF stap [place] PAST SURGICAL HISTORY Procedure Laterality Date - PAST SURGICAL HISTORY OF wisdom teeth Pain: Pain Pain Level: 0 Pain Location: (pelvic floor) Post Treatment Pain Post Treatment Pain Level: No Change PROMIS Scales T-scores: mean of general population = 50. 5 points is clinically meaningfully difference Percentiles provide an indication of how the patient's score ranks in relation to the general population. Higher percentile rankings indicate better function/quality of life. 50th percentile is the average of the general population and indicates half of respondents had a worse score. T-scores: mean of general population = 50. 5 points is clinically meaningfully difference Percentiles provide an indication of how the patient's score ranks in relation to the general population. Higher percentile rankings indicate better function/quality of life. 50th percentile is the average of the general population and indicates half of respondents had a worse score. OBJECTIVE MEASURES WITH LEVEL OF FUNCTION: Pelvic Floor Pregnancies: 2 Births: 1 Vaginal Delivery: Vacuum assisted Pain with penetration: No Urinary/Bowel History : Urinary History;Bowel History Difficulty starting stream: (more content not included)...[facility] Diagnosis Attention deficit disorder, unspecified hyperactivity presence documented in this encounter [facility] Work Phone: Evaluation note* Diagnosis Attention deficit disorder, unspecified hyperactivity presence- Primary documented in this encounter [facility] Work Phone: Evaluation note* Diagnosis Influenza- Primary Influenza with other respiratory manifestations documented in this encounter [facility] Work Phone: Evaluation note* Diagnosis Acute sinusitis, recurrence not specified, unspecified location- Primary Attention deficit disorder, unspecified hyperactivity presence documented in this encounter [facility] Work Phone: Evaluation note* Diagnosis Acute sinusitis, recurrence not specified, unspecified location- Primary documented in this encounter [facility] Work Phone: Evaluation note* Diagnosis Attention deficit disorder, unspecified hyperactivity presence documented in this encounter [facility] Work Phone: History of Present illness NarrativeHere for f/u recent labs, ADHD. We did get her records from her psychiatrist.-[facility] Work Phone: Reason for referral (narrative)* Consultation (Routine) - Authorized Specialty Diagnoses / Procedures Referred By Atul t Referred To Contact Primary Care Diagnoses Attention deficit disorder, unspecified hyperactivity presence Procedures Follow Up In Primary Care - Established Tamika Sandhu MD [address] [facility] [place] [address] Referral ID Status Reason Start Date Expiration Date V isits Requested Visits Authorized [id number] Authorized 12/14/2022 06/12/2023 1 1 [facility] Work Phone: [place] for referral (narrative)* Consultation (Routine) - Authorized Specialty Diagnoses / Procedures Referred By Contac t Referred To Contact Primary Care Diagnoses Attention deficit disorder, unspecified hyperactivity presence Procedures Follow Up In Primary Care - Established Tamika Sandhu MD [address] [place] [address] Referral ID Status Reason Start Date Expiration Date V isits Requested Visits Authorized [id number] Authorized 06/18/2023 06/17/2024 1 1 [facility] Work Phone: Rejenp for referral (narrative)* Consultation (Routine) - Authorized Specialty Diagnoses / Procedures Referred By Contac t Referred To Contact Primary Care Procedures Follow Up In Primary Care - Established Tamika Sandhu MD [address] [place] [address] Referral ID Status Reason Start Date Expiration Date V isits Requested Visits Authorized [id number] Authorized 12/17/2023 12/16/2024 1 1 [facility] Work Phone: Refzpu for referral (narrative)No reason for referral information availableHazel [facility] Work Phone: Reason for visit Narrative* Consultation (Routine) - Closed Specialty Diagnoses / Procedures Referred By Contac t Referred To Contact Primary Care Diagnoses Attention deficit disorder, unspecified hyperactivity presence Procedures Follow Up In Primary Care - Established Tamika Sandhu MD [address] [facility] [place] [address] Referral ID Status Reason Start Date Expiration Date Visits Re quested Visits Authorized [id number] Closed 12/14/2022 06/12/2023 1 1 [facility] Work Phone: Reason for visit Narrative* Consultation (Routine) - Authorized Specialty Diagnoses / Procedures Referred By Contjoseline t Referred To Contact Primary Care Diagnoses Attention deficit disorder, unspecified hyperactivity presence Procedures Follow Up In Primary Care - Established Tamika Sandhu MD [address] [place] [address] Referral ID Status Reason Start Date Expiration Date V isits Requested Visits Authorized [id number] Authorized 06/18/2023 06/17/2024 1 1 [facility] Work Phone: Summary Purpose Family History Unknown Family Member Name Dates Details Family history of liver canc er: Maternal Grandmother(V16.0, Z80.0) Status:Active Family history of cardiac di sorder: Paternal Grandfather(V17.49, Z82.49) Status:Active Unknown Family Member Name Dates Details Family history of liver canc er: Maternal Grandmother(V16.0, Z80.0) Status:Active Family history of cardiac di sorder: Paternal Grandfather(V17.49, Z82.49) Status:Active Unknown Family Member Name Dates Details Family history of liver canc er: Maternal Grandmother(V16.0, Z80.0) Status:Active Family history of cardiac di sorder: Paternal Grandfather(V17.49, Z82.49) Status:Active Relationship Condition Age at Onset Recorded Date/T gloria grandmother Malignant neoplasm of breast 65 grandfather Myocardial infarction 78 Advance Directives No Advanced Directives Records FoundNo Advanced Directives Records FoundNo Advanced Directives Records FoundNo Advanced Directives Records FoundNo Advanced Directives Records FoundNo Advanced Directives Records FoundNo Advanced Directives Records FoundNo Advanced Directives Records FoundNo Advanced Directives Records Found Chief Complaint 2 week f/u, lab review Chief Complaint and Reason for Visit Chief Complaint Admit Date LMP 03/30/24 MARGO 01/04/25 June 09 10:08am 15 wk OB July 14, 2024 1:2 0pm 19wk ob August 09, 2024 2:55 pm 23 wk ob September 06, 2024 2:08pm INT LAB ORDERS October 02, 2024 1:54p m 27 WK OB/GLUCOSE October 02, 2024 2:10p m Reason for Visit Admit Date History of chorioamnionitis June 10:08am Hx of delivery by vacuum extraction, cur rently June 09, 2024 10:08am Hx of delivery, currently pregna nt June 09, 2024 10:08am June 09, 2024 1 0:08am Supervision of high-risk Febru [email or web address] 10:08am History of chorioamnionitis July 14, 2024 1:20pm Hx of delivery by vacuum extraction, cur rently July 14, 2024 1:20pm Hx of delivery, currently pregna nt July 14, 2024 1:20pm July 14, 2024 1:2 0pm Supervision of high-risk July 14, 2024 1:20pm History of chorioamnionitis August 09, 2 2:55pm Hx of delivery by vacuum extraction, cur rently August 09, 2024 2:55pm Hx of delivery, currently pregna nt August 09, 2024 2:55pm August 09, 2024 2:55 pm Supervision of high-risk August 09, 2024 2:55pm History of chorioamnionitis September 06 2:08pm Hx of delivery by vacuum extraction, cur rently September 06, 2024 2:08pm Hx of delivery, currently pregna nt September 06, 2024 2:08pm September 06, 2024 2:08pm Supervision of high-risk September 062024 2:08pm History of chorioamnionitis October 02 2:10pm Hx of delivery by vacuum extraction, cur rently October 02, 2024 2:10pm Hx of delivery, currently pregna nt October 02, 2024 2:10pm October 02, 2024 2:10p m Supervision of high-risk October 02, 2024 2:10pm Chief Complaint Admit Date LMP 03/30/24 MARGO 01/04/25 June 09 10:08am 15 wk OB July 14, 2024 1:2 0pm 19wk ob August 09, 2024 2:55 pm 23 wk ob September 06, 2024 2:08pm INT LAB ORDERS October 02, 2024 1:54p m 27 WK OB/GLUCOSE October 02, 2024 2:10p m Possible Prolapse 26w6d per MH October 04, 2024 10:31am Reason for Visit Admit Date History of chorioamnionitis June 10:08am Hx of delivery by vacuum extraction, cur rently June 09, 2024 10:08am Hx of delivery, currently pregna nt June 09, 2024 10:08am June 09, 2024 1 0:08am Supervision of high-risk Febru [email or web address] 10:08am History of chorioamnionitis July 14, 2024 1:20pm Hx of delivery by vacuum extraction, cur rently July 14, 2024 1:20pm Hx of delivery, currently pregna nt July 14, 2024 1:20pm July 14, 2024 1:2 0pm Supervision of high-risk July 14, 2024 1:20pm History of chorioamnionitis August 09, 2 2:55pm Hx of delivery by vacuum extraction, cur rently August 09, 2024 2:55pm Hx of delivery, currently pregna nt August 09, 2024 2:55pm August 09, 2024 2:55 pm Supervision of high-risk August 09, 2024 2:55pm History of chorioamnionitis September 06 2:08pm Hx of delivery by vacuum extraction, cur rently September 06, 2024 2:08pm Hx of delivery, currently pregna nt September 06, 2024 2:08pm September 06, 2024 2:08pm Supervision of high-risk September 062024 2:08pm History of chorioamnionitis October 02 2:10pm Hx of delivery by vacuum extraction, cur rently October 02, 2024 2:10pm Hx of delivery, currently pregna nt October 02, 2024 2:10pm October 02, 2024 2:10p m Supervision of high-risk October 02, 2024 2:10pm Cystocele with incomplete uterovaginal p rolapse October 04, 2024 10:31am History of chorioamnionitis October 04 10:31am Hx of delivery by vacuum extraction, cur rently October 04, 2024 10:31am Hx of delivery, currently pregna nt October 04, 2024 10:31am October 04, 2024 10:31 am Supervision of high-risk October 04, 2024 10:31am Thrombocytopenia affecting Dedrick 2024 10:31am UTI in October 04, 2024 10:31 am Reason for Visit Admit Date History of chorioamnionitis June 10:08am Hx of delivery by vacuum extraction, cur rently June 09, 2024 10:08am Hx of delivery, currently pregna nt June 09, 2024 10:08am June 09, 2024 1 0:08am Supervision of high-risk Febru [email or web address] 10:08am History of chorioamnionitis July 14, 2024 1:20pm Hx of delivery by vacuum extraction, cur rently July 14, 2024 1:20pm Hx of delivery, currently pregna nt July 14, 2024 1:20pm July 14, 2024 1:2 0pm Supervision of high-risk July 14, 2024 1:20pm History of chorioamnionitis August 09, 2:55pm Hx of delivery by vacuum extraction, cur rently August 09, 2024 2:55pm Hx of delivery, currently pregna nt August 09, 2024 2:55pm August 09, 2024 2:55 pm Supervision of high-risk August 09, 2024 2:55pm History of chorioamnionitis September 06 2:08pm Hx of delivery by vacuum extraction, cur rently September 06, 2024 2:08pm Hx of delivery, currently pregna nt September 06, 2024 2:08pm September 06, 2024 2:08pm Supervision of high-risk September 062024 2:08pm History of chorioamnionitis October 02 2:10pm Hx of delivery by vacuum extraction, cur rently October 02, 2024 2:10pm Hx of delivery, currently pregna nt October 02, 2024 2:10pm October 02, 2024 2:10p m Supervision of high-risk October 02, 2024 2:10pm History of chorioamnionitis October 04 10:31am Hx of delivery by vacuum extraction, cur rently October 04, 2024 10:31am Hx of delivery, currently pregna nt October 04, 2024 10:31am October 04, 2024 10:31 am Supervision of high-risk October 04, 2024 10:31am Thrombocytopenia affecting Dedrick 2024 10:31am Chief Complaint Admit Date 15 wk OB July 14, 2024 1:2 0pm 19wk ob August 09, 2024 2:55 pm 23 wk ob September 06, 2024 2:08pm INT LAB ORDERS October 02, 2024 1:54p m 27 WK OB/GLUCOSE October 02, 2024 2:10p m Possible Prolapse 26w6d per MH October 04, 2024 10:31am THROMBOCYTOPENIA October 17, 2024 9:06 am MED ONC October 17, 2024 10:1 8am Reason for Visit Admit Date History of chorioamnionitis July 14, 2024 1:20pm Hx of delivery by vacuum extraction, cur rently July 14, 2024 1:20pm Hx of delivery, currently pregna nt July 14, 2024 1:20pm July 14, 2024 1:2 0pm Supervision of high-risk July 14, 2024 1:20pm History of chorioamnionitis August 09, 2 025 2:55pm Hx of delivery by vacuum extraction, cur rently August 09, 2024 2:55pm Hx of delivery, currently pregna nt August 09, 2024 2:55pm August 09, 2024 2:55 pm Supervision of high-risk August 09, 2024 2:55pm History of chorioamnionitis September 06 2:08pm Hx of delivery by vacuum extraction, cur rently September 06, 2024 2:08pm Hx of delivery, currently pregna nt September 06, 2024 2:08pm September 06, 2024 2:08pm Supervision of high-risk September 062024 2:08pm History of chorioamnionitis October 02 2:10pm Hx of delivery by vacuum extraction, cur rently October 02, 2024 2:10pm Hx of delivery, currently pregna nt October 02, 2024 2:10pm October 02, 2024 2:10p m Supervision of high-risk October 02, 2024 2:10pm Cystocele with incomplete uterovaginal p rolapse October 04, 2024 10:31am History of chorioamnionitis October 04 10:31am Hx of delivery by vacuum extraction, cur rently October 04, 2024 10:31am Hx of delivery, currently pregna nt October 04, 2024 10:31am October 04, 2024 10:31 am Supervision of high-risk October 04, 2024 10:31am UTI in October 04, 2024 10:31 am Thrombocytopenia affecting Oct 10:31am Nasal septum ulceration October 17, 2024 9:06am Thrombocytopenia affecting Dedrick e 2024 9:06am Chief Complaint Admit Date 15 wk OB July 14, 2024 1:2 0pm 19wk ob August 09, 2024 2:55 pm 23 wk ob September 06, 2024 2:08pm INT LAB ORDERS October 02, 2024 1:54p m 27 WK OB/GLUCOSE October 02, 2024 2:10p m Possible Prolapse 26w6d per MH October 04, 2024 10:31am THROMBOCYTOPENIA October 17, 2024 9:06 am MED ONC October 17, 2024 10:1 8am 30wk ob, pessary fitting. October 23 2:49pm Reason for Visit Admit Date History of chorioamnionitis July 14, 2024 1:20pm Hx of delivery by vacuum extraction, cur rently July 14, 2024 1:20pm Hx of delivery, currently pregna nt July 14, 2024 1:20pm July 14, 2024 1:2 0pm Supervision of high-risk July 14, 2024 1:20pm History of chorioamnionitis August 09, 2 025 2:55pm Hx of delivery by vacuum extraction, cur rently August 09, 2024 2:55pm Hx of delivery, currently pregna nt August 09, 2024 2:55pm August 09, 2024 2:55 pm Supervision of high-risk August 09, 2024 2:55pm History of chorioamnionitis September 06 2:08pm Hx of delivery by vacuum extraction, cur rently September 06, 2024 2:08pm Hx of delivery, currently pregna nt September 06, 2024 2:08pm September 06, 2024 2:08pm Supervision of high-risk September 062024 2:08pm History of chorioamnionitis October 02 2:10pm Hx of delivery by vacuum extraction, cur rently October 02, 2024 2:10pm Hx of delivery, currently pregna nt October 02, 2024 2:10pm October 02, 2024 2:10p m Supervision of high-risk October 02, 2024 2:10pm Cystocele with incomplete uterovaginal p rolapse October 04, 2024 10:31am History of chorioamnionitis October 04 10:31am Hx of delivery by vacuum extraction, cur rently October 04, 2024 10:31am Hx of delivery, currently pregna nt October 04, 2024 10:31am October 04, 2024 10:31 am Supervision of high-risk October 04, 2024 10:31am UTI in October 04, 2024 10:31 am Thrombocytopenia affecting Oct 10:31am Nasal septum ulceration October 17, 2024 9:06am Thrombocytopenia affecting Dedrick 2024 9:06am Cystocele with incomplete uterovaginal p rolapse October 23, 2024 2:49pm History of chorioamnionitis October 23, 2 025 2:49pm Hx of delivery by vacuum extraction, cur rently October 23, 2024 2:49pm Hx of delivery, currently pregna nt October 23, 2024 2:49pm Nasal septum ulceration October 23, 2024 2:49pm October 23, 2024 2:49 pm Supervision of high-risk October 23, 2024 2:49pm UTI in October 23, 2024 2:49 pm Thrombocytopenia affecting Dedrick e 2024 2:49pm Chief Complaint Admit Date 15 wk OB July 14, 2024 1:2 0pm 19wk ob August 09, 2024 2:55 pm 23 wk ob September 06, 2024 2:08pm INT LAB ORDERS October 02, 2024 1:54p m 27 WK OB/GLUCOSE October 02, 2024 2:10p m Possible Prolapse 26w6d per MH October 04, 2024 10:31am THROMBOCYTOPENIA October 17, 2024 9:06 am MED ONC October 17, 2024 10:1 8am 30wk ob, pessary fitting. October 23 2:49pm 32 wk ob November 08, 2024 3:37p m Reason for Visit Admit Date History of chorioamnionitis July 14, 2024 1:20pm Hx of delivery by vacuum extraction, cur rently July 14, 2024 1:20pm Hx of delivery, currently pregna nt July 14, 2024 1:20pm July 14, 2024 1:2 0pm Supervision of high-risk July 14, 2024 1:20pm History of chorioamnionitis August 09, 2 025 2:55pm Hx of delivery by vacuum extraction, cur rently August 09, 2024 2:55pm Hx of delivery, currently pregna nt August 09, 2024 2:55pm August 09, 2024 2:55 pm Supervision of high-risk August 09, 2024 2:55pm History of chorioamnionitis September 06 2:08pm Hx of delivery by vacuum extraction, cur rently September 06, 2024 2:08pm Hx of delivery, currently pregna nt September 06, 2024 2:08pm September 06, 2024 2:08pm Supervision of high-risk September 062024 2:08pm History of chorioamnionitis October 02 2:10pm Hx of delivery by vacuum extraction, cur rently October 02, 2024 2:10pm Hx of delivery, currently pregna nt October 02, 2024 2:10pm October 02, 2024 2:10p m Supervision of high-risk October 02, 2024 2:10pm Cystocele with incomplete uterovaginal p rolapse October 04, 2024 10:31am History of chorioamnionitis October 04 10:31am Hx of delivery by vacuum extraction, cur rently October 04, 2024 10:31am Hx of delivery, currently pregna nt October 04, 2024 10:31am October 04, 2024 10:31 am Supervision of high-risk October 04, 2024 10:31am UTI in October 04, 2024 10:31 am Thrombocytopenia affecting Oct 10:31am Nasal septum ulceration October 17, 2024 9:06am Thrombocytopenia affecting Oct 9:06am Cystocele with incomplete uterovaginal p rolapse October 23, 2024 2:49pm History of chorioamnionitis October 23 2:49pm Hx of delivery by vacuum extraction, cur rently October 23, 2024 2:49pm Hx of delivery, currently pregna nt October 23, 2024 2:49pm Nasal septum ulceration October 23, 2024 2:49pm October 23, 2024 2:49 pm Supervision of high-risk October 23, 2024 2:49pm UTI in October 23, 2024 2:49 pm Thrombocytopenia affecting Oct 2:49pm Cystocele with incomplete uterovaginal p rolapse November 08, 2024 3:37pm History of chorioamnionitis November 08 3:37pm Hx of delivery by vacuum extraction, cur rently November 08, 2024 3:37pm Hx of delivery, currently pregna nt November 08, 2024 3:37pm Nasal septum ulceration November 08, 2024 3 :37pm November 08, 2024 3:37p m Supervision of high-risk November 08, 2024 3:37pm UTI in November 08, 2024 3:37p m Thrombocytopenia affecting Oct 3:37pm Chief Complaint Admit Date 19wk ob August 09, 2024 2:55 pm 23 wk ob September 06, 2024 2:08pm INT LAB ORDERS October 02, 2024 1:54p m 27 WK OB/GLUCOSE October 02, 2024 2:10p m Possible Prolapse 26w6d per MH October 04, 2024 10:31am THROMBOCYTOPENIA October 17, 2024 9:06 am MED ONC October 17, 2024 10:1 8am 30wk ob, pessary fitting. October 23 2:49pm 32 wk ob November 08, 2024 3:37p m BLEEDING November 21, 2024 7:55 am Reason for Visit Admit Date History of chorioamnionitis August 09, 2 025 2:55pm Hx of delivery by vacuum extraction, cur rently August 09, 2024 2:55pm Hx of delivery, currently pregna nt August 09, 2024 2:55pm August 09, 2024 2:55 pm Supervision of high-risk August 09, 2024 2:55pm History of chorioamnionitis September 06 2:08pm Hx of delivery by vacuum extraction, cur rently September 06, 2024 2:08pm Hx of delivery, currently pregna nt September 06, 2024 2:08pm September 06, 2024 2:08pm Supervision of high-risk September 062024 2:08pm History of chorioamnionitis October 02 2:10pm Hx of delivery by vacuum extraction, cur rently October 02, 2024 2:10pm Hx of delivery, currently pregna nt October 02, 2024 2:10pm October 02, 2024 2:10p m Supervision of high-risk October 02, 2024 2:10pm Cystocele with incomplete uterovaginal p rolapse October 04, 2024 10:31am History of chorioamnionitis October 04 10:31am Hx of delivery by vacuum extraction, cur rently October 04, 2024 10:31am Hx of delivery, currently pregna nt October 04, 2024 10:31am October 04, 2024 10:31 am Supervision of high-risk October 04, 2024 10:31am UTI in October 04, 2024 10:31 am Thrombocytopenia affecting Oct 10:31am Nasal septum ulceration October 17, 2024 9:06am Thrombocytopenia affecting Oct 9:06am Cystocele with incomplete uterovaginal p rolapse October 23, 2024 2:49pm History of chorioamnionitis October 23, 025 2:49pm Hx of delivery by vacuum extraction, cur rently October 23, 2024 2:49pm Hx of delivery, currently pregna nt October 23, 2024 2:49pm Nasal septum ulceration October 23, 2024 2:49pm October 23, 2024 2:49 pm Supervision of high-risk October 23, 2024 2:49pm UTI in October 23, 2024 2:49 pm Thrombocytopenia affecting Oct 2:49pm Cystocele with incomplete uterovaginal p rolapse November 08, 2024 3:37pm History of chorioamnionitis November 08 3:37pm Hx of delivery by vacuum extraction, cur rently November 08, 2024 3:37pm Hx of delivery, currently pregna nt November 08, 2024 3:37pm November 08, 2024 3:37p m Supervision of high-risk November 08, 2024 3:37pm UTI in November 08, 2024 3:37p m Thrombocytopenia affecting Oct 3:37pm Chief Complaint Admit Date 19wk ob August 09, 2024 2:55 pm 23 wk ob September 06, 2024 2:08pm INT LAB ORDERS October 02, 2024 1:54p m 27 WK OB/GLUCOSE October 02, 2024 2:10p m Possible Prolapse 26w6d per MH October 04, 2024 10:31am THROMBOCYTOPENIA October 17, 2024 9:06 am MED ONC October 17, 2024 10:1 8am 30wk ob, pessary fitting. October 23 2:49pm 32 wk ob November 08, 2024 3:37p m BLEEDING November 21, 2024 7:55 am BLEEDING November 21, 2024 9:52 am 34 wk ob November 23, 2024 3:15 pm Reason for Visit Admit Date History of chorioamnionitis August 09, 2 025 2:55pm Hx of delivery by vacuum extraction, cur rently August 09, 2024 2:55pm Hx of delivery, currently pregna nt August 09, 2024 2:55pm August 09, 2024 2:55 pm Supervision of high-risk August 09, 2024 2:55pm History of chorioamnionitis September 06 2:08pm Hx of delivery by vacuum extraction, cur rently September 06, 2024 2:08pm Hx of delivery, currently pregna nt September 06, 2024 2:08pm September 06, 2024 2:08pm Supervision of high-risk September 062024 2:08pm History of chorioamnionitis October 02 2:10pm Hx of delivery by vacuum extraction, cur rently October 02, 2024 2:10pm Hx of delivery, currently pregna nt October 02, 2024 2:10pm October 02, 2024 2:10p m Supervision of high-risk October 02, 2024 2:10pm Cystocele with incomplete uterovaginal p rolapse October 04, 2024 10:31am History of chorioamnionitis October 04 10:31am Hx of delivery by vacuum extraction, cur rently October 04, 2024 10:31am Hx of delivery, currently pregna nt October 04, 2024 10:31am October 04, 2024 10:31 am Supervision of high-risk October 04, 2024 10:31am UTI in October 04, 2024 10:31 am Thrombocytopenia affecting Oct 10:31am Nasal septum ulceration October 17, 2024 9:06am Thrombocytopenia affecting Dedrick e 2024 9:06am Cystocele with incomplete uterovaginal p rolapse October 23, 2024 2:49pm History of chorioamnionitis October 23, 025 2:49pm Hx of delivery by vacuum extraction, cur rently October 23, 2024 2:49pm Hx of delivery, currently pregna nt October 23, 2024 2:49pm Nasal septum ulceration October 23, 2024 2:49pm October 23, 2024 2:49 pm Supervision of high-risk October 23, 2024 2:49pm UTI in October 23, 2024 2:49 pm Thrombocytopenia affecting Dedrick e 2024 2:49pm Cystocele with incomplete uterovaginal p rolapse November 08, 2024 3:37pm History of chorioamnionitis November 08 3:37pm Hx of delivery by vacuum extraction, cur rently November 08, 2024 3:37pm Hx of delivery, currently pregna nt November 08, 2024 3:37pm November 08, 2024 3:37p m Supervision of high-risk November 08, 2024 3:37pm UTI in November 08, 2024 3:37p m Thrombocytopenia affecting Oct 3:37pm Cystocele with incomplete uterovaginal p rolapse November 23, 2024 3:15pm History of chorioamnionitis November 23, 025 3:15pm Hx of delivery by vacuum extraction, cur rently November 23, 2024 3:15pm Hx of delivery, currently pregna nt November 23, 2024 3:15pm Nasal septum ulceration November 23, 2024 3:15pm November 23, 2024 3:15 pm Supervision of high-risk November 23, 2024 3:15pm UTI in November 23, 2024 3:15 pm Thrombocytopenia affecting Oct 3:15pm Additional Source Comments INFORMATION SOURCE (unrecogn ized section and content) DATE CREATED AUTHOR 01/17/2018 [facility] DATE CREATED AUTHOR AUTHOR'S ORGANIZ ATION 06/06/2021 [facility] DATE CREATED AUTHOR AUTHOR'S ORGANIZ ATION 12/05/2021 [facility] DATE CREATED AUTHOR AUTHOR'S ORGANIZ ATION 05/20/2022 [facility] DATE CREATED AUTHOR AUTHOR'S ORGANIZ ATION 05/20/2022 [facility] DATE CREATED AUTHOR AUTHOR'S ORGANIZ ATION 05/08/2023 [facility] DATE CREATED AUTHOR AUTHOR'S ORGANIZ ATION 05/27/2024 [facility] DATE CREATED AUTHOR AUTHOR'S ORGANIZ ATION 08/30/2024 [facility] DATE CREATED AUTHOR AUTHOR'S ORGANIZ ATION 11/22/2024 [facility] Care Teams (unrecognized sec tion and content) Electromechanic Relationship Specialty Start Date End Date Tamika Sandhu MD [address] [facility] [place] [address] PCP - General 04/07/22 Electromechanic Relationship Specialty Start Date End Date Tamika Sandhu MD [address] [facility] [place] [address] PCP - General 04/07/22 Tamika Sandhu MD [address] [facility] [place] [address] PCP - [facility] PCP 07/01/22 Electromechanic Relationship Specialty Start Date End Date Tamika Sandhu MD [address] [facility] [place] [address] PCP - General 04/07/22 Tamika Sandhu MD [address] [facility] [place] [address] PCP - [facility] PCP 07/01/22 Electromechanic Relationship Specialty Start Date End Date Tamika Sandhu MD [address] [facility] [place] [address] PCP - General 04/07/22 Tamika Sandhu MD [address] [facility] [place] [address] PCP - [facility] PCP 07/01/22 Electromechanic Relationship Specialty Start Date End Date Tamika Sandhu MD [address] [address] PCP - General 04/07/22 Electromechanic Relationship Specialty Start Date End Date Tamika Sandhu MD [address] [place] [address] PCP - General 04/07/22 Team Status: Active Member Role Status Dates No Primary Care Physician Primary Care Provider Active Team Status: Inactive Member Role Status Dates No Primary Care Physician Primary Care Provider Active Start: June 09, 2024 End: June 09, 2024 No Primary Care Physician Referring Provider Active Start: June 09, 2024 End: June 09, 2024 Dr. Citlalli Cabrera MD Attending Provider Active Start: June 09, 2024 End: June 09, 2024 Team Status: Inactive Member Role Status Dates No Primary Care Physician Primary Care Provider Active Start: June 09, 2024 End: June 09, 2024 Dr. Citlalli Cabrera MD Attending Provider Active Start: June 09, 2024 End: June 09, 2024 Dr. Citlalli Cabrera MD Referring Provider Active Start: June 09, 2024 End: June 09, 2024 Team Status: Inactive Member Role Status Dates No Primary Care Physician Primary Care Provider Active Start: June 13, 2024 End: June 13, 2024 Dr. Citlalli Cabrera MD Attending Provider Active Start: June 13, 2024 End: June 13, 2024 Dr. Citlalli Cabrera MD Referring Provider Active Start: June 13, 2024 End: June 13, 2024 Team Status: Inactive Member Role Status Dates No Primary Care Physician Primary Care Provider Active Start: July 14, 2024 End: July 14, 2024 No Primary Care Physician Referring Provider Active Start: July 14, 2024 End: July 14, 2024 Dr. Rosalba Yang DO Attending Provider Activ e Start: July 14, 2024 End: July 14, 2024 Team Status: Inactive Member Role Status Dates No Primary Care Physician Primary Care Provider Active Start: August 09, 2024 End: August 09, 2024 No Primary Care Physician Referring Provider Active Start: August 09, 2024 End: August 09, 2024 Dr. Citlalli Cabrera MD Attending Provider Active Start: August 09, 2024 End: August 09, 2024 Team Status: Inactive Member Role Status Dates No Primary Care Physician Primary Care Provider Active Start: September 06, 2024 End: September 06, 2024 No Primary Care Physician Referring Provider Active Start: September 06, 2024 End: September 06, 2024 Kamla Zheng NP ACCOUNTING MANAGER-C Attending Provider Active Start: September 06, 2024 End: September 06, 2024 Team Status: Active Member Role Status Dates No Primary Care Physician Primary Care Provider Active Start: October 02, 2024 Dr. Citlalli Cabrera MD Attending Provider Active Start: October 02, 2024 Dr. Citlalli Cabrera MD Referring Provider Active Start: October 02, 2024 Team Status: Inactive Member Role Status Dates No Primary Care Physician Primary Care Provider Active Start: October 02, 2024 End: October 02, 2024 No Primary Care Physician Referring Provider Active Start: October 02, 2024 End: October 02, 2024 Kecia Faye CNM Attending Provider Active S tart: October 02, 2024 End: October 02, 2024 Team Status: Inactive Member Role Status Dates No Primary Care Physician Primary Care Provider Active Start: October 02, 2024 End: October 02, 2024 Dr. Citlalli Cabrera MD Attending Provider Active Start: October 02, 2024 End: October 02, 2024 Dr. Citlalli Cabrera MD Referring Provider Active Start: October 02, 2024 End: October 02, 2024 Team Status: Inactive Member Role Status Dates No Primary Care Physician Primary Care Provider Active Start: October 04, 2024 End: October 04, 2024 No Primary Care Physician Referring Provider Active Start: October 04, 2024 End: October 04, 2024 Kamla Zheng NP ACCOUNTING MANAGER-C Attending Provider Active Start: October 04, 2024 End: October 04, 2024 Team Status: Active Member Role Status Dates No Primary Care Physician Primary Care Provider Active Start: October 04, 2024 Kamla Zheng ACCOUNTING MANAGER, ACCOUNTING MANAGER-C Attending Provider Active Start: October 04, 2024 Kamla Zheng ACCOUNTING MANAGER, ACCOUNTING MANAGER-C Referring Provider Active Start: October 04, 2024 Team Status: Inactive Member Role Status Dates No Primary Care Physician Primary Care Provider Active Start: October 04, 2024 End: October 04, 2024 Kamla Zheng ACCOUNTING MANAGER, ACCOUNTING MANAGER-C Attending Provider Active Start: October 04, 2024 End: October 04, 2024 Kamla Zheng ACCOUNTING MANAGER, ACCOUNTING MANAGER-C Referring Provider Active Start: October 04, 2024 End: October 04, 2024 Team Status: Inactive Member Role Status Dates No Primary Care Physician Primary Care Provider Active Start: October 17, 2024 End: October 17, 2024 Kecia Faye CNM Referring Provider Active S tart: October 17, 2024 End: October 17, 2024 Dr. Samm Colbert MD Attending Provider Active S tart: October 17, 2024 End: October 17, 2024 Team Status: Active Member Role Status Dates No Primary Care Physician Primary Care Provider Active Start: October 17, 2024 Dr. Samm Colbert MD Attending Provider Active S tart: October 17, 2024 Dr. Samm Colbert MD Referring Provider Active S tart: October 17, 2024 Team Status: Inactive Member Role Status Dates No Primary Care Physician Primary Care Provider Active Start: October 23, 2024 End: October 23, 2024 No Primary Care Physician Referring Provider Active Start: October 23, 2024 End: October 23, 2024 Dr. Citlalli Cabrera MD Attending Provider Active Start: October 23, 2024 End: October 23, 2024 Team Status: Active Member Role/Relationship Status Dates No Primary Care Physician Primary Care Provider Active Team Status: Inactive Member Role/Relationship Status Dates No Primary Care Physician Primary Care Provider Active Start: July 14, 2024 End: July 14, 2024 No Primary Care Physician Referring Provider Active Start: July 14, 2024 End: July 14, 2024 Dr. Rosalba Yang DO Attending Provider Activ e Start: July 14, 2024 End: July 14, 2024 Team Status: Inactive Member Role/Relationship Status Dates No Primary Care Physician Primary Care Provider Active Start: August 09, 2024 End: August 09, 2024 No Primary Care Physician Referring Provider Active Start: August 09, 2024 End: August 09, 2024 Dr. Citlalli Cabrera MD Attending Provider Active Start: August 09, 2024 End: August 09, 2024 Team Status: Inactive Member Role/Relationship Status Dates No Primary Care Physician Primary Care Provider Active Start: September 06, 2024 End: September 06, 2024 No Primary Care Physician Referring Provider Active Start: September 06, 2024 End: September 06, 2024 Kamla Zheng ACCOUNTING MANAGER, ACCOUNTING MANAGER-C Attending Provider Active Start: September 06, 2024 End: September 06, 2024 Team Status: Inactive Member Role/Relationship Status Dates No Primary Care Physician Primary Care Provider Active Start: October 02, 2024 End: October 02, 2024 Dr. Citlalli Cabrera MD Attending Provider Active Start: October 02, 2024 End: October 02, 2024 Dr. Citlalli Cabrera MD Referring Provider Active Start: October 02, 2024 End: October 02, 2024 Team Status: Inactive Member Role/Relationship Status Dates No Primary Care Physician Primary Care Provider Active Start: October 02, 2024 End: October 02, 2024 No Primary Care Physician Referring Provider Active Start: October 02, 2024 End: October 02, 2024 Kecia Faye CNM Attending Provider Active S tart: October 02, 2024 End: October 02, 2024 Team Status: Inactive Member Role/Relationship Status Dates No Primary Care Physician Primary Care Provider Active Start: October 04, 2024 End: October 04, 2024 No Primary Care Physician Referring Provider Active Start: October 04, 2024 End: October 04, 2024 Kamla Zheng ACCOUNTING MANAGER, ACCOUNTING MANAGER-C Attending Provider Active Start: October 04, 2024 End: October 04, 2024 Team Status: Inactive Member Role/Relationship Status Dates No Primary Care Physician Primary Care Provider Active Start: October 04, 2024 End: October 04, 2024 Kamla Zheng ACCOUNTING MANAGER, ACCOUNTING MANAGER-C Attending Provider Active Start: October 04, 2024 End: October 04, 2024 Kamla Zheng ACCOUNTING MANAGER, ACCOUNTING MANAGER-C Referring Provider Active Start: October 04, 2024 End: October 04, 2024 Team Status: Inactive Member Role/Relationship Status Dates No Primary Care Physician Primary Care Provider Active Start: October 17, 2024 End: October 17, 2024 Kecia Faye CNM Referring Provider Active S tart: October 17, 2024 End: October 17, 2024 Dr. Samm Colbert MD Attending Provider Active S tart: October 17, 2024 End: October 17, 2024 Team Status: Active Member Role/Relationship Status Dates No Primary Care Physician Primary Care Provider Active Start: October 17, 2024 Dr. Samm Colbert MD Attending Provider Active S tart: October 17, 2024 Dr. Samm Colbert MD Referring Provider Active S tart: October 17, 2024 Team Status: Inactive Member Role/Relationship Status Dates No Primary Care Physician Primary Care Provider Active Start: October 23, 2024 End: October 23, 2024 No Primary Care Physician Referring Provider Active Start: October 23, 2024 End: October 23, 2024 Dr. Citlalli Cabrera MD Attending Provider Active Start: October 23, 2024 End: October 23, 2024 Team Status: Inactive Member Role/Relationship Status Dates No Primary Care Physician Primary Care Provider Active Start: November 08, 2024 End: November 08, 2024 No Primary Care Physician Referring Provider Active Start: November 08, 2024 End: November 08, 2024 Kamla Zheng ACCOUNTING MANAGER, ACCOUNTING MANAGER-C Attending Provider Active Start: November 08, 2024 End: November 08, 2024 Team Status: Inactive Member Role/Relationship Status Dates No Primary Care Physician Primary Care Provider Active Start: August 09, 2024 End: August 09, 2024 No Primary Care Physician Referring Provider Active Start: August 09, 2024 End: August 09, 2024 Dr. Citlalli Cabrera MD Attending Provider Active Start: August 09, 2024 End: August 09, 2024 Team Status: Inactive Member Role/Relationship Status Dates No Primary Care Physician Primary Care Provider Active Start: September 06, 2024 End: September 06, 2024 No Primary Care Physician Referring Provider Active Start: September 06, 2024 End: September 06, 2024 Kamla Zheng ACCOUNTING MANAGER, ACCOUNTING MANAGER-C Attending Provider Active Start: September 06, 2024 End: September 06, 2024 Team Status: Inactive Member Role/Relationship Status Dates No Primary Care Physician Primary Care Provider Active Start: October 02, 2024 End: October 02, 2024 Dr. Citlalli Cabrera MD Attending Provider Active Start: October 02, 2024 End: October 02, 2024 Dr. Citlalli Cabrera MD Referring Provider Active Start: October 02, 2024 End: October 02, 2024 Team Status: Inactive Member Role/Relationship Status Dates No Primary Care Physician Primary Care Provider Active Start: October 02, 2024 End: October 02, 2024 No Primary Care Physician Referring Provider Active Start: October 02, 2024 End: October 02, 2024 Kecia Faye CNM Attending Provider Active S tart: October 02, 2024 End: October 02, 2024 Team Status: Inactive Member Role/Relationship Status Dates No Primary Care Physician Primary Care Provider Active Start: October 04, 2024 End: October 04, 2024 No Primary Care Physician Referring Provider Active Start: October 04, 2024 End: October 04, 2024 Kamla Zheng ACCOUNTING MANAGER, ACCOUNTING MANAGER-C Attending Provider Active Start: October 04, 2024 End: October 04, 2024 Team Status: Inactive Member Role/Relationship Status Dates No Primary Care Physician Primary Care Provider Active Start: October 04, 2024 End: October 04, 2024 Kamla Zheng ACCOUNTING MANAGER, ACCOUNTING MANAGER-C Attending Provider Active Start: October 04, 2024 End: October 04, 2024 Kamla Zheng ACCOUNTING MANAGER, ACCOUNTING MANAGER-C Referring Provider Active Start: October 04, 2024 End: October 04, 2024 Team Status: Inactive Member Role/Relationship Status Dates No Primary Care Physician Primary Care Provider Active Start: October 17, 2024 End: October 17, 2024 Kecia Faye CNM Referring Provider Active S tart: October 17, 2024 End: October 17, 2024 Dr. Samm Colbert MD Attending Provider Active S tart: October 17, 2024 End: October 17, 2024 Team Status: Active Member Role/Relationship Status Dates No Primary Care Physician Primary Care Provider Active Start: October 17, 2024 Dr. Samm Colbert MD Attending Provider Active S tart: October 17, 2024 Dr. Samm Colbert MD Referring Provider Active S tart: October 17, 2024 Team Status: Inactive Member Role/Relationship Status Dates No Primary Care Physician Primary Care Provider Active Start: October 23, 2024 End: October 23, 2024 No Primary Care Physician Referring Provider Active Start: October 23, 2024 End: October 23, 2024 Dr. Citlalli Cabrera MD Attending Provider Active Start: October 23, 2024 End: October 23, 2024 Team Status: Inactive Member Role/Relationship Status Dates No Primary Care Physician Primary Care Provider Active Start: November 08, 2024 End: November 08, 2024 No Primary Care Physician Referring Provider Active Start: November 08, 2024 End: November 08, 2024 Kamla Zheng ACCOUNTING MANAGER, ACCOUNTING MANAGER-C Attending Provider Active Start: November 08, 2024 End: November 08, 2024 Team Status: Inactive Member Role/Relationship Status Dates No Primary Care Physician Primary Care Provider Active Start: November 21, 2024 End: November 21, 2024 Dr. Citlalli Cabrera MD Attending Provider Active Start: November 21, 2024 End: November 21, 2024 Dr. Citlalli Cabrera MD Referring Provider Active Start: November 21, 2024 End: November 21, 2024 Team Status: Active Member Role/Relationship Status Dates No Primary Care Physician Primary Care Provider Active Start: November 21, 2024 Dr. Citlalli Cabrera MD Attending Provider Active Start: November 21, 2024 Dr. Citlalli Cabrera MD Referring Provider Active Start: November 21, 2024 Dr. Citlalli Cabrera MD Other Provider Active Start: November 21, 2024 Team Status: Inactive Member Role/Relationship Status Dates No Primary Care Physician Primary Care Provider Active Start: November 23, 2024 End: November 23, 2024 No Primary Care Physician Referring Provider Active Start: November 23, 2024 End: November 23, 2024 Dr. Citlalli Cabrera MD Attending Provider Active Start: November 23, 2024 End: November 23, 2024 Reason for Visit (unrecogniz ed section and content) Reason Comments URI BODY ACHES, HEADACHE S, CHILLS, COUGH X 1 DAY Goals (unrecognized section and content) Goals may be documented in a n alternate sectionGoals may be documented in an alternate sectionGoals may be documented in an alternate sectionGoals may be documented in an alternate sectionGoals may be documented in an alternate sectionGoals may be documented in an alternate sectionGoals may be documented in an alternate sectionGoals may be documented in an alternate sectionGoals may be documented in an alternate section FOR RECORDS PERTAINING TO PATIENTS WHO ARE OR HAVE BEEN ENROLLED IN A CHEMICAL DEPENDENCY/SUBSTANCEABUSE PROGRAM, SOME INFORMATION MAY BE OMITTED. This clinical summary was aggregated from multiple sources. Caution should be exercised in using it in the provision of clinical care. This summary normalizes information from multiple sources, and as a consequence, information in this document may materially change the coding, format and clinical context of patient data. In addition, data may be omitted in some cases. CLINICAL DECISIONS SHOULD BE BASED ON THE PRIMARY CLINICAL RECORDS. [facility]. provides no warranty or guarantee of the accuracy or completeness of information in this document.
== END | disposition home or self-care (01) ==
LOC: US 17:04
PROVIDERS: Referring Provider Obstetrics & Gynecology; Visit Provider Obstetrics & Gynecology
DX: Z34.83 Encounter for supervision of other normal pregnancy, third trimester (principal); Z3A.34 34 weeks gestation of pregnancy
CPT/HCPCS: 76816

== ENCOUNTER 2024-11-30 15:45 | Outpatient (CLI) | payer OTHER, SELFPAY ==
[2024-11-30 16:14] VITALS: BMI 21.9
[2024-11-30 16:29] VITALS: BP 102/65; PULSE 88; PULSE 90; O2SAT 98
[2024-11-30 16:34] VITALS: PULSE 90; O2SAT 96
[2024-11-30 16:39] VITALS: PULSE 91; O2SAT 97
[2024-11-30 16:43] VITALS: BP 99/63; PULSE 85; RESP 16; TEMP 36.6
[2024-11-30 16:44] VITALS: PULSE 89; O2SAT 97
[2024-11-30 17:12] LABS: Hematocrit 36.0 % (37-47); Hemoglobin 12.1 g/dL (12.0-15.0); Mean Corp Hgb Conc 33.6 g/dL (32-36); Mean Corpuscular Volume 90.5 fL (81-99); Mean Platelet Vol. 12.5 fl (6.2-12.0); Platelet Count 100 K/mm3 (150-450); RBC Distribution Width CV 12.1 % (11.6-14.6); RBC Distribution Width SD 39.8 fl (35.1-43.9); Red Blood Count 3.98 M/mm3 (4.2-5.4); White Blood Count 12.0 K/mm3 (4.4-11.0)
--- NOTE | 2024-11-30 17:30 | OB.TRI.HP_ITS ---
HPI - General HPI Narrative COOPER CROCKETT, is a 34 F who presents for headache n oblurry vision, took tylenol with minimal effect normal bps no vb lof good fm irregular ctx. Maternal Data Information MARGO Calculator Estimated Delivery Date Method Current WG Current Estimate 01/04/25 LMP (Uncertain) 35w 1d Other Estimates 01/02/25 Ultrasound #1 35w 3d PFSH PFSH Medical History Varicose vein vulva-delivered FH: breast cancer Cystitis during , antepartum False labor Gestational thrombocytopenia 30 weeks gestation of Home Medications ?Medication ?Instructions ?Recorded ?Last Taken ?Type PNV 153-FA 400 mcg-om3 35 mg-dha 1 tab PO DAILY pregna ncy 06/02/24 11/30/24 07:00 History 25 mg-epa 5 mg-fish oil chew tablet 1 TAB cephalexin 500 mg capsule 500 mg PO Q6 7 days #28 caps 11/21/24 Unknown Rx Allergy/AdvReac Type Severity Reaction Status Date / Time No Known Allergies Allergy Verified 11/30/24 16:59 Family History Grandmother Breast cancer, Onset Age: 65 Maternal- mets to liver Grandfather Myocardial infarction, Onset Age: 78 Paternal Surgical History H/O basal cell carcinoma excision History of surgery History of surgery History of surgery Social History adopted: No household members: spouse and children number of children: 2 current occupational status: unemployed current occupation: [employer] pets and animals: Yes pets and animals: dog(s) history of recent travel: No sexually active: Yes Smoking Status: Never smoker alcohol intake: current alcohol intake frequency: a few times a month details: Not while substance use type: does not use well-balanced diet: daily or most days caffeine: Yes Type: coffee Number of servings: 2 eating out: rarely or never during the past year weight has: remained stable what type of physical activity do you participate in: none ramesh/anabaptism: Adventist seatbelt use: always do you feel safe at home: Yes additional social history: 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 Date Name GA/Weeks Outcome Route Bth Weight Gen Labor Lgth Anesthesia Del Locatn Provider FOB 08/24/19 Jose Elyn 36 live - vacuum 6lb 8 oz Female 12 e pidural [facility] Ibis Rush 02/22/21 [place] 38 live - full term 6# 8oz Female epi dural [facility] Nehemias Rush Delivery Date: 08/24/19 Last Updated by: Carlee He MD pprom, labor, chorioamnionitis Delivery Date: 02/22/21 Last Updated by: Patricia Nichols iol, , prolapse(vulvo-vaginal varicosity) at 26 wks and two more times after- no problems since Visit Details Expected Delivery Route/Plan Labor Preferences- CB/BF classes: no labor support person: Victor Manuel labor intervention preferences: [] pain management options preferred: discussed cut cord/dad catch: cord : yes PP control planned: discussed discussed possible routes of delivery and associated risks: [] special requests: [] Plans Covid status: [] Flu vaccine: [] Tdap vaccine: [] Rhogam: [] LARC form signed: [] Problem list reviewed and updated with the most current plan of care details and appropriate orders placed. Relevant counseling for the gestational age provided. Continue routine care and follow up unless otherwise noted in visit notes/problem list details OB Flowsheet Initial Weight: Not Recorded Date -?-?-?-?-?-?-?-?-?-?-?-?- EGA Weight BP Urine Prot -?-?-?-?-?-?-?-?-?-?-?-?- Glucose FHR FuHt Pres Dilation -?-?-?-?-?-?-?-?-?-?-?-?- Effaced St Visit Note 06/09/24 -?-?-?-?-?-?-?-?-?-?-?-?- 10w 1d 121 lb 6 oz 116/80 -?-?-?-?-?-?-?-?-?-?-?-?- 175 -?-?-?-?-?-?-?-?-?-?-?-?- SM- CRL 3.5 cm c ons with LMP 07/14/24 -?-?-?-?-?-?-?-?-?-?-?-?- 15w 1d 126 lb 2 oz 115/75 Nega tive -?-?-?-?-?-?-?-?-?-?-?-?- Negative 164 -?-?-?-?-?--?-?-?-?-?-?-?- JV- has complain t about headaches from sinus congestion which is also secondary to allergies. anatomy ultrasound ordered. 08/09/24 -?-?-?-?-?-?-?-?-?-?-?-?- 18w 6d 130 lb 103/65 Negative -?-?-?-?-?-?-?-?-?-?-?-?- Negative 150 -?-?-?-?-?-?-?-?-?-?-?-?- SM- no vb lof co vulvar discomfort, has had even before 09/06/24 -?-?-?-?-?-?-?-?-?-?-?-?- 22w 6d 134 lb 8 oz 106/70 Nega tive -?-?-?-?-?-?-?-?-?-?-?-?- Negative 153 -?--?-?-?-?-?-?-?-?-?-?-?- MH-No VB, LOF. G oodFM. No concerns 10/02/24 -?-?-?-?-?-?-?-?-?-?-?-?- 26w 4d 139 lb 4 oz 96/65 Nega tive -?-?-?-?-?-?-?-?-?-?-?-?- Negative 155 25 -?-?-?-?-?-?-?-?-?-?-?-?- KW- no vb/crampi ng. good fm. glucose today. support belt for pelvic pain. 10/04/24 -?-?-?-?-?-?-?-?-?-?-?-?- 26w 6d 139 lb 109/70 Negative -?-?-?-?-?-?-?-?-?-?-?-?- Negative 148 0 -?-?-?-?-?-?-?-?-?-?-?-?- MH-No VB, LOF. H as vaginal prolapse/see exam note. 10/23/24 -?-?-?-?-?-?-?-?-?-?-?-?- 29w 4d 144 lb 4 oz 95/60 Nega tive -?-?-?-?-?-?-?-?-?-?-?-?- Negative 140 28 -?-?-?-?-?-?-?-?--?-?-?-?- Sm- no vb lof go od fm no reuglar ctx reviewed platelet counts. reviewed pelvic pressure and reviewed pessary indications 11/08/24 -?-?-?-?-?-?-?-?-?-?-?-?- 31w 6d 143 lb 2 oz 118/64 Nega tive -?-?-?-?-?-?-?-?-?-?-?-?- Negative 146 30 -?-?-?-?-?-?-?-?-?-?-?-?- -No VB, LOF. S ome pubic bone discomfort. Good Fm. 11/23/24 -?-?-?-?-?-?-?-?-?-?-?-?- 34w 0d 145 lb 8 oz 99/64 Nega tive -?-?-?-?-?-?-?-?-?-?-?-?- Negative 150 32 1.5 -?-?-?--?-?-?-?-?-?-?-?-?- SM- [facility] wednesday for contracitons and bleeding, had more brown discharge yesterday morning. Physical Exam Const alert, oriented x3 and no apparent distress HEENT Head and Scalp: normocephalic and atraumatic Eyes EOMs intact bilaterally Neck full ROM and no lymphadenopathy Chest inspection of chest normal Resp normal respiratory effort GI GI Narrative: gravid, abdomen nontender, AGA Neuro no focal motor deficits Motor Exam: clonus absent NST FHR Rate Baby A Baseline: 140 Variability:: Moderate Accelerations:: 15 x 15 Decelerations:: None NST Reactive:: Yes FHR Category:: Category I Uterine Activity:: no regular Assessment & Plan (1) Headache in : (2) Hx of delivery, currently : COMMENT: first 36 wks (3) Cystocele with incomplete uterovaginal prolapse: COMMENT: declines pessary (4) UTI in : QUALIFIERS: Trimester: second trimester Qualified Code(s): O23.42 - Unspecified infection of urinary tract in , second trimester COMMENT: macrobid initially. Culture actinomyces, at 50,000 but will treat with Amoxil X 4 wk and will then need repeat culture. LM for ID to discuss, patient declining ATB tx. (5) Nasal septum ulceration: (6) Thrombocytopenia affecting : COMMENT: Platelet count has been greater than 100K so no intervention needed at this time. She does not meet the criteria for ITP. If Platelets are greater than 80,000, she can get Epidural anesthesia since that is what she wants.. (7) Supervision of high-risk : QUALIFIERS: Trimester: third trimester Qualified Code(s): O09.93 - Supervision of high risk , unspecified, third trimester COMMENT: PRR , MARGO 01/04/25,girl PC Eileen, Ivette Victor Manuel (8) Hx of delivery by vacuum extraction, currently : COMMENT: first (9) : QUALIFIERS: Weeks of gestation: 34 weeks Qualified Code(s): Z3A.34 - 34 weeks gestation of COMMENT: NIPT low risk, f/u anatomy complete & nl. (10) History of chorioamnionitis: COMMENT: first PLAN: Plan 35 weeks exp management labs WNL reviewed medications Charges/Coding Procedures Urinary/Genital [id number]: [id number] non-stress test Interp Multi Select Codes Visit Charges Office Visit/Consults: 96021 OV L3 Est 20min
[2024-11-30 17:38] LABS: Creatinine, Urine (random) 54.00 mg/dL (28.00-217.00); Protein, Urine (Random) 9.0 mg/dL (0.0-12.0); Protein:Creat Ratio 166 mg/g CRE (0-200)
[2024-11-30 17:51] LABS: AST(SGOT) 32 U/L (<=31); Alanine Aminotransfer ALT/SGPT 20 U/L (<=34); Estimated Creatinine Clearance 230.62 ml/min (50-250); Uric Acid 3.3 mg/dL (2.6-6.0)
== END 2024-11-30 18:00 | disposition home or self-care (01) ==
LOC: WPOUT 16:13 → WP 16:13
PROVIDERS: Referring Provider Obstetrics & Gynecology; Visit Provider Obstetrics & Gynecology
DX: O99.891 Other specified diseases and conditions complicating pregnancy (principal); R51.9 Headache, unspecified; Z3A.35 35 weeks gestation of pregnancy; H53.8 Other visual disturbances
CPT/HCPCS: 36415; 59025; 59050; 82565; 82570; 84156; 84450; 84460; 84550; 85027; 99221; G0378

== ENCOUNTER 2024-12-08 11:32 | Inpatient (IN) | payer BC, SELFPAY ==
[2024-12-08] VITALS (64 sets, daily range): BP systolic 92–122; BP diastolic 53–71; PULSE 81–108; RESP 15–20; TEMP 36.2–37.6; O2SAT 95–100; BMI 23.6
--- OUTSIDE RECORDS SUMMARY | 2024-12-08 00:43 | XMS RPT_ITS | CCD ---
Author Organization [facility] Team Providers Care Director Sales Training Name Role Phone No Doctor Assigned, Nodr Unavailable Unavail able Karohl, Jessica Unavailable Unavailable Karohl, Jessica Unavailable Unavailable Marques, PA-C Unavailable Unavailable Marques, PA-C Unavailable Unavailable No Doctor Assigned, Nodr Unavailable Unavail able GARDENIA MCDERMOTT Attending Unavailab celena CARCAMO, PHYSICIAN Primary Care Unavailable Tamika Sandhu Unavailable [phone] Unavailable Unavailable Tamika Sandhu Attending Pk Sandhu, Tamika Levine Primary Care Pk Sandhu, Tamika Levine Referring Pk Sandhu, Tamika Levine Attending Tamika Martinez Primary Care Pk Sandhu, Tamika Levine Referring Pk Larawyjoanna, Tamika Levine Attending Tamika Martinez Primary Care [...] ROSALBA HOSKINS Referring Unavailab le NO PRIMARY CARE, Primary Care Unavailable ROSALBA HOSKINS Referring Unavailab TAMIKA Kellogg Attending Unavailable Care Physician, No Primary Primary Care Provider Unavailable Care Physician, No Primary Referring Provider Un available Dr. Citlalli Cabrera MD Attending Provider Dr. Citlalli Cabrera MD Referring Provider Dr. Rosalba Yang DO Attending Provider Marce [employer] CONTROLS ENGINEER-C, Kamla Attending Provider [phone] Yunier MAYER, Kecia Attending Provider [phone] Marce [employer] CONTROLS ENGINEER-C, Kamla Referring Provider Care Physician, No Primary Primary Care Provider Unavailable Care Physician, No Primary Referring Provider Un available Dr. Citlalli Cabrera MD Attending Provider Dr. Citlalli Cabrera MD Referring Provider [phone] Yunier MAYER, Kecia Referring Provider [phone] Dr. Samm Colbert MD Attending Provider Dr. Samm Colbert MD Referring Provider Care Physician, No Primary Primary Care Provider Unavailable Care Physician, No Primary Referring Provider Un available Dr. Citlalli Cabrera MD Other Provider [phone] Rosalba Yang Attending Unavailabl e Care Physician, No Primary Primary Care Unava ilable Care Physician, No Primary Referring Unava ilable Care Physician, No Primary Referring Unava ilable Care Physician, No Primary Primary Care Unava ilable Kecia Faye Attending Unavailable Citlalli Cabrera Referring Unavailable Care Physician, No Primary Primary Care Unava ilable Citlalli Cabrera Attending Unavailable Care Physician, No Primary Referring Unava ilable Care Physician, No Primary Primary Care Unava ilable Citlalli Cabrera Attending Unavailable Care Physician, No Primary Referring Unava ilable Kamla Zheng Attending Unavailable Care Physician, No Primary Primary Care Unava ilable Care Physician, No Primary Primary Care Unava ilable Marcanthony, Citlalli Referring Unavailable Marcanthony, Citlalli Attending Unavailable Marcanthony, Citlalli Consulting Unavailable Marcanthony, Citlalli Referring Unavailable Care Physician, No Primary Primary Care Unava ilable Marcanthony, Citlalli Attending Unavailable Marcanthony, Citlalli Consulting Unavailable Marce, Kamla Referring Unavailable [place], Kamla Attending Unavailable Care Physician, No Primary Primary Care Unava ilable Marcanthony, Citlalli Referring Unavailable Care Physician, No Primary Primary Care Unava ilable Marcanthony, Citlalli Attending Unavailable Marcanthony, Citlalli Referring Unavailable Care Physician, No Primary Primary Care Unava ilable Marcanthony, Citlalli Attending Unavailable Care Physician, No Primary Primary Care Unava ilable Marcanthony, Citlalli Attending Unavailable Care Physician, No Primary Referring Unava ilable Marcanthony, Citlalli Referring Unavailable Care Physician, No Primary Primary Care Unava ilable Marcanthony, Citlalli Attending Unavailable Marcanthony, Citlalli Referring Unavailable Care Physician, No Primary Primary Care Unava ilable Marcanthony, Citlalli Attending Unavailable Marcanthony, Citlalli Referring Unavailable Care Physician, No Primary Primary Care Unava ilable Marcanthony, Citlalli Attending Unavailable Care Physician, No Primary Primary Care Unava ilable Prah, Samm Referring Unavailable Prah, Samm Attending Unavailable Care Physician, No Primary Referring Unava ilable [place], Kamla Attending Unavailable Care Physician, No Primary Primary Care Unava ilable Care Physician, No Primary Primary Care Unava ilable Prah, Samm Attending Unavailable Kecia Faye Referring Unavailable Care Physician, No Primary Referring Unava ilable Care Physician, No Primary Primary Care Unava ilable Marcanthony, Citlalli Attending Unavailable OskaloosaKamla Attending Unavailable Care Physician, No Primary Referring Unava ilable Care Physician, No Primary Primary Care Unava ilable Care Physician, No Primary Referring Unava ilable Marcanthony, Citlalli Attending Unavailable Care Physician, No Primary Primary Care Unava ilable Medications Current Medications Medication Drug Class(es) Dates [...] (Therapy completed) cephalexin 500 mg oral capsule (3 sources) Cephalosporin Antibacterial Start: 11-21-2024 take 1 capsule [...] Start: 04-21-2022 take 1 capsule by [facility] once daily Vyvanse 30 MG Oral [...] 10 capsule 0 05/07/2023 05/12/2023 Active Pnv No.581-Fs-Zj6-Dha- Epa-Fish 400 mcg-35 mg- 25 mg-5 mg tablet,chewable (11 sources) Start: 06-02-2024 Pnv No.385-Aa-On3-Dha- Epa-Fish 400 mcg-35 mg- 25 mg-5 mg tablet,chewable Active 1 {tbl} PO DAILY June 02, 2024 1:00am Start: 06-02-2024 Pnv No.153-Fa- Td0-Hwb-Mfe-Fish 400 mcg-35 mg- 25 mg-5 mg tablet,chewable [...] Sig (Original) amoxicillin 500 mg oral tablet (8 sources) Penicillin-class Antibacterial Start: 10-11-2024 End: 11-08-2024 [...] / nitrofurantoin, monohydrate 75 mg oral capsule (10 sources) Nitrofuran Antibacterial Start: 10-04-2024 End: 10-11-2024 take 1 capsule by mouth twice daily at mealtime Nitrofurantoin Monohyd/M-Cryst (Macrobid) 100 mg capsule Discontinued 100 mg PO TWICE A DAY 14 7 0 October 04, 2024 12:00am October 10, 2024 12:00am October 11, 2024 12:08am must administer with a meal/food ondansetron 4 mg oral tablet (15 sources) Serotonin-3 Receptor Antagonist Start: 06-02-2024 End: [...] 10 tablet 05/07/2023 03/28/2024 Discontinued (Therapy completed) Vit,Kasv83-Drmm-Pytbd 1 TABLET tablet (11 sources) Start: 08-24-2019 End: 06-02-2024 take 1 tablet by mouth once daily Vit,Psjn88-Nifj-Xksyt 1 TABLET tablet Discontinued 1 {tbl} PO DAILY August 24, 2019 12:00am June 02, 2024 10:17am Check with primary doctor Start: 08-24-2019 End: 06-02-2024 take 1 tablet by mouth once daily Vit,Vbus80-Iqda-Gwrrb 1 TABLET tablet Discontinued 1 {tbl} PO [...] aureus] Episodic Comment on above: Rt leg, 2006; Coagulation and hemorrhagic disorders (2 sources) Thrombocytopenia, unspecified; Translations: [Thrombocytopenia, unspecified] Onset: 12-01-2024 Chronic Disorders usually diagnosed in infancy, childhood, or adolescence (15 sources) Attention deficit hyperactivity disorder, predominantly inattentive type; Translations: [Attention deficit disorder without mention of hyperactivity] Onset: 09-01-2022 09-01-2022 Chronic Headache; including migraine (2 sources) Headache; including migraine; Translations: [Headache, unspecified] Onset: 12-01-2024 Hemorrhage during ; abruptio placenta; placenta previa (2 sources) Hemorrhage in early , unspecified; Translations: [Antepartum hemorrhage, unspecified, unspecified trimester] Onset: 11-23-2024 Episodic Influenza (3 sources) Influenza; Translations: [Influenza due to unidentified influenza virus with other respiratory manifestations] Onset: 05-07-2023 05-07-2023 Episodic Other complications of (20 sources) High risk ; Translations: [Supervision of high risk , unspecified, unspecified trimester] 09-06-2024 Episodic Comment on above: PRR , MARGO 01/04/25 ,girl PC [place], [place] Victor Manuel Other complications of (20 sources) [...] Episodic Comment on above: culture pending, amelia mauro sent macrobid initially. Culture actinomyces, at 50,000 [...] is what she wants.. Other complications of (2 sources) Headache; Translations: [Other specified related conditions, unspecified trimester] 11-30-2024 Episodic Other complications of (2 sources) Other specified related conditions, unspecified trimester; Translations: [Other specified related conditions, unspecified trimester] Onset: 12-01-2024 Episodic Other complications of (2 sources) Supervision of other high risk pregnancies, unspecified trimester; Translations: [Supervision of other high risk pregnancies, unspecified trimester] Onset: 12-01-2024 Episodic Other complications of (2 sources) Unspecified infection of urinary tract in , second trimester; Translations: [Unspecified infection of urinary tract in , second trimester] Onset: 12-01-2024 Episodic Other complications of (2 sources) Other diseases of the blood and blood-forming organs and certain disorders involving the immune mechanism complicating , unspecified trimester; Translations: [Other diseases of the blood and blood-forming organs and certain disorders involving the immune mechanism complicating , unspecified trimester] Onset: 12-01-2024 Episodic Other complications of (2 sources) Supervision of high risk , unspecified, third trimester; Translations: [Supervision of high risk , unspecified, third trimester] Onset: 12-01-2024 Episodic Other complications of (2 sources) Supervision of with other poor reproductive or obstetric history, unspecified trimester; Translations: [Supervision of with other poor reproductive or obstetric history, unspecified trimester] Onset: 12-01-2024 Episodic Other complications of (1 source) Uterine size-date discrepancy, unspecified trimester; Translations: [Uterine size-date discrepancy, unspecified trimester] Onset: 11-23-2024 Episodic Other complications of (1 source) Supervision of high risk , unspecified, second trimester; Translations: [Supervision of high risk , unspecified, second trimester] Onset: 10-05-2024 Episodic Other and delivery including normal (20 sources) Vaginal delivery; Translations: [Encounter for full-term uncomplicated delivery] Onset: 06-28-2024 12-18-2020 Episodic Comment on above: NIPT low risk, f/u a natomy complete & nl. Other upper respiratory disease (20 sources) Ulcer of nasal septum; Translations: [Abscess, furuncle and carbuncle of nose] 10-17-2024 Episodic Other upper respiratory disease (2 sources) Abscess, furuncle and carbuncle of nose; Translations: [Abscess, furuncle and carbuncle of nose] Onset: 12-01-2024 Episodic Polyhydramnios and other problems of amniotic cavity (11 sources) Spontaneous rupture of membranes 12-18-2020 Episodic Prolapse of female genital organs (20 sources) Cystocele co-occurrent with incomplete uterovaginal prolapse; Translations: [Incomplete uterovaginal prolapse] Onset: 12-01-2024 10-04-2024 Chronic Comment on above: declines pessary Residual codes; unclassified (11 sources) Gestation period, 36 weeks; Translations: [36 weeks gestation of ] 12-18-2020 Episodic Residual codes; unclassified (20 sources) H/O: ; Translations: [Personal history of other complications of , childbirth and the puerperium] 06-02-2024 Episodic Comment on above: first Residual codes; unclassified (2 sources) 34 weeks gestation of ; Translations: [34 weeks gestation of ] Onset: 12-01-2024 Episodic Residual codes; unclassified (2 sources) Personal history of other complications of , childbirth and the puerperium; Translations: [Personal history of other complications of , childbirth and the puerperium] Onset: 12-01-2024 Episodic Residual codes; unclassified (1 source) 26 [...] Test Name Value Interpretation Reference Range Facility AST(SGOT)on 11-30-2024 AST [Catalytic activity/Vol] 32 U/L Normal <=31 [facility] Comment on above: Performed By: #### L 100.0500, L501.1400, L501.4405, L501.0900, L501.1105, L501.4100 #### [facility] [address] [place], [address] Alanine Aminotransferas (SGP T)on 11-30-2024 ALT [Catalytic activity/Vol] 20 U/L Normal <=34 [facility] Comment on above: Performed By: #### L 501.0250, L509.8002, BTS, L3890.6006, L100.0100 #### [facility] [address] [place], [address] CBC-Complete Blood Cnt No Di ffon 11-30-2024 Erythrocyte distribution width (RBC) [Ratio] 12.1 % Normal 11.6-14.6 [facility] Comment on above: Performed By: #### L 100.0500, L501.1400, L501.4405, L501.0900, L501.1105, L501.4100 #### [facility] [address] [place], [address] Hematocrit (Bld) [Volume fraction] 36.0 % Low 37-47 [facility] Comment on above: Performed By: #### L 100.0500, L501.1400, L501.4405, L501.0900, L501.1105, L501.4100 #### [facility] [address] [place], [address] Hemoglobin (Bld) [Mass/Vol] 12.1 g/dL Normal 12.0-15.0 [facility] Comment on above: Performed By: #### L 100.0500, L501.1400, L501.4405, L501.0900, L501.1105, L501.4100 #### [facility] [address] [place], [address] MCH (RBC) [Entitic mass] 30.4 pg Normal 27.0-32.0 [facility] Comment on above: Performed By: #### L 100.0500, L501.1400, L501.4405, L501.0900, L501.1105, L501.4100 #### [facility] [address] [place], [address] MCHC (RBC) [Mass/Vol] 33.6 g/dL Normal 32-36 [facility] Comment on above: Performed By: #### L 100.0500, L501.1400, L501.4405, L501.0900, L501.1105, L501.4100 #### [facility] [address] [place], [address] MCV (RBC) [Entitic vol] 90.5 fL Normal 81-99 [facility] Comment on above: Performed By: #### L 100.0500, L501.1400, L501.4405, L501.0900, L501.1105, L501.4100 #### [facility] [address] [place], [address] Platelet mean volume (Bld) [Entitic vol] 12.5 fL High 6.2-12.0 [facility] Comment on above: Performed By: #### L 100.0500, L501.1400, L501.4405, L501.0900, L501.1105, L501.4100 #### [facility] [address] [place], [address] Platelets (Bld) [#/Vol] 100 10*3/uL Low 150-450 [facility] Comment on above: Performed By: #### L 100.0500, L501.1400, L501.4405, L501.0900, L501.1105, L501.4100 #### [facility] [address] [place], [address] RBC (Bld) [#/Vol] 3.98 10*6/uL Low 4.2-5.4 [facility] Comment on above: Performed By: #### L 100.0500, L501.1400, L501.4405, L501.0900, L501.1105, L501.4100 #### [facility] [address] [place], [address] RDW SD 39.8 fl Normal 35.1-43.9 [facility] Comment on above: Performed By: #### L 100.0500, L501.1400, L501.4405, L501.0900, L501.1105, L501.4100 #### [facility] [address] [place], [address] WBC (Bld) [#/Vol] 12.0 10*3/uL High 4.4-11.0 [facility] Comment on above: Performed By: #### L 100.0500, L501.1400, L501.4405, L501.0900, L501.1105, L501.4100 #### [facility] [address] [place], [address] Erythrocyte distribution wid th ratioOrdered By: Citlalli Cabrera on 11-30-2024 Erythrocyte distribution width (RBC) [Ratio] 12.1 % 11.6-14.6 [facility] Erythrocyte distribution wid th standard deviationOrdered By: Citlalli Cabrera on 11-30-2024 Erythrocyte distribution width (RBC) [Ratio] 39.8 fl 35.1-43.9 [facility] Glomerular filtration rate ( GFR) estimation/1.73 sq m using serum, plasma, or whole bOrdered By: Citlalli Cabrera on 11-30-2024 GFR/1.73 sq M.predicted among non-blacks MDRD (S/P/Bld) [Vol rate/Area] 139 mL/min/{1.73_m2} >60 [facility] Comment on above: mL/min/1.73m2 CKD-EP I Creatinine Equation (2020) Hematocrit Auto (Bld) [Volum e fraction]Ordered By: Citlalli Cabrera on 11-30-2024 Hematocrit (Bld) [Volume fraction] 36.0 % Low 37-47 [facility] Hemoglobin measurementOrdere d By: Citlalli Cabrera on 11-30-2024 Hemoglobin (Bld) [Mass/Vol] 12.1 g/dL 12.0-15.0 [facility] - Chemistry and C hemistry - challengeOrdered By: Citlalli Cabrera on 11-30-2024 AST [Catalytic activity/Vol] 32 U/L <32 [facility] MCV (mean corpuscular volume ) determinationOrdered By: Citlalli Cabrera on 11-30-2024 MCV (RBC) [Entitic vol] 90.5 fL 81-99 [facility] Mean corpuscular hemoglobin (MCH) determinationOrdered By: Citlalli Cabrera on 11-30-2024 MCH (RBC) [Entitic mass] 30.4 pg 27.0-32.0 [facility] Mean corpuscular hemoglobin concentration (MCHC) determinationOrdered By: Citlalli Cabrera on 11-30-2024 MCHC (RBC) [Mass/Vol] 33.6 g/dL 32-36 [facility] Mean platelet volume determi nationOrdered By: Citlalli Cabrera on 11-30-2024 Platelet mean volume (Bld) [Entitic vol] 12.5 fL High 6.2-12.0 [facility] OB Triage Physician Noteon 0 11-30-2024 OB Triage Physician Note [facility] Medical Records Department [address] [place] [address] OB Triage Physician Note 11/30/24 1730 MR#: [id number] Acct: [id number] Name: MARIBEL CROCKETT Rep #: [id number] : 1990 34 From: Citlalli Cabrera MD PCP: Care Physician,No Primary Status:DEP CLI Y Location: [facility] HPI - General HPI Narrative MARIBEL CROCKETT, is a 34 F who presents for headache n oblurry vision, took tylenol with minimal effect normal bps no vb lof good fm irregular ctx. Maternal Data Information MARGO Calculator Estimated Delivery Date Method Current WG Current Estimate 01/04/25 LMP (Uncertain) 35w 1d Other Estimates 01/02/25 Ultrasound #1 35w 3d PFSH PFSH Medical History Varicose vein vulva-delivered FH: breast cancer Cystitis during , antepartum False labor Gestational thrombocytopenia 30 weeks gestation of Home Medications ???Medication ???Instructions ???Recorded ???Last Taken ???Type PNV 153-FA 400 mcg-om3 35 mg-dha 1 tab PO DAILY 06/02/24 11/30/24 07:00 History 25 mg-epa 5 mg-fish oil chew tablet 1 TAB cephalexin 500 mg capsule 500 mg PO Q6 7 days #28 caps 11/21 Unknown Rx Allergy/AdvReac Type Severity Reaction Status Date / Time No Known Allergies Allergy Verified 11/30/24 16:59 Family History Grandmother Breast cancer, Onset Age: 65 Maternal- mets to liver Grandfather Myocardial infarction, Onset Age: 78 Paternal Surgical History H/O basal cell carcinoma excision History of surgery History of surgery History of surgery Social History adopted: No household members: spouse and children number of children: 2 current occupational status: unemployed current occupation: [employer] pets and animals: Yes pets and animals: [...] physical activity do you participate in: none ramesh/mormon: Yarsanism seatbelt use: always do you feel safe at home: Yes additional social history: 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 History 3 Elective abortions 0 Hx Para [...] epidural [facility] Ho lmes Neri Rush 02/22/21 [place] 39 live - full term 6# 8oz Female epidural [facility] Asamichelle cid Victor Manuel Delivery Date: 08/24/19 Last Updated by: Carlee He MD pprom, labor, chorioamnionitis Delivery Date: 02/22/21 Last Updated by: Patricia Nichols iol, , prolapse(vulvo-vaginal varicosity) at 26 wks and two more times after- no problems since Visit Details Expected Delivery Route/Plan Labor Preferences- CB/BF classes: no labor support person: Victor Manuel labor intervention preferences: [] pain management options preferred: discussed cut cord/dad catch: cord : yes PP control planned: discussed discussed possible routes of delivery and associated risks: [] special requests: [] Plans Covid status: [] Flu vaccine: [] Tdap vaccine: [] Rhogam: [] LARC form signed: [] Problem list reviewed and updated with the most current plan of care details and appropriate orders placed. Relevant counseling for the gestational age provided. Continue routine care and follow up unless otherwise noted in visit notes/problem list details OB Flowsheet Initial Weight: Not Recorded Date -???-???-???-???-???-???- ???-???-???-???-???-???- EGA Weight BP Urine Prot -???-???-???-???-???-???- ???-???-???-???-???-???- Glucose FHR FuHt Pres Dilation -???-???-???-???-???-???- ???-???-???-???-???-???- Effaced St Visit Note 06/09/24 -???-???-???-???-???-???- ???-???-???-???-???-???- 10w 1d 121 lb 6 oz 116/80 -???-???-???-???-???-???- ???-???-???-???-???-???- 175 -???-???-???-???-???-???- ???-???-???-???-???-???- SM- CRL 3.5 cm cons with LMP 07/14/24 -???-???-???-???-???-???- ???-???-???-???-???-???- 15w 1d 126 lb 2 oz 115/75 Negative -???-???-???-???-???-???- ???-???-???-???-???-??? (more content not included)... Normal [facility] Platelet countOrdered By: Khoi Cabrera on 11-30-2024 Platelets (Bld) [#/Vol] 100 10*3/uL Low 150-450 [facility] Protein+Creatinine Ratio,Uri neon 11-30-2024 PROT:CRE RATIO 166 mg/g CRE Normal 0-200 [facility] Comment on above: Performed By: #### L 100.0500, L501.1400, L501.4405, L501.0900, L501.1105, L501.4100 #### [facility] [place], [address] Protein (U) [Mass/Vol] 9.0 mg/dL Normal 0.0-12.0 [facility] Comment on above: Performed By: #### L 100.0500, L501.1400, L501.4405, L501.0900, L501.1105, L501.4100 #### [facility] [address] [place], [address] UR CREAT 54.00 mg/dL Normal 28.00-217.00 [facility] Comment on above: Performed By: #### L 100.0500, L501.1400, L501.4405, L501.0900, L501.1105, L501.4100 #### [facility] [address] [place], [address] RBC Auto (Bld) [#/Vol]Ordere d By: Citlalli Cabrera on 11-30-2024 RBC (Bld) [#/Vol] 3.98 10*6/uL Low 4.2-5.4 [facility] Random urine creatinine kourtney urement (mass/volume)Ordered By: Citlalli Cabrera on 11-30-2024 Creatinine Unsp time (U) [Mass/Vol] 54.00 mg/dL 28.00-217.00 [facility] Serum Creatinine AND GFRon 0 11-30-2024 Creatinine [Mass/Vol] 0.35 mg/dL Low 0.70-1.20 [facility] Comment on above: Performed By: #### L 100.0500, L501.1400, L501.4405, L501.0900, L501.1105, L501.4100 #### [facility] [address] [place], [address] ECRCL 230.62 ml/min Normal 50-250 [facility] Comment on above: Performed By: #### L 100.0500, L501.1400, L501.4405, L501.0900, L501.1105, L501.4100 #### [facility] [address] [place], [address] GFR/1.73 sq M.predicted among non-blacks MDRD (S/P/Bld) [Vol rate/Area] 139 mL/min/{1.73_m2} Normal >60 [facility] Comment on above: Result Comment: mL/m in/1.73m2 CKD-EPI Creatinine Equation (2020) Performed By: #### L 100.0500, L501.1400, L501.4405, L501.0900, L501.1105, L501.4100 #### [facility] [address] [place], [address] Serum creatinine measurement (mass/volume)Ordered By: Citlalli Cabrera on 11-30-2024 Creatinine [Mass/Vol] 0.35 mg/dL Low 0.70-1.20 [facility] Serum or plasma alanine elizondo otransferase (ALT) measurementOrdered By: Citlalli Cabrera on 11-30-2024 ALT [Catalytic activity/Vol] 20 U/L <35 [facility] Serum or plasma uric acid me asurement (mass/volume)Ordered By: Citlalli Cabrera on 11-30-2024 Urate [Mass/Vol] 3.3 mg/dL 2.6-6.0 [facility] Comment on above: The drugs N-Acetylcy steine and Metamizole may falsely depress this assay. Uric Acidon 11-30-2024 URIC 3.3 mg/dL Normal 2.6-6.0 [facility] Comment on above: Result Comment: The drugs N-Acetylcysteine and Metamizole may falsely depress this assay. Performed By: #### L 100.0500, L501.1400, L501.4405, L501.0900, L501.1105, L501.4100 #### [facility] [address] [place], [address] Urine protein measurement (m ass/volume)Ordered By: Citlalli Cabrera on 11-30-2024 Protein (U) [Mass/Vol] 9.0 mg/dL 0.0-12.0 [facility] Urine protein/creatinine mas s ratioOrdered By: Citlalli Cabrera on 11-30-2024 Protein/Creatinine (U) [Mass ratio] 166 mg/g CRE 0-200 [facility] White blood cell (WBC) count Ordered By: Citlalli Cabrera on 11-30-2024 WBC (Bld) [#/Vol] 12.0 10*3/uL High 4.4-11.0 [facility] Urine Cultureon 11-24-2024 URC Pending Mixed Gram Positive Organisms Kelley Count 80,000-100,000 MIXC Mixed contaminants. Submit a new specimen if indicated. Normal [facility] Comment on above: Performed By: #### L 501.0250, L509.8002, BTS, L3890.6006, L100.0100 #### [facility] [address] [facility] [place], [place], [address] Laboratory - Chemistry and C hemistry - challengeOrdered By: Citlalli Cabrera on 11-23-2024 Glucose Ql (U) Negative [facility] - UrinalysisOrder ed By: Citlalli Cabrera on 11-23-2024 Protein Ql (U) Negative [facility] OB Limited With Biometricson 11-23-2024 OB Limited With Biometrics [facility] Imaging Services [address] [place], [place] [address] OB Limited With Biometrics MR#: [id number] Acct: [id number] Name: MARIBEL CROCKETT Rep #: [id number] : 1990 F 34 From: Jacky thayer MD PCP: Care Physician,No Primary Status: REG CLI Study: OB Limited With Biometrics Date of Exam: 11/23 Exam# [id number] Ordering Dr: Citlalli Cabrera PROCEDURE: OB LIMITED WITH BIOMETRICS 11/23/2024 REASON FOR EXAM: GROWTH TECHNIQUE: OB LIMITED WITH BIOMETRICS COMPARISON: None FINDINGS Number: 1 Position: Vertex Placental Position: Anterior and not low-lying Placental Abnormalities: No evidence of previa. DIMENSIONS: Biparietal Diameter: 8.3 cm: 33 weeks and 3 days: 29 percentile/ Head Circumference: 32.78 cm: 37 weeks and 2 days: 89 percentile/ Abdominal Circumference: 28.76 cm: 32 weeks and 5 days: 20 percentile/ Femur Length: 6.74 cm: 34 weeks and 5 days: 58 percentile./ ESTIMATED WEIGHT: 2220 g plus/-332 g ESTIMATED WEIGHT PERCENTILE (24+ weeks): 31 ESTIMATED GESTATIONAL AGE: Baseline: 34 weeks and 0 days By Ultrasound: 34 weeks and 6 days ESTIMATED DATE OF DELIVERY: Baseline: January 04, 2025 By Ultrasound: December 29, 2024 BIOPHYSICAL ASSESSMENT: Amniotic Fluid Volume: 3.1 cm Amniotic Fluid Index: 10.2 (8-24 cm normal range) Cardiac Motion: 141 beats per minute (average) Trunk and Limb Motion: Present. MATERNAL ANATOMY: Adnexa: Neither maternal ovary is successfully identified. Cervical Length (if measured): 3.9 cm US/OB Limited With Biometrics IMPRESSION: Single live intrauterine gestation with a mean gestational age of 34 weeks and 6 days. Reading Location: [id number] CC: Dr. Citlalli Cabrera MD; No Primary Care Physician Distribution Accounting Clerk: Signed Normal [facility] Logistics Account Manager Office Visit Reporton 11-23-2024 Logistics Account Manager Office Visit Report [facility] [address], [address] [place] [address] OFFICE VISIT Date of Service: 11/23/24 MR#: [id number] Acct: [id number] Name: MARIBEL CROCKETT Rep #: [id number] : 1990 Provider: Dr. Citlalli acuna MD Age/Sex: 34/F Location: [facility] Status: Signed Intake Vital Signs 10/02/24 14:24 11/21/24 08:32 11/23/24 15:32 11/23/24 15:34 Height 5 ft 7.5 in 5 ft 8 in 5 ft 8 in 5 ft 8 in Weight: 145 lb 8 oz BMI 22.1 BP 99/64 Intake Visit Reasons: 34 wk ob Administrative And Program Specialist Required: No Is patient in pain?: No Allergies No Known Allergies Allergy (Verified 11/23/24 15:32) Medications ???Medication ???Instructions ???Recorded ???Confirmed ???Type PNV 153-FA 400 mcg-om3 35 mg-dha 1 tab PO DAILY 06/02/24 11/23/24 History 25 mg-epa 5 mg-fish oil chew tablet cephalexin 500 mg capsule 500 mg PO Q6 7 days #28 caps 11/2111/23/24 Rx Last Menstrual Period: 03/30/24 Zika: Zika [...] 2 current occupational status: unemployed current occupation: [employer] pets and animals: Yes pets and animals: [...] physical activity do you participate in: none ramesh/mormon: Yarsanism seatbelt use: always do you feel safe at home: Yes 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 Date Name GA/Weeks Outcome Route Bth Weight Gen Labor Lgth Anesthesia Del Locatn Provider FOB 08/24/19 [place] 36 live - vacuum 6lb 8 oz Female 12 epidural [facility] Ho titi He Victor Manuel 02/22/21 [place] 38 live - full term 6# 8oz Female epidural [facility] Cal Rush Delivery Date: 08/24/19 Last [...] lb 6 oz 116/80 -???-???-???-???-???-???- ???-???-???-???-???-???- 175 -???-???-???- (more content not included)... Normal [facility] Absolute lymphocyte countOrd ered By: Citlalli Cabrera on 11-21-2024 Lymphocytes Auto (Unsp spec) [#/Vol] 1.73 10*3/uL 0.83-4.51 [facility] Absolute neutrophil countOrd ered By: Citlalli Cabrera on 11-21-2024 Neutrophils (Bld) [#/Vol] 8.7 10*3/uL High 2.0-7.7 [facility] Activated partial thrombopla stin time (aPTT) in platelet poor plasma by coagulation aOrdered By: Citlalli Cabrera on 11-21-2024 aPTT Coag (PPP) [Time] 23.7 s Low 24.1-36.2 [facility] Automated lymphocyte count a s percentage of total leukocytesOrdered By: Citlalli Cabrera on 11-21-2024 Lymphocytes/100 WBC Auto (Unsp spec) 15.4 % Low 19-41 [facility] Basophil percentageOrdered B y: Citlalli Cabrera on 11-21-2024 Basophils/100 WBC (Bld) 0.3 % 0-1 [facility] Bilirubin Test strip Ql (U)O rdered By: Citlalli Cabrera on 11-21-2024 Bilirubin Ql (U) Negative Negative [facility] CBC W/Diff, Automatedon 11-01 Absolute Lymph 1.73 X10 3/uL Normal 0.83-4.51 [facility] Comment on above: Performed By: #### L 501.0250, L509.8002, BTS, L3890.6006, L100.0100 #### [facility] [address] [place], [address] Absolute Neut 8.7 X10 3/uL High 2.0-7.7 [facility] Comment on above: Performed By: #### L 501.0250, L509.8002, BTS, L3890.6006, L100.0100 #### [facility] [address] [place], [address] Basophils/100 WBC (Bld) 0.3 % Normal 0-1 [facility] Comment on above: Performed By: #### L 501.0250, L509.8002, BTS, L3890.6006, L100.0100 #### [facility] [address] [place], [address] Eosinophils/100 WBC (Bld) 0.8 % Normal 0-5 [facility] Comment on above: Performed By: #### L 501.0250, L509.8002, BTS, L3890.6006, L100.0100 #### [facility] [address] [place], [address] Erythrocyte distribution width (RBC) [Ratio] 12.4 % Normal 11.6-14.6 [facility] Comment on above: Performed By: #### L 501.0250, L509.8002, BTS, L3890.6006, L100.0100 #### [facility] [address] [place], [address] Hematocrit (Bld) [Volume fraction] 37.3 % Normal 37-47 [facility] Comment on above: Performed By: #### L 501.0250, L509.8002, BTS, L3890.6006, L100.0100 #### [facility] [address] [place], [address] Hemoglobin (Bld) [Mass/Vol] 12.7 g/dL Normal 12.0-15.0 [facility] Comment on above: Performed By: #### L 501.0250, L509.8002, BTS, L3890.6006, L100.0100 #### [facility] [address] [place], [address] IG% 0.500 Normal 0.0-0.9 [facility] Comment on above: Result Comment: IG% - Immature Granulocytes (promyelocytes, myelocytes and metamyelocytes) > 1% indicates that a LEFT SHIFT is Present. Performed By: #### L 501.0250, L509.8002, BTS, L3890.6006, L100.0100 #### [facility] [address] [place], [address] Lymphocytes/100 WBC (Bld) 15.4 % Low 19-41 [facility] Comment on above: Performed By: #### L 501.0250, L509.8002, BTS, L3890.6006, L100.0100 #### [facility] [address] [place], [address] MCH (RBC) [Entitic mass] 30.7 pg Normal 27.0-32.0 [facility] Comment on above: Performed By: #### L 501.0250, L509.8002, BTS, L3890.6006, L100.0100 #### [facility] [address] [place], [address] MCHC (RBC) [Mass/Vol] 34.0 g/dL Normal 32-36 [facility] Comment on above: Performed By: #### L 501.0250, L509.8002, BTS, L3890.6006, L100.0100 #### [facility] [address] [place], [address] MCV (RBC) [Entitic vol] 90.1 fL Normal 81-99 [facility] Comment on above: Performed By: #### L 501.0250, L509.8002, BTS, L3890.6006, L100.0100 #### [facility] [address] [place], [address] Monocytes/100 WBC (Bld) 6.0 % Normal 0-10 [facility] Comment on above: Performed By: #### L 501.0250, L509.8002, BTS, L3890.6006, L100.0100 #### [facility] [address] [place], [address] Neutrophils/100 WBC (Bld) 77.0 % High 47-70 [facility] Comment on above: Performed By: #### L 501.0250, L509.8002, BTS, L3890.6006, L100.0100 #### [facility] [address] [place], [address] Nucleated RBC (Bld) [#/Vol] 0 10*3/uL Normal 0-5 [facility] Comment on above: Performed By: #### L 501.0250, L509.8002, BTS, L3890.6006, L100.0100 #### [facility] [address] [place], [address] Platelet mean volume (Bld) [Entitic vol] 12.4 fL High 6.2-12.0 [facility] Comment on above: Performed By: #### L 501.0250, L509.8002, BTS, L3890.6006, L100.0100 #### [facility] [address] [place], [address] Platelets (Bld) [#/Vol] 108 10*3/uL Low 150-450 [facility] Comment on above: Performed By: #### L 501.0250, L509.8002, BTS, L3890.6006, L100.0100 #### [facility] [address] [place], [address] RBC (Bld) [#/Vol] 4.14 10*6/uL Low 4.2-5.4 [facility] Comment on above: Performed By: #### L 501.0250, L509.8002, BTS, L3890.6006, L100.0100 #### [facility] [address] [place], [address] RDW SD 40.7 fl Normal 35.1-43.9 [facility] Comment on above: Performed By: #### L 501.0250, L509.8002, BTS, L3890.6006, L100.0100 #### [facility] [address] [place], [address] WBC (Bld) [#/Vol] 11.2 10*3/uL High 4.4-11.0 [facility] Comment on above: Performed By: #### L 501.0250, L509.8002, BTS, L3890.6006, L100.0100 #### [facility] [address] [place], [address] Eosinophil percentageOrdered By: Citlalli Cabrera on 11-21-2024 Eosinophils/100 WBC (Bld) 0.8 % 0-5 [facility] Erythrocyte distribution wid th ratioOrdered By: Citlalli Cabrera on 11-21-2024 Erythrocyte distribution width (RBC) [Ratio] 12.4 % 11.6-14.6 [facility] Erythrocyte distribution wid th standard deviationOrdered By: Citlalli Cabrera on 11-21-2024 Erythrocyte distribution width (RBC) [Ratio] 40.7 fl 35.1-43.9 [facility] Fibrinogenon 11-21-2024 FIBRINOGEN 425 mg/dl Normal 203-444 [facility] Comment on above: Performed By: #### L 501.0250, L509.8002, BTS, L3890.6006, L100.0100 #### [facility] [place], [address] Hematocrit Auto (Bld) [Volum e fraction]Ordered By: Citlalli Cabrera on 11-21-2024 Hematocrit (Bld) [Volume fraction] 37.3 % 37-47 [facility] Hemoglobin measurementOrdere d By: Citlalli Cabrera on 11-21-2024 Hemoglobin (Bld) [Mass/Vol] 12.7 g/dL 12.0-15.0 [facility] Immature granulocytes/100 WB C Auto (Bld)Ordered By: Citlalli Cabrera on 11-21-2024 Immature granulocytes/100 WBC (Bld) 0.500 % 0.0-0.9 [facility] Comment on above: IG% - Immature Granu locytes (promyelocytes, myelocytes and metamyelocytes) > 1% indicates that a LEFT SHIFT is Present. International normalized rat io (INR) calculationOrdered By: Citlalli Cabrera on 11-21-2024 INR Coag (Bld) [Relative time] 0.9 {INR} [facility] Ketones Test strip Ql (U)Ord ered By: Citlalli Cabrera on 11-21-2024 Ketones Ql (U) Negative Negative [facility] MCV (mean corpuscular volume ) determinationOrdered By: Citlalli Cabrera on 11-21-2024 MCV (RBC) [Entitic vol] 90.1 fL 81-99 [facility] Mean corpuscular hemoglobin (MCH) determinationOrdered By: Citlalli Cabrera on 11-21-2024 MCH (RBC) [Entitic mass] 30.7 pg 27.0-32.0 [facility] Mean corpuscular hemoglobin concentration (MCHC) determinationOrdered By: Citlalli Cabrera on 11-21-2024 MCHC (RBC) [Mass/Vol] 34.0 g/dL 32-36 [facility] Mean platelet volume determi nationOrdered By: Citlalli Cabrera on 11-21-2024 Platelet mean volume (Bld) [Entitic vol] 12.4 fL High 6.2-12.0 [facility] Monocyte percentageOrdered B y: Citlalli Cabrera on 11-21-2024 Monocytes/100 WBC (Bld) 6.0 % 0-10 [facility] Neutrophil percentageOrdered By: Citlalli Cabrera on 11-21-2024 Neutrophils/100 WBC (Bld) 77.0 % High 47-70 [facility] Nitrite Test strip Ql (U)Ord ered By: Citlalli Cabrera on 11-21-2024 Nitrite Ql (U) Negative Negative [facility] Nucleated red blood cell per centageOrdered By: Citlalli Cabrera on 11-21-2024 Nucleated RBC/100 WBC (Bld) [Ratio] 0 % 0-5 [facility] OB Triage Progress Noteon OB Triage Progress Note [facility] Medical Records Department [address] [place] [address] OB Triage Progress Note 11/21/24 0952 MR#: [id number] Acct: [id number] Name: MARIBEL CROCKETT Rep #: [id number] : 1990 34 From: Citlalli Cabrera MD PCP: Care Physician,No Primary Status:DEP CLI Y DOS: Location: WPOUT Progress Notes Date of Service: 11/21/24 Progress Note: Patient presents for triage evaluation secondary to vaginal bleeding pregnacy FHT: 140 Moderate variability reactive no decelerations category I tracing [place]: occasional Contractions Assessment and plan: threatened labor [...] Lymph % (Auto) 15.4 L (19-41) % O'Brien % (Auto) 6.0 (0-10) % Eos % [...] pH 8.0 (5.0 - 8.0) Ur Specific [place] 1.015 (1.002-1.030) Urine Protein 15 H (Negative) mg/dl Urine Glucose (UA) Normal (Normal) mg/dl Urine Ketones Negative (Negative) mg/dl Urine Occult Blood 10 H (Negative) /ul Urine Nitrite Negative (Negative) Urine Bilirubin Negative (Negative) mg/dL Urine Urobilinogen Normal (Normal) mg/dl Ur Leukocyte Esterase 500 H (Negative) /ul Blood Type A POSITIVE Antibody Screen NEGATIVE Charges/Coding Procedures Urinary/Genital 52xxx-59xxx: 39234-17 non-stress test Interp 11/21/242001 Date Citlalli Cabrera MD Cosigner Signature (if applicable): Date CC: Dr. Citlalli Cabrera MD; No Primary Care Physician Signed ADDENDUM by Dr. Citlalli Cabrera MD on 11/30/24 at 1733 Addendum 33 weeks 11/30/241732 Date Citlalli Cabrera MD cc: Dr. Citlalli Cabrera MD; No Primary Care Physician * Signed Normal [facility] Partial Thromboplast Timeon 11-21-2024 aPTT Coag (Bld) [Time] 23.7 s Low 24.1-36.2 [facility] Comment on above: Performed By: #### L 501.0250, L509.8002, BTS, L3890.6006, L100.0100 #### [facility] [address] [place], [address] Platelet countOrdered By: Khoi Cabrera on 11-21-2024 Platelets (Bld) [#/Vol] 108 10*3/uL Low 150-450 [facility] Protein Test strip Ql (U)Ord ered By: Citlalli Cabrera on 11-21-2024 Protein Ql (U) 15 mg/dl High Negative [facility] Prothrombin Time w/INRon INR Coag (PPP) [Relative time] 0.9 {INR} Normal [facility] Comment on above: Performed By: #### L 501.0250, L509.8002, BTS, L3890.6006, L100.0100 #### [facility] [address] [place], [address] PT Coag (PPP) [Time] 12.4 s Normal 11.7-14.[address] [facility] Comment on above: Performed By: #### L 501.0250, L509.8002, BTS, L3890.6006, L100.0100 #### [facility] [address] [place], [address] Prothrombin timeOrdered By: Citlalli Cabrera on 11-21-2024 PT Coag (PPP) [Time] 12.4 s 11.7-14.[address] [facility] RBC Auto (Bld) [#/Vol]Ordere d By: Citlalli Cabrera on 11-21-2024 RBC (Bld) [#/Vol] 4.14 10*6/uL Low 4.2-5.4 [facility] Type AND Screenon 11-21-2024 Ab SCREEN GEL Negative Normal [facility] Comment on above: Order Comment: Labor Performed By: #### L 501.0250, L509.8002, BTS, L3890.6006, L100.0100 #### [facility] [address] [place], [address] Urinalysis, Routine (Dipstic k)on 11-21-2024 BILIRUBIN URINE Negative Normal Negative [facility] Comment on above: Order Comment: CLEAN CATCH Performed By: #### L 501.0250, L509.8002, BTS, L3890.6006, L100.0100 #### [facility] [address] [place], [address] Clarity (U) Sl. Cloudy Normal Clear [facility] Comment on above: Order Comment: CLEAN CATCH Performed By: #### L 501.0250, L509.8002, BTS, L3890.6006, L100.0100 #### [facility] [address] [place], [address] Color (U) Yellow Normal Yellow [facility] Comment on above: Order Comment: CLEAN CATCH Performed By: #### L 501.0250, L509.8002, BTS, L3890.6006, L100.0100 #### [facility] [address] [place], [address] GLUCOSE, UR Normal Normal Normal [facility] Comment on above: Order Comment: CLEAN CATCH Performed By: #### L 501.0250, L509.8002, BTS, L3890.6006, L100.0100 #### [facility] [address] [place], [address] KETONE UR Negative Normal Negative [facility] Comment on above: Order Comment: CLEAN CATCH Performed By: #### L 501.0250, L509.8002, BTS, L3890.6006, L100.0100 #### [facility] [address] [place], [address] LEUK ESTERASE 500 /ul Abnormal Negative [facility] Comment on above: Order Comment: CLEAN CATCH Performed By: #### L 501.0250, L509.8002, BTS, L3890.6006, L100.0100 #### [facility] [address] [place], [address] Nitrite Ql (U) Negative Normal Negative [facility] Comment on above: Order Comment: CLEAN CATCH Performed By: #### L 501.0250, L509.8002, BTS, L3890.6006, L100.0100 #### [facility] [address] [place], [address] OCCULT BLOOD-UR 10 /ul Abnormal Negative [facility] Comment on above: Order Comment: CLEAN CATCH Performed By: #### L 501.0250, L509.8002, BTS, L3890.6006, L100.0100 #### [facility] [address] [place], [address] pH UR 8.0 Normal 5.0 - 8.0 [facility] Comment on above: Order Comment: CLEAN CATCH Performed By: #### L 501.0250, L509.8002, BTS, L3890.6006, L100.0100 #### [facility] [address] [place], [address] PROT DIPSTX 15 mg/dl Abnormal Negative [facility] Comment on above: Order Comment: CLEAN CATCH Performed By: #### L 501.0250, L509.8002, BTS, L3890.6006, L100.0100 #### [facility] [address] [place], [address] SP.GR. DIPSTX 1.015 Normal 1.002-1.030 [facility] Comment on above: Order Comment: CLEAN CATCH Performed By: #### L 501.0250, L509.8002, BTS, L3890.6006, L100.0100 #### [facility] [address] [place], [address] UROBILI Normal Normal Normal [facility] Comment on above: Order Comment: CLEAN CATCH Performed By: #### L 501.0250, L509.8002, BTS, L3890.6006, L100.0100 #### [facility] [address] [place], [address] BILIRUBIN URINE Normal Negative [facility] Comment on above: Order Comment: COLLE CTOR TO SPECIFY Result Comment: Canc elled via OM: Order edited - Discontinuing original order Performed By: #### L 501.0250, L509.8002, BTS, L3890.6006, L100.0100 #### [facility] [address] [place], [address] Clarity (U) Normal Clear [facility] Comment on above: Order Comment: COLLE CTOR TO SPECIFY Result Comment: Canc elled via OM: Order edited - Discontinuing original order Performed By: #### L 501.0250, L509.8002, BTS, L3890.6006, L100.0100 #### [facility] [address] [place], [address] Color (U) Normal Yellow [facility] Comment on above: Order Comment: COLLE CTOR TO SPECIFY Result Comment: Canc elled via OM: Order edited - Discontinuing original order Performed By: #### L 501.0250, L509.8002, BTS, L3890.6006, L100.0100 #### [facility] [address] [place], [address] GLUCOSE, UR Normal Normal [facility] Comment on above: Order Comment: COLLE CTOR TO SPECIFY Result Comment: Canc elled via OM: Order edited - Discontinuing original order Performed By: #### L 501.0250, L509.8002, BTS, L3890.6006, L100.0100 #### [facility] [address] [place], [address] KETONE UR Normal Negative [facility] Comment on above: Order Comment: COLLE CTOR TO SPECIFY Result Comment: Canc elled via OM: Order edited - Discontinuing original order Performed By: #### L 501.0250, L509.8002, BTS, L3890.6006, L100.0100 #### [facility] [address] [place], [address] LEUK ESTERASE Normal Negative [facility] Comment on above: Order Comment: COLLE CTOR TO SPECIFY Result Comment: Canc elled via OM: Order edited - Discontinuing original order Performed By: #### L 501.0250, L509.8002, BTS, L3890.6006, L100.0100 #### [facility] [address] [place], [address] Nitrite Ql (U) Normal Negative [facility] Comment on above: Order Comment: COLLE CTOR TO SPECIFY Result Comment: Canc elled via OM: Order edited - Discontinuing original order Performed By: #### L 501.0250, L509.8002, BTS, L3890.6006, L100.0100 #### [facility] [address] [place], [address] OCCULT BLOOD-UR Normal Negative [facility] Comment on above: Order Comment: COLLE CTOR TO SPECIFY Result Comment: Canc elled via OM: Order edited - Discontinuing original order Performed By: #### L 501.0250, L509.8002, BTS, L3890.6006, L100.0100 #### [facility] [address] [place], [address] pH UR Normal 5.0 - 8.0 [facility] Comment on above: Order Comment: COLLE CTOR TO SPECIFY Result Comment: Canc elled via OM: Order edited - Discontinuing original order Performed By: #### L 501.0250, L509.8002, BTS, L3890.6006, L100.0100 #### [facility] [address] [place], [address] PROT DIPSTX Normal Negative [facility] Comment on above: Order Comment: COLLE CTOR TO SPECIFY Result Comment: Canc elled via OM: Order edited - Discontinuing original order Performed By: #### L 501.0250, L509.8002, BTS, L3890.6006, L100.0100 #### [facility] [address] [place], [address] SP.GR. DIPSTX Normal 1.002-1.030 [facility] Comment on above: Order Comment: COLLE CTOR TO SPECIFY Result Comment: Canc elled via OM: Order edited - Discontinuing original order Performed By: #### L 501.0250, L509.8002, BTS, L3890.6006, L100.0100 #### [facility] [address] [place], [address] UR Preservative Normal [facility] Comment on above: Order Comment: COLLE CTOR TO SPECIFY Result Comment: Canc elled via OM: Order edited - Discontinuing original order Performed By: #### L 501.0250, L509.8002, BTS, L3890.6006, L100.0100 #### [facility] [address] [place], [place], [address] UROBILI Normal Normal [facility] Comment on above: Order Comment: COLLE CTOR TO SPECIFY Result Comment: Jeancarlos elled via OM: Order edited - Discontinuing original order Performed By: #### L 501.0250, L509.8002, BTS, L3890.6006, L100.0100 #### [facility] [address] [place], [place], [address] Urine clarityOrdered By: Felton Cabrera on 11-21-2024 Clarity (U) Sl. Cloudy Clear [facility] Urine color determinationOrd ered By: Citlalli Cabrera on 11-21-2024 Color (U) Yellow Yellow [facility] Urine cultureOrdered By: Felton Cabrera on 11-21-2024 Bacteria identified Cx Nom (U) Positive Abnormal [facility] Urine glucose detectionOrder ed By: Citlalli Cabrera on 11-21-2024 Glucose Ql (U) Normal mg/dl Normal [facility] Urine leukocyte esterase det ection by dipstickOrdered By: Citlalli Cabrera on 11-21-2024 Leukocyte esterase Test strip Ql (U) 500 /ul High Negative [facility] Urine pHOrdered By: Citlalli medrano on 11-21-2024 pH (U) 8.0 [pH] 5.0 - 8.0 [facility] Urine specific gravity measu rementOrdered By: Citlalli Cabrera on 11-21-2024 Specific gravity (U) [Rel density] 1.015 1.002-1.030 [facility] Urine urobilinogen measureme ntOrdered By: Citlalli Cabrera on 11-21-2024 Urobilinogen Ql (U) Normal mg/dl Normal [facility] White blood cell (WBC) count Ordered By: Citlalli Cabrera on 11-21-2024 WBC (Bld) [#/Vol] 11.2 10*3/uL High 4.4-11.0 [facility] - Chemistry and C hemistry - challengeOrdered By: Kamla Zheng on 11-08-2024 Glucose Ql (U) Negative [facility] - UrinalysisOrder ed By: Kamla Zheng on 11-08-2024 Protein Ql (U) Negative [facility] Logistics Account Manager Office Visit Reporton 11-08-2024 Logistics Account Manager Office Visit Report [facility] [address], [address] [place] [address] OFFICE VISIT Date of Service: 11/08/24 MR#: [id number] Acct: [id number] Name: MARIBEL CROCKETT Rep #: [id number] : 1990 Provider: MITZI johnson Age/Sex: 34/F Location: [facility] Status: Signed Intake Vital Signs 10/02/24 14:24 10/23/24 15:11 11/08/24 15:43 Height 5 ft 7.5 in 5 ft 7.5 in 5 ft 7.5 in Weight: 143 lb 2 oz BMI 22.1 BP 118/64 Intake Visit Reasons: 32 wk ob Chief Complaint: 32 Week OB Administrative And Program Specialist Required: No Is patient in pain?: No [...] 2 current occupational status: unemployed current occupation: [employer] pets and animals: Yes pets and animals: [...] physical activity do you participate in: none ramesh/mormon: Yarsanism seatbelt use: always do you feel safe at home: Yes 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 Normal [facility] - Chemistry and C hemistry - challengeOrdered By: Citlalli Cabrera on 10-23-2024 Glucose Ql (U) Negative [facility] - UrinalysisOrder ed By: Citlalli Cabrera on 10-23-2024 Protein Ql (U) Negative [facility] Logistics Account Manager Office Visit Reporton 10-23-2024 Logistics Account Manager Office Visit Report [facility] [address], [address] [place] [address] OFFICE VISIT Date of Service: 10/23/24 MR#: [id number] Acct: [id number] Name: MARIBEL CROCKETT Rep #: [id number] : 1990 Provider: Dr. Citlalli acuna MD Age/Sex: 34/F Location: [facility] Status: Signed Intake Vital Signs 08/09/24 15:05 10/17/24 09:36 10/23/24 15:11 Height 5 ft 7.5 in 5 ft 7.5 in Weight: 144 lb 4 oz BMI 22.2 BP 95/60 Intake Visit Reasons: 30wk ob, pessary fitting. 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 Normal [facility] Absolute lymphocyte countOrd ered By: Samm Castillo on 10-17-2024 Lymphocytes Auto (Unsp spec) [#/Vol] 1.56 10*3/uL 0.83-4.51 [facility] Absolute neutrophil countOrd ered By: Samm [facility] on 10-17-2024 Neutrophils (Bld) [#/Vol] 7.0 10*3/uL 2.0-7.7 [facility] Anion gap in Serum or Plasma Ordered By: Samm Colbert on 10-17-2024 Anion gap [Moles/Vol] 10 mmol/L 5-15 [facility] Automated lymphocyte count a s percentage of total leukocytesOrdered By: Samm Colbert on 10-17-2024 Lymphocytes/100 WBC Auto (Unsp spec) 16.8 % Low 19-41 [facility] BUN/creatinine ratioOrdered By: Samm Colbert on 10-17-2024 Urea nitrogen/Creatinine [Mass ratio] 18.6 mg/mg 10- [facility] Basophil percentageOrdered B y: Samm Colbert on 10-17-2024 Basophils/100 WBC (Bld) 0.2 % 0-1 [facility] Bilirubin, totalOrdered By: Samm Colbert on 10-17-2024 Bilirubin [Mass/Vol] mg/dL 0.00-1.[address] [facility] CBC W/Diff, Automatedon 10-01 Absolute Lymph 1.56 X10 3/uL Normal 0.83-4.51 [facility] Comment on above: Performed By: #### L 501.0250, L509.8002, BTS, L3890.6006, L100.0100 #### [facility] [address] [place], [address] Absolute Neut 7.0 X10 3/uL Normal 2.0-7.7 [facility] Comment on above: Performed By: #### L 501.0250, L509.8002, BTS, L3890.6006, L100.0100 #### [facility] [address] [place], [address] Basophils/100 WBC (Bld) 0.2 % Normal 0-1 [facility] Comment on above: Performed By: #### L 501.0250, L509.8002, BTS, L3890.6006, L100.0100 #### [facility] [address] [place], [address] Eosinophils/100 WBC (Bld) 0.9 % Normal 0-5 [facility] Comment on above: Performed By: #### L 501.0250, L509.8002, BTS, L3890.6006, L100.0100 #### [facility] [address] [place], [address] Erythrocyte distribution width (RBC) [Ratio] 12.6 % Normal 11.6-14.6 [facility] Comment on above: Performed By: #### L 501.0250, L509.8002, BTS, L3890.6006, L100.0100 #### [facility] [address] [place], [address] Hematocrit (Bld) [Volume fraction] 37.7 % Normal 37-47 [facility] Comment on above: Performed By: #### L 501.0250, L509.8002, BTS, L3890.6006, L100.0100 #### [facility] [address] [place], [address] Hemoglobin (Bld) [Mass/Vol] 12.8 g/dL Normal 12.0-15.0 [facility] Comment on above: Performed By: #### L 501.0250, L509.8002, BTS, L3890.6006, L100.0100 #### [facility] [address] [place], [address] IG% 0.500 Normal 0.0-0.9 [facility] Comment on above: Result Comment: IG% - Immature Granulocytes (promyelocytes, myelocytes and metamyelocytes) > 1% indicates that a LEFT SHIFT is Present. Performed By: #### L 501.0250, L509.8002, BTS, L3890.6006, L100.0100 #### [facility] [address] [place], [address] Lymphocytes/100 WBC (Bld) 16.8 % Low 19-41 [facility] Comment on above: Performed By: #### L 501.0250, L509.8002, BTS, L3890.6006, L100.0100 #### [facility] [address] [place], [address] MCH (RBC) [Entitic mass] 30.9 pg Normal 27.0-32.0 [facility] Comment on above: Performed By: #### L 501.0250, L509.8002, BTS, L3890.6006, L100.0100 #### [facility] [address] [place], [address] MCHC (RBC) [Mass/Vol] 34.0 g/dL Normal 32-36 [facility] Comment on above: Performed By: #### L 501.0250, L509.8002, BTS, L3890.6006, L100.0100 #### [facility] [address] [place], [address] MCV (RBC) [Entitic vol] 91.1 fL Normal 81-99 [facility] Comment on above: Performed By: #### L 501.0250, L509.8002, BTS, L3890.6006, L100.0100 #### [facility] [address] [place], [address] Monocytes/100 WBC (Bld) 6.7 % Normal 0-10 [facility] Comment on above: Performed By: #### L 501.0250, L509.8002, BTS, L3890.6006, L100.0100 #### [facility] [address] [place], [address] Neutrophils/100 WBC (Bld) 74.9 % High 47-70 [facility] Comment on above: Performed By: #### L 501.0250, L509.8002, BTS, L3890.6006, L100.0100 #### [facility] [address] [place], [address] Nucleated RBC (Bld) [#/Vol] 0 10*3/uL Normal 0-5 [facility] Comment on above: Performed By: #### L 501.0250, L509.8002, BTS, L3890.6006, L100.0100 #### [facility] [address] [place], [address] Platelet mean volume (Bld) [Entitic vol] 11.9 fL Normal 6.2-12.0 [facility] Comment on above: Performed By: #### L 501.0250, L509.8002, BTS, L3890.6006, L100.0100 #### [facility] [address] [place], [address] Platelets (Bld) [#/Vol] 105 10*3/uL Low 150-450 [facility] Comment on above: Performed By: #### L 501.0250, L509.8002, BTS, L3890.6006, L100.0100 #### [facility] [address] [place], [address] RBC (Bld) [#/Vol] 4.14 10*6/uL Low 4.2-5.4 [facility] Comment on above: Performed By: #### L 501.0250, L509.8002, BTS, L3890.6006, L100.0100 #### [facility] [address] [place], [address] RDW SD 41.7 fl Normal 35.1-43.9 [facility] Comment on above: Performed By: #### L 501.0250, L509.8002, BTS, L3890.6006, L100.0100 #### [facility] [address] [place], [address] WBC (Bld) [#/Vol] 9.3 10*3/uL Normal 4.4-11.0 [facility] Comment on above: Performed By: #### L 501.0250, L509.8002, BTS, L3890.6006, L100.0100 #### [facility] [address] [place], [address] Carbon dioxide, total [Moles /volume] in Central venous bloodOrdered By: Samm Colbert on 10-17-2024 CO2 [Moles/Vol] 21.0 mmol/L 21.0-32.0 [facility] Chloride assayOrdered By: Aidee Colbert on 10-17-2024 Chloride [Moles/Vol] 104 mmol/L 98-[address] [facility] Comprehensive Metabolic Prof ilon 10-17-2024 Albumin [Mass/Vol] 3.5 g/dL Normal 3.5-5.0 [facility] Comment on above: Performed By: #### L 501.0250, L509.8002, BTS, L3890.6006, L100.0100 #### [facility] [address] [place], [address] Albumin/Globulin [Mass ratio] 1.5 {ratio} Normal 0.9-2.4 [facility] Comment on above: Performed By: #### L 501.0250, L509.8002, BTS, L3890.6006, L100.0100 #### [facility] [address] [place], [address] ALK PHOS 54 U/L Normal 35-104 [facility] Comment on above: Performed By: #### L 501.0250, L509.8002, BTS, L3890.6006, L100.0100 #### [facility] [address] [place], [address] ALT [Catalytic activity/Vol] 15 U/L Normal <=34 [facility] Comment on above: Performed By: #### L 501.0250, L509.8002, BTS, L3890.6006, L100.0100 #### [facility] [address] [place], [address] AST [Catalytic activity/Vol] 21 U/L Normal <=31 [facility] Comment on above: Performed By: #### L 501.0250, L509.8002, BTS, L3890.6006, L100.0100 #### [facility] [address] [place], [address] BUN/CRE 18.6 RATIO Normal 10-20 [facility] Comment on above: Performed By: #### L 501.0250, L509.8002, BTS, L3890.6006, L100.0100 #### [facility] [address] [place], [address] Calcium [Mass/Vol] 8.2 mg/dL Normal 7.6-11.0 [facility] Comment on above: Performed By: #### L 501.0250, L509.8002, BTS, L3890.6006, L100.0100 #### [facility] [address] [place], [address] Chloride [Moles/Vol] 104 mmol/L Normal 98-[address] [facility] Comment on above: Performed By: #### L 501.0250, L509.8002, BTS, L3890.6006, L100.0100 #### [facility] [address] [place], [address] CO2 [Moles/Vol] 21.0 mmol/L Normal 21.0-32.0 [facility] Comment on above: Performed By: #### L 501.0250, L509.8002, BTS, L3890.6006, L100.0100 #### [facility] [address] [place], [address] Creatinine [Mass/Vol] 0.42 mg/dL Low 0.70-1.20 [facility] Comment on above: Performed By: #### L 501.0250, L509.8002, BTS, L3890.6006, L100.0100 #### [facility] [address] [place], [address] GAP 10 Normal 5-15 [facility] Comment on above: Performed By: #### L 501.0250, L509.8002, BTS, L3890.6006, L100.0100 #### [facility] [address] [place], [address] GFR/1.73 sq M.predicted among non-blacks MDRD (S/P/Bld) [Vol rate/Area] 132 mL/min/{1.73_m2} Normal >60 [facility] Comment on above: Result Comment: mL/m in/1.73m2 CKD-EPI Creatinine Equation (2020) Performed By: #### L 501.0250, L509.8002, BTS, L3890.6006, L100.0100 #### [facility] [address] [place], [address] Globulin (S) [Mass/Vol] 2.3 g/dL Normal 2.2-4.2 [facility] Comment on above: Performed By: #### L 501.0250, L509.8002, BTS, L3890.6006, L100.0100 #### [facility] [address] [place], [address] Glucose [Mass/Vol] 78 mg/dL Normal 70-99 [facility] Comment on above: Performed By: #### L 501.0250, L509.8002, BTS, L3890.6006, L100.0100 #### [facility] [address] [place], [address] Potassium [Moles/Vol] 3.8 mmol/L Normal 3.3-5.1 [facility] Comment on above: Performed By: #### L 501.0250, L509.8002, BTS, L3890.6006, L100.0100 #### [facility] [address] [place], [address] Sodium [Moles/Vol] 136 mmol/L Normal 133-145 [facility] Comment on above: Performed By: #### L 501.0250, L509.8002, BTS, L3890.6006, L100.0100 #### [facility] [address] [place], [address] T BILI < 0.15 Normal 0.00-1.30 [facility] Comment on above: Performed By: #### L 501.0250, L509.8002, BTS, L3890.6006, L100.0100 #### [facility] [address] [place], [address] T PROT 5.9 g/dL Normal 5.9-8.4 [facility] Comment on above: Performed By: #### L 501.0250, L509.8002, BTS, L3890.6006, L100.0100 #### [facility] [address] [place], [address] Urea nitrogen [Mass/Vol] 8 mg/dL Normal 4-19 [facility] Comment on above: Performed By: #### L 501.0250, L509.8002, BTS, L3890.6006, L100.0100 #### [facility] [address] [place], [address] Eosinophil percentageOrdered By: Samm Colbert on 10-17-2024 Eosinophils/100 WBC (Bld) 0.9 % 0-5 [facility] Erythrocyte distribution wid th ratioOrdered By: Samm Colbert on 10-17-2024 Erythrocyte distribution width (RBC) [Ratio] 12.6 % 11.6-14.6 [facility] Erythrocyte distribution wid th standard deviationOrdered By: Samm Colbert on 10-17-2024 Erythrocyte distribution width (RBC) [Ratio] 41.7 fl 35.1-43.9 [facility] Ferritinon 10-17-2024 Ferritin [Mass/Vol] 14 ng/mL Low 22-378 [facility] Comment on above: Performed By: #### L 501.0250, L509.8002, BTS, L3890.6006, L100.0100 #### [facility] [address] [place], [place], [address] Glomerular filtration rate ( GFR) estimation/1.73 sq m using serum, plasma, or whole bOrdered By: Samm Colbert on 10-17-2024 GFR/1.73 sq M.predicted among non-blacks MDRD (S/P/Bld) [Vol rate/Area] 132 mL/min/{1.73_m2} >60 [facility] Comment on above: mL/min/1.73m2 CKD-EP I Creatinine Equation (2020) Hematocrit Auto (Bld) [Volum e fraction]Ordered By: Samm Colbert on 10-17-2024 Hematocrit (Bld) [Volume fraction] 37.7 % 37-47 [facility] Hemoglobin measurementOrdere d By: Samm Colbert on 10-17-2024 Hemoglobin (Bld) [Mass/Vol] 12.8 g/dL 12.0-15.0 [facility] Immature granulocytes/100 WB C Auto (Bld)Ordered By: Samm Colbert on 10-17-2024 Immature granulocytes/100 WBC (Bld) 0.500 % 0.0-0.9 [facility] Comment on above: IG% - Immature Granu locytes (promyelocytes, myelocytes and metamyelocytes) > 1% indicates that a LEFT SHIFT is Present. Iron measurement (mass/mass) Ordered By: Samm Colbert on 10-17-2024 Iron (Unsp spec) [Mass/Mass] 87 ug/dL 50-170 [facility] Iron+Iron Binding Capacityon 10-17-2024 Iron [Mass/Vol] 87 ug/dL Normal 50-170 [facility] Comment on above: Performed By: #### L 501.0250, L509.8002, BTS, L3890.6006, L100.0100 #### [facility] [address] [place], [place], [address] IRON SATURATION 21.0 Normal 13-59 [facility] Comment on above: Performed By: #### L 501.0250, L509.8002, BTS, L3890.6006, L100.0100 #### [facility] [address] [place], [address] TIBC 425 ug/dL Normal 250-450 [facility] Comment on above: Performed By: #### L 501.0250, L509.8002, BTS, L3890.6006, L100.0100 #### [facility] [address] [place], [address] UIBC 338 ug/dL Normal 228-428 [facility] Comment on above: Performed By: #### L 501.0250, L509.8002, BTS, L3890.6006, L100.0100 #### [facility] [address] [place], [address] LDHon 10-17-2024 LDH 157 U/L Normal 84-246 [facility] Comment on above: Order Comment: 1 Performed By: #### L 501.0250, L509.8002, BTS, L3890.6006, L100.0100 #### [facility] [address] [place], [address] Laboratory - Chemistry and C hemistry - challengeOrdered By: Samm Colbert on 10-17-2024 AST [Catalytic activity/Vol] 21 U/L <32 [facility] Lactate dehydrogenase (LDH) measurementOrdered By: Samm Colbert on 10-17-2024 LDH [Catalytic activity/Vol] 157 U/L 84-246 [facility] MCV (mean corpuscular volume ) determinationOrdered By: Samm Clobert on 10-17-2024 MCV (RBC) [Entitic vol] 91.1 fL 81-99 [facility] Mean corpuscular hemoglobin (MCH) determinationOrdered By: Samm Colbert on 10-17-2024 MCH (RBC) [Entitic mass] 30.9 pg 27.0-32.0 [facility] Mean corpuscular hemoglobin concentration (MCHC) determinationOrdered By: Samm Colbert on 10-17-2024 MCHC (RBC) [Mass/Vol] 34.0 g/dL 32-36 [facility] Mean platelet volume determi nationOrdered By: Samm Colbert on 10-17-2024 Platelet mean volume (Bld) [Entitic vol] 11.9 fL 6.2-12.0 [facility] Monocyte percentageOrdered B y: Samm Colbert on 10-17-2024 Monocytes/100 WBC (Bld) 6.7 % 0-10 [facility] Neutrophil percentageOrdered By: [place] Sayra on 10-17-2024 Neutrophils/100 WBC (Bld) 74.9 % High 47-70 [facility] No Panel InformationOrdered By: Samm Colbert on 10-17-2024 Unsaturated Iron Binding Capacity 338 ug/dL 228-428 [facility] Nucleated red blood cell per centageOrdered By: Samm Colbert on 10-17-2024 Nucleated RBC/100 WBC (Bld) [Ratio] 0 % 0-5 [facility] Oncology Visit Reporton 10-01 Oncology Visit Report [facility] [address] [place] [address] OFFICE VISIT Date of Service: 10/17/24931 MR#: [id number] Acct: [id number] Name: MARIBEL CROCKETT Rep #: [id number] : 1990 From: Samm Colbert MD Age/Sex: 34/F Location: [facility] Status: Signed HPI Subjective Date of Service [...] the left nostril on and off. 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 Normal [facility] Platelet countOrdered By: Aidee Colbert on 10-17-2024 Platelets (Bld) [#/Vol] 105 10*3/uL Low 150-450 [facility] Potassium measurement (mass/ volume)Ordered By: Samm Colbert on 10-17-2024 Potassium (Unsp spec) [Mass/Vol] 3.8 mmol/L 3.3-5.1 [facility] RBC Auto (Bld) [#/Vol]Ordere d By: Samm Colbret on 10-17-2024 RBC (Bld) [#/Vol] 4.14 10*6/uL Low 4.2-5.4 [facility] Serum creatinine measurement (mass/volume)Ordered By: Samm Colbert on 10-17-2024 Creatinine [Mass/Vol] 0.42 mg/dL Low 0.70-1.20 [facility] Serum globulin measurementOr dered By: Samm Colbert on 10-17-2024 Globulin (S) [Mass/Vol] 2.3 g/dL 2.2-4.2 [facility] Serum glucose measurement (m ass/volume)Ordered By: Samm Colbert on 10-17-2024 Glucose [Mass/Vol] 78 mg/dL 70-99 [facility] Serum or plasma alanine elizondo otransferase (ALT) measurementOrdered By: Samm Colbert on 10-17-2024 ALT [Catalytic activity/Vol] 15 U/L <35 [facility] Serum or plasma albumin kourtney urement (mass/volume)Ordered By: Samm Colbert on 10-17-2024 Albumin [Mass/Vol] 3.5 g/dL 3.5-5.0 [facility] Serum or plasma albumin/glob ulin mass ratioOrdered By: Samm Colbert on 10-17-2024 Albumin/Globulin [Mass ratio] 1.5 {ratio} 0.9-2.4 [facility] Serum or plasma alkaline nhung sphatase measurementOrdered By: Samm Colbert on 10-17-2024 ALP [Catalytic activity/Vol] 54 U/L 35-104 [facility] Serum or plasma calcium kourtney urement (mass/volume)Ordered By: Samm Colbert on 10-17-2024 Calcium [Mass/Vol] 8.2 mg/dL 7.6-11.0 [facility] Serum or plasma ferritin mary surement (mass/volume)Ordered By: Samm Colbert on 10-17-2024 Ferritin [Mass/Vol] 14 ng/mL Low 22-378 [facility] Serum or plasma iron saturat ion measurement (mass fraction)Ordered By: Samm Colbert on 10-17-2024 Iron saturation [Mass fraction] 21.0 % 13-59 [facility] Serum or plasma urea nitroge n measurement (mass/volume)Ordered By: Samm Colbert on 10-17-2024 Urea nitrogen [Mass/Vol] 8 mg/dL 4-19 [facility] Sodium levelOrdered By: Carlos Colbert on 10-17-2024 Sodium [Moles/Vol] 136 mmol/L 133-145 [facility] Total proteinOrdered By: Gilmer Colbert on 10-17-2024 Protein [Mass/Vol] 5.9 g/dL 5.9-8.4 [facility] Vitamin B12on 10-17-2024 Cobalamin (Vitamin B12) [Mass/Vol] 523 pg/mL Normal 180-914 [facility] Comment on above: Performed By: #### L 501.0250, L509.8002, BTS, L3890.6006, L100.0100 #### [facility] [address] [place], [place], [id number] Vitamin B12 ser/plasOrdered By: Samm Colbert on 10-17-2024 Cobalamin (Vitamin B12) [Mass/Vol] 523 pg/mL 180-914 [facility] White blood cell (WBC) count Ordered By: Samm Colbert on 10-17-2024 WBC (Bld) [#/Vol] 9.3 10*3/uL 4.4-11.0 [facility] Urine Cultureon 10-11-2024 URC #2 FORMERLY ACTINOMY GAURANG SPP. Susceptibility not normally performed on this organism. Urine Culture Urine Culture Urine Culture Urine Culture Urine Culture Streptococcus mitis/ oralis Kelley Count 11,000-25,000 Schaalia odontolyticus Schaalia odontolyticus Streptococcus mitis/ oralis: REACTION Ampicillin Islt [place] <=0.25 S Penicillin G Islt [place] 0.12 Cefotaxime Islt [place] <=0.12 S cefTRIAXone Islt [place] <=0.12 S Linezolid Islt [place] <=2 S Vancomycin Islt [place] 0.5 S Normal [facility] Comment on above: Performed By: #### L 501.0250, L509.8002, BTS, L3890.6006, L100.0100 #### [facility] [address] [place], [place], [address] Laboratory - Chemistry and C hemistry - challengeOrdered By: Kamla Zheng on 10-04-2024 Bilirubin Ql (U) Negative [facility] Glucose Ql (U) Negative [facility] Ketones Ql (U) Negative [facility] pH (U) 8.0 [pH] [facility] Specific gravity (U) [Rel density] 1.010 [facility] Urobilinogen (U) [Mass/Vol] Negative [facility] Laboratory - Hematology and Cell countsOrdered By: Kamla Zheng on 10-04-2024 Hemoglobin Ql (U) Negative [facility] Laboratory - Specimen inform ationOrdered By: Kamla Zheng on 10-04-2024 Clarity (U) Cloudy [facility] Color (U) YELLOW [facility] Laboratory - UrinalysisOrder ed By: Kamla Zheng on 10-04-2024 Nitrite Ql (U) Negative [facility] Protein Ql (U) Negative [facility] No Panel InformationOrdered By: Kamla Zheng on 10-04-2024 Urine Leukocytes Positive [facility] Urine Non-Hemolyzed Blood Negative [facility] Logistics Account Manager Office Visit Reporton 10-04-2024 Logistics Account Manager Office Visit Report [facility]'s [address], [facility] [address] [place] [address] OFFICE VISIT Date of Service: 10/04/24 MR#: [id number] Acct: [id number] Name: MARIBEL CROCKETT Rep #: [id number] : 1990 Provider: MITZI johnson Age/Sex: 34/F Location: [facility] Status: Signed Intake Vital Signs 10/02/24 14:24 10/04/24 09:41 10/04/24 10:35 Height 5 ft 7.5 in 5 ft 7.5 in 5 ft 7.5 in Weight: 139 lb 4 oz 139 lb BMI 21.4 21.4 BP 96/65 109/70 Intake Visit Reasons: Possible Prolapse 26w6d per Chief Complaint: 26 wk OB Poss. prolapse Administrative And Program Specialist Required: No Is patient in pain?: No [...] 2 current occupational status: unemployed current occupation: [employer] pets and animals: Yes pets and animals: [...] physical activity do you participate in: none ramesh/mormon: Yarsanism seatbelt use: always do you feel safe at home: Yes additional social history: 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 History 3 Elective abortions 0 Hx Para [...] epidural [facility] Neri Rush 02/22/21 [place] 38 live - full term 6# 8oz Female epidural [facility] Cal Rush Delivery Date: 08/24/19 Last [...] -???-???-???-???-???-???- ???-???-???-???-???-???- (more content not included)... Normal [facility] Urine cultureOrdered By: Elias Zheng on 10-04-2024 Bacteria identified Cx Nom (U) Streptococcus mitis/ oralis Abnormal [facility] Bacteria identified Cx Nom (U) Scha[place] odontolyticus Abnormal [facility] Absolute lymphocyte countOrd ered By: Kecia Yunier on 10-02-2024 Lymphocytes Auto (Unsp spec) [#/Vol] 1.49 10*3/uL 0.83-4.51 [facility] Absolute neutrophil countOrd ered By: Kecia Yunier on 10-02-2024 Neutrophils (Bld) [#/Vol] 7.9 10*3/uL High 2.0-7.7 [facility] Automated lymphocyte count a s percentage of total leukocytesOrdered By: Kecia Faye on 10-02-2024 Lymphocytes/100 WBC Auto (Unsp spec) 14.8 % Low 19-41 [facility] Basophil percentageOrdered B y: Kecia Faye on 10-02-2024 Basophils/100 WBC (Bld) 0.3 % 0-1 [facility] CBC W/Diff, Automatedon Absolute Lymph 1.49 X10 3/uL Normal 0.83-4.51 [facility] Comment on above: Performed By: #### L 501.0250, L509.8002, BTS, L3890.6006, L100.0100 #### [facility] [address] [place], [address] Absolute Neut 7.9 X10 3/uL High 2.0-7.7 [facility] Comment on above: Performed By: #### L 501.0250, L509.8002, BTS, L3890.6006, L100.0100 #### [facility] [address] [place], [address] Basophils/100 WBC (Bld) 0.3 % Normal 0-1 [facility] Comment on above: Performed By: #### L 501.0250, L509.8002, BTS, L3890.6006, L100.0100 #### [facility] [address] [place], [address] Eosinophils/100 WBC (Bld) 0.8 % Normal 0-5 [facility] Comment on above: Performed By: #### L 501.0250, L509.8002, BTS, L3890.6006, L100.0100 #### [facility] [address] [place], [address] Erythrocyte distribution width (RBC) [Ratio] 12.3 % Normal 11.6-14.6 [facility] Comment on above: Performed By: #### L 501.0250, L509.8002, BTS, L3890.6006, L100.0100 #### [facility] [address] [place], [address] Hematocrit (Bld) [Volume fraction] 36.7 % Low 37-47 [facility] Comment on above: Performed By: #### L 501.0250, L509.8002, BTS, L3890.6006, L100.0100 #### [facility] [address] [place], [address] Hemoglobin (Bld) [Mass/Vol] 12.4 g/dL Normal 12.0-15.0 [facility] Comment on above: Performed By: #### L 501.0250, L509.8002, BTS, L3890.6006, L100.0100 #### [facility] [address] [place], [address] IG% 0.900 Normal 0.0-0.9 [facility] Comment on above: Result Comment: IG% - Immature Granulocytes (promyelocytes, myelocytes and metamyelocytes) > 1% indicates that a LEFT SHIFT is Present. Performed By: #### L 501.0250, L509.8002, BTS, L3890.6006, L100.0100 #### [facility] [address] [place], [address] Lymphocytes/100 WBC (Bld) 14.8 % Low 19-41 [facility] Comment on above: Performed By: #### L 501.0250, L509.8002, BTS, L3890.6006, L100.0100 #### [facility] [address] [place], [address] MCH (RBC) [Entitic mass] 31.1 pg Normal 27.0-32.0 [facility] Comment on above: Performed By: #### L 501.0250, L509.8002, BTS, L3890.6006, L100.0100 #### [facility] [address] [place], [address] MCHC (RBC) [Mass/Vol] 33.8 g/dL Normal 32-36 [facility] Comment on above: Performed By: #### L 501.0250, L509.8002, BTS, L3890.6006, L100.0100 #### [facility] [address] [place], [address] MCV (RBC) [Entitic vol] 92.0 fL Normal 81-99 [facility] Comment on above: Performed By: #### L 501.0250, L509.8002, BTS, L3890.6006, L100.0100 #### [facility] [address] [place], [address] Monocytes/100 WBC (Bld) 5.1 % Normal 0-10 [facility] Comment on above: Performed By: #### L 501.0250, L509.8002, BTS, L3890.6006, L100.0100 #### [facility] [address] [place], [address] Neutrophils/100 WBC (Bld) 78.1 % High 47-70 [facility] Comment on above: Performed By: #### L 501.0250, L509.8002, BTS, L3890.6006, L100.0100 #### [facility] [address] [place], [address] Nucleated RBC (Bld) [#/Vol] 0 10*3/uL Normal 0-5 [facility] Comment on above: Performed By: #### L 501.0250, L509.8002, BTS, L3890.6006, L100.0100 #### [facility] [address] [place], [address] Platelet mean volume (Bld) [Entitic vol] 12.5 fL High 6.2-12.0 [facility] Comment on above: Performed By: #### L 501.0250, L509.8002, BTS, L3890.6006, L100.0100 #### [facility] [address] [place], [address] Platelets (Bld) [#/Vol] 103 10*3/uL Low 150-450 [facility] Comment on above: Performed By: #### L 501.0250, L509.8002, BTS, L3890.6006, L100.0100 #### [facility] [address] [place], [address] RBC (Bld) [#/Vol] 3.99 10*6/uL Low 4.2-5.4 [facility] Comment on above: Performed By: #### L 501.0250, L509.8002, BTS, L3890.6006, L100.0100 #### [facility] [address] [place], [address] RDW SD 41.4 fl Normal 35.1-43.9 [facility] Comment on above: Performed By: #### L 501.0250, L509.8002, BTS, L3890.6006, L100.0100 #### [facility] [address] [place], [address] WBC (Bld) [#/Vol] 10.1 10*3/uL Normal 4.4-11.0 [facility] Comment on above: Performed By: #### L 501.0250, L509.8002, BTS, L3890.6006, L100.0100 #### [facility] [address] [place], [place], [address] Eosinophil percentageOrdered By: Kecia Faye on 10-02-2024 Eosinophils/100 WBC (Bld) 0.8 % 0-5 [facility] Erythrocyte distribution wid th ratioOrdered By: Kecia Faye on 10-02-2024 Erythrocyte distribution width (RBC) [Ratio] 12.3 % 11.6-14.6 [facility] Erythrocyte distribution wid th standard deviationOrdered By: Kecia Faye on 10-02-2024 Erythrocyte distribution width (RBC) [Ratio] 41.4 fl 35.1-43.9 [facility] Glucose Challenge Gest 1H 50 boogie 10-02-2024 GLU GEST 50g 1H 110 mg/dL Normal 70-140 [facility] Comment on above: Performed By: #### L 501.0250, L509.8002, BTS, L3890.6006, L100.0100 #### [facility] [address] [facility] [place], [place], [id number] Glucose measurement at 2 james rs post-dose gestational glucose tolerance testOrdered By: Kecia Faye on 10-02-2024 Glucose [Mass/Vol] 110 mg/dL 70-140 [facility] HIVon 10-02-2024 HIV Non-Reactive Normal Nonreactive [facility] Comment on above: Result Comment: Non- Reactive Reactive Repeatedly reactive samples must be confirmed according to CDC recommended confirmatory algorithms. The subresults for either HIVAG or AHIV can be used as an aid in the selection of the confirmation algorithm for reactive samples. Send out specimens with Reactive results to [facility] for confirmation. Order the HIV antibody detection and differentiation: lc#[id number] Performed By: #### L 501.0250, L509.8002, BTS, L3890.6006, L100.0100 #### [facility] [address] [place], [address] Hematocrit Auto (Bld) [Volum e fraction]Ordered By: Kecia Faye on 10-02-2024 Hematocrit (Bld) [Volume fraction] 36.7 % Low 37-47 [facility] Hemoglobin measurementOrdere d By: Kecia Faye on 10-02-2024 Hemoglobin (Bld) [Mass/Vol] 12.4 g/dL 12.0-15.0 [facility] Immature granulocytes/100 WB C Auto (Bld)Ordered By: Kecia Faye on 10-02-2024 Immature granulocytes/100 WBC (Bld) 0.900 % 0.0-0.9 [facility] Comment on above: IG% - Immature Granu locytes (promyelocytes, myelocytes and metamyelocytes) > 1% indicates that a LEFT SHIFT is Present. Laboratory - Chemistry and C hemistry - challengeOrdered By: Kecia Faye on 10-02-2024 Glucose Ql (U) Negative [facility] Laboratory - UrinalysisOrder ed By: Kecia Faye on 10-02-2024 Protein Ql (U) Negative [facility] MCV (mean corpuscular volume ) determinationOrdered By: Kecia Faye on 10-02-2024 MCV (RBC) [Entitic vol] 92.0 fL 81-99 [facility] Mean corpuscular hemoglobin (MCH) determinationOrdered By: Kecia Faye on 10-02-2024 MCH (RBC) [Entitic mass] 31.1 pg 27.0-32.0 [facility] Mean corpuscular hemoglobin concentration (MCHC) determinationOrdered By: Kecia Faye on 10-02-2024 MCHC (RBC) [Mass/Vol] 33.8 g/dL 32-36 [facility] Mean platelet volume determi nationOrdered By: Kecia Faye on 10-02-2024 Platelet mean volume (Bld) [Entitic vol] 12.5 fL High 6.2-12.0 [facility] Monocyte percentageOrdered B y: Kecia Faye on 10-02-2024 Monocytes/100 WBC (Bld) 5.1 % 0-10 [facility] Neutrophil percentageOrdered By: Kecia Faye on 10-02-2024 Neutrophils/100 WBC (Bld) 78.1 % High 47-70 [facility] No Panel InformationOrdered By: Kecia aFye on 10-02-2024 HIV (1&2) Antibody Non-Reactive Nonreactive [facility] Comment on above: Non-ReactiveReactive Repeatedly reactive samples must be confirmed according to CDC recommended confirmatory algorithms. The subresults for either HIVAG or AHIV can be used as an aid in the selection of the confirmation algorithm for reactive samples.Send out specimens with Reactive results to [facility] for confirmation.Order the HIV antibody detection and differentiation: #[id number] Nucleated red blood cell per centageOrdered By: Kecia Faye on 10-02-2024 Nucleated RBC/100 WBC (Bld) [Ratio] 0 % 0-5 [facility] Logistics Account Manager Office Visit Reporton 10-02-2024 Logistics Account Manager Office Visit Report [facility] [address], [address] [place] [address] OFFICE VISIT Date of Service: 10/02/24 MR#: [id number] Acct: [id number] Name: MARIBEL CROCKETT Rep #: [id number] : 1990 Provider: LEYLA Masters ams Age/Sex: 34/F Location: [facility] Status: Signed Intake Vital Signs 08/09/24 15:05 09/06/24 14:13 10/02/24 14:24 Height 5 ft 7.5 in 5 ft 7.5 in 5 ft 7.5 in Weight: 139 lb 4 oz BMI 21.4 BP 96/65 Intake Visit Reasons: 27 WK OB/GLUCOSE Chief Complaint: 27wk OB Administrative And Program Specialist Required: No Is patient in pain?: No [...] 2 current occupational status: unemployed current occupation: [employer] pets and animals: Yes pets and animals: [...] physical activity do you participate in: none ramesh/mormon: Yarsanism seatbelt use: always do you feel safe at home: Yes 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 Date Name GA/Weeks Outcome Route Bth Weight Gen Labor Lgth Anesthesia Del Locatn Provider FOB 08/24/19 Jose Elykadi 36 live - vacuum 6lb 8 oz Female 12 epidural [facility] Jg Rush 02/22/21 [place] 38 live - full term 6# 8oz Female epidural [facility] Cal Rush Delivery Date: 08/24/19 Last [...] -???-???-???-???-???-???- ???-???-???-?? (more content not included)... Normal [facility] Platelet countOrdered By: Rian Faye on 10-02-2024 Platelets (Bld) [#/Vol] 103 10*3/uL Low 150-450 [facility] RBC Auto (Bld) [#/Vol]Ordere d By: Kecia Faye on 10-02-2024 RBC (Bld) [#/Vol] 3.99 10*6/uL Low 4.2-5.4 [facility] Syphilis Antibodieson 2024 Syphilis Abs Non-Reactive Normal Nonreactive [facility] Comment on above: Performed By: #### L 501.0250, L509.8002, BTS, L3890.6006, L100.0100 #### [facility] [address] [place], [address] Type AND Screenon 10-02-2024 Ab SCREEN GEL Negative Normal [facility] Comment on above: Order Comment: PN Performed By: #### L 501.0250, L509.8002, BTS, L3890.6006, L100.0100 #### [facility] [address] [place], [address] White blood cell (WBC) count Ordered By: Kecia Faye on 10-02-2024 WBC (Bld) [#/Vol] 10.1 10*3/uL 4.4-11.0 [facility] Laboratory - Chemistry and C hemistry - challengeOrdered By: Kamla Zheng on 09-06-2024 Glucose Ql (U) Negative [facility] Laboratory - UrinalysisOrder ed By: Kamla Zheng on 09-06-2024 Protein Ql (U) Negative [facility] Logistics Account Manager Office Visit Reporton 09-06-2024 Logistics Account Manager Office Visit Report [address], [address] [place] [address] OFFICE VISIT Date of Service: 09/06/24 MR#: [id number] Acct: [id number] Name: MARIBEL CROCKETT Rep #: [id number] : 1990 Provider: MITZI johnson Age/Sex: 34/F Location: [facility] Status: Signed Intake Vital Signs 07/14/24 13:29 08/09/24 15:05 09/06/24 14:13 Height 5 ft 7.5 in 5 ft 7.5 in 5 ft 7.5 in Weight: 134 lb 8 oz BMI 20.7 BP 106/70 Intake Visit Reasons: 23 wk ob Chief Complaint: 23 Week OB Administrative And Program Specialist Required: No Is patient in pain?: No [...] 2 current occupational status: unemployed current occupation: [employer] pets and animals: Yes pets and animals: [...] physical activity do you participate in: none ramesh/mormon: Yarsanism seatbelt use: always do you feel safe at home: Yes 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 (more content not included)... Normal [facility] Laboratory - Chemistry and C hemistry - challengeOrdered By: Citlalli Cabrera on 08-09-2024 Glucose Ql (U) Negative [facility] Laboratory - UrinalysisOrder ed By: Citlalli Cabrera on 08-09-2024 Protein Ql (U) Negative [facility] Logistics Account Manager Office Visit Reporton 08-09-2024 Logistics Account Manager Office Visit Report [facility] [address], [address] [place] [address] OFFICE VISIT Date of Service: 08/09/24 MR#: [id number] Acct: [id number] Name: MARIBEL CROCKETT Rep #: [id number] : 1990 Provider: Dr. Citlalli acuna MD Age/Sex: 34/F Location: [facility] Status: Signed Intake Vital Signs 07/14/24 13:29 08/09/24 15:03 08/09/24 15:05 Height 5 ft 7.5 in 5 ft 7.5 in 5 ft 7.5 in Weight: 130 lb BMI 20.0 BP 103/65 Intake Visit Reasons: 19wk ob Administrative And Program Specialist Required: No Is patient in pain?: No [...] 2 current occupational status: unemployed current occupation: [employer] pets and animals: Yes pets and animals: [...] physical activity do you participate in: none ramesh/mormon: Yarsanism seatbelt use: always do you feel safe at home: Yes 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 Date Name GA/Weeks Outcome Route Bth Weight Infant Gen Labor Lgth Anesthesia Del Locatn Provider FOB 08/24/19 Jose Elyn 36 live - vacuum 6lb 8 oz Female 12 epidural [facility] titi Rsuh 02/22/21 [place] 38 live - full term 6# 8oz Female epidural [facility] Cal Rush Delivery Date: 08/24/19 Last [...] LMP 03 (more content not included)... Normal [facility] Laboratory - Chemistry and C hemistry - challengeOrdered By: Rosalba Mike on 07-14-2024 Glucose Ql (U) Negative [facility] Laboratory - UrinalysisOrder ed By: Rosalba Mike on 07-14-2024 Protein Ql (U) Negative [facility] Logistics Account Manager Office Visit Reporton 07-14-2024 Logistics Account Manager Office Visit Report [facility] [address], [address] [place] [address] OFFICE VISIT Date of Service: 07/14/24 MR#: [id number] Acct: [id number] Name: MARIBEL CROCKETT Rep #: [id number] : 1990 Provider: Dr. Rosalba Mata DO Age/Sex: 34/F Location: [facility] Status: Signed Intake Vital Signs 02/21/21 15:13 06/09/24 10:15 07/14/24 13:28 07/14/24 13:29 Height 5 ft 7.5 in 5 ft 7.5 in 5 ft 7.5 in 5 ft 7.5 in Weight: 126 lb 2 oz BMI 19.4 BP 115/75 Intake Visit Reasons: 15 wk OB Administrative And Program Specialist Required: No Is patient in pain?: No [...] 2 current occupational status: unemployed current occupation: [employer] pets and animals: Yes pets and animals: [...] physical activity do you participate in: none ramesh/mormon: Yarsanism seatbelt use: always do you feel safe at home: Yes 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 Date Name GA/Weeks Outcome Route Bth Weight Gen Labor Lgth Anesthesia Del Rustyatkadi Provider FOB 08/24/19 Eileen 36 live - vacuum 6lb 8 oz Female 12 epidural [facility] Ho josekaron Kelseyson 02/22/21 Ivette 38 live - full term 6# 8oz Female epidural [facility] [place] Delivery Date: 08/24/19 Last Updated [...] -???-???-???-???-???-???- ???-???-???-???-?? (more content not included)... Normal [facility] PAP IG HPV APTIMA 16/18,45on 07-04-2024 ORDER Normal [facility] Comment on above: Order Comment: Clini ximena Info: Collection Vial: Thin Prep VialGYN Source: CERVICALDate LMP/Menopause: LMPDate: Place date of last LMP if known 03/30/24Collection Techniques: CX BROOM ONLY Result Comment: IGP, [...] image guided system. Performed by Domingo Solis, Journeyman Level Acoustic Analyst (ASCP) This nucleic acid amplification test detects fourteen high-risk HPV types (16,18,31,33,35,39,45,51,52,56,58,59,66,68) without differentiation. HPV RESULTS: HPV Aptima: Negative HPV Genotype Reflex Criteria not met, HPV Genotype not performed. TESTING PERFORMED AT [facility]. ORIGINAL REPORT ON FILE IN LAB CONTAINS ADDITIONAL TEST SITE INFORMATION. Performed By: #### L 100.0500, L501.1400, L501.4405, L501.0900, L501.1105, L501.4100 #### [facility] [address] [place], [address] Chlamydia/GC GISELA aptimaon CHLAMY,NUC ACID Negative [facility] Comment on above: Performed By: #### L 501.0250, L509.8002, BTS, L3890.6006, L100.0100 #### [facility] [address] [place], [address] GC BY NUC ACID Negative [facility] Comment on above: Performed By: #### L 501.0250, L509.8002, BTS, L3890.6006, L100.0100 #### [facility] [address] [place], [address] NATERAon 06-13-2024 NATURA SEE SCANNED REPORT Normal [facility] Comment on above: Performed By: #### L 501.0250, L509.8002, BTS, L3890.6006, L100.0100 #### [facility] [address] [place], [address] Urine Cultureon 06-10-2024 URC Culture exhibits no growth. Normal [facility] Comment on above: Performed By: #### L 501.0250, L509.8002, BTS, L3890.6006, L100.0100 #### [facility] [address] [place], [address] Absolute lymphocyte countOrd ered By: Citlalli Napierjavier on 06-09-2024 Lymphocytes Auto (Unsp spec) [#/Vol] 1.15 10*3/uL 0.83-4.51 [facility] Absolute neutrophil countOrd ered By: Citlallilm Napierjavier on 06-09-2024 Neutrophils (Bld) [#/Vol] 4.6 10*3/uL 2.0-7.7 [facility] Automated lymphocyte count a s percentage of total leukocytesOrdered By: Citlalli Deborah on 06-09-2024 Lymphocytes/100 WBC Auto (Unsp spec) 18.5 % Low 19-41 [facility] Basophil percentageOrdered B y: Citlalli Cabrera on 06-09-2024 Basophils/100 WBC (Bld) 0.5 % 0-1 [facility] CBC W/Diff, Automatedon Absolute Lymph 1.15 X10 3/uL Normal 0.83-4.51 [facility] Comment on above: Performed By: #### L 501.0250, L509.8002, BTS, L3890.6006, L100.0100 #### [facility] [address] [place], [address] Absolute Neut 4.6 X10 3/uL Normal 2.0-7.7 [facility] Comment on above: Performed By: #### L 501.0250, L509.8002, BTS, L3890.6006, L100.0100 #### [facility] [address] [place], [address] Basophils/100 WBC (Bld) 0.5 % Normal 0-1 [facility] Comment on above: Performed By: #### L 501.0250, L509.8002, BTS, L3890.6006, L100.0100 #### [facility] [address] [place], [address] Eosinophils/100 WBC (Bld) 0.6 % Normal 0-5 [facility] Comment on above: Performed By: #### L 501.0250, L509.8002, BTS, L3890.6006, L100.0100 #### [facility] [address] [place], [address] Erythrocyte distribution width (RBC) [Ratio] 11.9 % Normal 11.6-14.6 [facility] Comment on above: Performed By: #### L 501.0250, L509.8002, BTS, L3890.6006, L100.0100 #### [facility] [address] [place], [address] Hematocrit (Bld) [Volume fraction] 43.3 % Normal 37-47 [facility] Comment on above: Performed By: #### L 501.0250, L509.8002, BTS, L3890.6006, L100.0100 #### [facility] [address] [place], [address] Hemoglobin (Bld) [Mass/Vol] 14.6 g/dL Normal 12.0-15.0 [facility] Comment on above: Performed By: #### L 501.0250, L509.8002, BTS, L3890.6006, L100.0100 #### [facility] [address] [place], [address] IG% 0.300 Normal 0.0-0.9 [facility] Comment on above: Result Comment: IG% - Immature Granulocytes (promyelocytes, myelocytes and metamyelocytes) > 1% indicates that a LEFT SHIFT is Present. Performed By: #### L 501.0250, L509.8002, BTS, L3890.6006, L100.0100 #### [facility] [address] [place], [address] Lymphocytes/100 WBC (Bld) 18.5 % Low 19-41 [facility] Comment on above: Performed By: #### L 501.0250, L509.8002, BTS, L3890.6006, L100.0100 #### [facility] [address] [place], [address] MCH (RBC) [Entitic mass] 30.9 pg Normal 27.0-32.0 [facility] Comment on above: Performed By: #### L 501.0250, L509.8002, BTS, L3890.6006, L100.0100 #### [facility] [address] [place], [address] MCHC (RBC) [Mass/Vol] 33.7 g/dL Normal 32-36 [facility] Comment on above: Performed By: #### L 501.0250, L509.8002, BTS, L3890.6006, L100.0100 #### [facility] [address] [place], [address] MCV (RBC) [Entitic vol] 91.7 fL Normal 81-99 [facility] Comment on above: Performed By: #### L 501.0250, L509.8002, BTS, L3890.6006, L100.0100 #### [facility] [address] [place], [address] Monocytes/100 WBC (Bld) 6.7 % Normal 0-10 [facility] Comment on above: Performed By: #### L 501.0250, L509.8002, BTS, L3890.6006, L100.0100 #### [facility] [address] [place], [address] Neutrophils/100 WBC (Bld) 73.4 % High 47-70 [facility] Comment on above: Performed By: #### L 501.0250, L509.8002, BTS, L3890.6006, L100.0100 #### [facility] [address] [place], [address] Nucleated RBC (Bld) [#/Vol] 0 10*3/uL Normal 0-5 [facility] Comment on above: Performed By: #### L 501.0250, L509.8002, BTS, L3890.6006, L100.0100 #### [facility] [address] [place], [address] Platelet mean volume (Bld) [Entitic vol] 12.4 fL High 6.2-12.0 [facility] Comment on above: Performed By: #### L 501.0250, L509.8002, BTS, L3890.6006, L100.0100 #### [facility] [address] [place], [address] Platelets (Bld) [#/Vol] 115 10*3/uL Low 150-450 [facility] Comment on above: Performed By: #### L 501.0250, L509.8002, BTS, L3890.6006, L100.0100 #### [facility] [address] [place], [address] RBC (Bld) [#/Vol] 4.72 10*6/uL Normal 4.2-5.4 [facility] Comment on above: Performed By: #### L 501.0250, L509.8002, BTS, L3890.6006, L100.0100 #### [facility] [address] [place], [address] RDW SD 40.2 fl Normal 35.1-43.9 [facility] Comment on above: Performed By: #### L 501.0250, L509.8002, BTS, L3890.6006, L100.0100 #### [facility] [address] [place], [place], [address] WBC (Bld) [#/Vol] 6.2 10*3/uL Normal 4.4-11.0 [facility] Comment on above: Performed By: #### L 501.0250, L509.8002, BTS, L3890.6006, L100.0100 #### [facility] [address] [place], [address] Cervical or vaginal specimen microscopic examination by liquid based cytology (reportOrdered By: Citlalli Cabrera on 06-09-2024 Cytology report Cyto stain.thin prep Doc (Cvx/Vag) Not Reportable [facility] Chlamydia trachomatis rRNA d etection by probe and target amplification methodOrdered By: Citlalli Cabrera on 06-09-2024 C. trachomatis rRNA GISELA+probe Ql (Unsp spec) Negative [facility] Eosinophil percentageOrdered By: Citlalli Cabrera on 06-09-2024 Eosinophils/100 WBC (Bld) 0.6 % 0-5 [facility] Erythrocyte distribution wid th ratioOrdered By: Citlalli Cabrera on 06-09-2024 Erythrocyte distribution width (RBC) [Ratio] 11.9 % 11.6-14.6 [facility] Erythrocyte distribution wid th standard deviationOrdered By: Citlalli Cabrera on 06-09-2024 Erythrocyte distribution width (RBC) [Ratio] 40.2 fl 35.1-43.9 [facility] HIV - WCHon 06-09-2024 HIV Non-Reactive Normal Nonreactive [facility] Comment on above: Order Comment: Reaso n for Exam: Performed By: #### L 501.0250, L509.8002, BTS, L3890.6006, L100.0100 #### [facility] [address] [place], [address] HIV 1 and HIV-2 antibody ass ay with HIV-1 p24 antigen detectionOrdered By: Citlalli Cabrera on 06-09-2024 HIV 1+2 Ab+HIV1 p24 Ag IA Ql Non-Reactive Nonreactive [facility] Hematocrit Auto (Bld) [Volum e fraction]Ordered By: Citlalli Cabrera on 06-09-2024 Hematocrit (Bld) [Volume fraction] 43.3 % 37-47 [facility] Hemoglobin measurementOrdere d By: Citlalli Cabrera on 06-09-2024 Hemoglobin (Bld) [Mass/Vol] 14.6 g/dL 12.0-15.0 [facility] Hepatitis B Surface Antigeno n 06-09-2024 HEP B Surf Ag Non-Reactive [facility] Comment on above: Order Comment: Reaso n for Exam: Performed By: #### L 501.0250, L509.8002, BTS, L3890.6006, L100.0100 #### [facility] [address] [place], [place], [address] Hepatitis C Antibodyon 06-09 Hepatitis C AB Non-Reactive [facility] Comment on above: Order Comment: Reaso n for Exam: Result Comment: Non Reactive: < 0.8 Equivocal: >/= 0.8 to < 1.0 Reactive: >/= 1.0 The CDC requires that a reactive/equivocal HCV antibody result be sent out for confirmation. HCV Quant by PCR testing. Performed By: #### L 501.0250, L509.8002, BTS, L3890.6006, L100.0100 #### [facility] [address] [facility] [place], [place], [address] Immature granulocytes/100 WB C Auto (Bld)Ordered By: Citlalli Cabrera on 06-09-2024 Immature granulocytes/100 WBC (Bld) 0.300 % 0.0-0.9 [facility] Comment on above: IG% - Immature Granu locytes (promyelocytes, myelocytes and metamyelocytes) > 1% indicates that a LEFT SHIFT is Present. L509.8000on 06-09-2024 Syphilis Abs Non-Reactive Normal [facility] Comment on above: Order Comment: Reaso n for Exam: Performed By: #### L 501.0250, L509.8002, BTS, L3890.6006, L100.0100 #### [facility] [address] [place], [address] MCV (mean corpuscular volume ) determinationOrdered By: Citlalli Cabrera on 06-09-2024 MCV (RBC) [Entitic vol] 91.7 fL 81-99 [facility] Mean corpuscular hemoglobin (MCH) determinationOrdered By: Citlalli Cabrera on 06-09-2024 MCH (RBC) [Entitic mass] 30.9 pg 27.0-32.0 [facility] Mean corpuscular hemoglobin concentration (MCHC) determinationOrdered By: Citlalli Cabrera on 06-09-2024 MCHC (RBC) [Mass/Vol] 33.7 g/dL 32-36 [facility] Mean platelet volume determi nationOrdered By: Citlalli Cabrera on 06-09-2024 Platelet mean volume (Bld) [Entitic vol] 12.4 fL High 6.2-12.0 [facility] Monocyte percentageOrdered B y: Citlalli Cabrera on 06-09-2024 Monocytes/100 WBC (Bld) 6.7 % 0-10 [facility] NATERAon 06-09-2024 NATURA SEE SCANNED REPORT Normal [facility] Comment on above: Order Comment: This specimen has been REJECTED due to Laboratory criteria:Quanity Not Sufficient.Comments: NIPT with Gender only Result Comment: This specimen has been REJECTED due to Laboratory criteria: Quanity Not Sufficient. Performed By: #### L 501.0250, L509.8002, BTS, L3890.6006, L100.0100 #### [facility] [address] [place], [place], [address] Neisseria gonorrhoeae nuclei c acid detection by amplified probe techniqueOrdered By: Citlalli Cabrera on 06-09-2024 N. gonorrhoeae DNA GISELA+probe Ql (Unsp spec) Negative [facility] Neutrophil percentageOrdered By: Citlalli Cabrera on 06-09-2024 Neutrophils/100 WBC (Bld) 73.4 % High 47-70 [facility] No Panel InformationOrdered By: Citlalli Cabrera on 06-09-2024 Pap Smear Test Ordered See comment [facility] Comment on above: IGP, Aptima HPV, [...] image guided system. Performed by Domingo Solis, Journeyman Level Acoustic Analyst (ASCP) This nucleic acid amplification test detects fourteen high-risk HPV types (16,18,31,33,35,39,45,51,52,56,58,59,66,68) without differentiation.HPV RESULTS: HPV Aptima: Negative HPV Genotype Reflex Criteria not met, HPV Genotype not performed. ____ TESTING PERFORMED AT [facility]. ORIGINAL REPORT ON FILE IN LAB CONTAINS ADDITIONAL TEST SITE INFORMATION. Nucleated red blood cell per centageOrdered By: Citlalli Cabrera on 06-09-2024 Nucleated RBC/100 WBC (Bld) [Ratio] 0 % 0-5 [facility] Logistics Account Manager Office Visit Reporton 06-09-2024 Logistics Account Manager Office Visit Report [facility] [address], [address] [place] [address] OFFICE VISIT Date of Service: 06/09/24 MR#: [id number] Acct: [id number] Name: MARIBEL CROCKETT Rep #: [id number] : 1990 Provider: Dr. Citlalli acuna MD Age/Sex: 34/F Location: [facility] Status: Signed Intake Vital Signs 02/21/21 15:13 06/09/24 10:15 Height 5 ft 7.5 in 5 ft 7.5 in Weight: 121 lb 6 oz BMI 18.7 BP 116/80 Intake Visit Reasons: LMP 03/30/24 MARGO 01/04/25 Administrative And Program Specialist Required: No Is patient in pain?: No [...] No current occupational status: unemployed current occupation: [employer] pets and animals: Yes pets and animals: [...] physical activity do you participate in: none ramesh/mormon: Yarsanism seatbelt use: always do you feel safe at home: Yes 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 OB Visit MARGO Calculator Estimated [...] ???-???-???-???-???-???- 10w (more content not included)... Normal [facility] Platelet countOrdered By: Khoi Cabrera on 06-09-2024 Platelets (Bld) [#/Vol] 115 10*3/uL Low 150-450 [facility] RBC Auto (Bld) [#/Vol]Ordere d By: Citlalli Cabrera on 06-09-2024 RBC (Bld) [#/Vol] 4.72 10*6/uL 4.2-5.4 [facility] Rubella IgGon 06-09-2024 Rubella IgG Reactive Normal Nonreactive [facility] Comment on above: Order Comment: Reaso n for Exam: Result Comment: Anti body Results Interpretation of Immune Status Non Reactive Presumed Non-Immune Equivocal Equivocal Reactive Presumed Immune Performed By: #### L 501.0250, L509.8002, BTS, L3890.6006, L100.0100 #### [facility] [address] [place], [address] Serum Treponema species anti body detectionOrdered By: Citlalli Cabrera on 06-09-2024 Treponema sp Ab Ql (S) Non-Reactive [facility] Type AND Screenon 06-09-2024 ABO and Rh group Nom (Bld) Blood group A Rh(D) positive Normal [facility] Comment on above: Order Comment: PN Performed By: #### L 501.0250, L509.8002, BTS, L3890.6006, L100.0100 #### [facility] [address] [place], [address] Ab SCREEN GEL Negative Normal [facility] Comment on above: Order Comment: PN Performed By: #### L 501.0250, L509.8002, BTS, L3890.6006, L100.0100 #### [facility] [address] [place], [address] Urine cultureOrdered By: Felton Cabrera on 06-09-2024 Bacteria identified Cx Nom (U) Culture exhibits no growth. [facility] White blood cell (WBC) count Ordered By: Citlalli Cabrera on 06-09-2024 WBC (Bld) [#/Vol] 6.2 10*3/uL 4.4-11.0 [facility] Office Visiton 05-19-2022 Follow-up visit Diagnoses/Problems ADD [...] History of Breast augmentation 2014 History of [place] tooth extraction x4, 2010 Social History Caffeine use (V49.89) (Z78.9) Never smoker Occasional alcohol use Allergies No Known Drug Allergies Recorded By: Tonya Kearney; 04/07/2022 3:19:18 PM Current Meds Medication NameInstruction Tretinoin 0.05 % External Cream Vyvanse 30 MG Oral CapsuleTAKE 1 CAPSULE Daily Vitals Vital Signs Recorded: 19May2022 10:07AM Heart Rate94 Wizkjtwm816, LUE, Sitting Uoyfqjcsw31, LUE, Sitting Height5 ft 7.75 in Nqxkqq342 lb 8 oz BMI Vtqdzhaybl01.61 kg/m2 BSA Calculated1.65 Tobacco Useb) No Falls Screening (Age 18+)a) No falls within the last year O2 Ypndgmzllt17 Physical Exam General: Alert and oriented, No acute distress. Respiratory: Lungs are clear to auscultation, Respirations are non-labored, Breath sounds are equal. Cardiovascular: Normal rate, Regular rhythm, No murmur. Integumentary: Warm, Dry. Neurologic: Alert, Oriented, No focal deficits. Psychiatric: Cooperative, Appropriate mood AND affect. Signatures Electronically signed by : Tamika Sandhu MD; May 19 2022 10:30AM EST (Author) Normal [facility] DRUG SCREEN,URINE WITH REFLE X TO CONFIRMATIONon 04-21-2022 AMPHETAMINE SCREEN,U Negative Normal NEGATIVE [facility] Comment on above: Result Comment: CUTO FF LEVEL: 500 NG/ML Cross-reactivity has been reported with high concentrations of the following drugs: buproprion, chloroquine, chlorpromazine, ephedrine, mephentermine, fenfluramine, phentermine, phenylpropanolamine, pseudoephedrine, and propranolol. Performed By: #### D RUGR #### [place] [address] BARBITURATES SCREEN,U Negative Normal NEGATIVE [facility] Comment on above: Result Comment: CUTO FF LEVEL: 200 NG/ML Performed By: #### D RUGR #### [place] [id number] BENZODIAZEPINES SCREEN,U Negative Normal NEGATIVE [facility] Comment on above: Result Comment: CUTO FF LEVEL: 200 NG/ML Performed By: #### D RUGR #### [place] [address] CANNABINOIDS SCREEN,U Negative Normal NEGATIVE [facility] Comment on above: Result Comment: CUTO FF LEVEL: 50 NG/ML Performed By: #### D RUGR #### [place] [address] COCAINE METABOLITE SCREEN,U Negative Normal NEGATIVE [facility] Comment on above: Result Comment: CUTO FF LEVEL: 150 NG/ML Performed By: #### D RUGR #### [place] [address] DRUG SCREEN COMMENT SEE BELOW Normal [facility] Comment on above: Result Comment: Drug screen [...] directors. Performed By: #### D RUGR #### [place] [address] FENTANYL SCREEN,URINE Negative Normal NEGATIVE [facility] Comment on above: Result Comment: CUTO FF LEVEL: 5 NG/ML Performed By: #### D RUGR #### [place] [address] METHADONE SCREEN,U Negative Normal NEGATIVE [facility] Comment on above: Result Comment: CUTO FF LEVEL: 150 NG/ML The metabolite J-xnirw-duaqbrbozqhpmn (LAAM) is not detected by this method in concentrations that would be found in the urine of patients on LAAM therapy. Performed By: #### D RUGR #### [place] [id number] OPIATES SCREEN,U Negative Normal NEGATIVE [facility] Comment on above: Result Comment: CUTO FF LEVEL: 300 NG/ML The opiate screen does not detect fentanyl, meperidine, or tramadol. Oxycodone is not consistently detected (refer to Oxycodone Screen, Urine result). Performed By: #### D RUGR #### [place] [address] OXYCODONE SCREEN,U Negative Normal NEGATIVE [facility] Comment on above: Result Comment: CUTO FF LEVEL: 100 NG/ML This test will accurately detect both oxycodone and oxymorphone. Performed By: #### D RUGR #### [place] [address] PCP SCREEN,U Negative Normal NEGATIVE [facility] Comment on above: Result Comment: CUTO FF LEVEL: 25 NG/ML Cross-reactivity has been reported with dextromethorphan. Performed By: #### D RUGR #### [place] [id number] Laboratory - Drug toxicology on 04-21-2022 Amphetamines Screen Ql (U) Negative NEGATIVE [facility] [...] CUTOFF LEVEL: 150 NG /ML The metabolite D-bnzhf-bcgkerkdshqyix (LAAM) is not detected by this method [...] dextromethorphan. No Panel Informationon 04-21 Negative NEGATIVE [facility] Work Phone: Comment on above: CUTOFF LEVEL: 5 NG/M L SEE BELOW [facility] Work Phone: Comment on above: Drug screen [...] leg, 2006 Surgical History History of Appendectomy 2006 History of Breast augmentation 2014 History of [place] tooth extraction x4, 2010 Social History Caffeine use (V49.89) (Z78.9) Never smoker Occasional alcohol use Allergies No Known Drug Allergies Recorded By: Tonya Kearney; 04/07/2022 3:19:18 PM Vitals Vital Signs Recorded: 01Ihl5714 10:04AM Heart Rate92 Vtpwjliq770, LUE, Sitting Kmkeqcznc87, LUE, Sitting Height5 ft 7.75 in Rcbrut066 lb 9 oz BMI Aqmsnqelzc12.08 kg/m2 BSA Calculated1.67 Tobacco Useb) No Falls Screening (Age 18+)a) No falls within the last year O2 Aipwaieeqw14 Physical Exam General: Alert and oriented, No acute distress. Respiratory: Lungs are clear to auscultation, Respirations are non-labored, Breath sounds are equal. Cardiovascular: Normal rate, Regular rhythm, No murmur. Integumentary: Warm, Dry. Neurologic: Alert, Oriented, No focal deficits. Psychiatric: Cooperative, Appropriate mood AND affect. Results/Data Complete Blood Count + [id number] 10:42AMTamika Sandhu [Apr 20, 2022 9:04AM Tamika Sandhu] appt 04/21 Test NameResultFlagReference White Blood Cell Count4.4 x10E9/L4.4 - 11.3 Red Blood Cell Count4.50 x10E12/LSee Below Reference Range: 4.00 - 5.20 Kvfykcmydp65.8 g/dLSee Below Reference Range: 12.0 - 16.0 HCT42.9 %See Below Reference Range: 36.0 - 46.0 MCV95 fL80 - 100 MCHC32.2 g/dLSee Below Reference Range: 32.0 - 36.0 Platelet Gppva794 x10E9/LL150 - 450 RDW-CV11.8 %See Below Reference [...] Reference Range: 0.00 - 0.10 Comprehensive Metabolic [id number] 10:42Tamika Johnston [Apr 20, 2022 9:04AM Tamika Sandhu] appt 04/21 Test NameResultFlagReference Glucose, Serum73 mg/dLL74 - 99 Sodium, Zysio756 mmol/L136 - 145 POTASSIUM3.6 mmol/L3.5 - 5.3 Chloride, Eonwc217 mmol/L98 - 107 Bicarbonate, Serum28 mmol/L21 - 32 Anion Gap, Serum13 mmol/L10 - 20 Blood Urea Nitrogen, Serum11 mg/dL6 - 23 CREATININE0.76 mg/dLSee Below Reference Range: 0.50 - 1.05 Calcium, Serum9.3 mg/dL8.6 - 10.3 Albumin, Serum4.5 g/dL3.4 - 5.0 ALKALINE [id number] U/L33 - 110 Protein, Total Serum6.7 g/dL6.4 - 8.2 Bilirubin, Serum Total0.6 mg/dL0.0 - 1.2 ALT (SGPT), Serum17 U/L7 - 45 Patients treated with Sulfasalazine may generate falsely decreased results for ALT. GFR FEMALE>90 mL/min/1.73m2>90 CALCULATIONS OF ESTIMATED GFR ARE PERFORMED USING THE 2020 CKD-EPI STUDY REFIT EQUATION WITHOUT THE RACE VARIABLE FOR THE IDMS-TRACEABLE CREATININE METHODS. https://jasn.asnjournals. org/content/early//ASN.0514187927 AST22 U/L9 - 39 Lipid Zkymh42Fsa8216 10:42Tr [place] [Apr 20, 2022 9:04AM Tamika Sandhu] appt 04/21 Test NameResultFlagReference Cholesterol, Otihw649 mg/dL0 - 199 . AGE DESIRABLE BORDERLINE HIGH HIGH 0-19 Y 0 - 169 170 - 199 >/= 200 20-24 Y 0 - 189 190 - 224 >/= 225 >24 Y 0 - 199 200 - 239 >/= 240 All ranges are based on fasting samples. Specific therapeutic targets will vary based on patient-specific cardiac r (more content not included)... Normal [facility] Tobacco Screening.on 022 Fall risk assessment a) No falls within the last year [facility] Work Phone: Tobacco use status CPHS b) No [facility] Work Phone: CBC AND DIFFERENTIALon 04-09 % AUTOMATED IMMATURE GRAN 0.2 % Normal 0.0 - 0.9 [facility] Comment on above: Result Comment: Shala ture Granulocyte Count (IG) includes promyelocytes, myelocytes and metamyelocytes but does not include bands. Percent differential counts (%) should be interpreted in the context of the absolute cell counts (cells/L). Performed By: #### C BCDF #### [address] [address] Basophils (Bld) [#/Vol] 0.02 10*3/uL Normal 0.00 - 0.10 [facility] Comment on above: Performed By: #### C BCDF #### [address] [address] Basophils/100 WBC (Bld) 0.5 % Normal 0.0 - 2.0 [facility] Comment on above: Performed By: #### C BCDF #### [address] [address] Eosinophils (Bld) [#/Vol] 0.06 10*3/uL Normal 0.00 - 0.70 [facility] Comment on above: Performed By: #### C BCDF #### [address] [address] Eosinophils/100 WBC (Bld) 1.4 % Normal 0.0 - 6.0 [facility] Comment on above: Performed By: #### C BCDF #### [address] [address] Erythrocyte distribution width (RBC) [Ratio] 11.8 % Normal 11.5 - 14.5 [facility] Comment on above: Performed By: #### C BCDF #### [address] [address] Hematocrit (Bld) [Volume fraction] 42.9 % Normal 36.0 - 46.0 [facility] Comment on above: Performed By: #### C BCDF #### [address] [address] Hemoglobin (Bld) [Mass/Vol] 13.8 g/dL Normal 12.0 - 16.0 [facility] Comment on above: Performed By: #### C BCDF #### [address] [address] Lymphocytes (Bld) [#/Vol] 1.66 10*3/uL Normal 1.20 - 4.80 [facility] Comment on above: Performed By: #### C BCDF #### [address] [address] Lymphocytes/100 WBC (Bld) 37.7 % Normal 13.0 - 44.0 [facility] Comment on above: Performed By: #### C BCDF #### [address] [address] MCHC (RBC) [Mass/Vol] 32.2 g/dL Normal 32.0 - 36.0 [facility] Comment on above: Performed By: #### C BCDF #### [address] [address] MCV (RBC) [Entitic vol] 95 fL Normal 80 - 100 [facility] Comment on above: Performed By: #### C BCDF #### [address] [address] Monocytes (Bld) [#/Vol] 0.33 10*3/uL Normal 0.10 - 1.00 [facility] Comment on above: Performed By: #### C BCDF #### [address] [address] Monocytes/100 WBC (Bld) 7.5 % Normal 2.0 - 10.0 [facility] Comment on above: Performed By: #### C BCDF #### [address] [address] Neutrophils (Bld) [#/Vol] 2.32 10*3/uL Normal 1.20 - 7.70 [facility] Comment on above: Result Comment: Perc ent differential counts (%) should be interpreted in the context of the absolute cell counts (cells/L). Performed By: #### C BCDF #### [address] [address] Neutrophils/100 WBC (Bld) 52.7 % Normal 40.0 - 80.0 [facility] Comment on above: Performed By: #### C BCDF #### [address] [address] Platelets (Bld) [#/Vol] 130 10*3/uL Low 150 - 450 [facility] Comment on above: Performed By: #### C BCDF #### [address] [address] RBC 4.50 x10E12/L Normal 4.00 - 5.20 [facility] Comment on above: Performed By: #### C BCDF #### [address] [address] WBC (Bld) [#/Vol] 4.4 10*3/uL Normal 4.4 - 11.3 [facility] Comment on above: Performed By: #### C BCDF #### [address] [address] COMPREHENSIVE PANELon 2021 Albumin [Mass/Vol] 4.5 g/dL Normal 3.4 - 5.0 [facility] Comment on above: Performed By: #### C MP #### [address] [address] ALP [Catalytic activity/Vol] 44 U/L Normal 33 - 110 [facility] Comment on above: Performed By: #### C MP #### [address] [address] ALT [Catalytic activity/Vol] 17 U/L Normal 7 - 45 [facility] Comment on above: Result Comment: Annalisa ents treated with Sulfasalazine may generate falsely decreased results for ALT. Performed By: #### C MP #### [address] [address] Anion gap [Moles/Vol] 13 mmol/L Normal 10 - 20 [facility] Comment on above: Performed By: #### C MP #### [address] [address] AST [Catalytic activity/Vol] 22 U/L Normal 9 - 39 [facility] Comment on above: Performed By: #### C MP #### [address] [address] Bilirubin [Mass/Vol] 0.6 mg/dL Normal 0.0 - 1.2 [facility] Comment on above: Performed By: #### C MP #### [address] [address] Calcium [Mass/Vol] 9.3 mg/dL Normal 8.6 - 10.3 [facility] Comment on above: Performed By: #### C MP #### [address] [address] Chloride [Moles/Vol] 103 mmol/L Normal 98 - 107 [facility] Comment on above: Performed By: #### C MP #### [address] [address] Creatinine [Mass/Vol] 0.76 mg/dL Normal 0.50 - 1.05 [facility] Comment on above: Performed By: #### C MP #### [address] [address] eGFR FEMALE >90 Normal >90 [facility] Comment on above: Result Comment: CALC ULATIONS OF ESTIMATED GFR ARE PERFORMED USING THE 2020 CKD-EPI STUDY REFIT EQUATION WITHOUT THE RACE VARIABLE FOR THE IDMS-TRACEABLE CREATININE METHODS. https://jasn.asnjournals.org/content/early//ASN.61758 55004 Performed By: #### C MP #### [address] [address] Glucose [Mass/Vol] 73 mg/dL Low 74 - 99 [facility] Comment on above: Performed By: #### C MP #### [address] [address] HCO3 (Bld) [Moles/Vol] 28 mmol/L Normal 21 - 32 [facility] Comment on above: Performed By: #### C MP #### [address] [address] Potassium [Moles/Vol] 3.6 mmol/L Normal 3.5 - 5.3 [facility] Comment on above: Performed By: #### C MP #### [address] [address] Protein [Mass/Vol] 6.7 g/dL Normal 6.4 - 8.2 [facility] Comment on above: Performed By: #### C MP #### [address] [address] Sodium [Moles/Vol] 140 mmol/L Normal 136 - 145 [facility] Comment on above: Performed By: #### C MP #### [address] [address] Urea nitrogen [Mass/Vol] 11 mg/dL Normal 6 - 23 [facility] Comment on above: Performed By: #### C MP #### [address] [address] Complete Blood Count + Diffe rentialon 04-09-2022 Basophils/100 WBC (Bld) 0.5 % 0.0 - 2.0 [facility] Work Phone: Erythrocyte distribution width (RBC) [Ratio] 11.8 % See Below -[facility] Work Phone: Comment on above: Reference Range: 11. 5 - 14.5 Hematocrit (Bld) [Volume fraction] 42.9 % See Below [facility] Work Phone: Comment on above: Reference Range: 36. 0 - 46.0 Hemoglobin (Bld) [Mass/Vol] 13.8 g/dL See Below -[facility] Work Phone: Comment on above: Reference Range: 12. 0 - 16.0 Lymphocytes/100 WBC (Bld) 37.7 % See Below -[facility] Work Phone: [...] (Bld) [#/Vol] 4.4 10*3/uL 4.4 - 11.3 [facility] Work Phone: Complete Blood Count + Differential 0.02 {x10E9/L} See Below [facility] Work Phone: Comment on above: Reference Range: 0.0 0 - 0.10 Complete Blood Count + Differential 0.06 {x10E9/L} See Below [facility] Work Phone: Comment on above: Reference Range: 0.0 0 - 0.70 Complete Blood Count + Differential 0.33 {x10E9/L} See Below [facility] Work Phone: Comment on above: Reference Range: 0.1 0 - 1.00 Complete Blood Count + Differential 1.66 {x10E9/L} See Below [facility] Work Phone: Comment on above: Reference Range: 1.2 0 - 4.80 Complete Blood Count + Differential 2.32 {x10E9/L} See Below [facility] Work Phone: Comment on above: Reference Range: 1.2 0 - 7.70 Percent differential counts (%) should be interpreted in the context of the absolute cell counts (cells/L). Complete Blood Count + Differential 1.4 % 0.0 - 6.0 [facility] Work Phone: Complete Blood Count + Differential 0.2 % 0.0 - 0.9 [facility] Work Phone: Comment on above: Immature Granulocyte Count (IG) includes promyelocytes, myelocytes and metamyelocytes but does not include bands. Percent differential counts (%) should be interpreted in the context of the absolute cell counts (cells/L). LIPID PANEL (CORONARY RISK 2 )on 04-09-2022 Cholesterol [Mass/Vol] 161 mg/dL Normal 0 - 199 [facility] Comment on above: Result Comment: . AGE [...] dosing. Performed By: #### L IPID #### [address] [address] Cholesterol in HDL [Mass/Vol] 93.0 mg/dL Normal [facility] Comment on above: Result Comment: . AGE VERY LOW LOW NORMAL HIGH 0-19 Y < 35 < 40 40-45 ---- 20-24 Y ---- < 40 >45 ---- >24 Y ---- < 40 40-60 >60 . Performed By: #### L IPID #### [address] [address] Cholesterol in LDL [Mass/Vol] 47 mg/dL Normal 0 - 99 [facility] Comment on above: Result Comment: . NEAR BORD AGE DESIRABLE OPTIMAL HIGH HIGH VERY HIGH 0-19 Y 0 - 109 --- 110-129 >/= 130 ---- 20-24 Y 0 - 119 --- 120-159 >/= 160 ---- >24 Y 0 - 99 100-129 130-159 160-189 >/=190 . Performed By: #### L IPID #### [address] [address] Cholesterol in VLDL [Mass/Vol] 21 mg/dL Normal 0 - 40 [facility] Comment on above: Performed By: #### L IPID #### [address] [address] Cholesterol.total/Chol esterol in HDL [Mass ratio] 1.7 {ratio} Normal [facility] Comment on above: Result Comment: REF VALUES DESIRABLE < 3.4 HIGH RISK > 5.0 Performed By: #### L IPID #### [address] [address] Triglyceride [Mass/Vol] 104 mg/dL Normal 0 - 149 [facility] Comment on above: Result Comment: . AGE [...] dosing. Performed By: #### L IPID #### [facility] [address] [place] [address] Laboratory - Chemistry and C hemistry - [...] Phone: Creatinine [Mass/Vol] 0.76 mg/dL See Below [facility] Work Phone: Comment on above: Reference Range: 0.5 0 - 1.05 Glucose [Mass/Vol] 73 mg/dL below low threshold 74 - 99 [facility] Work Phone: Potassium [Moles/Vol] 3.6 mmol/L 3.5 - 5.3 [facility] Work Phone: Protein [Mass/Vol] 6.7 g/dL 6.4 - 8.2 -[facility] Work Phone: Sodium [Moles/Vol] 140 mmol/L 136 - 145 -[facility] Work Phone: TSH Qn 1.39 m[IU]/L See Below [facility] Work Phone: Comment on above: Reference Range: 0.4 4 - 3.98 TSH testing is performed using different testing methodology at [facility] than at other [facility]. Direct result comparisons should only be made within the same method. Urea nitrogen [Mass/Vol] 11 mg/dL 6 - 23 -[facility] Work Phone: Lipid Panelon 04-09-2022 Cholesterol [Mass/Vol] 161 mg/dL 0 - 199 [facility] Work Phone: Comment [...] guidelines reference: NCEP ATPIII Guidelines, ED 2001, 258:2486-97. Venipuncture immediately after or during the administration of Metamizole may lead to falsely low results. Testing should be performed immediately prior to Metamizole dosing. Cholesterol in HDL [Mass/Vol] 93.0 mg/dL [employer] Work Phone: Comment on above: . AGE VERY LOW LOW N ORMAL HIGH 0-19 Y < 35 < 40 40-45 ---- 20-24 Y ---- < 40 >45 ---- >24 Y ---- < 40 40-60 >60. Cholesterol in LDL [Mass/Vol] 47 mg/dL 0 - 99 [facility] [employer] Work Phone: Comment on above: . NEAR BORD AGE ISABEL RABLE OPTIMAL HIGH HIGH VERY HIGH 0-19 Y 0 - 109 --- 110-129 >/= 130 ---- 20-24 Y 0 - 119 --- 120-159 >/= 160 ---- >24 Y 0 - 99 100-129 130-159 160-189 >/=190. Cholesterol.total/Chol esterol in HDL [Mass ratio] 1.7 {ratio} [email or web address] Work Phone: Comment on above: REF VALUESDESIRABLE < 3.4HIGH RISK > 5.0 Triglyceride [Mass/Vol] 104 mg/dL 0 - 149 [employer] [employer] Work Phone: Comment on above: . AGE [...] Lipid Panel 21 mg/dL 0 - 40 [facility] Work Phone: No Panel Informationon 04-09 >90 >90 [employer] [facility] Work Phone: Comment on above: CALCULATIONS OF TIFFANY MATED GFR ARE PERFORMED USING THE 2020 CKD-EPI STUDY REFIT EQUATION WITHOUT THE RACE VARIABLE FOR THE IDMS-TRACEABLE CREATININE METHODS.https://jasn.asnjournals.org/content//A SN.4874578251 TSH WITH REFLEX TO FREE T4 I F ABNORMALon 04-09-2022 TSH Qn 1.39 m[IU]/L Normal 0.44 - 3.98 [facility] Comment on above: Result Comment: TSH testing is performed using different testing methodology at [facility] than at other [facility]. Direct result comparisons should only be made within the same method. Performed By: #### T HYDS #### [address] [address] VITAMIN B12on 04-09-2022 Cobalamin (Vitamin B12) [Mass/Vol] 474 pg/mL Normal 211 - 911 [facility] Comment on above: Performed By: #### V TB12 #### [address] [address] Vitamin B12, Serumon 022 Cobalamin (Vitamin B12) [Mass/Vol] 474 pg/mL 211 - 911 [facility] Work Phone: Office Visiton 04-07-2022 Follow-up visit Diagnoses/Problems Encounter for preventive health examination (V70.0) (Z00.00) ADD (attention deficit disorder) (314.00) (F98.8) Orders ADD (attention deficit disorder), Health Maintenance Complete Blood Count + Differential; Status:Active; Requested for:[id number]; Comprehensive Metabolic Panel; Status:Active; Requested for:[id number]; Drug Screen, Urine With Reflex To Confirmation; Status:Active; Requested for:[id number]; Lipid Panel; Status:Active; Requested for:[id number]; TSH WITH REFLEX TO FREE T4 IF ABNORMAL; Status:Active; Requested for:[id number]; Vitamin B12, Serum; Status:Active; Requested for:[id number]; SocHx: Never smoker Tobacco Use Screening; Status:Complete; Done: [id number] Provider Impressions Will check some labs/urine, get her old records. F/u in 2 weeks and we will consider starting medication at that time. 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 She was seen in [place] for it in the past. She is [...] leg, 2006 Surgical History History of Appendectomy 2006 History of Breast augmentation 2014 History of [place] tooth extraction x4, 2010 Social History Caffeine use (V49.89) (Z78.9) Never smoker Occasional alcohol use Allergies No Known Drug Allergies Recorded By: Tonya Kearney; 04/07/2022 3:19:18 PM Vitals Vital Signs Recorded: 89Msr1020 03:16PM Heart Rate82 Kdbhehaq401, LUE, Sitting Qlowhscfe06, LUE, Sitting Height5 ft 7.75 in Wgoxft324 lb 8 oz BMI Kvzfrpkthz57.76 kg/m2 BSA Calculated1.66 Tobacco Useb) No Falls Screening (Age 18+)a) No falls within the last year O2 Ouuwboflhh70 Physical Exam General: Alert and oriented, No acute distress. Respiratory: Lungs are clear to auscultation, Respirations are non-labored, Breath sounds are equal. Cardiovascular: Normal rate, Regular rhythm, No murmur. Integumentary: Warm, Dry. Neurologic: Alert, Oriented, No focal deficits. Psychiatric: Cooperative, Appropriate mood AND affect. Signatures Electronically signed by : Tamika Sandhu MD; Apr 07 2022 5:07PM EST (Author) Normal [facility] Tobacco Screening.on 022 Fall risk assessment a) No falls within the last year [facility] Work Phone: Tobacco use status CPHS b) No [facility] Work Phone: CT PULMONARY ARTERIESon 08-0 CT PULMONARY ARTERIES EXAMINATION: CT PULMONARY ARTERIES [...] WedDec 02, 2021 6:10:33 PM EDT [facility] Comment on above: Order Comment: Injur y/Trauma [...] is unremarkable. IMPRESSION: No acute cardiopulmonary process. [employer] Workstation ID: [id number] Dictated by: REBECCA KIRK on WedDec 02, 2021 4:57:59 PM EDT Transcribed by: KORINA JENNINGS on WedDec 02, 2021 5:09:44 PM EDT Finalized by: REBECCA KIRK on WedDec 02, 2021 7:16:44 PM EDT [facility] Comment on above: Order Comment: Injur y/Trauma or Illness?:Illness/Other How long have you had these symptoms (acute/chronic)?:Acute Reason for exam?:chest pain History of cancer?:unk Surgeries, chemotherapy, or radiation?:breast implants Type of Exam?:Initial Additional signs and symptoms?:chest pain CNTHERAPYon 01-03-2021 CNTHERAPY OT/PT/Speech Visit ( PTWS) ----- MARIBEL CROCKETT ([id number]) 1990 F Date Time Provider Department 01/03/21 7:30 AM TREVOR MIRELES Date Time Provider Department [place] 01/03/2021 7:30 AM [id number] MIRELES Mohit Escalona Reason for Visit: PT Eval [747] [...] Mireles PT 03/04/2021 11:23 AM Addendum 03/04/2021 [facility] PHYSICAL THERAPY DISCONTINUANCE [...] of Care: created on 01/03/21 through 03/04/21 Power in home exercise program. Patient will demonstrate [...] to baseline. Patient Goals: improve pelvic pressure, know how to relax pelvic muscles for delivery Planned Interventions, Frequency, and Duration: Current Frequency: 1x/week Duration: 3 weeks (reassess at 3 weeks and progress as indicated) Total Number of Visits Planned: 3 Planned Treatment Interventions: Therapeutic exercise (67501);Manual therapy (82295);Self-retirement management (47407);Patient/Family/Ca regiver Education PLAN FOR NEXT VISIT: progress [...] a bulge in vaginal canal. 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 Pt reports wearing belly belt, which helps with pressure. Patient Goals: improve pelvic pressure, know how to relax pelvic muscles for delivery Functional Limitations: standing;walking;lifting Prior Level of Function: [...] the general (more content not included)... Normal [facility] G[facility]ia Prolactin Lvlon 11-03-2017 Protein mass conc 14.3 ng/mL Normal [facility] Comment on above: Result Comment: Male 4.0 - 15.2 Female 4.8 - 23.3Performed At: [facility] CenterIvypsm[address] [place], [place] [id number] Vincent PhD Ph:[phone] Performed By: #### 1 [id number] ####IBRAHIMA Monsalve [address] [place] [address] Auto Diffon 11-02-2017 Basophils Auto #/vol (Bld) 0.0 E3/mcL Normal 0.0-0.2 [facility] Comment on above: Order Comment: Order Added by Discern Expert. Performed By: #### 2 [id number] ####IBRAHIMA AljXhqs[address] [place] [address] Basophils/100 WBC Auto (Bld) 0.3 % Normal 0.0-2.0 [facility] Comment on above: Order Comment: Order Added by Discern Expert. Performed By: #### 2 [id number] ####IBRAHIMAKadeem PageXxiIywl[address]100 [place] [address] Eos Absolute 0.1 E3/mcL Normal 0.0-0.7 [facility] Comment on above: Order Comment: Order Added by Discern Expert. Performed By: #### 2 [id number] ####IBRAHIMAKadeem PagePoeBiji[address]190 [place] [address] Eosinophils/100 WBC Auto (Bld) 1.2 % Normal 0.0-11.0 [facility] Comment on above: Order Comment: Order Added by Discern Expert. Performed By: #### 2 [id number] ####IBRAHIMA QfaKsqz[address]20 [place] [address] Lymphocytes Auto #/vol (Bld) 2.0 E3/mcL Normal 1.2-3.4 [facility] Comment on above: Order Comment: Order Added by Discern Expert. Performed By: #### 2 [id number] ####IBRAHIMAKadeem PageEgvPhgv8517 [place] [address] Lymphocytes/100 WBC Auto (Bld) 33.9 % Normal 20.0-55.0 [facility] Comment on above: Order Comment: Order Added by Discern Expert. Performed By: #### 2 [id number] ####IBRAHIMA PageIxvSfbs[address]41 [place] [address] O'Brien Absolute 0.4 E3/mcL Normal 0.0-0.7 [facility] Comment on above: Order Comment: Order Added by Discern Expert. Performed By: #### 2 [id number] ####IBRAHIMA Hao[address] [place] [address] Monocytes/100 WBC Auto (Bld) 7.1 % Normal 0.0-10.0 [facility] Comment on above: Order Comment: Order Added by Discern Expert. Performed By: #### 2 [id number] ####IBRAHIMA [address]ao[address] [place] [address] Neutro Absolute 3.3 E3/mcL Normal 1.4-6.5 [facility] Comment on above: Order Comment: Order Added by Discern Expert. Performed By: #### 2 [id number] ####IBRAHIMA [address]ao[address] [place] [address] Neutro Auto 57.5 % Normal 37.0-75.0 [facility] Comment on above: Order Comment: Order Added by Discern Expert. Performed By: #### 2 [id number] ####IBRAHIMA Hao[address] [place] [address] CBC w/ Auto Diffon 8 Erythrocyte distribution width Auto Ratio (RBC) 12.4 % Normal 11.5-14.5 [facility] Comment on above: Performed By: #### 2 [id number] ####IBRAHIMA [address]ao[address] [place] [address] Hematocrit Auto Volume Fraction (Bld) 43.8 % Normal 36.0-48.0 [facility] Comment on above: Performed By: #### 2 [id number] ####IBRAHIMA PageFtuKupj[address]85 [place] [address] Hemoglobin mass conc (Bld) 14.5 g/dL Normal 12.0-16.0 [facility] Comment on above: Performed By: #### 2 [id number] ####IBRAHIMA PageOmhLsrn2409 [place] [address] MCH Auto Entitic mass (RBC) 31.0 pg Normal 27.0-31.0 [facility] Comment on above: Performed By: #### 2 161081 ####IBRAHIMA [id number] [place] [address] MCHC Auto mass conc (RBC) 33.2 g/dL Normal 33.0-37.0 [facility] Comment on above: Performed By: #### 2 551208 ####IBRAHIMA PageJsjVejv1639 [place] [address] MCV Auto Entitic volume (RBC) 93.5 fL Normal 78.0-100.0 [facility] Comment on above: Performed By: #### 2 196047 ####IBRAHIMA BjkIyum[address]23 [place] [address] Platelet mean volume Auto Entitic volume (Bld) 10.0 fL Normal 7.4-11.0 [facility] Comment on above: Performed By: #### 2 [id number] ####IBRAHIMA PageCskXcae[address]02 [place] [address] Platelets Auto #/vol (Bld) 158 E3/mcL Normal 130-400 [facility] Comment on above: Performed By: #### 2 [id number] ####IBRAHIMA GehNuhe[address] [place] [address] RBC Auto #/vol (Bld) 4.68 E6/mcL Normal 3.90-5.40 [facility] Comment on above: Performed By: #### 2 [id number] ####IBRAHIMA [id number] [place] [address] WBC Auto #/vol (Bld) 5.8 E3/mcL Normal 3.6-11.0 [facility] Comment on above: Performed By: #### 2 [id number] ####IBRAHIMA [id number] [place] [address] CMPon 11-02-2017 Albumin mass conc 4.1 g/dL Normal 3.2-5.0 [facility] Comment on above: Performed By: #### 2 [id number] ####IBRAHIMA [id number] [place] [address] Albumin/Globulin mass ratio 1.6 {ratio} Normal 1.1-1.9 [facility] Comment on above: Performed By: #### 2 [id number] ####IBRAHIMA PageFvoMipr6357 [place] [address] Alk Phos 46 Int._Unit/L Normal 42-121 [facility] Comment on above: Performed By: #### 2 [id number] ####IBRAHIMA Mathew[address] [place] [address] ALT enzyme act/vol 18 Int._Unit/L Normal 10-40 [facility] Comment on above: Performed By: #### 2 [id number] ####IBRAHIMA Mathew[address] [place] [address] AST enzyme act/vol 24 Int._Unit/L Normal 10-42 [facility] Comment on above: Performed By: #### 2 [id number] ####IBRAHIMA Mathew[address] [place] [address] Bili Total 0.7 mg/dL Normal 0.2-1.0 [facility] Comment on above: Performed By: #### 2 [id number] ####IBRAHIMA Mathew[address]25 [place] [address] Creatinine mass conc 0.7 mg/dL Normal 0.6-1.3 [facility] Comment on above: Performed By: #### 2 [id number] ####IBRAHIMA Mathew1025 [place] [address] Globulin Calculated mass conc (S) 2.6 g/dL Normal 2.0-4.0 [facility] Comment on above: Performed By: #### 2 [id number] ####IBRAHIMA [id number] [place] [address] Protein mass conc 6.7 g/dL Normal 6.4-8.3 [facility] Comment on above: Performed By: #### 2 [id number] ####IBRAHIMA [id number] [place] [address] Urea nitrogen mass conc 6 mg/dL Low 7-18 [facility] Comment on above: Performed By: #### 2 [id number] ####IBRAHIMA OocSyil5760 [place] [address] Urea nitrogen/Creatinine mass ratio 8.6 ratio Normal 5.4-30.0 [facility] Comment on above: Performed By: #### 2 [id number] ####IBRAHIMA [id number] [place] [address] Calcium mass conc 9.5 mg/dL Normal 8.4-10.2 [facility] Comment on above: Performed By: #### 2 [id number] ####IBRAHIMA [id number] [place] [address] Chloride molar conc 105 mmol/L Normal 98-107 [facility] Comment on above: Performed By: #### 2 [id number] ####IBRAHIMA PageBjlRcia4828 [place] [address] CO2 molar conc 27.9 mmol/L Normal 24.0-30.0 [facility] Comment on above: Performed By: #### 2 [id number] ####IBRAHIMA BdjQxts6309 [place] [address] Glucose mass conc 89 mg/dL Normal 70-99 [facility] Comment on above: Performed By: #### 2 [id number] ####IBRAHIMA PageVpwOsqi3900 [place] [address] Potassium molar conc 3.9 mmol/L Normal 3.5-5.1 [facility] Comment on above: Performed By: #### 2 [id number] ####IBRAHIMA [id number] [place] [address] Sodium molar conc 141 mmol/L Normal 136-145 [facility] Comment on above: Performed By: #### 2 [id number] ####IBRAHIMA [id number] [place] [address] Folateon 11-02-2017 Folate Lvl 17.20 ng/mL Normal >=4.00 [facility] Comment on above: Result Comment: The WHO Technical Consultation on folate and vitamin B12 deficiencieshas determined that deficient folate concentrations are considered to beless than 4ng/ml. Performed By: #### 2 [id number] ####IBRAHIMA Xpxhtpns9815 [place] [address] Lipid Profileon 11-02-2017 Cholesterol in HDL mass conc 103 mg/dL Normal >=41 [facility] Comment on above: Performed By: #### 3 [id number] ####IBRAHIMA PageWwoRiwt7981 [place] [address] Cholesterol in LDL mass conc 69 mg/dL Normal 0-130 [facility] Comment on above: Result Comment: <100 [id number] NEAR / ABOVE [id number] BORDERLINE [id number] HIGH>190 VERY HIGHCALC LDL NOT VALID WHEN TRIGLYCERIDE IS >400 MG/DL Performed By: #### 3 [id number] ####IBRAHIMAKadeem PageMtrDjyj5664 [place] [address] Cholesterol in VLDL mass conc 9 mg/dL Normal [facility] Comment on above: Performed By: #### 3 [id number] ####IBRAHIMA [id number] [place] [address] Cholesterol mass conc 181 mg/dL Normal 50-200 [facility] Comment on above: Result Comment: TOTA L CHOLEESTEROL: <200 NORMAL 200 - 239 BORDERLINE HIGH >240 HIGH Performed By: #### 3 [id number] ####IBRAHIMAKadeem PageLcxBtok1977 [place] [address] Triglyceride mass conc 45 mg/dL Normal 35-150 [facility] Comment on above: Result Comment: <150 [id number] BORDERLINE [id number] HIGH>500 VERY HIGH Performed By: #### 3 [id number] ####IBRAHIMA AbwLyxp2256 [place] [address] TSHon 11-02-2017 Thyrotropin Qn 2.77 mIU/m Normal 0.30-5.60 [facility] Comment on above: Performed By: #### 2 [id number] ####IBRAHIMA Egiyblhz2702 [place] [address] Vit B12on 11-02-2017 Cobalamin (Vitamin B12) mass conc 361 pg/mL Normal 180-914 [facility] Comment on above: Performed By: #### 2 [id number] ####IBRAHIMA [id number] [place] [address] Vitamin D 25 Hydroxyon 11-02 Vitamin D 25 Hydroxy 37.0 ng/mL Normal 30.0-100.0 [facility] Comment on above: Performed By: #### 5 [id number] ####IBRAHIMA Hhnklceg7231 [place] [address] eGFRon 11-02-2017 eGFR AA >[address] [facility] Comment on above: Order Comment: Order added by Discern Expert. Performed By: #### 1 [id number] ####IBRAHIMA RlkAzlw2624 [place] [address] GFR/1.73 sq M predicted among non-blacks MDRD vol rate/area (S/P/Bld) mL/min/{1.73_m2} [facility] Comment on above: Order Comment: Order added by Discern Expert. Performed By: #### 1 [id number] ####IBRAHIMA [id number] [place] [address] Vital Signs Date Time Vital Sign Value Performing Clinician Facility 11-30-2024 16:44-0400 Heart rate 89 /min No Primary Care Physician [facility] 11-30-2024 16:44-0400 SaO2% (BldA) [Mass fraction] 97 % No Primary Care Physician [facility] 11-30-2024 16:43-0400 Body temperature 97.8 [degF] No Primary Care Physician [facility] 11-30-2024 16:43-0400 Diastolic blood pressure 63 mm[Hg] No Primary Care Physician [facility] 11-30-2024 16:43-0400 Respiratory rate 16 /min No Primary Care Physician [facility] 11-30-2024 16:43-0400 Systolic blood pressure 99 mm[Hg] No Primary Care Physician [facility] 11-30-2024 16:14-0400 Body height 172.72 cm No Primary Care Physician [facility] 11-30-2024 16:14-0400 Body mass index (BMI) [Ratio] 21.9 kg/m2 No Primary Care Physician [facility] 11-30-2024 16:14-0400 Body weight 65.4 kg No Primary Care Physician [facility] 11-23-2024 15:34-0400 Body height 172.72 cm No Primary Care Physician [facility] 11-23-2024 15:32-0400 Body mass index (BMI) [Ratio] 22.1 kg/m2 No Primary Care Physician [facility] 11-23-2024 15:32-0400 Body weight 65.99 kg No Primary Care Physician [facility] 11-23-2024 15:32-0400 Diastolic blood pressure 64 mm[Hg] No Primary Care Physician [facility] 11-23-2024 15:32-0400 Systolic blood pressure 99 mm[Hg] No Primary Care Physician [facility] 11-21-2024 08:40-0400 Diastolic blood pressure 64 mm[Hg] No Primary Care Physician [facility] 11-21-2024 08:40-0400 Heart rate 91 /min No Primary Care Physician [facility] 11-21-2024 08:40-0400 Systolic blood pressure 99 mm[Hg] No Primary Care Physician [facility] 11-21-2024 08:39-0400 Body temperature 97.7 [degF] No Primary Care Physician [facility] 11-21-2024 08:39-0400 Respiratory rate 16 /min No Primary Care Physician [facility] 11-21-2024 08:39-0400 SaO2% (BldA) [Mass fraction] 95 % No Primary Care Physician [facility] 11-21-2024 08:32-0400 Body height 172.72 cm No Primary Care Physician [facility] 11-21-2024 08:32-0400 Body mass index (BMI) [Ratio] 21.6 kg/m2 No Primary Care Physician [facility] 11-21-2024 08:32-0400 Body weight 64.5 kg No Primary Care Physician [facility] 11-08-2024 15:43-0400 Body height 171.45 cm No Primary Care Physician [facility] 11-08-2024 15:43-0400 Body mass index (BMI) [Ratio] 22.1 kg/m2 No Primary Care Physician [facility] 11-08-2024 15:43-0400 Body weight 64.92 kg No Primary Care Physician [facility] 11-08-2024 15:43-0400 Diastolic blood pressure 64 mm[Hg] No Primary Care Physician [facility] 11-08-2024 15:43-0400 Systolic blood pressure 118 mm[Hg] No Primary Care Physician [facility] 10-23-2024 15:11-0400 Body height 171.45 cm No Primary Care Physician [facility] 10-23-2024 15:11-0400 Body mass index (BMI) [Ratio] 22.2 kg/m2 No Primary Care Physician [facility] 10-23-2024 15:11-0400 Body weight 65.43 kg No Primary Care Physician [facility] 10-23-2024 15:11-0400 Diastolic blood pressure 60 mm[Hg] No Primary Care Physician [facility] 10-23-2024 15:11-0400 Systolic blood pressure 95 mm[Hg] No Primary Care Physician [facility] 10-17-2024 09:36-0400 Body height 171.45 cm No Primary Care Physician [facility] 10-17-2024 09:35-0400 Body mass index (BMI) [Ratio] 21.8 kg/m2 No Primary Care Physician [facility] 10-17-2024 09:35-0400 Body temperature 98.2 [degF] No Primary Care Physician [facility] 10-17-2024 09:35-0400 Body weight 64.21 kg No Primary Care Physician [facility] 10-17-2024 09:35-0400 Diastolic blood pressure 59 mm[Hg] No Primary Care Physician [facility] 10-17-2024 09:35-0400 Heart rate 82 /min No Primary Care Physician [facility] 10-17-2024 09:35-0400 Respiratory rate 18 /min No Primary Care Physician [facility] 10-17-2024 09:35-0400 SaO2% (BldA) [Mass fraction] 98 % No Primary Care Physician [facility] 10-17-2024 09:35-0400 Systolic blood pressure 90 mm[Hg] No Primary Care Physician [facility] 10-04-2024 10:35-0400 Body height 171.45 cm No Primary Care Physician [facility] 10-04-2024 10:35-0400 Body mass index (BMI) [Ratio] 21.4 kg/m2 No Primary Care Physician [facility] 10-04-2024 10:35-0400 Body weight 63.04 kg No Primary Care Physician [facility] 10-04-2024 10:35-0400 Diastolic blood pressure 70 mm[Hg] No Primary Care Physician [facility] 10-04-2024 10:35-0400 Systolic blood pressure 109 mm[Hg] No Primary Care Physician [facility] 10-02-2024 14:24-0400 Body height 171.45 cm No Primary Care Physician [facility] 10-02-2024 14:24-0400 Body mass index (BMI) [Ratio] 21.4 kg/m2 No Primary Care Physician [facility] 10-02-2024 14:24-0400 Body weight 63.16 kg No Primary Care Physician [facility] 10-02-2024 14:24-0400 Diastolic blood pressure 65 mm[Hg] No Primary Care Physician [facility] 10-02-2024 14:24-0400 Systolic blood pressure 96 mm[Hg] No Primary Care Physician [facility] 09-06-2024 14:13-0400 Body mass index (BMI) [Ratio] 20.7 kg/m2 No Primary Care Physician [facility] 09-06-2024 14:13-0400 Body weight 61 kg No Primary Care Physician [facility] 09-06-2024 14:13-0400 Diastolic blood pressure 70 mm[Hg] No Primary Care Physician [facility] 09-06-2024 14:13-0400 Systolic blood pressure 106 mm[Hg] No Primary Care Physician [facility] 08-09-2024 15:05-0400 Body mass index (BMI) [Ratio] 20 kg/m2 No Primary Care Physician [facility] 08-09-2024 15:05-0400 Body weight 58.96 kg No Primary Care Physician [facility] 08-09-2024 15:05-0400 Diastolic blood pressure 65 mm[Hg] No Primary Care Physician [facility] 08-09-2024 15:05-0400 Systolic blood pressure 103 mm[Hg] No Primary Care Physician [facility] 07-14-2024 13:28-0400 Body mass index (BMI) [Ratio] 19.4 kg/m2 No Primary Care Physician [facility] 07-14-2024 13:28-0400 Body weight 57.2 kg No Primary Care Physician [facility] 07-14-2024 13:28-0400 Diastolic blood pressure 75 mm[Hg] No Primary Care Physician [facility] 07-14-2024 13:28-0400 Systolic blood pressure 115 mm[Hg] No Primary Care Physician [facility] 06-09-2024 10:15-0500 Body mass index (BMI) [Ratio] 18.7 kg/m2 No Primary Care Physician [facility] 06-09-2024 10:15-0500 Body weight 55.05 kg No Primary Care Physician [facility] 06-09-2024 10:15-0500 Diastolic blood pressure 80 mm[Hg] No Primary Care Physician [facility] 06-09-2024 10:15-0500 Systolic blood pressure 116 mm[Hg] No Primary Care Physician [facility] 03-28-2024 11:29-0500 Body height 170.2 cm Tamika Sandhu MD Work Phone: [facility] 03-28-2024 11:29-0500 Body mass index (BMI) [Ratio] 18.43 kg/m2 Tamika Sandhu MD Work Phone: [facility] 03-28-2024 11:29-0500 Body weight 53.38 kg Tamika Sandhu MD Work Phone: [facility] 03-28-2024 11:29-0500 Diastolic blood pressure 64 mm[Hg] Tamika Sandhu MD Work Phone: [facility] 03-28-2024 11:29-0500 Heart rate 117 /min Tamika Sandhu MD Work Phone: [facility] 03-28-2024 11:29-0500 SaO2% (BldA) [Mass fraction] 99 % Tamika Sandhu MD Work Phone: [facility] 03-28-2024 11:29-0500 Systolic blood pressure 111 mm[Hg] Tamika Sandhu MD Work Phone: [facility] 12-17-2023 09:04-0400 Body height 170.2 cm Tamika Sandhu MD Work Phone: [facility] 12-17-2023 09:04-0400 Body mass index (BMI) [Ratio] 18.34 kg/m2 Tamika Sandhu MD Work Phone: [facility] 12-17-2023 09:04-0400 Body weight 53.12 kg Tamika Sandhu MD Work Phone: [facility] 12-17-2023 09:04-0400 Diastolic blood pressure 62 mm[Hg] Tamika Sandhu MD Work Phone: [facility] 12-17-2023 09:04-0400 Heart rate 93 /min Tamika Sadnhu MD Work Phone: [facility] 12-17-2023 09:04-0400 SaO2% (BldA) [Mass fraction] 99 % Tamika Sandhu MD Work Phone: [facility] 12-17-2023 09:04-0400 Systolic blood pressure 96 mm[Hg] Tamika Sandhu MD Work Phone: [facility] 06-18-2023 10:53-0500 Body height 170.2 cm Tamika Sandhu MD Work Phone: [facility] 06-18-2023 10:53-0500 Body mass index (BMI) [Ratio] 18.2 kg/m2 Tamika Sandhu MD Work Phone: [facility] 06-18-2023 10:53-0500 Body weight 52.71 kg Tamika Sandhu MD Work Phone: [facility] 06-18-2023 10:53-0500 Diastolic blood pressure 70 mm[Hg] Tamika Sandhu MD Work Phone: [facility] 06-18-2023 10:53-0500 Heart rate 120 /min Tamika Sandhu MD Work Phone: [facility] 06-18-2023 10:53-0500 Systolic blood pressure 108 mm[Hg] Tamika Sandhu MD Work Phone: [facility] 05-07-2023 09:12-0500 Body height 170.2 cm Melissa JENSEN Work Phone: [facility] 05-07-2023 09:12-0500 Body mass index (BMI) [Ratio] 18.01 kg/m2 Melissa Riley [employer] SE[employer]UDY [employer]AD Work Phone: [facility] 05-07-2023 09:12-0500 Body temperature 97.59 [degF] Melissa Riley [employer] SE[employer]ER[employer]STUDY LEAD Work Phone: [facility] 05-07-2023 09:12-0500 Body weight 52.16 kg Melissa Riley [employer] SE[employer]UDY LEAD Work Phone: [phone] [place] [address] 05-07-2023 09:12-0500 Diastolic blood pressure 73 mm[Hg] Melissa Riley [employer] SE[employer]UDY LEAD Work Phone: [facility] 05-07-2023 09:12-0500 Heart rate 112 /min Melissa Riley [employer] SE[employer]UDY LEAD Work Phone: [phone] [place] [address] 05-07-2023 09:12-0500 Respiratory rate 16 /min Melissa Riley [employer] SE[employer]UDY LEAD Work Phone: [facility] 05-07-2023 09:12-0500 SaO2% (BldA) [Mass fraction] 96 % Melissa Riley [employer] SE[employer]UDY LEAD Work Phone: [facility] 05-07-2023 09:12-0500 Systolic blood pressure 110 mm[Hg] Melissa Riley [employer] SE[employer]UDY LEAD Work Phone: [facility] 12-14-2022 09:29-0400 Body height 171.5 cm Tamika Sandhu MD Work Phone: [facility] 12-14-2022 09:29-0400 Body mass index (BMI) [Ratio] 17.9 kg/m2 Tamika Sandhu MD Work Phone: [facility] 12-14-2022 09:290400 Body weight 52.62 kg Tamika Sandhu MD Work Phone: [facility] 12-14-2022 09:29-0400 Diastolic blood pressure 76 mm[Hg] Tamika Sandhu MD Work Phone: [facility] 12-14-2022 09:29-0400 Heart rate 92 /min Tamika Sandhu MD Work Phone: [facility] 12-14-2022 09:29-0400 Systolic blood pressure 116 mm[Hg] Tamika Sandhu MD Work Phone: [facility] 09-01-2022 10:05-0400 Body height 171.5 cm Tamika Sandhu MD Work Phone: [facility] 09-01-2022 10:05-0400 Body mass index (BMI) [Ratio] 17.36 kg/m2 Tamika Sandhu MD Work Phone: [facility] 09-01-2022 10:05-0400 Body weight 51.03 kg Tamika Sandhu MD Work Phone: [facility] 09-01-2022 10:05-0400 Diastolic blood pressure 70 mm[Hg] Tamika Sandhu MD Work Phone: [facility] 09-01-2022 10:05-0400 Heart rate 100 /min Tamika Sandhu MD Work Phone: [facility] 09-01-2022 10:05-0400 SaO2% (BldA) [Mass fraction] 99 % Tamika Sandhu MD Work Phone: [facility] 09-01-2022 10:05-0400 Systolic blood pressure 112 mm[Hg] Tamika Sandhu MD Work Phone: [facility] 04-21-2022 10:04-0500 Body height 172.09 cm Tamika Sandhu Work Phone: [facility] Work Phone: 04-21-2022 10:04-0500 Body mass index (BMI) [Ratio] 19.08 kg/m2 Tamika Sandhu Work Phone: [facility] Work Phone: 04-21-2022 10:04-0500 Body surface area Derived from formula 1.67 m2 Tamika Sandhu Work Phone: [facility] Work Phone: 04-21-2022 10:04-0500 Body weight 56.5 kg Tamika Sandhu Work Phone: [facility] Work Phone: 04-21-2022 10:04-0500 Diastolic blood pressure 68 mm[Hg] Tamika Sandhu Work Phone: [facility] Work Phone: 04-21-2022 10:04-0500 Heart rate 92 /min Tamika Sandhu Work Phone: [facility] Work Phone: 04-21-2022 10:04-0500 SaO2% (BldA) [Mass fraction] 98 % Tamika Sandhu Work Phone: [facility] Work Phone: 04-21-2022 10:04-0500 Systolic blood pressure 100 mm[Hg] Tamika Sandhu Work Phone: [facility] Work Phone: 04-07-2022 15:16-0500 Body height 172.09 cm Tamika Sandhu Work Phone: [facility] Work Phone: 04-07-2022 15:16-0500 Body mass index (BMI) [Ratio] 18.76 kg/m2 Taimka Sandhu Work Phone: [facility] Work Phone: 04-07-2022 15:16-0500 Body surface area Derived from formula 1.66 m2 Tamika Sandhu Work Phone: [facility] Work Phone: 04-07-2022 15:16-0500 Body weight 55.57 kg Tamika Sandhu Work Phone: [facility] Work Phone: 04-07-2022 15:16-0500 Diastolic blood pressure 72 mm[Hg] Tamika Sandhu Work Phone: [facility] Work Phone: 04-07-2022 15:16-0500 Heart rate 82 /min Tamika Sandhu Work Phone: [facility] Work Phone: 04-07-2022 15:16-0500 SaO2% (BldA) [Mass fraction] 97 % Tamika Sandhu Work Phone: [facility] Work Phone: 04-07-2022 15:16-0500 Systolic blood pressure 100 mm[Hg] Tamika Sandhu Work Phone: [facility] Work Phone: Encounters Encounter Date Encounter Type Care Provider Facility Start: 11-30-2024 ambulatory Citlalli Hunt lity:[facility] Start: 11-30-2024 End: 11-30-2024 ambulatory No Primary Care Physician -[facility] Start: 11-30-2024 End: 11-30-[address] Citlalli Cabrera MD -[facility] Work Phone: Start: 11-23-2024 End: 11-23-2024 ambulatory No Primary Care Physician -[facility] Start: 11-23-2024 End: 11-23-[address] Citlalli Cabrera MD -[facility] Work Phone: Start: 11-23-2024 End: 11-23-[address] Citlalli Cabrera MD -[facility] Work Phone: Start: 11-23-2024 End: 11-23-2024 ambulatory No Primary Care Physician -[facility] Start: 11-23-2024 End: 11-23-2024 ambulatory Citlalli Cabrera Facility:[facility] Start: 11-21-2024 ambulatory No Primary Car e Physician Facility:[facility] Start: 11-21-2024 Non-patient / Non-visit Dr. Khoi Cabrera MD -[facility] Start: 11-21-2024 End: 11-21-2024 ambulatory No Primary Care Physician -[facility] Start: 11-21-2024 End: 11-21-[address] Citlalli Cabrera [facility] Work Phone: Start: 11-08-2024 End: 11-08-2024 Patient encounter procedure Kamla CARTAGENA -[facility] Work Phone: Start: 11-08-2024 End: 11-08-2024 ambulatory No Primary Care Physician -[facility] Start: 10-23-2024 End: 10-23-[address] Citlalli Cabrera MD -[facility] Work Phone: Start: 10-23-2024 End: 10-23-2024 ambulatory No Primary Care Physician [facility] Work Phone: Start: 10-17-[address] Samm Colbert MD -[facility] Start: 10-17-2024 ambulatory No Primary Car e Physician Facility:[facility] Start: 10-17-2024 End: 10-17-[address] Samm Colbert MD -[facility] Work Phone: Start: 10-17-2024 End: 10-17-2024 ambulatory No Primary Care Physician [facility] Work Phone: Start: 10-04-2024 End: 10-04-2024 ambulatory No Primary Care Physician [facility] Work Phone: Start: 10-04-2024 End: 10-04-2024 Patient encounter procedure Kamla Oskaloosa [employer] -[facility] Work Phone: Start: 10-04-2024 End: 10-04-2024 Patient encounter procedure Kamla Marce [employer]C -[facility] Work Phone: Start: 10-04-2024 End: 10-04-2024 ambulatory No Primary Care Physician [facility] Work Phone: Start: 10-04-2024 End: 10-04-2024 ambulatory Kamla Zheng Facility:[facility] Start: 10-02-2024 End: 10-02-2024 ambulatory No Primary Care Physician [facility] Work Phone: Start: 10-02-2024 End: 10-02-2024 Patient encounter procedure Kecia Faye CNM -[facility] Work Phone: Start: 10-02-2024 End: 10-02-2024 ambulatory Citlalli Cabrera Facility:[facility] Start: 09-06-2024 End: 09-06-2024 Patient encounter procedure Kamla Marce [employer]C -[facility] Work Phone: Start: 09-06-2024 End: 09-06-2024 ambulatory No Primary Care Physician Facility:[facility] Start: 08-29-2024 End: 08-29-2024 ambulatory NO PRIMARY CARE [facility] Start: 08-15-2024 End: 08-15-2024 ambulatory NO PRIMARY CARE [facility] Start: 08-09-2024 End: 08-09-[address] Citlalli Cabrera MD -[facility] Work Phone: Start: 08-09-2024 End: 08-09-2024 ambulatory No Primary Care Physician Facility:[facility] Start: 07-14-2024 End: 07-14-[address] Rosalba Yang DO -[facility] Work Phone: Start: 07-14-2024 End: 07-14-2024 ambulatory Rosalba Yang Facility:[facility] Start: 06-13-2024 End: 06-13-[address] Citlalli Cabrera MD -[facility] Start: 06-13-2024 End: 06-13-2024 ambulatory Citlalli Cabrera Facility:[facility] Start: 06-09-2024 End: 06-09-[address] Citlalli Cabrera MD -[facility] Work Phone: Start: 06-09-2024 End: 06-09-2024 ambulatory No Primary Care Physician Facility:[facility] Start: 06-09-2024 End: 06-09-2024 ambulatory Citlalli Cabrera Facility:[facility] Start: 03-28-2024 End: 03-28-2024 Office outpatient visit 15 minutes Tamika Sandhu MD Work Phone: [facility] Comment on above: Acute sinusitis, rec urrence not specified, unspecified location (Primary Dx) Start: 03-28-2024 End: 03-28-2024 ambulatory TAMIKA Quan [facility] Start: 12-17-2023 End: 12-17-2023 Office outpatient visit 15 minutes Tamika Sandhu MD Work Phone: [facility] Comment on above: Attention deficit di sorder, unspecified hyperactivity presence Start: 12-17-2023 End: 12-17-2023 ambulatory TAMIKA Quan [facility] Ambulatory Start: 06-18-2023 End: 06-18-2023 ambulatory TAMIKA Quan [facility] Start: 06-18-2023 End: 06-18-2023 Office outpatient visit 25 minutes Tamika Sandhu MD Work Phone: [facility] Comment on above: Acute sinusitis, rec urrence not specified, unspecified location (Primary Dx); Attention deficit disorder, unspecified hyperactivity presence Start: 05-07-2023 End: 05-07-2023 ambulatory TAMIKA SANDHU [facility] Start: 05-07-2023 End: 05-07-2023 Patient encounter procedure Melissa Lin [employer] LEAD Work Phone: [facility] Comment on above: Influenza (Primary D x) Start: 12-14-2022 End: 12-14-2022 Office outpatient visit 15 minutes Tamika Sandhu MD Work Phone: [facility] Comment on above: Attention deficit di sorder, unspecified hyperactivity presence (Primary Dx) Start: 09-01-2022 End: 09-01-2022 Office outpatient visit 15 minutes Tamika Sandhu MD Work Phone: [facility] Comment on above: Attention deficit di sorder, unspecified hyperactivity presence Start: 06-23-2022 AUDIT Tamika plunkett Work Phone: [facility] Work Phone: Start: 05-19-2022 ambulatory Tamika Sandhu Facility:[id number] Start: 04-21-2022 EPV, Provider: Tamika Sandhu, Status: Pen, Time: 10:00 AM Tamika Sandhu Work Phone: [facility] Work Phone: Start: 04-21-2022 Office outpatient vi sit 15 minutes Tamika Sandhu Work Phone: [facility] Work Phone: Start: 04-21-2022 ambulatory Tamika Sandhu Facility:[id number] Start: 04-20-2022 Chart Update Tamika plunkett Work Phone: [facility] Work Phone: Start: 04-07-2022 ambulatory Tamika Julianna Keyvn Facility:[id number] Start: 12-02-2021 End: 12-02-2021 Emergency department patient visit GARDENIA CANELA MCDERMOTT [facility] Start: 11-02-2017 End: 11-03-2017 Patient encounter PA-Eve Marques Facility:[facility] Start: 01-18-2017 End: 01-19-2017 Patient encounter Nodr No Doctor Assigned Facility:[facility] Procedures Date Procedure Procedure Detail Performing Clinician Start: 11-30-2024 Estimated creatinine clearance No Primary Care Physician Start: 11-23-2024 Ultrasound scan for growth No Primary Care Physician Start: 11-21-2024 Urine culture No Primar y Care Physician Start: 11-21-2024 Fibrinogen assay, quantitative No Primary [...] of 2) Zoster Vaccines (1 of 2) [facility] Start: 04-09-2027 Lipid panel Lipid Panel [facility] Start: 11-30-2024 Nonstress test [facility] Start: 11-30-2024 Obstetric monitoring [facility] Start: 11-30-2024 [facility] Start: 11-30-2024 Vital signs measurements [facility] Start: 11-30-2024 Patient discharge [facility] Start: 11-21-2024 Bacteria identified in Urine by Culture Urine Culture [facility] Start: 11-21-2024 End: 11-21-2024 [facility] Start: 11-21-2024 Nonstress test [facility] Start: 11-21-2024 Obstetric monitoring [facility] Start: 11-21-2024 Vital signs measurements [facility] Start: 11-21-2024 Catheterization of vein [facility] Start: 11-21-2024 Patient discharge [facility] Start: 10-17-2024 CBC W Auto Differential panel - Blood [facility] Start: 10-17-2024 Cobalamin (Vitamin B12) [Mass/volume] in Serum or Plasma [facility] Start: 10-17-2024 Comprehensive metabolic 2000 panel - Serum or Plasma [facility] Start: 10-17-2024 Iron and Iron binding capacity panel - Serum or Plasma [facility] Start: 10-17-2024 [facility] Start: 10-17-2024 Ferritin [Mass/volume] in Serum or Plasma [facility] Start: 10-17-2024 Lactate dehydrogenase measurement [facility] Start: 10-04-2024 Bacteria identified in Urine by Culture Urine Culture [facility] Start: 10-04-2024 [facility] Start: 06-23-2024 End: 06-23-[address] [facility] Start: 01-02-2024 COVID-19 Vaccine ( season) COVID-19 Vaccine ( season) [facility] Start: 01-02-2024 Influenza vaccination Influenza Vaccine (#1) [facility] Start: 12-17-2023 End: 12-17-2023 Patient encounter procedure 12/17/2023 9:00 AM EDT Office Visit [address] [phone] Tamika Sandhu MD [address] [place] [address] [place] [address] [facility] Start: 06-14-2023 End: 06-14-2023 Patient encounter procedure 06/14/2023 9:20 AM EST Office Visit [address] [id number] Tamika Sandhu MD [address] [facility] [place] [address] [facility] Start: 01-01-2023 COVID-19 Vaccine ( season) COVID-19 Vaccine () [facility] Start: 01-01-2023 Influenza vaccination [facility] Start: 12-03-2022 End: 12-03-2022 Patient encounter procedure 12/03/2022 9:20 AM EDT Office Visit [address] [phone] Tamika Sandhu MD [address] [facility] [place] [address] [facility] Start: 09-01-2022 EPV, Provider: Tamika Sandhu, Status: Pen, Time: 10:00 AM EPV, Provider: Tamika Sandhu, Status: Pen, Time: 10:00 AM [facility] Work Phone: Start: 05-19-2022 EPV, Provider: Tamika Sandhu, Status: Pen, Time: 10:00 AM EPV, Provider: Tamika Sandhu, Status: Pen, Time: 10:00 AM [facility] Work Phone: Start: 01-11-2012 Screening for malignant neoplasm of cervix [facility] Start: 2009 Hepatitis C screening Hepatitis C Screening [facility] Start: 01-11-2004 Varicella vaccination Varicella Vaccines (1 of 2 - 13+ 2-dose series) [facility] Start: 11-14-2003 Varicella vaccination Varicella Vaccines (1 of 2 - 2-dose childhood series) [facility] Start: 10-18-2003 DTaP/Tdap/Td Vaccines (6 - Tdap) DTaP/Tdap/Td Vaccines (6 - Tdap) [facility] Start: 1991 COVID-19 Vaccine (#1) COVID-19 Vaccine (#1) [facility] Start: 1991 HIV screening HIV Screening [facility] Start: 1991 Yearly Adult Physical Yearly Adult Physical [facility] Alanine aminotransfe rase [Enzymatic activity/volume] in Serum or Plasma [facility] Albumin [Mass/volume ] in Serum or Plasma [facility] Alkaline phosphatase [Enzymatic activity/volume] in Serum or Plasma [facility] Anion gap in Serum or Plasma [facility] Bilirubin, total measurement [facility] BUN/Creatinine ratio [facility] Calcium [Mass/volume ] in Serum or Plasma [facility] Carbon dioxide, tota l [Moles/volume] in Central venous blood [facility] Creatinine [Mass/vol ume] in Serum or Plasma [facility] Erythrocyte mean cor puscular volume determination [facility] Erythrocyte mean cor puscular volume determination [facility] Folate [Moles/volume ] in Serum or Plasma [facility] Glucose [Mass/volume ] in Serum or Plasma [facility] Hematocrit [Volume F raction] of Blood [facility] Hematocrit [Volume F raction] of Blood [facility] Hemoglobin [Mass/vol ume] in Blood [facility] Hemoglobin [Mass/vol ume] in Blood [facility] Iron [Mass/mass] in Unspecified specimen [facility] Iron saturation [Mas s Fraction] in Serum or Plasma [facility] Leukocytes [#/volume ] in Blood [facility] Leukocytes [#/volume ] in Blood [facility] Mean corpuscular hem oglobin concentration determination [facility] Mean corpuscular hem oglobin concentration determination [facility] Mean corpuscular hem oglobin determination [facility] Mean corpuscular hem oglobin determination [facility] Measurement of gluco se 2 hours after glucose challenge for glucose tolerance test [facility] Measurement of renal function [facility] Neutrophil count [facility] Neutrophil count [facility] Neutrophil percent differential count [facility] Neutrophil percent differential count [facility] Patient Education Kick Counts ED False Labor OB Triage: Return to Hospital or Notify Physician if you Experience: [facility] Work Phone: Platelets [#/volume] in Blood [facility] Platelets [#/volume] in Blood [facility] Potassium measurement [facility] Red blood cell count [facility] Red blood cell count [facility] Red cell distributio n width determination [facility] Red cell distributio n width determination [facility] Serologic test for syphilis [facility] Serum chloride measurement [facility] Sodium measurement [facility] Total iron binding c apacity measurement [facility] Total protein measurement [facility] Ultrasound scan for growth [facility] Urea nitrogen [Mass/ volume] in Serum or Plasma [facility] Urine culture [facility] Urine culture [facility] Immunizations Immunization Date Immunization Notes Care Provider Fa cilidior 08-17-2019 tetanus toxoid, redu luis diphtheria toxoid, and acellular pertussis vaccine, adsorbed No Primary Care Physician [facility] 10-08-2006 meningococcal polysaccharide (groups A, C, Y and W-135) diphtheria toxoid conjugate vaccine (MCV4P) [facility] [place] Work Phone: [facility] Work Phone: 10-17-2003 measles, mumps and rubella virus vaccine [facility] [place] Work Phone: [facility] Work Phone: 10-17-2003 TD(adult) unspecifie d formulation [facility] [place] Work Phone: [facility] Work Phone: 08-10-1996 diphtheria, tetanus toxoids and pertussis vaccine [facility] [place] Work Phone: [facility] Work Phone: 08-10-1996 trivalent poliovirus vaccine, live, oral [facility] [place] Work Phone: [facility] Work Phone: 07-27-1995 hepatitis B vaccine, pediatric or pediatric/adolescent dosage [facility] [place] Work Phone: [facility] Work Phone: 02-23-1995 hepatitis B vaccine, pediatric or pediatric/adolescent dosage [facility] [place] Work Phone: [facility] Work Phone: 01-21-1995 hepatitis B vaccine, pediatric or pediatric/adolescent dosage [facility] [place] Work Phone: [facility] Work Phone: 12-24-1992 diphtheria, tetanus toxoids and pertussis vaccine [facility] [place] Work Phone: [facility] Work Phone: 11-11-1992 haemophilus influenz ae type b vaccine, PRP-T conjugate [facility] [place] Work Phone: [facility] Work Phone: 11-11-1992 measles, mumps and rubella virus vaccine [facility] [place] Work Phone: [facility] Work Phone: 11-11-1992 trivalent poliovirus vaccine, live, oral [facility] [place] Work Phone: [facility] Work Phone: 1991 diphtheria, tetanus toxoids and pertussis vaccine [facility] [place] Work Phone: [facility] Work Phone: 1991 haemophilus influenz ae type b vaccine, PRP-T conjugate [facility] [place] Work Phone: [facility] Work Phone: 1991 diphtheria, tetanus toxoids and pertussis vaccine [facility] [place] Work Phone: [facility] Work Phone: 1991 haemophilus influenz ae type b vaccine, PRP-T conjugate [facility] [place] Work Phone: [facility] Work Phone: 1991 trivalent poliovirus vaccine, live, oral [facility] [place] Work Phone: [facility] Work Phone: 1991 diphtheria, tetanus toxoids and pertussis vaccine [facility] [place] Work Phone: [facility] Work Phone: 1991 haemophilus influenz ae type b vaccine, PRP-T conjugate Tamika Quan [facility] Work Phone: [facility] Work Phone: 1991 trivalent poliovirus vaccine, live, oral Tamika Sandhu Work Phone: [facility] Work Phone: Payers Date Payer Category Payer Self-pay 2022 Managed Care (Private) [employer] [id number] 2022 Private Health Insurance [facility] [employer] [id number] 2022-Present [phone] [id number] [place] [id number] 2022 Private Health Insurance [id number] 2021 Unknown [id number] 2017 Unknown 1991 Unknown [id number] 2.16.840.1.753498.3.579. 2.902 1991 Unknown [id number] 2.16.840.1.366925.3.579. 2.356 1991 Unknown [id number] 2.16.840.1.686220.3.579. 2.356 1991 Unknown [id number] 2.16.840.1.243132.3.579. 2.356 1991 Unknown [id number] 2.16.840.1.730675.3.579. 2.1243 1991 Unknown [id number] 2.16.840.1.439485.3.579. 2.1244 1991 Unknown [id number] 2.16.840.1.482652.3.579. 2.1244 1991 Unknown [id number] 2.840.1.191338.3.579. 2.1244 1991 Unknown [id number] 2..840.1.031839.3.579. 2.479 1991 Unknown [id number] 2.840.1.487264.3.579. 2.479 Unknown [id number] 2.840.1.143886.3.579. 2.462 Unknown [id number] 2.840.1.468847.3.579. 2.462 Unknown [id number] 2.840.1.490455.3.579. 2.462 Unknown [id number] 2.840.1.359839.3.579. 2.462 Unknown [id number] 2.840.1.068221.3.579. 2.462 Unknown [id number] 2.840.1.162871.3.579. 2.462 Unknown [id number] 2.840.1.309771.3.579. 2.462 Unknown [id number] 2.840.1.435406.3.579. 2.462 Unknown [id number] 2.16840.1.252000.3.579. 2.462 Unknown [id number] 2.840.1.589146.3.579. 2.462 Unknown [id number] 2.840.1.624330.3.579. 2.462 Unknown [id number] 2.16.840.1.193127.3.579. 2.462 Unknown [id number] 2.16.840.1.068971.3.579. 2.462 Unknown [id number] 2.16.840.1.505007.3.579. 2.462 Unknown [id number] 2.16.840.1.633773.3.579. 2.462 Unknown [id number] 2.16.840.1.570067.3.579. 2.462 Unknown [id number] 2.16.840.1.226909.3.579. 2.462 Unknown [id number] 2.16.840.1.714266.3.579. 2.462 Unknown [id number] 2.16.840.1.751122.3.579. 2.462 Unknown [id number] 2.16.840.1.228747.3.579. 2.462 Social History Date Type Detail Facility Start: 09-01-2022 End: 06-18-2023 Occasional alcohol use Occasional alcohol use [facility] Work Phone: Start: 09-01-2022 End: 10-04-2024 Tobacco smoking status NHIS Never smoked tobacco [facility] Work Phone: Start: 09-01-2022 Tobacco use and exposure Smokeless tobacco non-user [facility] Work Phone: Start: 09-01-2022 End: 12-17-2023 Alcohol intake Current drinker of alcohol (finding) [facility] Work Phone: Start: 1990 Sex Assigned At Not on file [facility] Work Phone: Start: 09-01-2022 End: 06-18-2023 Gender identity Not on file [facility] Work Phone: Start: 08-22-2022 End: 03-28-2024 Exposure to SARS-CoV-2 (event) Not sure [facility] Start: 08-24-2019 Alcohol Alcohol [facility] Start: 1990 Sex Assigned At Female W [facility] Clinical Notes 01-03-2021 to 11-27-2024 Note Date & Type Note Facility 11-27-2024 Radiology Diagnostic study note [facility] Imaging Services [address] [place], [place] [address] OB Limited With Biometrics MR#: [id number] Acct: [id number] Name: MARIBEL CROCKETT Rep #: [id number] : 1990 F 34 From: Rupesh Kaye MD PCP: Care Physician,No Primary Status: REG CLI Study:OB Limited With Biometrics Date of Exam : 11/23/24 Exam# [id number] Ordering Dr: Citlalli Linares MD PROCEDURE: OB LIMITED WITH BIOMETRICS 11/23/2024 REASON FOR EXAM: GROWTH TECHNIQUE: OB LIMITED WITH BIOMETRICS COMPARISON: None FINDINGS Number: 1 Position: Vertex Placental Position: Anterior and not low-lying Placental Abnormalities: No evidence of previa. DIMENSIONS: Biparietal Diameter: 8.3 cm: 33 weeks and 3 days: 29 percentile/ Head Circumference: 32.78 cm: 37 weeks and 2 days: 89 percentile/ Abdominal Circumference: 28.76 cm: 32 weeks and 5 days: 20 percentile/ Femur Length: 6.74 cm: 34 weeks and 5 days: 58 percentile./ ESTIMATED WEIGHT: 2220 g plus/-332 g ESTIMATED WEIGHT PERCENTILE (24+ weeks): 31 ESTIMATED GESTATIONAL AGE: Baseline: 34 weeks and 0 days By Ultrasound: 34 weeks and 6 days ESTIMATED DATE OF DELIVERY: Baseline: January 04, 2025 By Ultrasound: December 29, 2024 BIOPHYSICAL ASSESSMENT: Amniotic Fluid Volume: 3.1 cm Amniotic Fluid Index: 10.2 (8-24 cm normal range) Cardiac Motion: 141 beats per minute (average) Trunk and Limb Motion: Present. MATERNAL ANATOMY: Adnexa: Neither maternal ovary is successfully identified. Cervical Length (if measured): 3.9 cm US/OB Limited With Biometrics IMPRESSION: Single live intrauterine gestation with a mean gestational age of 34 weeks and 6days. Reading Location: [id number] CC: Dr. 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 Jesus Cabrera MD Age/Sex: 34/F Location: [facility] Status: Signed Intake Vital Signs 10/02/24 14:24 11/21/24 08:32 11/23/24 15:32 11/23/24 15:34 Height 5 ft 7.5 in 5 ft 8 in 5 ft 8 in 5 ft 8 in Weight: 145 lb 8 oz BMI 22.1 BP 99/64 Intake Visit Reasons: 34 wk ob Administrative And Program Specialist Required: No Is patient in pain?: No [...] 2 current occupational status: unemployed current occupation: [employer] pets and animals: Yes pets and animals: [...] physical activity do you participate in: none ramesh/mormon: Yarsanism seatbelt use: always do you feel safe at home: Yes 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 Date Name GA/Weeks Outcome Route Bth Weight Infant Gen Labor Lgth Anesthesia Del Locatn Provider FOB 08/24/19 [facility] live - vacuum 6lb 8 oz Female 12 e pidural [facility] Ibis Rush 02/22/21 [place] 38 live - full term 6# 8oz Female epi dural [facility] Nehemias Rush Delivery Date: 08/24/19 Last [...] 150 32 1.5 -?-?-?-?-?-?-?-?-?-?-?-?- SM- seen in [facility] wednesday for contracitons and bleeding, had more [...] Comment: PRR , MARGO 01/04/25,girl PC Eileen, [place] Victor Manuel (7) Hx of delivery by vacuum extraction, currently : Status: Acute Comment: first (8) : Status: Acute Qualifiers: Weeks of gestation: 34 weeks Qualified Code(s): Z3A.34 - 34 weeks gestation of Comment: NIPT low risk, f/u anatomy complete & nl. (9) History of chorioamnionitis: Status: Acute Comment: first Orders: Orders POC Urinalysis 2 Dip (Clinic) Today 11/23/24 1421 <Electronically signed by Citlalli mi MD> Date _ [facility] Signature: Date (if applicable) CC: ~ [facility] Work Phone: 1(810) 739-278206-23-2025 Progress [facility] [address] [place] [address], [address] [place] [id number] OFFICE VISIT Date of Service: 10/23/24 MR#: [id number] Acct: [id number] Name: MARIBEL CROCKETT Rep #: [id number] : 1990 Provider: Dr. Jesus Cabrera MD Age/Sex: 34/F Location: [facility] Status: Signed Intake Vital Signs 08/09/24 15:05 10/17/24 09:36 10/23/24 15:11 Height 5 ft 7.5 in 5 ft 7.5 in Weight: 144 lb 4 oz BMI 22.2 BP 95/60 Intake Visit Reasons: 30wk ob, pessary fitting. 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 Date Name GA/Weeks Outcome Route Bth Weight Gen Labor Lgth A nesthesia Del Locatn Provider FOB 08/24/19 [place] 36 live - vacuum 6lb 8 oz Female 12 e pidural [facility] Ibis Rush 02/22/21 [place] 38 live - full term 6# 8oz Female epi dural [facility] Nehemias Rush Delivery Date: 08/24/19 Last [...] -?-?-?-?-?-?-?-?-?-?-?-?- Negative 155 25 -?-?-?-?-?-?-?-?-?-?-?-?- KW- no vb/cratrinai ng. good fm. glucose today. support belt for pelvic pain. 10/04/24 -?-?-?-?-?-?-?-?-?--?-?-?- 26w 6d 139 lb 109/70 Negative -?-?-?-?-?-?-?-?-?-?-?-?- Negative 148 0 -?-?-?-?-?-?-?-?-?-?-?-?- MH-No VB, LOF. H as vaginal prolapse/see exam [...] MARGO 01/04/25,girl PC Eileen, Ivette Victor Manuel (7) Hx of delivery by vacuum extraction, currently : Status: Acute Comment: first (8) : Status: Acute Qualifiers: Weeks of gestation: 29 weeks Qualified Code(s): Z3A.29 - 29 weeks gestation of Comment: NIPT low risk, f/u anatomy complete & nl. (9) History of chorioamnionitis: Status: Acute Comment: first Orders: Orders POC Urinalysis 2 Dip (Clinic) Today 10/23/24 153Eulalia mi MD> Date _ Citlalli Cabrera MD Cosigner Signature: Date (if applicable) CC: ~ [facility]06-23-2025 Progress note Author Citlalli Cabrera [facility] Note Date/Time October 23, 2024 3:33 pm [facility] [address] [place] [address], [address] [place] [address] OFFICE VISIT Date of Service: 10/23/24 MR#: [id number] Acct: [id number] Name: MARIBEL CROCKETT Rep #: [id number] : 1990 Provider: Dr. Jesus Cabrera MD Age/Sex: 34/F Location: [facility] Status: Signed Intake Vital Signs 08/09/24 15:05 10/17/24 09:36 10/23/24 15:11 Height 5 ft 7.5 in 5 ft 7.5 in Weight: 144 lb 4 oz BMI 22.2 BP 95/60 Intake Visit Reasons: 30wk ob, pessary fitting. 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 Date Name GA/Weeks Outcome Route Bth Weight Gen Labor Lgth A nesthesia Del Locatn Provider FOB 08/24/19 [facility] 36 live - vacuum 6lb 8 oz Female 12 e pidural [facility] Ibis Rush 02/22/21 Ivette 38 live - full term 6# 8oz Female epi dural [facility] Nehemias Rush Delivery Date: 08/24/19 Last [...] MARGO 01/04/25,girl PC Eileen, Ivette Victor Manuel (7) Hx of delivery by [...] mi MD> Date _ Citlalli Cabrera [facility] Signature: Date (if applicable) CC: ~ [facility] Work Phone: 1(372) 434-964906-02-2025 Progress [facility] [address] [place] [address], [address] [place] [address] OFFICE VISIT Date of Service: 10/02/24 MR#: [id number] Acct: [id number] Name: MARIBEL CROCKETT Rep #: : 1990 Provider: LEYLA Faye Age/Sex: 34/F Location: [facility] Status: Signed Intake Vital Signs 08/09/24 15:05 09/06/24 14:13 10/02/24 14:24 Height 5 ft 7.5 in 5 ft 7.5 in 5 ft 7.5 in Weight: 139 lb 4 oz BMI 21.4 BP 96/65 Intake Visit Reasons: 27 WK OB/GLUCOSE Chief Complaint: 27wk OB Administrative And Program Specialist Required: No Is patient in pain?: No [...] 2 current occupational status: unemployed current occupation: [employer] pets and animals: Yes pets and animals: [...] physical activity do you participate in: none ramesh/mormon: Yarsanism seatbelt use: always do you feel safe at home: Yes 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 Date Name GA/Weeks Outcome Route Bth Weight Gen Labor Lgth Anesthesia Del Locatn Provider FOB 08/24/19 [place] 36 live - vacuum 6lb 8 oz Female 12 e pidural [facility] Ibis Rush 02/22/21 [place] 38 live - full term 6# 8oz Female epi dural [facility] Nehemias Rush Delivery Date: 08/24/19 Last [...] second trimester Comment: PRR , MARGO 01/04/25,girl Ivette Beal Victor Manuel (3) Hx of delivery by [...] 10/02/24 1445 s CNM> Date _ Kecia Yunier LEYLA Cosigner Signature: Date (if applicable) CC: ~ [facility]06-02-2025 Progress note Author Kecia Faye [facility] Note Date/Time October 02, 2024 2:45p [facility] [address], [address] [place] [address] OFFICE VISIT Date of Service: 10/02/24 MR#: [id number] Acct: [id number] Name: MARIBEL CROCKETT Rep #: [id number] : 1990 Provider: LEYLA Faye Age/Sex: 34/F Location: [facility] Status: Signed Intake Vital Signs 08/09/24 15:05 09/06/24 14:13 10/02/24 14:24 Height 5 ft 7.5 in 5 ft 7.5 in 5 ft 7.5 in Weight: 139 lb 4 oz BMI 21.4 BP 96/65 Intake Visit Reasons: 27 WK OB/GLUCOSE Chief Complaint: 27wk OB Administrative And Program Specialist Required: No Is patient in pain?: No [...] 2 current occupational status: unemployed current occupation: [employer] pets and animals: Yes pets and animals: [...] physical activity do you participate in: none ramesh/mormon: Yarsanism seatbelt use: always do you feel safe at home: Yes 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 Date Name GA/Weeks Outcome Route Bth Weight Infant Gen Labor Lgth Anesthesia Del Locatn Provider FOB 08/24/19 [place] 36 live - vacuum 6lb 8 oz Female 12 e pidural [facility] Ibis Rush 02/22/21 Ivette 38 live - full term 6# 8oz Female epi dural [facility] Nehemias Rush Delivery Date: 08/24/19 Last [...] fallen in the past year?: No 10/02/24 1143 <Electronically signed by Kecia dillard CNM> Date _ Kecia Faye CNM Cosigner Signature: Date (if applicable) CC: ~ [facility] Work Phone: 1(615) 834-396804-09-2025 Evaluation note* Diagnosis Onset Date Resolution Status [...] of delivery by vacuum extraction, currently acute [facility] 2024 10:31am Hx of delivery, curr ently acute October 04, 2024 1 0:31am acute October 04, 2024 10:31am Supervision of high-risk acute October 04, 2024 1 0:31am UTI in acute October 10:31am Thrombocytopenia affecting chronic October 04, 2024 1 0:31am Nasal septum ulceration acute [facility] 2024 9:06am Thrombocytopenia affecting chronic October 17, 2024 9:06am Cystocele with incomplete uterovaginal prolapse acute October 23, 2024 2:49pm History of chorioamnionitis acute October 23, 2024 2:49pm Hx of delivery by vacuum extraction, currently acute [facility] 2024 2:49pm Hx of delivery, curr ently acute October 23, 2024 2:49pm Nasal septum ulceration acute [facility] 2024 2:49pm acute October 23 2:49pm Supervision of high-risk acute October 23, 2024 2:49pm UTI in acute October 2:49pm Thrombocytopenia affecting chronic October 23, 2024 2:49pm Cystocele with incomplete uterovaginal prolapse acute November 08, 2024 3:37pm History of chorioamnionitis acute November 08, 2024 3:37pm Hx of delivery by vacuum extraction, currently acute [facility] 2024 3:37pm Hx of delivery, curr ently acute November 08, 2024 3 :37pm acute November 08, 2024 3:37pm Supervision of high-risk acute November 08, 2024 3 :37pm UTI in acute October 3:37pm Thrombocytopenia affecting chronic November 08, 2024 3 :37pm [facility] Work Phone: 1(755) 701-626204-09-2025 Evaluation note* Diagnosis Onset Date Resolution Status [...] delivery by vacuum extraction, currently acute [facility] 2024 2:10pm Hx of delivery, curr ently acute October 02, 2024 2 :10pm acute October 02, 2024 2:10pm Supervision of high-risk acute October 02, 2024 2 :10pm Cystocele with incomplete uterovaginal prolapse acute October 04, 2024 10:31am History of chorioamnionitis acute October 04, 2024 10:31am Hx of delivery by vacuum extraction, currently acute [facility] 2024 10:31am Hx of delivery, curr [...] 2024 2:49pm Nasal septum ulceration acute [facility] 2024 2:49pm acute October 23 2:49pm [...] of delivery by vacuum extraction, currently acute [email or web address] 3:15pm Hx of delivery, curr ently acute November 23, 2024 3:15pm Nasal septum ulceration acute [facility] 2024 3:15pm acute November 23 3:15pm Supervision of high-risk acute November 23, 2024 3:15pm UTI in acute October 3:15pm Thrombocytopenia affecting chronic November 23, 2024 3:15pm [facility] Work Phone: 1(178) 898-912004-09-2025 Evaluation note* Diagnosis Onset Date Resolution Status [...] acute M 2024 2:08pm Hx of delivery, curr ently acute September 06, 2024 2: 08pm acute September 06, 2024 2:08pm Supervision of high-risk acute September 06, 2024 2: 08pm History of chorioamnionitis acute October 02, 2024 2:10pm Hx of delivery by vacuum extraction, currently acute J 2024 2:10pm Hx of delivery, curr ently acute October 02, 2024 2 :10pm acute October 02, 2024 2:10pm Supervision of high-risk acute October 02, 2024 2 :10pm Cystocele with incomplete uterovaginal prolapse acute October 04, 2024 10:31am History of chorioamnionitis acute October 04, 2024 10:31am Hx of delivery by vacuum extraction, currently acute [facility] 2024 10:31am Hx of delivery, curr ently acute October 04, 2024 1 0:31am acute October 04, 2024 10:31am Supervision of high-risk acute October 04, 2024 1 0:31am UTI in acute October 10:31am Thrombocytopenia affecting chronic October 04, 2024 1 0:31am Nasal septum ulceration acute [facility] 2024 9:06am Thrombocytopenia affecting chronic October 17, 2024 9:06am Cystocele with incomplete uterovaginal prolapse acute October 23, 2024 2:49pm History of chorioamnionitis acute October 23, 2024 2:49pm Hx of delivery by vacuum extraction, currently acute [facility] 2024 2:49pm Hx of delivery, curr ently acute October 23, 2024 2:49pm Nasal septum ulceration acute [facility] 2024 2:49pm acute October 23 2:49pm Supervision of high-risk acute October 23, 2024 2:49pm UTI in acute October 2:49pm Thrombocytopenia affecting chronic October 23, 2024 2:49pm Cystocele with incomplete uterovaginal prolapse acute November 08, 2024 3:37pm History of chorioamnionitis acute November 08, 2024 3:37pm Hx of delivery by vacuum extraction, currently acute 2024 3:37pm Hx of delivery, curr ently [...] of delivery by vacuum extraction, currently acute [facility] 2024 3:15pm Hx of delivery, curr ently acute November 23, 2024 3:15pm Nasal septum ulceration acute 2024 3:15pm acute November 23 3:15pm Supervision of high-risk acute November 23, 2024 3:15pm UTI in acute October 3:15pm Thrombocytopenia affecting chronic November 23, 2024 3:15pm Cystocele with incomplete uterovaginal prolapse acute November 30, 2024 3:45pm Headache in acute Oct 3:45pm History of chorioamnionitis acute November 30, 2024 3:45pm Hx of delivery by vacuum extraction, currently acute [email or web address] 3:45pm Hx of delivery, curr ently acute November 30, 2024 3:45pm Nasal septum ulceration acute [email or web address] 3:45pm acute November 30 3:45pm Supervision of high-risk acute November 30, 2024 3:45pm UTI in acute October 3:45pm Thrombocytopenia affecting chronic November 30, 2024 3:45pm [facility] Work Phone: 1(930) 382-367903-14-2025 Evaluation note* Diagnosis Onset Date Resolution Status [...] delivery by vacuum extraction, currently acute [facility] 2024 2:10pm Hx of delivery, curr ently acute October 02, 2024 2 :10pm acute October 02, 2024 2:10pm Supervision of high-risk acute October 02, 2024 2 :10pm Cystocele with incomplete uterovaginal prolapse acute October 04, 2024 10:31am History of chorioamnionitis acute October 04, 2024 10:31am Hx of delivery by vacuum extraction, currently acute [facility] 2024 10:31am Hx of delivery, curr ently acute October 04, 2024 1 0:31am acute October 04, 2024 10:31am Supervision of high-risk acute October 04, 2024 1 0:31am UTI in acute October 10:31am Thrombocytopenia affecting chronic October 04, 2024 1 0:31am Nasal septum ulceration acute J une 2024 9:06am Thrombocytopenia affecting chronic October 17, 2024 9:06am [facility] Work Phone: 1(364) 989-681103-14-2025 Evaluation note* Diagnosis Onset Date Resolution Status [...] delivery by vacuum extraction, currently acute [facility] 2024 2:10pm Hx of delivery, curr ently acute October 02, 2024 2 :10pm acute October 02, 2024 2:10pm Supervision of high-risk acute October 02, 2024 2 :10pm Cystocele with incomplete uterovaginal prolapse acute October 04, 2024 10:31am History of chorioamnionitis acute October 04, 2024 10:31am Hx of delivery by vacuum extraction, currently acute [facility] 2024 10:31am Hx of delivery, curr [...] delivery by vacuum extraction, currently acute [facility] 2024 2:49pm Hx of delivery, curr ently acute October 23, 2024 2:49pm Nasal septum ulceration acute [facility] 2024 2:49pm acute October 23 2:49pm Supervision of high-risk acute October 23, 2024 2:49pm UTI in acute October 2:49pm Thrombocytopenia affecting chronic October 23, 2024 2:49pm [facility] Work Phone: 1(635) 104-795103-14-2025 Evaluation note* Diagnosis Onset Date Resolution Status [...] delivery by vacuum extraction, currently acute [facility] 2024 2:10pm Hx of delivery, curr ently acute October 02, 2024 2 :10pm acute October 02, 2024 2:10pm Supervision of high-risk acute October 02, 2024 2 :10pm Cystocele with incomplete uterovaginal prolapse acute October 04, 2024 10:31am History of chorioamnionitis acute October 04, 2024 10:31am Hx of delivery by vacuum extraction, currently acute [facility] 2024 10:31am Hx of delivery, curr ently acute October 04, 2024 1 0:31am acute October 04, 2024 10:31am Supervision of high-risk acute October 04, 2024 1 0:31am UTI in acute October 10:31am Thrombocytopenia affecting chronic October 04, 2024 1 0:31am Nasal septum ulceration acute [facility] 2024 9:06am Thrombocytopenia affecting chronic October 17, 2024 9:06am Cystocele with incomplete uterovaginal prolapse acute October 23, 2024 2:49pm History of chorioamnionitis acute October 23, 2024 2:49pm Hx of delivery by vacuum extraction, currently acute [facility] 2024 2:49pm Hx of delivery, curr ently acute October 23, 2024 2:49pm Nasal septum ulceration acute [facility] 2024 2:49pm acute October 23 2:49pm Supervision of high-risk acute October 23, 2024 2:49pm UTI in acute October 2:49pm Thrombocytopenia affecting chronic October 23, 2024 2:49pm Cystocele with incomplete uterovaginal prolapse acute November 08, 2024 3:37pm History of chorioamnionitis acute November 08, 2024 3:37pm Hx of delivery by vacuum extraction, currently acute [facility] 2024 3:37pm Hx of delivery, curr ently acute November 08, 2024 3 :37pm Nasal septum ulceration acute [facility] 2024 3:37pm acute November 08, 2024 3:37pm Supervision of high-risk acute November 08, 2024 3 :37pm UTI in acute October 3:37pm Thrombocytopenia affecting chronic November 08, 2024 3 :37pm [facility] Work Phone: 1([phone]) 740-542202-07-2025 Evaluation note* Diagnosis Onset Date Resolution Status [...] high-risk acute October 02, 2024 2 :10pm [facility] Work Phone: 1([phone]) 971-381302-07-2025 Evaluation note* Diagnosis Onset Date Resolution Status [...] 1 0:31am UTI in acute October 10:31am [facility] Work Phone: 1(319) 893-631902-07-2025 Evaluation note* Diagnosis Onset Date Resolution Status [...] by vacuum extraction, currently acute J 2024 10:31am Hx of delivery, currently acute October 04 10:31am acute October 04, 2024 10:31am Supervision of high-risk acute October 04, 2024 1 0:31am Thrombocytopenia affecting acute October 04, 2024 1 0:31am [facility] Work Phone: 1([phone] 717-276311-26-2024 History of Present illness Narrative* Mile Zee MA - 03/28/2024 11:20 AM EST [...] tablet [facility] Sandhu [facility]: 1(858) 914-432211-26-2024 Instructions* Patient Instructions* Tamika Sandhu MD - 03/28/2024 11:20 AM EST We will treat with amoxicillin and also discussed referral to ENT for further evaluation of the sinus issues she has had. She will let us know if she needs a referral. [facility] Work Phone: 1(458) 590-379308-16-2024 History of Present illness Narrative* Mile Zee [...] disorder Tamika Sandhu MD [facility] Work Phone: 1([phone]) 649-159808-16-2024 Instructions* Patient Instructions* Tamika Sandhu MD - 12/17/2023 9:00 AM EDT Continue current medications. Follow up with specialists as scheduled. Follow up in 6 months, sooner if needed. [facility] Work Phone: [phone]) 941-819202-16-2024 History of Present illness Narrative* Mile Zee [...] tablet Tamika Sandhu MD [facility] Work Phone: 1(793) 489-353402-16-2024 Instructions* Patient Instructions* Tamika Sandhu MD - 06/18/2023 10:40 AM EST Will treat with augmentin and prednisone. Follow up if no improvement or if she worsens. Otherwise continue current medications and follow up in 6 months. [facility] Work Phone: 1(336) 315-860401-05-2024 History of Present illness Narrative* CAMILA Reid - 05/07/2023 9:05 AM EST [facility] CAMILA Reid Visit Note [...] HISTORY 04/07/2022 Appendectomy OTHER SURGICAL HISTORY 04/07/2022 [place] tooth extraction FAMILY HX: No pertinent history. SOCIAL HX: reports that she has never smoked. She has never used smokeless tobacco. ; is a stay at [employer]. Has two young children. CHIEF COMPLAINT: Chief [...] taking Tylenol without much relief; no other fuab-iys-[id number] medications or home remedies for symptom management. [...] F) Resp 16 Ht 1.702 m (5' 7) Wt 52.2 kg (115 lb) LMP 05/07/2023 [...] Musculoskeletal: Grossly normal; appropriate for age. Integumentary: [place], warm, dry, and intact. No rashes or [...] and answered. CAMILA Reid Advanced Practice Provider [facility] documented in this [facility] Work Phone: 1([phone]) 141-865208-14-2023 History of Present illness Narrative* Debbie Otero [...] Primary Tamika Sandhu MD [facility] Work Phone: 1(315) 149-810008-14-2023 Instructions* Patient Instructions* Tamika Sandhu MD - 12/14/2022 9:20 AM EDT Continue current medications. Follow up in 6 months, sooner if needed. [facility] Work Phone: 1(240) 944-833105-02-2023 History of Present illness Narrative* Porsha Lord MA - 09/01/2022 10:00 AM EDT Pt is here today for 4 month check up. * Tamika Sandhu MD - 09/01/2022 10:00 AM EDT Macey Crockett is a 32 y.o. female who [...] disorder Tamika Sandhu MD [facility] Work Phone: 1([phone]) 131-325005-02-2023 Instructions* Patient Instructions* Tamika Sandhu MD - 09/01/2022 10:00 AM EDT Will increase the vyvanse to 40 mg daily, follow up here in 3 months, sooner if needed. [facility] Work Phone: 1(242) 472-748809-03-2021 NoteHNO ID: [id number] Author: Trevor Mireles PT Service: ? Author Type: Physical Therapist Type: Progress Notes Filed: 03/04/2021 11:23 AM Note Text: 03/04/2021 [facility] PHYSICAL THERAPY DISCONTINUANCE [...] of Care: created on 01/03/21 through 03/04/21 Power in home exercise program. Patient will demonstrate [...] to baseline. Patient Goals: improve pelvic pressure, know how to relax pelvic muscles for delivery Planned Interventions, Frequency, and Duration: Current Frequency: 1x/week Duration: 3 weeks (reassess at 3 weeks and progress as indicated) Total Number of Visits Planned: 3 Planned Treatment Interventions: Therapeutic exercise (08846);Manual therapy (03503);Self-retirement management (95782);Patient/Family/Caregiver Education PLAN FOR NEXT VISIT: progress strengthening [...] a bulge in vaginal canal. 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 Pt reports wearing belly belt, which helps with pressure. Patient Goals: improve pelvic pressure, know how to relax pelvic muscles for delivery Functional Limitations: standing;walking;lifting Prior Level of Function: [...] History Difficulty starting stream: (more content not included)...[facility] Diagnosis Attention deficit disorder, unspecified hyperactivity presence documented in this encounter [facility] Work Phone: Evaluation note* Diagnosis Attention deficit disorder, unspecified hyperactivity presence- Primary documented in this encounter [facility] Work Phone: Evaluation note* Diagnosis Influenza- Primary Influenza with other respiratory manifestations documented in this encounter [facility] Work Phone: Evaluation note* Diagnosis Acute sinusitis, recurrence not specified, unspecified location- Primary Attention deficit disorder, unspecified hyperactivity presence documented in this encounter [facility] Work Phone: Evaluation note* Diagnosis Acute sinusitis, recurrence not specified, unspecified location- Primary documented in this encounter [facility] Work Phone: Evaluation note* Diagnosis Attention deficit disorder, unspecified hyperactivity presence documented in this encounter [facility] Work Phone: History of Present illness NarrativeHere for f/u recent labs, ADHD. We did get her records from her psychiatrist.-[facility] Work Phone: Reason for referral (narrative)* Consultation (Routine) - Authorized Specialty Diagnoses / Procedures Referred By Atul gonzalez Referred To Contact Primary Care Diagnoses Attention deficit disorder, unspecified hyperactivity presence Procedures Follow Up In Primary Care - Established Longsdorf, Tamika A, MD [address] [place] [address] Referral ID Status Reason Start Date Expiration Date V isits Requested Visits Authorized [id number] Authorized 12/14/2022 06/12/2023 1 1 [facility] Work Phone: Reqwil for referral (narrative)* Consultation (Routine) - Authorized Specialty Diagnoses / Procedures Referred By Contac t Referred To Contact Primary Care Diagnoses Attention deficit disorder, unspecified hyperactivity presence Procedures Follow Up In Primary Care - Established Tamika Sandhu MD [address] [place] [address] Referral ID Status Reason Start Date Expiration Date V isits Requested Visits Authorized [id number] Authorized 06/18/2023 06/17/2024 1 1 [facility] Work Phone: Reijub for referral (narrative)* Consultation (Routine) - Authorized Specialty Diagnoses / Procedures Referred By Contac t Referred To Contact Primary Care Procedures Follow Up In Primary Care - Established Tamika Sandhu MD [address] [place] [address] Referral ID Status Reason Start Date Expiration Date V isits Requested Visits Authorized [id number] Authorized 12/17/2023 12/16/2024 1 1 [facility] Work Phone: Rehnel for referral (narrative)No reason for referral information availableK[facility] Work Phone: Reason for visit Narrative* Consultation (Routine) - Closed Specialty Diagnoses / Procedures Referred By Contac t Referred To Contact Primary Care Diagnoses Attention deficit disorder, unspecified hyperactivity presence Procedures Follow Up In Primary Care - Established Tamika Sandhu MD [address] [place] [address] Referral ID Status Reason Start Date Expiration Date Visits Re quested Visits Authorized [id number] Closed 12/14/2022 06/12/2023 1 1 [facility] Work Phone: Reason for visit Narrative* Consultation (Routine) - Authorized Specialty Diagnoses / Procedures Referred By Atul gonzalez Referred To Contact Primary Care Diagnoses Attention deficit disorder, unspecified hyperactivity presence Procedures Follow Up In Primary Care - Established Tamika Sandhu MD [address] [place] [address] Referral ID Status Reason Start Date Expiration Date V isits Requested Visits Authorized [id number] Authorized 06/18/2023 06/17/2024 1 1 [facility] Work Phone: Summary Purpose Family History No Family History Records FoundUnknown Family Member Name Dates Details Family history [...] high-risk October 04, 2024 10:31am Thrombocytopenia affecting Oct 10:31am UTI in October 04, 2024 10:31 am Reason for Visit Admit Date History of chorioamnionitis June 10:08am Hx of delivery by vacuum extraction, cur rently June 09, 2024 10:08am Hx of delivery, currently pregna nt June 09, 2024 10:08am June 09, 2024 1 0:08am Supervision of high-risk Febru 2024 10:08am History of chorioamnionitis July 14, 2024 [...] August 09, 2024 2:55pm History of chorioamnionitis May 7th, 202 5 2:08pm Hx of delivery by vacuum extraction, [...] 17, 2024 9:06am Thrombocytopenia affecting Oct 9:06am Chief Complaint Admit Date 15 wk [...] 2024 2:49pm History of chorioamnionitis October 23, 2:49pm Hx of delivery by vacuum extraction, [...] 23, 2024 2:49 pm Thrombocytopenia affecting [place] 2024 2:49pm Cystocele with incomplete uterovaginal p [...] 2024 3:15pm History of chorioamnionitis November 23, 2 025 3:15pm Hx of delivery by vacuum extraction, cur rently November 23, 2024 3:15pm Hx of delivery, currently pregna nt November 23, 2024 3:15pm Nasal septum ulceration November 23, 2024 3:15pm November 23, 2024 3:15 pm Supervision of high-risk November 23, 2024 3:15pm UTI in November 23, 2024 3:15 pm Thrombocytopenia affecting Oct 3:15pm Chief Complaint Admit Date 19wk ob August [...] wk ob November 23, 2024 3:15 pm Hemorrhage in early , unspecifi ed November 23, 2024 5:03pm Chief Complaint Admit Date 19wk ob August [...] wk ob November 23, 2024 3:15 pm Hemorrhage in early , unspecifi ed November 23, 2024 5:03pm R/O PRE- ECLAMPISA November 30, 2024 3:45 pm Reason for Visit Admit Date History of chorioamnionitis August 09, 025 2:55pm Hx of delivery by vacuum [...] 2024 3:15pm History of chorioamnionitis November 23, 2 025 3:15pm Hx of delivery by vacuum extraction, cur rently November 23, 2024 3:15pm Hx of delivery, currently pregna nt November 23, 2024 3:15pm Nasal septum ulceration November 23, 2024 3:15pm November 23, 2024 3:15 pm Supervision of high-risk November 23, 2024 3:15pm UTI in November 23, 2024 3:15 pm Thrombocytopenia affecting Oct 3:15pm Cystocele with incomplete uterovaginal p rolapse November 30, 2024 3:45pm Headache in November 30, 2024 3: 45pm History of chorioamnionitis November 30, 025 3:45pm Hx of delivery by vacuum extraction, cur rently November 30, 2024 3:45pm Hx of delivery, currently pregna nt November 30, 2024 3:45pm Nasal septum ulceration November 30, 2024 3:45pm November 30, 2024 3:45 pm Supervision of high-risk November 30, 2024 3:45pm UTI in November 30, 2024 3:45 pm Thrombocytopenia affecting Oct 3:45pm Additional Source Comments INFORMATION SOURCE (unrecogn ized section and content) DATE CREATED AUTHOR 01/17/2018 [facility] DATE CREATED AUTHOR AUTHOR'S ORGANIZ ATION 06/06/2021 [facility] DATE CREATED AUTHOR AUTHOR'S ORGANIZ ATION 12/05/2021 [facility] DATE CREATED AUTHOR AUTHOR'S ORGANIZ ATION 05/20/2022 [facility] DATE CREATED AUTHOR AUTHOR'S ORGANIZ ATION 05/20/2022 [facility] DATE CREATED AUTHOR AUTHOR'S ORGANIZ ATION 05/08/2023 [facility] DATE CREATED AUTHOR AUTHOR'S ORGANIZ ATION 05/27/2024 [facility] DATE CREATED AUTHOR AUTHOR'S ORGANIZ ATION 08/30/2024 [facility] DATE CREATED AUTHOR AUTHOR'S ORGANIZ ATION 12/04/2024 [facility] Care Teams (unrecognized sec tion and content) Director Sales Training Relationship Specialty Start Date End Date Tamika Sandhu MD [address] [facility] [place] [address] PCP - General 04/07/22 Director Sales Training Relationship Specialty Start Date End Date Tamika Sandhu MD [address] [place] [address] PCP - General 04/07/22 Tamika Sandhu MD [address] [facility] [place] [id number] PCP - [facility] PCP 07/01/22 Director Sales Training Relationship Specialty Start Date End Date Tamika Sandhu MD [address] [place] [address] PCP - General 04/07/22 Tamika Sandhu MD [address] [place] [address] PCP - [place] [facility] PCP 07/01/22 Director Sales Training Relationship Specialty Start Date End Date Tamika Sandhu MD [address] [facility] [place] [address] PCP - General 04/07/22 Tamika Sandhu MD [address] [facility] [place] [id number] PCP - [place] [facility] PCP 07/01/22 Director Sales Training Relationship Specialty Start Date End Date Tamika Sandhu MD [address] [address] PCP - General 04/07/22 Director Sales Training Relationship Specialty Start Date End Date Tamika Sandhu MD [address] [facility] [place] [address] PCP - General 04/07/22 Team Status: Active [...] 2024 End: September 06, 2024 [employer] Attending Provider Active Start: September 06, 2024 [...] 2024 End: October 04, 2024 [employer] Attending Provider Active Start: October 04, 2024 End: October 04, 2024 Team Status: Active Member Role Status Dates No Primary Care Physician Primary Care Provider Active Start: October 04, 2024 [employer] Attending Provider Active Start: October 04, 2024 [employer] Referring Provider Active Start: October 04, 2024 Team Status: Inactive Member Role Status Dates No Primary Care Physician Primary Care Provider Active Start: October 04, 2024 End: October 04, 2024 [employer] Attending Provider Active Start: October 04, 2024 End: October 04, 2024 [employer] Referring Provider Active Start: October 04, 2024 [...] 2024 End: September 06, 2024 [employer] Attending Provider Active Start: September 06, 2024 [...] 2024 End: October 04, 2024 [employer] Attending Provider Active Start: October 04, 2024 End: October 04, 2024 Team Status: Inactive Member Role/Relationship Status Dates No Primary Care Physician Primary Care Provider Active Start: October 04, 2024 End: October 04, 2024 [employer] Attending Provider Active Start: October 04, 2024 End: October 04, 2024 [employer] Referring Provider Active Start: October 04, 2024 [...] 2024 End: November 08, 2024 [employer] Attending Provider Active Start: November 08, 2024 [...] 2024 End: September 06, 2024 [employer] Attending Provider Active Start: September 06, 2024 [...] 2024 End: October 04, 2024 [employer] Attending Provider Active Start: October 04, 2024 End: October 04, 2024 Team Status: Inactive Member Role/Relationship Status Dates No Primary Care Physician Primary Care Provider Active Start: October 04, 2024 End: October 04, 2024 [employer] Attending Provider Active Start: October 04, 2024 End: October 04, 2024 [employer] Referring Provider Active Start: October 04, 2024 [...] 2024 End: November 08, 2024 [employer] Attending Provider Active Start: November 08, 2024 [...] November 23, 2024 End: November 23, 2024 Team Status: Inactive Member Role/Relationship Status Dates No Primary Care Physician Primary Care Provider Active Start: November 23, 2024 End: November 23, 2024 Dr. Citlalli Cabrera MD Attending Provider Active Start: November 23, 2024 End: November 23, 2024 Dr. Citlalli Cabrera MD Referring Provider Active Start: November 23, 2024 End: November 23, 2024 Team Status: Inactive Member Role/Relationship Status Dates No Primary Care Physician Primary Care Provider Active Start: November 30, 2024 End: November 30, 2024 Dr. Citlalli Cabrera MD Attending Provider Active Start: November 30, 2024 End: November 30, 2024 Dr. Citlalli Cabrera MD Referring Provider Active Start: November 30, 2024 End: November 30, 2024 Reason for Visit (unrecogniz ed section [...] BE BASED ON THE PRIMARY CLINICAL RECORDS. [employer] provides no warranty or guarantee of the accuracy or completeness of information in this document.
--- OUTSIDE RECORDS SUMMARY | 2024-12-08 00:43 | XMS RPT_ITS | CCD ---
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 Name Role Phone No Doctor Assigned, Nodr Unavailable Unavail able Karohl, Jessica Unavailable Unavailable Karohl, Jessica Unavailable Unavailable Marques, PA-C Unavailable Unavailable Marques, PA-C Unavailable Unavailable No Doctor Assigned, Nodr Unavailable Unavail able GARDENIA MCDERMOTT Attending Unavailab celena CARCAMO, PHYSICIAN Primary Care Unavailable Tamika Sandhu Unavailable Unavailable Unavailable Tamika Sandhu Attending Pk Sandhu, Tamika Levine Primary Care Pk Sandhu, Tamika Levine Referring Pk Sandhu, Tamika Levine Attending Tamika Martinez Primary Care Pk Sandhu, Tamika Levine Referring Pk Laraakjoanna, Tamika Levine Attending Tamika Martinez Primary Care [...] Dr. Rosalba Yang DO Attending Provider Marce RECAPPER-C, Kamla Attending Provider [phone] Yunier MAYER, Kecia Attending Provider [phone] Marce RECAPPER-C, Kamla Referring Provider Care Physician, No Primary Primary Care Provider Unavailable Care Physician, No Primary Referring Provider Un available Dr. Citlalli Cabrera MD Attending Provider [phone] Dr. Citlalli Cabrera MD Referring Provider [phone] Yunier MAYER, Kecia Referring Provider [phone] Dr. Samm Colbert MD Attending Provider Dr. Samm Colbert MD Referring Provider Care Physician, No Primary Primary Care Provider Unavailable Care Physician, No Primary Referring Provider Un available Dr. Citlalli Cabrera MD Other Provider [phone] Rosalba Yang Attending Unavailabl e Care Physician, [...] Citlalli Consulting Unavailable Marce, Kamla Referring Unavailable [place]umberton, Kamla Attending Unavailable Care Physician, No Primary [...] Care Physician, No Primary Referring Unava ilable [place], Kamla Attending Unavailable Care Physician, No Primary Primary Care Unava ilable Care Physician, No Primary Primary Care Unava ilable Prah, Samm Attending Unavailable Kecia Faye Referring Unavailable Care Physician, No Primary Referring Unava ilable Care Physician, No Primary Primary Care Unava ilable Marcanthony, Citlalli Attending Unavailable LumbertonKamla Attending Unavailable Care Physician, No Primary Referring [...] completed) Start: 04-21-2022 take 1 capsule by [facility] once daily Vyvanse 30 MG Oral [...] 10 capsule 0 05/07/2023 05/12/2023 Active Pnv No.145-Vj-Xm8-Dha- Epa-Fish 400 mcg-35 mg- 25 mg-5 mg tablet,chewable (11 sources) Start: 06-02-2024 Pnv No.925-Dh-Ul9-Dha- Epa-Fish 400 mcg-35 mg- 25 mg-5 mg tablet,chewable Active 1 {tbl} PO DAILY June 02, 2024 1:00am Start: 06-02-2024 Pnv No.153-Fa- Rq5-Iep-Zuy-Fish 400 mcg-35 mg- 25 mg-5 mg tablet,chewable [...] 10 tablet 05/07/2023 03/28/2024 Discontinued (Therapy completed) Vit,Bwiw05-Gdwo-Hghvn 1 TABLET tablet (11 sources) Start: 08-24-2019 End: 06-02-2024 take 1 tablet by mouth once daily Vit,Cicb21-Swrh-Zaqzu 1 TABLET tablet Discontinued 1 {tbl} PO DAILY August 24, 2019 12:00am June 02, 2024 10:17am Check with primary doctor Start: 08-24-2019 End: 06-02-2024 take 1 tablet by mouth once daily Vit,Loae07-Aopk-Tmhim 1 TABLET tablet Discontinued 1 {tbl} PO [...] PRR , MARGO 01/04/25 ,girl PC [place], [place] Victor Manuel Other complications of (20 sources) [...] AST [Catalytic activity/Vol] 32 U/L Normal <=31 [facility] Comment on above: Performed By: #### L 100.0500, L501.1400, L501.4405, L501.0900, L501.1105, L501.4100 #### [facility] [address] [place], [address] Alanine Aminotransferas (SGP T)on 11-30-2024 ALT [Catalytic activity/Vol] 20 U/L Normal <=34 [facility] Comment on above: Performed By: #### L 501.0250, L509.8002, BTS, L3890.6006, L100.0100 #### [facility] [address] [place], [address] CBC-Complete Blood Cnt No Di ffon 11-30-2024 Erythrocyte distribution width (RBC) [Ratio] 12.1 % Normal 11.6-14.6 [facility] Comment on above: Performed By: #### L 100.0500, L501.1400, L501.4405, L501.0900, L501.1105, L501.4100 #### [facility] [address] [place], [address] Hematocrit (Bld) [Volume fraction] 36.0 % Low 37-47 [facility] Comment on above: Performed By: #### L 100.0500, L501.1400, L501.4405, L501.0900, L501.1105, L501.4100 #### [facility] [address] [place], [address] Hemoglobin (Bld) [Mass/Vol] 12.1 g/dL Normal 12.0-15.0 [facility] Comment on above: Performed By: #### L 100.0500, L501.1400, L501.4405, L501.0900, L501.1105, L501.4100 #### [facility] [address] [place], [address] MCH (RBC) [Entitic mass] 30.4 pg Normal 27.0-32.0 [facility] Comment on above: Performed By: #### L 100.0500, L501.1400, L501.4405, L501.0900, L501.1105, L501.4100 #### [facility] [address] [place], [address] MCHC (RBC) [Mass/Vol] 33.6 g/dL Normal 32-36 [facility] Comment on above: Performed By: #### L 100.0500, L501.1400, L501.4405, L501.0900, L501.1105, L501.4100 #### [facility] [address] [place], [address] MCV (RBC) [Entitic vol] 90.5 fL Normal 81-99 [facility] Comment on above: Performed By: #### L 100.0500, L501.1400, L501.4405, L501.0900, L501.1105, L501.4100 #### [facility] [address] [place], [address] Platelet mean volume (Bld) [Entitic vol] 12.5 fL High 6.2-12.0 [facility] Comment on above: Performed By: #### L 100.0500, L501.1400, L501.4405, L501.0900, L501.1105, L501.4100 #### [facility] [address] [place], [address] Platelets (Bld) [#/Vol] 100 10*3/uL Low 150-450 [facility] Comment on above: Performed By: #### L 100.0500, L501.1400, L501.4405, L501.0900, L501.1105, L501.4100 #### [facility] [address] [place], [address] RBC (Bld) [#/Vol] 3.98 10*6/uL Low 4.2-5.4 [facility] Comment on above: Performed By: #### L 100.0500, L501.1400, L501.4405, L501.0900, L501.1105, L501.4100 #### [facility] [address] [place], [address] RDW SD 39.8 fl Normal 35.1-43.9 [facility] Comment on above: Performed By: #### L 100.0500, L501.1400, L501.4405, L501.0900, L501.1105, L501.4100 #### [facility] [address] [place], [address] WBC (Bld) [#/Vol] 12.0 10*3/uL High 4.4-11.0 [facility] Comment on above: Performed By: #### L 100.0500, L501.1400, L501.4405, L501.0900, L501.1105, L501.4100 #### [facility] [address] [place], [address] Erythrocyte distribution wid th ratioOrdered By: Citlalli Cabrera on 11-30-2024 Erythrocyte distribution width (RBC) [Ratio] 12.1 % 11.6-14.6 [facility] Erythrocyte distribution wid th standard deviationOrdered By: Citlalli Cabrera on 11-30-2024 Erythrocyte distribution width (RBC) [Ratio] 39.8 fl 35.1-43.9 [facility] Glomerular filtration rate ( GFR) estimation/1.73 sq m using serum, plasma, or whole bOrdered By: Citlalli Cabrera on 11-30-2024 GFR/1.73 sq M.predicted among non-blacks MDRD (S/P/Bld) [Vol rate/Area] 139 mL/min/{1.73_m2} >60 [facility] Comment on above: mL/min/1.73m2 CKD-EP I Creatinine Equation (2020) Hematocrit Auto (Bld) [Volum e fraction]Ordered By: Citlalli Cabrera on 11-30-2024 Hematocrit (Bld) [Volume fraction] 36.0 % Low 37-47 [facility] Hemoglobin measurementOrdere d By: Citlalli Cabrera on 11-30-2024 Hemoglobin (Bld) [Mass/Vol] 12.1 g/dL 12.0-15.0 [facility] Laboratory - Chemistry and C hemistry - challengeOrdered By: Citlalli Cabrera on 11-30-2024 AST [Catalytic activity/Vol] 32 U/L <32 [facility] MCV (mean corpuscular volume ) determinationOrdered By: Citlalli Cabrera on 11-30-2024 MCV (RBC) [Entitic vol] 90.5 fL 81-99 [facility] Mean corpuscular hemoglobin (MCH) determinationOrdered By: Citlalli Cabrera on 11-30-2024 MCH (RBC) [Entitic mass] 30.4 pg 27.0-32.0 [facility] Mean corpuscular hemoglobin concentration (MCHC) determinationOrdered By: Citlalli Cabrera on 11-30-2024 MCHC (RBC) [Mass/Vol] 33.6 g/dL 32-36 [facility] Mean platelet volume determi nationOrdered By: Citlalli Cabrera on 11-30-2024 Platelet mean volume (Bld) [Entitic vol] 12.5 fL High 6.2-12.0 [facility] OB Triage Physician Noteon 0 11-30-2024 OB Triage Physician Note [facility] Medical Records Department [address] [place] [address] OB Triage Physician Note 11/30/24 1730 MR#: [id number] Acct: [id number] Name: MARIBEL CROCKETT Rep #: [id number] : 1990 34 From: Citlalli Cabrera MD [...] 2 current occupational status: unemployed current occupation: [employer] pets and animals: Yes pets and [...] physical activity do you participate in: none ramesh/mosque: Mosque seatbelt use: always do you feel safe at home: Yes 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 (more content not included)... Normal [facility] Platelet countOrdered By: Khoi Cabrera on 11-30-2024 Platelets (Bld) [#/Vol] 100 10*3/uL Low 150-450 [facility] Protein+Creatinine Ratio,Uri neon 11-30-2024 PROT:CRE RATIO 166 mg/g CRE Normal 0-200 [facility] Comment on above: Performed By: #### L 100.0500, L501.1400, L501.4405, L501.0900, L501.1105, L501.4100 #### [facility] [place], [address] Protein (U) [Mass/Vol] 9.0 mg/dL Normal 0.0-12.0 [facility] Comment on above: Performed By: #### L 100.0500, L501.1400, L501.4405, L501.0900, L501.1105, L501.4100 #### [facility] [address] [place], [address] UR CREAT 54.00 mg/dL Normal 28.00-217.00 [facility] Comment on above: Performed By: #### L 100.0500, L501.1400, L501.4405, L501.0900, L501.1105, L501.4100 #### [facility] [address] [place], [address] RBC Auto (Bld) [#/Vol]Ordere d By: Citlalli Cabrera on 11-30-2024 RBC (Bld) [#/Vol] 3.98 10*6/uL Low 4.2-5.4 [facility] Random urine creatinine kourtney urement (mass/volume)Ordered By: Citlalli Cabrera on 11-30-2024 Creatinine Unsp time (U) [Mass/Vol] 54.00 mg/dL 28.00-217.00 [facility] Serum Creatinine AND GFRon 0 11-30-2024 Creatinine [Mass/Vol] 0.35 mg/dL Low 0.70-1.20 [facility] Comment on above: Performed By: #### L 100.0500, L501.1400, L501.4405, L501.0900, L501.1105, L501.4100 #### [facility] [address] [place], [address] ECRCL 230.62 ml/min Normal 50-250 [facility] Comment on above: Performed By: #### L 100.0500, L501.1400, L501.4405, L501.0900, L501.1105, L501.4100 #### [facility] [address] [place], [address] GFR/1.73 sq M.predicted among non-blacks MDRD (S/P/Bld) [Vol rate/Area] 139 mL/min/{1.73_m2} Normal >60 [facility] Comment on above: Result Comment: mL/m in/1.73m2 CKD-EPI Creatinine Equation (2020) Performed By: #### L 100.0500, L501.1400, L501.4405, L501.0900, L501.1105, L501.4100 #### [facility] [address] [place], [address] Serum creatinine measurement (mass/volume)Ordered By: Citlalli Cabrera on 11-30-2024 Creatinine [Mass/Vol] 0.35 mg/dL Low 0.70-1.20 [facility] Serum or plasma alanine elizondo otransferase (ALT) measurementOrdered By: Citlalli Cabrera on 11-30-2024 ALT [Catalytic activity/Vol] 20 U/L <35 [facility] Serum or plasma uric acid me asurement (mass/volume)Ordered By: Citlalli Cabrera on 11-30-2024 Urate [Mass/Vol] 3.3 mg/dL 2.6-6.0 [facility] Comment on above: The drugs N-Acetylcy steine and Metamizole may falsely depress this assay. Uric Acidon 11-30-2024 URIC 3.3 mg/dL Normal 2.6-6.0 [facility] Comment on above: Result Comment: The drugs N-Acetylcysteine and Metamizole may falsely depress this assay. Performed By: #### L 100.0500, L501.1400, L501.4405, L501.0900, L501.1105, L501.4100 #### [facility] [address] [place], [address] Urine protein measurement (m ass/volume)Ordered By: Citlalli Cabrera on 11-30-2024 Protein (U) [Mass/Vol] 9.0 mg/dL 0.0-12.0 [facility] Urine protein/creatinine mas s ratioOrdered By: Citlalli Cabrera on 11-30-2024 Protein/Creatinine (U) [Mass ratio] 166 mg/g CRE 0-200 [facility] White blood cell (WBC) count Ordered By: Citlalli Cabrera on 11-30-2024 WBC (Bld) [#/Vol] 12.0 10*3/uL High 4.4-11.0 [facility] Urine Cultureon 11-24-2024 URC Pending Mixed Gram Positive Organisms [place] Count 80,000-100,000 MIXC Mixed contaminants. Submit a new specimen if indicated. Normal [facility] Comment on above: Performed By: #### L 501.0250, L509.8002, BTS, L3890.6006, L100.0100 #### [facility] [address] [facility] [place], [place], [address] Laboratory - Chemistry and C hemistry - challengeOrdered By: Citlalli Cabrera on 11-23-2024 Glucose Ql (U) Negative [facility] Laboratory - UrinalysisOrder ed By: Citlalli Cabrera on 11-23-2024 Protein Ql (U) Negative [facility] OB Limited With Biometricson 11-23-2024 OB Limited With Biometrics [facility] Imaging Services [address] [place], [place] [address] OB Limited With Biometrics MR#: [id number] Acct: [id number] Name: MARIBEL CROCKETT Rep #: [id number] : 1990 F 34 From: Jacky thayer MD PCP: Care Physician,No Primary Status: REG CLI Study: OB Limited With Biometrics Date of Exam: 11/23 Exam# [id number] Ordering Dr: Citlalli Cabrera PROCEDURE: OB LIMITED [...] 34 weeks and 6 days. Reading Location: [id number] CC: Dr. 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 Date Name GA/Weeks Outcome Route Bth Weight Gen Labor Lgth Anesthesia Del Locatn Provider FOB 08/24/19 [place] 36 live - vacuum 6lb 8 oz Female [address] [facility] Ho titi He Victor Manuel 02/22/21 [place] 38 live - full term 6# 8oz Female epidural [facility] Cal Rush Delivery Date: 08/24/19 Last Updated [...] 175 -???-???-???- (more content not included)... Normal [facility] Absolute lymphocyte countOrd ered By: Citlalli Cabrera on 11-21-2024 Lymphocytes Auto (Unsp spec) [#/Vol] 1.73 10*3/uL 0.83-4.51 [facility] Absolute neutrophil countOrd ered By: Citlalli Cabrera on 11-21-2024 Neutrophils (Bld) [#/Vol] 8.7 10*3/uL High 2.0-7.7 [facility] Activated partial thrombopla stin time (aPTT) in platelet poor plasma by coagulation aOrdered By: Citlalli Cabrera on 11-21-2024 aPTT Coag (PPP) [Time] 23.7 s Low 24.1-36.2 [facility] Automated lymphocyte count a s percentage of total leukocytesOrdered By: Citlalli Cabrera on 11-21-2024 Lymphocytes/100 WBC Auto (Unsp spec) 15.4 % Low 19-41 [facility] Basophil percentageOrdered B y: Citlalli Cabrera on 11-21-2024 Basophils/100 WBC (Bld) 0.3 % 0-1 [facility] Bilirubin Test strip Ql (U)O rdered By: Citlalli Cabrera on 11-21-2024 Bilirubin Ql (U) Negative Negative [facility] CBC W/Diff, Automatedon 11-01 Absolute Lymph 1.73 X10 3/uL Normal 0.83-4.51 [facility] Comment on above: Performed By: #### L 501.0250, L509.8002, BTS, L3890.6006, L100.0100 #### [facility] [address] [place], [address] Absolute Neut 8.7 X10 3/uL High 2.0-7.7 [facility] Comment on above: Performed By: #### L 501.0250, L509.8002, BTS, L3890.6006, L100.0100 #### [facility] [address] [place], [address] Basophils/100 WBC (Bld) 0.3 % Normal 0-1 [facility] Comment on above: Performed By: #### L 501.0250, L509.8002, BTS, L3890.6006, L100.0100 #### [facility] [address] [place], [address] Eosinophils/100 WBC (Bld) 0.8 % Normal 0-5 [facility] Comment on above: Performed By: #### L 501.0250, L509.8002, BTS, L3890.6006, L100.0100 #### [facility] [address] [place], [address] Erythrocyte distribution width (RBC) [Ratio] 12.4 % Normal 11.6-14.6 [facility] Comment on above: Performed By: #### L 501.0250, L509.8002, BTS, L3890.6006, L100.0100 #### [facility] [address] [place], [address] Hematocrit (Bld) [Volume fraction] 37.3 % Normal 37-47 [facility] Comment on above: Performed By: #### L 501.0250, L509.8002, BTS, L3890.6006, L100.0100 #### [facility] [address] [place], [address] Hemoglobin (Bld) [Mass/Vol] 12.7 g/dL Normal 12.0-15.0 [facility] Comment on above: Performed By: #### L 501.0250, L509.8002, BTS, L3890.6006, L100.0100 #### [facility] [address] [place], [address] IG% 0.500 Normal 0.0-0.9 [facility] Comment on above: Result Comment: IG% - Immature Granulocytes (promyelocytes, myelocytes and metamyelocytes) > 1% indicates that a LEFT SHIFT is Present. Performed By: #### L 501.0250, L509.8002, BTS, L3890.6006, L100.0100 #### [facility] [address] [place], [address] Lymphocytes/100 WBC (Bld) 15.4 % Low 19-41 [facility] Comment on above: Performed By: #### L 501.0250, L509.8002, BTS, L3890.6006, L100.0100 #### [facility] [address] [place], [address] MCH (RBC) [Entitic mass] 30.7 pg Normal 27.0-32.0 [facility] Comment on above: Performed By: #### L 501.0250, L509.8002, BTS, L3890.6006, L100.0100 #### [facility] [address] [place], [address] MCHC (RBC) [Mass/Vol] 34.0 g/dL Normal 32-36 [facility] Comment on above: Performed By: #### L 501.0250, L509.8002, BTS, L3890.6006, L100.0100 #### [facility] [address] [place], [address] MCV (RBC) [Entitic vol] 90.1 fL Normal 81-99 [facility] Comment on above: Performed By: #### L 501.0250, L509.8002, BTS, L3890.6006, L100.0100 #### [facility] [address] [place], [address] Monocytes/100 WBC (Bld) 6.0 % Normal 0-10 [facility] Comment on above: Performed By: #### L 501.0250, L509.8002, BTS, L3890.6006, L100.0100 #### [facility] [address] [place], [address] Neutrophils/100 WBC (Bld) 77.0 % High 47-70 [facility] Comment on above: Performed By: #### L 501.0250, L509.8002, BTS, L3890.6006, L100.0100 #### [facility] [address] [place], [address] Nucleated RBC (Bld) [#/Vol] 0 10*3/uL Normal 0-5 [facility] Comment on above: Performed By: #### L 501.0250, L509.8002, BTS, L3890.6006, L100.0100 #### [facility] [address] [place], [address] Platelet mean volume (Bld) [Entitic vol] 12.4 fL High 6.2-12.0 [facility] Comment on above: Performed By: #### L 501.0250, L509.8002, BTS, L3890.6006, L100.0100 #### [facility] [address] [place], [address] Platelets (Bld) [#/Vol] 108 10*3/uL Low 150-450 [facility] Comment on above: Performed By: #### L 501.0250, L509.8002, BTS, L3890.6006, L100.0100 #### [facility] [address] [place], [address] RBC (Bld) [#/Vol] 4.14 10*6/uL Low 4.2-5.4 [facility] Comment on above: Performed By: #### L 501.0250, L509.8002, BTS, L3890.6006, L100.0100 #### [facility] [address] [place], [address] RDW SD 40.7 fl Normal 35.1-43.9 [facility] Comment on above: Performed By: #### L 501.0250, L509.8002, BTS, L3890.6006, L100.0100 #### [facility] [address] [place], [address] WBC (Bld) [#/Vol] 11.2 10*3/uL High 4.4-11.0 [facility] Comment on above: Performed By: #### L 501.0250, L509.8002, BTS, L3890.6006, L100.0100 #### [facility] [address] [place], [address] Eosinophil percentageOrdered By: Citlalli Cabrera on 11-21-2024 Eosinophils/100 WBC (Bld) 0.8 % 0-5 [facility] Erythrocyte distribution wid th ratioOrdered By: Citlalli Cabrera on 11-21-2024 Erythrocyte distribution width (RBC) [Ratio] 12.4 % 11.6-14.6 [facility] Erythrocyte distribution wid th standard deviationOrdered By: Citlalli Cabrera on 11-21-2024 Erythrocyte distribution width (RBC) [Ratio] 40.7 fl 35.1-43.9 [facility] Fibrinogenon 11-21-2024 FIBRINOGEN 425 mg/dl Normal 203-444 [facility] Comment on above: Performed By: #### L 501.0250, L509.8002, BTS, L3890.6006, L100.0100 #### [facility] [place] [address], [address] Hematocrit Auto (Bld) [Volum e fraction]Ordered By: Citlalli Cabrera on 11-21-2024 Hematocrit (Bld) [Volume fraction] 37.3 % 37-47 [facility] Hemoglobin measurementOrdere d By: Citlalli Cabrera on 11-21-2024 Hemoglobin (Bld) [Mass/Vol] 12.7 g/dL 12.0-15.0 [facility] Immature granulocytes/100 WB C Auto (Bld)Ordered By: Citlalli Cabrera on 11-21-2024 Immature granulocytes/100 WBC (Bld) 0.500 % 0.0-0.9 [facility] Comment on above: IG% - Immature Granu locytes (promyelocytes, myelocytes and metamyelocytes) > 1% indicates that a LEFT SHIFT is Present. International normalized rat io (INR) calculationOrdered By: Citlalli Cabrera on 11-21-2024 INR Coag (Bld) [Relative time] 0.9 {INR} [facility] Ketones Test strip Ql (U)Ord ered By: Citlalli Cabrera on 11-21-2024 Ketones Ql (U) Negative Negative [facility] MCV (mean corpuscular volume ) determinationOrdered By: Citlalli Cabrera on 11-21-2024 MCV (RBC) [Entitic vol] 90.1 fL 81-99 [facility] Mean corpuscular hemoglobin (MCH) determinationOrdered By: Citlalli Cabrera on 11-21-2024 MCH (RBC) [Entitic mass] 30.7 pg 27.0-32.0 [facility] Mean corpuscular hemoglobin concentration (MCHC) determinationOrdered By: Citlalli Cabrera on 11-21-2024 MCHC (RBC) [Mass/Vol] 34.0 g/dL 32-36 [facility] Mean platelet volume determi nationOrdered By: Citlalli Cabrera on 11-21-2024 Platelet mean volume (Bld) [Entitic vol] 12.4 fL High 6.2-12.0 [facility] Monocyte percentageOrdered B y: Citlalli Cabrera on 11-21-2024 Monocytes/100 WBC (Bld) 6.0 % 0-10 [facility] Neutrophil percentageOrdered By: Citlalli Cabrera on 11-21-2024 Neutrophils/100 WBC (Bld) 77.0 % High 47-70 [facility] Nitrite Test strip Ql (U)Ord ered By: Citlalli Cabrera on 11-21-2024 Nitrite Ql (U) Negative Negative [facility] Nucleated red blood cell per centageOrdered By: Citlalli Cabrera on 11-21-2024 Nucleated RBC/100 WBC (Bld) [Ratio] 0 % 0-5 [facility] OB Triage Progress Noteon OB Triage Progress Note [facility] Medical Records Department [address] [place] [address] OB Triage Progress Note 11/21/24 0952 MR#: [id number] Acct: [id number] Name: MARIBEL CROCKETT Rep #: [id number] : 1990 34 From: Citlalli Cabrera MD PCP: Care Physician,No Primary Status:DEP CLI Y DOS: Location: WPOUT Progress Notes Date of Service: 11/21/24 Progress Note: Patient presents for triage evaluation secondary to vaginal bleeding pregnacy FHT: 140 Moderate variability reactive no decelerations category I tracing Java: occasional Contractions Assessment and plan: threatened labor [...] Lymph % (Auto) 15.4 L (19-41) % [place] % (Auto) 6.0 (0-10) % Eos % [...] pH 8.0 (5.0 - 8.0) Ur Specific [place] 1.015 (1.002-1.030) Urine Protein 15 H (Negative) mg/dl Urine Glucose (UA) Normal (Normal) mg/dl Urine Ketones Negative (Negative) mg/dl Urine Occult Blood 10 H (Negative) /ul Urine Nitrite Negative (Negative) Urine Bilirubin Negative (Negative) mg/dL Urine Urobilinogen Normal (Normal) mg/dl Ur Leukocyte Esterase 500 H (Negative) /ul Blood Type A POSITIVE Antibody Screen NEGATIVE Charges/Coding Procedures Urinary/Genital 52xxx-59xxx: [id number] non-stress test Interp 11/21/242001 Date Citlalli Cabrera MD Cosigner Signature (if applicable): Date CC: Dr. Citlalli Cabrera MD; No Primary Care Physician Signed ADDENDUM by Dr. Citlalli Cabrera MD on 11/30/24 at 1733 Addendum 33 weeks 11/30/241732 Date Citlalli Cabrera MD cc: Dr. Citlalli Cabrera MD; No Primary Care Physician * Signed Normal [facility] Partial Thromboplast Timeon 11-21-2024 aPTT Coag (Bld) [Time] 23.7 s Low 24.1-36.2 [facility] Comment on above: Performed By: #### L 501.0250, L509.8002, BTS, L3890.6006, L100.0100 #### [facility] [address] [place], [address] Platelet countOrdered By: Khoi Cabrera on 11-21-2024 Platelets (Bld) [#/Vol] 108 10*3/uL Low 150-450 [facility] Protein Test strip Ql (U)Ord ered By: Citlalli Cabrera on 11-21-2024 Protein Ql (U) 15 mg/dl High Negative [facility] Prothrombin Time w/INRon INR Coag (PPP) [Relative time] 0.9 {INR} Normal [facility] Comment on above: Performed By: #### L 501.0250, L509.8002, BTS, L3890.6006, L100.0100 #### [facility] [address] [place], [address] PT Coag (PPP) [Time] 12.4 s Normal 11.7-14.9 [facility] Comment on above: Performed By: #### L 501.0250, L509.8002, BTS, L3890.6006, L100.0100 #### [facility] [address] [place], [address] Prothrombin timeOrdered By: Citlalli Cabrera on 11-21-2024 PT Coag (PPP) [Time] 12.4 s 11.7-14.9 [facility] RBC Auto (Bld) [#/Vol]Ordere d By: Citlalli Cabrera on 11-21-2024 RBC (Bld) [#/Vol] 4.14 10*6/uL Low 4.2-5.4 [facility] Type AND Screenon 11-21-2024 Ab SCREEN GEL Negative Normal [facility] Comment on above: Order Comment: Labor Performed By: #### L 501.0250, L509.8002, BTS, L3890.6006, L100.0100 #### [facility] [address] [place], [address] Urinalysis, Routine (Dipstic k)on 11-21-2024 BILIRUBIN URINE Negative Normal Negative [facility] Comment on above: Order Comment: CLEAN CATCH Performed By: #### L 501.0250, L509.8002, BTS, L3890.6006, L100.0100 #### [facility] [address] [place], [address] Clarity (U) Sl. Cloudy Normal Clear [facility] Comment on above: Order Comment: CLEAN CATCH Performed By: #### L 501.0250, L509.8002, BTS, L3890.6006, L100.0100 #### [facility] [address] [place], [address] Color (U) Yellow Normal Yellow [facility] Comment on above: Order Comment: CLEAN CATCH Performed By: #### L 501.0250, L509.8002, BTS, L3890.6006, L100.0100 #### [facility] [address] [place], [address] GLUCOSE, UR Normal Normal Normal [facility] Comment on above: Order Comment: CLEAN CATCH Performed By: #### L 501.0250, L509.8002, BTS, L3890.6006, L100.0100 #### [facility] [address] [place], [address] KETONE UR Negative Normal Negative [facility] Comment on above: Order Comment: CLEAN CATCH Performed By: #### L 501.0250, L509.8002, BTS, L3890.6006, L100.0100 #### [facility] [address] [place], [address] LEUK ESTERASE 500 /ul Abnormal Negative [facility] Comment on above: Order Comment: CLEAN CATCH Performed By: #### L 501.0250, L509.8002, BTS, L3890.6006, L100.0100 #### [facility] [address] [place], [address] Nitrite Ql (U) Negative Normal Negative [facility] Comment on above: Order Comment: CLEAN CATCH Performed By: #### L 501.0250, L509.8002, BTS, L3890.6006, L100.0100 #### [facility] [address] [place], [address] OCCULT BLOOD-UR 10 /ul Abnormal Negative [facility] Comment on above: Order Comment: CLEAN CATCH Performed By: #### L 501.0250, L509.8002, BTS, L3890.6006, L100.0100 #### [facility] [address] [place], [address] pH UR 8.0 Normal 5.0 - 8.0 [facility] Comment on above: Order Comment: CLEAN CATCH Performed By: #### L 501.0250, L509.8002, BTS, L3890.6006, L100.0100 #### [facility] [address] [place], [address] PROT DIPSTX 15 mg/dl Abnormal Negative [facility] Comment on above: Order Comment: CLEAN CATCH Performed By: #### L 501.0250, L509.8002, BTS, L3890.6006, L100.0100 #### [facility] [address] [place], [address] SP.GR. DIPSTX 1.015 Normal 1.002-1.030 [facility] Comment on above: Order Comment: CLEAN CATCH Performed By: #### L 501.0250, L509.8002, BTS, L3890.6006, L100.0100 #### [facility] [address] [place], [address] UROBILI Normal Normal Normal [facility] Comment on above: Order Comment: CLEAN CATCH Performed By: #### L 501.0250, L509.8002, BTS, L3890.6006, L100.0100 #### [facility] [address] [place], [address] BILIRUBIN URINE Normal Negative [facility] Comment on above: Order Comment: COLLE CTOR TO SPECIFY Result Comment: Canc elled via OM: Order edited - Discontinuing original order Performed By: #### L 501.0250, L509.8002, BTS, L3890.6006, L100.0100 #### [facility] [address] [place], [address] Clarity (U) Normal Clear [facility] Comment on above: Order Comment: COLLE CTOR TO SPECIFY Result Comment: Canc elled via OM: Order edited - Discontinuing original order Performed By: #### L 501.0250, L509.8002, BTS, L3890.6006, L100.0100 #### [facility] [address] [place], [address] Color (U) Normal Yellow [facility] Comment on above: Order Comment: COLLE CTOR TO SPECIFY Result Comment: Canc elled via OM: Order edited - Discontinuing original order Performed By: #### L 501.0250, L509.8002, BTS, L3890.6006, L100.0100 #### [facility] [address] [place], [address] GLUCOSE, UR Normal Normal [facility] Comment on above: Order Comment: COLLE CTOR TO SPECIFY Result Comment: Canc elled via OM: Order edited - Discontinuing original order Performed By: #### L 501.0250, L509.8002, BTS, L3890.6006, L100.0100 #### [facility] [address] [place], [address] KETONE UR Normal Negative [facility] Comment on above: Order Comment: COLLE CTOR TO SPECIFY Result Comment: Canc elled via OM: Order edited - Discontinuing original order Performed By: #### L 501.0250, L509.8002, BTS, L3890.6006, L100.0100 #### [facility] [address] [place], [address] LEUK ESTERASE Normal Negative [facility] Comment on above: Order Comment: COLLE CTOR TO SPECIFY Result Comment: Canc elled via OM: Order edited - Discontinuing original order Performed By: #### L 501.0250, L509.8002, BTS, L3890.6006, L100.0100 #### [facility] [address] [place], [address] Nitrite Ql (U) Normal Negative [facility] Comment on above: Order Comment: COLLE CTOR TO SPECIFY Result Comment: Canc elled via OM: Order edited - Discontinuing original order Performed By: #### L 501.0250, L509.8002, BTS, L3890.6006, L100.0100 #### [facility] [address] [place], [address] OCCULT BLOOD-UR Normal Negative [facility] Comment on above: Order Comment: COLLE CTOR TO SPECIFY Result Comment: Canc elled via OM: Order edited - Discontinuing original order Performed By: #### L 501.0250, L509.8002, BTS, L3890.6006, L100.0100 #### [facility] [address] [place], [address] pH UR Normal 5.0 - 8.0 [facility] Comment on above: Order Comment: COLLE CTOR TO SPECIFY Result Comment: Canc elled via OM: Order edited - Discontinuing original order Performed By: #### L 501.0250, L509.8002, BTS, L3890.6006, L100.0100 #### [facility] [address] [place], [address] PROT DIPSTX Normal Negative [facility] Comment on above: Order Comment: COLLE CTOR TO SPECIFY Result Comment: Canc elled via OM: Order edited - Discontinuing original order Performed By: #### L 501.0250, L509.8002, BTS, L3890.6006, L100.0100 #### [facility] [address] [place], [address] SP.GR. DIPSTX Normal 1.002-1.030 [facility] Comment on above: Order Comment: COLLE CTOR TO SPECIFY Result Comment: Canc elled via OM: Order edited - Discontinuing original order Performed By: #### L 501.0250, L509.8002, BTS, L3890.6006, L100.0100 #### [facility] [address] [place], [address] UR Preservative Normal [facility] Comment on above: Order Comment: COLLE CTOR TO SPECIFY Result Comment: Canc elled via OM: Order edited - Discontinuing original order Performed By: #### L 501.0250, L509.8002, BTS, L3890.6006, L100.0100 #### [facility] [address] [place], [place], [address] UROBILI Normal Normal [facility] Comment on above: Order Comment: COLLE CTOR TO SPECIFY Result Comment: Jeancarlos elled via OM: Order edited - Discontinuing original order Performed By: #### L 501.0250, L509.8002, BTS, L3890.6006, L100.0100 #### [facility] [address] [place], [place], [address] Urine clarityOrdered By: Felton Cabrera on 11-21-2024 Clarity (U) Sl. Cloudy Clear [facility] Urine color determinationOrd ered By: Citlalli Cabrera on 11-21-2024 Color (U) Yellow Yellow [facility] Urine cultureOrdered By: Felton Cabrera on 11-21-2024 Bacteria identified Cx Nom (U) Positive Abnormal [facility] Urine glucose detectionOrder ed By: Citlalli Cabrera on 11-21-2024 Glucose Ql (U) Normal mg/dl Normal [facility] Urine leukocyte esterase det ection by dipstickOrdered By: Citlalli Cabrera on 11-21-2024 Leukocyte esterase Test strip Ql (U) 500 /ul High Negative [facility] Urine pHOrdered By: Citlalli medrano on 11-21-2024 pH (U) 8.0 [pH] 5.0 - 8.0 [facility] Urine specific gravity measu rementOrdered By: Citlalli Cabrera on 11-21-2024 Specific gravity (U) [Rel density] 1.015 1.002-1.030 [facility] Urine urobilinogen measureme ntOrdered By: Citlalli Cabrera on 11-21-2024 Urobilinogen Ql (U) Normal mg/dl Normal [facility] White blood cell (WBC) count Ordered By: Citlalli Cabrera on 11-21-2024 WBC (Bld) [#/Vol] 11.2 10*3/uL High 4.4-11.0 [facility] - Chemistry and C hemistry - challengeOrdered By: Kamla Zheng on 11-08-2024 Glucose Ql (U) Negative [facility] Laboratory - UrinalysisOrder ed By: Kamla Zheng on 11-08-2024 Protein Ql (U) Negative [facility] Skin Pass Operator Office Visit Reporton 11-08-2024 Skin Pass Operator Office Visit Report [facility] [address], [address] [place] [address] OFFICE VISIT Date of Service: 11/08/24 MR#: [id number] Acct: [id number] Name: MARIBEL CROCKETT Rep #: [id number] : 1990 Provider: MITZI johnson Age/Sex: 34/F [place] [facility] [place]: Signed Intake Vital Signs 10/02/24 14:24 10/23/24 15:11 11/08/24 15:43 Height 5 ft 7.5 in 5 ft 7.5 in 5 ft 7.5 in Weight: 143 lb 2 oz BMI 22.1 BP 118/64 Intake Visit Reasons: 32 wk ob Chief Complaint: 32 Week OB Appeals Officer Required: No Is patient in pain?: No [...] 2 current occupational status: unemployed current occupation: [employer] pets and animals: Yes pets and [...] physical activity do you participate in: none ramesh/mosque: Mosque seatbelt use: always do you feel safe at home: Yes 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 Normal [facility] - Chemistry and C hemistry - challengeOrdered By: Citlalli Cabrera on 10-23-2024 Glucose Ql (U) Negative [facility] - UrinalysisOrder ed By: Citlalli Cabrera on 10-23-2024 Protein Ql (U) Negative [facility] Skin Pass Operator Office Visit Reporton 10-23-2024 Skin Pass Operator Office Visit Report [facility] [address], [address] [place] [address] OFFICE VISIT Date of Service: 10/23/24 MR#: [id number] Acct: [id number] Name: MARIBEL CROCKETT Rep #: [id number] : 1990 Provider: Dr. Citlalli acuna MD Age/Sex: 34/F [place] [facility] [place] Status: Signed Intake Vital Signs 08/09/24 15:05 10/17/24 09:36 10/23/24 15:11 Height 5 ft 7.5 in 5 ft 7.5 in Weight: 144 lb 4 oz BMI 22.2 BP 95/60 Intake Visit Reasons: 30wk ob, pessary fitting. 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 Normal [facility] Absolute lymphocyte countOrd ered By: Samm Castillo on 10-17-2024 Lymphocytes Auto (Unsp spec) [#/Vol] 1.56 10*3/uL 0.83-4.51 [facility] Absolute neutrophil countOrd ered By: Samm [facility] on 10-17-2024 Neutrophils (Bld) [#/Vol] 7.0 10*3/uL 2.0-7.7 [facility] Anion gap in Serum or Plasma Ordered By: Samm Colbert on 10-17-2024 Anion gap [Moles/Vol] 10 mmol/L 5-15 [facility] Automated lymphocyte count a s percentage of total leukocytesOrdered By: Samm Colbert on 10-17-2024 Lymphocytes/100 WBC Auto (Unsp spec) 16.8 % Low 19-41 [facility] BUN/creatinine ratioOrdered By: Samm Colbert on 10-17-2024 Urea nitrogen/Creatinine [Mass ratio] 18.6 mg/mg 10- [facility] Basophil percentageOrdered B y: Samm Colbert on 10-17-2024 Basophils/100 WBC (Bld) 0.2 % 0-1 [facility] Bilirubin, totalOrdered By: Samm Colbert on 10-17-2024 Bilirubin [Mass/Vol] mg/dL 0.00-1.30 [facility] CBC W/Diff, Automatedon 10-01 Absolute Lymph 1.56 X10 3/uL Normal 0.83-4.51 [facility] Comment on above: Performed By: #### L 501.0250, L509.8002, BTS, L3890.6006, L100.0100 #### [facility] [address] [place], [address] Absolute Neut 7.0 X10 3/uL Normal 2.0-7.7 [facility] Comment on above: Performed By: #### L 501.0250, L509.8002, BTS, L3890.6006, L100.0100 #### [facility] [address] [place], [address] Basophils/100 WBC (Bld) 0.2 % Normal 0-1 [facility] Comment on above: Performed By: #### L 501.0250, L509.8002, BTS, L3890.6006, L100.0100 #### [facility] [address] [place], [address] Eosinophils/100 WBC (Bld) 0.9 % Normal 0-5 [facility] Comment on above: Performed By: #### L 501.0250, L509.8002, BTS, L3890.6006, L100.0100 #### [facility] [address] [place], [address] Erythrocyte distribution width (RBC) [Ratio] 12.6 % Normal 11.6-14.6 [facility] Comment on above: Performed By: #### L 501.0250, L509.8002, BTS, L3890.6006, L100.0100 #### [facility] [address] [place], [address] Hematocrit (Bld) [Volume fraction] 37.7 % Normal 37-47 [facility] Comment on above: Performed By: #### L 501.0250, L509.8002, BTS, L3890.6006, L100.0100 #### [facility] [address] [place], [address] Hemoglobin (Bld) [Mass/Vol] 12.8 g/dL Normal 12.0-15.0 [facility] Comment on above: Performed By: #### L 501.0250, L509.8002, BTS, L3890.6006, L100.0100 #### [facility] [address] [place], [address] IG% 0.500 Normal 0.0-0.9 [facility] Comment on above: Result Comment: IG% - Immature Granulocytes (promyelocytes, myelocytes and metamyelocytes) > 1% indicates that a LEFT SHIFT is Present. Performed By: #### L 501.0250, L509.8002, BTS, L3890.6006, L100.0100 #### [facility] [address] [place], [address] Lymphocytes/100 WBC (Bld) 16.8 % Low 19-41 [facility] Comment on above: Performed By: #### L 501.0250, L509.8002, BTS, L3890.6006, L100.0100 #### [facility] [address] [place], [address] MCH (RBC) [Entitic mass] 30.9 pg Normal 27.0-32.0 [facility] Comment on above: Performed By: #### L 501.0250, L509.8002, BTS, L3890.6006, L100.0100 #### [facility] [address] [place], [address] MCHC (RBC) [Mass/Vol] 34.0 g/dL Normal 32-36 [facility] Comment on above: Performed By: #### L 501.0250, L509.8002, BTS, L3890.6006, L100.0100 #### [facility] [address] [place], [address] MCV (RBC) [Entitic vol] 91.1 fL Normal 81-99 [facility] Comment on above: Performed By: #### L 501.0250, L509.8002, BTS, L3890.6006, L100.0100 #### [facility] [address] [place], [address] Monocytes/100 WBC (Bld) 6.7 % Normal 0-10 [facility] Comment on above: Performed By: #### L 501.0250, L509.8002, BTS, L3890.6006, L100.0100 #### [facility] [address] [place], [address] Neutrophils/100 WBC (Bld) 74.9 % High 47-70 [facility] Comment on above: Performed By: #### L 501.0250, L509.8002, BTS, L3890.6006, L100.0100 #### [facility] [address] [place], [address] Nucleated RBC (Bld) [#/Vol] 0 10*3/uL Normal 0-5 [facility] Comment on above: Performed By: #### L 501.0250, L509.8002, BTS, L3890.6006, L100.0100 #### [facility] [address] [place], [address] Platelet mean volume (Bld) [Entitic vol] 11.9 fL Normal 6.2-12.0 [facility] Comment on above: Performed By: #### L 501.0250, L509.8002, BTS, L3890.6006, L100.0100 #### [facility] [address] [place], [address] Platelets (Bld) [#/Vol] 105 10*3/uL Low 150-450 [facility] Comment on above: Performed By: #### L 501.0250, L509.8002, BTS, L3890.6006, L100.0100 #### [facility] [address] [place], [address] RBC (Bld) [#/Vol] 4.14 10*6/uL Low 4.2-5.4 [facility] Comment on above: Performed By: #### L 501.0250, L509.8002, BTS, L3890.6006, L100.0100 #### [facility] [address] [place], [address] RDW SD 41.7 fl Normal 35.1-43.9 [facility] Comment on above: Performed By: #### L 501.0250, L509.8002, BTS, L3890.6006, L100.0100 #### [facility] [address] [place], [address] WBC (Bld) [#/Vol] 9.3 10*3/uL Normal 4.4-11.0 [facility] Comment on above: Performed By: #### L 501.0250, L509.8002, BTS, L3890.6006, L100.0100 #### [facility] [address] [place], [address] Carbon dioxide, total [Moles /volume] in Central venous bloodOrdered By: Samm Colbret on 10-17-2024 CO2 [Moles/Vol] 21.0 mmol/L 21.0-32.0 [facility] Chloride assayOrdered By: Aidee Colbert on 10-17-2024 Chloride [Moles/Vol] 104 mmol/L 98-108 [facility] Comprehensive Metabolic Prof ilon 10-17-2024 Albumin [Mass/Vol] 3.5 g/dL Normal 3.5-5.0 [facility] Comment on above: Performed By: #### L 501.0250, L509.8002, BTS, L3890.6006, L100.0100 #### [facility] [address] [place], [address] Albumin/Globulin [Mass ratio] 1.5 {ratio} Normal 0.9-2.4 [facility] Comment on above: Performed By: #### L 501.0250, L509.8002, BTS, L3890.6006, L100.0100 #### [facility] [address] [place], [address] ALK PHOS 54 U/L Normal 35-104 [facility] Comment on above: Performed By: #### L 501.0250, L509.8002, BTS, L3890.6006, L100.0100 #### [facility] [address] [place], [address] ALT [Catalytic activity/Vol] 15 U/L Normal <=34 [facility] Comment on above: Performed By: #### L 501.0250, L509.8002, BTS, L3890.6006, L100.0100 #### [facility] [address] [place], [address] AST [Catalytic activity/Vol] 21 U/L Normal <=31 [facility] Comment on above: Performed By: #### L 501.0250, L509.8002, BTS, L3890.6006, L100.0100 #### [facility] [address] [place], [address] BUN/CRE 18.6 RATIO Normal 10-20 [facility] Comment on above: Performed By: #### L 501.0250, L509.8002, BTS, L3890.6006, L100.0100 #### [facility] [address] [place], [address] Calcium [Mass/Vol] 8.2 mg/dL Normal 7.6-11.0 [facility] Comment on above: Performed By: #### L 501.0250, L509.8002, BTS, L3890.6006, L100.0100 #### [facility] [address] [place], [address] Chloride [Moles/Vol] 104 mmol/L Normal 98-108 [facility] Comment on above: Performed By: #### L 501.0250, L509.8002, BTS, L3890.6006, L100.0100 #### [facility] [address] [place], [address] CO2 [Moles/Vol] 21.0 mmol/L Normal 21.0-32.0 [facility] Comment on above: Performed By: #### L 501.0250, L509.8002, BTS, L3890.6006, L100.0100 #### [facility] [address] [place], [address] Creatinine [Mass/Vol] 0.42 mg/dL Low 0.70-1.20 [facility] Comment on above: Performed By: #### L 501.0250, L509.8002, BTS, L3890.6006, L100.0100 #### [facility] [address] [place], [address] GAP 10 Normal 5-15 [facility] Comment on above: Performed By: #### L 501.0250, L509.8002, BTS, L3890.6006, L100.0100 #### [facility] [address] [place], [address] GFR/1.73 sq M.predicted among non-blacks MDRD (S/P/Bld) [Vol rate/Area] 132 mL/min/{1.73_m2} Normal >60 [facility] Comment on above: Result Comment: mL/m in/1.73m2 CKD-EPI Creatinine Equation (2020) Performed By: #### L 501.0250, L509.8002, BTS, L3890.6006, L100.0100 #### [facility] [address] [place], [address] Globulin (S) [Mass/Vol] 2.3 g/dL Normal 2.2-4.2 [facility] Comment on above: Performed By: #### L 501.0250, L509.8002, BTS, L3890.6006, L100.0100 #### [facility] [address] [place], [address] Glucose [Mass/Vol] 78 mg/dL Normal 70-99 [facility] Comment on above: Performed By: #### L 501.0250, L509.8002, BTS, L3890.6006, L100.0100 #### [facility] [address] [place], [address] Potassium [Moles/Vol] 3.8 mmol/L Normal 3.3-5.1 [facility] Comment on above: Performed By: #### L 501.0250, L509.8002, BTS, L3890.6006, L100.0100 #### [facility] [address] [place], [address] Sodium [Moles/Vol] 136 mmol/L Normal 133-145 [facility] Comment on above: Performed By: #### L 501.0250, L509.8002, BTS, L3890.6006, L100.0100 #### [facility] [address] [place], [address] T BILI < 0.15 Normal 0.00-1.30 [facility] Comment on above: Performed By: #### L 501.0250, L509.8002, BTS, L3890.6006, L100.0100 #### [facility] [address] [place], [address] T PROT 5.9 g/dL Normal 5.9-8.4 [facility] Comment on above: Performed By: #### L 501.0250, L509.8002, BTS, L3890.6006, L100.0100 #### [facility] [address] [place], [address] Urea nitrogen [Mass/Vol] 8 mg/dL Normal 4-19 [facility] Comment on above: Performed By: #### L 501.0250, L509.8002, BTS, L3890.6006, L100.0100 #### [facility] [address] [place], [address] Eosinophil percentageOrdered By: Samm Colbert on 10-17-2024 Eosinophils/100 WBC (Bld) 0.9 % 0-5 [facility] Erythrocyte distribution wid th ratioOrdered By: Samm Colbert on 10-17-2024 Erythrocyte distribution width (RBC) [Ratio] 12.6 % 11.6-14.6 [facility] Erythrocyte distribution wid th standard deviationOrdered By: Samm Colbert on 10-17-2024 Erythrocyte distribution width (RBC) [Ratio] 41.7 fl 35.1-43.9 [facility] Ferritinon 10-17-2024 Ferritin [Mass/Vol] 14 ng/mL Low 22-378 [facility] Comment on above: Performed By: #### L 501.0250, L509.8002, BTS, L3890.6006, L100.0100 #### [facility] [address] [place], [place], [id number] Glomerular filtration rate ( GFR) estimation/1.73 sq m using serum, plasma, or whole bOrdered By: Samm Colbert on 10-17-2024 GFR/1.73 sq M.predicted among non-blacks MDRD (S/P/Bld) [Vol rate/Area] 132 mL/min/{1.73_m2} >60 [facility] Comment on above: mL/min/1.73m2 CKD-EP I Creatinine Equation (2020) Hematocrit Auto (Bld) [Volum e fraction]Ordered By: Samm Colbert on 10-17-2024 Hematocrit (Bld) [Volume fraction] 37.7 % 37-47 [facility] Hemoglobin measurementOrdere d By: Samm Colbert on 10-17-2024 Hemoglobin (Bld) [Mass/Vol] 12.8 g/dL 12.0-15.0 [facility] Immature granulocytes/100 WB C Auto (Bld)Ordered By: Samm Colbert on 10-17-2024 Immature granulocytes/100 WBC (Bld) 0.500 % 0.0-0.9 [facility] Comment on above: IG% - Immature Granu locytes (promyelocytes, myelocytes and metamyelocytes) > 1% indicates that a LEFT SHIFT is Present. Iron measurement (mass/mass) Ordered By: Samm Colbert on 10-17-2024 Iron (Unsp spec) [Mass/Mass] 87 ug/dL 50-170 [facility] Iron+Iron Binding Capacityon 10-17-2024 Iron [Mass/Vol] 87 ug/dL Normal 50-170 [facility] Comment on above: Performed By: #### L 501.0250, L509.8002, BTS, L3890.6006, L100.0100 #### [facility] [address] [place], [place], [id number] IRON SATURATION 21.0 Normal 13-59 [facility] Comment on above: Performed By: #### L 501.0250, L509.8002, BTS, L3890.6006, L100.0100 #### [facility] [address] [place], [address] TIBC 425 ug/dL Normal 250-450 [facility] Comment on above: Performed By: #### L 501.0250, L509.8002, BTS, L3890.6006, L100.0100 #### [facility] [address] [place], [address] UIBC 338 ug/dL Normal 228-428 [facility] Comment on above: Performed By: #### L 501.0250, L509.8002, BTS, L3890.6006, L100.0100 #### [facility] [address] [place], [address] LDHon 10-17-2024 LDH 157 U/L Normal 84-246 [facility] Comment on above: Order Comment: 1 Performed By: #### L 501.0250, L509.8002, BTS, L3890.6006, L100.0100 #### [facility] [address] [place], [address] Laboratory - Chemistry and C hemistry - challengeOrdered By: Samm Colbert on 10-17-2024 AST [Catalytic activity/Vol] 21 U/L <32 [facility] Lactate dehydrogenase (LDH) measurementOrdered By: Samm Colbert on 10-17-2024 LDH [Catalytic activity/Vol] 157 U/L 84-246 [facility] MCV (mean corpuscular volume ) determinationOrdered By: Samm Colbert on 10-17-2024 MCV (RBC) [Entitic vol] 91.1 fL 81-99 [facility] Mean corpuscular hemoglobin (MCH) determinationOrdered By: Samm Colbert on 10-17-2024 MCH (RBC) [Entitic mass] 30.9 pg 27.0-32.0 [facility] Mean corpuscular hemoglobin concentration (MCHC) determinationOrdered By: Samm Colbert on 10-17-2024 MCHC (RBC) [Mass/Vol] 34.0 g/dL 32-36 [facility] Mean platelet volume determi nationOrdered By: Samm Colbert on 10-17-2024 Platelet mean volume (Bld) [Entitic vol] 11.9 fL 6.2-12.0 [facility] Monocyte percentageOrdered B y: Samm Colbert on 10-17-2024 Monocytes/100 WBC (Bld) 6.7 % 0-10 [facility] Neutrophil percentageOrdered By: [place] Sayra on 10-17-2024 Neutrophils/100 WBC (Bld) 74.9 % High 47-70 [facility] No Panel InformationOrdered By: Samm Colbert on 10-17-2024 Unsaturated Iron Binding Capacity 338 ug/dL 228-428 [facility] Nucleated red blood cell per centageOrdered By: Samm Colbert on 10-17-2024 Nucleated RBC/100 WBC (Bld) [Ratio] 0 % 0-5 [facility] Oncology Visit Reporton 10-01 Oncology Visit Report [facility] [address] [place] [address] OFFICE VISIT Date of Service: 10/17/24931 MR#: [id number] Acct: [id number] Name: MARIBEL CROCKETT Rep #: [id number] : 1990 From: Samm Colbert MD Age/Sex: 34/F [place] [facility] [place] Status: Signed HPI Subjective Date of Service [...] from the left nostril on and off. 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 Normal [facility] Platelet countOrdered By: Aidee Colbert on 10-17-2024 Platelets (Bld) [#/Vol] 105 10*3/uL Low 150-450 [facility] Potassium measurement (mass/ volume)Ordered By: Samm Colbert on 10-17-2024 Potassium (Unsp spec) [Mass/Vol] 3.8 mmol/L 3.3-5.1 [facility] RBC Auto (Bld) [#/Vol]Ordere d By: Samm Colbert on 10-17-2024 RBC (Bld) [#/Vol] 4.14 10*6/uL Low 4.2-5.4 [facility] Serum creatinine measurement (mass/volume)Ordered By: Samm Colbert on 10-17-2024 Creatinine [Mass/Vol] 0.42 mg/dL Low 0.70-1.20 [facility] Serum globulin measurementOr dered By: Samm Colbert on 10-17-2024 Globulin (S) [Mass/Vol] 2.3 g/dL 2.2-4.2 [facility] Serum glucose measurement (m ass/volume)Ordered By: Samm Colbert on 10-17-2024 Glucose [Mass/Vol] 78 mg/dL 70-99 [facility] Serum or plasma alanine elizondo otransferase (ALT) measurementOrdered By: Samm Colbert on 10-17-2024 ALT [Catalytic activity/Vol] 15 U/L <35 [facility] Serum or plasma albumin kourtney urement (mass/volume)Ordered By: Samm Colbert on 10-17-2024 Albumin [Mass/Vol] 3.5 g/dL 3.5-5.0 [facility] Serum or plasma albumin/glob ulin mass ratioOrdered By: Samm Colbert on 10-17-2024 Albumin/Globulin [Mass ratio] 1.5 {ratio} 0.9-2.4 [facility] Serum or plasma alkaline nhung sphatase measurementOrdered By: Samm Colbert on 10-17-2024 ALP [Catalytic activity/Vol] 54 U/L 35-104 [facility] Serum or plasma calcium kourtney urement (mass/volume)Ordered By: Samm Colbert on 10-17-2024 Calcium [Mass/Vol] 8.2 mg/dL 7.6-11.0 [facility] Serum or plasma ferritin mary surement (mass/volume)Ordered By: Samm Colbert on 10-17-2024 Ferritin [Mass/Vol] 14 ng/mL Low 22-378 [facility] Serum or plasma iron saturat ion measurement (mass fraction)Ordered By: Samm Colbert on 10-17-2024 Iron saturation [Mass fraction] 21.0 % 13-59 [facility] Serum or plasma urea nitroge n measurement (mass/volume)Ordered By: Samm Colbert on 10-17-2024 Urea nitrogen [Mass/Vol] 8 mg/dL 4-19 [facility] Sodium levelOrdered By: Carlos Colbert on 10-17-2024 Sodium [Moles/Vol] 136 mmol/L 133-145 [facility] Total proteinOrdered By: Gilmer Colbert on 10-17-2024 Protein [Mass/Vol] 5.9 g/dL 5.9-8.4 [facility] Vitamin B12on 10-17-2024 Cobalamin (Vitamin B12) [Mass/Vol] 523 pg/mL Normal 180-914 [facility] Comment on above: Performed By: #### L 501.0250, L509.8002, BTS, L3890.6006, L100.0100 #### [facility] [address] [place], [place], [id number] Vitamin B12 ser/plasOrdered By: Samm Colbert on 10-17-2024 Cobalamin (Vitamin B12) [Mass/Vol] 523 pg/mL 180-914 [facility] White blood cell (WBC) count Ordered By: Samm Colbert on 10-17-2024 WBC (Bld) [#/Vol] 9.3 10*3/uL 4.4-11.0 [facility] Urine Cultureon 10-11-2024 URC #2 FORMERLY ACTINOMY GAURANG SPP. Susceptibility not normally performed on this organism. Urine Culture Urine Culture Urine Culture Urine Culture Urine Culture Streptococcus mitis/ oralis [place] Count 11,000-25,000 [place] odontolyticus [place] odontolyticus Streptococcus mitis/ oralis: REACTION Ampicillin Islt [place] <=0.25 S Penicillin G Islt [place] 0.12 Cefotaxime Islt [place] <=0.12 S cefTRIAXone Islt [place] <=0.12 S Linezolid Islt [place] <=2 S Vancomycin Islt [place] 0.5 S Normal [facility] Comment on above: Performed By: #### L 501.0250, L509.8002, BTS, L3890.6006, L100.0100 #### [facility] [address] [place], [place], [address] Laboratory - Chemistry and C hemistry - challengeOrdered By: Kamla Zheng on 10-04-2024 Bilirubin Ql (U) Negative [facility] Glucose Ql (U) Negative [facility] Ketones Ql (U) Negative [facility] pH (U) 8.0 [pH] [facility] Specific gravity (U) [Rel density] 1.010 [facility] Urobilinogen (U) [Mass/Vol] Negative [facility] Laboratory - Hematology and Cell countsOrdered By: Kamla Zheng on 10-04-2024 Hemoglobin Ql (U) Negative [facility] Laboratory - Specimen inform ationOrdered By: Kamla Zheng on 10-04-2024 Clarity (U) Cloudy [facility] Color (U) YELLOW [facility] Laboratory - UrinalysisOrder ed By: Kamla Zheng on 10-04-2024 Nitrite Ql (U) Negative [facility] Protein Ql (U) Negative [facility] No Panel InformationOrdered By: Kamla Zheng on 10-04-2024 Urine Leukocytes Positive [facility] Urine Non-Hemolyzed Blood Negative [facility] Skin Pass Operator Office Visit Reporton 10-04-2024 Skin Pass Operator Office Visit Report [facility] [address], [facility] [address] [place] [address] OFFICE VISIT Date of Service: 10/04/24 MR#: [id number] Acct: [id number] Name: MARIBEL CROCKETT Rep #: [id number] : 1990 Provider: MITZI johnson Age/Sex: 34/F [place] [facility] [place]: Signed Intake Vital Signs 10/02/24 14:24 10/04/24 09:41 10/04/24 10:35 Height 5 ft 7.5 in 5 ft 7.5 in 5 ft 7.5 in Weight: 139 lb 4 oz 139 lb BMI 21.4 21.4 BP 96/65 109/70 Intake Visit Reasons: Possible Prolapse 26w6d per Chief Complaint: 26 wk OB Poss. 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 [place] Rush Delivery Date: 08/24/19 Last Updated [...] -???-???-???-???-???-???- ???-???-???-???-???-???- (more content not included)... Normal [facility] Urine cultureOrdered By: Elias Zheng on 10-04-2024 Bacteria identified Cx Nom (U) Streptococcus mitis/ oralis Abnormal [facility] Bacteria identified Cx Nom (U) [place] odontolyticus Abnormal [facility] Absolute lymphocyte countOrd ered By: Kecia Yunier on 10-02-2024 Lymphocytes Auto (Unsp spec) [#/Vol] 1.49 10*3/uL 0.83-4.51 [facility] Absolute neutrophil countOrd ered By: Kecia Yunier on 10-02-2024 Neutrophils (Bld) [#/Vol] 7.9 10*3/uL High 2.0-7.7 [facility] Automated lymphocyte count a s percentage of total leukocytesOrdered By: Kecia Faye on 10-02-2024 Lymphocytes/100 WBC Auto (Unsp spec) 14.8 % Low 19-41 [facility] Basophil percentageOrdered B y: Kecia Faye on 10-02-2024 Basophils/100 WBC (Bld) 0.3 % 0-1 [facility] CBC W/Diff, Automatedon Absolute Lymph 1.49 X10 3/uL Normal 0.83-4.51 [facility] Comment on above: Performed By: #### L 501.0250, L509.8002, BTS, L3890.6006, L100.0100 #### [facility] [address] [place], [address] Absolute Neut 7.9 X10 3/uL High 2.0-7.7 [facility] Comment on above: Performed By: #### L 501.0250, L509.8002, BTS, L3890.6006, L100.0100 #### [facility] [address] [place], [address] Basophils/100 WBC (Bld) 0.3 % Normal 0-1 [facility] Comment on above: Performed By: #### L 501.0250, L509.8002, BTS, L3890.6006, L100.0100 #### [facility] [address] [place], [address] Eosinophils/100 WBC (Bld) 0.8 % Normal 0-5 [facility] Comment on above: Performed By: #### L 501.0250, L509.8002, BTS, L3890.6006, L100.0100 #### [facility] [address] [place], [address] Erythrocyte distribution width (RBC) [Ratio] 12.3 % Normal 11.6-14.6 [facility] Comment on above: Performed By: #### L 501.0250, L509.8002, BTS, L3890.6006, L100.0100 #### [facility] [address] [place], [address] Hematocrit (Bld) [Volume fraction] 36.7 % Low 37-47 [facility] Comment on above: Performed By: #### L 501.0250, L509.8002, BTS, L3890.6006, L100.0100 #### [facility] [address] [place], [address] Hemoglobin (Bld) [Mass/Vol] 12.4 g/dL Normal 12.0-15.0 [facility] Comment on above: Performed By: #### L 501.0250, L509.8002, BTS, L3890.6006, L100.0100 #### [facility] [address] [place], [address] IG% 0.900 Normal 0.0-0.9 [facility] Comment on above: Result Comment: IG% - Immature Granulocytes (promyelocytes, myelocytes and metamyelocytes) > 1% indicates that a LEFT SHIFT is Present. Performed By: #### L 501.0250, L509.8002, BTS, L3890.6006, L100.0100 #### [facility] [address] [place], [address] Lymphocytes/100 WBC (Bld) 14.8 % Low 19-41 [facility] Comment on above: Performed By: #### L 501.0250, L509.8002, BTS, L3890.6006, L100.0100 #### [facility] [address] [place], [address] MCH (RBC) [Entitic mass] 31.1 pg Normal 27.0-32.0 [facility] Comment on above: Performed By: #### L 501.0250, L509.8002, BTS, L3890.6006, L100.0100 #### [facility] [address] [place], [address] MCHC (RBC) [Mass/Vol] 33.8 g/dL Normal 32-36 [facility] Comment on above: Performed By: #### L 501.0250, L509.8002, BTS, L3890.6006, L100.0100 #### [facility] [address] [place], [address] MCV (RBC) [Entitic vol] 92.0 fL Normal 81-99 [facility] Comment on above: Performed By: #### L 501.0250, L509.8002, BTS, L3890.6006, L100.0100 #### [facility] [address] [place], [address] Monocytes/100 WBC (Bld) 5.1 % Normal 0-10 [facility] Comment on above: Performed By: #### L 501.0250, L509.8002, BTS, L3890.6006, L100.0100 #### [facility] [address] [place], [address] Neutrophils/100 WBC (Bld) 78.1 % High 47-70 [facility] Comment on above: Performed By: #### L 501.0250, L509.8002, BTS, L3890.6006, L100.0100 #### [facility] [address] [place], [address] Nucleated RBC (Bld) [#/Vol] 0 10*3/uL Normal 0-5 [facility] Comment on above: Performed By: #### L 501.0250, L509.8002, BTS, L3890.6006, L100.0100 #### [facility] [address] [place], [address] Platelet mean volume (Bld) [Entitic vol] 12.5 fL High 6.2-12.0 [facility] Comment on above: Performed By: #### L 501.0250, L509.8002, BTS, L3890.6006, L100.0100 #### [facility] [address] [place], [address] Platelets (Bld) [#/Vol] 103 10*3/uL Low 150-450 [facility] Comment on above: Performed By: #### L 501.0250, L509.8002, BTS, L3890.6006, L100.0100 #### [facility] [address] [place], [address] RBC (Bld) [#/Vol] 3.99 10*6/uL Low 4.2-5.4 [facility] Comment on above: Performed By: #### L 501.0250, L509.8002, BTS, L3890.6006, L100.0100 #### [facility] [address] [place], [address] RDW SD 41.4 fl Normal 35.1-43.9 [facility] Comment on above: Performed By: #### L 501.0250, L509.8002, BTS, L3890.6006, L100.0100 #### [facility] [address] [place], [address] WBC (Bld) [#/Vol] 10.1 10*3/uL Normal 4.4-11.0 [facility] Comment on above: Performed By: #### L 501.0250, L509.8002, BTS, L3890.6006, L100.0100 #### [facility] [address] [place], [place], [address] Eosinophil percentageOrdered By: Kecia Faye on 10-02-2024 Eosinophils/100 WBC (Bld) 0.8 % 0-5 [facility] Erythrocyte distribution wid th ratioOrdered By: Kecia Faye on 10-02-2024 Erythrocyte distribution width (RBC) [Ratio] 12.3 % 11.6-14.6 [facility] Erythrocyte distribution wid th standard deviationOrdered By: Kecia Faye on 10-02-2024 Erythrocyte distribution width (RBC) [Ratio] 41.4 fl 35.1-43.9 [facility] Glucose Challenge Gest 1H 50 boogie 10-02-2024 GLU GEST 50g 1H 110 mg/dL Normal 70-140 [facility] Comment on above: Performed By: #### L 501.0250, L509.8002, BTS, L3890.6006, L100.0100 #### [facility] [address] [facility] [place], [place], [id number] Glucose measurement at 2 james rs post-dose gestational glucose tolerance testOrdered By: Kecia Faye on 10-02-2024 Glucose [Mass/Vol] 110 mg/dL 70-140 [facility] HIVon 10-02-2024 HIV Non-Reactive Normal Nonreactive [facility] Comment on above: Result Comment: Non- Reactive Reactive Repeatedly reactive samples must be confirmed according to CDC recommended confirmatory algorithms. The subresults for either HIVAG or AHIV can be used as an aid in the selection of the confirmation algorithm for reactive samples. Send out specimens with Reactive results to [facility] for confirmation. Order the HIV antibody detection and differentiation: lc#[id number] Performed By: #### L 501.0250, L509.8002, BTS, L3890.6006, L100.0100 #### [facility] [address] [place], [address] Hematocrit Auto (Bld) [Volum e fraction]Ordered By: Kecia Faye on 10-02-2024 Hematocrit (Bld) [Volume fraction] 36.7 % Low 37-47 [facility] Hemoglobin measurementOrdere d By: Kecia Faye on 10-02-2024 Hemoglobin (Bld) [Mass/Vol] 12.4 g/dL 12.0-15.0 [facility] Immature granulocytes/100 WB C Auto (Bld)Ordered By: Kecia Faye on 10-02-2024 Immature granulocytes/100 WBC (Bld) 0.900 % 0.0-0.9 [facility] Comment on above: IG% - Immature Granu locytes (promyelocytes, myelocytes and metamyelocytes) > 1% indicates that a LEFT SHIFT is Present. Laboratory - Chemistry and C hemistry - challengeOrdered By: Kecia Faye on 10-02-2024 Glucose Ql (U) Negative [facility] - UrinalysisOrder ed By: Kecia Faye on 10-02-2024 Protein Ql (U) Negative [facility] MCV (mean corpuscular volume ) determinationOrdered By: Kecia Faye on 10-02-2024 MCV (RBC) [Entitic vol] 92.0 fL 81-99 [facility] Mean corpuscular hemoglobin (MCH) determinationOrdered By: Kecia Faye on 10-02-2024 MCH (RBC) [Entitic mass] 31.1 pg 27.0-32.0 [facility] Mean corpuscular hemoglobin concentration (MCHC) determinationOrdered By: Kecia Faye on 10-02-2024 MCHC (RBC) [Mass/Vol] 33.8 g/dL 32-36 [facility] Mean platelet volume determi nationOrdered By: Kecia Faye on 10-02-2024 Platelet mean volume (Bld) [Entitic vol] 12.5 fL High 6.2-12.0 [facility] Monocyte percentageOrdered B y: Kecia Faye on 10-02-2024 Monocytes/100 WBC (Bld) 5.1 % 0-10 [facility] Neutrophil percentageOrdered By: Kecia Faye on 10-02-2024 Neutrophils/100 WBC (Bld) 78.1 % High 47-70 [facility] No Panel InformationOrdered By: Kecia Faye on 10-02-2024 HIV (1&2) Antibody Non-Reactive Nonreactive [facility] Comment on above: Non-ReactiveReactive Repeatedly reactive samples must be confirmed according to CDC recommended confirmatory algorithms. The subresults for either HIVAG or AHIV can be used as an aid in the selection of the confirmation algorithm for reactive samples.Send out specimens with Reactive results to [facility] for confirmation.Order the HIV antibody detection and differentiation: #[id number] Nucleated red blood cell per centageOrdered By: Kecia Faye on 10-02-2024 Nucleated RBC/100 WBC (Bld) [Ratio] 0 % 0-5 [facility] Skin Pass Operator Office Visit Reporton 10-02-2024 Skin Pass Operator Office Visit Report [facility] [address], [address] [place] [address] OFFICE VISIT Date of Service: 10/02/24 MR#: [id number] Acct: [id number] Name: MARIBEL CROCKETT Rep #: [id number] : 1990 Provider: LEYLA Masters ams Age/Sex: 34/F [place] [facility] Status: Signed Intake Vital Signs 08/09/24 15:05 09/06/24 14:13 10/02/24 14:24 Height 5 ft 7.5 in 5 ft 7.5 in 5 ft 7.5 in Weight: 139 lb 4 oz BMI 21.4 BP 96/65 Intake Visit Reasons: 27 WK OB/GLUCOSE Chief Complaint: 27wk OB Appeals Officer Required: No Is patient in pain?: No [...] 2 current occupational status: unemployed current occupation: [employer] pets and animals: Yes pets and [...] physical activity do you participate in: none ramesh/mosque: Mosque seatbelt use: always do you feel safe at home: Yes 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 Date Name GA/Weeks Outcome Route Bth Weight Gen Labor Lgth Anesthesia Del Locatn Provider FOB 08/24/19 Jose Elykadi 36 live - vacuum 6lb 8 oz Female [address] [facility] Jg Ruhs 02/22/21 [place] 38 live - full term 6# 8oz Female epidural [facility] [place] Delivery Date: 08/24/19 Last Updated [...] -???-???-???-???-???-???- ???-???-???-?? (more content not included)... Normal [facility] Platelet countOrdered By: Rian Faye on 10-02-2024 Platelets (Bld) [#/Vol] 103 10*3/uL Low 150-450 [facility] RBC Auto (Bld) [#/Vol]Ordere d By: Kecia Faye on 10-02-2024 RBC (Bld) [#/Vol] 3.99 10*6/uL Low 4.2-5.4 [facility] Syphilis Antibodieson 2024 Syphilis Abs Non-Reactive Normal Nonreactive [facility] Comment on above: Performed By: #### L 501.0250, L509.8002, BTS, L3890.6006, L100.0100 #### [facility] [address] [place], [address] Type AND Screenon 10-02-2024 Ab SCREEN GEL Negative Normal [facility] Comment on above: Order Comment: PN Performed By: #### L 501.0250, L509.8002, BTS, L3890.6006, L100.0100 #### [facility] [address] [place], [address] White blood cell (WBC) count Ordered By: Kecia Faye on 10-02-2024 WBC (Bld) [#/Vol] 10.1 10*3/uL 4.4-11.0 [facility] Laboratory - Chemistry and C hemistry - challengeOrdered By: Kamla Zheng on 09-06-2024 Glucose Ql (U) Negative [facility] - UrinalysisOrder ed By: Kamla Zheng on 09-06-2024 Protein Ql (U) Negative [facility] Skin Pass Operator Office Visit Reporton 09-06-2024 Skin Pass Operator Office Visit Report [address], [address] [place] [address] OFFICE VISIT Date of Service: 09/06/24 MR#: [id number] Acct: [id number] Name: MARIBEL CROCKETT Rep #: [id number] : 1990 Provider: MITZI johnson Age/Sex: 34/F Location[place] [facility] Status: Signed Intake Vital Signs 07/14/24 13:29 08/09/24 15:05 09/06/24 14:13 Height 5 ft 7.5 in 5 ft 7.5 in 5 ft 7.5 in Weight: 134 lb 8 oz BMI 20.7 BP 106/70 Intake Visit Reasons: 23 wk ob Chief Complaint: 23 Week OB Appeals Officer Required: No Is patient in pain?: No [...] 2 current occupational status: unemployed current occupation: [employer] pets and animals: Yes pets and [...] physical activity do you participate in: none ramesh/mosque: Mosque seatbelt use: always do you feel safe at home: Yes 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 (more content not included)... Normal [facility] - Chemistry and C hemistry - challengeOrdered By: Citlalli Cabrera on 08-09-2024 Glucose Ql (U) Negative [facility] - UrinalysisOrder ed By: Citlalli Cabrera on 08-09-2024 Protein Ql (U) Negative [facility] Skin Pass Operator Office Visit Reporton 08-09-2024 Skin Pass Operator Office Visit Report [facility] [address], [address] [place] [address] OFFICE VISIT Date of Service: 08/09/24 MR#: [id number] Acct: [id number] Name: MARIBEL CROCKETT Rep #: [id number] : 1990 Provider: Dr. 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 [place] Delivery Date: 08/24/19 Last Updated [...] LMP 03 (more content not included)... Normal [facility] - Chemistry and C hemistry - challengeOrdered By: Rosalba Mike on 07-14-2024 Glucose Ql (U) Negative [facility] - UrinalysisOrder ed By: Rosalba Mike on 07-14-2024 Protein Ql (U) Negative [facility] Skin Pass Operator Office Visit Reporton 07-14-2024 Skin Pass Operator Office Visit Report [facility] [address], [address] [place] [address] OFFICE VISIT Date of Service: 07/14/24 MR#: [id number] Acct: [id number] Name: MARIBEL CROCKETT Rep #: [id number] : 1990 Provider: Dr. 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 (more content not included)... Normal [facility] PAP IG HPV APTIMA 16/18,45on 07-04-2024 ORDER Normal [facility] Comment on above: Order Comment: Clini [...] image guided system. Performed by Domingo Solis, Implementation Consultant (ASCP) This nucleic acid amplification test detects fourteen high-risk HPV types (16,18,31,33,35,39,45,51,52,56,58,59,66,68) without differentiation. HPV RESULTS: HPV Aptima: Negative HPV Genotype Reflex Criteria not met, HPV Genotype not performed. TESTING PERFORMED AT [facility]. ORIGINAL REPORT ON FILE IN LAB CONTAINS ADDITIONAL TEST SITE INFORMATION. Performed By: #### L 100.0500, L501.1400, L501.4405, L501.0900, L501.1105, L501.4100 #### [facility] [address] [place], [address] Chlamydia/GC GISELA aptimaon CHLAMY,NUC ACID Negative [facility] Comment on above: Performed By: #### L 501.0250, L509.8002, BTS, L3890.6006, L100.0100 #### [facility] [address] [place], [address] GC BY NUC ACID Negative [facility] Comment on above: Performed By: #### L 501.0250, L509.8002, BTS, L3890.6006, L100.0100 #### [facility] [address] [place], [address] NATERAon 06-13-2024 NATURA SEE SCANNED REPORT Normal [facility] Comment on above: Performed By: #### L 501.0250, L509.8002, BTS, L3890.6006, L100.0100 #### [facility] [address] [place], [address] Urine Cultureon 06-10-2024 URC Culture exhibits no growth. Normal [facility] Comment on above: Performed By: #### L 501.0250, L509.8002, BTS, L3890.6006, L100.0100 #### [facility] [address] [place], [address] Absolute lymphocyte countOrd ered By: Citlalli Napierjavier on 06-09-2024 Lymphocytes Auto (Unsp spec) [#/Vol] 1.15 10*3/uL 0.83-4.51 [facility] Absolute neutrophil countOrd ered By: Citlallilm Napierjavier on 06-09-2024 Neutrophils (Bld) [#/Vol] 4.6 10*3/uL 2.0-7.7 [facility] Automated lymphocyte count a s percentage of total leukocytesOrdered By: Citlalli Deborah on 06-09-2024 Lymphocytes/100 WBC Auto (Unsp spec) 18.5 % Low 19-41 [facility] Basophil percentageOrdered B y: Citlalli Cabrera on 06-09-2024 Basophils/100 WBC (Bld) 0.5 % 0-1 [facility] CBC W/Diff, Automatedon Absolute Lymph 1.15 X10 3/uL Normal 0.83-4.51 [facility] Comment on above: Performed By: #### L 501.0250, L509.8002, BTS, L3890.6006, L100.0100 #### [facility] [address] [place], [address] Absolute Neut 4.6 X10 3/uL Normal 2.0-7.7 [facility] Comment on above: Performed By: #### L 501.0250, L509.8002, BTS, L3890.6006, L100.0100 #### [facility] [address] [place], [address] Basophils/100 WBC (Bld) 0.5 % Normal 0-1 [facility] Comment on above: Performed By: #### L 501.0250, L509.8002, BTS, L3890.6006, L100.0100 #### [facility] [address] [place], [address] Eosinophils/100 WBC (Bld) 0.6 % Normal 0-5 [facility] Comment on above: Performed By: #### L 501.0250, L509.8002, BTS, L3890.6006, L100.0100 #### [facility] [address] [place], [address] Erythrocyte distribution width (RBC) [Ratio] 11.9 % Normal 11.6-14.6 [facility] Comment on above: Performed By: #### L 501.0250, L509.8002, BTS, L3890.6006, L100.0100 #### [facility] [address] [place], [address] Hematocrit (Bld) [Volume fraction] 43.3 % Normal 37-47 [facility] Comment on above: Performed By: #### L 501.0250, L509.8002, BTS, L3890.6006, L100.0100 #### [facility] [address] [place], [address] Hemoglobin (Bld) [Mass/Vol] 14.6 g/dL Normal 12.0-15.0 [facility] Comment on above: Performed By: #### L 501.0250, L509.8002, BTS, L3890.6006, L100.0100 #### [facility] [address] [place], [address] IG% 0.300 Normal 0.0-0.9 [facility] Comment on above: Result Comment: IG% - Immature Granulocytes (promyelocytes, myelocytes and metamyelocytes) > 1% indicates that a LEFT SHIFT is Present. Performed By: #### L 501.0250, L509.8002, BTS, L3890.6006, L100.0100 #### [facility] [address] [place], [address] Lymphocytes/100 WBC (Bld) 18.5 % Low 19-41 [facility] Comment on above: Performed By: #### L 501.0250, L509.8002, BTS, L3890.6006, L100.0100 #### [facility] [address] [place], [address] MCH (RBC) [Entitic mass] 30.9 pg Normal 27.0-32.0 [facility] Comment on above: Performed By: #### L 501.0250, L509.8002, BTS, L3890.6006, L100.0100 #### [facility] [address] [place], [address] MCHC (RBC) [Mass/Vol] 33.7 g/dL Normal 32-36 [facility] Comment on above: Performed By: #### L 501.0250, L509.8002, BTS, L3890.6006, L100.0100 #### [facility] [address] [place], [address] MCV (RBC) [Entitic vol] 91.7 fL Normal 81-99 [facility] Comment on above: Performed By: #### L 501.0250, L509.8002, BTS, L3890.6006, L100.0100 #### [facility] [address] [place], [address] Monocytes/100 WBC (Bld) 6.7 % Normal 0-10 [facility] Comment on above: Performed By: #### L 501.0250, L509.8002, BTS, L3890.6006, L100.0100 #### [facility] [address] [place], [address] Neutrophils/100 WBC (Bld) 73.4 % High 47-70 [facility] Comment on above: Performed By: #### L 501.0250, L509.8002, BTS, L3890.6006, L100.0100 #### [facility] [address] [place], [address] Nucleated RBC (Bld) [#/Vol] 0 10*3/uL Normal 0-5 [facility] Comment on above: Performed By: #### L 501.0250, L509.8002, BTS, L3890.6006, L100.0100 #### [facility] [address] [place], [address] Platelet mean volume (Bld) [Entitic vol] 12.4 fL High 6.2-12.0 [facility] Comment on above: Performed By: #### L 501.0250, L509.8002, BTS, L3890.6006, L100.0100 #### [facility] [address] [place], [address] Platelets (Bld) [#/Vol] 115 10*3/uL Low 150-450 [facility] Comment on above: Performed By: #### L 501.0250, L509.8002, BTS, L3890.6006, L100.0100 #### [facility] [address] [place], [address] RBC (Bld) [#/Vol] 4.72 10*6/uL Normal 4.2-5.4 [facility] Comment on above: Performed By: #### L 501.0250, L509.8002, BTS, L3890.6006, L100.0100 #### [facility] [address] [place], [address] RDW SD 40.2 fl Normal 35.1-43.9 [facility] Comment on above: Performed By: #### L 501.0250, L509.8002, BTS, L3890.6006, L100.0100 #### [facility] [address] [place], [place], [address] WBC (Bld) [#/Vol] 6.2 10*3/uL Normal 4.4-11.0 [facility] Comment on above: Performed By: #### L 501.0250, L509.8002, BTS, L3890.6006, L100.0100 #### [facility] [address] [place], [address] Cervical or vaginal specimen microscopic examination by liquid based cytology (reportOrdered By: Citlalli Cabrera on 06-09-2024 Cytology report Cyto stain.thin prep Doc (Cvx/Vag) Not Reportable [facility] Chlamydia trachomatis rRNA d etection by probe and target amplification methodOrdered By: Citlalli Cabrera on 06-09-2024 C. trachomatis rRNA GISELA+probe Ql (Unsp spec) Negative [facility] Eosinophil percentageOrdered By: Citlalli Cabrera on 06-09-2024 Eosinophils/100 WBC (Bld) 0.6 % 0-5 [facility] Erythrocyte distribution wid th ratioOrdered By: Citlalli Cabrera on 06-09-2024 Erythrocyte distribution width (RBC) [Ratio] 11.9 % 11.6-14.6 [facility] Erythrocyte distribution wid th standard deviationOrdered By: Citlalli Cabrera on 06-09-2024 Erythrocyte distribution width (RBC) [Ratio] 40.2 fl 35.1-43.9 [facility] HIV - WCHon 06-09-2024 HIV Non-Reactive Normal Nonreactive [facility] Comment on above: Order Comment: Reaso n for Exam: Performed By: #### L 501.0250, L509.8002, BTS, L3890.6006, L100.0100 #### [facility] [address] [place], [address] HIV 1 and HIV-2 antibody ass ay with HIV-1 p24 antigen detectionOrdered By: Citlalli Cabrera on 06-09-2024 HIV 1+2 Ab+HIV1 p24 Ag IA Ql Non-Reactive Nonreactive [facility] Hematocrit Auto (Bld) [Volum e fraction]Ordered By: Citlalli Cabrera on 06-09-2024 Hematocrit (Bld) [Volume fraction] 43.3 % 37-47 [facility] Hemoglobin measurementOrdere d By: Citlalli Cabrera on 06-09-2024 Hemoglobin (Bld) [Mass/Vol] 14.6 g/dL 12.0-15.0 [facility] Hepatitis B Surface Antigeno n 06-09-2024 HEP B Surf Ag Non-Reactive [facility] Comment on above: Order Comment: Reaso n for Exam: Performed By: #### L 501.0250, L509.8002, BTS, L3890.6006, L100.0100 #### [facility] [address] [place], [place], [id number] Hepatitis C Antibodyon 06-09 Hepatitis C AB Non-Reactive [facility] Comment on above: Order Comment: Reaso n for Exam: Result Comment: Non Reactive: < 0.8 Equivocal: >/= 0.8 to < 1.0 Reactive: >/= 1.0 The CDC requires that a reactive/equivocal HCV antibody result be sent out for confirmation. HCV Quant by PCR testing. Performed By: #### L 501.0250, L509.8002, BTS, L3890.6006, L100.0100 #### [facility] [address] [facility] [place], [place], [id number] Immature granulocytes/100 WB C Auto (Bld)Ordered By: Citlalli Cabrera on 06-09-2024 Immature granulocytes/100 WBC (Bld) 0.300 % 0.0-0.9 [facility] Comment on above: IG% - Immature Granu locytes (promyelocytes, myelocytes and metamyelocytes) > 1% indicates that a LEFT SHIFT is Present. L509.8000on 06-09-2024 Syphilis Abs Non-Reactive Normal [facility] Comment on above: Order Comment: Reaso n for Exam: Performed By: #### L 501.0250, L509.8002, BTS, L3890.6006, L100.0100 #### [facility] [address] [place], [address] MCV (mean corpuscular volume ) determinationOrdered By: Citlalli Cabrera on 06-09-2024 MCV (RBC) [Entitic vol] 91.7 fL 81-99 [facility] Mean corpuscular hemoglobin (MCH) determinationOrdered By: Citlalli Cabrera on 06-09-2024 MCH (RBC) [Entitic mass] 30.9 pg 27.0-32.0 [facility] Mean corpuscular hemoglobin concentration (MCHC) determinationOrdered By: Citlalli Cabrera on 06-09-2024 MCHC (RBC) [Mass/Vol] 33.7 g/dL 32-36 [facility] Mean platelet volume determi nationOrdered By: Citlalli Cabrera on 06-09-2024 Platelet mean volume (Bld) [Entitic vol] 12.4 fL High 6.2-12.0 [facility] Monocyte percentageOrdered B y: Citlalli Cabrera on 06-09-2024 Monocytes/100 WBC (Bld) 6.7 % 0-10 [facility] NATERAon 06-09-2024 NATURA SEE SCANNED REPORT Normal [facility] Comment on above: Order Comment: This specimen has been REJECTED due to Laboratory criteria:Quanity Not Sufficient.Comments: NIPT with Gender only Result Comment: This specimen has been REJECTED due to Laboratory criteria: Quanity Not Sufficient. Performed By: #### L 501.0250, L509.8002, BTS, L3890.6006, L100.0100 #### [facility] [address] [place], [place], [phone] Neisseria gonorrhoeae nuclei c acid detection by amplified probe techniqueOrdered By: Citlalli Cabrera on 06-09-2024 N. gonorrhoeae DNA GISELA+probe Ql (Unsp spec) Negative [facility] Neutrophil percentageOrdered By: Citlalli Cabrera on 06-09-2024 Neutrophils/100 WBC (Bld) 73.4 % High 47-70 [facility] No Panel InformationOrdered By: Citlalli Cabrera on 06-09-2024 Pap Smear Test Ordered See comment [facility] Comment on above: IGP, Aptima HPV, [...] image guided system. Performed by Domingo Solis, Implementation Consultant (ASCP) This nucleic acid amplification test detects fourteen high-risk HPV types (16,18,31,33,35,39,45,51,52,56,58,59,66,68) without differentiation.HPV RESULTS: HPV Aptima: Negative HPV Genotype Reflex Criteria not met, HPV Genotype not performed. ____ TESTING PERFORMED AT [facility]. ORIGINAL REPORT ON FILE IN LAB CONTAINS ADDITIONAL TEST SITE INFORMATION. Nucleated red blood cell per centageOrdered By: Citlalli Cabrera on 06-09-2024 Nucleated RBC/100 WBC (Bld) [Ratio] 0 % 0-5 [facility] Skin Pass Operator Office Visit Reporton 06-09-2024 Skin Pass Operator Office Visit Report [facility] [address], [address] [place] [address] OFFICE VISIT Date of Service: 06/09/24 MR#: [id number] Acct: [id number] Name: MARIBEL CROCKETT Rep #: [id number] : 1990 Provider: Dr. 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 [place] Delivery Date: 08/24/19 Last Updated [...] ???-???-???-???-???-???- 10w (more content not included)... Normal [facility] Platelet countOrdered By: Khoi Cabrera on 06-09-2024 Platelets (Bld) [#/Vol] 115 10*3/uL Low 150-450 [facility] RBC Auto (Bld) [#/Vol]Ordere d By: Citlalli Cabrera on 06-09-2024 RBC (Bld) [#/Vol] 4.72 10*6/uL 4.2-5.4 [facility] Rubella IgGon 06-09-2024 Rubella IgG Reactive Normal Nonreactive [facility] Comment on above: Order Comment: Reaso n for Exam: Result Comment: Anti body Results Interpretation of Immune Status Non Reactive Presumed Non-Immune Equivocal Equivocal Reactive Presumed Immune Performed By: #### L 501.0250, L509.8002, BTS, L3890.6006, L100.0100 #### [facility] [address], [address] Serum Treponema species anti body detectionOrdered By: Citlalli Cabrera on 06-09-2024 Treponema sp Ab Ql (S) Non-Reactive [facility] Type AND Screenon 06-09-2024 ABO and Rh group Nom (Bld) Blood group A Rh(D) positive Normal [facility] Comment on above: Order Comment: PN Performed By: #### L 501.0250, L509.8002, BTS, L3890.6006, L100.0100 #### [facility] [address] [place], [address] Ab SCREEN GEL Negative Normal [facility] Comment on above: Order Comment: PN Performed By: #### L 501.0250, L509.8002, BTS, L3890.6006, L100.0100 #### [facility] [address] [place], [address] Urine cultureOrdered By: Felton Cabrera on 06-09-2024 Bacteria identified Cx Nom (U) Culture exhibits no growth. [facility] White blood cell (WBC) count Ordered By: Citlalli Cabrera on 06-09-2024 WBC (Bld) [#/Vol] 6.2 10*3/uL 4.4-11.0 [facility] Office Visiton 05-19-2022 Follow-up visit Diagnoses/Problems ADD [...] History of Breast augmentation 2014 History of [place] tooth extraction x4, 2010 Social History Caffeine use (V49.89) (Z78.9) Never smoker Occasional alcohol use Allergies No Known Drug Allergies Recorded By: Tonya Kearney; 04/07/2022 3:19:18 PM Current Meds Medication NameInstruction Tretinoin 0.05 % External Cream Vyvanse 30 MG Oral CapsuleTAKE 1 CAPSULE Daily Vitals Vital Signs Recorded: 19May2022 10:07AM Heart Rate94 Zzwfgfvd070, LUE, Sitting Fpvyfllnv70, LUE, Sitting Height5 ft 7.75 in Nwmqyf473 lb 8 oz BMI Trywlhurtr64.61 kg/m2 BSA Calculated1.65 Tobacco Useb) No Falls Screening (Age 18+)a) No falls within the last year O2 Dhvejnrlcq13 Physical Exam General: Alert and oriented, No [...] CONFIRMATIONon 04-21-2022 AMPHETAMINE SCREEN,U Negative Normal NEGATIVE [facility] Comment on above: Result Comment: CUTO FF LEVEL: 500 NG/ML Cross-reactivity has been reported with high concentrations of the following drugs: buproprion, chloroquine, chlorpromazine, ephedrine, mephentermine, fenfluramine, phentermine, phenylpropanolamine, pseudoephedrine, and propranolol. Performed By: #### D RUGR #### [place] [address] BARBITURATES SCREEN,U Negative Normal NEGATIVE [facility] Comment on above: Result Comment: CUTO FF LEVEL: 200 NG/ML Performed By: #### D RUGR #### [place] [id number] BENZODIAZEPINES SCREEN,U Negative Normal NEGATIVE [facility] Comment on above: Result Comment: CUTO FF LEVEL: 200 NG/ML Performed By: #### D RUGR #### [place] [address] CANNABINOIDS SCREEN,U Negative Normal NEGATIVE [facility] Comment on above: Result Comment: CUTO FF LEVEL: 50 NG/ML Performed By: #### D RUGR #### [place] [address] COCAINE METABOLITE SCREEN,U Negative Normal NEGATIVE [facility] Comment on above: Result Comment: CUTO FF LEVEL: 150 NG/ML Performed By: #### D RUGR #### [place] [address] DRUG SCREEN COMMENT SEE BELOW Normal [facility] Comment on above: Result Comment: Drug screen [...] directors. Performed By: #### D RUGR #### [place] [address] FENTANYL SCREEN,URINE Negative Normal NEGATIVE [facility] Comment on above: Result Comment: CUTO FF LEVEL: 5 NG/ML Performed By: #### D RUGR #### [place] [address] METHADONE SCREEN,U Negative Normal NEGATIVE [facility] Comment on above: Result Comment: CUTO FF LEVEL: 150 NG/ML The metabolite H-feysl-nodapzrijnjwvh (LAAM) is not detected by this method in concentrations that would be found in the urine of patients on LAAM therapy. Performed By: #### D RUGR #### [place] [id number] OPIATES SCREEN,U Negative Normal NEGATIVE [facility] Comment on above: Result Comment: CUTO FF LEVEL: 300 NG/ML The opiate screen does not detect fentanyl, meperidine, or tramadol. Oxycodone is not consistently detected (refer to Oxycodone Screen, Urine result). Performed By: #### D RUGR #### [place] [address] OXYCODONE SCREEN,U Negative Normal NEGATIVE [facility] Comment on above: Result Comment: CUTO FF LEVEL: 100 NG/ML This test will accurately detect both oxycodone and oxymorphone. Performed By: #### D RUGR #### [place] [address] PCP SCREEN,U Negative Normal NEGATIVE [facility] Comment on above: Result Comment: CUTO FF LEVEL: 25 NG/ML Cross-reactivity has been reported with dextromethorphan. Performed By: #### D RUGR #### [place] [id number] Laboratory - Drug toxicology on 04-21-2022 Amphetamines [...] CUTOFF LEVEL: 150 NG /ML The metabolite Y-qkuxs-etrsmteegnoorb (LAAM) is not detected by this method [...] History of Breast augmentation 2014 History of [place] tooth extraction x4, 2010 Social History Caffeine use (V49.89) (Z78.9) Never smoker Occasional alcohol use Allergies No Known Drug Allergies Recorded By: Tonya Kearney; 04/07/2022 3:19:18 PM Vitals Vital Signs Recorded: [id number] 10:04AM Heart Rate92 Hngrrsnx341, LUE, Sitting Dciqdjtor55, LUE, Sitting Height5 ft 7.75 in Yrerqv123 lb 9 oz BMI Bhdgkimojk90.08 kg/m2 BSA Calculated1.67 Tobacco Useb) No Falls Screening (Age 18+)a) No falls within the last year O2 Xpqzzovgfi12 Physical Exam General: Alert and oriented, No acute distress. Respiratory: Lungs are clear to auscultation, Respirations are non-labored, Breath sounds are equal. Cardiovascular: Normal rate, Regular rhythm, No murmur. Integumentary: Warm, Dry. Neurologic: Alert, Oriented, No focal deficits. Psychiatric: Cooperative, Appropriate mood AND affect. Results/Data Complete Blood Count + Mjmeddpaxszf56Xkb2686 10:42AMTamika Sandhu [Apr 20, 2022 9:04AM Tamika Sandhu] appt 04/21 Test NameResultFlagReference White Blood Cell Count4.4 x10E9/L4.4 - 11.3 Red Blood Cell Count4.50 x10E12/LSee Below Reference Range: 4.00 - 5.20 Swkxpxnmjq06.8 g/dLSee Below Reference Range: 12.0 - 16.0 HCT42.9 %See Below Reference Range: 36.0 - 46.0 MCV95 fL80 - 100 MCHC32.2 g/dLSee Below Reference Range: 32.0 - 36.0 Platelet Nhhzj134 x10E9/LL150 - 450 RDW-CV11.8 %See Below Reference [...] Reference Range: 0.00 - 0.10 Comprehensive Metabolic Elkfi38Gby6870 10:42Tamika Johnston [Apr 20, 2022 9:04AM Tamika Sandhu] appt 04/21 Test NameResultFlagReference Glucose, Serum73 mg/dLL74 - 99 Sodium, Flqeh961 mmol/L136 - 145 POTASSIUM3.6 mmol/L3.5 - 5.3 Chloride, Ccldr405 mmol/L98 - 107 Bicarbonate, Serum28 mmol/L21 - 32 Anion Gap, Serum13 mmol/L10 - 20 Blood Urea Nitrogen, Serum11 mg/dL6 - 23 CREATININE0.76 mg/dLSee Below Reference Range: 0.50 - 1.05 Calcium, Serum9.3 mg/dL8.6 - 10.3 Albumin, Serum4.5 g/dL3.4 - 5.0 ALKALINE SZLKIQCLOTV13 U/L33 - 110 Protein, Total Serum6.7 g/dL6.4 - 8.2 Bilirubin, Serum Total0.6 mg/dL0.0 - 1.2 ALT (SGPT), Serum17 U/L7 - 45 Patients treated with Sulfasalazine may generate falsely decreased results for ALT. GFR FEMALE>90 mL/min/1.73m2>90 CALCULATIONS OF ESTIMATED GFR ARE PERFORMED USING THE 2020 CKD-EPI STUDY REFIT EQUATION WITHOUT THE RACE VARIABLE FOR THE IDMS-TRACEABLE CREATININE METHODS. https://jasn.asnjournals. org/content/early//ASN.5880161831 AST22 U/L9 - 39 Lipid Fekqp03Ezc6910 10:42Tr Johnstonine [Apr 20, 2022 9:04AM Tamika Sandhu] appt 04/21 Test NameResultFlagReference Cholesterol, Cqsin382 mg/dL0 - 199 . AGE DESIRABLE BORDERLINE [...] GRAN 0.2 % Normal 0.0 - 0.9 [facility] Comment on above: Result Comment: Shala ture Granulocyte Count (IG) includes promyelocytes, myelocytes and metamyelocytes but does not include bands. Percent differential counts (%) should be interpreted in the context of the absolute cell counts (cells/L). Performed By: #### C BCDF #### [address] [address] Basophils (Bld) [#/Vol] 0.02 10*3/uL Normal 0.00 - 0.10 [facility] Comment on above: Performed By: #### C BCDF #### [address] [address] Basophils/100 WBC (Bld) 0.5 % Normal 0.0 - 2.0 [facility] Comment on above: Performed By: #### C BCDF #### [address] [address] Eosinophils (Bld) [#/Vol] 0.06 10*3/uL Normal 0.00 - 0.70 [facility] Comment on above: Performed By: #### C BCDF #### [address] [address] Eosinophils/100 WBC (Bld) 1.4 % Normal 0.0 - 6.0 [facility] Comment on above: Performed By: #### C BCDF #### [address] [address] Erythrocyte distribution width (RBC) [Ratio] 11.8 % Normal 11.5 - 14.5 [facility] Comment on above: Performed By: #### C BCDF #### [address] [address] Hematocrit (Bld) [Volume fraction] 42.9 % Normal 36.0 - 46.0 [facility] Comment on above: Performed By: #### C BCDF #### [address] [address] Hemoglobin (Bld) [Mass/Vol] 13.8 g/dL Normal 12.0 - 16.0 [facility] Comment on above: Performed By: #### C BCDF #### [address] [address] Lymphocytes (Bld) [#/Vol] 1.66 10*3/uL Normal 1.20 - 4.80 [facility] Comment on above: Performed By: #### C BCDF #### [address] [address] Lymphocytes/100 WBC (Bld) 37.7 % Normal 13.0 - 44.0 [facility] Comment on above: Performed By: #### C BCDF #### [address] [address] MCHC (RBC) [Mass/Vol] 32.2 g/dL Normal 32.0 - 36.0 [facility] Comment on above: Performed By: #### C BCDF #### [address] [address] MCV (RBC) [Entitic vol] 95 fL Normal 80 - 100 [facility] Comment on above: Performed By: #### C BCDF #### [address] [address] Monocytes (Bld) [#/Vol] 0.33 10*3/uL Normal 0.10 - 1.00 [facility] Comment on above: Performed By: #### C BCDF #### [address] [address] Monocytes/100 WBC (Bld) 7.5 % Normal 2.0 - 10.0 [facility] Comment on above: Performed By: #### C BCDF #### [address] [address] Neutrophils (Bld) [#/Vol] 2.32 10*3/uL Normal 1.20 - 7.70 [facility] Comment on above: Result Comment: Perc ent differential counts (%) should be interpreted in the context of the absolute cell counts (cells/L). Performed By: #### C BCDF #### [address] [address] Neutrophils/100 WBC (Bld) 52.7 % Normal 40.0 - 80.0 [facility] Comment on above: Performed By: #### C BCDF #### [address] [address] Platelets (Bld) [#/Vol] 130 10*3/uL Low 150 - 450 [facility] Comment on above: Performed By: #### C BCDF #### [address] [address] RBC 4.50 x10E12/L Normal 4.00 - 5.20 [facility] Comment on above: Performed By: #### C BCDF #### [address] [address] WBC (Bld) [#/Vol] 4.4 10*3/uL Normal 4.4 - 11.3 [facility] Comment on above: Performed By: #### C BCDF #### [address] [address] COMPREHENSIVE PANELon 2021 Albumin [Mass/Vol] 4.5 g/dL Normal 3.4 - 5.0 [facility] Comment on above: Performed By: #### C MP #### [address] [address] ALP [Catalytic activity/Vol] 44 U/L Normal 33 - 110 [facility] Comment on above: Performed By: #### C MP #### [address] [address] ALT [Catalytic activity/Vol] 17 U/L Normal 7 - 45 [facility] Comment on above: Result Comment: Annalisa ents treated with Sulfasalazine may generate falsely decreased results for ALT. Performed By: #### C MP #### [address] [address] Anion gap [Moles/Vol] 13 mmol/L Normal 10 - 20 [facility] Comment on above: Performed By: #### C MP #### [address] [address] AST [Catalytic activity/Vol] 22 U/L Normal 9 - 39 [facility] Comment on above: Performed By: #### C MP #### [address] [address] Bilirubin [Mass/Vol] 0.6 mg/dL Normal 0.0 - 1.2 [facility] Comment on above: Performed By: #### C MP #### [address] [address] Calcium [Mass/Vol] 9.3 mg/dL Normal 8.6 - 10.3 [facility] Comment on above: Performed By: #### C MP #### [address] [address] Chloride [Moles/Vol] 103 mmol/L Normal 98 - 107 [facility] Comment on above: Performed By: #### C MP #### [address] [address] Creatinine [Mass/Vol] 0.76 mg/dL Normal 0.50 - 1.05 [facility] Comment on above: Performed By: #### C MP #### [address] [address] eGFR FEMALE >90 Normal >90 [facility] Comment on above: Result Comment: CALC ULATIONS OF ESTIMATED GFR ARE PERFORMED USING THE 2020 CKD-EPI STUDY REFIT EQUATION WITHOUT THE RACE VARIABLE FOR THE IDMS-TRACEABLE CREATININE METHODS. https://jasn.asnjournals.org/content/early//ASN.63331 [address] Performed By: #### C MP #### [address] [address] Glucose [Mass/Vol] 73 mg/dL Low 74 - 99 [facility] Comment on above: Performed By: #### C MP #### [address] [address] HCO3 (Bld) [Moles/Vol] 28 mmol/L Normal 21 - 32 [facility] Comment on above: Performed By: #### C MP #### [address] [address] Potassium [Moles/Vol] 3.6 mmol/L Normal 3.5 - 5.3 [facility] Comment on above: Performed By: #### C MP #### [address] [address] Protein [Mass/Vol] 6.7 g/dL Normal 6.4 - 8.2 [facility] Comment on above: Performed By: #### C MP #### [address] [address] Sodium [Moles/Vol] 140 mmol/L Normal 136 - 145 [facility] Comment on above: Performed By: #### C MP #### [address] [address] Urea nitrogen [Mass/Vol] 11 mg/dL Normal 6 - 23 [facility] Comment on above: Performed By: #### C MP #### [address] [address] Complete Blood Count + Diffe rentialon 04-09-2022 [...] Count + Differential 0.33 {x10E9/L} See Below [employer] [facility] Work Phone: Comment on above: Reference Range: 0.1 0 - 1.00 Complete Blood Count + Differential 1.66 {x10E9/L} See Below [employer] [facility] [facility] Work Phone: Comment on above: Reference Range: 1.2 0 - 4.80 Complete Blood Count + Differential 2.32 {x10E9/L} See Below [employer] [facility] [facility] Work Phone: Comment on above: Reference Range: 1.2 0 - 7.70 Percent differential counts (%) should be interpreted in the context of the absolute cell counts (cells/L). Complete Blood Count + Differential 1.4 % 0.0 - 6.0 [employer] [facility] [facility] Work Phone: Complete Blood Count + Differential 0.2 % 0.0 - 0.9 [employer] [facility] [facility] Work Phone: Comment on above: Immature Granulocyte Count (IG) includes promyelocytes, myelocytes and metamyelocytes but does not include bands. Percent differential counts (%) should be interpreted in the context of the absolute cell counts (cells/L). LIPID PANEL (CORONARY RISK 2 )on 04-09-2022 Cholesterol [Mass/Vol] 161 mg/dL Normal 0 - 199 [facility] Comment on above: Result Comment: . AGE [...] dosing. Performed By: #### L IPID #### [address] [address] Cholesterol in HDL [Mass/Vol] 93.0 mg/dL Normal [facility] Comment on above: Result Comment: . AGE VERY LOW LOW NORMAL HIGH 0-19 Y < 35 < 40 40-45 ---- 20-24 Y ---- < 40 >45 ---- >24 Y ---- < 40 40-60 >60 . Performed By: #### L IPID #### [address] [address] Cholesterol in LDL [Mass/Vol] 47 mg/dL Normal 0 - 99 [facility] Comment on above: Result Comment: . NEAR BORD AGE DESIRABLE OPTIMAL HIGH HIGH VERY HIGH 0-19 Y 0 - 109 --- 110-129 >/= 130 ---- 20-24 Y 0 - 119 --- 120-159 >/= 160 ---- >24 Y 0 - 99 100-129 130-159 160-189 >/=190 . Performed By: #### L IPID #### [address] [address] Cholesterol in VLDL [Mass/Vol] 21 mg/dL Normal 0 - 40 [facility] Comment on above: Performed By: #### L IPID #### [address] [address] Cholesterol.total/Chol esterol in HDL [Mass ratio] 1.7 {ratio} Normal [facility] Comment on above: Result Comment: REF VALUES DESIRABLE < 3.4 HIGH RISK > 5.0 Performed By: #### L IPID #### [address] [address] Triglyceride [Mass/Vol] 104 mg/dL Normal 0 - 149 [facility] Comment on above: Result Comment: . AGE [...] dosing. Performed By: #### L IPID #### [facility] [address] [place] [address] Laboratory - Chemistry and C hemistry - [...] Phone: Creatinine [Mass/Vol] 0.76 mg/dL See Below [facility] Work Phone: Comment on above: Reference Range: 0.5 0 - 1.05 Glucose [Mass/Vol] 73 mg/dL below low threshold 74 - 99 [facility] Work Phone: Potassium [Moles/Vol] 3.6 mmol/L 3.5 - 5.3 - [facility] [facility] Work Phone: Protein [Mass/Vol] 6.7 g/dL 6.4 - 8.2 -[facility] Work Phone: Sodium [Moles/Vol] 140 mmol/L 136 - 145 -[facility] Work Phone: TSH Qn 1.39 m[IU]/L See Below [facility] Work Phone: Comment on above: Reference Range: 0.4 4 - 3.98 TSH testing is performed using different testing methodology at [facility] than at other [facility]. Direct result comparisons should only be made within the same method. Urea nitrogen [Mass/Vol] 11 mg/dL 6 - 23 -[facility] Work Phone: Lipid Panelon 04-09-2022 Cholesterol [Mass/Vol] 161 mg/dL 0 - 199 [facility] Work Phone: [...] dosing. Cholesterol in HDL [Mass/Vol] 93.0 mg/dL [employer] Work Phone: Comment on above: . AGE VERY LOW LOW N ORMAL HIGH 0-19 Y < 35 < 40 40-45 ---- 20-24 Y ---- < 40 >45 ---- >24 Y ---- < 40 40-60 >60. Cholesterol in LDL [Mass/Vol] 47 mg/dL 0 - 99 [facility] Work Phone: Comment on above: . NEAR BORD AGE ISABEL RABLE OPTIMAL HIGH HIGH VERY HIGH 0-19 Y 0 - 109 --- 110-129 >/= 130 ---- 20-24 Y 0 - 119 --- 120-159 >/= 160 ---- >24 Y 0 - 99 100-129 130-159 160-189 >/=190. Cholesterol.total/Chol esterol in HDL [Mass ratio] 1.7 {ratio} [facility] Work Phone: Comment on above: REF VALUESDESIRABLE < 3.4HIGH RISK > 5.0 Triglyceride [Mass/Vol] 104 mg/dL 0 - 149 [facility] Work Phone: Comment on above: . AGE [...] Phone: No Panel Informationon 04-09 >90 >90 [facility] Work Phone: Comment on above: CALCULATIONS OF TIFFANY MATED GFR ARE PERFORMED USING THE 2020 CKD-EPI STUDY REFIT EQUATION WITHOUT THE RACE VARIABLE FOR THE IDMS-TRACEABLE CREATININE METHODS.https://jasn.asnjournals.org/content//A SN.0566530273 TSH WITH REFLEX TO FREE T4 I F ABNORMALon 04-09-2022 TSH Qn 1.39 m[IU]/L Normal 0.44 - 3.98 [facility] Comment on above: Result Comment: TSH testing is performed using different testing methodology at [facility] than at other [facility]. Direct result comparisons should only be made within the same method. Performed By: #### T HYDS #### [address] [address] VITAMIN B12on 04-09-2022 Cobalamin (Vitamin B12) [Mass/Vol] 474 pg/mL Normal 211 - 911 [facility] Comment on above: Performed By: #### V TB12 #### [address] [address] Vitamin B12, Serumon 022 Cobalamin (Vitamin B12) [Mass/Vol] 474 pg/mL 211 - [address] [facility] Work Phone: Office Visiton 04-07-2022 Follow-up visit Diagnoses/Problems Encounter for preventive health examination (V70.0) (Z00.00) ADD (attention deficit disorder) (314.00) (F98.8) Orders ADD (attention deficit disorder), Health Maintenance Complete Blood Count + Differential; Status:Active; Requested for:54Ndi2092; Comprehensive Metabolic Panel; Status:Active; Requested for:29Ykw9551; Drug Screen, Urine With Reflex To Confirmation; Status:Active; Requested for:45Cpg6054; Lipid Panel; Status:Active; Requested for:82Gub2269; TSH WITH REFLEX TO FREE T4 IF ABNORMAL; Status:Active; Requested for:75Ber4300; Vitamin B12, Serum; Status:Active; Requested for:04Brj2212; SocHx: Never smoker Tobacco Use Screening; Status:Complete; Done: [id number] Provider Impressions Will check some labs/urine, get her old records. F/u in 2 weeks and we will consider starting medication at that time. Chief Complaint RECAPPER, [facility] care History of Present IllnessHere to get [...] least 6-7 years. She was seen in [place] for it in the past. She is [...] History of Breast augmentation 2014 History of [place] tooth extraction x4, 2010 Social History Caffeine use (V49.89) (Z78.9) Never smoker Occasional alcohol use Allergies No Known Drug Allergies Recorded By: Tonya Kearney; 04/07/2022 3:19:18 PM Vitals Vital Signs Recorded: [id number] 03:16PM Heart Rate82 Tvjjyfbq570, LUE, Sitting Dxbqzqhtk88, LUE, Sitting Height5 ft 7.75 in Znmwoy838 lb 8 oz BMI Wbsebefrtf40.76 kg/m2 BSA Calculated1.66 Tobacco Useb) No Falls Screening (Age 18+)a) No falls within the last year O2 Bzsounpbsm42 Physical Exam General: Alert and oriented, No acute distress. Respiratory: Lungs are clear to auscultation, Respirations are non-labored, Breath sounds are equal. Cardiovascular: Normal rate, Regular rhythm, No murmur. Integumentary: Warm, Dry. Neurologic: Alert, Oriented, No focal deficits. Psychiatric: Cooperative, Appropriate mood AND affect. Signatures Electronically signed by : Tamika Sandhu MD; Apr 07 2022 5:07PM EST (Author) Normal ALTILIA Tobacco Screening.on 022 Fall risk assessment a) [...] on WedDec 02, 2021 6:10:33 PM EDT [facility] Comment on above: Order Comment: Injur y/Trauma [...] is unremarkable. IMPRESSION: No acute cardiopulmonary process. [employer] Workstation ID: [id number] Dictated by: REBECCA KIRK on WedDec 02, 2021 4:57:59 PM EDT Transcribed by: KORINA JENNINGS on WedDec 02, 2021 5:09:44 PM EDT Finalized by: REBECCA KIRK on WedDec 02, 2021 7:16:44 PM EDT [facility] Comment on above: Order Comment: Injur y/Trauma or Illness?:Illness/Other How long have you had these symptoms (acute/chronic)?:Acute Reason for exam?:chest pain History of cancer?:unk Surgeries, chemotherapy, or radiation?:breast implants Type of Exam?:Initial Additional signs and symptoms?:chest pain CNTHERAPYon 01-03-2021 CNTHERAPY OT/PT/Speech Visit ( PTWS) ----- MARIBEL CROCKETT ([id number]) 1990 F Date Time Provider Department 01/03/21 7:30 AM TREVOR MIRELES Date Time Provider Department [place] 01/03/2021 7:30 AM [id number] MIRELES Mohit Escalona Reason for Visit: PT [...] Mireles PT 03/04/2021 11:23 AM Addendum 03/04/2021 [facility] PHYSICAL THERAPY [...] of Care: created on 01/03/21 through 03/04/21 [place] in home exercise program. Patient will demonstrate [...] Planned: 3 Planned Treatment Interventions: Therapeutic exercise (11842);Manual therapy (18958);Self-[place] [facility] management (01086);Patient/Family/Ca regiver Education PLAN FOR NEXT VISIT: progress [...] a bulge in vaginal canal. Pt reports [employer] determined it was prolapse. Pt reports wearing [...] the general (more content not included)... Normal [facility] G[facility]ia Prolactin Lvlon 11-03-2017 Protein mass conc 14.3 ng/mL Normal [facility] Comment on above: Result Comment: Male 4.0 - 15.2 Female 4.8 - 23.3Performed At: [facility] [place], [place] [id number] Vincent PhD Ph:[phone] Performed By: #### 1 [id number] ####IBRAHIMA Monsalve Outs [address] [place] [address] Auto Diffon 11-02-2017 Basophils Auto #/vol (Bld) 0.0 E3/mcL Normal 0.0-0.2 [facility] Comment on above: Order Comment: Order Added by Discern Expert. Performed By: #### 2 [id number] ####IBRAHIMA EdzSfzc[address] [place] [address] Basophils/100 WBC Auto (Bld) 0.3 % Normal 0.0-2.0 [facility] Comment on above: Order Comment: Order Added by Discern Expert. Performed By: #### 2 [id number] ####IBRAHIMAKadeem PageQgxBzdc3504 [place] [address] Eos Absolute 0.1 E3/mcL Normal 0.0-0.7 [facility] Comment on above: Order Comment: Order Added by Discern Expert. Performed By: #### 2 752524 ####IBRAHIMAKadeem PageRgqHfgq3786 [place] [address] Eosinophils/100 WBC Auto (Bld) 1.2 % Normal 0.0-11.0 [facility] Comment on above: Order Comment: Order Added by Discern Expert. Performed By: #### 2 [id number] ####IBRAHIMA KlxZyjl2916 [place] [address] Lymphocytes Auto #/vol (Bld) 2.0 E3/mcL Normal 1.2-3.4 [facility] Comment on above: Order Comment: Order Added by Discern Expert. Performed By: #### 2 [id number] ####IBRAHIMAKadeem PageWtlFkah9563 [place] [address] Lymphocytes/100 WBC Auto (Bld) 33.9 % Normal 20.0-55.0 [facility] Comment on above: Order Comment: Order Added by Discern Expert. Performed By: #### 2 769121 ####IBRAHIMA PageGusOqbw[address] [place] [address] Tre[place]len Absolute 0.4 E3/mcL Normal 0.0-0.7 [facility] Comment on above: Order Comment: Order Added by Discern Expert. Performed By: #### 2 [id number] ####IBRAHIMA Hao[address] [place] [address] Monocytes/100 WBC Auto (Bld) 7.1 % Normal 0.0-10.0 [facility] Comment on above: Order Comment: Order Added by Discern Expert. Performed By: #### 2 983146 ####IBRAHIMA Hao[address] [place] [address] Neutro Absolute 3.3 E3/mcL Normal 1.4-6.5 [facility] Comment on above: Order Comment: Order Added by Discern Expert. Performed By: #### 2 051343 ####IBRAHIMA [address]ao[address] [place] [address] Neutro Auto 57.5 % Normal 37.0-75.0 [facility] Comment on above: Order Comment: Order Added by Discern Expert. Performed By: #### 2 [id number] ####IBRAHIMA [address]ao[address] [place] [address] CBC w/ Auto Diffon 8 Erythrocyte distribution width Auto Ratio (RBC) 12.4 % Normal 11.5-14.5 [facility] Comment on above: Performed By: #### 2 031307 ####IBRAHIMA Hao[address] [place] [address] Hematocrit Auto Volume Fraction (Bld) 43.8 % Normal 36.0-48.0 [facility] Comment on above: Performed By: #### 2 836040 ####IBRAHIMA PageBiiImhn6100 [place] [address] Hemoglobin mass conc (Bld) 14.5 g/dL Normal 12.0-16.0 [facility] Comment on above: Performed By: #### 2 661517 ####IBRAHIMA PageEsgDuuk[address] [place] [address] MCH Auto Entitic mass (RBC) 31.0 pg Normal 27.0-31.0 [facility] Comment on above: Performed By: #### 2 011849 ####IBRAHIMA OdtOrrl7264 [place] [address] MCHC Auto mass conc (RBC) 33.2 g/dL Normal 33.0-37.0 [facility] Comment on above: Performed By: #### 2 007041 ####IBRAHIMA PageQibGfkn3869 [place] [address] MCV Auto Entitic volume (RBC) 93.5 fL Normal 78.0-100.0 [facility] Comment on above: Performed By: #### 2 148711 ####IBRAHIMA CncXajr[address]328 [place] [address] Platelet mean volume Auto Entitic volume (Bld) 10.0 fL Normal 7.4-11.0 [facility] Comment on above: Performed By: #### 2 519970 ####IBRAHIMA PageRyvClkz0484 [place] [address] Platelets Auto #/vol (Bld) 158 E3/mcL Normal 130-400 [facility] Comment on above: Performed By: #### 2 873167 ####IBRAHIMA UbvRyxo[address] [place] [address] RBC Auto #/vol (Bld) 4.68 E6/mcL Normal 3.90-5.40 [facility] Comment on above: Performed By: #### 2 127665 ####IBRAHIMA PageXikAknu7129 [place] [address] WBC Auto #/vol (Bld) 5.8 E3/mcL Normal 3.6-11.0 [facility] Comment on above: Performed By: #### 2 846412 ####IBRAHIMA CeyTiuf[address]13 [place] [address] CMPon 11-02-2017 Albumin mass conc 4.1 g/dL Normal 3.2-5.0 [facility] Comment on above: Performed By: #### 2 835204 ####IBRAHIMA SghXcrn6513 [place] [address] Albumin/Globulin mass ratio 1.6 {ratio} Normal 1.1-1.9 [facility] Comment on above: Performed By: #### 2 971398 ####IBRAHIMA PageRmpYuii2656 [place] [address] Alk Phos 46 Int._Unit/L Normal 42-121 [facility] Comment on above: Performed By: #### 2 377762 ####IBRAHIMA Mathew[address] [place] [address] ALT enzyme act/vol 18 Int._Unit/L Normal 10-40 [facility] Comment on above: Performed By: #### 2 884963 ####IBRAHIMA Mathew[address] [place] [address] AST enzyme act/vol 24 Int._Unit/L Normal 10-42 [facility] Comment on above: Performed By: #### 2 800502 ####IBRAHIMA [address] [place] [address] Bili Total 0.7 mg/dL Normal 0.2-1.0 [facility] Comment on above: Performed By: #### 2 529240 ####IBRAHIMA Mathew[address] [place] [address] Creatinine mass conc 0.7 mg/dL Normal 0.6-1.3 [facility] Comment on above: Performed By: #### 2 747520 ####IBRAHIMA Mtahew1025 [place] [address] Globulin Calculated mass conc (S) 2.6 g/dL Normal 2.0-4.0 [facility] Comment on above: Performed By: #### 2 913597 ####IBRAHIMA IfcTsmv2650 [place] [address] Protein mass conc 6.7 g/dL Normal 6.4-8.3 [facility] Comment on above: Performed By: #### 2 857763 ####IBRAHIMA MykEhol5655 [place] [address] Urea nitrogen mass conc 6 mg/dL Low 7-18 [facility] Comment on above: Performed By: #### 2 995063 ####IBRAHIMA DrfSfut1624 [place] [address] Urea nitrogen/Creatinine mass ratio 8.6 ratio Normal 5.4-30.0 [facility] Comment on above: Performed By: #### 2 332008 ####IBRAHIMA MqlAarw8363 [place] [address] Calcium mass conc 9.5 mg/dL Normal 8.4-10.2 [facility] Comment on above: Performed By: #### 2 252973 ####IBRAHIMA PageCbtOqjj5920 [place] [address] Chloride molar conc 105 mmol/L Normal 98-107 [facility] Comment on above: Performed By: #### 2 144429 ####IBRAHIMA PageAfjGhlz3538 [place] [address] CO2 molar conc 27.9 mmol/L Normal 24.0-30.0 [facility] Comment on above: Performed By: #### 2 913772 ####IBRAHIMA GrlUurs6550 [place] [address] Glucose mass conc 89 mg/dL Normal 70-99 [facility] Comment on above: Performed By: #### 2 375312 ####IBRAHIMA PageCqcFaed1905 [place] [address] Potassium molar conc 3.9 mmol/L Normal 3.5-5.1 [facility] Comment on above: Performed By: #### 2 759463 ####IBRAHIMA PageLcpArrs5285 [place] [address] Sodium molar conc 141 mmol/L Normal 136-145 [facility] Comment on above: Performed By: #### 2 717857 ####IBRAHIMA PageOpvKbmv8687 [place] [address] Folateon 11-02-2017 Folate Lvl 17.20 ng/mL Normal >=4.00 [facility] Comment on above: Result Comment: The WHO Technical Consultation on folate and vitamin B12 deficiencieshas determined that deficient folate concentrations are considered to beless than 4ng/ml. Performed By: #### 2 [id number] ####IBRAHIMA Qifxbrkv7338 [place] [address] Lipid Profileon 11-02-2017 Cholesterol in HDL mass conc 103 mg/dL Normal >=41 [facility] Comment on above: Performed By: #### 3 [id number] ####IBRAHIMA PageCxbNnae7287 [place] [address] Cholesterol in LDL mass conc 69 mg/dL Normal 0-130 [facility] Comment on above: Result Comment: <100 [id number] NEAR / ABOVE RSVDNVZ730- 159 BORDERLINE LHZC692-491 HIGH>190 VERY HIGHCALC LDL NOT VALID WHEN TRIGLYCERIDE IS >400 MG/DL Performed By: #### 3 [id number] ####IBRAHIMAKadeem PageIifRvpn9762 [place] [address] Cholesterol in VLDL mass conc 9 mg/dL Normal [facility] Comment on above: Performed By: #### 3 [id number] ####IBRAHIMA YagJnvh4095 [place] [address] Cholesterol mass conc 181 mg/dL Normal 50-200 [facility] Comment on above: Result Comment: TOTA L CHOLEESTEROL: <200 NORMAL 200 - 239 BORDERLINE HIGH >240 HIGH Performed By: #### 3 [id number] ####IBRAHIMAKadeem PageXnvLbea9326 [place] [address] Triglyceride mass conc 45 mg/dL Normal 35-150 [facility] Comment on above: Result Comment: <150 WUDAPJ486-403 BORDERLINE RCLB240-321 HIGH>500 VERY HIGH Performed By: #### 3 [id number] ####IBRAHIMA MorKufq3298 [place] [address] TSHon 11-02-2017 Thyrotropin Qn 2.77 mIU/m Normal 0.30-5.60 [facility] Comment on above: Performed By: #### 2 790911 ####IBRAHIMA Lnpvfxyv2467 [place] [address] Vit B12on 11-02-2017 Cobalamin (Vitamin B12) mass conc 361 pg/mL Normal 180-914 [facility] Comment on above: Performed By: #### 2 123000 ####IBRAHIMA Tuxwghql4941 [place] [address] Vitamin D 25 Hydroxyon 11-02 Vitamin D 25 Hydroxy 37.0 ng/mL Normal 30.0-100.0 [facility] Comment on above: Performed By: #### 5 [id number] ####IBRAHIMA Mrgykned7132 [place] [address] eGFRon 11-02-2017 eGFR AA >60 Normal [facility] Comment on above: Order Comment: Order added by Discern Expert. Performed By: #### 1 [id number] ####IBRAHIMA PqgLiin4690 [place] [address] GFR/1.73 sq M predicted among non-blacks MDRD vol rate/area (S/P/Bld) mL/min/{1.73_m2} [facility] Comment on above: Order Comment: Order added by Discern Expert. Performed By: #### 1 [id number] ####IBRAHIMA AhnIprh2924 [place] [address] Vital Signs Date Time Vital Sign Value Performing Clinician Facility 11-30-2024 16:44-0400 Heart rate 89 /min No Primary Care Physician [facility] 11-30-2024 16:44-0400 SaO2% (BldA) [Mass fraction] 97 % No Primary Care Physician [facility] 11-30-2024 16:43-0400 Body temperature 97.8 [degF] No Primary Care Physician [facility] 11-30-2024 16:43-0400 Diastolic blood pressure 63 mm[Hg] No Primary Care Physician [facility] 11-30-2024 16:43-0400 Respiratory rate 16 /min No Primary Care Physician [facility] 11-30-2024 16:43-0400 Systolic blood pressure 99 mm[Hg] No Primary Care Physician [facility] 11-30-2024 16:14-0400 Body height 172.72 cm No Primary Care Physician [facility] 11-30-2024 16:14-0400 Body mass index (BMI) [Ratio] 21.9 kg/m2 No Primary Care Physician [facility] 11-30-2024 16:14-0400 Body weight 65.4 kg No Primary Care Physician [facility] 11-23-2024 15:34-0400 Body height 172.72 cm No Primary Care Physician [facility] 11-23-2024 15:32-0400 Body mass index (BMI) [Ratio] 22.1 kg/m2 No Primary Care Physician [facility] 11-23-2024 15:32-0400 Body weight 65.99 kg No Primary Care Physician [facility] 11-23-2024 15:32-0400 Diastolic blood pressure 64 mm[Hg] No Primary Care Physician [facility] 11-23-2024 15:32-0400 Systolic blood pressure 99 mm[Hg] No Primary Care Physician [facility] 11-21-2024 08:40-0400 Diastolic blood pressure 64 mm[Hg] No Primary Care Physician [facility] 11-21-2024 08:40-0400 Heart rate 91 /min No Primary Care Physician [facility] 11-21-2024 08:40-0400 Systolic blood pressure 99 mm[Hg] No Primary Care Physician [facility] 11-21-2024 08:39-0400 Body temperature 97.7 [degF] No Primary Care Physician [facility] 11-21-2024 08:39-0400 Respiratory rate 16 /min No Primary Care Physician [facility] 11-21-2024 08:39-0400 SaO2% (BldA) [Mass fraction] 95 % No Primary Care Physician [facility] 11-21-2024 08:32-0400 Body height 172.72 cm No Primary Care Physician [facility] 11-21-2024 08:32-0400 Body mass index (BMI) [Ratio] 21.6 kg/m2 No Primary Care Physician [facility] 11-21-2024 08:32-0400 Body weight 64.5 kg No Primary Care Physician [facility] 11-08-2024 15:43-0400 Body height 171.45 cm No Primary Care Physician [facility] 11-08-2024 15:43-0400 Body mass index (BMI) [Ratio] 22.1 kg/m2 No Primary Care Physician [facility] 11-08-2024 15:43-0400 Body weight 64.92 kg No Primary Care Physician [facility] 11-08-2024 15:43-0400 Diastolic blood pressure 64 mm[Hg] No Primary Care Physician [facility] 11-08-2024 15:43-0400 Systolic blood pressure 118 mm[Hg] No Primary Care Physician [facility] 10-23-2024 15:11-0400 Body height 171.45 cm No Primary Care Physician [facility] 10-23-2024 15:11-0400 Body mass index (BMI) [Ratio] 22.2 kg/m2 No Primary Care Physician [facility] 10-23-2024 15:11-0400 Body weight 65.43 kg No Primary Care Physician [facility] 10-23-2024 15:11-0400 Diastolic blood pressure 60 mm[Hg] No Primary Care Physician [facility] 10-23-2024 15:11-0400 Systolic blood pressure 95 mm[Hg] No Primary Care Physician [facility] 10-17-2024 09:36-0400 Body height 171.45 cm No Primary Care Physician [facility] 10-17-2024 09:35-0400 Body mass index (BMI) [Ratio] 21.8 kg/m2 No Primary Care Physician [facility] 10-17-2024 09:35-0400 Body temperature 98.2 [degF] No Primary Care Physician [facility] 10-17-2024 09:35-0400 Body weight 64.21 kg No Primary Care Physician [facility] 10-17-2024 09:35-0400 Diastolic blood pressure 59 mm[Hg] No Primary Care Physician [facility] 10-17-2024 09:35-0400 Heart rate 82 /min No Primary Care Physician [facility] 10-17-2024 09:35-0400 Respiratory rate 18 /min No Primary Care Physician [facility] 10-17-2024 09:35-0400 SaO2% (BldA) [Mass fraction] 98 % No Primary Care Physician [facility] 10-17-2024 09:35-0400 Systolic blood pressure 90 mm[Hg] No Primary Care Physician [facility] 10-04-2024 10:35-0400 Body height 171.45 cm No Primary Care Physician [facility] 10-04-2024 10:35-0400 Body mass index (BMI) [Ratio] 21.4 kg/m2 No Primary Care Physician [facility] 10-04-2024 10:35-0400 Body weight 63.04 kg No Primary Care Physician [facility] 10-04-2024 10:35-0400 Diastolic blood pressure 70 mm[Hg] No Primary Care Physician [facility] 10-04-2024 10:35-0400 Systolic blood pressure 109 mm[Hg] No Primary Care Physician [facility] 10-02-2024 14:24-0400 Body height 171.45 cm No Primary Care Physician [facility] 10-02-2024 14:24-0400 Body mass index (BMI) [Ratio] 21.4 kg/m2 No Primary Care Physician [facility] 10-02-2024 14:24-0400 Body weight 63.16 kg No Primary Care Physician [facility] 10-02-2024 14:24-0400 Diastolic blood pressure 65 mm[Hg] No Primary Care Physician [facility] 10-02-2024 14:24-0400 Systolic blood pressure 96 mm[Hg] No Primary Care Physician [facility] 09-06-2024 14:13-0400 Body mass index (BMI) [Ratio] 20.7 kg/m2 No Primary Care Physician [facility] 09-06-2024 14:13-0400 Body weight 61 kg No Primary Care Physician [facility] 09-06-2024 14:13-0400 Diastolic blood pressure 70 mm[Hg] No Primary Care Physician [facility] 09-06-2024 14:13-0400 Systolic blood pressure 106 mm[Hg] No Primary Care Physician [facility] 08-09-2024 15:05-0400 Body mass index (BMI) [Ratio] 20 kg/m2 No Primary Care Physician [facility] 08-09-2024 15:05-0400 Body weight 58.96 kg No Primary Care Physician [facility] 08-09-2024 15:05-0400 Diastolic blood pressure 65 mm[Hg] No Primary Care Physician [facility] 08-09-2024 15:05-0400 Systolic blood pressure 103 mm[Hg] No Primary Care Physician [facility] 07-14-2024 13:28-0400 Body mass index (BMI) [Ratio] 19.4 kg/m2 No [facility] [facility] 07-14-2024 13:28-0400 Body weight 57.2 kg No Primary Care Physician [facility] 07-14-2024 13:28-0400 Diastolic blood pressure 75 mm[Hg] No Primary Care Physician [facility] 07-14-2024 13:28-0400 Systolic blood pressure 115 mm[Hg] No Primary Care Physician [facility] 06-09-2024 10:15-0500 Body mass index (BMI) [Ratio] 18.7 kg/m2 No Primary Care Physician [facility] 06-09-2024 10:15-0500 Body weight 55.05 kg No Primary Care Physician [facility] 06-09-2024 10:15-0500 Diastolic blood pressure 80 mm[Hg] No Primary Care Physician [facility] 06-09-2024 10:15-0500 Systolic blood pressure 116 mm[Hg] No Primary Care Physician [facility] 03-28-2024 11:29-0500 Body height 170.2 cm Tamika Sandhu MD Work Phone: [facility] 03-28-2024 11:29-0500 Body mass index (BMI) [Ratio] 18.43 kg/m2 Tamika Sandhu MD Work Phone: [facility] 03-28-2024 11:29-0500 Body weight 53.38 kg Tamika Sandhu MD Work Phone: [facility] 03-28-2024 11:29-0500 Diastolic blood pressure 64 mm[Hg] Tamika Sandhu MD Work Phone: [facility] 03-28-2024 11:29-0500 Heart rate 117 /min Tamika Sandhu MD Work Phone: [facility] 03-28-2024 11:29-0500 SaO2% (BldA) [Mass fraction] 99 % Tamika Sandhu MD Work Phone: [facility] 03-28-2024 11:29-0500 Systolic blood pressure 111 mm[Hg] Tamika Sandhu MD Work Phone: [facility] 12-17-2023 09:04-0400 Body height 170.2 cm Tamika Sandhu MD Work Phone: [facility] 12-17-2023 09:04-0400 Body mass index (BMI) [Ratio] 18.34 kg/m2 Tamika Sandhu MD Work Phone: [facility] 12-17-2023 09:04-0400 Body weight 53.12 kg Tamika Sandhu MD Work Phone: [facility] 12-17-2023 09:04-0400 Diastolic blood pressure 62 mm[Hg] Tamika Sandhu MD Work Phone: [facility] 12-17-2023 09:04-0400 Heart rate 93 /min Tamika Sandhu MD Work Phone: [facility] 12-17-2023 09:04-0400 SaO2% (BldA) [Mass fraction] 99 % Tamika Sandhu MD Work Phone: [facility] 12-17-2023 09:04-0400 Systolic blood pressure 96 mm[Hg] Tamika Sandhu MD Work Phone: [facility] 06-18-2023 10:53-0500 Body height 170.2 cm Tamika Sandhu MD Work Phone: [facility] 06-18-2023 10:53-0500 Body mass index (BMI) [Ratio] 18.2 kg/m2 Tamika Sandhu MD Work Phone: [facility] 06-18-2023 10:53-0500 Body weight 52.71 kg Tamika Sandhu MD Work Phone: [facility] 06-18-2023 10:53-0500 Diastolic blood pressure 70 mm[Hg] Tamika Sandhu MD Work Phone: [facility] 06-18-2023 10:53-0500 Heart rate 120 /min Tamika Sandhu MD Work Phone: [facility] 06-18-2023 10:53-0500 Systolic blood pressure 108 mm[Hg] Tamika Sandhu MD Work Phone: [facility] 05-07-2023 09:12-0500 Body height 170.2 cm Melissa JENSEN Work Phone: [facility] 05-07-2023 09:12-0500 Body mass index (BMI) [Ratio] 18.01 kg/m2 Melissa Riley COMIC BOOK WRITER-TAXICAB COORDINATOR Work Phone: [facility] 05-07-2023 09:12-0500 Body temperature 97.59 [degF] Melissa Riley COMIC BOOK WRITER-TAXICAB COORDINATOR Work Phone: [facility] 05-07-2023 09:12-0500 Body weight 52.16 kg Melissa Riley COMIC BOOK WRITER-TAXICAB COORDINATOR Work Phone: [phone] [place] [address] 05-07-2023 09:12-0500 Diastolic blood pressure 73 mm[Hg] Melissa Riley COMIC BOOK WRITER-TAXICAB COORDINATOR Work Phone: [facility] 05-07-2023 09:12-0500 Heart rate 112 /min Melissa Riley COMIC BOOK WRITER-TAXICAB COORDINATOR Work Phone: [phone] [place] [address] 05-07-2023 09:12-0500 Respiratory rate 16 /min Melissa Riley COMIC BOOK WRITER-TAXICAB COORDINATOR Work Phone: [facility] 05-07-2023 09:12-0500 SaO2% (BldA) [Mass fraction] 96 % Melissa Riley COMIC BOOK WRITER-TAXICAB COORDINATOR Work Phone: [facility] 05-07-2023 09:12-0500 Systolic blood pressure 110 mm[Hg] Melissa Riley COMIC BOOK WRITER-TAXICAB COORDINATOR Work Phone: [facility] 12-14-2022 09:29-0400 Body height 171.5 cm Tamika Sandhu MD Work Phone: [facility] 12-14-2022 09:29-0400 Body mass index (BMI) [Ratio] 17.9 kg/m2 Tamika Sandhu MD Work Phone: [facility] 12-14-2022 09:290400 Body weight 52.62 kg Tamika Sandhu MD Work Phone: [facility] 12-14-2022 09:29-0400 Diastolic blood pressure 76 mm[Hg] Tamika Sandhu MD Work Phone: [facility] 12-14-2022 09:29-0400 Heart rate 92 /min Tamika Sandhu MD Work Phone: [facility] 12-14-2022 09:29-0400 Systolic blood pressure 116 mm[Hg] Tamika Sandhu MD Work Phone: [facility] 09-01-2022 10:05-0400 Body height 171.5 cm Tamika Sandhu MD Work Phone: [facility] 09-01-2022 10:05-0400 Body mass index (BMI) [Ratio] 17.36 kg/m2 Tamika Sandhu MD Work Phone: [facility] 09-01-2022 10:05-0400 Body weight 51.03 kg Tamika Sandhu MD Work Phone: [facility] 09-01-2022 10:05-0400 Diastolic blood pressure 70 mm[Hg] Tamika Sandhu MD Work Phone: [facility] 09-01-2022 10:05-0400 Heart rate 100 /min Tamika Sandhu MD Work Phone: [facility] 09-01-2022 10:05-0400 SaO2% (BldA) [Mass fraction] 99 % Tamika Sandhu MD Work Phone: [facility] 09-01-2022 10:05-0400 Systolic blood pressure 112 mm[Hg] Tamika Sandhu MD Work Phone: [facility] 04-21-2022 10:04-0500 Body height 172.09 cm Tamika Sandhu Work Phone: [facility] Work Phone: 04-21-2022 10:04-0500 Body mass index (BMI) [Ratio] 19.08 kg/m2 Tamika Sandhu Work Phone: [facility] Work Phone: 04-21-2022 10:04-0500 Body surface area Derived from formula 1.67 m2 Tamika Sandhu Work Phone: [facility] Work Phone: 04-21-2022 10:04-0500 Body weight 56.5 kg Tamika Sandhu Work Phone: [facility] Work Phone: 04-21-2022 10:04-0500 Diastolic blood pressure 68 mm[Hg] Tamika Sandhu Work Phone: [facility] Work Phone: 04-21-2022 10:04-0500 Heart rate 92 /min Tamika Sandhu Work Phone: [facility] Work Phone: 04-21-2022 10:04-0500 SaO2% (BldA) [Mass fraction] 98 % Tamika Sandhu Work Phone: [facility] Work Phone: 04-21-2022 10:04-0500 Systolic blood pressure 100 mm[Hg] Tamika Sandhu Work Phone: [facility] Work Phone: 04-07-2022 15:16-0500 Body height 172.09 cm Tamika Sandhu Work Phone: [facility] Work Phone: 04-07-2022 15:16-0500 Body mass index (BMI) [Ratio] 18.76 kg/m2 Tamika Sandhu Work Phone: [facility] Work Phone: 04-07-2022 15:16-0500 Body surface area Derived from formula 1.66 m2 Tamika Sandhu Work Phone: [facility] Work Phone: 04-07-2022 15:16-0500 Body weight 55.57 kg Tamika Sandhu Work Phone: [facility] Work Phone: 04-07-2022 15:16-0500 Diastolic blood pressure 72 mm[Hg] Tamika Sandhu Work Phone: [facility] Work Phone: 04-07-2022 15:16-0500 Heart rate 82 /min Tamika Sandhu Work Phone: [facility] Work Phone: 04-07-2022 15:16-0500 SaO2% (BldA) [Mass fraction] 97 % Tamika Sandhu Work Phone: [facility] Work Phone: 04-07-2022 15:16-0500 Systolic blood pressure 100 mm[Hg] Tamika Sandhu Work Phone: [facility] Work Phone: Encounters Encounter Date Encounter Type Care Provider Facility Start: 11-30-2024 ambulatory Citlalli Hunt lity:[facility] Start: 11-30-2024 End: 11-30-2024 ambulatory No Primary Care Physician -[facility] Start: 11-30-2024 End: 11-30-[address] Citlalli Cabrera MD -[facility] Work Phone: Start: 11-23-2024 End: 11-23-2024 ambulatory No Primary Care Physician -Ultrasound [facility] Start: 11-23-2024 End: 11-23-[address] Citlalli Cabrera MD -[facility]trasound [facility] Work Phone: Start: 11-23-2024 End: 11-23-[address] Citlalli Cabrera MD -[facility] Work Phone: Start: 11-23-2024 End: 11-23-2024 ambulatory No Primary Care Physician -[facility] Start: 11-23-2024 End: 11-23-2024 ambulatory Citlalli Cabrera Facility:[facility] Start: 11-21-2024 ambulatory No Primary Car e Physician Facility:[facility] Start: 11-21-2024 Non-patient / Non-visit Dr. Khoi Cabrera MD -[facility] Start: 11-21-2024 End: 11-21-2024 ambulatory No Primary Care Physician -[facility] Start: 11-21-2024 End: 11-21-[address] [facility] Work Phone: Start: 11-08-2024 End: 11-08-2024 Patient encounter procedure Kamla CARTAGENA -[facility] Work Phone: Start: 11-08-2024 End: 11-08-2024 ambulatory No Primary Care Physician -[facility] Start: 10-23-2024 End: 10-23-[address] Citlalli Cabrera MD -[facility] Work Phone: Start: 10-23-2024 End: 10-23-2024 ambulatory No Primary Care Physician [facility] Work Phone: Start: 10-17-[address] Samm Colbert MD -[facility] Start: 10-17-2024 ambulatory No Primary Car e Physician Facility:[facility] Start: 10-17-2024 End: 10-17-[address] Samm Colbert MD -[facility] Work Phone: Start: 10-17-2024 End: 10-17-2024 ambulatory No Primary Care Physician [facility] Work Phone: Start: 10-04-2024 End: 10-04-2024 ambulatory No Primary Care Physician [facility] Work Phone: Start: 10-04-2024 End: 10-04-2024 Patient encounter procedure Kamla L[place] RECAPPER-C -[facility] Work Phone: Start: 10-04-2024 End: 10-04-2024 Patient encounter procedure Kamla Marce RECAPPER-C -[facility] Work Phone: Start: 10-04-2024 End: 10-04-2024 ambulatory No Primary Care Physician [facility] Work Phone: Start: 10-04-2024 End: 10-04-2024 ambulatory Kamla Zheng Facility:[facility] Start: 10-02-2024 End: 10-02-2024 ambulatory No Primary Care Physician [facility] Work Phone: Start: 10-02-2024 End: 10-02-2024 Patient encounter procedure Kecia Faye CNM -[facility] Work Phone: Start: 10-02-2024 End: 10-02-2024 ambulatory Citlalli Cabrera Facility:[facility] Start: 09-06-2024 End: 09-06-2024 Patient encounter procedure Kamla Marce RECAPPER-C -[facility] Work Phone: Start: 09-06-2024 End: 09-06-2024 ambulatory No Primary Care Physician Facility:[facility] Start: 08-29-2024 End: 08-29-2024 ambulatory NO PRIMARY CARE [facility] Start: 08-15-2024 End: 08-15-2024 ambulatory NO PRIMARY CARE [facility] Start: 08-09-2024 End: 08-09-[address] Citlalli Cabrera MD -[facility] Work Phone: Start: 08-09-2024 End: 08-09-2024 ambulatory No Primary Care Physician Facility:[facility] Start: 07-14-2024 End: 07-14-[address] Rosalba Yang DO -[facility] Work Phone: Start: 07-14-2024 End: 07-14-2024 ambulatory Rosalba Yang Facility:[facility] Start: 06-13-2024 End: 06-13-[address] Citlalli Cabrera MD -[facility] Start: 06-13-2024 End: 06-13-2024 ambulatory Citlalli Cabrera Facility:[facility] Start: 06-09-2024 End: 06-09-[address] Citlalli Cabrera MD -[facility] Work Phone: Start: 06-09-2024 End: 06-09-2024 ambulatory No Primary Care Physician Facility:[facility] Start: 06-09-2024 End: 06-09-2024 ambulatory Citlalli Cabrera Facility:[facility] Start: 03-28-2024 End: 03-28-2024 Office outpatient visit 15 minutes Tamika Sandhu MD Work Phone: [facility] Comment on above: Acute sinusitis, rec urrence not specified, unspecified location (Primary Dx) Start: 03-28-2024 End: 03-28-[address] [facility] Start: 12-17-2023 End: 12-17-2023 Office outpatient visit 15 minutes Tamika Sandhu MD Work Phone: [facility] Comment on above: Attention deficit di sorder, unspecified hyperactivity presence Start: 12-17-2023 End: 12-17-[address] [facility] Start: 06-18-2023 End: 06-18-[address] [facility] Start: 06-18-2023 End: 06-18-2023 Office outpatient visit 25 minutes Tamika Sandhu MD Work Phone: [facility] Comment on above: Acute sinusitis, rec urrence not specified, unspecified location (Primary Dx); Attention deficit disorder, unspecified hyperactivity presence Start: 05-07-2023 End: 05-07-2023 ambulatory TAMIKA SANDHU [facility] Start: 05-07-2023 End: 05-07-2023 Patient encounter procedure Melissa Lin COMIC BOOK WRITER-TAXICAB COORDINATOR Work Phone: [facility] Comment on above: Influenza (Primary D x) Start: 12-14-2022 End: 12-14-2022 Office outpatient visit 15 minutes Tamika Sandhu MD Work Phone: [facility] Comment on above: Attention deficit di sorder, unspecified hyperactivity presence (Primary Dx) Start: 09-01-2022 End: 09-01-2022 Office outpatient visit 15 minutes Tamika Sandhu MD Work Phone: [facility] Comment on above: Attention deficit di sorder, unspecified hyperactivity presence Start: 06-23-2022 AUDIT Tamika plunkett Work Phone: [facility] Work Phone: Start: 05-19-2022 ambulatory Tamika Sandhu Facility:[id number] Start: 04-21-2022 EPV, Provider: Tamika Sandhu, Status: Pen, Time: 10:00 AM Tamika Sandhu Work Phone: [facility] Work Phone: Start: 04-21-2022 Office outpatient vi sit 15 minutes Tamika Sandhu Work Phone: [facility] Work Phone: Start: 04-21-2022 ambulatory Tamika Sandhu Facility:[id number] Start: 04-20-2022 Chart Update Tamika plunkett Work Phone: [facility] Work Phone: Start: 04-07-2022 ambulatory Tamika Julianna Kevyn Facility:[id number] Start: 12-02-2021 End: 12-02-2021 Emergency department patient visit GARDENIA CANELA MCDERMOTT [facility] Start: 11-02-2017 End: 11-03-2017 Patient encounter PA-Eve Marques Facility:[facility] Start: 01-18-2017 End: 01-19-2017 Patient encounter Nodr No Doctor Assigned Facility:[facility] Procedures Date Procedure Procedure Detail Performing [...] of 2) Zoster Vaccines (1 of 2) [facility] Start: 04-09-2027 Lipid panel Lipid Panel [facility] Start: 11-30-2024 Nonstress test [facility] Start: 11-30-2024 Obstetric monitoring [facility] Start: 11-30-2024 [facility] Start: 11-30-2024 Vital signs measurements [facility] Start: 11-30-2024 Patient discharge [facility] Start: 11-21-2024 Bacteria identified in Urine by Culture Urine Culture [facility] Start: 11-21-2024 End: 11-21-2024 [facility] Start: 11-21-2024 Nonstress test [facility] Start: 11-21-2024 Obstetric monitoring [facility] Start: 11-21-2024 Vital signs measurements [facility] Start: 11-21-2024 Catheterization of vein [facility] Start: 11-21-2024 Patient discharge [facility] Start: 10-17-2024 CBC W Auto Differential panel - Blood [facility] Start: 10-17-2024 Cobalamin (Vitamin B12) [Mass/volume] in Serum or Plasma [facility] Start: 10-17-2024 Comprehensive metabolic 2000 panel - Serum or Plasma [facility] Start: 10-17-2024 Iron and Iron binding capacity panel - Serum or Plasma [facility] Start: 10-17-2024 [facility] Start: 10-17-2024 Ferritin [Mass/volume] in Serum or Plasma [facility] Start: 10-17-2024 Lactate dehydrogenase measurement [facility] Start: 10-04-2024 Bacteria identified in Urine by Culture Urine Culture [facility] Start: 10-04-2024 [facility] Start: 06-23-2024 End: 06-23-2024 [facility] Start: 01-02-2024 COVID-19 Vaccine ( season) COVID-19 Vaccine ( season) [facility] Start: 01-02-2024 Influenza vaccination Influenza Vaccine (#1) [facility] Start: 12-17-2023 End: 12-17-2023 Patient encounter procedure 12/17/2023 9:00 AM EDT Office Visit [address] [phone] Tamika Sandhu MD [address] [place] [address] [place] [address] [facility] Start: 06-14-2023 End: 06-14-2023 Patient encounter procedure 06/14/2023 9:20 AM EST Office Visit [address] [id number] Tamika Sandhu MD [address] [facility] [place] [address] [facility] Start: 01-01-2023 COVID-19 Vaccine ( season) COVID-19 Vaccine () [facility] Start: 01-01-2023 Influenza vaccination [facility] Start: 12-03-2022 End: 12-03-2022 Patient encounter procedure 12/03/2022 9:20 AM EDT Office Visit [address] [phone] Tamika Sandhu MD [address] [facility] [place] [address] [facility] Start: 09-01-2022 EPV, Provider: Tamika Sandhu, Status: Pen, Time: 10:00 AM EPV, Provider: Tamika Sandhu, Status: Pen, Time: 10:[address] [facility] Work Phone: Start: 05-19-2022 EPV, Provider: Tamika Sandhu, Status: Pen, Time: 10:00 AM EPV, Provider: Tamika Sandhu, Status: Pen, Time: 10:[address] [facility] Work Phone: Start: 01-11-2012 Screening for malignant neoplasm of cervix [facility] Start: 2009 Hepatitis C screening Hepatitis C Screening [facility] Start: 01-11-2004 Varicella vaccination Varicella Vaccines (1 of 2 - 13+ 2-dose series) [facility] Start: 11-14-2003 Varicella vaccination Varicella Vaccines (1 of 2 - 2-dose childhood series) [facility] Start: 10-18-2003 DTaP/Tdap/Td Vaccines (6 - Tdap) DTaP/Tdap/Td Vaccines (6 - Tdap) [facility] Start: 1991 COVID-19 Vaccine (#1) COVID-19 Vaccine (#1) [facility] Start: 1991 HIV screening HIV Screening [facility] Start: 1991 Yearly Adult Physical Yearly Adult Physical [facility] Alanine aminotransfe rase [Enzymatic activity/volume] in Serum or Plasma [facility] Albumin [Mass/volume ] in Serum or Plasma [facility] Alkaline phosphatase [Enzymatic activity/volume] in Serum or Plasma [facility] Anion gap in Serum or Plasma [facility] Bilirubin, total measurement [facility] BUN/Creatinine ratio [facility] Calcium [Mass/volume ] in Serum or Plasma [facility] Carbon dioxide, tota l [Moles/volume] in Central venous blood [facility] Creatinine [Mass/vol ume] in Serum or Plasma [facility] Erythrocyte mean cor puscular volume determination [facility] Erythrocyte mean cor puscular volume determination [facility] Folate [Moles/volume ] in Serum or Plasma [facility] Glucose [Mass/volume ] in Serum or Plasma [facility] Hematocrit [Volume F raction] of Blood [facility] Hematocrit [Volume F raction] of Blood [facility] Hemoglobin [Mass/vol ume] in Blood [facility] Hemoglobin [Mass/vol ume] in Blood [facility] Iron [Mass/mass] in Unspecified specimen [facility] Iron saturation [Mas s Fraction] in Serum or Plasma [facility] Leukocytes [#/volume ] in Blood [facility] Leukocytes [#/volume ] in Blood [facility] Mean corpuscular hem oglobin concentration determination [facility] Mean corpuscular hem oglobin concentration determination [facility] Mean corpuscular hem oglobin determination [facility] Mean corpuscular hem oglobin determination [facility] Measurement of gluco se 2 hours after glucose challenge for glucose tolerance test [facility] Measurement of renal function [facility] Neutrophil count [facility] Neutrophil count [facility] Neutrophil percent differential count [facility] Neutrophil percent differential count [facility] Patient Education Kick Counts ED False Labor OB Triage: Return to Hospital or Notify Physician if you Experience: [facility] Work Phone: Platelets [#/volume] in Blood [facility] Platelets [#/volume] in Blood [facility] Potassium measurement [facility] Red blood cell count [facility] Red blood cell count [facility] Red cell distributio n width determination [facility] Red cell distributio n width determination [facility] Serologic test for syphilis [facility] Serum chloride measurement [facility] Sodium measurement [facility] Total iron binding c apacity measurement [facility] Total protein measurement [facility] Ultrasound scan for growth [facility] Urea nitrogen [Mass/ volume] in Serum or Plasma [facility] Urine culture [facility] Urine culture [facility] Immunizations Immunization Date Immunization Notes Care Provider Fa cilidior 08-17-2019 tetanus toxoid, redu luis diphtheria toxoid, and acellular pertussis vaccine, adsorbed No Primary Care Physician [facility] 10-08-2006 meningococcal polysaccharide (groups A, C, Y and W-135) diphtheria toxoid conjugate vaccine (MCV4P) [facility] Phone: [facility] Work Phone: 10-17-2003 measles, mumps and rubella virus vaccine [facility] Work Phone: [facility] Work Phone: 10-17-2003 TD(adult) unspecifie d formulation [facility] Work Phone: [facility] Work Phone: 08-10-1996 diphtheria, tetanus toxoids and pertussis vaccine [facility] Work Phone: [facility] Work Phone: 08-10-1996 trivalent poliovirus vaccine, live, oral [facility] Work Phone: [facility] Work Phone: 07-27-1995 hepatitis B vaccine, pediatric or pediatric/adolescent dosage [facility] Work Phone: [facility] Work Phone: 02-23-1995 hepatitis B vaccine, pediatric or pediatric/adolescent dosage [facility] Work Phone: [facility] Work Phone: 01-21-1995 hepatitis B vaccine, pediatric or pediatric/adolescent dosage [facility] Work Phone: [facility] Work Phone: 12-24-1992 diphtheria, tetanus toxoids and pertussis vaccine [facility] Work Phone: [facility] Work Phone: 11-11-1992 haemophilus influenz ae type b vaccine, PRP-T conjugate [facility] Work Phone: [facility] Work Phone: 11-11-1992 measles, mumps and rubella virus vaccine [facility] Work Phone: [facility] Work Phone: 11-11-1992 trivalent poliovirus vaccine, live, oral [facility] Work Phone: [facility] Work Phone: 1991 diphtheria, tetanus toxoids and pertussis vaccine [facility] Work Phone: [facility] Work Phone: 1991 haemophilus influenz ae type b vaccine, PRP-T conjugate [facility] Work Phone: [facility] Work Phone: 1991 diphtheria, tetanus toxoids and pertussis vaccine [facility] Work Phone: [facility] Work Phone: 1991 haemophilus influenz ae type b vaccine, PRP-T conjugate [facility] Work Phone: [facility] Work Phone: 1991 trivalent poliovirus vaccine, live, oral [facility] Work Phone: [facility] Work Phone: 1991 diphtheria, tetanus toxoids and pertussis vaccine [facility] Work Phone: [facility] Work Phone: 1991 haemophilus influenz ae type b vaccine, PRP-T conjugate Tamika Quan [facility] Work Phone: [facility] Work Phone: 1991 trivalent poliovirus vaccine, live, oral Tamika Sandhu Work Phone: [facility] Work Phone: Payers Date Payer Category Payer Self-pay 2022 Managed Care (Private) [employer] [id number] 2022 Private Health Insurance [facility] [employer] [id number] 2022-Present [phone] [id number] [place] [id number] 2022 Private Health Insurance [id number] 2021 Unknown [id number] 2017 Unknown 1991 Unknown [id number] 2.16.840.1.471912.3.579. 2.902 1991 Unknown [id number] 2.16.840.1.744408.3.579. 2.356 1991 Unknown [id number] 2.16.840.1.387226.3.579. 2.356 1991 Unknown [id number] 2.16.840.1.450850.3.579. 2.356 1991 Unknown [id number] 2.16.840.1.039709.3.579. 2.1243 1991 Unknown [id number] 2.16.840.1.098113.3.579. 2.1244 1991 Unknown [id number] 2.16.840.1.847483.3.579. 2.1244 1991 Unknown [id number] 2.840.1.312390.3.579. 2.1244 1991 Unknown [id number] 2..840.1.456536.3.579. 2.479 1991 Unknown [id number] 2.840.1.005293.3.579. 2.479 Unknown [id number] 2.840.1.445957.3.579. 2.462 Unknown [id number] 2.840.1.322090.3.579. 2.462 Unknown [id number] 2.840.1.156459.3.579. 2.462 Unknown [id number] 2.840.1.369377.3.579. 2.462 Unknown [id number] 2.840.1.589572.3.579. 2.462 Unknown [id number] 2.840.1.755490.3.579. 2.462 Unknown [id number] 2.840.1.313936.3.579. 2.462 Unknown [id number] 2.840.1.082630.3.579. 2.462 Unknown [id number] 2.16840.1.511499.3.579. 2.462 Unknown [id number] 2.840.1.486277.3.579. 2.462 Unknown [id number] 2.840.1.651938.3.579. 2.462 Unknown [id number] 2.16.840.1.316913.3.579. 2.462 Unknown [id number] 2.16.840.1.132615.3.579. 2.462 Unknown [id number] 2.16.840.1.003735.3.579. 2.462 Unknown [id number] 2.16.840.1.199938.3.579. 2.462 Unknown [id number] 2.16.840.1.843938.3.579. 2.462 Unknown [id number] 2.16.840.1.762523.3.579. 2.462 Unknown [id number] 2.16.840.1.004517.3.579. 2.462 Unknown [id number] 2.16.840.1.461187.3.579. 2.462 Unknown [id number] 2.16.840.1.671848.3.579. 2.462 Social History Date Type Detail Facility Start: 09-01-2022 End: 06-18-2023 Occasional alcohol use Occasional alcohol use [facility] Work Phone: Start: 09-01-2022 End: 10-04-2024 Tobacco smoking status NHIS Never smoked tobacco [facility] Work Phone: Start: 09-01-2022 Tobacco use and exposure Smokeless tobacco non-user [facility] Work Phone: Start: 09-01-2022 End: 12-17-2023 Alcohol intake Current drinker of alcohol (finding) [facility] Work Phone: Start: 1990 Sex Assigned At Not on file [facility] Work Phone: Start: 09-01-2022 End: 06-18-2023 Gender identity Not on file [facility] Work Phone: Start: 08-22-2022 End: 03-28-2024 Exposure to SARS-CoV-2 (event) Not sure [facility] Start: 08-24-2019 Alcohol Alcohol [facility] Start: 1990 Sex Assigned At Female [facility] Clinical Notes 01-03-2021 to 11-27-2024 Note Date & Type Note Facility 11-27-2024 Radiology Diagnostic study note [facility] Services [address] [place], [place] [address] OB Limited With Biometrics MR#: [id number] Acct: [id number] Name: MARIBEL CROCKETT Rep #: [id number] : 1990 F 34 From: Rupesh Kaye MD PCP: Care Physician,No Primary Status: REG CLI Study:OB Limited With Biometrics Date of Exam : 11/23/24 Exam# [id number] Ordering Dr: Citlalli Linares MD PROCEDURE: OB [...] of 34 weeks and 6days. Reading Location: [id number] CC: Dr. 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 [address], [address] [place] [address] OFFICE VISIT Date of Service: 11/23/24 MR#: [id number] Acct: [id number] Name: MARIBEL CROCKETT Rep #: [id number] : 1990 Provider: Dr. 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 Date Name GA/Weeks Outcome Route Bth Weight Infant Gen Labor Lgth Anesthesia Del Locatn Provider FOB 08/24/19 [facility] live - vacuum 6lb 8 oz Female [address] [facility] Ibis Rush 02/22/21 [place] 38 live - full term 6# 8oz Female epi dural [facility] Nehemias Rush Delivery Date: 08/24/19 Last Updated [...] 150 32 1.5 -?-?-?-?-?-?-?-?-?-?-?-?- SM- seen in [facility] for contracitons and bleeding, had more [...] Comment: PRR , MARGO 01/04/25,girl PC Eileen, [place] Victor Manuel (7) Hx of delivery by vacuum extraction, currently : Status: Acute Comment: first (8) : Status: Acute Qualifiers: Weeks of gestation: 34 weeks Qualified Code(s): Z3A.34 - 34 weeks gestation of Comment: NIPT low risk, f/u anatomy complete & nl. (9) History of chorioamnionitis: Status: Acute Comment: first Orders: Orders POC Urinalysis 2 Dip (Clinic) Today 11/23/24 8675 <Electronically signed by Citlalli mi MD> Date _ Citlalli Cabrera MD [facility] Signature: Date (if applicable) CC: ~ [facility] Work Phone: 1(193) 151-436906-23-2025 Progress [facility] [address] [place] [address], [address] [place] [id number] OFFICE VISIT Date of Service: 10/23/24 MR#: [id number] Acct: [id number] Name: MARIBEL CROCKETT Rep #: [id number] : 1990 Provider: Dr. Jesus Cabrera MD Age/Sex: 34/F Location: [facility] Status: Signed Intake Vital Signs 08/09/24 15:05 10/17/24 09:36 10/23/24 15:11 Height 5 ft 7.5 in 5 ft 7.5 in Weight: 144 lb 4 oz BMI 22.2 BP 95/60 Intake Visit Reasons: 30wk ob, pessary fitting. 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 Ibis Rush 02/22/21 [place] 38 live - full term 6# 8oz Female epi dural [facility] Nehemias Rush Delivery Date: 08/24/19 Last Updated [...] Cosigner Signature: Date (if applicable) CC: ~ [facility]06-23-2025 Progress note Author Citlalli Cabrera [facility] Note Date/Time October 23, 2024 3:33 pm [facility] [address] [place] [address], [address] [place] [address] OFFICE VISIT Date of Service: 10/23/24 MR#: [id number] Acct: [id number] Name: MARIBEL CROCKETT Rep #: [id number] : 1990 Provider: Dr. Jesus Cabrera MD Age/Sex: 34/F Location: [facility] Status: Signed Intake Vital Signs 08/09/24 15:05 10/17/24 09:36 10/23/24 15:11 Height 5 ft 7.5 in 5 ft 7.5 in Weight: 144 lb 4 oz BMI 22.2 BP 95/60 Intake Visit Reasons: 30wk ob, pessary fitting. 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 Date Name GA/Weeks Outcome Route Bth Weight Gen Labor Lgth A nesthesia Del Locatn Provider FOB 08/24/19 [facility] 36 live - vacuum 6lb 8 oz Female [address] [facility] Ibis Rush 02/22/21 [place] 38 live - full term 6# 8oz Female epi dural [facility] Nehemias Rush Delivery Date: 08/24/19 Last Updated [...] , MARGO 01/04/25,girl PC E[place]en, [place] Victor Maneul (7) Hx of delivery by vacuum extraction, [...] mi MD> Date _ Citlalli Cabrera MD [facility] Signature: Date (if applicable) CC: ~ [facility] Work Phone: 1(715) 258-623706-02-2025 Progress [facility] [address] [place] [address], [address] [place] [address] OFFICE VISIT Date of Service: 10/02/24 MR#: [id number] Acct: [id number] Name: MARIBEL CROCKETT Rep #: : 1990 Provider: LEYLA Faye Age/Sex: 34/F [place] [facility] Status: Signed Intake Vital Signs 08/09/24 15:05 09/06/24 14:13 10/02/24 14:24 Height 5 ft 7.5 in 5 ft 7.5 in 5 ft 7.5 in Weight: 139 lb 4 oz BMI 21.4 BP 96/65 Intake Visit Reasons: 27 WK OB/GLUCOSE Chief Complaint: 27wk OB Appeals Officer Required: No Is patient in pain?: No [...] 2 current occupational status: unemployed current occupation: [employer] pets and animals: Yes pets and [...] physical activity do you participate in: none ramesh/mosque: Mosque seatbelt use: always do you feel safe at home: Yes 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 Date Name GA/Weeks Outcome Route Bth Weight Gen Labor Lgth Anesthesia Del Locatn Provider FOB 08/24/19 [place] 36 live - vacuum 6lb 8 oz Female [address] [facility] Ibis Rush 02/22/21 [place] 38 live - full term 6# 8oz Female epi dural [facility] Nehemias Rush Delivery Date: 08/24/19 Last Updated [...] Cosigner Signature: Date (if applicable) CC: ~ [facility]06-02-2025 Progress note Author Kceia Faye [facility] Note Date/Time October 02, 2024 2:45p [facility] [address], [address] [place] [address] OFFICE VISIT Date of Service: 10/02/24 MR#: [id number] Acct: [id number] Name: MARIBEL CROCKETT Rep #: [id number] : 1990 Provider: LEYLA Faye Age/Sex: 34/F Location: [facility] Status: Signed Intake Vital Signs 08/09/24 15:05 09/06/24 14:13 10/02/24 14:24 Height 5 ft 7.5 in 5 ft 7.5 in 5 ft 7.5 in Weight: 139 lb 4 oz BMI 21.4 BP 96/65 Intake Visit Reasons: 27 WK OB/GLUCOSE Chief Complaint: 27wk OB Appeals Officer Required: No Is patient in pain?: No [...] 2 current occupational status: unemployed current occupation: [employer] pets and animals: Yes pets and [...] physical activity do you participate in: none ramesh/mosque: Mosque seatbelt use: always do you feel safe at home: Yes 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 Ibis Rush 02/22/21 [place] 38 live - full term 6# 8oz Female epi dural [facility] Nehemias Rush Delivery Date: 08/24/19 Last Updated [...] fallen in the past year?: No 10/02/24 [id number] <Electronically signed by Kecia dillard CNM> Date _ Kecia Faye CNM Cosigner Signature: Date (if applicable) CC: ~ [facility] Work Phone: 1(222) 970-178104-09-2025 Evaluation note* Diagnosis Onset Date Resolution Status [...] of delivery by vacuum extraction, currently acute [facility] 2024 10:31am Hx of delivery, curr ently acute October 04, 2024 1 0:31am acute October 04, 2024 10:31am Supervision of high-risk acute October 04, 2024 1 0:31am UTI in acute October 10:31am Thrombocytopenia affecting chronic October 04, 2024 1 0:31am Nasal septum ulceration acute [facility] 2024 9:06am Thrombocytopenia affecting chronic October 17, 2024 9:06am Cystocele with incomplete uterovaginal prolapse acute October 23, 2024 2:49pm History of chorioamnionitis acute October 23, 2024 2:49pm Hx of delivery by vacuum extraction, currently acute [facility] 2024 2:49pm Hx of delivery, curr ently acute October 23, 2024 2:49pm Nasal septum ulceration acute [facility] 2024 2:49pm acute October 23 2:49pm Supervision of high-risk acute October 23, 2024 2:49pm UTI in acute October 2:49pm Thrombocytopenia affecting chronic October 23, 2024 2:49pm Cystocele with incomplete uterovaginal prolapse acute November 08, 2024 3:37pm History of chorioamnionitis acute November 08, 2024 3:37pm Hx of delivery by vacuum extraction, currently acute [facility] 2024 3:37pm Hx of delivery, curr ently acute November 08, 2024 3 :37pm acute November 08, 2024 3:37pm Supervision of high-risk acute November 08, 2024 3 :37pm UTI in acute October 3:37pm Thrombocytopenia affecting chronic November 08, 2024 3 :37pm [facility] Work Phone: 1(308) 671-753104-09-2025 Evaluation note* Diagnosis Onset Date Resolution Status [...] delivery by vacuum extraction, currently acute [facility] 2024 2:10pm Hx of delivery, curr ently acute October 02, 2024 2 :10pm acute October 02, 2024 2:10pm Supervision of high-risk acute October 02, 2024 2 :10pm Cystocele with incomplete uterovaginal prolapse acute October 04, 2024 10:31am History of chorioamnionitis acute October 04, 2024 10:31am Hx of delivery by vacuum extraction, currently acute [facility] 2024 10:31am Hx of delivery, curr [...] 2024 2:49pm Nasal septum ulceration acute [facility] 2024 2:49pm acute October 23 2:49pm [...] 23, 2024 3:15pm Nasal septum ulceration acute [facility] 2024 3:15pm acute November 23 3:15pm Supervision of high-risk acute November 23, 2024 3:15pm UTI in acute October 3:15pm Thrombocytopenia affecting chronic November 23, 2024 3:15pm [facility] Work Phone: 1(174) 151-953204-09-2025 Evaluation note* Diagnosis Onset Date Resolution Status [...] delivery by vacuum extraction, currently acute [facility] 2024 10:31am Hx of delivery, curr ently acute October 04, 2024 1 0:31am acute October 04, 2024 10:31am Supervision of high-risk acute October 04, 2024 1 0:31am UTI in acute October 10:31am Thrombocytopenia affecting chronic October 04, 2024 1 0:31am Nasal septum ulceration acute [facility] 2024 9:06am Thrombocytopenia affecting chronic October 17, 2024 9:06am Cystocele with incomplete uterovaginal prolapse acute October 23, 2024 2:49pm History of chorioamnionitis acute October 23, 2024 2:49pm Hx of delivery by vacuum extraction, currently acute [facility] 2024 2:49pm Hx of delivery, curr ently acute October 23, 2024 2:49pm Nasal septum ulceration acute [facility] 2024 2:49pm acute October 23 2:49pm [...] of delivery by vacuum extraction, currently acute [facility] 2024 3:15pm Hx of delivery, curr ently [...] Thrombocytopenia affecting chronic November 30, 2024 3:45pm [facility] Work Phone: 1(620) 271-380103-14-2025 Evaluation note* Diagnosis Onset Date Resolution Status [...] delivery by vacuum extraction, currently acute [facility] 2024 2:10pm Hx of delivery, curr ently acute October 02, 2024 2 :10pm acute October 02, 2024 2:10pm Supervision of high-risk acute October 02, 2024 2 :10pm Cystocele with incomplete uterovaginal prolapse acute October 04, 2024 10:31am History of chorioamnionitis acute October 04, 2024 10:31am Hx of delivery by vacuum extraction, currently acute [facility] 2024 10:31am Hx of delivery, curr ently acute October 04, 2024 1 0:31am acute October 04, 2024 10:31am Supervision of high-risk acute October 04, 2024 1 0:31am UTI in acute October 10:31am Thrombocytopenia affecting chronic October 04, 2024 1 0:31am Nasal septum ulceration acute [facility] 2024 9:06am Thrombocytopenia affecting chronic October 17, 2024 9:06am [facility] Work Phone: 1(326) 499-102403-14-2025 Evaluation note* Diagnosis Onset Date Resolution Status [...] delivery by vacuum extraction, currently acute [facility] 2024 2:10pm Hx of delivery, curr ently acute October 02, 2024 2 :10pm acute October 02, 2024 2:10pm Supervision of high-risk acute October 02, 2024 2 :10pm Cystocele with incomplete uterovaginal prolapse acute October 04, 2024 10:31am History of chorioamnionitis acute October 04, 2024 10:31am Hx of delivery by vacuum extraction, currently acute [facility] 2024 10:31am Hx of delivery, curr [...] delivery by vacuum extraction, currently acute [facility] 2024 2:49pm Hx of delivery, curr ently acute October 23, 2024 2:49pm Nasal septum ulceration acute [facility] 2024 2:49pm acute October 23 2:49pm Supervision of high-risk acute October 23, 2024 2:49pm UTI in acute October 2:49pm Thrombocytopenia affecting chronic October 23, 2024 2:49pm [facility] Work Phone: 1(278) 184-232203-14-2025 Evaluation note* Diagnosis Onset Date Resolution Status [...] delivery by vacuum extraction, currently acute [facility] 2024 2:10pm Hx of delivery, curr ently acute October 02, 2024 2 :10pm acute October 02, 2024 2:10pm Supervision of high-risk acute October 02, 2024 2 :10pm Cystocele with incomplete uterovaginal prolapse acute October 04, 2024 10:31am History of chorioamnionitis acute October 04, 2024 10:31am Hx of delivery by vacuum extraction, currently acute [facility] 2024 10:31am Hx of delivery, curr ently acute October 04, 2024 1 0:31am acute October 04, 2024 10:31am Supervision of high-risk acute October 04, 2024 1 0:31am UTI in acute October 10:31am Thrombocytopenia affecting chronic October 04, 2024 1 0:31am Nasal septum ulceration acute [facility] 2024 9:06am Thrombocytopenia affecting chronic October 17, 2024 9:06am Cystocele with incomplete uterovaginal prolapse acute October 23, 2024 2:49pm History of chorioamnionitis acute October 23, 2024 2:49pm Hx of delivery by vacuum extraction, currently acute [facility] 2024 2:49pm Hx of delivery, curr ently acute October 23, 2024 2:49pm Nasal septum ulceration acute [facility] 2024 2:49pm acute October 23 2:49pm Supervision of high-risk acute October 23, 2024 2:49pm UTI in acute October 2:49pm Thrombocytopenia affecting chronic October 23, 2024 2:49pm Cystocele with incomplete uterovaginal prolapse acute November 08, 2024 3:37pm History of chorioamnionitis acute November 08, 2024 3:37pm Hx of delivery by vacuum extraction, currently acute [facility] 2024 3:37pm Hx of delivery, curr ently acute November 08, 2024 3 :37pm Nasal septum ulceration acute [facility] 2024 3:37pm acute November 08, 2024 3:37pm Supervision of high-risk acute November 08, 2024 3 :37pm UTI in acute October 3:37pm Thrombocytopenia affecting chronic November 08, 2024 3 :37pm [facility] Work Phone: 1(380) 923-266702-07-2025 Evaluation note* Diagnosis Onset Date Resolution Status [...] high-risk acute October 02, 2024 2 :10pm [facility] Work Phone: 1(964) 140-622602-07-2025 Evaluation note* Diagnosis Onset Date Resolution Status [...] 1 0:31am UTI in acute October 10:31am [facility] Work Phone: 1(492) 982-751502-07-2025 Evaluation note* Diagnosis Onset Date Resolution Status [...] affecting acute October 04, 2024 1 0:31am [facility] [employer] [facility] Work Phone: 1(478) 550-901711-26-2024 History of Present illness Narrative* [place] [...] tablet Tamika Sandhu MD [facility] Phone: 1(277) 710-341511-26-2024 Instructions* Patient Instructions* Tamika Sandhu MD - 03/28/2024 11:20 AM EST We will treat with amoxicillin and also discussed referral to ENT for further evaluation of the sinus issues she has had. She will let us know if she needs a referral. [facility] Work Phone: 1(991) 183-832908-16-2024 History of Present illness Narrative* [place] [...] disorder Tamika Sandhu MD [facility] Work Phone: 1(801) 529-605308-16-2024 Instructions* Patient Instructions* Tamika Sandhu MD - 12/17/2023 9:00 AM EDT Continue current medications. Follow up with specialists as scheduled. Follow up in 6 months, sooner if needed. [facility] Work Phone: 1(467) 184-796202-16-2024 History of Present illness Narrative* [place] [...] tablet Tamika Sandhu MD [facility] Work Phone: 1(590) 965-968002-16-2024 Instructions* Patient Instructions* Tamika Sandhu MD - 06/18/2023 10:40 AM EST Will treat with augmentin and prednisone. Follow up if no improvement or if she worsens. Otherwise continue current medications and follow up in 6 months. [facility] Work Phone: 1(733) 174-622401-05-2024 History of Present illness Narrative* CAMILA Reid - 05/07/2023 9:05 AM EST [facility] CAMILA Reid Visit Note [...] HISTORY 04/07/2022 Appendectomy OTHER SURGICAL HISTORY 04/07/2022 [place] tooth extraction FAMILY HX: No pertinent history. [...] taking Tylenol without much relief; no other [id number] medications or home remedies for symptom management. [...] Musculoskeletal: Grossly normal; appropriate for age. Integumentary: [place], warm, dry, and intact. No rashes or [...] and answered. CAMILA Reid Advanced Practice Provider [facility] documented in this [facility] Work Phone: [phone]) 550-146308-14-2023 History of Present illness Narrative* Debbie Otero [...] Primary Tamika Sandhu MD [facility] Work Phone: [phone]) [phone] Instructions* Patient Instructions* Tamika Sandhu MD - 12/14/2022 9:20 AM EDT Continue current medications. Follow up in 6 months, sooner if needed. [facility] Work Phone: 1([phone]) 515-429205-02-2023 History of Present illness Narrative* Porsha Lord [...] disorder Tamika Sandhu MD [facility] Work Phone: 1([phone]) 837-704605-02-2023 Instructions* Patient Instructions* Tamika Sandhu MD - 09/01/2022 10:00 AM EDT Will increase the vyvanse to 40 mg daily, follow up here in 3 months, sooner if needed. [facility] Work Phone: [phone]) 393-197809-03-2021 NoteHNO ID: [id number] Author: Trevor Mireles PT Service: ? Author Type: Physical Therapist Type: Progress Notes Filed: 03/04/2021 11:23 AM Note Text: 03/04/2021 [facility] PHYSICAL THERAPY [...] of Care: created on 01/03/21 through 03/04/21 [place] in home exercise program. Patient will demonstrate [...] Planned: 3 Planned Treatment Interventions: Therapeutic exercise (84172);Manual therapy (25865);Self-[place] [facility] management (02613);Patient/Family/Caregiver Education PLAN FOR NEXT VISIT: progress strengthening [...] a bulge in vaginal canal. Pt reports [employer] determined it was prolapse. Pt reports wearing [...] History Difficulty starting stream: (more content not included)...[facility] Diagnosis Attention deficit disorder, unspecified hyperactivity presence documented in this encounter [facility] Work Phone: Evaluation note* Diagnosis Attention deficit disorder, unspecified hyperactivity presence- Primary documented in this encounter [facility] Work Phone: Evaluation note* Diagnosis Influenza- Primary Influenza with other respiratory manifestations documented in this encounter [facility] Work Phone: Evaluation note* Diagnosis Acute sinusitis, recurrence not specified, unspecified location- Primary Attention deficit disorder, unspecified hyperactivity presence documented in this encounter [facility] Work Phone: Evaluation note* Diagnosis Acute sinusitis, recurrence not specified, unspecified location- Primary documented in this encounter [facility] Work Phone: Evaluation note* Diagnosis Attention deficit disorder, unspecified hyperactivity presence documented in this encounter [facility] Work Phone: History of Present illness NarrativeHere for f/u recent labs, ADHD. We did get her records from her psychiatrist.-[facility] Work Phone: Reason for referral (narrative)* Consultation (Routine) - Authorized Specialty Diagnoses / Procedures Referred By Atul gonzalez Referred To Contact Primary Care Diagnoses Attention deficit disorder, unspecified hyperactivity presence Procedures Follow Up In Primary Care - Established Longsdorf, Tamika A, MD [address] [place] [address] Referral ID Status Reason Start Date Expiration Date V isits Requested Visits Authorized [id number] Authorized 12/14/2022 06/12/2023 1 1 [facility] Work Phone: Reehcy for referral (narrative)* Consultation (Routine) - Authorized Specialty Diagnoses / Procedures Referred By Contac t Referred To Contact Primary Care Diagnoses Attention deficit disorder, unspecified hyperactivity presence Procedures Follow Up In Primary Care - Established Tamika Sandhu MD [address] [place] [address] Referral ID Status Reason Start Date Expiration Date V isits Requested Visits Authorized [id number] Authorized 06/18/2023 06/17/2024 1 1 [facility] Work Phone: [place] for referral (narrative)* Consultation (Routine) - Authorized Specialty Diagnoses / Procedures Referred By Contac t Referred To Contact Primary Care Procedures Follow Up In Primary Care - Established Tamika Sandhu MD [address] [place] [address] Referral ID Status Reason Start Date Expiration Date V isits Requested Visits Authorized [id number] Authorized 12/17/2023 12/16/2024 1 1 [facility] Work Phone: Reflrt for referral (narrative)No reason for referral information availableP[facility] Work Phone: Reason for visit Narrative* Consultation (Routine) - Closed Specialty Diagnoses / Procedures Referred By Contac t Referred To Contact Primary Care Diagnoses Attention deficit disorder, unspecified hyperactivity presence Procedures Follow Up In Primary Care - Established Tamika Sandhu MD [address] [place] [address] Referral ID Status Reason Start Date Expiration Date Visits Re quested Visits Authorized [id number] Closed 12/14/2022 06/12/2023 1 1 [facility] Work Phone: Reason for visit Narrative* Consultation (Routine) - Authorized Specialty Diagnoses / Procedures Referred By Atul gonzalez Referred To Contact Primary Care Diagnoses Attention deficit disorder, unspecified hyperactivity presence Procedures Follow Up In Primary Care - Established Tamika Sandhu MD [address] [place] [address] Referral ID Status Reason Start Date Expiration Date V isits Requested Visits Authorized [id number] Authorized 06/18/2023 06/17/2024 1 1 [facility] Work Phone: Summary Purpose Family History [...] section and content) DATE CREATED AUTHOR 01/17/2018 [facility] DATE CREATED AUTHOR AUTHOR'S ORGANIZ ATION 06/06/2021 [facility] DATE CREATED AUTHOR AUTHOR'S ORGANIZ ATION 12/05/2021 [facility] DATE CREATED AUTHOR AUTHOR'S ORGANIZ ATION 05/20/2022 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 Relationship Specialty Start Date End Date Tamika Sandhu MD [address] [facility] [place] [address] PCP - General 04/07/22 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 Relationship Specialty Start Date End Date Tamika Sandhu MD [address] [place] [address] PCP - General 04/07/22 Tamika Sandhu MD [address] [facility] [place] [id number] PCP - [facility] PCP 07/01/22 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 Relationship Specialty Start Date End Date Tamika Sandhu MD [address] [place] [address] PCP - General 04/07/22 Tamika Sandhu MD [address] [place] [address] PCP - [place] [facility] PCP 07/01/22 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 Relationship Specialty Start Date End Date Tamika Sandhu MD [address] [facility] [place] [address] PCP - General 04/07/22 Tamika Sandhu MD [address] [facility] [place] [id number] PCP - [place] [facility] PCP 07/01/22 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 Relationship 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 Start Date End Date Tamika Sandhu MD [address] [address] PCP - General 04/07/22 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 Relationship Specialty Start Date End Date Tamika Sandhu MD [address] [facility] [place] [address] PCP - General 04/07/22 Team Status: Active [...] 2024 End: September 06, 2024 Kamla Zheng RECAPPER, RECAPPER-C Attending Provider Active Start: September 06, 2024 [...] 2024 End: October 04, 2024 Kamla Zheng RECAPPER, RECAPPER-C Attending Provider Active Start: October 04, 2024 End: October 04, 2024 Team Status: Active Member Role Status Dates No Primary Care Physician Primary Care Provider Active Start: October 04, 2024 Kamla Zheng RECAPPER, RECAPPER-C Attending Provider Active Start: October 04, 2024 Kamla Zheng RECAPPER, RECAPPER-C Referring Provider Active Start: October 04, 2024 Team Status: Inactive Member Role Status Dates No Primary Care Physician Primary Care Provider Active Start: October 04, 2024 End: October 04, 2024 Kamla Zheng RECAPPER, RECAPPER-C Attending Provider Active Start: October 04, 2024 End: October 04, 2024 Kamla Zheng RECAPPER, RECAPPER-C Referring Provider Active Start: October 04, 2024 [...] 2024 End: September 06, 2024 Kamla Zheng RECAPPER, RECAPPER-C Attending Provider Active Start: September 06, 2024 [...] 04, 2024 End: October 04, 2024 Kamla hZeng RECAPPER, RECAPPER-C Attending Provider Active Start: October 04, 2024 End: October 04, 2024 Team Status: Inactive Member Role/Relationship Status Dates No Primary Care Physician Primary Care Provider Active Start: October 04, 2024 End: October 04, 2024 Kamla Zheng RECAPPER, RECAPPER-C Attending Provider Active Start: October 04, 2024 End: October 04, 2024 Kamla Zheng RECAPPER, RECAPPER-C Referring Provider Active Start: October 04, 2024 [...] 2024 End: November 08, 2024 Kamla Zheng RECAPPER, RECAPPER-C Attending Provider Active Start: November 08, 2024 [...] 2024 End: September 06, 2024 Kamla Zheng RECAPPER, RECAPPER-C Attending Provider Active Start: September 06, 2024 [...] 2024 End: October 04, 2024 Kamla Zheng RECAPPER, RECAPPER-C Attending Provider Active Start: October 04, 2024 End: October 04, 2024 Team Status: Inactive Member Role/Relationship Status Dates No Primary Care Physician Primary Care Provider Active Start: October 04, 2024 End: October 04, 2024 Kamla Zheng RECAPPER, RECAPPER-C Attending Provider Active Start: October 04, 2024 End: October 04, 2024 Kamla Zheng RECAPPER, RECAPPER-C Referring Provider Active Start: October 04, 2024 [...] 2024 End: November 08, 2024 Kamla Zheng RECAPPER, RECAPPER-C Attending Provider Active Start: November 08, 2024 [...] 2024 End: November 23, 2024 Dr. Citlalli Carbera MD Attending Provider Active Start: November 23, [...] BE BASED ON THE PRIMARY CLINICAL RECORDS. [employer] provides no warranty or guarantee of the accuracy or completeness of information in this document.
[2024-12-08 01:38] LABS: Hematocrit 35.7 % (37-47); Hemoglobin 12.0 g/dL (12.0-15.0); Immature Granulocytes Count 0.070 X10^3/uL (0.0-0.0); Mean Corp Hgb Conc 33.6 g/dL (32-36); Mean Corpuscular Volume 89.7 fL (81-99); Mean Platelet Vol. 11.9 fl (6.2-12.0); NRBC Flagged by Analyzer 0 % (0-5); Platelet Count 109 K/mm3 (150-450); RBC Distribution Width CV 11.9 % (11.6-14.6); RBC Distribution Width SD 38.5 fl (35.1-43.9); Red Blood Count 3.98 M/mm3 (4.2-5.4); White Blood Count 12.3 K/mm3 (4.4-11.0)
[2024-12-08 01:50] LABS: Fibrinogen 472 mg/dl (203-444)
--- NOTE | 2024-12-08 07:41 | US_ITS ---
PROCEDURE: OB BIOPHYSICAL PROF W/O NST 12/08/2024 REASON FOR EXAM: R/O ABRUPTION -- VIEW PLACENTA TECHNIQUE: OB BIOPHYSICAL PROF W/O NST COMPARISON: None FINDINGS Number: 1 Position: Vertex Placental Position: Anterior and not low-lying Placental Abnormalities: There is a 3.2 cm by 1.6 cm x 3.3 cm loculated soft tissue density between the posterior wall of the placenta in the uterine wall. This may represent localized abruption. ESTIMATED GESTATIONAL AGE: Baseline: 36 weeks and 1 day ESTIMATED DATE OF DELIVERY: Baseline: January 04, 2025 BIOPHYSICAL ASSESSMENT: Amniotic Fluid Volume: 4 cm x 2.6 cm Amniotic Fluid Index: 9.81 cm (8-24 cm normal range) Cardiac Motion: 137 beats per minute (average) Trunk and Limb Motion: Present. MATERNAL ANATOMY: Adnexa: Neither maternal ovary is successfully identified. Biophysical profile: Breathing movements: 2 Gross body movements: 2 tone: 2 Amniotic fluid volume: 2 Total score: 8/8 US/OB Biophysical Prof W/O NST IMPRESSION: Normal biophysical profile. There is a 3.2 cm 1.6 cm x 3.3 cm loculated hypodensity between the placenta in the wall of the uterus in the anterior region suggestive of possible early abruption. Clinical correlation recommended. Reading Location: [facility]
[2024-12-08] MEDS: Lactated Ringers 1,000 ML 999 ML IV (08:30)
[2024-12-08 09:13] LABS: Hematocrit 35.6 % (37-47); Hemoglobin 11.8 g/dL (12.0-15.0); Immature Granulocytes Count 0.070 X10^3/uL (0.0-0.0); Mean Corp Hgb Conc 33.1 g/dL (32-36); Mean Corpuscular Volume 90.4 fL (81-99); Mean Platelet Vol. 12.5 fl (6.2-12.0); NRBC Flagged by Analyzer 0 % (0-5); Platelet Count 116 K/mm3 (150-450); RBC Distribution Width CV 11.9 % (11.6-14.6); RBC Distribution Width SD 39.4 fl (35.1-43.9); Red Blood Count 3.94 M/mm3 (4.2-5.4); White Blood Count 11.2 K/mm3 (4.4-11.0)
[2024-12-08 10:14] LABS: Mucous, Urine 0 SEEN /hpf (<or=2+)
[2024-12-08 10:21] LABS: Color, Urine Yellow (Yellow); Glucose, Dipstick Normal (Normal); Ketone-Dipstick Negative (Negative); Leukocyte Esterase-Dipstick 100 /ul (Negative); Nitrite-Dipstick Negative (Negative); Occult Blood-Urine 250 /ul (Negative); Protein-Dipstick Negative (Negative); Specific Gravity, Urine 1.015 (1.002-1.030); Urine Bilirubin Dipstick Negative (Negative)
[2024-12-08 10:23] LABS: Syphilis Antibodies Nonreactive (Nonreactive)
[2024-12-08 10:35] LABS: Red Blood Cells-Urine 0-5 SEEN /hpf (0-5); Squamous Epithelial Cells - UA 0-5 SEEN /hpf (5-10)
--- NOTE | 2024-12-08 11:25 | HP.PCM.OB_ITS ---
HPI - General General Date of Admission: 12/08/24 HPI Narrative COOPER CROCKETT, is a 34 F 36.1 weeks who presents to unit with vaginal bleeding. BPP 12/08 but shows [id number] localized abruption. Decision made for induction of labor. Maternal Data Information MARGO Calculator Estimated Delivery Date Method Current WG Current Estimate 01/04/25 LMP (Uncertain) 36w 1d Other Estimates 01/02/25 Ultrasound #1 36w 3d Final MARGO: 01/04/25 Final MARGO Source: US >20 weeks Gestational age: 36.1 PFSH PFSH Medical History Varicose vein vulva-delivered FH: breast cancer Cystitis during , antepartum False labor Gestational thrombocytopenia 30 weeks gestation of Home Medications ?Medication ?Instructions ?Recorded ?Last Taken ?Type PNV 153-FA 400 mcg-om3 35 mg-dha 1 tab PO DAILY pregna ncy 06/02/24 12/07/24 History 25 mg-epa 5 mg-fish oil chew tablet cephalexin 500 mg capsule 500 mg PO Q6 7 days #28 caps 11/21/24 Unknown Rx Allergy/AdvReac Type Severity Reaction Status Date / Time No Known Allergies Allergy Verified 12/08/24 01:10 Family History Grandmother Breast cancer, Onset Age: 65 Maternal- mets to liver Grandfather Myocardial infarction, Onset Age: 78 Paternal Surgical History H/O basal cell carcinoma excision History of surgery History of surgery History of surgery Social History adopted: No household members: spouse and children number of children: 2 current occupational status: unemployed current occupation: [employer] pets and animals: Yes pets and animals: dog(s) history of recent travel: No sexually active: Yes Smoking Status: Never smoker alcohol intake: current alcohol intake frequency: a few times a month details: Not while substance use type: does not use well-balanced diet: daily or most days caffeine: Yes Type: coffee Number of servings: 2 eating out: rarely or never during the past year weight has: remained stable what type of physical activity do you participate in: none ramesh/zoroastrian: Baptism seatbelt use: always do you feel safe at home: Yes 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 Date Name GA/Weeks Outcome Route Bth Weight Infant Gen Labor Lgth Anesthesia Del Locatn Provider FOB 08/24/19 Scotlyn 36 live - vacuum 6lb 8 oz Female 12 e pidural [facility] Ibis Rush 02/22/21 Ivette 38 live - full term 6# 8oz Female epi dural [facility] Nehemias Rush Delivery Date: 08/24/19 Last Updated by: Carlee He MD pprom, labor, chorioamnionitis Delivery Date: 02/22/21 Last Updated by: Patricia Nichols iol, , prolapse(vulvo-vaginal varicosity) at 26 wks and two more times after- no problems since Visit Details Expected Delivery Route/Plan Labor Preferences- CB/BF classes: no labor support person: Victor Manuel labor intervention preferences: [] pain management options preferred: discussed cut cord/dad catch: cord : yes PP control planned: discussed discussed possible routes of delivery and associated risks: [] special requests: [] Plans Covid status: [] Flu vaccine: [] Tdap vaccine: [] Rhogam: [] LARC form signed: [] Problem list reviewed and updated with the most current plan of care details and appropriate orders placed. Relevant counseling for the gestational age provided. Continue routine care and follow up unless otherwise noted in visit notes/problem list details OB Flowsheet Initial Weight: Not Recorded Date -?-?-?-?-?-?-?-?-?-?-?-?- EGA Weight BP Urine Prot -?-?-?-?-?-?-?-?-?-?-?-?- Glucose FHR FuHt Pres Dilation -?-?-?-?-?-?-?-?-?-?-?-?- Effaced St Visit Note 06/09/24 -?-?-?-?-?-?-?-?-?-?-?-?- 10w 1d 121 lb 6 oz 116/80 -?-?-?-?-?-?-?-?-?-?-?-?- 175 -?-?-?-?-?-?-?-?-?-?-?-?- SM- CRL 3.5 cm c ons with LMP 07/14/24 -?-?-?-?-?-?-?-?-?-?-?-?- 15w 1d 126 lb 2 oz 115/75 Nega tive -?-?-?-?-?-?-?-?-?-?-?-?- Negative 164 -?-?-?-?-?-?-?-?-?-?-?-?- JV- has complain t about headaches from sinus congestion which is also secondary to allergies. anatomy ultrasound ordered. 08/09/24 -?-?-?-?-?-?-?-?-?-?-?-?- 18w 6d 130 lb 103/65 Negative -?-?-?-?-?-?-?-?-?-?-?-?- Negative 150 -?-?-?-?-?-?-?-?-?-?-?-?- SM- no vb lof co vulvar discomfort, has had even before 09/06/24 -?-?-?-?-?-?-?-?-?-?-?-?- 22w 6d 134 lb 8 oz 106/70 Nega tive -?-?-?-?-?-?-?-?-?-?-?-?- Negative 153 -?-?-?-?-?-?-?-?-?-?-?-?- MH-No VB, LOF. G oodFM. No concerns 10/02/24 -?-?-?-?-?-?-?-?-?-?-?-?- 26w 4d 139 lb 4 oz 96/65 Nega tive -?-?-?-?-?-?-?-?-?-?-?-?- Negative 155 25 -?-?-?-?-?-?-?-?-?-?-?-?- KW- no vb/crampi ng. good fm. glucose today. support belt for pelvic pain. 10/04/24 -?-?-?-?-?-?-?-?-?-?-?-?- 26w 6d 139 lb 109/70 Negative -?-?-?-?-?-?-?-?-?-?-?-?- Negative 148 0 -?-?-?-?-?-?-?-?-?-?-?-?- MH-No VB, LOF. H as vaginal prolapse/see exam note. 10/23/24 -?-?-?-?-?-?-?-?-?-?-?-?- 29w 4d 144 lb 4 oz 95/60 Nega tive -?-?-?-?-?-?-?-?-?-?-?-?- Negative 140 28 -?-?-?-?-?-?-?-?-?-?-?-?- Sm- no vb lof go od fm no reuglar ctx reviewed platelet counts. reviewed pelvic pressure and reviewed pessary indications 11/08/24 -?-?-?-?-?-?-?-?-?-?-?-?- 31w 6d 143 lb 2 oz 118/64 Nega tive -?-?-?-?-?-?-?-?-?-?-?-?- Negative 146 30 -?-?-?-?-?-?-?-?-?-?-?-?- MH-No VB, LOF. S ome pubic bone discomfort. Good Fm. 11/23/24 -?-?-?-?-?-?-?-?-?-?-?-?- 34w 0d 145 lb 8 oz 99/64 Nega tive -?-?-?-?-?-?-?-?-?-?-?-?- Negative 150 32 1.5 -?-?-?-?-?-?-?-?-?-?-?-?- SM- seen in [facility] wednesday for contracitons and bleeding, had more brown discharge yesterday morning. NST FHR Rate Baby A Baseline: 135 Variability:: Moderate Accelerations:: 15 x 15 Decelerations:: None NST Reactive:: Yes FHR Category:: Category I Uterine Activity:: irregular ROS Constitutional Constitutional: Denies change in weight, fatigue, fever(s), headache(s), poor appetite or weakness Eyes Eyes: Denies blurry vision, change in vision, floaters, seeing flashes or spots in vision ENT HEENT: Denies dizziness, headache(s), loss taste/smell or sore throat Cardiovascular Cardiovascular: Denies chest pain, dizziness, dyspnea, irregular heart rhythm, lightheadedness, palpitations or rapid heart rate Respiratory/Chest Respiratory/Chest: Denies change in mental status, chest tightness, cough, dyspnea or breast pain Gastrointestinal Gastrointestinal: Denies anorexia, chewing difficulty, constipation, diarrhea or weight changes Genitourinary Genitourinary: Denies difficulty urinating, dysuria, flank pain, genital pain, urinary frequency or urinary urgency Musculoskeletal Musculoskeletal: Denies back pain, difficulty walking, extremity pain, joint pain, muscle cramps or muscle weakness Integumentary Integumentary: Denies lesions or unusual bruising Neurologic Neurologic: Denies abnormal movements, abnormal speech, dizziness, numbness, seizure-like activity, syncope or weakness Psychiatric Psychiatric: Denies behavioral changes, change in appetite, confusion, depression, homicidal ideation, suicidal ideation or suicidal thoughts Endocrine Endocrinology: Denies excessive sweating, polydipsia or polyuria Hematologic/Lymphatic Hematologic/Lymphatic: Denies anemia Allergic/Immunologic Allergic/Immunologic: Denies itchy eyes, lip swelling, throat swelling, tongue swelling or wheezing Vital Signs Vital Signs Vital Signs: 12/08/24 00:56 12/08/24 00:56 12/08/24 00:57 Temperature Temperature Source Temporal Pulse Rate 101 H Respiratory Rate Blood Pressure 95/55 L BP Systolic 95 BP Diastolic 55 Pulse Ox 12/08/24 00:57 12/08/24 00:57 12/08/24 00:57 Temperature 97.1 F L Temperature Source Pulse Rate Respiratory Rate 16 Blood Pressure BP Systolic BP Diastolic Pulse Ox 98 12/08/24 05:02 12/08/24 05:02 12/08/24 05:02 Temperature Temperature Source Temporal Pulse Rate 93 Respiratory Rate Blood Pressure 92/54 L BP Systolic 92 BP Diastolic 54 Pulse Ox 12/08/24 05:02 12/08/24 05:02 12/08/24 05:02 Temperature 97.1 F L Temperature Source Pulse Rate Respiratory Rate 17 Blood Pressure BP Systolic BP Diastolic Pulse Ox 98 12/08/24 08:50 12/08/24 08:50 12/08/24 08:50 Temperature Temperature Source Tympanic Pulse Rate 88 Respiratory Rate Blood Pressure 97/55 L BP Systolic 97 BP Diastolic 55 Pulse Ox 12/08/24 08:50 12/08/24 08:50 12/08/24 08:50 Temperature 98.2 F Temperature Source Pulse Rate Respiratory Rate 15 Blood Pressure BP Systolic BP Diastolic Pulse Ox 96 Weight Weight: 151 lb Body Mass Index (BMI) 23.6 Physical Exam Const alert, oriented x3 and no apparent distress General Appearance: cooperative Orientation / Consciousness: awake HEENT normocephalic Neck full ROM Lymph Lymphatic: no lymphadenopathy noted Chest inspection of chest normal Resp normal respiratory effort and normal air movement Effort and Inspection: able to speak in complete sentences and symmetric chest movement GI soft to palpation and non-tender Inspection: gravid Palpation: soft; Negative for tender external exam normal Back/Spine normal to inspection Extremity normal to inspection and full ROM Skin no rashes or lesions noted Psych mental status grossly normal Appearance: grossly normal Speech: normal speech Labs Labs Labs: Blood Type A POSITIVE Antibody Screen NEGATIVE Hct 35.6 % (37-47) L Hgb 11.8 g/dL (12.0-15.0) L Obstetrics Ultrasound Syphilis Total Ab Nonreactive (Nonreactive) Rubella IgG Antibody Reactive (Nonreactive) Hep Bs Antigen Non-Reactive (Nonreactive) Hepatitis C Antibody Non-Reactive (Nonreactive) Chlamydia DNA (GISELA) Negative N.gonorrhoeae DNA (GISELA) Negative HIV 1&2 Antibody Nonreactive (Nonreactive) Glucose 1 Hr 50 gm 110 mg/dL (70-140) Group B Strep DNA POSITIVE (Negative) H Rhogam given: No Assessment & Plan (1) Encounter for induction of labor: PLAN: Patient presents IOL, plan management for with pitocin/AROM. Pain management: plans epidural. GBS unknown. Management of any complications: see list I have reviewed the [facility] and made any clinically relevant updates. Dr Barger aware of assessment, plan and admission. agrees with above (2) Headache in : (3) Thrombocytopenia affecting : COMMENT: Platelet count has been greater than 100K so no intervention needed at this time. She does not meet the criteria for ITP. If Platelets are greater than 80,000, she can get Epidural anesthesia since that is what she wants.. (4) Nasal septum ulceration: (5) UTI in : QUALIFIERS: Trimester: second trimester Qualified Code(s): O23.42 - Unspecified infection of urinary tract in , second trimester COMMENT: macrobid initially. Culture actinomyces, at 50,000 but will treat with Amoxil X 4 wk and will then need repeat culture. LM for ID to discuss, patient declining ATB tx. (6) Cystocele with incomplete uterovaginal prolapse: COMMENT: declines pessary (7) Hx of delivery, currently : COMMENT: first 36 wks (8) Supervision of high-risk : QUALIFIERS: Trimester: third trimester Qualified Code(s): O09.93 - Supervision of high risk , unspecified, third trimester COMMENT: PRR , MARGO 01/04/25,girl PC Eileen, [place] Victor Manuel (9) Hx of delivery by vacuum extraction, currently : COMMENT: first (10) : QUALIFIERS: Weeks of gestation: 34 weeks Qualified Code(s): Z3A.34 - 34 weeks gestation of COMMENT: NIPT low risk, f/u anatomy complete & nl. (11) History of chorioamnionitis: COMMENT: first Charges/Coding Multi Select Codes Urinary/Genital Urinary/Genital CPT Codes: No Charge
[2024-12-08] MEDS: Oxytocin 15 Units/NS 250ml 15 UNITS/250 ML IV.SOLN 2 UNITS IV (12:15)
[2024-12-08] MEDS: Lactated Ringers 1,000 ML 50 ML IV ×2 (12:15→13:11)
[2024-12-08] MEDS: Penicillin G Pot 5,000,000 UNITS in 0.9% Normal Saline (100mL MB+) 100 ML 150 UNITS IV (13:11)
--- NOTE | 2024-12-08 14:07 | PN_ITS ---
Progress Note Coping well with contractions-sitting up for epidural now current tracing: FHT: 140 Moderate variability reactive no decelerations category I tracing [place]: tachysystole with Contractions-d/c pitocin and continue to monitor. Membranes:ruptured for clear SVE:/2 reviewed tracing abnormalities since last note: in person collaboration with Dr Yang at this time for known abruption and FHT tracing. plan to continue to monitor and see if change is made without pitocin. FHT is cat 1 A/P: Continue with position changes Titrate pitocin per protocol Epidural per anesthesia PCN for GBS prophylaxis Anticipate Dr Barger aware of above assessment and agrees with plan of care Assessment & Plan Assessment/Plan (1) Encounter for induction of labor: (2) Headache in : (3) Thrombocytopenia affecting : (4) Placental abruption: (5) Nasal septum ulceration: (6) UTI in : QUALIFIERS: Trimester: second trimester Qualified Code(s): O23.42 - Unspecified infection of urinary tract in , second trimester (7) Cystocele with incomplete uterovaginal prolapse: (8) Hx of delivery, currently : (9) Supervision of high-risk : QUALIFIERS: Trimester: third trimester Qualified Code(s): O09.93 - Supervision of high risk , unspecified, third trimester (10) Hx of delivery by vacuum extraction, currently : (11) : QUALIFIERS: Weeks of gestation: 34 weeks Qualified Code(s): Z3A.34 - 34 weeks gestation of (12) History of chorioamnionitis: Multi Select Codes Urinary/Genital Urinary/Genital CPT Codes: No Charge
[2024-12-08] MEDS: Lactated Ringers 1,000 ML 200 ML IV ×2 (14:47→19:53)
[2024-12-08] MEDS: Penicillin G 3,000,000 Units 50 ML 100 UNITS IV ×2 (17:58→22:27)
[2024-12-08] MEDS: fentaNYL-bupivacaine (epidural) 100 ML BAG EPIDURAL ×2 (18:40→22:53)
--- NOTE | 2024-12-08 21:45 | PCM.PN.BLA ---
Progress Note comfortable with epidural current tracing: FHT: 150 Moderate variability reactive occasional late deceleration but overall category I tracing [place]: 2-3 minute Contractions Pitocin at 1mu Membranes:remains clear SVE:5.5/80/-1 A/P: Continue with position changes Titrate pitocin per protocol Epidural per anesthesia PCN for GBS prophylaxis Anticipate Dr Del Cid aware of above assessment and agrees with plan of care Assessment & Plan Assessment/Plan (1) Placental abruption: (2) Encounter for induction of labor: (3) Headache in : (4) Thrombocytopenia affecting : (5) Nasal septum ulceration: (6) UTI in : QUALIFIERS: Trimester: second trimester Qualified Code(s): O23.42 - Unspecified infection of urinary tract in , second trimester (7) Cystocele with incomplete uterovaginal prolapse: (8) Hx of delivery, currently : (9) Supervision of high-risk : QUALIFIERS: Trimester: third trimester Qualified Code(s): O09.93 - Supervision of high risk , unspecified, third trimester (10) Hx of delivery by vacuum extraction, currently : (11) : QUALIFIERS: Weeks of gestation: 34 weeks Qualified Code(s): Z3A.34 - 34 weeks gestation of (12) History of chorioamnionitis: Multi Select Codes Urinary/Genital Urinary/Genital CPT Codes: No Charge
[2024-12-08] MEDS: LACTATED RINGERS 500 ML 999 ML IV (22:57)
[2024-12-09] VITALS (14 sets, daily range): BP systolic 86–102; BP diastolic 49–77; PULSE 84–111; RESP 16–17; TEMP 36.8–37.2; O2SAT 97–100
--- NOTE | 2024-12-09 00:32 | OB.VAGDELI_ITS ---
Assessment & Plan (1) Vaginal delivery: COMMENT: KW girl placental abruption (2) Placental abruption: (3) Encounter for induction of labor: (4) Headache in : (5) Thrombocytopenia affecting : COMMENT: Platelet count has been greater than 100K so no intervention needed at this time. She does not meet the criteria for ITP. If Platelets are greater than 80,000, she can get Epidural anesthesia since that is what she wants.. (6) Nasal septum ulceration: (7) UTI in : QUALIFIERS: Trimester: second trimester Qualified Code(s): O23.42 - Unspecified infection of urinary tract in , second trimester COMMENT: macrobid initially. Culture actinomyces, at 50,000 but will treat with Amoxil X 4 wk and will then need repeat culture. LM for ID to discuss, patient declining ATB tx. (8) Cystocele with incomplete uterovaginal prolapse: COMMENT: declines pessary (9) Hx of delivery, currently : COMMENT: first 36 wks (10) Supervision of high-risk : QUALIFIERS: Trimester: third trimester Qualified Code(s): O09.93 - Supervision of high risk , unspecified, third trimester COMMENT: PRR , MARGO 01/04/25,girl PC [place], Ivette Victor Manuel (11) Hx of delivery by vacuum extraction, currently : COMMENT: first (12) : QUALIFIERS: Weeks of gestation: 34 weeks Qualified Code(s): Z3A.34 - 34 weeks gestation of COMMENT: NIPT low risk, f/u anatomy complete & nl. (13) History of chorioamnionitis: COMMENT: first Maternal Data Information MARGO Calculator Estimated Delivery Date Method Current WG Current Estimate 01/04/25 LMP (Uncertain) 36w 2d Other Estimates 01/02/25 Ultrasound #1 36w 4d Final MARGO: 01/04/25 Final MARGO Source: US >20 weeks Gestational age: 36.2 Vaginal Delivery Maternal Presentation Maternal Presentation: Medically Indicated Induction Maternal Presentation: Presented to unit for bleeding at 36.1 weeks. US showed partial placental abruption and decision made to induce Type of Induction: Pitocin and Amniotomy Medical Reason for Induction: Abruption Vaginal Delivery Information Procedure Performed: Spontaneous Vaginal Delivery Surgeon/Practitioner: Kecia Faye Date of Procedure: 12/09/24 Pre-Procedure Diagnosis: see problem list Post-Procedure Diagnosis: same Type of anesthesia: Epidural Estimated Blood Loss: 100 Time of Delivery: 00:19 Findings Description of procedure: Progressed well to 10cm dilated and made steady progress with effective maternal pushing. Infant was noted to be in right brow presentation and head was rotated to VICENTE. Patient pushed effectively with contractions and delivered the head in VICENTE presentation. The head was delivered atraumatically and no nuchal cord was identified. The anterior and posterior shoulders delivered without complication followed by the rest of the and the infant was placed on the maternal abdomen. Delayed cord clamping was employed for approximately 3 minutes. Cord was clamped and cut and gentle traction was applied to the cord and the placenta delivered spontaneously. Immediately following, it was noted to be intact with a 3 vessel cord. Uterine bleeding stable. The perineum and vagina were inspected and noted to have no laceration. EBL was 100cc. Patient and tolerated delivery well. Apgars 8/9. Dr Del Cid notified of vaginal delivery and orders reviewed. Cadence wood agrees with current plan of care. 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
--- NOTE | 2024-12-09 00:40 | DCINST_ITS ---
Discharge Instructions DC O2, CPAP, BIPAP needs Home O2 Discharge instructions: No Dressing / Incision Discharge Activity: Return to Normal Activity May resume sexual activity in: 6-8 weeks Dressing / Incision Call your doctor if you observe: Fever of 101 or Higher, Coldness, Increased Pain, Numbness or Tingling, Change in Color, Inability to urinate, Inability to have a bowel movement, Using more than 1 pad per hour, Shortness of breath, Dizziness, Fainting spells, Swelling in the ankles, Chest pain, Increased palpitations (irregular heartbeat), Calf discomfort and Uncontrolled pain Follow Up Care Please Follow Up With: Kecia Faye CNM When: Please call the office to schedule your follow up appointment in 6 weeks. If you had high blood pressure please call to schedule an appointment in 2 weeks. Test Results: Test results from this visit will be discussed in further detail at your follow- up appointment, if applicable. Discharge Plan Admission Admit Date/Time: 12/08/24 11:32 Attending Provider: Kecia Faye Primary Care Provider: Care PhysicianAnusha Primary Discharge Orders/Prescriptions Prescriptions: No Action PNV no.[id number] 400 mcg-35 mg- 25 mg-5 mg tablet,chewable 1 tab PO DAILY cephalexin 500 mg capsule 500 mg PO Q6 7 Days Qty: 28 0RF Referrals / Follow Up: Care Physician,Anusha Primary [Primary Care Provider] -
[2024-12-09] MEDS: Oxytocin 15 Units/NS 250ml 15 UNITS/250 ML IV.SOLN 83 UNITS IV (00:54)
--- NOTE | 2024-12-09 02:23 | PLAC_PTH ---
PATIENT: COOPER CROCKETT LOC: WP U#:[id number] AGE/SX: 34/F ROOM: WP006 RE12/08/[address]: Kecia Faye CNM : 1990 BED: 1 DIS: 12/10/2024 SPEC #: [id number] RECD: 12/09/24 05:11 STATUS: CORNELIA ISABEL #: [id number] CARLA: 12/09/24 02:[address]: Kecia Faye DEPT: SURGICAL PATHOLOGY RECD BY: Ricardo Jackson ENTERED: 12/11/24 10:49 SP TYPE: PLACENTA OTHR DR: No Primary Care Phys Tissues: A - Placenta, NOS Procedures: Surgery Specimen Level V HEADER OPERATION: Vaginal delivery PRE-OP DIAGNOSIS: Placental abruption TISSUE SUBMITTED: A- Placenta MICROSCOPIC DIAGNOSIS A. Placenta, gestational age of 36 weeks / 2 days, vaginal delivery: * Marginally inserted membranes without active inflammation * Eccentrically inserted and trivascular umbilical cord without active inflammation * Mature (third trimester) placenta without active inflammation and consistent with the stated gestational age and with an area of intramural hemorrhage (2 cm in diameter) and fibrin deposition involving < 15% of the placental disk MICROSCOPIC DESCRIPTION Slides are reviewed. GROSS DESCRIPTION A. Received in formalin and labeled with the patient's name and date of is a 539 g, 16.6 x 16.3 x 3.4 cm ovoid placental disc. The membranes are river-pink and translucent, inserting marginally with a point of rupture located approximately 4.1 cm from the disc edge. The attached, trivascular, river-white umbilical cord measures 33.7 cm in length by 1.1-1.5 cm in diameter and inserts eccentrically, 4.5 cm from the disc edge; appears possibly compressed near the surface and has thickened [place]'s jelly. The surface is purple-blue and somewhat granular with patchy subchorionic fibrin (<15%). The maternal surface is red-brown with a focally torn and frayed appearance however, when free approximated the maternal surface appears near complete. Sectioning reveals dark red spongy parenchyma with focal hemorrhage and fibrin (<15%). K9 Handler sections are submitted as follows: A1: Membrane rollA2: Umbilical cordA3-A4: Placenta SC 12/11/2024 CPT:15016
--- NOTE | 2024-12-09 02:23 | PLAC_PTH ---
PATIENT: COOPER CROCKETT LOC: WP U#:[id number] AGE/SX: 34/F ROOM: WP006 RE12/08/[address]: Kecia Faye CNM : 1990 BED: 1 DIS: 12/10/2024 SPEC #: [id number] RECD: 12/09/24 05:11 STATUS: CORNELIA ISABEL #: [id number] CARLA: 12/09/24 02:[address]: Kecia Faye DEPT: SURGICAL PATHOLOGY RECD BY: Ricardo Jackson ENTERED: 12/11/24 10:49 SP TYPE: PLACENTA OTHR DR: No Primary Care Phys Tissues: A - Placenta, NOS Procedures: Surgery Specimen Level V HEADER OPERATION: Vaginal delivery PRE-OP DIAGNOSIS: Placental abruption TISSUE SUBMITTED: A- Placenta MICROSCOPIC DIAGNOSIS A. Placenta, gestational age of 36 weeks / 2 days, vaginal delivery: * Marginally inserted membranes without active inflammation * Eccentrically inserted and trivascular umbilical cord without active inflammation * Mature (third trimester) placenta without active inflammation and consistent with the stated gestational age and with an area of intramural hemorrhage (2 cm in diameter) and fibrin deposition involving < 15% of the placental disk MICROSCOPIC DESCRIPTION Slides are reviewed. GROSS DESCRIPTION A. Received in formalin and labeled with the patient's name and date of is a 539 g, 16.6 x 16.3 x 3.4 cm ovoid placental disc. The membranes are river-pink and translucent, inserting marginally with a point of rupture located approximately 4.1 cm from the disc edge. The attached, trivascular, river-white umbilical cord measures 33.7 cm in length by 1.1-1.5 cm in diameter and inserts eccentrically, 4.5 cm from the disc edge; appears possibly compressed near the surface and has thickened [place]'s jelly. The surface is purple-blue and somewhat granular with patchy subchorionic fibrin (<15%). The maternal surface is red-brown with a focally torn and frayed appearance however, when free approximated the maternal surface appears near complete. Sectioning reveals dark red spongy parenchyma with focal hemorrhage and fibrin (<15%). [employer] sections are submitted as follows: A1: Membrane rollA2: Umbilical cordA3-A4: Placenta SC 12/11/2024 CPT:94904
[2024-12-09 05:08] LABS: Pathology Specimen OB SEE PATHOLOGY REPORT
[2024-12-09] MEDS: Senna/Docusate Sodium 1 Tablet PO (08:38)
[2024-12-10 01:42] VITALS: BP 95/74; PULSE 76; RESP 16; TEMP 36.6; O2SAT 96
--- NOTE | 2024-12-10 05:56 | PN.OBGYN_ITS ---
Subjective Subjective Patient doing well without complaints. Tolerating PO. Ambulating and voiding without difficulty. Feeding well. Denies chest pain, shortness of breath, calf pain/swelling, fevers, chills, lightheadedness. Objective Data Objective Data Vital Signs: Vital Signs Temp Pulse Resp BP Pulse Ox O2 Del Method 97.8 F 76 16 95/74 96 Room Air 12/10/24 01:42 12/10/24 01:42 12/10/24 01:42 12/10/24 01:42 12/10/24 01:42 12/10/24 01:42 Oxygen Delivery Method Room Air Weight: 151 lb Body Mass Index (BMI) 23.6 Intake & Output: Intake and Output for Last 24 Hours 12/08/24 12/09/24 12/10/24 23:59 23:59 23:59 Intake Total 4446.74 / 4446.74 600.47 / 600.47 Output Total 1800 / 1800 100 / 100 Balance 2646.74 / 2646.74 500.47 / 500.47 Lab / Micro Data Attestation: I reviewed the patient's lab results. 12/08/24 08:30 Micro: Microbiology 12/08/24 08:30 Genital vaginal Group B Streptococcus (PCR) - Final ROS Constitutional Constitutional: Reports systems reviewed and no addt'l complaints, except as documented; Denies anorexia or headache(s) Cardiovascular Cardiovascular: Reports systems reviewed and no addt'l complaints, except as documented; Denies dizziness, dyspnea, nausea or tachypnea Respiratory/Chest Respiratory/Chest: Reports systems reviewed and no addt'l complaints, except as documented; Denies cough, dyspnea, shortness of breath at rest or tachypnea Gastrointestinal Gastrointestinal: Reports systems reviewed and no addt'l complaints, except as documented; Denies abdominal pain, constipation or nausea Genitourinary Genitourinary: Reports systems reviewed and no addt'l complaints, except as documented; Denies burning urination, difficulty urinating, dysuria, urinary frequency or urinary incontinence Musculoskeletal Musculoskeletal: Reports systems reviewed and no addt'l complaints, except as documented Integumentary Integumentary: Reports systems reviewed and no addt'l complaints, except as documented Neurologic Neurologic: Reports systems reviewed and no addt'l complaints, except as documented; Denies abnormal speech, dizziness or headache(s) Psychiatric Psychiatric: Reports systems reviewed and no addt'l complaints, except as documented Endocrine Endocrinology: Reports systems reviewed and no addt'l complaints, except as documented Hematologic/Lymphatic Hematologic/Lymphatic: Reports systems reviewed and no addt'l complaints, except as documented Physical Exam Const alert, oriented x3 and no apparent distress Neck full ROM Resp normal respiratory effort, normal air movement and no retractions Effort and Inspection: able to speak in complete sentences and symmetric chest movement GI soft to palpation Bladder / Kidney Exam: bladder normal to palpation Uterus Palpation: uterus fundus firm Extremity normal to inspection and full ROM Psych mental status grossly normal, thought process normal and cooperative Assessment & Plan (1) Vaginal delivery: COMMENT: KW girl placental abruption PLAN: s/p PPD # 1 1. routine post delivery care 2. breast feeding- support given 3. rh positive 4. rubella immune 5. Discharge home if desired (2) Placental abruption: (3) Encounter for induction of labor: (4) Headache in : (5) Thrombocytopenia affecting : COMMENT: Platelet count has been greater than 100K so no intervention needed at this time. She does not meet the criteria for ITP. If Platelets are greater than 80,000, she can get Epidural anesthesia since that is what she wants.. (6) Nasal septum ulceration: (7) UTI in : QUALIFIERS: Trimester: second trimester Qualified Code(s): O23.42 - Unspecified infection of urinary tract in , second trimester COMMENT: macrobid initially. Culture actinomyces, at 50,000 but will treat with Amoxil X 4 wk and will then need repeat culture. LM for ID to discuss, patient declining ATB tx. (8) Cystocele with incomplete uterovaginal prolapse: COMMENT: declines pessary (9) Hx of delivery, currently : COMMENT: first 36 wks (10) Supervision of high-risk : QUALIFIERS: Trimester: third trimester Qualified Code(s): O09.93 - Supervision of high risk , unspecified, third trimester COMMENT: PRR , MARGO 01/04/25,girl PC Ivette Arellano Victor Manuel (11) Hx of delivery by vacuum extraction, currently : COMMENT: first (12) : QUALIFIERS: Weeks of gestation: 34 weeks Qualified Code(s): Z 3A.34 - 34 weeks gestation of COMMENT: NIPT low risk, f/u anatomy complete & nl. Charges/Coding Multi Select Codes Urinary/Genital Urinary/Genital CPT Codes: No Charge
[2024-12-10 13:00] VITALS: BP 98/72; PULSE 88; RESP 16; TEMP 36.8; O2SAT 98
[2024-12-10] MEDS: Senna/Docusate Sodium 1 Tablet PO (13:42)
[2024-12-10 16:13] VITALS: BP 95/70; PULSE 87; RESP 16; TEMP 36.7; O2SAT 98
== END 2024-12-10 19:00 | disposition home or self-care (01) | DRG 805 ==
LOC: WP 12:10
PROVIDERS: Obstetrics & Gynecology; Admitting Provider Advanced Practice Midwife; Referring Provider Advanced Practice Midwife; Visit Provider Advanced Practice Midwife
DX: O45.93 Premature separation of placenta, unspecified, third trimester (principal); Z37.0 Single live birth; O60.14X0 Preterm labor third trimester with preterm delivery third trimester, not applicable or unspecified; Z3A.36 36 weeks gestation of pregnancy; O99.892 Other specified diseases and conditions complicating childbirth; N81.2 Incomplete uterovaginal prolapse; O76 Abnormality in fetal heart rate and rhythm complicating labor and delivery; Z87.59 Personal history of other complications of pregnancy, childbirth and the puerperium
CPT/HCPCS: 59025; 59050; 76819; 81001; 85025; 85384; 86780; 86850; 86900; 86901; 87081; 87086; 87653; 88307; 99221; G0378; J2405